=== PATIENT | female | born 1950 | race Caucasian/White ===

== ENCOUNTER 2022-12-16 18:21 | Outpatient (RCR) | payer OTHER, SELFPAY | END 2023-01-09 23:59 | disposition home or self-care (01) | LOC: MM 18:21 | PROVIDERS: PCP Internal Medicine; Visit Provider Internal Medicine | DX: Z51.81 Encounter for therapeutic drug level monitoring (principal); Z79.01 Long term (current) use of anticoagulants; I48.91 Unspecified atrial fibrillation | CPT/HCPCS: 85610; G0463 ==

== ENCOUNTER 2023-01-15 10:40 | Outpatient (RCR) | payer OTHER, SELFPAY | END 2023-02-09 16:55 | disposition home or self-care (01) | LOC: MM 10:40 | PROVIDERS: PCP Internal Medicine; Visit Provider Internal Medicine | DX: Z51.81 Encounter for therapeutic drug level monitoring (principal); Z79.01 Long term (current) use of anticoagulants; I48.91 Unspecified atrial fibrillation | CPT/HCPCS: 85610; G0463 ==

== ENCOUNTER 2023-02-10 09:12 | Outpatient (RCR) | payer OTHER, SELFPAY | END 2023-03-12 17:29 | disposition home or self-care (01) | LOC: MM 09:12 | PROVIDERS: PCP Internal Medicine; Visit Provider Internal Medicine | DX: Z51.81 Encounter for therapeutic drug level monitoring (principal); Z79.01 Long term (current) use of anticoagulants; I48.91 Unspecified atrial fibrillation ==

== ENCOUNTER 2023-03-13 08:45 | Outpatient (RCR) | payer OTHER, SELFPAY | END 2023-04-10 16:46 | disposition home or self-care (01) | LOC: MM 08:45 | PROVIDERS: PCP Internal Medicine; Visit Provider Internal Medicine | DX: Z51.81 Encounter for therapeutic drug level monitoring (principal); Z79.01 Long term (current) use of anticoagulants; I48.91 Unspecified atrial fibrillation | CPT/HCPCS: 85610; G0463 ==

== ENCOUNTER 2023-04-13 01:45 | Outpatient (RCR) | payer OTHER, SELFPAY | END 2023-05-12 17:20 | disposition home or self-care (01) | LOC: MM 01:45 | PROVIDERS: PCP Internal Medicine; Visit Provider Internal Medicine | DX: Z51.81 Encounter for therapeutic drug level monitoring (principal); Z79.01 Long term (current) use of anticoagulants; I48.91 Unspecified atrial fibrillation | CPT/HCPCS: 85610; G0463 ==

== ENCOUNTER 2023-05-13 00:15 | Outpatient (RCR) | payer OTHER, SELFPAY | END 2023-06-11 16:04 | disposition home or self-care (01) | LOC: MM 00:15 | PROVIDERS: PCP Internal Medicine; Visit Provider Internal Medicine | DX: Z51.81 Encounter for therapeutic drug level monitoring (principal); Z79.01 Long term (current) use of anticoagulants; I48.91 Unspecified atrial fibrillation | CPT/HCPCS: 85610; G0463 ==

== ENCOUNTER 2023-05-27 12:57 | Outpatient (OUT) | payer OTHER, SELFPAY ==
--- NOTE | 2023-05-27 | MM_ITS ---
Patient Name: AFSHIN DENT MR#: [id number] : 1950 Exam Date: 05/27/2023 Ordering Doctor: DR MEHUL AGUERO M.D. RADIOLOGY REPORT PROCEDURE: MM TOMOSYNTHESIS SCREENING BI COMPARISON: MG MAMM SCREEN 3D АННА CAD, 05/23/2021. MG MAMM SCREEN 3D АННА CAD, 05/26/2022. INDICATIONS: Screening for malignant neoplasm Calculator Name NCI Breast Cancer Risk Assessment Tool 5 Year Breast Cancer Risk n/a% Lifetime Breast Cancer Risk n/a% Personal Breast Cancer Yes, Left breast cancer 2001 Personal Ovarian Cancer No Treatments Pt. had анна breast reduction surgery in 2001. Lt breast cancer found in excised tissue Family Cancers Aunt-maternal with breast cancer at age ~70; Aunt-maternal with breast cancer at age ~70; Aunt-maternal with breast cancer at age ~70; Father with lung, prostate, colon cancer at age ~75; Sister with colon cancer at age 51; Brother with lung cancer at age 64; Grandmother-maternal with lung cancer at age ~80; Uncle-maternal with colon cancer at age ~70. LOCATION: [facility] BREAST COMPOSITION: Scattered areas fibroglandular density. FINDINGS: DIAGNOSTIC CATEGORY 2--BENIGN FINDING. NO CHANGE FROM COMPARISON. Scattered benign-appearing calcifications are present. Scattered benign-appearing lymph nodes are present. RIGHT BREAST: No significant suspicious finding. Stable focal asymmetry with micro clip marker upper outer quadrant LEFT BREAST: No significant suspicious finding. Stable focal asymmetry upper outer quadrant for micro clip marker RECOMMENDATIONS: ROUTINE MAMMOGRAM AND CLINICAL EVALUATION IN 12 MONTHS. PLEASE NOTE: A NORMAL MAMMOGRAM DOES NOT EXCLUDE THE POSSIBILITY OF BREAST CANCER. A CLINICALLY SUSPICIOUS PALPABLE LUMP SHOULD BE BIOPSIED. Dictated by: Angel Fernández MD on 05/28/2023 at 07:50 Approved by: Angel Fernández MD on 05/28/2023 at 07:51
== END 2023-05-27 12:58 | disposition home or self-care (01) ==
LOC: MAMMO 12:57
PROVIDERS: PCP Internal Medicine; Visit Provider Internal Medicine
DX: Z12.31 Encounter for screening mammogram for malignant neoplasm of breast (principal); Z80.3 Family history of malignant neoplasm of breast; Z80.1 Family history of malignant neoplasm of trachea, bronchus and lung; Z80.42 Family history of malignant neoplasm of prostate; Z80.0 Family history of malignant neoplasm of digestive organs
CPT/HCPCS: 77063; 77067

== ENCOUNTER 2023-06-12 09:41 | Outpatient (RCR) | payer OTHER, SELFPAY | END 2023-07-10 15:24 | disposition home or self-care (01) | LOC: MM 09:41 | PROVIDERS: PCP Internal Medicine; Visit Provider Internal Medicine | DX: Z51.81 Encounter for therapeutic drug level monitoring (principal); Z79.01 Long term (current) use of anticoagulants; I48.91 Unspecified atrial fibrillation | CPT/HCPCS: 85610; G0463 ==

== ENCOUNTER 2023-06-29 12:30 | Outpatient (RCR) | payer OTHER, SELFPAY | END 2023-07-12 07:00 | disposition home or self-care (01) | LOC: PT 12:30 | PROVIDERS: PCP Internal Medicine; Visit Provider Nurse Practitioner Family | DX: M51.36 Other intervertebral disc degeneration, lumbar region (principal) | CPT/HCPCS: 97110; 97162 ==

== ENCOUNTER 2023-07-13 01:17 | Outpatient (RCR) | payer OTHER, SELFPAY | END 2023-08-12 17:20 | disposition home or self-care (01) | LOC: MM 01:17 | PROVIDERS: PCP Internal Medicine; Visit Provider Internal Medicine | DX: Z51.81 Encounter for therapeutic drug level monitoring (principal); Z79.01 Long term (current) use of anticoagulants; I48.91 Unspecified atrial fibrillation | CPT/HCPCS: 85610; G0463 ==

== ENCOUNTER 2023-08-13 01:07 | Outpatient (RCR) | payer OTHER, SELFPAY | END 2023-09-10 17:20 | disposition home or self-care (01) | LOC: MM 01:07 | PROVIDERS: PCP Internal Medicine; Visit Provider Internal Medicine | DX: Z51.81 Encounter for therapeutic drug level monitoring (principal); Z79.01 Long term (current) use of anticoagulants; I48.91 Unspecified atrial fibrillation | CPT/HCPCS: 85610; G0463 ==

== ENCOUNTER 2023-09-11 03:28 | Outpatient (RCR) | payer OTHER, SELFPAY | END 2023-10-09 14:08 | disposition home or self-care (01) | LOC: MM 03:28 | PROVIDERS: PCP Internal Medicine; Visit Provider Internal Medicine | DX: Z51.81 Encounter for therapeutic drug level monitoring (principal); Z79.01 Long term (current) use of anticoagulants; I48.91 Unspecified atrial fibrillation | CPT/HCPCS: 85610; G0463 ==

== ENCOUNTER 2023-10-12 00:22 | Outpatient (RCR) | payer OTHER, SELFPAY | END 2023-11-10 18:00 | disposition home or self-care (01) | LOC: MM 00:22 | PROVIDERS: PCP Internal Medicine; Visit Provider Internal Medicine | DX: Z51.81 Encounter for therapeutic drug level monitoring (principal); Z79.01 Long term (current) use of anticoagulants; I48.91 Unspecified atrial fibrillation | CPT/HCPCS: 85610; G0463 ==

== ENCOUNTER 2023-11-11 00:22 | Outpatient (RCR) | payer OTHER, SELFPAY | END 2023-12-11 11:20 | disposition home or self-care (01) | LOC: MM 00:22 | PROVIDERS: PCP Internal Medicine; Visit Provider Internal Medicine | DX: Z51.81 Encounter for therapeutic drug level monitoring (principal); Z79.01 Long term (current) use of anticoagulants; I48.91 Unspecified atrial fibrillation | CPT/HCPCS: 85610; G0463 ==

== ENCOUNTER 2023-12-14 00:27 | Outpatient (RCR) | payer OTHER, SELFPAY | END 2024-01-08 10:01 | disposition home or self-care (01) | LOC: MM 00:27 | PROVIDERS: PCP Internal Medicine; Visit Provider Internal Medicine | DX: Z51.81 Encounter for therapeutic drug level monitoring (principal); Z79.01 Long term (current) use of anticoagulants; I48.91 Unspecified atrial fibrillation | CPT/HCPCS: 85610; G0463 ==

== ENCOUNTER 2024-01-11 00:53 | Outpatient (RCR) | payer OTHER, SELFPAY | END 2024-02-10 09:48 | disposition home or self-care (01) | LOC: MM 00:53 | PROVIDERS: PCP Internal Medicine; Visit Provider Internal Medicine | DX: Z51.81 Encounter for therapeutic drug level monitoring (principal); Z79.01 Long term (current) use of anticoagulants; I48.91 Unspecified atrial fibrillation | CPT/HCPCS: 85610; G0463 ==

== ENCOUNTER 2024-02-11 00:33 | Outpatient (RCR) | payer OTHER, SELFPAY | END 2024-03-11 09:37 | disposition home or self-care (01) | LOC: MM 00:33 | PROVIDERS: PCP Internal Medicine; Visit Provider Internal Medicine | DX: Z51.81 Encounter for therapeutic drug level monitoring (principal); Z79.01 Long term (current) use of anticoagulants; I48.91 Unspecified atrial fibrillation | CPT/HCPCS: 85610; G0463 ==

== ENCOUNTER 2024-03-14 01:24 | Outpatient (RCR) | payer OTHER, SELFPAY | END 2024-04-11 23:53 | disposition home or self-care (01) | LOC: MM 01:24 | PROVIDERS: PCP Internal Medicine; Visit Provider Internal Medicine | DX: Z51.81 Encounter for therapeutic drug level monitoring (principal); Z79.01 Long term (current) use of anticoagulants; I48.91 Unspecified atrial fibrillation | CPT/HCPCS: 85610; G0463 ==

== ENCOUNTER 2024-04-12 01:38 | Outpatient (RCR) | payer OTHER, SELFPAY | END 2024-05-12 23:43 | disposition home or self-care (01) | LOC: MM 01:38 | PROVIDERS: PCP Internal Medicine; Visit Provider Internal Medicine | DX: Z51.81 Encounter for therapeutic drug level monitoring (principal); Z79.01 Long term (current) use of anticoagulants; I48.91 Unspecified atrial fibrillation | CPT/HCPCS: 85610; G0463 ==

== ENCOUNTER 2024-05-13 11:42 | Outpatient (RCR) | payer OTHER, SELFPAY | END 2024-06-11 23:59 | disposition home or self-care (01) | LOC: MM 11:42 | PROVIDERS: PCP Internal Medicine; Visit Provider Internal Medicine | DX: Z51.81 Encounter for therapeutic drug level monitoring (principal); Z79.01 Long term (current) use of anticoagulants; I48.91 Unspecified atrial fibrillation | CPT/HCPCS: 85610; G0463 ==

== ENCOUNTER 2024-05-31 11:27 | Outpatient (OUT) | payer OTHER, SELFPAY ==
--- NOTE | 2024-05-31 11:30 | MM_ITS ---
Patient Name: AFSHIN DENT MR#: [id number] : 1950 Exam Date: 05/31/2024 Ordering Doctor: DR MEHUL AGUERO M.D. RADIOLOGY REPORT PROCEDURE: MM TOMOSYNTHESIS SCREENING BI COMPARISON: MM TOMOSYNTHESIS SCREENING BI, 05/27/2023. MG MAMM SCREEN 3D АННА CAD, 05/26/2022. INDICATIONS: Screening Calculator Name NCI Breast Cancer Risk Assessment Tool 5 Year Breast Cancer Risk n/a% Lifetime Breast Cancer Risk n/a% Personal Breast Cancer Yes, Left breast cancer 2001 Personal Ovarian Cancer No Treatments Pt. had анна breast reduction surgery in 2001. Lt breast cancer found in excised tissue Family Cancers Aunt-maternal with breast cancer at age ~70; Aunt-maternal with breast cancer at age ~70; Aunt-maternal with breast cancer at age ~70; Father with lung, prostate, colon cancer at age ~75; Sister with colon cancer at age 51; Brother with lung cancer at age 64; Grandmother-maternal with lung cancer at age ~80; Uncle-maternal with colon cancer at age ~70. LOCATION: [facility] BREAST COMPOSITION: There are scattered areas of fibroglandular density. FINDINGS: DIAGNOSTIC CATEGORY 2--BENIGN FINDING. NO CHANGE FROM COMPARISON. Scattered benign-appearing nodules are present. Scattered benign-appearing calcifications are present. Scattered benign-appearing lymph nodes are present. RIGHT BREAST: No significant suspicious finding. Stable micro clip marker upper outer quadrant, posterior breast LEFT BREAST: No significant suspicious finding. Stable micro clip marker upper outer quadrant, mid breast RECOMMENDATIONS: ROUTINE MAMMOGRAM AND CLINICAL EVALUATION IN 12 MONTHS. PLEASE NOTE: A NORMAL MAMMOGRAM DOES NOT EXCLUDE THE POSSIBILITY OF BREAST CANCER. A CLINICALLY SUSPICIOUS PALPABLE LUMP SHOULD BE BIOPSIED. Dictated by: Angel Fernández MD on 06/01/2024 at 08:20 Approved by: Angel Fernández MD on 06/01/2024 at 08:21
== END 2024-05-31 11:28 | disposition home or self-care (01) ==
LOC: MAMMO 11:27
PROVIDERS: PCP Internal Medicine; Visit Provider Internal Medicine
DX: Z12.31 Encounter for screening mammogram for malignant neoplasm of breast (principal); Z80.3 Family history of malignant neoplasm of breast; Z80.1 Family history of malignant neoplasm of trachea, bronchus and lung; Z80.42 Family history of malignant neoplasm of prostate; Z80.0 Family history of malignant neoplasm of digestive organs; Z51.81 Encounter for therapeutic drug level monitoring; Z79.01 Long term (current) use of anticoagulants; I48.91 Unspecified atrial fibrillation
CPT/HCPCS: 77063; 77067; 85610; G0463

== ENCOUNTER 2024-06-13 03:55 | Outpatient (RCR) | payer OTHER, SELFPAY | END 2024-07-12 09:33 | disposition home or self-care (01) | LOC: MM 03:55 | PROVIDERS: PCP Internal Medicine; Visit Provider Internal Medicine | DX: Z51.81 Encounter for therapeutic drug level monitoring (principal); Z79.01 Long term (current) use of anticoagulants; I48.91 Unspecified atrial fibrillation | CPT/HCPCS: 85610; G0463 ==

== ENCOUNTER 2024-07-14 00:41 | Outpatient (RCR) | payer OTHER, SELFPAY | END 2024-08-12 15:19 | disposition home or self-care (01) | LOC: MM 00:41 | PROVIDERS: PCP Internal Medicine; Visit Provider Internal Medicine | DX: Z51.81 Encounter for therapeutic drug level monitoring (principal); Z79.01 Long term (current) use of anticoagulants; I48.91 Unspecified atrial fibrillation | CPT/HCPCS: 85610; G0463 ==

== ENCOUNTER 2024-08-15 02:34 | Outpatient (RCR) | payer OTHER, SELFPAY | END 2024-09-09 13:34 | disposition home or self-care (01) | LOC: MM 02:34 | PROVIDERS: PCP Internal Medicine; Visit Provider Internal Medicine | DX: Z51.81 Encounter for therapeutic drug level monitoring (principal); Z79.01 Long term (current) use of anticoagulants; I48.91 Unspecified atrial fibrillation | CPT/HCPCS: 85610; G0463 ==

== ENCOUNTER 2024-09-11 07:46 | Outpatient (RCR) | payer OTHER, SELFPAY | END 2024-10-07 13:20 | disposition home or self-care (01) | LOC: MM 07:46 | PROVIDERS: PCP Internal Medicine; Visit Provider Internal Medicine | DX: Z51.81 Encounter for therapeutic drug level monitoring (principal); Z79.1 Long term (current) use of non-steroidal anti-inflammatories (NSAID); I48.91 Unspecified atrial fibrillation | CPT/HCPCS: 85610; G0463 ==

== ENCOUNTER 2024-09-15 08:55 | Outpatient (OUT) | payer OTHER, SELFPAY ==
--- OUTSIDE RECORDS SUMMARY | 2024-09-15 09:17 | XMS_ITS | CCD ---
Author Organization [facility] Care Team Providers Care Paint Specialist Name Role Phone ANDRZEJ MARINELLI Unavailable Unavailable ANDRZEJ MARINELLI B Unavailable Unavailable CORINNA DAVIS Unavailable Unavailable ANDRZEJ MARINELLI Unavailable Unavailable CORINNA DAVIS Unavailable Unavailable Unavailable Unavailable Corinna Davis MD Primary Care Provider Kyle Almendarez II Unavailable [phone] Bandar Bales Unavailable Adrienne Mas Unavailable Loli Pineda Unavailable Ke Ellington Unavailable BERNIE Almendarez Primary Care Provider DO Ari Atkinson Attending Provider KYLE ALMENDAREZ Primary Care Physician Kyle Almendarez II Primary Care Unavail able Kyle Almendarez II Primary Care Unavail able Sharif GIBBS, Dr. Danish Pierre Attending Unavailable Sharif GIBBS, Dr. Danish Pierre Referring Unavailable FAWWAD, YOUNG H Attending Unavailable FAWWATiffanie, YOUNG H Admitting Unavailable DR KYLE ALMENDAREZ Primary Care Unavailable DR KYLE ALMENDAREZ Primary Care Unavailable FAWWAD, YOUNG H Attending Unavailable FAWWAD, YOUNG H Admitting Unavailable FAWWAD, YOUNG H Admitting Unavailable FAWWAD, YOUNG H Attending Unavailable DR KYLE ALMENDAREZ Primary Care Unavailable FAWWAD, YOUNG H Attending Unavailable FAWWAD, YOUNG H Admitting Unavailable DR KYLE ALMENDAREZ Primary Care Unavailable FAWWAD, YOUNG H Attending Unavailable FAWWAD, YOUNG H Admitting Unavailable DR KYLE ALMENDAREZ Primary Care Unavailable FAWWAD, YOUNG H Attending Unavailable FAWWAD, YOUNG H Admitting Unavailable ALMENDAREZ, DR CARVER Primary Care Unavailable FAWWAD, YOUNG H Attending Unavailable FAWWAD, YOUNG H Admitting Unavailable ALMENDAREZ, DR CARVER Primary Care Unavailable FAWWAD, YOUNG H Attending Unavailable FAWWAD, YOUNG H Admitting Unavailable ALMENDAREZ, DR CARVER Primary Care Unavailable ALMENDAREZ, DR CARVER Primary Care Unavailable ALMENDAREZ, DR CARVER Consulting Unavailable ALMENDAREZ, DR CARVER Attending Unavailable ALMENDAREZ, DR CARVER Admitting Unavailable WEST, DR KE Russ Consulting Unavailable ALMENDAREZ, DR CARVER Primary Care Unavailable COMFORT, RACHEAL Consulting Unavailable COMFORT, RACHEAL Attending Unavailable COMFORT, RACHEAL Admitting Unavailable ALMENDAREZ, DR CARVER Primary Care Unavailable ALMENDAREZ, DR CARVER Consulting Unavailable ALMENDAREZ, DR CARVER Attending Unavailable ALMENDAREZ, DR CARVER Admitting Unavailable DICKERSON, WINCHA Consulting Unavailable JOVANNI, JULIAN Consulting Unavailable JOVANNI, JULIAN Attending Unavailable ALMENDAREZ, DR CARVER Primary Care Unavailable JOVANNI, JULIAN Admitting Unavailable FAWWAD, YOUNG H Admitting Unavailable FAWWAD, YOUNG H Attending Unavailable ALMENDAREZ, DR CARVER Primary Care Unavailable FAWWAD, YOUNG H Admitting Unavailable FAWWAD, YOUNG H Attending Unavailable ALMENDAREZ, DR CARVER Primary Care Unavailable FAWWAD, YOUNG H Attending Unavailable FAWWAD, YOUNG H Admitting Unavailable ALMENDAREZ, DR CARVER Primary Care Unavailable Timmis, Cathie H Admitting Unavailable Timmis, Cathie H Referring Unavailable Timmis, Cathie H Attending Unavailable Micah Walker Attending Unavailable Micah Walker Admitting Unavailable Timmis, Cathie H Attending Unavailable Timmis, Cathie H Admitting Unavailable Timmis, Cathie H Referring Unavailable Demetrio Devine II Unavailable BERNIE Almendarez Primary Care Provider MD Demetrio Devine II Attending Provider [phone] THA Gonzalez Attending Provider Farnaz Gonzalez Unavailable Kyle Almendarez MD Primary Care Provider BERNIE Almendarez Primary Care Provider MD Demetrio Devine II Attending Provider MD Eriberto Davis Attending Provider MD Quita Hall Attending Provider Kyle Almendarez MD Unavailable Kyle Almendarez MD Primary Care Provider [phone] DANISH OLGUIN Referring Unavailable KYLE ALMENDAREZ Primary Care Unavailable ANDRZEJ MARINELLI Referring Unavailable KYLE ALMENDAREZ Primary Care Unavailable QUITA HALL Attending Unavailable KYLE ALMENDAREZ Primary Care Unavailable ANDRZEJ MARINELLI Referring Unavailable Kelvin WILSON, Jenae Unavailable Kyle Almendarez II Primary Care Provider [phone] Ly DO, Apryl Thrasher Attending Provider HEMSILVIA, ROSALVA Dallas Attending Unavailable HEMMER, ROSALVA Dallas Attending Unavailable HEMMER, ROSALVA Dallas Attending Unavailable HEMMER, ROSALVA Dallas Attending Unavailable HEMMER, ROSALVA Dallas Attending Unavailable HEMMER, ROSALVA Dallas Attending Unavailable HEMMER, ROSALVA Dallas Attending Unavailable Hall, Quita Attending Unavailable Quita Hall Admitting Unavailable Kyle Almendarez Primary Care Unavailable Eriberto Davis Admitting Unavailable Kyle Almendarez Primary Care Unavailable Eriberto Davis Attending Unavailable Kyle Almendarez Primary Care Unavailable Demetrio Devine II Attending UnavailDemetrio Harding II Admitting Unavailabl e Kyle Almendarez Primary Care Unavailable Apryl Cardenas Attending Unavailable Apryl Cardenas Admitting Unavailable Allergies Allergy Classification Reported Allergen(s) Allergy Type Date of Onset Reaction(s) Facility (15 sources) Acetaminophen / Propoxyphene; Translations: [Darvocet A500] Drug Allergy Hallucinations Xtime Other (5 sources) Indomethacin; Translations: [Indocin CAPS] Drug Allergy Hallucinations [facility] 250 DO Work Phone: (20 sources) tapentadol; Translations: [Nucynta TABS] Drug Allergy 02-05-20 17 Other: See Comments, Hallucinations [facility] (20 sources) Indomethacin; Translations: [indomethacin] Drug Allergy 02-28-20 18 Other: See Comments, Hallucinations, Unknown [facility] (5 sources) Propoxyphene N-Acetaminophen; Translations: [PROPOXYPHENE N-ACETAMINOPHEN] Drug Allergy 05-02-20 13 Other: See Comments, Hallucinations [facility] (10 sources) Indomethacin Drug Allergy hallucinations Xtime Other (15 sources) Darwescet-N 100; Translations: [acetaminophen / propoxyphene] Drug allergy 05-02-20 13 Unknown, Hallucination [facility] (20 sources) Lisinopril; Translations: [lisinopril] Drug Allergy 11-08-19 22 Cough [facility] (19 sources) Propoxyphene; Translations: [propoxyphene] Drug Allergy 11-08-19 22 Hallucinating, Hallucinating, hallucinations [facility] (20 sources) tapentadol; Translations: [TAPENTADOL] Drug Allergy 11-08-19 22 Confusion, Confusion, hallucinations [facility] Comment on above: confused/hallucinati ons after hip replacement surgery (20 sources) Escitalopram; Translations: [escitalopram] Drug Allergy 06-22-20 23 Unknown (qualifier value), Unknown [facility] (1 source) Morphine Drug Allergy 06-16-20 21 [facility] (2 sources) Procyclidine; Translations: [Indocin] Drug Allergy [facility] (2 sources) tapentadol; Translations: [Nucynta] Drug Allergy 02-18-20 17 [facility] (4 sources) Escitalopram; Translations: [ESCITALOPRAM OXALATE] Drug Allergy 07-02-20 23 Other [facility] (20 sources) Acetaminophen; Translations: [acetaminophen] Drug Allergy 06-22-20 23 Hallucinations [facility] (11 sources) Morphine Drug Allergy 11-26-19 23 Nausea Only [facility] (11 sources) tapentadol Drug Allergy 11-26-19 23 [facility] (11 sources) Other Propensity to adverse reactions 05-02-20 13 Hallucinations [facility] (1 source) Escitalopram Drug Allergy 09-02-19 25 [facility] Rep[facility] (2 sources) Indomethacin Drug Allergy 03-31-20 24 [facility] Repository Medications Current Medications Medication Drug Class(es) Dates Sig (Normalized) Sig (Original) [id number] 200 actuat albuterol 0.09 mg/actuat metered dose inhaler (9 sources) beta2-Adrenergic Agonist Start: 09-02-2024 take 2 puff(s) by inhalation every four hours albuterol HFA 90 mcg/act inhaler Inhale 2 puffs every 4 (four) hours if needed for shortness of breath 09/02/2024 Active Start: 09-02-2024 take 1 puff(s) by in halation every four to six hours as needed for wheezing Albuterol Sulfate 90 mcg/actuation HFA aerosol inhaler Active 2 PUFF INHALATION EVERY 4-6 HOURS as needed for shortness of breath or wheezing 8.5 September 02, 2024 12:00am Start: 06-08-2021 take 2 puff(s) by in halation four times daily as needed Albuterol Sulfate HFA 108 (90 Base) MCG/ACT 2 puffs Inhalation qid prn Please provide spacer May, Active Start: 06-08-2021 take 2 puff(s) by in halation four times daily as needed Albuterol Sulfate HFA 108 (90 Base) MCG/ACT 2 puffs Inhalation qid prn Please provide spacer May, Active amoxicillin 500 mg oral capsule (20 sources) Penicillin-class Antibacterial Start: 09-21-2023 take 4 capsules by mouth every hour amoxicillin (Amoxil) 500 MG capsule Indications: Ganglion cyst of right foot To take 4 pills by mouth 1 hour prior to procedure and for pills postprocedure by mouth 8 capsule 2 09/21/2023 Active Start: 05-04-2021 take 1 tablet by jessica every twelve hours Amoxicillin 875 MG 1 capsule Orally every 12 hours for 7 days Apr, Not-Taking/PRN aspirin 81 mg chewable tablet (20 sources) Platelet Aggregation Inhibitor, Nonsteroidal Anti-inflammatory Drug Start: 09-22-2022 aspirin 81 mg Inna w Tab 81 mg = 1 tab(s), Chewed, Daily, Refills(s) 0, Prophylaxis Start Date: 09/22/22 Status: Ordered Start: 02-27-2018 End: 07-21-2022 Aspirin 81 mg Tablet,Delayed Release (Dr/Ec) Discontinued 81 MG PO TuFr@0900 10 September 06, 2020 12:00am July 21, 2022 6:40am Start: 01-10-2018 End: 02-27-2018 take 1 tablet by mouth once daily Aspirin 81 mg tablet,delayed release (DR/EC) Discontinued 81 MG PO Daily January 09, 2018 11:00pm February 27, 2018 5:37pm Aspirin EC 81 MG TBEC 2 per week Quantity: 24 Refills: 3 Ordered: 10-Jun-2022 Danish Olguin MD Active take 1 tablet by jessica th every week Aspirin EC 81 MG Oral Tablet Delayed Release TAKE TABLET Weekly Quantity: 90 Refills: 0 Ordered: 09-Sep-2021 Danish Olguin MD Active Comment on above: Take 81 mg by mouth as needed. 2 per week biotin 10 mg oral tablet (11 sources) take 1 tablet by mouth once daily biotin 10 MG tablet Take 10 mg by mouth 1 (one) time each day. Active Calcium (12 sources) Phosphate Binder, Calcium Start: 09-22-2022 take 1 tablet by mouth twice daily Calcium 600+D oral tablet 1 tab(s), Oral, BID, Refill(s) 0, Prophylaxis Start Date: 09/22/22 Status: Ordered Calcium Active calcium carbonate 1250 mg or al tablet (20 sources) Start: 09-06-2020 Calcium Carbon ate (Oyster Shell Calcium 500) 500 mg calcium (1,250 mg) Tablet Active 500 MG PO Every morning September 06, 2020 12:00am Start: 02-27-2018 End: 09-07-2020 take 1 tablet by mouth once daily in the morning Calcium Carbonate (Calcium 600) 600 mg calcium (1,500 mg) Tablet Discontinued 600 MG PO Every morning February 26, 2018 11:00pm September 07, 2020 8:58am take 1 tablet by jessica th once daily calcium carbonate 600 mg calcium (1,500 mg) tablet Take 1 tablet (1,500 mg) by mouth once daily. Active calcium carbonat e (CALCIUM 600 ORAL) Take by mouth. 0 Active Comment on above: Take by mouth. Cholecalciferol (20 sources) Vitamin D Start: 07-21-2022 take 1 capsule by mouth once daily Cholecalciferol (Vitamin D3) 100 mcg (4,000 unit) Capsule Active 100 MCG PO Daily July 21, 2022 12:00am Start: 07-21-2022 Cholecalcifero l (Vitamin D3) Active July 21, 2022 1:00am Start: 07-21-2022 Cholecalcifero l (Vitamin D3) Active July 21, 2022 12:00am Start: 07-21-2022 Cholecalcifero l (Vitamin D3) Active July 21, 2022 12:00am take 1 capsule by mo uth in the morning cholecalciferol (Vitamin D-3) 25 MCG (1000 UT) capsule Take 1,000 Units by mouth in the morning. Active take 1 capsule by mo uth once daily cholecalciferol (Vitamin D-3) 25 MCG (1000 UT) capsule Take 1 capsule (25 mcg) by mouth once daily. Active Chondroitin Sulfates / Glucosamine (20 sources) Start: 09-22-2022 take 3 capsules by mouth once daily Glucosamine Chondroitin 3 cap(s), Oral, Daily, Refill(s) 0, Prophylaxis Start Date: 09/22/22 Status: Ordered Start: 07-30-2017 End: 08-23-2020 take 2 tablets by mouth once daily Glucosamine-Chondroitin (Cosamin Ds) 500-400 mg Tablet Discontinued 2 TAB PO Daily July 30, 2017 12:00am August 23, 2020 6:42pm Glucosamine-Naeem droitin (GLUCOSAMINE CHONDR COMPLEX PO) 1 (one) time each day. Active Classic (3 sources) Start: 09-22-2022 take 1 tablet by mouth once daily Classic 1 tab(s), Oral, Daily, Refill(s) 0, Prophylaxis Start Date: 09/22/22 Status: Ordered docusate sodium 50 mg / sennosides, intermediate 8.6 mg oral tablet (1 source) Start: 11-27-2020 take 8.6-50 mg by mouth at bedtime Senokot S 8.6-50 MG 2 tablets Orally at bedtime for 30 day(s) November, Active fluticasone propionate 0.05 mg/actuat metered dose nasal spray (18 sources) Corticosteroid Start: 05-04-2021 take 1 spray(s) nasal route once daily Flonase Allergy Relief 50 MCG/ACT 1 spray in each nostril Nasally Once a day for 14 day(s) Apr, Active Start: 05-04-2021 take 1 spray(s) nasa l route once daily Flonase Allergy Relief 50 MCG/ACT 1 spray in each nostril Nasally Once a day for 14 day(s) Apr, Active Start: 09-06-2020 End: 09-10-2021 Fluticasone Propionate 50 mcg/actuation [place],Suspension Discontinued 2 SPRAY NARES-BOTH Daily 2 September 06, 2020 12:00am September 10, 2021 9:58am furosemide 20 mg oral tablet (20 sources) Loop Diuretic Start: 09-10-2021 take 1 tablet by mouth once daily as needed for edema Furosemide 20 mg Tablet Active 20 MG PO Daily as needed for Edema September 10, 2021 12:00am Lasix Active Comment on above: Take 20 mg by mouth once daily. gabapentin 300 mg oral capsule (20 sources) Anti-epileptic Agent Start: 09-10-2021 take 1 capsule by mouth four times daily Gabapentin 300 mg capsule Active 300 MG PO Four times daily September 10, 2021 12:00am Start: 09-10-2021 gabapentin (Ne urontin) 300 MG capsule Indications: Spinal stenosis of lumbar region with neurogenic claudication Take 1 capsule (300 mg) by mouth in the morning and 1 capsule (300 mg) at noon and 1 capsule (300 mg) in the evening and 1 capsule (300 mg) before bedtime. 400 capsule 3 09/22/2023 Active GABAPENTIN ORAL Take by mouth. 0 Active Comment on above: Take by mouth. Glucosamine (4 sources) Glucosamine Acti ve Glucosamine-Chondroit- Vit C-Mn (7 sources) Start: 09-10-2021 take 1 capsule by mouth once daily Glucosamine-Chondroit -Vit C-Mn Active 1 CAP PO Daily September 10, 2021 1:00am Start: 09-10-2021 take 1 capsule by [facility] once daily Upilmxqntfx-Fjnekcaxn-Rbt C-Mn Active 1 CAP PO Daily September 10, 2021 12:00am Ifstspjjoqp-Qiztsaatn-Rxf C-Mn 500-400 mg Capsule (2 sources) Start: 09-10-2021 take 1 capsule by mouth once daily Xwqsddkkbrv-Wzhpxpcvq-Kzf C-Mn 500-400 mg Capsule Active 1 CAP PO Daily September 10, 2021 12:00am glucosamine/ruby Baumann sod (glucosamine-chondroitin) 1,500-1,200 mg/30 mL liquid (3 sources) glucosamine/naeem dr qiana Baumann sod (glucosamine-chondroitin) 1,500-1,200 mg/30 mL liquid Take by mouth once daily. Active glucosamine/naeem dr qiana Baumann sod (glucosamine-chondroitin) 1,500-1,200 mg/30 mL liquid Take by mouth once daily. 0 Active hydrocortisone 10 mg/ml / neomycin 3.5 mg/ml / polymyxin b [id number] unt/ml otic solution (5 sources) Aminoglycoside Antibacterial, Polymyxin-class Antibacterial, Corticosteroid Start: 05-04-2021 Nppfxjsz-Ngtbtolrm-AG [id number] 4 drops into affected ear Otic Three times a day for 7 day(s) Apr, Active magnesium oxide 400 mg oral tablet (20 sources) Start: 02-16-2020 End: 09-07-2020 take 1 tablet by mouth once daily in the morning Magnesium Oxide 400 mg (241.3 mg magnesium) Tablet Active 400 MG PO Every morning September 06, 2020 12:00am Comment on above: Take by mouth. methylPREDNISolone 4 mg oral tablet (8 sources) Corticosteroid Start: 09-02-2024 End: 09-07-2024 take 1 tablet by mouth once Methylprednisolone (Medrol ([place])) 4 mg tablets,dose pack Active 0 PO per package directions September 02, 2024 12:00am PO PER PKG DIR for 6 days Start: 06-22-2023 Medrol 4 MG as directed Orally daily for 6 Jun, Active metroNIDAZOLE 0.01 mg/mg topical gel (11 sources) Nitroimidazole Antimicrobial Start: 02-24-2024 metroNIDAZOLE (Metrogel) 1 % gel Indications: Rosacea Apply topically Daily 60 g 2 02/24/2024 Active multivit-min/ferrou s fumarate (MULTI VITAMIN ORAL) (3 sources) take 1 tablet by mouth once daily multivit-min/[place] us fumarate (MULTI VITAMIN ORAL) Take 1 tablet by mouth once daily. Active take 1 tablet by mouth once johny y multivit-min/ferrous fumarate (MULTI VITAMIN ORAL) Take 1 tablet by mouth once daily. 0 Active Multivitamin With Folic Acid (Thera) 400 mcg Tablet (18 sources) Start: 09-06-2020 take 1 tablet by mouth once daily in the morning Multivitamin With Folic Acid (Thera) 400 mcg Tablet Active 1 TAB PO Every morning September 06, 2020 1:00am Start: 09-06-2020 take 1 tablet by jessica th once daily in the morning Multivitamin With Folic Acid (Thera) 400 mcg Tablet Active 1 TAB PO Every morning September 06, 2020 12:00am Start: 08-23-2020 End: 08-23-2020 take 1 tablet by mouth once daily Multivitamin With Folic Acid (Thera) 400 mcg Tablet Discontinued 1 TAB PO Daily August 23, 2020 1:00am August 23, 2020 7:56pm Start: 08-23-2020 End: 08-23-2020 take 1 tablet by mouth once daily Multivitamin With Folic Acid (Thera) 400 mcg Tablet Discontinued 1 TAB PO Daily August 23, 2020 12:00am August 23, 2020 6:56pm mupirocin 0.02 mg/mg topical ointment (1 source) RNA Synthetase Inhibitor Antibacterial Start: 07-04-2024 End: 07-14-2024 mupirocin (Bactroban) 2 % ointment Indications: Hair follicle infection Apply topically 3 (three) times a day for 10 days 22 g 07/04/2024 07/14/2024 Active ofloxacin 3 mg/ml ophthalmic solution (2 sources) Quinolone Antimicrobial Start: 05-25-2024 End: 06-04-2024 ofloxacin (Ocuflox) 0.3 % ophthalmic solution Indications: Hordeolum externum of left upper eyelid Administer 1 drop into the left eye in the morning and 1 drop at noon and 1 drop in the evening and 1 drop before bedtime. Do all this for 10 days. 10 mL 05/25/2024 06/04/2024 Active Miralax (20 sources) Osmotic Laxative Start: 09-22-2022 take 17 g by mouth once daily MiraLax 17 gm, Oral, Daily, Refill(s) 0, Prophylaxis Start Date: 09/22/22 Status: Ordered Start: 02-07-2020 End: 09-07-2020 Polyethylene Glycol 3350 (Mi ralax) 17 gram Powder In Packet Active 17 GM PO Daily as needed for Constipation September 06, 2020 12:00am Miralax 17 grams orally at hour of sleep Active Comment on above: Take by mouth once d aily. Dissolve dose in 4 - 8 ounces of liquid and take as directed. Vit-Fe Fumarate-FA ( Vitamin) 27-0.8 MG tablet (11 sources) Vit-Fe Fumarate-FA ( Vitamin) 27-0.8 MG tablet 1 (one) time each day at the same time. Active propranolol hydrochloride 10 mg oral tablet (15 sources) beta-Adrenergic Severo Start: 04-05-2024 End: 04-05-2025 Propranolol 10 mg tablet Active MG PO September 02, 2024 12:00am Start: 11-11-2023 take 1 tablet by jessica th in the morning propranolol (Inderal) 10 mg tablet Take 1 tablet (10 mg) by mouth early in the morning.. 11/11/2023 Active Vitamin B Complex (7 sources) Start: 11-12-2021 take 1 capsule by mo orh once daily Vitamin B Complex Active 1 CAP PO Daily November 12, 2021 12:00am Start: 11-12-2021 take 1 capsule by mouth once d aily Vitamin B Complex Active 1 CAP PO Daily November 11, 2021 11:00pm Vitamin B Complex oral capsule (3 sources) Start: 09-22-2022 take 1 capsule by mouth once daily Vitamin B Complex oral capsule 1 cap(s), Oral, Daily, Refill(s) 0, Prophylaxis Start Date: 09/22/22 Status: Ordered warfarin sodium 1 mg oral tablet (20 sources) Vitamin K Antagonist Start: 07-15-2022 Warfarin 1 mg tablet Active MG PO September 02, 2024 12:00am Start: 09-10-2021 End: 09-02-2024 Warfarin 2.5 mg Tablet Disco ntinued 2.5 MG PO Daily September 10, 2021 12:00am September 02, 2024 10:15am 2.5 5x a week 2 days additional 1mg Start: 08-09-2020 End: 09-07-2020 Warfarin 2.5 mg Tablet Disco ntinued 1.25 MG PO As Directed August 09, 2020 12:00am September 07, 2020 8:58am On Hold: HOLD UNTIL CLEARED BY DR LOWERY Takes 1.25 mg on Thursday Start: 08-09-2020 End: 09-07-2020 Warfarin Discontinued 1.25 M G PO As Directed August 09, 2020 1:00am September 07, 2020 9:58am Takes 1.25 mg on Thursday Start: 02-16-2020 End: 08-09-2020 Warfarin 2.5 mg tablet Disco ntinued 0 .ROUTE .COMPLEX February 15, 2020 11:00pm August 09, 2020 10:23am On Hold: Resume on 02/21/20. takes 2.5 mg Thursday thru Thursday, 1.25mg on Thursday Start: 01-10-2018 End: 09-07-2020 Warfarin 2.5 mg Tablet Disco ntinued 2.5 MG PO As Directed August 09, 2020 12:00am September 07, 2020 8:58am On Hold: HOLD UNTIL CLEARED BY DR LOWERY Takes 2.5 mg Thursday thru Thursday warfarin sodium (WARFARIN ORAL) Take by mouth. 0 Active Warfarin Sodium TABS TAKE 1 TABLET DAILY OR DIRECTED BY [facility] Quantity: 0 Refills: 0 Ordered: 06-Sep-2021 DO Active Comment on above: Take by mouth. Zinc (20 sources) Start: 09-22-2022 take 140 mg by mouth once daily Zinc 140 mg, Oral, Daily, Refills(s) 0, Prophylaxis Start Date: 09/22/22 Status: Ordered Start: 07-30-2017 End: 09-07-2020 take 1 tablet by mouth once daily in the morning Zinc 50 mg Tablet Discontinued 50 MG PO Every morning July 30, 2017 12:00am September 07, 2020 8:58am Start: 07-30-2017 End: 09-07-2020 take 50 mg by mouth once daily in the morning Zinc Discontinued 50 MG PO Every morning July 30, 2017 1:00am September 07, 2020 9:58am Start: 07-30-2017 End: 09-07-2020 take 50 mg by mouth once daily in the morning Zinc Discontinued 50 MG PO Every morning July 30, 2017 12:00am September 07, 2020 8:58am take 1 capsule by mo [facility] once daily zinc 50 MG tablet Take 1 capsule by mouth 1 (one) time each day. Active Zinc 50 mg tab T yamileth by mouth. 0 Active take 1 tablet by jessica once daily Zinc 50 MG 1 tablet Orally Once a day for 30 day(s) Active Comment on above: Take by mouth. zinc gluconate 50 mg oral tablet (20 sources) Start: 09-06-2020 take 1 tablet by mouth once daily Zinc Gluconate 50 mg Tablet Active 50 MG PO Daily September 06, 2020 12:00am Completed/Discontinued Medications Medication Drug Class(es) Dates Sig (Normalized) Sig (Original) acetaminophen 325 mg oral tablet (18 sources) Start: 08-23-2020 End: 09-10-2021 take 2 tablets by mouth every four hours as needed for pain Acetaminophen 325 mg Tablet Discontinued 650 MG PO Q4H as needed for Pain September 06, 2020 12:00am September 10, 2021 9:57am Start: 08-23-2020 End: 09-10-2021 take 650 mg by mouth every four hours Acetaminophen Discontinued 650 MG PO Q4H September 06, 2020 1:00am September 10, 2021 10:57am acetaminophen 325 mg / HYDROcodone bitartrate 5 mg oral tablet (20 sources) Opioid Agonist Start: 09-06-2020 End: 11-12-2021 take 1 tablet by mouth every six hours as needed for pain Hydrocodone-Acetaminophen 5-325 mg Tablet Discontinued 1 TAB PO Q6H as needed for Pain 30 September 06, 2020 November 12, 2021 6:54am Start: 02-15-2020 End: 08-09-2020 take 2 tablets by mouth every four to six hours as needed for pain Hydrocodone-Acetaminophen ([place]) 5-325 mg tablet Discontinued 2 TAB PO EVERY 4-6 HOURS as needed for Pain Scale 6 - 10 February 16, 2020 11:46am August 09, 2020 10:19am amLODIPine 10 mg oral tablet (9 sources) Dihydropyridine Calcium Channel Severo Start: 09-06-2020 End: 09-10-2021 take 1 tablet by mouth once daily Amlodipine 10 mg Tablet Discontinued 10 MG PO Daily September 06, 2020 12:00am September 10, 2021 9:57am azithromycin 250 mg oral tablet (8 sources) Macrolide Antimicrobial Start: 06-08-2021 Zithromax 250 MG 2 tablet on the first day, then 1 tablet daily for 4 days Orally Once a day for 5 day(s) May, Not-Taking/PRN baclofen 10 mg oral tablet (6 sources) gamma-Aminobutyric Acid-ergic Agonist End: 07-02-2023 take 1 tablet by mouth once daily baclofen (Lioresal) 10 mg tablet Take 1 tablet (10 mg) by mouth once daily. 0 07/02/2023 Discontinued (Therapy completed) calcium carbonate 1500 mg / cholecalciferol 200 unt oral capsule (9 sources) Vitamin D Start: 07-30-2017 End: 01-09-2018 take 1 tablet by mouth once daily Calcium Carbonate-Vitamin D3 (Calcium 600 + D(3)) 600 mg calcium- 200 unit Capsule Discontinued 1 TAB PO Daily July 30, 2017 12:00am January 09, 2018 5:37am diazePAM 5 mg oral tablet (20 sources) Benzodiazepine Start: 02-15-2020 End: 09-10-2021 take 1 tablet by mouth four times daily as needed for muscle spasms Diazepam 5 mg tablet Discontinued 5 MG PO Four times daily as needed for Muscle Spasm August 09, 2020 10:23am September 07, 2020 8:58am diclofenac sodium 75 mg delayed release oral tablet (9 sources) Nonsteroidal Anti-inflammatory Drug Start: 02-07-2020 End: 08-09-2020 take 1 tablet by mouth twice daily Diclofenac Sodium 75 mg tablet,delayed release (DR/EC) Discontinued 75 MG PO Twice daily February 06, 2020 11:00pm August 09, 2020 10:19am dilTIAZem hydrochloride 30 mg oral tablet (1 source) Calcium Channel Severo Start: 03-23-2024 End: 03-28-2024 take 1 tablet by mouth twice daily dilTIAZem (Cardizem) 30 mg immediate release tablet Indications: Paroxysmal atrial fibrillation (Multi) Take 1 tablet (30 mg) by mouth 2 times a day. 180 tablet 3 03/23/2024 03/28/2024 Discontinued (Discontinued by another clinician) docusate sodium 100 mg oral capsule (18 sources) Start: 09-06-2020 End: 09-10-2021 take 1 capsule by mouth twice daily Docusate Sodium (Dok) 100 mg Capsule Discontinued 100 MG PO Twice daily 60 September 06, 2020 12:00am September 10, 2021 9:58am Start: 07-30-2017 End: 03-09-2019 take 1 capsule by mouth twice daily Docusate Sodium (Stool Softener) 100 mg Capsule Discontinued 100 MG PO Twice daily July 30, 2017 12:00am March 09, 2019 11:25am Durolane (7 sources) Start: 05-18-2018 Durolane 06 2017 60 mg [facility] Restore (9 sources) Start: 07-30-2017 End: 03-09-2019 take 1 capsule by mouth once daily [facility] Restore Discontinued 1 CAP PO Daily July 30, 2017 1:00am March 09, 2019 12:26pm Start: 07-30-2017 End: 03-09-2019 take 1 capsule by mouth once daily [facility] Restore Discontinued 1 CAP PO Daily July 30, 2017 12:00am March 09, 2019 11:26am Eye Vitamin (9 sources) Start: 03-09-2019 End: 09-07-2020 take 1 capsule by mouth once daily Eye Vitamin Discontinued 1 CAP PO Daily March 09, 2019 12:00am September 07, 2020 9:58am Start: 03-09-2019 End: 09-07-2020 take 1 capsule by mouth once daily Eye Vitamin Discontinued 1 CAP PO Daily March 08, 2019 11:00pm September 07, 2020 8:58am flecainide acetate 50 mg oral tablet (9 sources) Antiarrhythmic Start: 01-10-2018 End: 03-09-2019 take 1 tablet by mouth twice daily Flecainide 50 mg Tablet Discontinued 50 MG PO Twice daily 60 January 09, 2018 11:00pm March 09, 2019 11:25am gluc kiran/chondro kiran A/vit C/Mn (GLUCOSAMINE-CHONDR OITIN COMPLX ORAL) (1 source) gluc kiran/chondro kiran A/vit C/Mn (GLUCOSAMINE-CHONDR OITIN COMPLX ORAL) Take by mouth. 0 Active Comment on above: Take by mouth. Glucosamine Chondr 1500 Complx Oral Capsule (5 sources) Glucosamine Naeem dr 1500 Complx Oral Capsule TAKE 2 CAPSULE Daily Quantity: 0 Refills: 0 Ordered: 06-Sep-2021 DO Active hyaluronate (20 sources) Start: 03-25-2017 Euflexxa 13 Se p, 2016 2 mL Start: 03-18-2017 Euflexxa 06 Se p2016 2 mL Start: 03-11-2017 Euflexxa 30 Au g2016 2 mL losartan potassium 25 mg oral tablet (9 sources) Angiotensin 2 Receptor Severo Start: 09-06-2020 End: 09-10-2021 take 1 tablet by mouth once daily in the morning Losartan 25 mg Tablet Discontinued 25 MG PO Every morning 30 February 25th, 2021 12:00am September 10, 2021 10:01am lubiprostone 0.024 mg oral capsule (10 sources) Chloride Channel Activator Start: 11-21-2020 take 1 capsule by mouth twice daily at mealtime Lubiprostone 24 MCG 1 capsule with food and water Orally Twice a day for 30 day(s) November, Not-Taking/PRN Start: 11-21-2020 take 1 capsule by mo [facility] twice daily at mealtime Lubiprostone 24 MCG 1 capsule with food and water Orally Twice a day for 30 day(s) November, Not-Taking Magnesium (20 sources) Start: 07-30-2017 End: 02-16-2020 take 2 tablets by mouth once daily Magnesium 200 mg Tablet Discontinued 400 MG PO Daily July 30, 2017 12:00am February 16, 2020 11:44am Start: 07-30-2017 End: 02-16-2020 take 400 mg by mouth once daily Magnesium Discontinued 400 MG PO Daily July 30, 2017 1:00am February 16, 2020 12:44pm Start: 07-30-2017 End: 02-16-2020 take 400 mg by mouth once daily Magnesium Discontinued 400 MG PO Daily July 30, 2017 12:00am February 16, 2020 11:44am take 1 capsule by [facility] once daily Magnesium 400 MG capsule Take 400 mg by mouth 1 (one) time each day. Active Magnesium Active take 1 tablet by jessica once daily Magnesium 400 MG Oral Tablet Take 1 tablet daily Quantity: 0 Refills: 0 Ordered: 06-Sep-2021 DO Active meloxicam 7.5 mg oral tablet (18 sources) Nonsteroidal Anti-inflammatory Drug Start: 02-27-2018 End: 02-07-2020 take 1 tablet by mouth twice daily Meloxicam 7.5 mg Tablet Discontinued 7.5 MG PO Twice daily February 26, 2018 11:00pm February 07, 2020 12:41pm Start: 07-30-2017 End: 01-10-2018 take 1 tablet by mouth twice daily Meloxicam 7.5 mg Tablet Discontinued 7.5 MG PO Twice daily July 30, 2017 12:00am January 10, 2018 6:51am Multi Vitamin Oral Tablet (5 sources) take 1 tablet by mouth once daily Multi Vitamin Oral Tablet TAKE 1 TABLET DAILY. Quantity: 0 Refills: 0 Ordered: 06-Sep-2021 DO Active Multivitamin preparation (17 sources) Start: 07-30-2017 End: 08-09-2020 take 1 tablet by mouth once daily in the morning Multivitamin Discontinued 1 TAB PO Every morning July 30, 2017 1:00am August 09, 2020 11:26am Start: 07-30-2017 End: 08-09-2020 take 1 tablet by mouth once daily in the morning Multivitamin Discontinued 1 TAB PO Every morning July 30, 2017 12:00am August 09, 2020 10:26am Multivitamin Act samantha Multivitamin Tablet (2 sources) Start: 07-30-2017 End: 08-09-2020 take 1 tablet by mouth once daily in the morning Multivitamin Tablet Discontinued 1 TAB PO Every morning July 30, 2017 12:00am August 09, 2020 10:26am Multivitamin With Folic Acid (Thera) 400 mcg tablet (9 sources) Start: 08-23-2020 End: 09-07-2020 take 1 tablet by mouth once daily in the morning Multivitamin With Folic Acid (Thera) 400 mcg tablet Discontinued 1 TAB PO Every morning August 23, 2020 7:55pm September 07, 2020 9:58am Start: 08-23-2020 End: 09-07-2020 take 1 tablet by mouth once daily in the morning Multivitamin With Folic Acid (Thera) 400 mcg tablet Discontinued 1 TAB PO Every morning August 23, 2020 6:55pm September 07, 2020 8:58am naloxegol 12.5 mg oral tablet (10 sources) Opioid Antagonist take 1 tablet by mouth once daily in the morning Movantik 12.5 MG TAKE 1 TABLET BY MOUTH EVERY MORNING Oral for 30 Not-Taking/PRN omeprazole 20 mg delayed release oral capsule (20 sources) Proton Pump Inhibitor Start: End: take 2 capsules by mouth once daily in the morning Omeprazole 20 mg capsule,delayed release(DR/EC) Discontinued 40 MG PO Every morning July 21, 2022 6:40am September 02, 2024 10:16am Start: 07-21-2022 take 40 mg by mouth once daily in the morning Omeprazole Active 40 MG PO Every morning July 21, 2022 7:40am Start: 11-21-2020 Omeprazole 40 mg capsule,delayed release(DR/EC) Active MG PO September 02, 2024 12:00am Start: 07-30-2017 End: 07-21-2022 take 1 capsule by mouth once daily in the morning Omeprazole 20 mg Capsule,Delayed Release(Dr/Ec) Discontinued 20 MG PO Every morning September 06, 2020 12:00am July 21, 2022 6:40am Comment on above: Take 20 mg by mouth once daily. ondansetron 4 mg oral tablet (10 sources) Serotonin-3 Receptor Antagonist Ondansetron HCl 4 MG TAKE 1 TABLET BY MOUTH THREE TIMES DAILY Oral tid prn for 30 days PRN Not-Taking/PRN oxyCODONE hydrochloride 5 mg oral tablet (18 sources) Opioid Agonist Start: End: take 2 tablets by mouth every six hours as needed for pain Oxycodone 5 mg Tablet Discontinued 10 MG PO Every 6 hours as needed for Pain Scale 6 - 10 August 23, 2020 September 07, 2020 8:58am Start: 08-23-2020 End: 09-07-2020 take 1 tablet by mouth every six hours as needed for pain Oxycodone 5 mg Tablet Discontinued 5 MG PO Every 6 hours as needed for Pain Scale 1 - 5 August 23, 2020 September 07, 2020 8:58am Start: 08-23-2020 End: 09-07-2020 take 10 mg by mouth every six hours Oxycodone Discontinued 10 MG PO Every 6 hours August 23, 2020 September 07, 2020 9:58am Polyethylene Glycols (10 sources) Polyethylene Gly col 3350 - 1 packet mixed with 8 ounces of fluid Orally Once a day Not-Taking/PRN Polyethylene Gly col 3350 - 1 packet mixed with 8 ounces of fluid Orally Once a day Not-Taking potassium chloride 10 meq extended release oral capsule (9 sources) Start: 11-04-2020 End: 09-10-2021 take 1 capsule by mouth once daily Potassium Chloride 10 mEq capsule, extended release Discontinued 10 MEQ PO Daily November 03, 2020 11:00pm September 10, 2021 9:58am predniSONE 10 mg oral tablet (9 sources) Start: 09-06-2020 End: 09-10-2021 take 2 tablets by mouth once daily Prednisone 10 mg Tablet Discontinued 20 MG PO Daily 0 September 06, 2020 12:00am September 10, 2021 9:58am Please contact the information source for Taper Schedule details. Start: 09-06-2020 End: 09-10-2021 take 20 mg by mouth once daily Prednisone Discontinued 20 MG PO Daily 0 September 06, 2020 1:00am September 10, 2021 10:58am Vit No.200-Uzqv-Osrcj ( Vitamin) 27 mg iron- 800 mcg Tablet (9 sources) Start: 08-09-2020 End: 09-07-2020 take 1 tablet by mouth once daily Vit No.809-Wnhq-Pxfrd ( Vitamin) 27 mg iron- 800 mcg Tablet Discontinued 1 TAB PO Daily August 09, 2020 1:00am September 07, 2020 9:58am Start: 08-09-2020 End: 09-07-2020 take 1 tablet by mouth once daily Vit No.857-Wzdg-Rdmyu ( Vitamin) 27 mg iron- 800 mcg Tablet Discontinued 1 TAB PO Daily August 09, 2020 12:00am September 07, 2020 8:58am vit no.124/iron/folic ( VITAMIN ORAL) (1 source) vit no.124/iron/folic ( VITAMIN ORAL) Take by mouth. 0 Active Comment on above: Take by mouth. Psyllium (9 sources) Start: 07-30-19 End: 01-10-20 take 1 [tsp_us] by mouth once daily Psyllium Powder Discontinued 2 TSP PO Daily July 30, 2017 12:00am January 09, 2018 5:37am Start: 07-30-2017 End: 01-09-2018 take 1 [tsp_us] by mouth once daily Psyllium Discontinued 2 TSP PO Daily July 30, 2017 1:00am January 09, 2018 6:37am Start: 07-30-2017 End: 01-09-2018 take 1 [tsp_us] by mouth once daily Psyllium Discontinued 2 TSP PO Daily July 30, 2017 12:00am January 09, 2018 5:37am Sennosides (Senna Lax) 8.6 mg Tablet (9 sources) Start: 09-06-2020 End: 09-10-2021 take 2 tablets by mouth once daily at bedtime Sennosides (Senna Lax) 8.6 mg Tablet Discontinued 2 TAB PO Daily at bedtime September 06, 2020 1:00am September 10, 2021 10:58am Start: 09-06-2020 End: 09-10-2021 take 2 tablets by mouth once daily at bedtime Sennosides (Senna Lax) 8.6 mg Tablet Discontinued 2 TAB PO Daily at bedtime September 06, 2020 12:00am September 10, 2021 9:58am sotalol hydrochloride 120 mg oral tablet (8 sources) Antiarrhythmic Start: 02-11-2024 End: 08-26-2024 Sotalol 120 mg tablet Discontinued 120 MG PO February 10, 2024 11:00pm August 26, 2024 10:46am Start: 01-26-2024 take 0.5 tablet by m outh every twelve hours sotalol (Betapace) 120 mg tablet Indications: Paroxysmal atrial fibrillation (Multi) Take 0.5 tablets (60 mg) by mouth every 12 hours. 30 tablet 5 01/26/2024 Active Soy Protein (7 sources) Start: 07-30-2017 End: 01-09-2018 Soy Protein Discontinued 1 s coop/day PO Daily July 30, 2017 1:00am January 09, 2018 6:37am Start: 07-30-2017 End: 01-09-2018 Soy Protein Discontinued 1 s coop/day PO Daily July 30, 2017 12:00am January 09, 2018 5:37am Soy Protein Powder (2 sources) Start: 07-30-2017 End: 01-09-2018 Soy Protein Powder Discontinued 1 scoop/day PO Daily July 30, 2017 12:00am January 09, 2018 5:37am spironolactone 25 mg oral tablet (20 sources) Aldosterone Antagonist Start: 07-30-2017 End: 03-28-2025 take 1 tablet by mouth once daily at bedtime Spironolactone 25 mg Tablet Discontinued 25 MG PO Daily at bedtime September 06, 2020 12:00am September 10, 2021 9:59am tiZANidine 2 mg oral capsule (9 sources) Central alpha-2 Adrenergic Agonist Start: 02-27-2018 End: 03-09-2019 take 1 capsule by mouth once daily Tizanidine 2 mg Capsule Discontinued 2 MG PO daily February 26, 2018 11:00pm March 09, 2019 11:25am Triamcinolone (20 sources) Corticosteroid Start: 09-14-2019 Kenalog -40 mg Sep, 40 mg Start: 04-13-2018 Kenalog -40 mg Apr, 40 mg Start: 03-25-2017 Kenalog -40 mg Mar, 40 mg vitamin b complex capsule (1 source) take 1 capsule by mouth once daily vitamin b complex capsule Take 1 capsule by mouth once daily. 0 Active Comment on above: Take 1 capsule by mo [facility] once daily. Vitamin B Complex Capsule (2 sources) Start: 11-12-2021 End: 08-26-2024 take 1 capsule by mouth once daily Vitamin B Complex Capsule Discontinued 1 CAP PO Daily November 11, 2021 11:00pm August 26, 2024 10:47am Vitamin B-3 TABS (3 sources) Vitamin B-3 TABS TAKE 1 TABLET DAILY DIRECTED. Quantity: 0 Refills: 0 Ordered: 06-Sep-2021 DO Active Problems Active Problems Problem Classification Problem Date Documented Da te Episodic/Chronic Abdominal pain (20 sources) Right flank pain; Translations: [Unspecified abdominal pain] Onset: 4 Resolved: 5 05-22-2019 Episodic Acute bronchitis (2 sources) Viral bronchitis; Translations: [Acute bronchitis due to other specified organisms] 09-02-2024 Episodic Administrative/social admission (11 sources) Other reduced mobility; Translations: [Impaired mobility and activities of daily living] 08-24-2020 Episodic Cancer; other and unspecified primary (5 sources) H/O: neoplasm; Translations: [Personal history of other specified diseases] Episodic Cardiac dysrhythmias (20 sources) Paroxysmal atrial fibrillation; Translations: [Atrial fibrillation] Onset: 3 01-09-2018 Chronic Cardiac dysrhythmias (20 sources) Tachycardia; Translations: [Tachycardia, unspecified] Onset: 4 01-09-2018 Episodic Chronic kidney disease (13 sources) Chronic kidney disease stage 3B ; Translations: [Stage 3b chronic kidney disease (HCC)] Onset: 3 11-25-2022 Chronic Deficiency and other anemia (20 sources) Anemia; Translations: [Anemia, unspecified] Onset: 4 Resolved: 5 08-24-2020 Episodic Diabetes mellitus without complication (13 sources) Impaired glucose tolerance; Translations: [Impaired glucose tolerance (oral)] Onset: 3 11-25-2022 Episodic Disorders of lipid metabolism (13 sources) Mixed hyperlipidemia; Translations: [Mixed hyperlipidemia] Onset: 3 11-25-2022 Chronic Diverticulosis and diverticulitis (10 sources) Diverticular disease; Translations: [Diverticulosis of intestine, part unspecified, without perforation or abscess without bleeding] Chronic E Codes: Fall (19 sources) Fall; Translations: [Unspecified fall, initial encounter] Onset: 4 Resolved: 5 08-01-2022 Episodic Esophageal disorders (20 sources) Lewis's esophagus; Translations: [Lewis's esophagus without dysplasia] Onset: 3 08-24-2020 Chronic Essential hypertension (20 sources) Essential hypertension; Translations: [Unspecified essential hypertension] Onset: 2 01-09-2018 Chronic Essential hypertension (1 source) Essential hypertension Onset: 8 Fluid and electrolyte disorders (20 sources) Hypokalemia; Translations: [Hypokalemia] Onset: 4 11-04-2020 Episodic Gout and other crystal arthropathies (13 sources) Podagra; Translations: [Gout, unspecified] Onset: 3 11-25-2022 Chronic Headache; including migraine (9 sources) Migraine 03-09-2019 Chronic Inflammation; infection of eye (except that caused by tuberculosis or sexually transmitteddisease) (2 sources) Hordeolum externum of upper eyelid of left eye; Translations: [Hordeolum externum left upper eyelid] 05-25-2024 Episodic Malaise and fatigue (2 sources) Physical deconditioning; Translations: [Other malaise] 07-26-2024 Episodic Menopausal disorders (13 sources) Primary ovarian failure; Translations: [Other primary ovarian failure] Onset: 3 11-25-2022 Chronic Mood disorders (13 sources) Reactive depression (situational); Translations: [Major depressive disorder, single episode, unspecified] Onset: 3 11-25-2022 Chronic Nonspecific chest pain (20 sources) Chest pain; Translations: [Chest pain, unspecified] Onset: 4 Resolved: 5 01-09-2018 Episodic Osteoarthritis (20 sources) Osteoarthritis of hip; Translations: [Unilateral primary osteoarthritis, right hip] Onset: 1 Resolved: 1 Chronic Osteoporosis (10 sources) Postmenopausal osteoporosis; Translations: [Age-related osteoporosis without current pathological fracture] Chronic Other acquired deformities (20 sources) Contracture of joint of right ankle; Translations: [Contracture, right ankle] Onset: 3 11-25-2022 Chronic Other acquired deformities (20 sources) Kyphoscoliosis deformity of spine; Translations: [Scoliosis, unspecified] Onset: 3 08-22-2020 Chronic Other acquired deformities (20 sources) Spondylolisthesis; Translations: [Spondylolisthesis, lumbar region] Episodic Other aftercare (20 sources) Drug therapy finding; Translations: [Long-term (current) use of anticoagulants] Onset: 3 07-02-2023 Episodic Other aftercare (5 sources) Encounter for therapeutic drug level monitoring; Translations: [ENC THERAPEUTC DRUG LEVL MONITORING] Onset: 3 Episodic Other circulatory disease (5 sources) History of clinical finding in subject; Translations: [Personal history of other diseases of circulatory system] Episodic Other connective tissue disease (20 sources) History of repair of hip joint; Translations: [Presence of right artificial hip joint] Onset: 3 11-25-2022 Chronic Other connective tissue disease (10 sources) History of left hip replacement; Translations: [Presence of left artificial hip joint] Chronic Other connective tissue disease (10 sources) History of total replacement of right hip joint; Translations: [Presence of right artificial hip joint] Chronic Other connective tissue disease (9 sources) Monoparesis - leg; Translations: [Other symptoms and signs involving the musculoskeletal system] 08-24-2020 Episodic Other connective tissue disease (3 sources) Arthrodesis status; Translations: [Arthrodesis status] Episodic Other connective tissue disease (6 sources) Trochanteric bursitis; Translations: [Trochanteric bursitis, right hip] 02-11-2024 Episodic Other connective tissue disease (5 sources) Trochanteric bursitis, right hip; Translations: [Enthesopathy of hip region] 02-11-2024 Episodic Other connective tissue disease (3 sources) History of lumbar fusion; Translations: [Arthrodesis status] 03-31-2024 Episodic Other connective tissue disease (13 sources) Other symptoms and signs involving the musculoskeletal system; Translations: [Other musculoskeletal symptoms referable to limbs] Onset: 4 11-11-2023 Episodic Other ear and sense organ disorders (9 sources) Bilateral tinnitus; Translations: [Tinnitus, bilateral] Onset: 5 07-26-2024 Episodic Other gastrointestinal disorders (10 sources) Chronic idiopathic constipation; Translations: [Chronic idiopathic constipation] Chronic Other gastrointestinal disorders (13 sources) Irritable bowel syndrome characterized by constipation; Translations: [Irritable bowel syndrome with constipation] Onset: 3 11-25-2022 Chronic Other gastrointestinal disorders (19 sources) Constipation; Translations: [Constipation, unspecified] 08-30-2020 Episodic Other gastrointestinal disorders (10 sources) Esophageal dysphagia; Translations: [Dysphagia, unspecified] Episodic Other gastrointestinal disorders (13 sources) Slow transit constipation; Translations: [Slow transit constipation] Onset: 3 11-25-2022 Episodic Other inflammatory condition of skin (13 sources) Rosacea; Translations: [Rosacea, unspecified] Onset: 4 02-24-2024 Chronic Other injuries and conditions due to external causes (15 sources) At high risk for fall; Translations: [History of falling] Onset: 4 05-25-2024 Episodic Other nervous system disorders (10 sources) Neuropathy; Translations: [Polyneuropathy, unspecified] Chronic Other nervous system disorders (10 sources) Chronic pain; Translations: [Other chronic pain] Chronic Other nervous system disorders (2 sources) Other chronic pain; Translations: [Other chronic pain G89.29] Onset: 1 Resolved: 2 Chronic Other nervous system disorders (9 sources) Cervical myelopathy; Translations: [Disease of spinal cord, unspecified] 02-15-2020 Chronic Other nervous system disorders (20 sources) Postoperative pain ; Translations: [Other acute postprocedural pain] Onset: 4 08-24-2020 Episodic Other nervous system disorders (3 sources) Paresthesia; Translations: [Paresthesia of skin] Episodic Other nervous system disorders (1 source) Paresthesia of skin Episodic Other nervous system disorders (13 sources) Tremor; Translations: [Tremor, unspecified] Onset: 4 09-22-2023 Episodic Other non-traumatic joint disorders (3 sources) Pain in right knee; Translations: [Pain in joint, lower leg] Episodic Other non-traumatic joint disorders (19 sources) Shoulder pain; Translations: [Pain in unspecified shoulder] Onset: 4 Resolved: 5 08-01-2022 Episodic Other non-traumatic joint disorders (19 sources) Pain in unspecified knee; Translations: [Knee pain] Onset: 4 08-01-2022 Episodic Other nutritional; endocrine; and metabolic disorders (10 sources) Body mass index 30+ - obesity; Translations: [Obesity, unspecified] Chronic Other screening for suspected conditions (not mental disorders or infectious disease) (20 sources) Abnormal electrocardiogram [ECG] [EKG]; Translations: [Abnormal findings on diagnostic imaging of other specified body structures] Onset: 8 Resolved: 5 08-24-2020 Episodic Other skin disorders (1 source) Hair follicle disorder; Translations: [Follicular disorder, unspecified] 07-04-2024 Episodic Other upper respiratory disease (1 source) Disorder of the nose; Translations: [Other specified disorders of nose and nasal sinuses] Onset: 3 Episodic Other upper respiratory disease (2 sources) Hoarse; Translations: [Dysphonia] 05-25-2024 Episodic Peripheral and visceral atherosclerosis (20 sources) Peripheral vascular disease; Translations: [Peripheral vascular disease, unspecified] Onset: 0 Resolved: 4 12-03-2022 Chronic Residual codes; unclassified (20 sources) Sleep apnea; Translations: [Sleep apnea, unspecified] Onset: 4 07-21-2022 Chronic Comment on above: no longer need CPAP since lost weight Residual codes; unclassified (13 sources) Dependence on enabling machine or device; Translations: [Dependence on other enabling machines and devices] Onset: 3 11-25-2022 Chronic Residual codes; unclassified (2 sources) Swelling - edema - symptom; Translations: [Edema] Episodic Residual codes; unclassified (20 sources) Patient encounter status; Translations: [Encounter for prophylactic measures, unspecified] Onset: 4 Resolved: 5 08-24-2020 Episodic Residual codes; unclassified (20 sources) History of operative procedure on lumbar spinal structure; Translations: [Other specified postprocedural states] Onset: 4 08-24-2020 Episodic Residual codes; unclassified (13 sources) Edema of right lower limb; Translations: [Localized edema] Onset: 3 11-25-2022 Episodic Residual codes; unclassified (2 sources) Memory impairment; Translations: [Other amnesia] 05-25-2024 Episodic Screening and history of mental health and substance abuse codes (20 sources) Ex-smoker; Translations: [Personal history of tobacco use] Onset: 2 05-25-2024 Episodic Comment on above: quit 1971; Spondylosis; intervertebral disc disorders; other back problems (20 sources) Lumbosacral spondylosis without myelopathy; Translations: [Other spondylosis with radiculopathy, lumbar region] Onset: 1 Resolved: 2 Chronic Superficial injury; contusion (19 sources) Contusion of head; Translations: [Contusion of unspecified part of head, initial encounter] Onset: 4 Resolved: 5 08-01-2022 Episodic Unclassified (2 sources) Abnormal electrocardiogram [ECG] [EKG] / R94.31(ICD-9) Onset: 8 Unclassified (2 sources) Abnormal findings on diagnostic imaging of body structures / R93.8(ICD-9) Onset: 8 Unclassified (1 source) Atrial septal defect / Q21.1(ICD-9) Onset: 8 Unclassified (3 sources) History of clinical finding in subject 09-22-2022 Past or Other Problems Problem Classification Problem Date Documented Da te Episodic/Chronic Chronic obstructive pulmonary disease and bronchiectasis (1 source) Bronchitis, not specified as acute or chronic Onset: 1 Resolved: 1 Episodic Gastrointestinal hemorrhage (4 sources) Gastrointestinal hemorrhage, unspecified; Translations: [GASTROINTESTINAL HEMORRHAGE UNS] Onset: 2 Episodic Immunizations and screening for infectious disease (1 source) Contact with and (suspected) exposure to other viral communicable diseases Onset: 1 Resolved: 1 Episodic Mood disorders (11 sources) Mood disorders Onset: 4 Resolved: 5 09-22-2023 Other aftercare (3 sources) residential (current) use of anticoagulants; Translations: [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 INTERN CURRNT USE ANTICOAGULANTS] Onset: 3 Episodic Other aftercare (1 source) Other penitentiary (current) drug therapy; Translations: [OTH HALF-WAY CURRENT DRUG THERAPY] Onset: 2 Episodic Other ear and sense organ disorders (1 source) Other infective otitis externa, left ear Onset: 1 Resolved: 1 Episodic Other injuries and conditions due to external causes (2 sources) History of falling; Translations: [History of falling] Onset: 4 Episodic Other non-traumatic joint disorders (1 source) Pain in right hip; Translations: [Pain in right hip] Onset: 4 Episodic Other nutritional; endocrine; and metabolic disorders (7 sources) Overweight in adulthood with body mass index of 25 or more but less than 30; Translations: [Overweight] Onset: 4 03-28-2024 Episodic Other nutritional; endocrine; and metabolic disorders (2 sources) Body mass index (BMI) 25.0-25.9, adult; Translations: [Body mass index (BMI) 25.0-25.9, adult] Onset: 4 Episodic Other upper respiratory disease (4 sources) Epistaxis; Translations: [EPISTAXIS] Onset: 2 Episodic Other upper respiratory disease (11 sources) Bleeding from nose; Translations: [Epistaxis] Onset: 3 Resolved: 4 09-22-2023 Episodic Otitis media and related conditions (1 source) Acute serous otitis media, left ear Onset: 1 Resolved: 1 Episodic Residual codes; unclassified (1 source) Pain, unspecified Onset: 1 Resolved: 1 Episodic Residual codes; unclassified (17 sources) Edema; Translations: [Edema] Onset: 3 Resolved: 4 06-05-2023 Episodic Residual codes; unclassified (1 source) Family history of malignant neoplasm of breast; Translations: [FAMILY HX MALIG NEOPLASM OF BREAST] Onset: 2 Episodic Residual codes; unclassified (1 source) Family history of malignant neoplasm of trachea, bronchus and lung; Translations: [FAM HX MALIG NEOPLSM TRACH BRON LNG] Onset: 2 Episodic Residual codes; unclassified (1 source) Family history of malignant neoplasm of digestive organs; Translations: [FAM HX MALIG NEOPLASM DIGESTIV ORGN] Onset: 2 Episodic Residual codes; unclassified (1 source) Family history of malignant neoplasm of prostate; Translations: [FAMILY HX MALIG NEOPLASM PROSTATE] Onset: 2 Episodic Residual codes; unclassified (1 source) Acquired absence of other specified parts of digestive tract; Translations: [ACQ ABSENCE OTH PART DIGESTV TRACT] Onset: 2 Episodic Residual codes; unclassified (1 source) Acquired absence of both cervix and uterus; Translations: [ACQUIRED ABSENCE BOTH CERVIX AND UTERUS] Onset: 2 Episodic Residual codes; unclassified (1 source) Other specified postprocedural states; Translations: [Other specified postprocedural states] Onset: 4 Episodic Spondylosis; intervertebral disc disorders; other back problems (20 sources) Radiculopathy due to lumbar intervertebral disc disorder; Translations: [Intervertebral disc disorders with radiculopathy, lumbar region] Onset: 1 Resolved: 1 Episodic Unclassified (3 sources) Onset: 3 Resolved: 4 07-02-2023 Results Test Name Value Interpretation Reference Range Facility Basophils Auto (Bld) [#/Vol] Ordered By: Apryl Cardenas on 09-08-2024 Basophils (Bld) [#/Vol] Automated basophil count 0.0-0.2 [facility] Basophils/100 WBC Auto (Bld) Ordered By: Apryl Cardenas on 09-08-2024 Basophils/100 WBC (Bld) Automated basophil % . [facility] Complete Blood Count Auto Di ffon 09-08-2024 Basophils (Bld) [#/Vol] 0.1 10*3/uL Normal 0.0-0.2 [facility] Comment on above: Result Comment: PERF ORMED BY: [place] [address] PATHOLOGIST DEPUTY GENERAL COUNSEL LILY CHRISTIANSON M.D. Performed By: #### C BC #### [address] Basophils/100 WBC (Bld) 1.0 % Normal . [facility] Comment on above: Performed By: #### C BC #### [address] Eosinophils (Bld) [#/Vol] 0.0 10*3/uL Normal 0.0-0.45 [facility] Comment on above: Performed By: #### C BC #### [address] Eosinophils/100 WBC (Bld) 0.8 % Normal . [facility] Comment on above: Performed By: #### C BC #### [address] Erythrocyte distribution width (RBC) [Ratio] 13.2 % Normal 11.9-15.3 [facility] Comment on above: Performed By: #### C BC #### [address] Hematocrit (Bld) [Volume fraction] 41.7 % Normal 34.0-46.4 [facility] Comment on above: Performed By: #### C BC #### [address] Hemoglobin (Bld) [Mass/Vol] 14.0 g/dL Normal 11.8-15.4 [facility] Comment on above: Performed By: #### C BC #### [address] Lymphocytes (Bld) [#/Vol] 1.6 10*3/uL Normal 1.00-4.8 [facility] Comment on above: Performed By: #### C BC #### [address] Lymphocytes/100 WBC (Bld) 27.0 % Normal . [facility] Comment on above: Performed By: #### C BC #### [address] MCH (RBC) [Entitic mass] 31.5 pg Normal 24.7-34.3 [facility] Comment on above: Performed By: #### C BC #### [address] MCV (RBC) [Entitic vol] 94.1 fL Normal 80-100 [facility] Comment on above: Performed By: #### C BC #### [address] Mean Corpuscular HGB Conc 33.5 g/dL Normal 32.0-35.0 [facility] Comment on above: Performed By: #### C BC #### [address] Monocytes (Bld) [#/Vol] 0.5 10*3/uL Normal 0.0-0.8 [facility] Comment on above: Performed By: #### C BC #### [address] Monocytes/100 WBC (Bld) 8.5 % Normal . [facility] Comment on above: Performed By: #### C BC #### [address] Neutrophils (Bld) [#/Vol] 3.6 10*3/uL Normal 1.8-7.7 [facility] Comment on above: Performed By: #### C BC #### [address] Neutrophils/100 WBC (Bld) 62.7 % Normal . [facility] Comment on above: Performed By: #### C BC #### [facility] [address] NRBC% 0.2 /100{WBC} Normal 0-0.5 [facility] Comment on above: Performed By: #### C BC #### [facility] [address] [place] [id number] [facility] Platelet mean volume (Bld) [Entitic vol] 8.3 fL Normal 6.3-10.7 The [facility] Comment on above: Performed By: #### C BC #### [facility] [address] [place] [address] [place] Platelets (Bld) [#/Vol] 278 10*3/uL Normal 150-450 [facility] Comment on above: Performed By: #### C BC #### [facility] [address] [place] [id number] [facility] RBC (Bld) [#/Vol] 4.44 10*6/uL Normal 3.60-5.00 The [facility] Comment on above: Performed By: #### C BC #### [facility] [address] [place] [address] [place] WBC (Bld) [#/Vol] 5.8 10*3/uL Normal 3.8-11.6 The [facility] Comment on above: Performed By: #### C BC #### [facility] [address] [place] [address] [place] Eosinophils Auto (Bld) [#/Vo l]Ordered By: Apryl Cardenas on 09-08-2024 Eosinophils (Bld) [#/Vol] Automated eosinophil count 0.0-0.45 [facility] Eosinophils/100 WBC Auto (Bl d)Ordered By: Apryl Ly on 09-08-2024 Eosinophils/100 WBC (Bld) Automated eosinophil % . [facility] Erythrocyte distribution wid th Auto (RBC) [Ratio]Ordered By: Apryl Cardenas on 09-08-2024 Erythrocyte distribution width (RBC) [Ratio] Erythrocyte distribution width [Ratio] by Automated count 11.9-15.3 [facility] Hematocrit Auto (Bld) [Volum e fraction]Ordered By: Apryl Cardenas on 09-08-2024 Hematocrit (Bld) [Volume fraction] Hematocrit [Volume Fraction] of Blood by Automated count 34.0-46.4 [facility] Hemoglobin [Mass/volume] in BloodOrdered By: Apryl Cardenas on 09-08-2024 Hemoglobin (Bld) [Mass/Vol] Hemoglobin [Mass/volume] in Blood 11.8-15.4 [facility] INR in Platelet poor plasma by Coagulation assayOrdered By: Apryl Cardenas on 09-08-2024 INR Coag (PPP) [Relative time] INR in Platelet poor plasma by Coagulation assay [facility] Comment on above: INR Therapeutic Rang e A) Pre- and Peroperative OAT started two weeks before surgery. NOT HIP SURGERY: 1.5 - 2.5 HIP SURGERY: 2 - 3B) Primary and secondary prevention of venous THROMBOSIS: 2 - 3C) Active venous thrombosis, pulmonary embolismand prevention of recurrent venous thrombosis: 2 - 3D) Prevention of arterial thromboembolismincluding patients with mechanical heart valves: 3 - 4.5 Leukocytes [#/volume] correc deya for nucleated erythrocytes in Blood by Automated counOrdered By: Apryl Cardenas on 09-08-2024 WBC corrected for nucl RBC Auto (Bld) [#/Vol] Leukocytes [#/volume] corrected for nucleated erythrocytes in Blood by Automated coun 3.8-11.6 [facility] Lymphocytes Auto (Bld) [#/Vo l]Ordered By: Apryl Cardenas on 09-08-2024 Lymphocytes (Bld) [#/Vol] Lymphocytes [#/volume] in Blood by Automated count 1.00-4.8 [facility] Lymphocytes/100 WBC Auto (Bl d)Ordered By: Apryl Cardenas on 09-08-2024 Lymphocytes/100 WBC (Bld) Lymphocytes/100 leukocytes in Blood by Automated count . [facility] MCH Auto (RBC) [Entitic mass ]Ordered By: Apryl Cardenas on 09-08-2024 MCH (RBC) [Entitic mass] MCH [Entitic mass] by Automated count 24.7-34.3 [facility] MCHC Auto (RBC) [Mass/Vol]Or dered By: Apryl Ly on 09-08-2024 MCHC (RBC) [Mass/Vol] MCHC [Mass/volume] by Automated count 32.0-35.0 [facility] MCV Auto (RBC) [Entitic vol] Ordered By: Apryl Ly on 09-08-2024 MCV (RBC) [Entitic vol] MCV [Entitic volume] by Automated count 80-100 [facility] Monocytes Auto (Bld) [#/Vol] Ordered By: Apryl Ly on 09-08-2024 Monocytes (Bld) [#/Vol] Automated blood monocyte count 0.0-0.8 [facility] Monocytes/100 WBC Auto (Bld) Ordered By: Apryl Ly on 09-08-2024 Monocytes/100 WBC (Bld) Automated monocyte % . [facility] Neutrophils Auto (Bld) [#/Vo l]Ordered By: Apryl Ly on 09-08-2024 Neutrophils (Bld) [#/Vol] Neutrophils [#/volume] in Blood by Automated count 1.8-7.7 [facility] Neutrophils/100 WBC Auto (Bl d)Ordered By: Apryl Ly on 09-08-2024 Neutrophils/100 WBC (Bld) Automated neutrophil % . [facility] Nucleated erythrocytes [Pres ence] in Blood by Automated countOrdered By: Apryl Cardenas on 09-08-2024 Nucleated RBC Auto Ql (Bld) Nucleated erythrocytes [Presence] in Blood by Automated count 0-0.5 [facility] Partial Thromboplastin Timeo n 09-08-2024 aPTT Coag (Bld) [Time] 30.4 s Normal 25.1-36.5 Th e [facility] Comment on above: Result Comment: A he matocrit value greater than 55% may lead to inaccurate results in coagulation testing. Patients having hematocrit values >55% require a special collection tube for coagulation studies. Please contact the laboratory at [phone] for redraw instructions. PERFORMED BY: [facility] [place] [address] PATHOLOGIST DEPUTY GENERAL COUNSEL LILY CHRISTIANSON M.D. Performed By: #### P TT, PT #### [facility] [address] [place] [id number] [facility] Platelet mean volume Auto (B ld) [Entitic vol]Ordered By: Apryl Cardenas on 09-08-2024 Platelet mean volume (Bld) [Entitic vol] Platelet mean volume [Entitic volume] in Blood by Automated count 6.3-10.7 [facility] Platelets Auto (Bld) [#/Vol] Ordered By: Apryl Cardenas on 09-08-2024 Platelets (Bld) [#/Vol] Platelets [#/volume] in Blood by Automated count 150-450 [facility] Prothrombin Time INRon 09-08 INR Coag (PPP) [Relative time] 1.2 {INR} Normal [facility] Comment on above: Result Comment: INR Therapeutic Range A) Pre- and Peroperative OAT started two weeks before surgery. NOT HIP SURGERY: 1.5 - 2.5 HIP SURGERY: 2 - 3 B) Primary and secondary prevention of venous THROMBOSIS: 2 - 3 C) Active venous thrombosis, pulmonary embolism and prevention of recurrent venous thrombosis: 2 - 3 D) Prevention of arterial thromboembolism including patients with mechanical heart valves: 3 - 4.5 Performed By: #### P TT, PT #### [facility] [address] [place] [id number] [facility] PT Coag (PPP) [Time] 13.5 s High 9.0-12.9 [facility] Comment on above: Result Comment: A he matocrit value greater than 55% may lead to inaccurate results in coagulation testing. Patients having hematocrit values >55% require a special collection tube for coagulation studies. Please contact the laboratory at [phone] for redraw instructions. Performed By: #### P TT, PT #### [facility] [address] [place] [address] [facility] Prothrombin time (PT)Ordered By: Apryl Cardenas on 09-08-2024 PT Coag (PPP) [Time] Prothrombin time (PT) High 9.0- 12.9 [facility] Comment on above: A hematocrit value g reater than 55% may lead to inaccurate results in coagulation testing. Patients having hematocrit values >55% require a special collection tube for coagulation studies. Please contact the laboratory at [phone] for redraw instructions. RBC Auto (Bld) [#/Vol]Ordere d By: Apryl Cardenas on 09-08-2024 RBC (Bld) [#/Vol] Erythrocytes [#/volu me] in Blood by Automated count 3.60-5.00 [facility] WBC Auto (Bld) [#/Vol]Ordere d By: Apryl Cardenas on 09-08-2024 WBC (Bld) [#/Vol] Leukocytes [#/volume ] in Blood by Automated count 3.8-11.6 [facility] aPTT in Platelet poor plasma by Coagulation assayOrdered By: Apryl Cardenas on 09-08-2024 aPTT Coag (PPP) [Time] Activated partial thromboplastin time (aPTT) in platelet poor plasma by coagulation a 25.1-36.5 [facility] Comment on above: A hematocrit value g reater than 55% may lead to inaccurate results in coagulation testing. Patients having hematocrit values >55% require a special collection tube for coagulation studies. Please contact the laboratory at [phone] for redraw instructions. COVID Cepheidon 09-02-2024 SARS-CoV-2 (COVID-19) RNA DAVIDSON+probe Ql (Unsp spec) COVID Cepid [facility] Laboratory - Microbiology an d Antimicrobial susceptibilityon 09-02-2024 SARS-CoV-2 (COVID-19) RNA DAVIDSON+probe Ql (Unsp spec) Negative [facility] No Panel Informationon 09-02 POC Influenza A (PCR) Negative [facility] POC Influenza B (PCR) Negative [facility] Alanine aminotransferase [En zymatic activity/volume] in Serum or PlasmaOrdered By: Quita Hall on 03-28-2024 ALT [Catalytic activity/Vol] 13 U/L Normal 7-52 [facility] Comment on above: Performed By: #### C BC, CMP #### [facility] [address] [place] [address] Albumin [Mass/volume] in Ser um or Plasma by Bromocresol green (BCG) dye binding methoOrdered By: Quita Hall on 03-28-2024 Albumin BCG dye [Mass/Vol] 4.2 g/dL 3.5-5.7 [facility] Alkaline phosphatase [Enzyma tic activity/volume] in Serum or PlasmaOrdered By: Quita Hall on 03-28-2024 ALP [Catalytic activity/Vol] 61 U/L Normal 34-104 [facility] Comment on above: Result Comment: PERF ORMED BY: [place] [address] PATHOLOGIST DEPUTY GENERAL COUNSEL KALPANA BYRNE M.D. Performed By: #### C BC, CMP #### [address] Aspartate aminotransferase [ Enzymatic activity/volume] in Serum or PlasmaOrdered By: Quita Hall on 03-28-2024 AST [Catalytic activity/Vol] 19 U/L Normal 13-39 [facility] Comment on above: Performed By: #### C BC, CMP #### [address] Automated basophil %Ordered By: Quita Hall on 03-28-2024 Basophils/100 WBC (Bld) 1.0 % Normal . [facility] Comment on above: Performed By: #### C BC, CMP #### [address] Automated basophil countOrde red By: Quita Hall on 03-28-2024 Basophils (Bld) [#/Vol] 0.1 10*3/uL Normal 0.0-0.2 [facility] Comment on above: Result Comment: PERF ORMED BY: [place] [address] PATHOLOGIST DEPUTY GENERAL COUNSEL KALPANA BYRNE M.D. Performed By: #### C BC, CMP #### [address] Automated blood monocyte cou ntOrdered By: Quita Hall on 03-28-2024 Monocytes (Bld) [#/Vol] 0.6 10*3/uL Normal 0.0-0.8 [facility] Comment on above: Performed By: #### C BC, CMP #### [address] Automated eosinophil %Ordere d By: Quita Hall on 03-28-2024 Eosinophils/100 WBC (Bld) 1.6 % Normal . [facility] Comment on above: Performed By: #### C BC, CMP #### [address] Automated eosinophil countOr dered By: Quita Hall on 03-28-2024 Eosinophils (Bld) [#/Vol] 0.1 10*3/uL Normal 0.0-0.45 [facility] Comment on above: Performed By: #### C BC, CMP #### [address] Automated monocyte %Ordered By: Quita Hall on 03-28-2024 Monocytes/100 WBC (Bld) 9.7 % Normal . [facility] Comment on above: Performed By: #### C BC, CMP #### [address] Automated neutrophil %Ordere d By: Quita Hall on 03-28-2024 Neutrophils/100 WBC (Bld) 56.2 % Normal . [facility] Comment on above: Performed By: #### C BC, CMP #### [address] Bilirubin.total [Mass/volume ] in Serum or PlasmaOrdered By: Quita Hall on 03-28-2024 Bilirubin [Mass/Vol] 0.4 mg/dL Normal 0.3-1.0 [facility] [place] [facility] Comment on above: Performed By: #### C BC, CMP #### [address] Calcium [Mass/volume] in Ser um or PlasmaOrdered By: Quita Hall on 03-28-2024 Calcium [Mass/Vol] 9.4 mg/dL Normal 8.6-10.3 [facility] Comment on above: Performed By: #### C BC, CMP #### [address] Carbon dioxide, total [Moles /volume] in Serum or PlasmaOrdered By: Quita Hall on 03-28-2024 CO2 [Moles/Vol] 34.6 mmol/L High 21.0-31.0 [facility] Comment on above: Performed By: #### C BC, CMP #### [address] Chloride [Moles/volume] in S pamela or PlasmaOrdered By: Quita Hall on 03-28-2024 Chloride [Moles/Vol] 104 mmol/L Normal 98-107 [facility] [place] [facility] Comment on above: Performed By: #### C BC, CMP #### [address] Complete Blood Count Auto Di ffon 03-28-2024 Mean Corpuscular HGB Conc 33.9 g/dL Normal 32.0-35.0 [facility] Comment on above: Performed By: #### C BC, CMP #### [address] NRBC% 0.2 /100{WBC} Normal 0-0.5 [facility] Comment on above: Performed By: #### C BC, CMP #### [address] Comprehensive Metabolic Pane maico 03-28-2024 Albumin [Mass/Vol] 4.2 g/dL Normal 3.5-5.7 [facility] Comment on above: Performed By: #### C BC, CMP #### [place] [address] [place] GFR/1.73 sq M.predicted MDRD (S/P/Bld) [Vol rate/Area] 48.966 mL/min/{1.73_m2} Normal [facility] Comment on above: Performed By: #### C BC, CMP #### [address] Creatinine [Mass/volume] in Serum or PlasmaOrdered By: Quita Hall on 03-28-2024 Creatinine [Mass/Vol] 1.17 mg/dL Normal 0.60-1.[address] [facility] Comment on above: Performed By: #### C BC, CMP #### [facility] [address] Erythrocyte distribution wid th [Ratio] by Automated countOrdered By: Quita Hall on 03-28-2024 Erythrocyte distribution width (RBC) [Ratio] 13.8 % Normal 11.9-15.3 [facility] Comment on above: Performed By: #### C BC, CMP #### [facility] [address] Erythrocytes [#/volume] in B lood by Automated countOrdered By: Quita Hall on 03-28-2024 RBC (Bld) [#/Vol] 4.11 10*6/uL Normal 3.60-5.00 [facility] Comment on above: Performed By: #### C BC, CMP #### [address] Glucose [Mass/volume] in Ser um or PlasmaOrdered By: Quita Hall on 03-28-2024 Glucose [Mass/Vol] 78 mg/dL Normal 70-100 [facility] Comment on above: ADA recommended refe rence rangeRandom Glucose Reference Range is dependent on time and content of last meal. Glucose of more than 200 mg/dL in a nonstressed, ambulatory subject supports the diagnosis of Diabetes Mellitus. Result Comment: Hilger om Glucose Reference Range is dependent on time and content of last meal. Glucose of more than 200 mg/dL in a nonstressed, ambulatory subject supports the diagnosis of Diabetes Mellitus. ADA recommended reference range Performed By: #### C BC, CMP #### [address] Hematocrit [Volume Fraction] of Blood by Automated countOrdered By: Quita Hall on 03-28-2024 Hematocrit (Bld) [Volume fraction] 38.5 % Normal 34.0-46.4 [facility] Comment on above: Performed By: #### C BC, CMP #### [address] Hemoglobin [Mass/volume] in BloodOrdered By: Quita Hall on 03-28-2024 Hemoglobin (Bld) [Mass/Vol] 13.0 g/dL Normal 11.8-15.4 [facility] Comment on above: Performed By: #### C BC, CMP #### [address] Leukocytes [#/volume] correc deya for nucleated erythrocytes in Blood by Automated counOrdered By: Quita Hall on 03-28-2024 WBC corrected for nucl RBC Auto (Bld) [#/Vol] 6.4 10*3/uL 3.8-11.6 [facility] Leukocytes [#/volume] in Blo od by Automated countOrdered By: Quita Hall on 03-28-2024 WBC (Bld) [#/Vol] 6.4 10*3/uL Normal 3.8-11.6 [facility] Comment on above: Performed By: #### C BC, CMP #### [place] [address] [place] Lymphocytes [#/volume] in Bl ood by Automated countOrdered By: Quita Hall on 03-28-2024 Lymphocytes (Bld) [#/Vol] 2.0 10*3/uL Normal 1.00-4.8 [facility] Comment on above: Performed By: #### C BC, CMP #### [place] [address] [place] Lymphocytes/100 leukocytes i n Blood by Automated countOrdered By: Quita Hall on 03-28-2024 Lymphocytes/100 WBC (Bld) 31.5 % Normal . [facility] Comment on above: Performed By: #### C BC, CMP #### [place] [address] [place] MCH [Entitic mass] by Automa deya countOrdered By: Quita Hall on 03-28-2024 MCH (RBC) [Entitic mass] 31.7 pg Normal 24.7-34.3 [facility] Comment on above: Performed By: #### C BC, CMP #### [facility] [address] MCHC Auto (RBC) [Mass/Vol]Or dered By: Quita Hall on 03-28-2024 MCHC (RBC) [Mass/Vol] 33.9 g/dL 32.0-35.[address] [facility] MCV [Entitic volume] by Auto mated countOrdered By: Quita Hall on 03-28-2024 MCV (RBC) [Entitic vol] 93.6 fL Normal 80-100 [facility] Comment on above: Performed By: #### C BC, CMP #### [facility] [address] [place] [address] Neutrophils [#/volume] in Bl ood by Automated countOrdered By: Quita Hall on 03-28-2024 Neutrophils (Bld) [#/Vol] 3.6 10*3/uL Normal 1.8-7.7 [facility] Comment on above: Performed By: #### C BC, CMP #### [facility] [address] [place] [address] No Panel InformationOrdered By: Quita Hall on 03-28-2024 Estimated GFR (CKD-EPI) 48.966 mL/Min [facility] Creatinine Clearance (Chem N/A [facility] Nucleated erythrocytes [Pres ence] in Blood by Automated countOrdered By: Quita Hall on 03-28-2024 Nucleated RBC Auto Ql (Bld) 0.2 /100{WBC} 0-0.5 [facility] Platelet mean volume [Entiti c volume] in Blood by Automated countOrdered By: Quita Hall on 03-28-2024 Platelet mean volume (Bld) [Entitic vol] 8.5 fL Normal 6.3-10.7 [facility] Comment on above: Performed By: #### C BC, CMP #### [facility] [address] [place] [address] Platelets [#/volume] in Bloo d by Automated countOrdered By: Quita Hall on 03-28-2024 Platelets (Bld) [#/Vol] 219 10*3/uL Normal 150-450 [facility] Comment on above: Performed By: #### C BC, CMP #### [address] Potassium [Moles/volume] in Serum or PlasmaOrdered By: Quita Hall on 03-28-2024 Potassium [Moles/Vol] 4.3 mmol/L Normal 3.5-5.[address] [facility] Comment on above: Performed By: #### C BC, CMP #### [address] Protein [Mass/volume] in Ser um or PlasmaOrdered By: Quita Hall on 03-28-2024 Protein [Mass/Vol] 6.3 g/dL Low 6.4-8.9 [facility] Comment on above: Performed By: #### C BC, CMP #### [address] Serum globulin measurement b y calculation (mass/volume)Ordered By: Quita Hall on 03-28-2024 Globulin (S) [Mass/Vol] 2.1 g/dL [facility] Comment on above: Performed By: #### C BC, CMP #### [address] Serum or plasma albumin/glob ulin mass ratioOrdered By: Quita Hall on 03-28-2024 Albumin/Globulin [Mass ratio] 2.0 {ratio} [facility] Comment on above: Performed By: #### C BC, CMP #### [address] Serum or plasma anion gap de terminationOrdered By: Quita Hall on 03-28-2024 Anion gap [Moles/Vol] 7.7 mmol/L Normal 6.0-15.[address] [facility] Comment on above: Performed By: #### C BC, CMP #### [address] Sodium [Moles/volume] in Ser um or PlasmaOrdered By: Quita Hall on 03-28-2024 Sodium [Moles/Vol] 142 mmol/L Normal 136-145 [facility] Comment on above: Performed By: #### C BC, CMP #### [facility] [address] Urea nitrogen [Mass/volume] in Serum or PlasmaOrdered By: Quita Hall on 03-28-2024 Urea nitrogen [Mass/Vol] 28 mg/dL High 7-25 [facility] Comment on above: Performed By: #### C BC, CMP #### [place] [address] [place] ISTAT XRay CREon 03-05-2024 ISTAT GFR 52.728 Normal [facility] Comment on above: Result Comment: PERF ORMED BY: [place] [id number] PATHOLOGIST DEPUTY GENERAL COUNSEL KALPANA BYRNE M.D. Performed By: #### I SCRE #### [address] MR lumbar spine wo/w conon 0 03-05-2024 MR lumbar spine wo/w con [facility] [address] [place] [address] MRI Report Signed Patient: Elicia Dent MR#: [id number] 8 : 1950 Acct:[id number] Age/Sex: 73 / F ADM Date: 03/05/24 Loc: MR Room: Type: [facility] Attending Dr: Eriberto Davis MD Copies to: Eriberto Davis MD Ordering Provider: Eriberto Davis MD Date of Service: 03/05/24 MR/MR lumbar spine wo/w con: M48.061 - Spinal stenosis, lumbar region without neurogen... MR lumbar spine wo/w con 03/05/2024 8:40 AM SIGNS AND SYMPTOMS: Low back pain radiating into lower extremities PROTOCOL: Multiplanar multisequence MR images of the lumbar spine were obtained with and without IV contrast CONTRAST: 14 mL of intravenous ProHance COMPARISON: 11/30/2020 FINDINGS: The bones of the lumbar spine are in anatomic alignment. There is preservation of vertebral body heights. There is posterior and intervertebral fusion from L2 through L5. This is unchanged. Modic type I endplate edema is noted at L1-L2. The conus terminates at the superior endplate of the L1 vertebral body level. No epidural or paraspinous fluid collection is appreciated. Uncomplicated colonic diverticula are noted. There is no abnormal post contrast-enhancement. At T12-L1: There is a normal disc, central canal, and neural foramen. At L1-L2: There is a normal disc, central canal, and neural foramen. At L2-L3: There is intervertebral fusion. No significant stenosis. At L3-L4: There is intervertebral fusion. There is mild bilateral neural foraminal stenosis secondary to facet hypertrophy. At L4-L5: There is intervertebral fusion with facet hypertrophy. There is moderate bilateral neural foraminal stenosis. At L5-S1: There is a broad-based disc bulge with facet hypertrophy. There is mild spinal canal narrowing with mild bilateral neural foraminal narrowing. MR/MR lumbar spine wo/w con IMPRESSION: Unchanged fusion L2-L5. No significant spinal canal or neural foraminal narrowing outside of the fused levels. No abnormal postcontrast enhancement. Impression dictated by: Jonathan Patiño M.D.03/05/2024 5:03 PM Dictation Location: [place] [address] Transcribed By: [facility] 03/05/24 1703 Dictated By: Jonathan Patiño II, MD 03/05/24 0258 Signed By: 03/05/24 170 Normal [facility] No Panel InformationOrdered By: Eriberto Davis on 03-05-2024 Bedside Estimated GFR (eGFR) 52.728 [facility] Whole blood creatinine measu rementOrdered By: Eriberto Davis on 03-05-2024 Creatinine [Mass/Vol] 1.1 mg/dL Normal 0.6-1.[address] [facility] Comment on above: ER/ESD physician is notified/shown all ISTAT results.Critical values may be confirmed by laboratory testing ifdeemed necessary by ER attending doctor. Result Comment: ER/E SD physician is notified/shown all ISTAT results. Critical values may be confirmed by laboratory testing if deemed necessary by ER attending doctor. Performed By: #### I SCRE #### [facility] [address] XR hip RT min 2V(w/wo pelvis )*on 02-11-2024 XR hip RT min 2V(w/wo pelvis)* [facility] [address] [place] [id number] XRay Report Signed Patient: Elicia Dent MR#: [id number] 8 : 1950 Acct:[id number] Age/Sex: 73 / F ADM Date: 02/11/24 Loc: [facility] [place] Room: Type: [facility] Attending Dr: Demetrio Devine II, MD Copies to: Demetrio Devine MD Ordering Provider: Demetrio Devine MD Date of Service: 02/11/24 XR/XR hip RT min 2V(w/wo pelvis)*: M25.551 - Pain in right hip RIGHT HIP - 2 views: CLINICAL HISTORY: Right hip pain and groin for months. COMPARISON: Pelvis 05/28/2023 FINDINGS: Bilateral THAs without radiographic complication. No acute bony process. XR/XR hip RT min 2V(w/wo pelvis)* IMPRESSION: NO EVIDENCE OF HARDWARE COMPLICATION.. Impression dictated by: George Bernabe Jr., D.O.02/11/2024 3:36 PM Dictation Location: [place] [address] Transcribed By: [facility] 02/11/24 1536 Dictated By: George Bernabe Jr, DO 02/11/24 1536 Signed By: 02/11/24 1536 Normal [facility] XR lumbar spine 6V w bending on 06-22-2023 XR lumbar spine 6V w bending [facility] [employer] Other XR lumbar spine 6V w bending [facility] [employer] Other XR lumbar spine 6V w bending [address] [facility] Other XR lumbar spine 6[place] [address] [employer] Other XR lumbar spine 6V w bending XRay Report [employer] Other XR lumbar spine 6V w bending Signed [employer] Other XR lumbar spine 6V w bending Patient: Elicia Dent MR#: [id number] [employer] Other XR lumbar spine 6V w bending 8 [employer] Other XR lumbar spine 6V w bending : 1950 Acct:[id number] [employer] Other XR lumbar spine 6V w bending Age/Sex: 72 / F ADM Date: 06/22/23 [employer] Other XR lumbar spine 6V w bending Loc: XD Room: Type: [facility] [employer] Other XR lumbar spine 6V w bending Attending Dr: Farnaz ALMAZAN [employer] Other XR lumbar spine 6V w bending Copies to: THA Ling [employer] Other XR lumbar spine 6V w bending Ordering Provider: THA Ling [employer] Other XR lumbar spine 6V w bending Date of Service: 06/22/23 [employer] Other XR lumbar spine 6V w bending XR/XR lumbar spine 6V w bending: M51.36 [employer] Other XR lumbar spine 6V w bending XR lumbar spine 6V w bending 06/22/2023 11:15 AM [employer] Other XR lumbar spine 6V w bending SIGNS AND SYMPTOMS: Low back pain with pain in the sacrum. Numbness and tingling in lower [employer] Other XR lumbar spine 6V w bending extremities with pain [employer] [facility] Other XR lumbar spine 6V w bending PROTOCOLS: Frontal, lateral, and flexion-extension views of the lumbar spine [employer] Other XR lumbar spine 6V w bending COMPARISON: 11/15/2020 [employer] Other XR lumbar spine 6V w bending FINDINGS: [employer] Other XR lumbar spine 6V w bending There is similar posterior fusion from L2 through L5. Vertebral body heights are preserved. There is [employer] Other XR lumbar spine 6V w bending mild disc height loss at T11-T12 with anterior osteophyte formation. There is no fracture, [employer] Other XR lumbar spine 6V w bending subluxation, or pathologic movement. No hardware complication. There is evidence of prior [employer] Other XR lumbar spine 6V w bending cholecystectomy. The sacrum and sacroiliac joints are normal. [employer] Other XR lumbar spine 6V w bending XR/XR lumbar spine 6V w bending [employer] Other XR lumbar spine 6V w bending IMPRESSION: [employer] Other XR lumbar spine 6V w bending Unchanged posterior fusion L2-L5. [employer] Other XR lumbar spine 6V w bending No pathologic movement on flexion or extension. [employer] Other XR lumbar spine 6V w bending Impression dictated by: Jonathan Patiño M.D.06/22/2023 2:44 PM [employer] Other XR lumbar spine 6V w bending Dictation Location: [place] [address] [employer] Other XR lumbar spine 6V w bending Transcribed By: MADIHA 06/22/23 [facility]5 [employer] Other XR lumbar spine 6V w bending Dictated By: Jonathan Patiño II, MD 06/22/23 1447 [employer] Other XR lumbar spine 6V w bending Signed By: [employer] Other XR lumbar spine 6V w bending 06/22/23 1447 [employer] Other Physician Orderon 02-18-2023 Physician Order [id number]:1 27 [facility] Postoperative Documentson Postoperative Documents [id number]:12 7 Normal [facility] Operative Reporton Operative Report SURGERY DATE: 2022 PREOPERATIVE DIAGNOSIS: Left internal nasal lesion POSTOPERATIVE DIAGNOSIS: Left internal nasal lesion OPERATION: Cautery ablation of left nasal lesion ANESTHESIA: General endotracheal COMPLICATIONS: None FINDINGS: Small hemangioma of the left anterior inferior turbinate INDICATIONS: This 72-year-old woman presented with recurrent epistaxis. She had previously had a small hemangioma cauterized with silver nitrate and now had recurrence of her hemangioma. She was brought to the Operating Room for more definitive treatment. PROCEDURE: The patient identified in the Holding Area and taken back to the Operating Room where she was placed in a supine position. After induction of general endotracheal anesthesia, the left nose was approached with a nasal endoscope. Under endoscopic guidance, her hemangioma in the left anterior inferior turbinate was cauterized completely. The examination of the remainder of the nose revealed no other significant abnormalities. The antibiotic ointment was then placed in the left nose. The patient was then awakened and taken to the Recovery Room in good condition. Cathie Gomez Jr., M.D. murray Dictated: 09/25/2022 [id number] Transcribed: 09/25/2022 [facility] Comment on above: Result Comment: Elec tronically Signed By: Patricia YANG, Cathie Martines\.br\Date and Time Signed: 10/02/22 09:24 EDT Coding Summary.on 10-01-2022 Coding Summary. CD:[id number] Gh0bW w+PGhlYWQ+XQ7UODIcL30srHG ieT2mT3AQGHnGKyztHYISJDhM TnGowzWmRD9rjMUkYIWe IC8+WN1sRGJfDwnomTMhl0A4s XN3W57gkq5jWKhmsTI6UMQiIv Xlubpoj0farQu1GHnsQmxeWjG t JGGarG60SMO3fM18Gg04lAQls WCgo0xoqCa2XfHbYTEeFXX8eH htFVjsv0CtTZAuB75qcVMug9C 6 KYCqdWnzrMZiYnGanSY6iP3bX Dswjkkqs6kogzefFqz2ii85bX Chm9D4tQV0U4HzkiE2XZLssWV g MdfotIERoN3wdqzrb6ufpjylH fLqGSPtIXv7ZHf5FCWmnZdhUa JjPH58LDZ8GALtosOjT6MnRYD s pIiiXuZ3v8Z2Ru2AI7PILnsuM 1VNTUFSWTwvdGQ+AV27qx77G2 MqGzskFjm4JYSuUQZ3eHP4nD1 n OHLnMBlak9W2wNG8L6JkjnNvq n5xs5ajLWNjDXgwM57gcHVwx1 X7NQZyaIN8WWZztQgeTyRcjY9 3 Oyc+KDDmwNhjw3KaAcezs4dye 3fzfFh6LytoAUExovLdcLpgTQ H4k0FhXt0bRYTmmOX0mPJ7dR9 i EqAjEiV2NCbkJ686JnWblMIbY ogxB13nY5YanYT+VTPhVys7TA PuwUryQV2zA6XrZHSkxhisqVE m vYjhSH3jWLNhiarwISHyiF7cW CEbQ3k8IgWzCdL3EYhoT2QeHZ FdomdxMc23qH7sDlTmNuC2WVa u N7TftwQ6INFvlBJnIBibYTU2B 46wo5P7EMRgIEXpMAT6dDS9qZ 1hbGlnbjogbGVmdDsgdmVydGl j GEqvVCcdL324LWZgyBdlOlDiZ GluZyBEYXRlOiAgMDMvMjIvMj AyMzwvdGQ+XXLaNJT2nGumEXA n qFTzZKwcYp3enKtntMrqDC0mT JWunygfPZRplJ8oALDipXVrrH ofEU1pTTUxubacs444KiZjJUQ 0 CBCmzMLuD8DiwP7rZaAoJQNkK FDeO3VelWMjORqxX923MVqkCo D4YXSeaeKuZ0ClIJAnbLvfRmP 0 w1T2Bv4Yy2XshjlsS3IjgLMkB dHuVvpmTMu2A8NaAccmeNU+PC 41IEObZY64VDi5HNC2sAezHBc i XEGmC1ZueZ6tHuNjYOCvUREiB yc+PHRhYmxlIHdpZHRoPScxMD ZlEcJmbGvpAW4bUg1vILVdMHX v uJyrqTNhDlZnr9dyREGxKZilP T6otDnvT0ZjyBG5ETGle8r5Xw 87M79sP9AzsHX+JOYuvOO5rMH 0 jM2oKkSpNpQ5RLzfN509JhUxo KRxVwccu7awi0vheJn0ElG5DO PxunSkfYsiKLC7f9YqFv29T45 s IHdpZHRoPSIxNSUiIHZhbGlnb c9zpB2hRe2+FDOmePT9tIN4mI 3lJpWxRhM2VYxuJ346LeYmwFH v Ocshv7wto9vqdUo9MeRfAFQyu uQfiQllZJI9y3IqAz57R0BfdY zev5MlQmr7kg46hUKwe3E1jOX 9 E5UvGWLrfhcnwTBrcRxtYI1tH JUzypmsNNPpsF8hLEVkK4x5Ec BkVlM1EFryV6TblqE3MLRsxQX g ZTQozRPTpK3cfetth6oducqpI cUeXZHwEMc4HGv2WJBvzDxpKw FrUOU7BiT8DUH3eKDudO8jzVx n ovdrdU5nEwo+DYI2jEWcoKDKG M6gEcwkuGE+KNWaBRE9lDkzBO crWHTgvG7yOCViX7u5VzWpQtB 1 SKxoI7QrlnV2ZIHyqPXiZRCom GUIuR8hhpkqr1optcohCcJuJR UiQIl4NQe8KFMiwQnxMbPnEND 0 YzL6NGR2wBWcjR3tcOjtomsky G9wOyc+NittiCbmKMQ5GIy0W3 KdHpe7NHJjeHsiUX2piMNjPLj u Bj7ehOeheSfyLM1bERYjdsqtz 496LvNgm0muIBRwmMFsSBxfTN R3W45af5T7UFTeNCKiYKW6wDO 4 eH5baWsrefrseWFoyFrdpcHev AzyNSkrSJjdT733VHTzpZimEd RbPBg8E1GhAad3QENkvJtnYL9 n jAArXExvDw6zvBlcoArqNC8rX WXkfcuyb900MfJyx0jbJUMvfW AqYPvzFSS2M14sr6P3MXFdSLR w GIU5iZK4lN2ivFfrwzzurBLrb MkjcsHfvNgfDPfrPWifH454CX IafDqiZjFzrDi4P2XgTbh9IQO z oKneIU3ntTRbPFsnMh3rwJdya IfaCH7rKLQotognh816QrNgy3 laLTQxiVYdAYmaNUP8Y02uh1V 6 PYIdZFFyPAJ5eOC1oZ6kmMmye jogbGVmdDsgdmVydGljYWwtYW hbB984WYUztSbdXdHsgZrtsvR g KLrwZEw6R5QtMfxawBE+PC90Y JXmDW00eZNrlPEur6pvzAz8Md ZzLXSeZCG9qMraEQxqz5XsIXU t N02laXHlh3M8EIWqgSdnwVBgO sCgxBL0rN7fILtjcovzx8jasd yaLhbav2gozw29gZ36M96wSQp p KJXjNWOvRFZlUUAurCnnra9qd G9wIi8+HMGzfGM1oMR9dQ9yJI XdTrA2TUxvM624OjDxmYNpYio j x9awa2wegWx5GoG7KOZxjvIdi MyaUBI7k3FlVe73B50cQIuqOG LpNZIfTMRdAKOgmRvkwy5ctV2 w Ii8+ANRzqCX3oWK0iZ4iGvUoN tP3WLjzY396KlBqlNToGcefQ5 4qU8DegWC+TIAsPqu2GJHjkHd s HO4wfHFqNTwlFs3vMNX8WvVsS hEpQKnuP0VvIGGunmghaovymQ R9XDGxWDHvbL69Dh8tsAczXVH w jUPCrO6lwvwhb9azynmfPzRxE ZQeVMd8EFy7XQPyyQqtMlAhYI G6VgK9VHJ6vLLynM5imJywmwn g mU0hI5LbJDIabmsiNe78wD9vC kCfFjM1VXoxEjc+C7UAOrBqYP gYIyKWIC09NB87cLXma4C4dVL 9 D4CbEAEqpoqfrkrjjOX8XMLwG WKauE16mDFfFHxrNz2fc7G0o7 68YVAcACUvjF97Xa5kbNdiGLN w wOVAiS8vqgzyo9ccrbevBhRgI KBdHPu4UVk0ILIzpEcoGqAmRA J2CzZ2QDM7fFYvwL4olXgazkn g aM1dLon+FBDkNmVyNZp9PVnxt GQ+IKHvAYR9gJzdXAmiEBUpnI 9sWKQfQ8g7EbIuHcR4UYrlQ4G h JJNotawjKy88nC1tYvVuVrE8K EyyS9AlpjC5SFErlTEmEYqvBY H4C18ex5C8XCTxVBUnFSZ0eNL 4 xY6szNsetkgsaRJebIqdlhCao InzDSesEXeiR259NERgsQifWo uqERuvDPKnBB62CD23fBOmv7K 5 sRF4S6JgHBPovtslacvzoES3F CGgHRYbsM41nPCoHBxbLa1nc0 L7i482SNZeSEYyqH94At6koZh g HNTziHKJyN6qaxdzi4wlfadxS sZhSXBqQZm7DQo0RCBrpHadUg PxGFR4KyZ3TME0dXHqiQ4gmGq n dlbxiN0iPxd+CvOvOLzyWW54A R91mHDsg9M4vVX1B0XbBBXgyf vzbjznuSN3ASGzKGQxuB24pZX k KMleQs7kl6E5e381EYLpVHPor V77Vf2rsOqoXVWwbODGaU0jfl pit5bazvhrFmXjABXlLGc9LKd 0 EPKqdJxxJtAiBPC1YaY7IGD2p SZqwU5siLwxfriaiH8yZek+T3 H5mJW8vGOdaEazcBY+SX49zm8 8 E7NpCpiuNmy8MZPoXIK8hUJ6p D2jYLAdDAmya1X1wAR1N6Nrqx Apwq2bw4vtGIAkGLznX13wwEX w t6O7YUQokSL1RWJulTxjVjUlk G93Oyc+EAOeiSayp8UdDdsly5 zbz4jemAw0TiSaKQOmepApxHr u KIT6u0KqDq58E54mBPjcGXScH FMoMXLcSSKloFckwg8vzI5jGs 8+PBMniRY1eQY6kN0hUlLeWsC 2 IKktY575OlQpeCOdAzsot2pop 5zwwEx2FcOkLKVtkaGygTheDP W9x5KkSm26Q4NorMlcx9RmRwv 0 re31xRIjw2H6dLR1N6KjUJBdb epmgQGbbXjgMZ9xXAMqjjglEU OkwE9xCPYwV2m9UwSlAqS6SGy u V4VwflN2FNFivFLnHNNrrRDNy Y0qhhsrx0cxsvwtDlTfPFSaLT n1VXw5EPLfjOqyUsGpOQW0UrX 2 LEF1sKAumM8dzMrgqiiovH2nR yc+PFe7o6dubNJwIN6ugWK3LV 13KP23bWSwt4N8vOB4H3CuKMA p rlnbjxkprHT1FZOxTSDwfL07I b4qpBumFk1zVNBfNVF4UUCayP MiL0ArzD8sMlUuAOLhPPTlU9U l yWUpQNiyD891KOtgHcX1IJNpf vOhI2CtADBzyWwaYxV4h4C9Tg 8ZOS93NX23DL13mWSia0A6vAM 9 U7DoTETnouzzoscynJM8FNYzN CZoiB35Ra9eyYkfKm1bLJNoNM L2SJZwyAVeQ3WkgH8pVpZkTGY w BJGqA2GiaYXaTVamU271TBnhQ zJ5AAAztuBjV9KcAOIkdRxmEw Z0q6L7Cd4YGg29LV32KX46eTF g p2V2sNT9J0UuHWWofbqifypag SH9LHWsWFUfnF81Et2mxWcmWy 1pQRWiRLK0KFMkaHWwE6KnuQ8 y MvXaPMUeZMLyQ6EhiJUhCQtlH 084TSzgPxB1ZAFeqyRvK7ZaJZ SjpEkbQyV8n4X8Bv2PIVuvqhz 8 V1KeQwpheSC+KA91QSDpGW61b FDdlWDri3jhbPv7EwMvLIQjBT C8vOyqCHbpb2ZoTTZxO78uxRT w c2U6 (more content not included)... Normal [facility] Coding Summary.on 09-29-2022 Coding Summary. [id number] Gh0bW w+PGhlYWQ+DS7GNPTdT28yjIA dsN6gM2QNZNuYPkljBOWYTJpN NoAuwgGfSG9lzWUkILBb IC8+BZ4fWSRfNolpvJWll2B5s SD5L86ked5vKKgaxRW1XJMlCe Bensseh5vvpGw8PApmFozfXvN t WKZowC07SKK7iG95Rn01mCRgy HTpg0xlvCr7WePgHIMlMZU0rU urMPxzv9WnFNKtK04scEMsm0G 6 AFCksKxluSBwRcYuoLB9dS4kU Evsmaiwo9xpnqjqNcx7na80cR Rzy0Y4qQT3U9QjsbM1LBHoqQC g OudmxTGKsM4fevihg6fydushT uNsKJSdSEg1VVf5DIZraLnvGu LzFQ57GFQ9VXAmfyLjJ0VrEGH s rJrhMhH6r4F6Wo2EI4GQMevnS 1VNTUFSWTwvdGQ+MS02zi65U4 FaKneyGoa1MXFtXEU7yJG7tI3 n OVRxXFsuj6W5cCA3F3AywpBkq u4dk4wqDWCtHVdwZ47crGJmf3 P3VFRdcRT2KVCcnAidBhWkgF6 3 Oyc+TUJfbYyzm7AvRyqnz7sys 7agtMb0KuzaTJLatzFpwKlgXQ F1i1XlRl4iCSOdaRS5tOJ6uB5 i TaWxRiU9AMdaR277VbVvoAXgD yvkZ16yQ0IqtNF+PFQuUmo3TD AehRasBK5dH7JvHEVzkagjcRP m pKygNK1lSNEfmtojBCFelZ9bH YIrI6o4FnHdLeA2FShjH2FsUO ZqlmplPs63oI9uOiJnDwA1GKb u O1BaotF9RDCsfNIbRLnjURA4M 73ta8Q8MLIuNDHxLUK8qXE3dM 1hbGlnbjogbGVmdDsgdmVydGl j PSsfTUokZ716QLQucUvfIlKcQ GluZyBEYXRlOiAgMDMvMjAvMj AyMzwvdGQ+XOFaEPZ5cBoeLCS n rFUiFVzeNz2zaIyeaQiyDM7bM IIskqpeTYOndO2eXWUqlYWutX stOI5cSECtorwup808IvMtPWK 0 JSCkcTToT8HlhB0dSpGvCPSfE SKwW3WwqRCbMEixI135KJhmLq X7EVMkqzYjE9MbVYMcfBszYtA 0 c8Y7Nm4Ub5ClxyqeP0ChfWLjS jRiQlngSOe5U3BjOalauHE+PC 83UEQgBN51SLg5RJO9xXjcVNa i WKOlT4DrpZ1zFdDcMZXtQLFpB yc+PHRhYmxlIHdpZHRoPScxMD QcKaFbqLipCW6pMm9rAITdQIQ v nVrfjLKwEhHbn4npQQUlWXaqY E3zmZgtL1BooAY4IMPkf5m5Xp 97E59bN2ItjJG+CBQbwSL8kNK 0 pK0nSqBfUhW4LEwvH694NlJuo SAfNfzmv3mai6ctzHk9JwM0GP AgegHvuHvaZLT2r6JyWl89G39 s IHdpZHRoPSIxNSUiIHZhbGlnb i3fsD0xBa8+WJPqiKN8lLD9iJ 5uKlZhAzZ7PKtvU925AhGzwWB v Ababu0xgi5xmmKy0EzJgDVBki pLseNipVVA7y3LdPz93T3DanO omy6SgCrk5fy70fFSyl8U3qZW 9 L3VuLFYegiuzpWKryLcnIR4xX IIucxifLCNhkR6rBQBzC8u6Cx FwLyE7RNuvP4SsnbN8HIOqhSX g HCNgsHZKcU9xirldu8bkbmwqQ yGgTYDiQCu6MDz0COLptKiiMa RdLJK0AhE1SEH4gRQzfT2fuEd n ygiefJ6aElj+HGK8zYUuhDGYL T5uSwxshZI+YXFuROF3rIyvCX hwGANgkT0aDKZxG8r7UfMyBtM 1 AJayA6NewdO5ILAwjJGeNCHot SNRxX6ghozjb0mxalfrQaJaRR IsFGk2GOr3QWPvxPykVuXxNOC 0 FjY1WKI6yPYoeE1tiYliuxkvt G9wOyc+PieteRzbTPB1XWg9P4 LoLpv4MMUfdHxlIH1kzPLpGRm u Sy4ogXcqoAkiKE9lMCBsdedez 078NfBau6huZNUerZCsINojKU P7N26yb9T7ZKMyFOAzTPA7gJY 4 sO6txOlqhpcjhFDqjCqwgfGrx TrjBHrqULryT604EVQjwOpeDx ZnVKk5H4JgKer5UXZvwLqqLQ9 n tLHtMQbuVj1bvNikmBkmWY6mL JRvmsyku451NmCtd1wcAIQhoD IrQQpxHXN3Q35ub4C4BYOvWTQ w USW0cUP7sQ1caDslhpqdwADub DynjfOdxLznWEsaGSvdO751MQ NkeMknFoBieHt0S0QzRtz0WXI z iYgfQF2nqCRcSWrfMp2wyOths FkvOF1mDGAgzkrsm585ZjHzm1 zdIUQiaQMyJUzpVDO9O62sv0E 6 KUJfCJPfYFV2lLK3cK9ypUizk jogbGVmdDsgdmVydGljYWwtYW emB256CTGqnMbdRkIwaMtsjqP g JLrlDMz9A0YmElxauIH+PC90Y YCcQS41qZOnaRRow5iucZd3Vm NzXEMgLXH3uXmwIJzhv2ZdWVK t J31fvMDkz3Y9DFVmgJemjUJoW vDorRF5hY2mMTbkedydp9will nwFqrxk2gjir54cI40C03bWVo p ULLdVVKfTPMvVDExkGquln3ho G9wIi8+LMSlwSO1vDD0zH8pRM ZaTsJ8BSyrO608VpNydGLkOmf j r5yng0srgHx2KtK1QPNhllLjx PkcSWR0x6ThLu73D19xSSeaOK TtXAVdHSJbJINhzImczd3fjR2 w Ii8+UVFlvSH2hWO2dI3aWuUvB mE6EHmzX351HjCxaSMiNsuwB0 6iT9KtwNJ+FTJaMof8TUBmkYy s WO0yyMGmJRmjOa8kWQV9OhBoO vEsPOmvI3SxYHYzpdlmwlwvuR X6TALgZQAlcJ39St1hcJudQRZ w gUZNgF0yymkbb7qgpzskRfLnG YXyDLn0ITf6MRZjxNcbYsSbGK S3TaD4XOF9kRIfwX9xsOwxyng g pY8nN0RhCEQrfxzeOu10mZ1aZ xNoIzS6CVyeGpd+X4HDEvKnXW tZOxCINR04FW22lKWuc6J5xXA 9 S0AvDGXgyhtuuobpzJI2JSOwL ZRusH24rDTvFCnuDt7nb6L7l5 09PFNzGTJjwP54Dm0djVxyIUC w uJZWiO2xsghxg9dqdxufApScX LJtJVh9GGh7GEXzqLrvEfCdXP L8PbP9PVI9hLBstQ0ndVgsldx g rO3dTgz+MWWrOgMeZMk0LXolt GQ+SUMpHEE9sNthWXwqYPSydW 3uYGTtH2b5RvDyVqN4CYxjX5X h CEVibrdwYw49fP7nXjKcIgF4P SdmH4AwlsS9OEZgcCGyBBpdED D4K13aj9S3EWZvZYPwAOF7cXJ 4 xN4oiKpigruwoVJlkKgmpzQfi MydBNciQBjyX437QKYroHtpQb gjDGecNRMkFO92HK02rOTbc4G 5 vLQ1G0VmSXUgyohnjyydnUU4S KLuWBOalO18kKZkEEilWc1qs8 O7k106VAQmRYLsfM57No6gaPy g AFNogVADgW7vsuzpp2nacwdbV zNrMGKkQTe0JJd2KJActWfvYi PaFKD1LmB8KWM9xJFtiQ0csMx n qejxzD4lQqt+DxAzSHomAZ26U U96dLBli0L1cOY3F1RkAIQpcw rddtdghWX4TLMyWGOnnF72yZE k YFzwCx9bl1Q9y996JWLpDBXcl Z35Vx4mrVvlRXBvaOHQlW7ebk yse1ygdfilLkYhGKJqGEe8RRi 0 KLVjwQyjCmDhZSG8EkP2YLD1i PObrC8kbNzitsxpaX3yWes+QW 0cnXqjrN3wgT0RTI6sROUmlAK T uAZhPKN4ND57KY90Y4HjTqknd GFibGU+PHRhYmxlIHdpZHRoPS tkFYOaTtSwhEhiDA7aMq9nCIJ y QCZvqRcnvQLxAbSno8msYOFwM QiaYT9koHjbW7DaiER4DLSro7 n7Ey73A09hT0SuwUG+PGNvbCB 3 bFI9bH7oGeWbIjE2KAfeP065N bTolYCmQzgay8ifc1kowAt9Ao FmEIGxrwZehMmhJHO9u2XtQi4 8 H44rRLqsMYIlMHBsHVTyLTBww Awwjb2ofA1rYy2+HRFjkIA6uO X8tV4zVhQkUkW6UZcaD776EfL v sRBdWejoK12lJ5SoeXY+PHRyP ai8LDBkoSrlYG5jaHZjGPfiYy 9nAYK5ZyGnGnGwZFixW1IqWLI p ifxoatnxcVY4UOUxGIMiyO66C m9ehLklIy9cQQDcYRR9ZFRqiZ MkP9KktT2wKxXbRUUkMLXwL5P l jMJdERhlH216CAwsLyJ7NUBgr pAsM1FePVLbjTwfPuS4w9R0Wb 6HjVherEEpPG4nEcYmYCv8H0Q k Qjl2VXMudRmvDM5jqBUzYNohR o9beGtqoOpgTR7nTKEohkcni8 23ZaAqq5xjWKQotCAjUWqsYJR 7 A16fp5Q1PHIlLMYaZDX4vGC3v G0dmHxaqvlnaDCdqNjxoeGcfU huSKuaRRreQ191CAZsuVrnSoX J Jim7H7FlUoq3FAQcjIvbPL6wc QZiACfsEf8keAdqfEvuCK3iOZ Rihymwn774YeSbi0aaKXIsuQD g UQfxKMH5X34qs9H0IRFhWKFmO FO4qVB7nO9uuXagjnsgfQGotM jjjbXraFruAWzzHTtoJ415ROR v kIiqMj6SMkn2Y2EaSbd0AKSgj FhrQE8fnFUuXHycTf0lzBnvkZ pdSU3wVXJyawqpm074BxCfx8k k TFNogASeZEkmDQM1R41yy2W1K AMxEBSiSGG9gJX6jC8idElaai ogbGVmdDsgdmVydGljYWwtYWx p B993RFUdlNhaVhWqbGYlOxdbh GQ+GK94gp92J3NoTldmYin1TI UyLAC3jZO3nM7nDOOnRPxtn2H 5 bGU9 (more content not included)... Normal [facility] IntraOperative Documentson 0 09-29-2022 IntraOperative Documents [id number]#1.00CD:1 27 [facility] Consent for Anesthesiaon Consent for Anesthesia [id number]#1.00CD:127 [facility] Discharge Instructionson Discharge Instructions [id number]#1.00CD:127 [facility] IntraOperative Documentson 0 09-26-2022 IntraOperative Documents [id number]#1.00CD:127 [facility] Main OR Intraoperative Recor don 09-26-2022 Main OR Intraoperative Record IntraOp Document Type FT Summary Primary Physician: Cathie Gomez MD Finalized Date/Time: 09/26/22 12:59:32 Pt. Name: ELICIA DENT/Sex: 1950 Female Med Rec #: [id number] Physician: Cathie Gomez MD Financial #: [id number] Pt. Type: A Room/Bed: [facility]09/10 Admit/Disch: 09/25/22 08:47:29 - 09/25/22 13:25:00 Institution: Case Times FT Entry 1 Patient Times In Room 09/25/22 11:06:00 Out Room 09/25/22 11:38:00 Procedure Times Start 09/25/22 11:18:00 Stop 09/25/22 11:24:00 Anesthesia Times Start 09/25/22 11:06:00 Stop 09/25/22 11:38:00 Last Modified By: Javad Guzmán 09/25/22 11:38:51 General Comments: 09/26/22 Chart opened to review and send charges [facility] CSFA Case Attendance FT Entry 1 Entry 2 Entry 3 Case Attendee Christine SANTORO, Patricia YANG, Cathie Mai RN, Marianne Castano Role Performed TOOL RENTAL TECHNICIAN Surgeon - Primary Scrip Clerk - Primary Time In 09/25/22 11:06:00 09/25/22 11:06:00 09/25/22 11:06:00 Time Out 09/25/22 11:38:00 09/25/22 11:38:00 09/25/22 11:38:00 Procedure NASAL ENDOSCOPY(Left), NASAL ENDOSCOPY(Left), NASAL ENDOSCOPY(Left), NASAL NASAL NASAL CAUTERIZATION(Left) CAUTERIZATION(Left) CAUTERIZATION(Left) Comments DR CORTES SWENSON Last Modified By: Fiona De Souza CST, Terry T Sweene, Terry T 09/26/22 12:56:29 09/25/22 11:38:55 09/25/22 11:38:55 Entry 4 Entry 5 Case Attendee Javad Guzmán Jessica D Role Performed Staff - Other Scrub - Primary Time In 09/25/22 11:06:00 09/25/22 11:06:00 Time Out 09/25/22 11:38:00 09/25/22 11:38:00 Procedure NASAL ENDOSCOPY(Left), NASAL ENDOSCOPY(Left), NASAL NASAL CAUTERIZATION(Left) CAUTERIZATION(Left) Comments 2ND HALF SECTION IRONER Last Modified By: Javad Guzmán Terry T 09/25/22 11:38:55 09/25/22 11:38:55 Perioperative Protocols FT Pre-Care Text: Implements protective measures prior to operative or invasive procedure, confirms identity before the operative or invasive procedure, verifies operative procedure, surgical site, and laterality Entry 1 Procedure(s) NASAL ENDOSCOPY(Left), Patient Identity Birthday, ID Band NASAL Verified (select at Check, Patient CAUTERIZATION(Left) least 2): Participation Consents / H and P Anesthesia Consent, Operative Site Present Verified HandP, Surgery/Procedure Marking Verified Consent Surgical Site Yes Laterality Verified Yes Verified Procedure Verified Yes Correct Patient Yes Position Verified Availability Equipment Prep Dry n/a Verified (If Applicable) PreOp Antibiotic No Time Out Christine SANTORO, Given Participants Patricia Colvin MD, Sergei Ghosh RN, Arielle Bowser Terry T, Kipp, Jessica D Time Out Complete 09/25/22 11:17:00 Outcomes Met? Yes Last Modified By: Javad Guzmán 09/25/22 11:39:13 Post-Care Text: The patient is free from signs and symptoms of injury caused by extraneous objects General Comments: LEFT CHEEK MARKED. T ARIELLE WILSON. Allergy Information FT Pre-Care Text: Verifies allergies Entry 1 Allergies Reviewed? Yes Allergies Reviewed Self/Patient With Outcomes Met? Yes Last Modified By: Javad Guzmán 09/25/22 11:13:18 Post-Care Text: The patient received appropriate medication(s) safely administered during the perioperative period Surgical Procedures FT Entry 1 Entry 2 Procedure Description Procedure NASAL ENDOSCOPY NASAL CAUTERIZATION Modifiers Left Left Surgeon Description LEFT NASAL ENDOSCOPY LEFT NASAL ENDOSCOPY WITH CAUTERIZATION WITH CAUTERIZATION NASAL LESION ABLASION NASAL LESION ABLASION Primary Procedure Yes No Primary Surgeon Patricia YANG, Cathie Gomez MD, Cathie Martines Start 09/25/22 11:18:00 09/25/22 11:18:00 Stop 09/25/22 11:24:00 09/25/22 11:24:00 Anesthesia Type General General Surgical Service ENT ENT Wound Class 2 - Clean-Contaminated 2 - Clean-Contaminated Last Modified By: Javad Guzmán Terry T 09/25/22 11:39:16 09/25/22 11:39:16 General Case Data FT Pre-Care Text: Classifies surgical wound, implements aseptic technique, initiates traffic control Entry 1 Case Information OR OR 2 FT Case Level Level 3 Wound Class 2 - Clean-Contaminated Specialty ENT ASA Class 3 Preop Diagnosis EPISTAXIS Postop Same As Preop Yes Postop Diagnosis EPISTAXIS Outcomes Met? Yes Last Modified By: Javad Guzmán 09/25/22 11:13:52 Post-Care Text: The patient is free from signs and symptoms of infection Skin Assessment (Pre Procedure) FT Pre-Care Text: Implements protective measures to prevent skin/ tissue injury due to thermal or mechanical sources Evaluates for signs and symptoms of physical injury to skin and tissue Entry 1 Skin Integrity Intact, [place], Warm, and Skin Abnormality No Dry Outcomes Met? Yes Last Modified By: Javad Guzmán 09/25/22 11:14:01 Post-Care Text: The patient is free from signs and symptoms of injury caused by extraneous objects Patient Positioning FT Pre-Care T (more content not included)... Normal [facility] Preoperative Documentson Preoperative Documents [id number]#[id number]:127 Normal [facility] Preoperative Documents [id number]#[id number]:127 Normal [facility] Progress Note-Physicianon Progress Note-Physician Patient: ELICIA DENT Age: 72 years Sex: Female : 1950 Associated Diagnoses: None Author: Pavan Kolb Jr, DO Postoperative Information Postoperative disposition: Postoperative disposition: To PACU. Optimetrix number: Optimetrix number [id number]. Anesthetic utilized: General. Health Status Allergies: Allergic Reactions (Selected) Severity Not Documented Darvocet-N 100- Hallucination. Indocin- Hallucination. Lexapro- Unknown. Nucynta- Hallucination. Physical Examination Vital Signs 09/25/2022 13:11 EDT Temperature Temporal Artery 36.6 DegC Heart Rate Monitored 62 bpm Respiratory Rate 15 br/min Systolic Blood Pressure 143 mmHg HI Diastolic Blood Pressure 76 mmHg Mean Arterial Pressure, Cuff 98 mmHg SpO2 98 % 09/25/2022 12:10 EDT Temperature Temporal Artery 36.5 DegC Heart Rate Monitored 64 bpm Respiratory Rate 16 br/min Systolic Blood Pressure 157 mmHg HI Diastolic Blood Pressure 73 mmHg Mean Arterial Pressure, Cuff 101 mmHg SpO2 97 % 09/25/2022 12:05 EDT Temperature Temporal Artery 36.4 DegC Heart Rate Monitored 62 bpm Respiratory Rate Monitored 12 br/min Systolic Blood Pressure 161 mmHg HI Diastolic Blood Pressure 70 mmHg Blood Pressure Location Left arm Mean Arterial Pressure, Cuff 100 mmHg SpO2 98 % Pain Assessment: Controlled. General: Awake, Alert, Appropriate. Respiratory: Adequate air exchange. Cardiovascular: Stable, Normal peripheral perfusion. Neurological: Normal sensory function, Normal motor function. Assessment Anesthetic outcome No anesthetic complications noted. Adequate pain relief. able to void without difficulty, able to ambulate with assist, tolerating PO intake, no N/V. Review / Management Condition: Stable. Plan Transfer/Discharge: Transfer/Discharge Discharge when meets criteria ( To home ). Normal [facility] Comment on above: Result Comment: Elec tronically Signed By: Pavan Kolb Jr, DO\.br\Date and Time Signed: 09/26/22 14:14 EDT Progress Note-Physician Patient: ELICIA DENT Age: 72 years Sex: Female : 1950 Associated Diagnoses: None Author: Pavan Kolb Jr, DO Preoperative Information Time patient last ate or drank:=== (npo 8 hours) Anesthesia history: Patient history: No prior anesthesia problems. Re-evaluation prior to induction: Completed, Initial evaluation reviewed. Review of Systems Respiratory: No shortness of breath. Cardiovascular: No chest pain. Hematology/Lymphatics: No bruising tendency, No bleeding tendency. Health Status Allergies: Allergic Reactions (All) Severity Not Documented Darvocet-N 100- Hallucination. Indocin- Hallucination. Lexapro- Unknown. Nucynta- Hallucination. Current medications: (Selected) Inpatient Medications Ordered Lactated Ringers IV Jeanette 1000 mL 1,000 mL: 1,000 mL, IV, 150 mL/hr, Routine, Start date 09/25/22 9:00:00 EDT, 6.7 hour(s), Total volume (mL): 1,000, 70.4 kg, 1.8, m2 Documented Medications Documented Calcium 600+D oral tablet: 1 tab(s), Oral, BID, Refill(s) 0, Prophylaxis Classic : 1 tab(s), Oral, Daily, Refill(s) 0, Prophylaxis Glucosamine Chondroitin: 3 cap(s), Oral, Daily, Refill(s) 0, Prophylaxis Jantoven 2.5 mg oral tablet: 2.5 mg = 1 tab(s), Oral, Daily, Refills(s) 0, Blood Thinner MiraLax: 17 gm, Oral, Daily, Refill(s) 0, Prophylaxis Vitamin B Complex oral capsule: 1 cap(s), Oral, Daily, Refill(s) 0, Prophylaxis Zinc: 140 mg, Oral, Daily, Refills(s) 0, Prophylaxis aspirin 81 mg Chew Tab: 81 mg = 1 tab(s), Chewed, Daily, Refills(s) 0, Prophylaxis gabapentin 300 mg Cap: 300 mg = 1 cap(s), Oral, TID, Refills(s) 0, Neuropathy magnesium oxide 400 mg Tab: 400 mg = 1 tab(s), Oral, Daily, Refills(s) 0, Prophylaxis omeprazole 40 mg Cap-DR: 40 mg = 1 cap(s), Oral, Daily, Refills(s) 0, Gas spironolactone 25 mg Tab: 25 mg = 1 tab(s), Oral, Daily, Refills(s) 0, High blood pressure Problem list: All Problems Arthritis / SNOMED CT 5387273 / Confirmed Afib / SNOMED CT 85439451 / Confirmed Acid reflux / SNOMED CT 841224650 / Confirmed H/O neuropathy / SNOMED CT 9570705831 / Confirmed HTN (hypertension) / SNOMED CT 7156257839 / Confirmed Histories Past Medical History: No active or resolved past medical history items have been selected or recorded. Family History: No family history items have been selected or recorded. Procedure history: Tonsillectomy (623136553). Dilation and curettage (04400911). Appendectomy (724144059). History of hysterectomy (8910516659). Carpal tunnel release (171761226). Arthroscopy of knee (487078037). Breast reduction (279166522). Cholecystectomy (87831811). THR - Total hip replacement (022722677). THR - Total hip replacement (980704996). Back fusion C 5-6 (022678641). Back fusion L2-5 (427508950). Social History Social & Psychosocial Habits Alcohol 09/22/2022 Risk Assessment: Denies Alcohol Use Substance Abuse 09/22/2022 Risk Assessment: Denies Substance Abuse Tobacco 09/22/2022 Risk Assessment: Denies Tobacco Use . Physical Examination Vital Signs 09/25/2022 9:23 EDT Heart Rate Monitored 71 bpm Systolic Blood Pressure 137 mmHg Diastolic Blood Pressure 74 mmHg Mean Arterial Pressure, Monitered 95 mmHg 09/25/2022 9:23 EDT Respiratory Rate 17 br/min 09/25/2022 9:23 EDT Heart Rate Monitored 58 bpm LOW SpO2 100 % 09/25/2022 9:23 EDT Apical Heart Rate 70 bpm 09/25/2022 9:22 EDT Systolic Blood Pressure 132 mmHg Diastolic Blood Pressure 75 mmHg Mean Arterial Pressure, Monitered 94 mmHg Respiratory: Lungs are clear to auscultation. Cardiovascular: Normal rate, Regular rhythm. Review / Management Results review Interpretation of Outside Results Chest x-ray results Radiology results ECG interpretation Condition Plan [place] [employer] (ASA) physical status classification: Class II. Anesthetic Preoperative Plan Anesthesia: General. . Anesthetic plan, risks, benefits, and alternatives discussed with the patient and/or family. Risks discussed: nausea, vomiting, headache, sore throat, dental injury, serious complications. Patient verbalized understanding. Communication: face to face with (patient 5 minutes, Pt educated on the importance of smoking cessation.). Normal [facility] Comment on above: Result Comment: Elec tronically Signed By: Cortes Marsh DO, Pavan Baumann\.br\Date and Time Signed: 09/26/22 14:14 EDT BUNon 09-25-2022 Urea nitrogen [Mass/Vol] 24 mg/dL High 5-21 [facility] Comment on above: Performed By: #### 2 [id number], [id number], [id number], [id number], [id number] ####[facility] [address] [place] [address] CHEMISTRYOrdered By: SYSTEM SYSTEM on 09-25-2022 Anion gap [Moles/Vol] 11 mmol/L Normal 6 - 16 mEq/L [facility] Remisol Chloride [Moles/Vol] 101 mmol/L Normal 101 - 1 11 mmol/L FT Remisol CO2 [Moles/Vol] 29 mmol/L Normal 21 - 31 mmol/L FT Remisol Creatinine [Mass/Vol] 0.8 mg/dL Normal 0.5 - 1.3 mg/dL [facility] Remisol GFR/1.73 sq M.predicted among blacks MDRD (S/P/Bld) [Vol rate/Area] mL/min/1.73 m2 Normal >=59mL/min /1.73 m2 [facility] Chem S GFR/1.73 sq M.predicted among non-blacks MDRD (S/P/Bld) [Vol rate/Area] mL/min/1.73 m2 Normal >=59mL/min /1.73 m2 [facility] Chem S Glucose post fast [Mass/Vol] 96 mg/dL Normal 55 - 99 mg/dL [facility] Remisol Potassium [Moles/Vol] 4.2 mmol/L Normal 3.5 - 5.3 mmol/L [facility] Remisol Sodium [Moles/Vol] 137 mmol/L Normal 135 - 145 mmol/L [facility] Remisol Urea nitrogen [Mass/Vol] 24 mg/dL High 5 - 21 mg/dL [facility] Remisol COAGULATIONOrdered By: Yvrose Crabtree on 09-25-2022 aPTT Coag (PPP) [Time] 29.4 s Normal 25.1 - 36.5 second(s) [facility] Auto Coag INR Coag (PPP) [Relative time] 1.1 {INR} Invalid Interpretation Code [facility] Auto Coag PT Coag (PPP) [Time] 12.0 s Normal 9.4 - 1 2.5 second(s) [facility] Auto Coag Consent for Treatmenton 09-10 Consent for Treatment [id number]:12 7 Normal [facility] Creatinineon 09-25-2022 Creatinine [Mass/Vol] 0.8 mg/dL Normal 0.5-1.3 [facility] Comment on above: Performed By: #### 2 [id number], [id number], 40411087, [id number], [id number] ####[facility] [address] [place] [address] Glu Fastingon 09-25-2022 Glucose [Mass/Vol] 96 mg/dL Normal 55-99 [facility] Comment on above: Performed By: #### 2 368017, [id number], [id number], 6365038, 5843734 ####[facility] [address] [place] [address] H&P Updateon 09-25-2022 H&P Update [id number]:12 7 Normal [facility] Inpatient Patient Summaryon 09-25-2022 Inpatient Patient Summary [address] [address] [facility] Clinical Discharge Instructions PERSON INFORMATION Name: ELICIA DENT PHYSICIANS Admitting Physician: Cathie Gomez MD Attending Physician: Cathie Gomez MD PCP: KYLE ALMENDAREZ MD Discharge Diagnosis: Internal nasal lesion Comment: PATIENT EDUCATION INFORMATION Instructions: Sinus Endoscopy, Care After; Post Op Patient Instructions - FT (CUSTOM) Medication Leaflets: Follow up: With: Address: When: Cathie Gomez Comments: As needed MEDICATION LIST Medications to Continue with No Changes Other Medications ascorbic acid/chondroitin/glucosa/ humza (Glucosamine Chondroitin) 3 Capsules By Mouth every day. aspirin (aspirin 81 mg Chew Tab) 1 Tablets Chewed every day., Thursday and calcium-vitamin D (Calcium 600+D oral tablet) 1 Tablets By Mouth 2 times a day. gabapentin (gabapentin 300 mg Cap) 1 Capsules By Mouth 3 times a day. magnesium oxide (magnesium oxide 400 mg Tab) 1 Tablets By Mouth every day. multivitamin (Vitamin B Complex oral capsule) 1 Capsules By Mouth every day. multivitamin, (Classic ) 1 Tablets By Mouth every day. omeprazole (omeprazole 40 mg Cap-DR) 1 Capsules By Mouth every day. polyethylene glycol 3350 (MiraLax) 17 Gram By Mouth every day. spironolactone (spironolactone 25 mg Tab) 1 Tablets By Mouth every day. warfarin (Jantoven 2.5 mg oral tablet) 1 Tablets By Mouth every day., 2.5 everyday 3.5mg M,W,F zinc sulfate (Zinc) 140 Milligram By Mouth every day. Comment: Normal [facility] Lyteson 09-25-2022 Anion gap [Moles/Vol] 11 mmol/L Normal 6-16 [facility] Comment on above: Performed By: #### 2 093951, 4483229, 99739889, 1571304, 7616370 ####[facility] [address] [place] [address] Chloride [Moles/Vol] 101 mmol/L Normal 101-111 [facility] Comment on above: Performed By: #### 2 051817, 7574656, 79726934, 4806102, 5455949 ####[facility] [address] [place] [address] CO2 [Moles/Vol] 29 mmol/L Normal 21-31 [facility] Comment on above: Performed By: #### 2 929808, 6373345, 12209725, 7278450, 7077957 ####[facility] [address] [place] [address] Potassium [Moles/Vol] 4.2 mmol/L Normal 3.5-5.3 [facility] Comment on above: Performed By: #### 2 448433, 9587921, 25284018, 0352203, 9588363 ####[facility] [address] [place] [address] Sodium [Moles/Vol] 137 mmol/L Normal 135-145 [facility] Comment on above: Performed By: #### 2 254943, 5109277, 84257038, 7015881, 3190289 ####[facility] [address] [place] [address] Main OR PACU I Recordon 09-10 Main OR PACU I Record PACU Phase I Docum ent Type FT Summary Primary Physician: Cathie Gomez MD Finalized Date/Time: 09/25/22 12:15:53 Pt. Name: JAILENEELICIA/Sex: 1950 Female Med Rec #: [id number] Physician: Cathie Gomez MD Financial #: [id number] Pt. Type: A Room/Bed: [facility]3/01 Admit/Disch: 09/25/22 08:47:29 - Institution: Case Times PACU I FT Pre-Care Text: Identifies barriers to communication and implements measures to provide psychological support Develops individualized plan of care, and ensures continuity of care Maintains patient's dignity and privacy, and maintains patient confidentiality Identifies and reports philosophical, cultural, and spiritual beliefs and values Identifies individual values and wishes concerning care Implements aseptic technique, and administers prescribed antibiotic therapy and immunizing agents as ordered Evaluates postoperative tissue perfusion Implements thermoregulation measures, and monitors body temperature Evaluates postoperative respiratory status Evaluates postoperative cardiac status Evaluates postoperative neurological status Assesses pain control, collaborated in initiating patient-controlled analgesia and implements alternative methods of pain control Verifies allergies, administers prescribed medications and solutions, evaluates response to medications Entry 1 In PACU I 09/25/22 11:39:00 Discharge from PACU 09/25/22 12:09:00 I Outcomes Met? Yes Last Modified By: Tatiana Cruz RN 09/25/22 12:15:38 Post-Care Text: The patient demonstrates knowledge of the expected response to the operative or invasive procedure The patient's care is consistent with the individualized perioperative plan of care The patient's right to privacy is maintained The patient's value system, lifestyle, ethnicity, and culture are considered, respected, and incorporated into the perioperative plan of care The patient participates in decisions affecting his or her perioperative plan of care The patient is free from signs and symptoms of infection The patient has wound/tissue perfusion consistent with or improved from baseline levels established preoperatively The patient is at or returning to normothermia at the conclusion of the immediate postoperative period The patient's respiratory function is consistent with or improved from baseline levels established preoperatively The patient's cardiovascular status is consistent with or improved from baseline levels established preoperatively The patient's cardiovascular status is consistent with or improved from baseline levels established preoperatively The patient demonstrates and/or reports adequate pain control throughout the perioperative period The patient received appropriate medication(s), safely administered during the perioperative period Acuity Level PACU I FT Entry 1 Start Time 09/25/22 11:39:00 Stop Time 09/25/22 12:09:00 Acuity Level Acuity Level I Last Modified By: Tatiana Cruz RN 09/25/22 12:15:49 Finalized By: Tatiana Cruz RN Document Signatures Signed By: Tatiana Cruz RN 09/25/22 12:15 Normal [facility] Main OR PACU II Recordon Main OR PACU II Record PACU Phase II Doc ument Type FT Summary Primary Physician: Cathie Gomez MD Finalized Date/Time: 09/25/22 13:40:07 Pt. Name: ELICIA DENT /Sex: 1950 Female Med Rec #: [id number] Physician: Cathie Gomez MD Financial #: [id number] Pt. Type: A Room/Bed: [facility]3 Admit/Disch: 09/25/22 08:47:29 - Institution: Case Times PACU II FT Pre-Care Text: Identifies barriers to communication and implements measures to provide psychological support and determines knowledge level Develops individualized plan of care, and ensures continuity of care Maintains patient's dignity and privacy, and maintains patient confidentiality Identifies and reports philosophical, cultural, and spiritual beliefs and values Identifies individual values and wishes concerning care administers prescribed antibiotic therapy and immunizing agents as ordered, Evaluates postoperative tissue perfusion Implements thermoregulation measures, and monitors body temperature Evaluates postoperative respiratory status Evaluates postoperative cardiac status Evaluates postoperative neurological status Assesses pain control, collaborated in initiating patient-controlled analgesia and implements alternative methods of pain control Verifies allergies, administers prescribed medications and solutions, evaluates response to medications Entry 1 In PACU II 09/25/22 12:10:00 Discharge from PACU 09/25/22 13:25:00 II Outcomes Met? Yes Last Modified By: Milena Neff RN 09/25/22 13:40:01 Post-Care Text: The patient demonstrates knowledge of the expected response to the operative or invasive procedure The patient's care is consistent with the individualized perioperative plan of care The patient's right to privacy is maintained The patient's value system, lifestyle, ethnicity, and culture are considered, respected, and incorporated into the perioperative plan of care The patient participates in decisions affecting his or her perioperative plan of care. The patient is free from signs and symptoms of infection The patient has wound/tissue perfusion consistent with or improved from baseline levels established preoperatively The patient is at or returning to normothermia at the conclusion of the immediate postoperative period The patient's respiratory function is consistent with or improved from baseline levels established preoperatively The patient's cardiovascular status is consistent with or improved from baseline levels established preoperatively The patient's neurological status is consistent with or improved from baseline levels established preoperatively The patient demonstrates and/or reports adequate pain control throughout the perioperative period The patient received appropriate medication(s), safely administered during the perioperative period Finalized By: Milena Neff RN Document Signatures Signed By: Milena Neff RN 09/25/22 13:40 Normal [facility] Monitor Recordon 09-25-2022 Monitor Record [id number]:1 27 Normal [facility] Outpatient Surgery Discharge Instructionon 09-25-2022 Outpatient Surgery Discharge Instruction [place] [id number] Patient Discharge Instructions PERSON INFORMATION Name: ELICIA DENT Date of : 1950 Current Date: 09/25/2022 12:53:19 PHYSICIANS Admitting Physician: Patricia YANG, [facility] Discharge Diagnosis: Internal nasal lesion ELICIA DENT has been given the following list of follow-up instructions, prescriptions, and patient education materials: PATIENT FOLLOW-UP INFORMATION Diet: Regular Discharge Activity: Expect mild pain, Expect minimal amount of drainage and/or bleeding, Activity as tolerated Additional Instructions: Restart coumadin 09/27 Antibiotic ointment to each side of the nose 2 times daily for 2 weeks IF UNABLE TO CONTACT YOUR PHYSICIAN AND YOU FEEL IT IS AN EMERGENCY, GO TO THE NEAREST EMERGENCY ROOM OR CALL 911 IJAILENE LINDA, have received the attached patient education materials/instructions and have verbalized understanding: May we do a follow up call? Yes No I was present when discharge instructions were given Patient Signature ___ Date Clinican/Nurse Signature Date Follow up: With: Address: When: Cathie Gomez Comments: As needed Pharmacy Information: You may receive a survey from [employer] asking you to rate your care experience. Your feedback is important and will help us understand what we do well and how we can improve the quality of care we provide to you, your loved ones and our community. It?s an honor to serve you. Thank you for choosing [facility] HERE ARE THE MEDICATION CHANGES THAT OCCURRED DURING YOUR HOSPITAL STAY Medications to Continue with No Changes Other Medications ascorbic acid/chondroitin/glucosa/ humza (Glucosamine Chondroitin) 3 Capsules By Mouth every day. aspirin (aspirin 81 mg Chew Tab) 1 Tablets Chewed every day., Thursday and calcium-vitamin D (Calcium 600+D oral tablet) 1 Tablets By Mouth 2 times a day. gabapentin (gabapentin 300 mg Cap) 1 Capsules By Mouth 3 times a day. magnesium oxide (magnesium oxide 400 mg Tab) 1 Tablets By Mouth every day. multivitamin (Vitamin B Complex oral capsule) 1 Capsules By Mouth every day. multivitamin, (Classic ) 1 Tablets By Mouth every day. omeprazole (omeprazole 40 mg Cap-DR) 1 Capsules By Mouth every day. polyethylene glycol 3350 (MiraLax) 17 Gram By Mouth every day. spironolactone (spironolactone 25 mg Tab) 1 Tablets By Mouth every day. warfarin (Jantoven 2.5 mg oral tablet) 1 Tablets By Mouth every day., 2.5 everyday 3.5mg M,W,F zinc sulfate (Zinc) 140 Milligram By Mouth every day. PATIENT EDUCATION INFORMATION Instructions: Sinus Endoscopy, Care After This sheet gives you information about how to care for yourself after your procedure. Your health care provider may also give you more specific instructions. If you have problems or questions, contact your health care provider. What can I expect after the procedure? After the procedure, it is common to have: ? Temporary discomfort in the sinus area. ? Minor bleeding. ? Minor irritation or damage to the lining of the nose, mouth, and throat (mucous membranes). Depending on any treatments performed during your procedure, you may also have: ? Sinus discomfort. ? Headache. ? Nasal stuffiness (congestion). ? Nasal drainage. ? Dry nasal passages. Follow these instructions at home: Medicines ? Take or use byrj-zkg-ziwrgat and prescription medicines only as told by your health care provider. ? If you were prescribed an antibiotic medicine, use it as told by your health care provider. Do not stop using the antibiotic even if your condition improves. ? Use nasal sprays and nasal rinses as told by your health care provider. General instructions ? Avoid blowing your nose and sneezing. ? Do not use any products that contain nicotine or tobacco, such as cigarettes and e-cigarettes. If you need help quitting, ask your health care provider. ? Keep your head raised (elevated) for the first few nights after surgery, or as directed by your healthcare provider. This helps to decrease inflammation. ? Return to your normal activities as told by your health care provider. Ask your health care provider what activities are safe for you. ? Keep all follow-up visits as told by your health care provider. This is important. Contact a health care provider if: ? You have pain or discomfort that does not get better with nbsq-poj-cktgihz medicine. ? You have a fever. ? You have more clear fluid or blood coming from your no (more content not included)... Normal [facility] PT & PTTon 09-25-2022 aPTT Coag (PPP) [Time] 29.4 second(s) Normal 25.1-36.5 [facility] Comment on above: Result Comment: Para meter 15 days - 4 weeks 1 - 5 months 6 - 11 months 1 - 5 years 6 - 10 years 11 - 17 years PTT Mean: 35.4 (27.6-45.6) Mean: 33.5 (24.8-40.7) Mean: 32.4 (25.1-40.7) Mean: 31.6 (24.0-39.2) Mean: 31.6 (26.9-38.7) Mean: 31.0 (24.6-38.4) Pediatric Reference ranges were obtained from a study by iraida Guadalupe prepared from 1437 samples obtained at 7 different centers using the same coagulation reagent and instrumentation as [facility]. Currently there are no coagulation studies available worldwide for children to 14 days, and no normal ranges. Heparin therapeutic range (represented by Anti-Factor Xa activity of 0.2 - 0.4 U/mL) corresponds to PTT of 56.6 - 109.0 sec. Performed By: #### 1 [id number] ####[facility] [address] [place] [address] INR Coag (PPP) [Relative time] 1.1 {INR} Invalid Interpretation Code [facility] Comment on above: Result Comment: INR results are specifically intended to assess patients stabilized on long-term Anticoagulation therapy suggested INR?s ?Less Intensive Anticoagulation? 2.0 ? 3.0 Conventional Range 3.0 ? 4.5 Performed By: #### 1 [id number] ####[facility] [address] [place] [address] PT Coag (PPP) [Time] 12.0 second(s) Normal 9.4-12.5 [facility] Comment on above: Result Comment: 15 d ays - 4 weeks 1 - 5 months 6 -11 months 1 ? 5 years 6 ? 10 years 11 -17 years Mean: 11.2 (9.5 ? 12.6) Mean: 11.0 (9.7 ? 12.8) Mean: 11.0 (9.8 ? 13.0) Mean: 11.3 (9.9 ? 13.4) Mean: 11.7 (10.0 ? 14.6) Mean: 11.8 (10.0 - 14.1) Pediatric Reference ranges were obtained from a study by iraida Guadalupe prepared from 1437 samples obtained at 7 different centers using the same coagulation reagent and instrumentation as [facility]. Currently there are no coagulation studies available worldwide for children to 14 days, and no normal ranges. Performed By: #### 1 [id number] ####[facility] [address] [place] [address] Patient Education - Texton 0 09-25-2022 Patient Education - Text ENT Sinus Endoscopy, Care After This sheet gives you information about how to care for yourself after your procedure. Your health care provider may also give you more specific instructions. If you have problems or questions, contact your health care provider. What can I expect after the procedure? After the procedure, it is common to have: ? Temporary discomfort in the sinus area. ? Minor bleeding. ? Minor irritation or damage to the lining of the nose, mouth, and throat (mucous membranes). Depending on any treatments performed during your procedure, you may also have: ? Sinus discomfort. ? Headache. ? Nasal stuffiness (congestion). ? Nasal drainage. ? Dry nasal passages. Follow these instructions at home: Medicines ? Take or use ktcs-dgx-vftpptg and prescription medicines only as told by your health care provider. ? If you were prescribed an antibiotic medicine, use it as told by your health care provider. Do not stop using the antibiotic even if your condition improves. ? Use nasal sprays and nasal rinses as told by your health care provider. General instructions ? Avoid blowing your nose and sneezing. ? Do not use any products that contain nicotine or tobacco, such as cigarettes and e-cigarettes. If you need help quitting, ask your health care provider. ? Keep your head raised (elevated) for the first few nights after surgery, or as directed by your healthcare provider. This helps to decrease inflammation. ? Return to your normal activities as told by your health care provider. Ask your health care provider what activities are safe for you. ? Keep all follow-up visits as told by your health care provider. This is important. Contact a health care provider if: ? You have pain or discomfort that does not get better with hoeb-pux-xjbffvu medicine. ? You have a fever. ? You have more clear fluid or blood coming from your nose. ? You have pus or a bad smell coming from your nose. ? You have nausea and vomiting. Get help right away if: ? You have bleeding from the nose that does not stop. ? You have changes in your vision. ? You cannot stop vomiting. Summary ? After a sinus endoscopy, it is common to have temporary discomfort in the sinus area. ? If you were prescribed an antibiotic medicine, use it as told by your health care provider. Do not stop using the antibiotic even if you start to feel better. ? Do not use any products that contain nicotine or tobacco, such as cigarettes and e-cigarettes. If you need help quitting, ask your health care provider. This information is not intended to replace advice given to you by your health care provider. Make sure you discuss any questions you have with your health care provider. Document Released: 11/13/2017 Document Revised: 10/21/2019 Document Reviewed: 11/13/2017 [employer] Patient Education ? 2019 [employer] Normal [facility] eGFRon 09-25-2022 GFR/1.73 sq M.predicted among blacks MDRD (S/P/Bld) [Vol rate/Area] mL/min/{1.73_m2} Normal >=59 [facility] Comment on above: Order Comment: Order added by Discern Expert. Result Comment: eGFR is race adjusted. AA=. Performed By: #### 2 [id number], [id number], [id number], [id number], [id number] ####[facility] [address] [place] [address] GFR/1.73 sq M.predicted among non-blacks MDRD (S/P/Bld) [Vol rate/Area] mL/min/{1.73_m2} Normal >=59 [facility] Comment on above: Order Comment: Order added by Discern Expert. Result Comment: Electrician Chief dodie kidney disease could be indicated at eGFR's of less than 60 mL/min/1.73m2. Kidney failure is indicated at less than 15 mL/min/1.73m2. Performed By: #### 2 [id number], [id number], [id number], 4785061, [id number] ####[facility] [address] [place] [address] Consent for Procedure/Surger yon 09-23-2022 Consent for Procedure/Surgery [id number]#1.00CD:1 27 Normal [facility] Physician Orderon 09-23-2022 Physician Order [id number]#1.00CD:1 27 Normal [facility] Auto Diffon 09-22-2022 Basophils/100 WBC (Bld) 0.8 % Normal 0.0-2.0 [facility] Comment on above: Order Comment: Order Added by Discern Expert. Performed By: #### 1 [id number], [id number], [id number] ####[address] [address] Basophils/Leukocytes Auto (Bld) [Pure # fraction] 0.1 E9/L Normal 0.0-0.2 [facility] Comment on above: Order Comment: Order Added by Discern Expert. Performed By: #### 1 [id number], 6891695, 1044082 ####[address] [address] Eosinophils/100 WBC (Bld) 1.0 % Normal 0.0-8.0 [facility] Comment on above: Order Comment: Order Added by Discern Expert. Performed By: #### 1 [id number], 2398668, 0538273 ####[address] [address] Eosinophils/Leukocytes Auto (Bld) [Pure # fraction] 0.1 E9/L Normal 0.0-0.5 [facility] Comment on above: Order Comment: Order Added by Discern Expert. Performed By: #### 1 [id number], 9133201, 4516358 ####[address] [address] Lymphocytes/100 WBC (Bld) 29.6 % Normal 14.0-50.0 [facility] Comment on above: Order Comment: Order Added by Discern Expert. Performed By: #### 1 [id number], 1432900, 2336351 ####[facility]rig[facility] [address] [address] Lymphocytes/Leukocytes Auto (Bld) [Pure # fraction] 1.9 E9/L Normal 1.0-4.0 [facility] Comment on above: Order Comment: Order Added by Discern Expert. Performed By: #### 1 [id number], 5834901, 0472652 ####[address] [address] Monocytes/100 WBC (Bld) 7.0 % Normal 4.0-14.0 [facility] Comment on above: Order Comment: Order Added by Discern Expert. Performed By: #### 1 5999427, 0321466, 0636340 ####[address] [address] Monocytes/Leukocytes Auto (Bld) [Pure # fraction] 0.4 E9/L Normal 0.2-1.0 [facility] Comment on above: Order Comment: Order Added by Discern Expert. Performed By: #### 1 [id number], 9547355, 3860762 ####[address] [address] Neutrophils/100 WBC (Bld) 61.6 % Normal 36.0-75.0 [facility] Comment on above: Order Comment: Order Added by Discern Expert. Performed By: #### 1 [id number], 0884849, 8812354 ####[address] [address] Neutrophils/Leukocytes Auto (Bld) [Pure # fraction] 3.9 E9/L Normal 2.0-7.5 [facility] Comment on above: Order Comment: Order Added by Discern Expert. Performed By: #### 1 [id number], 0067612, 1650283 ####[address] [address] CBC w/ Auto Diffon 3 Erythrocyte distribution width (RBC) [Ratio] 13.4 % Normal 10.9-14.2 [facility] Comment on above: Performed By: #### 1 [id number], 9246192, 1477820 ####[address] [address] Hematocrit (Bld) [Volume fraction] 38.8 % Normal 34.0-46.0 [facility] Comment on above: Performed By: #### 1 2846688, 4292599, 3058479 ####[address] [address] Hemoglobin (Bld) [Mass/Vol] 12.5 g/dL Normal 12.0-16.0 [facility] Comment on above: Performed By: #### 1 8869749, 3391434, 7511393 ####[address] [address] MCH (RBC) [Entitic mass] 30.2 pg Normal 27.0-34.0 [facility] Comment on above: Performed By: #### 1 2725624, 8697358, 7514077 ####[address] [address] MCHC (RBC) [Mass/Vol] 32.1 g/dL Normal 31.4-36.0 [facility] Comment on above: Performed By: #### 1 3222235, 5425743, 6240212 ####[address] [address] MCV (RBC) [Entitic vol] 94.0 fL Normal 80.0-100.0 [facility] Comment on above: Performed By: #### 1 3087208, 1978249, 1830897 ####[address] [address] Platelet mean volume (Bld) [Entitic vol] 8.4 fL Normal 6.4-10.8 [facility] Comment on above: Performed By: #### 1 1198357, 2473509, 8492911 ####[address] [address] Platelets (Bld) [#/Vol] 234.0 E9/L Normal 150.0-500. 0 [facility] Comment on above: Performed By: #### 1 7103269, 5524563, 1813324 ####[facility] [address] [place] [address] RBC (Bld) [#/Vol] 4.1 E12/L Low 4.3-5.9 [facility] Comment on above: Performed By: #### 1 6803452, 5842022, 9564650 ####[facility] [address] [place] [address] WBC corrected for nucl RBC Auto (Bld) [#/Vol] 6.3 E9/L Normal 4.0-11.0 [facility] Comment on above: Performed By: #### 1 [id number], 7118211, 8285745 ####[facility] [address] [place] [address] COAGULATIONOrdered By: Chase Polo on 09-22-2022 aPTT Coag (PPP) [Time] 32.2 s Normal 25.1 - 36.5 second(s) [facility] Auto Coag INR Coag (PPP) [Relative time] 1.3 {INR} Invalid Interpretation Code [facility] Auto Coag PT Coag (PPP) [Time] 14.5 s High 9.4 - 1 2.5 second(s) [facility] Auto Coag Consent for Procedure/Surger yon 09-22-2022 Consent for Procedure/Surgery [id number]#1.00CD:1 27 Normal [facility] Consent for Treatmenton 09-10 Consent for Treatment [id number]#1.00CD:12 7 Normal [facility] HEMATOLOGYOrdered By: SYSTEM SYSTEM on 09-22-2022 Basophils/100 WBC (Bld) 0.8 % Normal 0.0 - 2.0 % [facility] HemeAutoSS Basophils/Leukocytes Auto (Bld) [Pure # fraction] 0.1 E9/L Normal 0.0 - 0.2 E9/L [facility] HemeAutoSS Eosinophils/100 WBC (Bld) 1.0 % Normal 0.0 - 8.0 % [facility] HemeAutoSS Eosinophils/Leukocytes Auto (Bld) [Pure # fraction] 0.1 E9/L Normal 0.0 - 0.5 E9/L [facility] HemeAutoSS Lymphocytes/100 WBC (Bld) 29.6 % Normal 14.0 - 50.0 % [facility] HemeAutoSS Lymphocytes/Leukocytes Auto (Bld) [Pure # fraction] 1.9 E9/L Normal 1.0 - 4.0 E9/L [facility] HemeAutoSS Monocytes/100 WBC (Bld) 7.0 % Normal 4.0 - 14.0 % [facility] HemeAutoSS Monocytes/Leukocytes Auto (Bld) [Pure # fraction] 0.4 E9/L Normal 0.2 - 1.0 E9/L [facility] HemeAutoSS Neutrophils/100 WBC (Bld) 61.6 % Normal 36.0 - 75.0 % [facility] HemeAutoSS Neutrophils/Leukocytes Auto (Bld) [Pure # fraction] 3.9 E9/L Normal 2.0 - 7.5 E9/L [facility] HemeAutoSS HEMATOLOGYOrdered By: Altagracia Davis on 09-22-2022 Erythrocyte distribution width (RBC) [Ratio] 13.4 % Normal 10.9 - 14.2 % [facility] HemeAutoSS Hematocrit (Bld) [Volume fraction] 38.8 % Normal 34.0 - 46.0 % [facility] HemeAutoSS Hemoglobin (Bld) [Mass/Vol] 12.5 g/dL Normal 12.0 - 16.0 gm/dL [facility] HemeAutoSS MCH (RBC) [Entitic mass] 30.2 pg Normal 27.0 - 34.0 pg [facility] HemeAutoSS MCHC (RBC) [Mass/Vol] 32.1 g/dL Normal 31.4 - 36.0 gm/dL [facility] HemeAutoSS MCV (RBC) [Entitic vol] 94.0 fL Normal 80.0 - 100.0 fL [facility] HemeAutoSS Platelet mean volume (Bld) [Entitic vol] 8.4 fL Normal 6.4 - 10.8 fL [facility] HemeAutoSS Platelets (Bld) [#/Vol] 234.0 E9/L Normal 150.0 - 500.0 E9/L [facility] HemeAutoSS RBC (Bld) [#/Vol] 4.1 E12/L Low 4.3 - 5.9 E12/L [facility] HemeAutoSS WBC corrected for nucl RBC Auto (Bld) [#/Vol] 6.3 E9/L Normal 4.0 - 11.0 E9/L [facility] HemeAutoSS PT & PTTon 09-22-2022 aPTT Coag (PPP) [Time] 32.2 second(s) Normal 25.1-36.5 [facility] Comment on above: Result Comment: Para meter 15 days - 4 weeks 1 - 5 months 6 - 11 months 1 - 5 years 6 - 10 years 11 - 17 years PTT Mean: 35.4 (27.6-45.6) Mean: 33.5 (24.8-40.7) Mean: 32.4 (25.1-40.7) Mean: 31.6 (24.0-39.2) Mean: 31.6 (26.9-38.7) Mean: 31.0 (24.6-38.4) Pediatric Reference ranges were obtained from a study by Jovan Rojo et al. prepared from 1437 samples obtained at 7 different centers using the same coagulation reagent and instrumentation as [facility]. Currently there are no coagulation studies available worldwide for children to 14 days, and no normal ranges. Heparin therapeutic range (represented by Anti-Factor Xa activity of 0.2 - 0.4 U/mL) corresponds to PTT of 56.6 - 109.0 sec. Performed By: #### 1 [id number], 7602719, [id number] ####[facility] [address] [place] [address] INR Coag (PPP) [Relative time] 1.3 {INR} Invalid Interpretation Code [facility] Comment on above: Result Comment: INR results are specifically intended to assess patients stabilized on long-term Anticoagulation therapy suggested INR?s ?Less Intensive Anticoagulation? 2.0 ? 3.0 Conventional Range 3.0 ? 4.5 Performed By: #### 1 [id number], [id number], [id number] ####[facility] [address] [place] [address] PT Coag (PPP) [Time] 14.5 second(s) High 9.4-12.5 [facility] Comment on above: Result Comment: 15 d ays - 4 weeks 1 - 5 months 6 -11 months 1 ? 5 years 6 ? 10 years 11 -17 years Mean: 11.2 (9.5 ? 12.6) Mean: 11.0 (9.7 ? 12.8) Mean: 11.0 (9.8 ? 13.0) Mean: 11.3 (9.9 ? 13.4) Mean: 11.7 (10.0 ? 14.6) Mean: 11.8 (10.0 - 14.1) Pediatric Reference ranges were obtained from a study by Jovan Rojo et al. prepared from 1437 samples obtained at 7 different centers using the same coagulation reagent and instrumentation as [facility]. Currently there are no coagulation studies available worldwide for children to 14 days, and no normal ranges. Performed By: #### 1 [id number], 2910045, 4008597 ####[facility] [address] [place] [address] Physician Orderon 09-22-2022 Physician Order [id number]#1.00CD:12 7 Normal [facility] XR Chest 2 Viewson 3 XR Chest 2 Views Exam Date/Time: 09/22/2022 16:15 EDT Reason for Exam: P.A.T. Report IMPRESSION: NO EVIDENCE OF ACTIVE CHEST DISEASE. CLINICAL HISTORY: P.A.T.. COMMENT: The heart is normal in size. The mediastinum is unremarkable. The lungs appear clear. No infiltration nor pleural effusion is evident. Ordering Provider: Pavan Kolb FINAL REPORT Dictated: 09/22/2022 4:40 pm Danish Del Angel M.D. Signed (Electronic Signature): 09/22/2022 4:40 pm Signed by: Danish Del Angel M.D. Transcribed by: PATRICIO Technologist: [facility] Technical Comments Radiation Dose: Ka,r in mGy = na DAP = na Normal [facility] CBC AUTO DIFFon 07-01-2022 BASO # 0.1 103/ul Normal 0.0-0.1 [facility] Comment on above: Performed By: #### C BC #### [facility] [address] [address] [address] Christa Gonzalez Basophils/100 WBC (Bld) 1.0 % Normal 0.2-2.0 [facility] Comment on above: Performed By: #### C BC #### [facility] [address] [place] [address] Dr. Christa Gonzalez EO # 0.1 103/ul Normal 0.0-0.7 [facility] Comment on above: Performed By: #### C BC #### [facility] [address] [place] [address] Dr. Christa Gonzalez Eosinophils/100 WBC (Bld) 1.0 % Normal 0.9-7.0 [facility] Comment on above: Performed By: #### C BC #### [facility] [address] [place] [address] Dr. Christa Gonzalez Erythrocyte distribution width (RBC) [Ratio] 13.2 % Normal 11.0-15.0 [facility] Comment on above: Performed By: #### C BC #### [facility] [address] [place] [address] Dr. Christa Gonzalez Hematocrit (Bld) [Volume fraction] 39.3 % Normal 36.0-48.0 [facility] Comment on above: Performed By: #### C BC #### [facility] [address] [place] [address] Dr. Christa Gonzalez Hemoglobin (Bld) [Mass/Vol] 12.6 g/dL Normal 12.0-16.0 [facility] Comment on above: Performed By: #### C BC #### [facility] [address] [place] [address] Dr. Christa Gonzalez IG # 0.04 10e3/ul Critically high 0.00-0.03 [facility] Comment on above: Performed By: #### C BC #### [facility] [address] [place] [address] Dr. Christa Gonzalez IG % 0.5 % Normal 0.0-0.5 [facility] Comment on above: Performed By: #### C BC #### [facility] [address] [place] [address] Dr. Christa Gonzalez LYMPH # 1.9 103/ul Normal 1.2-3.8 [facility] Comment on above: Performed By: #### C BC #### [facility] [address] [place] [address] Dr. Christa Gonzalez Lymphocytes/100 WBC (Bld) 23.2 % Normal 20.5-60.0 [facility] Comment on above: Performed By: #### C BC #### [facility] [address] [place] [address] Dr. Christa Gonzalez MANUAL DIFF REQ NO Normal [facility] Comment on above: Performed By: #### C BC #### [facility] [address] [place] [address] Dr. Christa Gonzalez MCH (RBC) [Entitic mass] 30.7 pg Normal 26.7-34.0 [facility] Comment on above: Performed By: #### C BC #### [facility] [address] [place] [address] Dr. Christa Gonzalez MCHC (RBC) [Mass/Vol] 32.1 g/dL Normal 29.9-35.2 [facility] Comment on above: Performed By: #### C BC #### [facility] [address] [place] [address] Dr. Christa Gonzalez MCV (RBC) [Entitic vol] 95.9 fL Normal 81.0-99.0 [facility] Comment on above: Performed By: #### C BC #### [facility] [address] [place] [address] Dr. Christa Gonzalez MONO # 0.7 103/ul Normal 0.3-0.8 [facility] Comment on above: Performed By: #### C BC #### [facility] [address] [place] [address] Dr. Christa Gonzalez Monocytes/100 WBC (Bld) 8.9 % Normal 1.7-12.0 [facility] Comment on above: Performed By: #### C BC #### [facility] [address] [place] [address] Dr. Christa Gonzalez NEUT # 5.3 103/ul Normal 1.4-6.5 [facility] Comment on above: Performed By: #### C BC #### [facility] [address] [place], [place] [address] Dr. Christa Gonzalez Neutrophils/100 WBC (Bld) 65.4 % Normal 43.0-75.0 [facility] Comment on above: Performed By: #### C BC #### [facility] [address] [place], [place] [address] Dr. Christa Gonzalez Platelet mean volume (Bld) [Entitic vol] 10.4 fL Normal 9.5-13.5 [facility] Comment on above: Performed By: #### C BC #### [facility] [address] [place], [place] [address] Dr. Christa Gonzalez PLT 244 103/ul Normal 150-450 [facility] Comment on above: Performed By: #### C BC #### [facility] [address] [address] [address] Christa Gonzalez RBC 4.10 106/ul Critically low 4.20-5.40 [facility] Comment on above: Performed By: #### C BC #### [facility] [address] [place], [place] [address] Dr. Christa Gonzalez WBC 8.1 103/ul Normal 4.0-11.0 [facility] Comment on above: Performed By: #### C BC #### [facility] [id number] Christa Gonzalez Office Visit (Cardiology)on 06-10-2022 Follow-up visit Diagnoses/Problems Assessed Anticoagulated (V58.61) (Z79.01) Essential hypertension (401.9) (I10) Paroxysmal atrial fibrillation (427.31) (I48.0) Overweight with body mass index (BMI) of 25 to 25.9 in adult (278.02,V85.21) (E66.3,Z68.25) Edema (782.3) (R60.9) Former smoker (V15.82) (Z87.891) quit 1971 Orders Essential hypertension Renew: Spironolactone 25 MG Oral Tablet; TAKE 1 TABLET DAILY Overweight with body mass index (BMI) of 25 to 25.9 in adult Healthy Weight Tips; Status:Complete - Retrospective Authorization; Done: 10Jun2022 Some eating tips that can help you lose weight.; Status:Complete - Retrospective Authorization; Done: 10Jun2022 Paroxysmal atrial fibrillation Renew: Aspirin EC 81 MG Oral Tablet Delayed Release; 2 per week SocHx: Former smoker Tobacco Use Screening; Status:Complete; Done: 10Jun2022 Patient Instructions Please bring all medicines, vitamins, and herbal supplements with you when you come to the office. Prescriptions will not be filled unless you are compliant with your follow up appointments or have a follow up appointment scheduled as per instruction of your physician. Refills should be requested at the time of your visit. Follow up in 1 year. Chief Complaint ELICIA DENT is being seen for a 9 month follow-up of. History of Present Illness Patient returns for follow-up of problems as noted. In the interim she is done well and denies any symptoms associated with paroxysmal atrial fibrillation. She is tolerating warfarin therapy well and has no complaints in this regard. Blood pressure control is also acceptable. She has some leg edema and it was discussed in detail but she does not wish to intensify diuretic therapy and because of this she will continue as is. She was congratulated on her continued tobacco abstinence but reminded of the merits of a modest diet and weight loss. Surgical History Problems History of Appendectomy History of Breast reduction History of Carpal tunnel surgery History of Cervical surgery History of Cholecystectomy History of Colonoscopy 13Jul2016 Dr Akash Lala History of Dilation and curettage History of Hand surgery History of Hip replacement bilateral History of Hysterectomy History of Knee surgery History of Lower back surgery History of Lumpectomy History of Neck surgery History of Tonsillectomy with adenoidectomy Current Meds Medication NameInstruction Aspirin EC 81 MG Oral Tablet Delayed Release2 per week Baclofen 10 MG Oral TabletTAKE 1 TABLET Daily prn Calcium 600 MG TABSTAKE 1 TABLET DAILY. Furosemide 20 MG Oral TabletTAKE 1 TABLET DAILY. Gabapentin 300 MG Oral CapsuleTAKE 1 CAPSULE 3 TIMES DAILY. Glucosamine Chondr 1500 Complx Oral CapsuleTAKE 2 CAPSULE Daily Magnesium 400 MG Oral TabletTake 1 tablet daily MiraLax 17 GM Oral PacketUSE DIRECTED. Multi Vitamin Oral TabletTAKE 1 TABLET DAILY. Omeprazole 40 MG Oral Capsule Delayed ReleaseTAKE 1 CAPSULE Daily Spironolactone 25 MG Oral TabletTAKE 1 TABLET DAILY. Vitamin D3 25 MCG (1000 UT) Oral CapsuleTAKE 1 CAPSULE Daily Warfarin Sodium TABSTAKE 1 TABLET DAILY OR DIRECTED BY THE [facility] Zinc 50 MG Oral TabletTAKE 1 TABLET DAILY. Allergies Medication Darvocet A500 Adverse Reaction; Hallucinations;; Recorded By: Funmilayo Mast; 07/19/2021 7:39:45 PM Indocin CAPS Adverse Reaction; Hallucinations;; Recorded By: Funmilayo Mast; 07/19/2021 7:39:45 PM Nucynta TABS Adverse Reaction; Hallucinations;; Recorded By: Funmilayo Mast; 07/19/2021 7:39:45 PM Social History Problems Former smoker (V15.82) (Z87.891) quit 1970 No alcohol use No caffeine use No illicit drug use Review of Systems Constitutional: not feeling tired. Eyes: no eyesight problems. ENT: no hearing loss and no nosebleeds. Cardiovascular: no intermittent leg claudication and as noted in HPI. Respiratory: no chronic cough and no shortness of breath. Gastrointestinal: no change in bowel habits and no blood in stools. Genitourinary: no urinary frequency. Skin: no skin rashes. Neurological: no seizures and no frequent falls. Psychiatric: no depression and not suicidal. All other systems have been reviewed and are negative for complaint. Vitals Vital Signs Recorded: 10Jun2022 09:23AM Heart Rate64, L Radial Bhrwtiff991, LUE, Sitting Puxkhegnt72, LUE, Sitting Height5 ft 5 in Wlwdnp094 lb BMI Oempeekuio81.46 kg/m2 BSA Calculated1.77 Tobacco Useb) No Falls Screening (Age 18+)a) No falls within the last year Physical Exam Constitutional: alert and in no acute distress. Eyes: no erythema, swelling or discharge from the eye . Neck: neck is supple, symmetric, trachea midline, no masses and no thyromegaly . Pulmonary: no increased work of breathing or signs of respiratory distress and lungs clear to auscultation. Cardiovascular: carotid pulses 2+ bilaterally with no bruit , JVP was normal, no thrills , regular rhythm, (more content not included)... Normal [employer] Tobacco Screening.on 022 Fall risk assessment a) No falls within the last year [facility] y 250 DO Work Phone: Tobacco use status [facility] b) No [facility] 250 DO Work Phone: MG MAMM SCREEN 3D ROBERT CADon 05-26-2022 MG MAMM SCREEN 3D ROBERT CAD Patient: ELICIA DENT Exam Date: 05/26/2022 : 1950 Gender:F Ordering : DR KYLE ALMENDAREZ M.D. Admission #: [id number] Family : Order #: [id number] CLICK HERE TO VIEW EXAM RADIOLOGY REPORT PROCEDURE: MAMMOGRAM SCREENING 3D BILATERAL CAD COMPARISON: MG MAMM SCREEN 3D ROBERT CAD, 05/23/2021. MG MAMM SCREEN ROBERT W CAD, 05/22/2020. INDICATIONS: Screening mammography Calculator Name NCI Breast Cancer Risk Assessment Tool 5 Year Breast Cancer Risk n/a% Lifetime Breast Cancer Risk n/a% Personal Breast Cancer Yes, Left breast cancer 2001 Personal Ovarian Cancer No Treatments Pt. had robert breast reduction surgery in 2001. Lt breast cancer found in excised tissue Family Cancers Aunt-maternal with breast cancer at age 70; Aunt-maternal with breast cancer at age 70; Aunt-maternal with breast cancer at age 70; Father with lung, prostate, colon cancer at age 75; Sister with colon cancer at age 51; Brother with lung cancer at age 64; Grandmother-maternal with lung cancer at age 80; Uncle-maternal with colon cancer at age 70. LOCATION: [facility] BREAST COMPOSITION: Scattered areas fibroglandular density. FINDINGS: DIAGNOSTIC CATEGORY 2--BENIGN FINDING. NO CHANGE FROM COMPARISON. Scattered benign-appearing calcifications are present. Scattered benign-appearing lymph nodes are present. RIGHT BREAST: No significant suspicious finding. Stable micro clip marker upper breast seen on the MLO projection LEFT BREAST: No significant suspicious finding. Stable micro clip marker with density upper-outer quadrant RECOMMENDATIONS: ROUTINE MAMMOGRAM AND CLINICAL EVALUATION IN 12 MONTHS. PLEASE NOTE: A NORMAL MAMMOGRAM DOES NOT EXCLUDE THE POSSIBILITY OF BREAST CANCER. A CLINICALLY SUSPICIOUS PALPABLE LUMP SHOULD BE BIOPSIED. Dictated by: Ke Fernández MD on 05/26/2022 at 15:36 Approved by: Ke Fernández MD on 05/26/2022 at 15:38 Normal [facility] CBC AUTO DIFFon 05-24-2022 BASO # 0.1 103/ul Normal 0.0-0.1 [facility] Comment on above: Performed By: #### C BC #### [facility] [address] [place] [address] Dr. Christa Gonzalez Basophils/100 WBC (Bld) 0.8 % Normal 0.2-2.0 [facility] Comment on above: Performed By: #### C BC #### [facility] [address] [place] [address] Dr. Christa Gonzalez EO # 0.1 103/ul Normal 0.0-0.7 [facility] Comment on above: Performed By: #### C BC #### [facility] [address] [place] [address] Dr. Christa Gonzalez Eosinophils/100 WBC (Bld) 1.8 % Normal 0.9-7.0 [facility] Comment on above: Performed By: #### C BC #### [facility] [address] [place] [address] Dr. Christa Gonzalez Erythrocyte distribution width (RBC) [Ratio] 13.2 % Normal 11.0-15.0 [facility] Comment on above: Performed By: #### C BC #### [facility] [address] [place] [address] Dr. Christa Gonzalez Hematocrit (Bld) [Volume fraction] 38.6 % Normal 36.0-48.0 [facility] Comment on above: Performed By: #### C BC #### [facility] [address] [place] [address] Dr. Christa Gonzalez Hemoglobin (Bld) [Mass/Vol] 12.7 g/dL Normal 12.0-16.0 [facility] Comment on above: Performed By: #### C BC #### [facility] [address] [place] [address] Dr. Christa Gonzalez IG # 0.02 10e3/ul Normal 0.00-0.03 [facility] Comment on above: Performed By: #### C BC #### [facility] [address] [place] [address] Dr. Christa Gonzalez IG % 0.3 % Normal 0.0-0.5 [facility] Comment on above: Performed By: #### C BC #### [facility] [address] [place] [address] Dr. Christa Gonzalez LYMPH # 2.6 103/ul Normal 1.2-3.8 [facility] Comment on above: Performed By: #### C BC #### [facility] [address] [address] [address] Christa Gonzalez Lymphocytes/100 WBC (Bld) 39.1 % Normal 20.5-60.0 [facility] Comment on above: Performed By: #### C BC #### [facility] [address] [place] [address] Dr. Christa Gonzalez MANUAL DIFF REQ NO Normal [facility] Comment on above: Performed By: #### C BC #### [facility] [address] [place] [address] Dr. Christa Gonzalez MCH (RBC) [Entitic mass] 30.9 pg Normal 26.7-34.0 [facility] Comment on above: Performed By: #### C BC #### [facility] [address] [place] [address] Dr. Christa Gonzalez MCHC (RBC) [Mass/Vol] 32.9 g/dL Normal 29.9-35.2 [facility] Comment on above: Performed By: #### C BC #### [facility] [address] [place] [address] Dr. Christa Gonzalez MCV (RBC) [Entitic vol] 93.9 fL Normal 81.0-99.0 [facility] Comment on above: Performed By: #### C BC #### [facility] [address] [place] [address] Dr. Christa Gonzalez MONO # 0.5 103/ul Normal 0.3-0.8 [facility] Comment on above: Performed By: #### C BC #### [facility] [address] [place] [address] Dr. Christa Gonzalez Monocytes/100 WBC (Bld) 7.9 % Normal 1.7-12.0 [facility] Comment on above: Performed By: #### C BC #### [facility] [address] [address] [address] Christa Gonzalez NEUT # 3.3 103/ul Normal 1.4-6.5 [facility] Comment on above: Performed By: #### C BC #### [facility] [address] [address] [address] Christa Gonzalez Neutrophils/100 WBC (Bld) 50.1 % Normal 43.0-75.0 [facility] Comment on above: Performed By: #### C BC #### [facility] [address] [address] [address] Christa Gonzalez Platelet mean volume (Bld) [Entitic vol] 9.9 fL Normal 9.5-13.5 [facility] Comment on above: Performed By: #### C BC #### [facility] [address] [address] [address] Christa Gonzalez PLT 226 103/ul Normal 150-450 [facility] Comment on above: Performed By: #### C BC #### [facility] [address] [place] [address] Dr. Christa Gonzalez RBC 4.11 106/ul Critically low 4.20-5.40 [facility] Comment on above: Performed By: #### C BC #### [facility] [address] [place] [address] Dr. Christa Gonzalez WBC 6.6 103/ul Normal 4.0-11.0 [facility] Comment on above: Performed By: #### C BC #### [facility] [address] [address] [address] Christa Gonzalez PROF CHEM 8 (BAS METB)on Anion gap [Moles/Vol] 7.5 mmol/L Normal [facility] Comment on above: Performed By: #### B MP #### [facility] [address] [place] [address] Dr. Christa Gonzalez Calcium [Mass/Vol] 9.1 mg/dL Normal 8.5-10.1 [facility] Comment on above: Performed By: #### B MP #### [facility] [address] [address] [address] Christa Gonzalez Chloride [Moles/Vol] 104 mmol/L Normal 98-107 [facility] Comment on above: Performed By: #### B MP #### [facility] [address] [address] [address] Christa Gonzalez CO2 [Moles/Vol] 32.3 mmol/L Critically high 21.0-32.0 [facility] Comment on above: Performed By: #### B MP #### [facility] [address] [address] [address] Christa Gonzalez Creatinine [Mass/Vol] 1.41 mg/dL Critically high 0.55-1.02 [facility] Comment on above: Performed By: #### B MP #### [facility] [address] [address] [address] Christa Gonzalez EGFR-AF SLOVENIAN 44 mL/min/1.73m2 Critically low >=60 [facility] Comment on above: Performed By: #### B MP #### [facility] [address] [address] [address] Christa Gonzalez EGFR-NON AF SLOVENIAN 37 mL/min/1.73m2 Critically low >=60 [facility] Comment on above: Performed By: #### B MP #### [facility] [address] [address] [address] Christa Gonzalez Glucose [Mass/Vol] 95 mg/dL Normal 74-106 [facility] Comment on above: Performed By: #### B MP #### [facility] [address] [address] [address] Christa Gonzalez Potassium [Moles/Vol] 3.8 mmol/L Normal 3.5-5.1 [facility] Comment on above: Performed By: #### B MP #### [facility] [address] [address] [address] Christa Gonzalez Sodium [Moles/Vol] 140 mmol/L Normal 136-145 [facility] Comment on above: Performed By: #### B MP #### [facility] [address] [address] [address] Christa Gonzalez Urea nitrogen [Mass/Vol] 35.0 mg/dL Critically high 7.0-18.0 [facility] Comment on above: Performed By: #### B MP #### [facility] [address] [address] [address] Christa Gonzalez Urea nitrogen/Creatinine [Mass ratio] 24.8 mg/mg Normal [facility] Comment on above: Performed By: #### B MP #### [facility] [address] [address] [address] Christa Gonzalez PROTIMEon 05-24-2022 INR Coag (PPP) [Relative time] 2.11 {INR} Normal [facility] Comment on above: Performed By: #### P T #### [facility] [address] [place] [address] Dr. Christa Gonzalez INR GUIDELINES SEE BELOW Normal [facility] Comment on above: Result Comment: KANDICE RED INR: 2.0 - 3.0 CONDITIONS NOT LISTED BELOW 2.5 - 3.5 FOR PROSTHETIC HEART VALVE REPLACEMENT 2.5 - 3.5 RECURRENT THROMBOSIS Performed By: #### P T #### [facility] [address] [address] [address] Christa Gonzalez PT Coag (PPP) [Time] 21.7 s Critically high 9.0-11.6 [facility] Comment on above: Performed By: #### P T #### [facility] [address] [place] [address] Dr. Christa Gonzalez XR CHEST 2 Von 01-17-2022 XR CHEST 2 V EXAM: CHEST 2 VIEWS, THORACIC SPINE 2 VIEWS HISTORY: Low back pain TECHNIQUE: PA and lateral views chest, 2 views thoracic spine. COMPARISON: None. FINDINGS: The lungs are clear. There is no focal lung consolidation, pleural effusion or pneumothorax. Pulmonary vasculature is within normal limits. The cardiomediastinal silhouette is normal. There is normal alignment of the thoracic spine without scoliosis or listhesis. There are degenerative spurs throughout the thoracic spine. There is no thoracic spine compression fracture. Posterior spinal fusion instrumentation noted in the lumbar spine and partially seen in the cervical spine. There are cholecystectomy clips. IMPRESSION: 1. Clear lungs. No acute cardiopulmonary disease. 2. Normal thoracic spine alignment with degenerative spondylosis throughout the visualized spine. Negative for thoracic spine compression fracture. Partially visualized cervical and lumbar fusion instrumentation. Electronically authenticated by: TAY DICKERSON Date: 2022-01-17 09:22 Normal [facility] CNOVon 10-16-2021 CNOV Office Visit (SPSLUH ) ----- ELICIA DENT ([id number]) 1950 F Date Time Provider Department 10/16/21 3:50 PM KE SCHAEFER [facility] During your visit today, we recorded the following information about you: Pulse Blood pressure 69/minute 163/72 Ke Schaefer PA-C 10/16/2021 4:43 PM Signed Records reviewed and there is no mention of a right L5-S1 being done previously. We will have her get a right L5-S1 done as a diagnostic test per Dr. Dillard's request. Pt reports no change in sx's since last visit. 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 - warfarin sodium (WARFARIN ORAL) Take by mouth. - gluc kiran/chondro kiran A/vit C/Mn (GLUCOSAMINE-CHONDROITIN COMPLX ORAL) Take by mouth. - calcium carbonate (CALCIUM 600 ORAL) Take by mouth. - magnesium oxide 400 mg magnesium tab Take by mouth. - Zinc 50 mg tab Take by mouth. - vit no.124/iron/folic ( VITAMIN ORAL) Take by mouth. - GABAPENTIN ORAL Take by mouth. - furosemide (LASIX) 20 mg tablet Take 20 mg by mouth once daily. - aspirin, enteric coated (ASPIRIN, ENTERIC COATED) 81 mg EC tablet Take 81 mg by mouth as needed. 2 per week - vitamin b complex capsule Take 1 capsule by mouth once daily. - polyethylene glycol 3350 (MIRALAX) 17 gram/dose powder Take by mouth once daily. Dissolve dose in 4 - 8 ounces of liquid and take as directed. Problem List As Of Date: 10/16/2021 (None) Encounter Status:Closed by [facility] Tele[facility] (SPNSMN) ----- ELICIA DENT ([id number]) 1950 F Date Time Provider Department 09/09/21 Michael DILLARD [facility] During your visit today, we recorded the following information about you: Sj Villa, RN 09/09/2021 11:46 AM Signed Neuro SPINE CARE COORDINATION QUICK NOTE Spoke with patient who states sent injection notes. Office only received office notes/not procedure notes. Spoke with Dr Everett's office ([phone]) in pain management who will fax over the procedure notes. Allergies As of Date: 09/09/2021 (Not on File) Date Reviewed: Never Reviewed Reason for Visit: Information [6948] Prescriptions as of 09/09/2021 - omeprazole (PRILOSEC) 20 mg capsule Take 20 mg by mouth once daily. - warfarin sodium (WARFARIN ORAL) Take by mouth. - gluc kiran/chondro kiran A/vit C/Mn (GLUCOSAMINE-CHONDROITIN COMPLX ORAL) Take by mouth. - calcium carbonate (CALCIUM 600 ORAL) Take by mouth. - magnesium oxide 400 mg magnesium tab Take by mouth. - Zinc 50 mg tab Take by mouth. - vit no.124/iron/folic ( VITAMIN ORAL) Take by mouth. - GABAPENTIN ORAL Take by mouth. - furosemide (LASIX) 20 mg tablet Take 20 mg by mouth once daily. - aspirin, enteric coated (ASPIRIN, ENTERIC COATED) 81 mg EC tablet Take 81 mg by mouth as needed. 2 per week - vitamin b complex capsule Take 1 capsule by mouth once daily. - polyethylene glycol 3350 (MIRALAX) 17 gram/dose powder Take by mouth once daily. Dissolve dose in 4 - 8 ounces of liquid and take as directed. Problem List As Of Date: 09/09/2021 (None) Encounter Status:Closed by SJ VILLA on 09/09/21 Normal [facility] Office Visit (Cardiology)on 09-06-2021 Follow-up visit Diagnoses/Problems Assessed Essential hypertension (401.9) (I10) Paroxysmal atrial fibrillation (427.31) (I48.0) Anticoagulated (V58.61) (Z79.01) Overweight with body mass index (BMI) of 25 to 25.9 in adult (278.02,V85.21) (E66.3,Z68.25) Former smoker (V15.82) (Z87.891) quit 1971 Orders Overweight with body mass index (BMI) of 25 to 25.9 in adult Healthy Weight Tips; Status:Complete - Retrospective Authorization; Done: [id number] Paroxysmal atrial fibrillation Renew: Aspirin EC 81 MG Oral Tablet Delayed Release; TAKE TABLET Weekly SocHx: Former smoker Tobacco Use Screening; Status:Complete; Done: [id number] Patient Instructions By signing my name below, I, Xiomara Celis LPN ,Romeliaibmelida, attest that this documentation has been prepared under the direction and in the presence of Dr. Danish Olguin MD. Please bring all medicines, vitamins, and herbal supplements with you when you come to the office. Prescriptions will not be filled unless you are compliant with your follow up appointments or have a follow up appointment scheduled as per instruction of your physician. Refills should be requested at the time of your visit. Follow up in 9 months Chief Complaint ELICIA DENT is being seen for a 9 month follow-up of. History of Present Illness Patient returns in follow-up of problems as noted. She doing well. She is tolerating her current strategy of antithrombotic therapy to mitigate his risk of stroke associated with paroxysms of atrial fibrillation. Today in the office she actually appears to be in sinus rhythm and doing well because of this we suggest no change. Other problems which include hypertension appear to be under good control and as a consequence no change in therapy is necessary. We did advocate diet exercise and weight loss. Current Meds Medication NameInstruction Aspirin EC 81 MG Oral Tablet Delayed ReleaseTAKE TABLET Weekly Baclofen 10 MG Oral TabletTAKE 1 TABLET Daily prn Calcium 600 MG TABSTAKE 1 TABLET DAILY. Furosemide 20 MG Oral TabletTAKE 1 TABLET DAILY. Gabapentin 300 MG Oral CapsuleTAKE 1 CAPSULE 3 TIMES DAILY. Glucosamine Chondr 1500 Complx Oral CapsuleTAKE 2 CAPSULE Daily Magnesium 400 MG Oral TabletTake 1 tablet daily MiraLax 17 GM Oral PacketUSE DIRECTED. Multi Vitamin Oral TabletTAKE 1 TABLET DAILY. Omeprazole 20 MG Oral Capsule Delayed ReleaseTAKE 1 CAPSULE DAILY EVERY MORNING BEFORE BREAKFAST. Vitamin B-3 TABSTAKE 1 TABLET DAILY DIRECTED. Warfarin Sodium TABSTAKE 1 TABLET DAILY OR DIRECTED BY THE [facility] Zinc 50 MG Oral TabletTAKE 1 TABLET DAILY. Allergies Medication Darvocet A500 Adverse Reaction; Hallucinations;; Recorded By: Funmilayo Mast; 07/19/2021 7:39:45 PM Indocin CAPS Adverse Reaction; Hallucinations;; Recorded By: Funmilayo Mast; 07/19/2021 7:39:45 PM Nucynta TABS Adverse Reaction; Hallucinations;; Recorded By: Funmilayo Mast; 07/19/2021 7:39:45 PM Social History Problems Former smoker (V15.82) (Z87.891) quit 1970 No alcohol use No caffeine use No illicit drug use Review of Systems Constitutional: not feeling tired. Eyes: no eyesight problems. ENT: no hearing loss and no nosebleeds. Cardiovascular: no intermittent leg claudication and as noted in HPI. Respiratory: no chronic cough and no shortness of breath. Gastrointestinal: no change in bowel habits and no blood in stools. Genitourinary: no urinary frequency. Skin: no skin rashes. Neurological: no seizures and no frequent falls. Psychiatric: no depression and not suicidal. All other systems have been reviewed and are negative for complaint. Vitals Vital Signs Recorded: [id number] 02:30PMRecorded: 06Sep2021 01:59PM Pwtfnjav914, RUE, Oywqrum739, RUE, Sitting Dnnedqxwp59, RUE, Syvrsqw44, RUE, Sitting Heart Rate70, R Radial Pulse QualityRegular, R Radial Height5 ft 5 in Rxbowt538 lb BMI Aebkjukpmj42.96 kg/m2 BSA Calculated1.78 Tobacco Useb) No PHQ-2 #1. Over the last 2 weeks have you felt down, depressed or hopeless? (If yes, answer PHQ-9 below)No PHQ-2 #2. Over the last 2 weeks have you felt little interest or pleasure in doing things? (If yes, answer PHQ-9 below)No Fall Screeninga) No falls within the last year Physical Exam Constitutional: alert and in no acute distress. Eyes: no erythema, swelling or discharge from the eye . Neck: neck is supple, symmetric, trachea midline, no masses and no thyromegaly . Pulmonary: no increased work of breathing or signs of respiratory distress and lungs clear to auscultation. Cardiovascular: carotid pulses 2+ bilaterally with no bruit , JVP was normal, no thrills , regular rhythm, normal S1 and S2, no murmurs , pedal pulses 2+ bilaterally and no edema . Abdomen: abdomen non-tender, no masses and no hepatomegaly . Skin: skin warm and dry, normal skin turgor . Psychiatric judgment and insight is normal and oriented to person, place and time . Signatures Electronically signed by (more content not included)... Normal [employer] Tobacco Screening.on 022 Adult depression screening assessment No [facility] y 250 DO Work Phone: Fall risk assessment a) No falls within the last year [facility] [employer] y 250 DO Work Phone: Heart Rate Regular [facility] Food Reporter y 250 DO Work Phone: Tobacco use status CP b) No [facility] U[facility]ah[employer] y 250 DO Work Phone: XR Spine Thoracic 3 Views*on 08-30-2021 XR Spine Thoracic 3 Views* FINDINGS: Minimal mid thoracic dextroscoliosis (less than 6 degrees). Diffuse hyperostosis throughout the mid thoracic spine, characteristic of DISH. Normal vertebral body height and alignment. No fracture. IMPRESSION: 1. Diffuse arthritis, no fracture. 2. Mid cervical fusion hardware. Report reported and signed by George Hobson on 08/30/2021 1233 Normal [facility] Field Engineer CNOVon 07-23-2021 CNOV Office Visit (SPSNAV ) ----- ELICIA DENT ([id number]) 1950 F Date Time Provider Department 07/23/21 10:30 AM Michael DILLARD SPSNAV During your visit today, we recorded the following information about you: Michael Dillard MD 07/23/2021 4:07 PM Signed SPINE SURGERY NEW PATIENT PCP: Corinna Davis MD REFERRING PROVIDER: Kyle Almendarez SUBJECTIVE HISTORY OF PRESENT ILLNESS: Elicia Dent is a 71 year old female presenting with leg pain. She had a L2-5 fusion done just over a year ago at [facility]. She states that since that surgery she's had pain in bother her legs, worse in the right leg. The pain follows about the Right L5 distribution and is present at all times. The pain is associated with her numbness. The electrical pain is better with gabapentin but is still quite bothersome and she does not like the drowsy effects of it. She also has weakness in her right leg that has been stable and present since her surgery. She has had PT and RF ablations. CHIEF COMPLAINT: leg pain PRECIPITATING EVENT: None DURATION OF SYMPTOMS: Greater Than 1 Year PAIN EVALUATION 07/23/2021 1052 Pain Level: 2 Pain Location: Leg-Right Description: Numbness;Dull Duration Units: Months Frequency: Continuous Pain Radiation: to the right and left foot/feet Aggravating Factors: Lifting, Pushing, Pulling, Standing, Walking, Walking upstairs Alleviating Factors: gabapentin Pain Ratio: all leg DERMATOMAL DISTRIBUTION: right L5 AMBULATORY STATUS: Impaired Community Distances ANTIPLATELET OR ANTICOAGULATION STATUS: Yes Atrial Fibrillation PREVIOUS CONSERVATIVE TREATMENTS: PT and RFA PREVIOUS SPINAL SURGERY: L2-5 fusion at [facility]SH There is no problem list on file for this patient. No past medical history on file. No past surgical history on file. No family history on file. Social History Tobacco Use - Smoking status: Not on file - Smokeless tobacco: Not on file Substance Use Topics - Alcohol use: Not on file - Drug use: Not on file ALLERGIES Not on File MEDICATIONS: No prescriptions on file. REVIEW OF SYSTEMS: GENERAL: No weight loss or malaise MUSCULOSKELETAL: Negative for joint pain, swelling or muscle pain NEURO: No history of headaches, syncope, paralysis, seizures or tremors Patient Entered Questionnaires PROMIS Score Percentiles Percentiles provide an indication of how the patient's score ranks in relation to the general population. Higher percentile rankings indicate better function/quality of life. 50th percentile is the average of the general population and indicates half of respondents had a worse score. Depression Screening: PHQ-9 Self-Harm (Item 9) response options: 0 Not at all 1 Several days 2 More than half the days 3 Nearly every day PHQ-9 Levels: 0-4 No to mild depression 5-9 Mild depression 10-14 Moderate depression 15-19 Moderately severe depression 20-27 Severe depression OBJECTIVE: PHYSICAL EXAM There were no vitals taken for this visit. GENERAL APPEARANCE: Well nourished, well developed, and no apparent distress. NEURO PSYCH: Patient oriented to person, place, and time. Mood pleasant. Benign affect. MUSCULOSKELETAL VISUAL INSPECTION CERVICAL: WNL THORACIC: WNL LUMBAR: WNL MOTOR: 5/5 in all muscle groups. With exception of Right leg is 4/5 in HF, KF, KE, DF, PF. SENSORY: Decreased sensation right L5. Negative tinels at fibular head. REFLEXES: +2 to bilateral U/L extremities. LONG TRACT SIGNS: No clonus. No Hoffmans. DATA REVIEW Imaging and outside records independently reviewed. MRI demonstrates L3-5 interbody fusion. ASSESSMENT/PLAN Right leg pain and weakness likely related to retraction to lumbosacral plexus from lateral approach. Does have a L4-5 interbody a bit posterior. Discussed CT of lumbar spine to eval for this. Elicia Dent will continue with medical management of his/her condition and has a condition that requires further workup. 1. No Orders Entered Today 2. Follow up: PRN I reviewed the information obtained and documented by the fellow. I examined the patient and evaluated all available films and pertinent documents. We discussed the case and I agree with the plans as outlined in this note. SIGNATURE: Michael Dillard MD PATIENT NAME: Elicia Dent DATE: July 23, 2021 TIME: 11:40 AM PAGER: Michael Dillard MD 07/23/2021 4:07 PM Signed This 71-year-old woman presents complaining of right sided L4 and possibly L5 radiculopathy. She underwent a minimal access lateral interbody fusion L2-5 with posterior percutaneous pedicle screw instrumentation. She reports that this pain was noticeable as soon as she woke up from surgery. On clinical exam she has a very posterior right sided incision for a lateral interbody fusion. She stands in neutral sagittal and coronal balance. She has a normal neurologic exam (more content not included)... Normal [facility] XR LUMBAR 2V AP/LATon 2021 XR LUMBAR 2V AP/LAT * * *Final Report* * * DATE OF EXAM: Jul 23 2021 12:19PM VHX [id number] - XR LUMBAR 2V AP/LAT / PROCEDURE REASON: Status post lumbar surgery * * * * Physician Interpretation * * * * HISTORY (as given from clinical provider): Status post lumbar surgery . Additional history provided by the performing technologist (if any): postop lumbar surgery x 1 year, PAIN TECHNIQUE: XR LUMBAR 2V AP/LAT Laterality: NOT APPLICABLE Views: 3 COMPARISON: None RESULT: Counting reference: Lumbosacral junction. For the purposes of this report, L4-5 is considered the level of the iliac crest and there are 5 lumbar-type vertebrae. Anatomic Variants: None. Posterior fusion L2-L5 using bilateral rods and pedicle screws. Anterior intervertebral fusion L2-3 through L4-5 using intervertebral cages. Expected postsurgical appearance. Incidental note of surgical clips in the right upper quadrant of the abdomen and bilateral hip replacements. Normal SI joints. No other significant abnormality. 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 [employer] Other Vital Signs Date Time Vital Sign Value Performing Clinician Facility 09-08-2024 12:33-0500 Diastolic blood pressure 77 mm[Hg] Kylehayde Almendarez II Work Phone: [facility] 09-08-2024 12:33-0500 Heart rate 63 /min Kyle Almendarez II Work Phone: [facility] 09-08-2024 12:33-0500 Respiratory rate 16 /min Kyle Almendarez II Work Phone: [facility] 09-08-2024 12:33-0500 SaO2% (BldA) [Mass fraction] 99 % Kyle Almendarez II Work Phone: [facility] 09-08-2024 12:33-0500 Systolic blood pressure 143 mm[Hg] Kyle Almendarez II Work Phone: [facility] 09-08-2024 10:34-0500 Body height 165.1 cm Kyle Almendarez II Work Phone: [facility] 09-08-2024 10:34-0500 Body weight 72.57 kg Kylehayde Almendarez II Work Phone: [facility] 09-07-2024 13:45-0500 Body height 165.1 cm Rosalva TORRE Work Phone: [facility] 09-07-2024 13:45-0500 Body mass index (BMI) [Ratio] 26.59 kg/m2 Rosalva TORRE Work Phone: [facility] 09-07-2024 13:45-0500 Body temperature 97.2 [degF] Rosalva TORRE Work Phone: [facility] 09-07-2024 13:45-0500 Body weight 72.48 kg Rosalva Hemmer PA Work Phone: [facility] 09-07-2024 13:45-0500 Diastolic blood pressure 72 mm[Hg] Rosalva Hemmer PA Work Phone: [facility] 09-07-2024 13:45-0500 Heart rate 49 /min Rosalva Hemmer PA Work Phone: [facility] 09-07-2024 13:45-0500 Respiratory rate 16 /min Rosalva Hemmer PA Work Phone: [facility] 09-07-2024 13:45-0500 SaO2% (BldA) [Mass fraction] 97 % Rosalva Hemmer PA Work Phone: [facility] 09-07-2024 13:45-0500 Systolic blood pressure 126 mm[Hg] Rosalva Hemmer PA Work Phone: [facility] 09-02-2024 10:34-0500 Body height 165.1 cm [facility] 09-02-2024 10:34-0500 Body mass index (BMI) [Ratio] 27.3 kg/m2 [facility] 09-02-2024 10:34-0500 Body temperature 98.1 [degF] [facility] 09-02-2024 10:34-0500 Body weight 74.38 kg [facility] 09-02-2024 10:34-0500 Diastolic blood pressure 77 mm[Hg] [facility] 09-02-2024 10:34-0500 Heart rate 63 /min [facility] 09-02-2024 10:34-0500 Respiratory rate 18 /min [facility] 09-02-2024 10:34-0500 SaO2% (BldA) [Mass fraction] 95 % [facility] 09-02-2024 10:34-0500 Systolic blood pressure 136 mm[Hg] [facility] 07-26-2024 11:33-0500 Body height 165.1 cm Rosalva Hemmer PA Work Phone: [facility] 07-26-2024 11:33-0500 Body mass index (BMI) [Ratio] 26.63 kg/m2 Rosalva Hemmer PA Work Phone: [facility] 07-26-2024 11:33-0500 Body weight 72.58 kg Rosalva Hemmer PA Work Phone: [facility] 07-26-2024 11:33-0500 Diastolic blood pressure 78 mm[Hg] Rosalva Hemmer PA Work Phone: [facility] 07-26-2024 11:33-0500 Heart rate 57 /min Rosalva Hemmer PA Work Phone: [facility] 07-26-2024 11:33-0500 Respiratory rate 16 /min Rosalva Hemmer PA Work Phone: [facility] 07-26-2024 11:33-0500 SaO2% (BldA) [Mass fraction] 98 % Rosalva Hemmer PA Work Phone: [facility] 07-26-2024 11:33-0500 Systolic blood pressure 136 mm[Hg] Rosalva Hemmer PA Work Phone: [facility] 07-04-2024 15:36-0500 Body height 165.1 cm Rosalva Hemmer PA Work Phone: [facility] 07-04-2024 15:36-0500 Body mass index (BMI) [Ratio] 26.73 kg/m2 Rosalva Hemmer PA Work Phone: [facility] 07-04-2024 15:36-0500 Body weight 72.85 kg Rosalva Hemmer PA Work Phone: [facility] 07-04-2024 15:36-0500 Diastolic blood pressure 84 mm[Hg] Rosalva Hemmer PA Work Phone: [facility] 07-04-2024 15:36-0500 Heart rate 61 /min Rosalva Hemmer PA Work Phone: [facility] 07-04-2024 15:36-0500 Respiratory rate 16 /min Rosalva Hemmer PA Work Phone: [facility] 07-04-2024 15:36-0500 SaO2% (BldA) [Mass fraction] 97 % Rosalva Hemmer PA Work Phone: [facility] 07-04-2024 15:36-0500 Systolic blood pressure 144 mm[Hg] Rosalva Hemmer PA Work Phone: [facility] 05-25-2024 13:05-0500 Body height 165.1 cm Rosalva Hemmer PA Work Phone: [facility] 05-25-2024 13:05-0500 Body mass index (BMI) [Ratio] 26.26 kg/m2 Rosalva Hemmer PA Work Phone: [facility] 05-25-2024 13:05-0500 Body weight 71.58 kg Rosalva Hemmer PA Work Phone: [facility] 05-25-2024 13:05-0500 Diastolic blood pressure 74 mm[Hg] Rosalva Hemmer PA Work Phone: [facility] 05-25-2024 13:05-0500 Heart rate 64 /min Rosalva Hemmer PA Work Phone: [facility] 05-25-2024 13:05-0500 Respiratory rate 16 /min Rosalva Hemmer PA Work Phone: [facility] 05-25-2024 13:05-0500 SaO2% (BldA) [Mass fraction] 93 % Rosalva Hemmer PA Work Phone: [facility] 05-25-2024 13:05-0500 Systolic blood pressure 132 mm[Hg] Rosalva Hemmer PA Work Phone: [facility] 03-31-2024 09:18-0400 Body height 165.1 cm II Kyle Almendarez Work Phone: [facility] 03-31-2024 09:18-0400 Body mass index (BMI) [Ratio] 26 kg/m2 II Kyle Almendarez Work Phone: [facility] 03-31-2024 09:18-0400 Body weight 70.98 kg II Kyle Almendarez Work Phone: [facility] 03-28-2024 12:35-0400 Body height 165.1 cm Quita Hall MD Work Phone: [facility] 03-28-2024 12:35-0400 Body mass index (BMI) [Ratio] 25.96 kg/m2 Quita Hall MD Work Phone: [facility] 03-28-2024 12:35-0400 Body weight 70.76 kg Quita Hall MD Work Phone: [facility] 03-28-2024 12:35-0400 Diastolic blood pressure 80 mm[Hg] Quita Hall MD Work Phone: [facility] 03-28-2024 12:35-0400 Heart rate 62 /min Quita Hall MD Work Phone: [facility] 03-28-2024 12:35-0400 Systolic blood pressure 120 mm[Hg] Quita Hall MD Work Phone: [facility] 03-05-2024 06:32-0400 Body height 165.1 cm II Kyle Almendarez Work Phone: [facility] 03-05-2024 06:32-0400 Body weight 69.39 kg BERNIE Almendarez Work Phone: [facility] 01-29-2024 11:39-0400 Body height 165.1 cm [facility] 01-29-2024 11:39-0400 Body mass index (BMI) [Ratio] 25.89 kg/m2 [facility] 01-29-2024 11:39-0400 Body weight 70.58 kg [facility] 01-29-2024 11:39-0400 Diastolic blood pressure 62 mm[Hg] [facility] 01-29-2024 11:39-0400 Heart rate 43 /min Sridhar Mcgill [facility] 01-29-2024 11:39-0400 Systolic blood pressure 138 mm[Hg] Sridhar Mcgill [facility] 07-02-2023 10:42-0500 Diastolic blood pressure 60 mm[Hg] Danish Olguin MD Work Phone: [facility] 07-02-2023 10:42-0500 Systolic blood pressure 132 mm[Hg] Danish Olguin MD Work Phone: [facility] 07-02-2023 10:26-0500 Body height 165.1 cm Danish Olguin MD Work Phone: [facility] 07-02-2023 10:26-0500 Body mass index (BMI) [Ratio] 25.46 kg/m2 Danish Olguin MD Work Phone: [facility] 07-02-2023 10:26-0500 Body weight 69.4 kg Danish Olguin MD Work Phone: [facility] 07-02-2023 10:26-0500 Heart rate 66 /min Danish Olguin MD Work Phone: [facility] 06-22-2023 10:00-0500 Body height 167.64 cm [employer] Other 06-22-2023 10:00-0500 Body mass index (BMI) [Ratio] 24.53 kg/m2 [employer] [facility] [employer] Other 06-22-2023 10:00-0500 Body weight 68.95 kg [employer] Other [employer] Other 05-28-2023 10:00-0500 Body height 167.64 cm Demetrio Devine II Other [employer] Other 05-28-2023 10:00-0500 Body mass index (BMI) [Ratio] 24.05 kg/m2 Demetrio Devine II Other [facility] [employer] Other 05-28-2023 10:00-0500 Body weight 67.59 kg Demetrio Devine II Other [facility] [employer] Other 09-25-2022 13:11-0400 Body temperature 97.88 [degF] Cathie Timmis [facility] 09-25-2022 13:11-0400 Diastolic blood pressure 76 mm[Hg] Cathie Timmis [facility] 09-25-2022 13:11-0400 Heart rate 62 /min Cathie Timmis [facility] 09-25-2022 13:11-0400 Mean blood pressure 98 mm[Hg] Cathie Timmis [facility] 09-25-2022 13:11-0400 Respiratory rate 15 /min Cathie Timmis [facility] 09-25-2022 13:11-0400 SaO2% (BldA) [Mass fraction] 98 % Cathie Timmis [facility] 09-25-2022 13:11-0400 Systolic blood pressure 143 mm[Hg] Cathie Timmis [facility] 09-25-2022 12:10-0400 Body temperature 97.7 [degF] Cathie Timmis [facility] 09-25-2022 12:10-0400 Diastolic blood pressure 73 mm[Hg] Cathie Timmis [facility] 09-25-2022 12:10-0400 Heart rate 64 /min Cathie Timmis [facility] 09-25-2022 12:10-0400 Mean blood pressure 101 mm[Hg] Cathie Timmis [facility] 09-25-2022 12:10-0400 Respiratory rate 16 /min Cathie Timmis [facility] 09-25-2022 12:10-0400 SaO2% (BldA) [Mass fraction] 97 % Cathie Timmis [facility] 09-25-2022 12:10-0400 Systolic blood pressure 157 mm[Hg] Cathie Timmis [facility] 09-25-2022 12:05-0400 Blood Pressure Location Cathie Timmis [facility] 09-25-2022 12:05-0400 Body temperature 97.52 [degF] Cathie Timmis [facility] 09-25-2022 12:05-0400 Diastolic blood pressure 70 mm[Hg] Cathie Timmis [facility] 09-25-2022 12:05-0400 Heart rate 62 /min Cathie Timmis [facility] 09-25-2022 12:05-0400 Mean blood pressure 100 mm[Hg] Cathie Timmis [facility] 09-25-2022 12:05-0400 Respiratory rate 12 /min Cathie Timmis [facility] 09-25-2022 12:05-0400 SaO2% (BldA) [Mass fraction] 98 % Cathie Timmis [facility] 09-25-2022 12:05-0400 Systolic blood pressure 161 mm[Hg] Cathie Timmis [facility] 09-25-2022 11:55-0400 Blood Pressure Location Cathie Timmis [facility] 09-25-2022 11:55-0400 FIO2 35 % Cathie Timmis [facility] 09-25-2022 11:55-0400 Respiratory rate 13 /min Cathie Timmis [facility] 09-25-2022 11:50-0400 FIO2 35 % Cathie Timmis [facility] 09-25-2022 11:45-0400 FIO2 35 % Cathie Timmis [facility] 09-25-2022 11:35-0400 Respiratory rate 16 /min Cathie Timmis [facility] 09-25-2022 09:23-0400 Mean blood pressure 95 mm[Hg] Cathie Timmis [facility] 09-25-2022 09:23-0400 Heart rate 70 /min Cathie Timmis [facility] 09-25-2022 09:22-0400 Mean blood pressure 94 mm[Hg] Cathie Timmis [facility] 09-22-2022 15:50-0400 Diastolic blood pressure 72 mm[Hg] Cathie Timmis [facility] 09-22-2022 15:50-0400 Heart rate 62 /min Cathie Timmis [facility] 09-22-2022 15:50-0400 Mean blood pressure 98 mm[Hg] Cathie Timmis [facility] 09-22-2022 15:50-0400 Systolic blood pressure 151 mm[Hg] Cathie Timmis [facility] 09-22-2022 15:49-0400 Heart rate 61 /min Cathie Timmis [facility] 09-22-2022 15:49-0400 SaO2% (BldA) [Mass fraction] 100 % Cathie Timmis [facility] 09-22-2022 15:49-0400 Diastolic blood pressure 77 mm[Hg] Cathie Timmis [facility] 09-22-2022 15:49-0400 Mean blood pressure 100 mm[Hg] Cathie Timmis [facility] 09-22-2022 15:49-0400 Systolic blood pressure 147 mm[Hg] Cathie Timmis [facility] 07-21-2022 09:22-0500 Diastolic blood pressure 71 mm[Hg] II Kyle Almendarez Work Phone: [facility] 07-21-2022 09:22-0500 Heart rate 68 /min II Kyle Almendarez Work Phone: [facility] 07-21-2022 09:22-0500 Respiratory rate 16 /min II Kyle Almendarez Work Phone: [facility] 07-21-2022 09:22-0500 SaO2% (BldA) [Mass fraction] 100 % II Kyle Almendarez Work Phone: [facility] 07-21-2022 09:22-0500 Systolic blood pressure 148 mm[Hg] II Kyle Almendarez Work Phone: [facility] 07-21-2022 07:53-0500 Body height 165.1 cm II Kyle Almendarez Work Phone: [facility] 07-21-2022 07:53-0500 Body mass index (BMI) [Ratio] 24.7 kg/m2 II Kyle Almendarez Work Phone: [facility] 07-21-2022 07:53-0500 Body weight 67.58 kg BERNIE Almendarez Work Phone: [facility] 07-21-2022 06:34-0500 Body temperature 98.1 [degF] BERNIE Almendarez Work Phone: [facility] 06-10-2022 09:23-0500 Body height 165.1 cm Danish Olguin MD Work Phone: [facility] 250 DO Work Phone: 06-10-2022 09:23-0500 Body mass index (BMI) [Ratio] 25.46 kg/m2 Danish Olguin MD Work Phone: [facility] 250 DO Work Phone: 06-10-2022 09:23-0500 Body surface area Derived from formula 1.77 m2 Danish Olguin MD Work Phone: [facility] 250 DO Work Phone: 06-10-2022 09:23-0500 Body weight 69.4 kg Danish Olguin MD Work Phone: [facility] 250 DO Work Phone: 06-10-2022 09:23-0500 Diastolic blood pressure 74 mm[Hg] Danish Olguin MD Work Phone: [facility] 250 DO Work Phone: 06-10-2022 09:23-0500 Heart rate 64 /min Danish Olguin MD Work Phone: [facility] 250 DO Work Phone: 06-10-2022 09:23-0500 Systolic blood pressure 116 mm[Hg] Danish Olguin MD Work Phone: [facility] 250 DO Work Phone: 11-20-2021 10:15-0400 Body height 167.64 cm Bandar Bales Other [employer] Other 11-20-2021 10:15-0400 Body mass index (BMI) [Ratio] 24.53 kg/m2 Bandar Bales Other [employer] Other 11-20-2021 10:15-0400 Body weight 68.95 kg Bandar Bales Other [employer] Other 10-16-2021 16:33-0400 Diastolic blood pressure 72 mm[Hg] Ke Schaefer PA-C Work Phone: [facility] 10-16-2021 16:33-0400 Heart rate 69 /min Ke Schaefer PA-C Work Phone: [facility] 10-16-2021 16:33-0400 Systolic blood pressure 163 mm[Hg] Ke Schaefer PA-C Work Phone: [facility] 09-06-2021 14:30-0500 Diastolic blood pressure 74 mm[Hg] Danish Olguin MD Work Phone: [facility] 250 DO Work Phone: 09-06-2021 14:30-0500 Systolic blood pressure 138 mm[Hg] Danish Olguin MD Work Phone: [facility] 250 DO Work Phone: 09-06-2021 13:59-0500 Body height 165.1 cm Dainsh Olguin MD Work Phone: [facility] 250 DO Work Phone: 09-06-2021 13:59-0500 Body mass index (BMI) [Ratio] 25.96 kg/m2 Danish Olguin MD Work Phone: [facility] 250 DO Work Phone: 09-06-2021 13:59-0500 Body surface area Derived from formula 1.78 m2 Danish Olguin MD Work Phone: [facility] 250 DO Work Phone: 09-06-2021 13:59-0500 Body weight 70.76 kg Danish Olguin MD Work Phone: [facility] 250 DO Work Phone: 09-06-2021 13:59-0500 Diastolic blood pressure 74 mm[Hg] Danish Olguin MD Work Phone: [facility] 250 DO Work Phone: 09-06-2021 13:59-0500 Heart rate 70 /min Danish Olguin MD Work Phone: [facility] 250 DO Work Phone: 09-06-2021 13:59-0500 Systolic blood pressure 160 mm[Hg] Danish Olguin MD Work Phone: [facility] 250 DO Work Phone: 06-08-2021 13:00-0500 Body height 167.64 cm Loli Pineda Other [employer] Other 06-08-2021 13:00-0500 Body temperature 96.8 [degF] Loli Pineda Other [employer] Other 06-08-2021 13:00-0500 SaO2% (BldA) [Mass fraction] 96 % Loli Miriam Other [employer] Other 05-04-2021 12:25-0400 Body height 167.64 cm Adrienne Mas Other [employer] Other 05-04-2021 12:25-0400 Body mass index (BMI) [Ratio] 24.63 kg/m2 Adrienne Ginty Other [employer] Other 05-04-2021 12:25-0400 Body temperature 96.4 [degF] Adrienne Ginty Other [employer] Other 05-04-2021 12:25-0400 Body weight 69.22 kg Adrienne Ginty Other [employer] Other 05-04-2021 12:25-0400 Diastolic blood pressure 67 mm[Hg] Adrienne Ginty Other [employer] Other 05-04-2021 12:25-0400 Respiratory rate 18 /min Adrienne Ginty Other [employer] Other 05-04-2021 12:25-0400 Systolic blood pressure 152 mm[Hg] Adrienne Ginty Other [employer] Other 04-11-2021 11:45-0400 Body height 167.64 cm Bandar Bales Other [employer] Other 04-11-2021 11:45-0400 Body mass index (BMI) [Ratio] 23.72 kg/m2 Bandar Bales Other [employer] Other 04-11-2021 11:45-0400 Body weight 66.68 kg Bandar Bales Other [employer] Other Encounters Encounter Date Encounter Type Care Provider Facility Start: 09-08-2024 Non-patient / Non-visit Kyle Almendarez II Work Phone: [facility] Work Phone: Start: 09-08-2024 End: 09-08-2024 Admission to same day surgery center Kyle Almendarez II Work Phone: [facility] Work Phone: Start: 09-08-2024 End: 09-08-2024 ambulatory Kyle Almendarez II Work Phone: [facility] Work Phone: Start: 09-07-2024 End: 09-07-2024 Bamboo flowsheet Rosalva TORRE Work Phone: [facility] Start: 09-07-2024 End: 09-07-2024 Bamboo flowsheet Rosalva TORRE Work Phone: [facility] Start: 09-07-2024 End: 09-07-2024 Patient encounter procedure Rosalva TORRE Work Phone: [facility] Comment on above: Medicare annual well ness visit, subsequent (Primary Dx); ACP (advance care planning); Cervical spondylosis with myelopathy; Postoperative pain; Right leg weakness; Sleep apnea with use of continuous positive airway pressure (CPAP); Status post lumbar spine operation; Benign essential hypertension (CMS/HCC); Paroxysmal atrial fibrillation (CMS/HCC); Peripheral vascular disease (CMS/HCC); Tachycardia; Lewis's esophagus without dysplasia; Gastroesophageal reflux disease without esophagitis; Irritable bowel syndrome with constipation; Slow transit constipation; Stage 3b chronic kidney disease (HCC) (CMS/HCC); Contracture, right ankle; Edema of right lower extremity; Chronic pain of both knees; Kyphoscoliosis and scoliosis; Osteoarthritis of cervical spine, unspecified spinal osteoarthritis complication status; Primary osteoarthritis of both knees; Podagra; Primary osteoarthritis involving multiple joints; Primary osteoarthritis of left hip; Spasm of thoracic back muscle; Spinal stenosis of lumbar region with neurogenic claudication; Thoracic arthritis; IGT (impaired glucose tolerance); Other primary ovarian failure; Anticoagulated; At high risk for falls; Dependence on other enabling machines and devices; Former cigarette smoker; History of left hip replacement; Hypokalemia; Low serum prealbumin; Mixed hyperlipidemia (CMS/HCC); Reactive depression (CMS/HCC); Rosacea; Tinnitus of both ears; Tremor Start: 09-07-2024 End: 09-07-2024 ambulatory ROSALVA MCKENNA Not Available Start: 09-02-2024 End: 09-02-[address] [facility] Work Phone: Start: 09-02-2024 End: 09-02-2024 Patient encounter procedure [facility] [place] Work Phone: Start: 07-26-2024 End: 07-26-2024 Bamboo flowsheet Rosalva Mckenna PA Work Phone: [facility] Start: 07-26-2024 End: 07-26-2024 Bamboo flowsheet Rosalva Mckenna PA Work Phone: [facility] Start: 07-26-2024 End: 07-26-2024 Office outpatient visit 25 minutes Rosalva Mckenna PA Work Phone: [facility] Comment on above: Tinnitus of both ear s (Primary Dx); Benign essential hypertension (CMS/HCC); Physical deconditioning; Paroxysmal atrial fibrillation (CMS/HCC) Start: 07-26-2024 End: 07-26-2024 ambulatory ROSALVA MCKENNA Not Available Start: 07-04-2024 End: 07-04-2024 Office outpatient visit 15 minutes Rosalva Mckenna PA Work Phone: [facility] Comment on above: Hair follicle infect ion (Primary Dx) Start: 07-04-2024 End: 07-04-2024 ambulatory ROSALVA MCEKNNA Not Available Start: 07-04-2024 End: 07-04-2024 Bamboo flowsheet Rosalva Mckenna PA Work Phone: [facility] Start: 07-04-2024 End: 07-04-2024 Bamboo flowsheet Rosalva Mckenna PA Work Phone: [facility] Start: 05-25-2024 End: 05-25-2024 Bamboo flowsheet Rosalva Mckenna PA Work Phone: [facility] Start: 05-25-2024 End: 05-25-2024 Bamboo flowsheet Rosalva Mckenna PA Work Phone: [facility] Start: 05-25-2024 End: 05-25-2024 Office outpatient visit 25 minutes Rosalva TORRE Work Phone: [facility] Comment on above: Hordeolum externum o f left upper eyelid (Primary Dx); Encounter for screening mammogram for malignant neoplasm of breast; Hoarseness; Memory changes Start: 05-25-2024 End: 05-25-2024 ambulatory ROSALVA MCKENNA Not Available Start: 03-31-2024 End: 03-31-2024 ambulatory II Kyle Almendarez Work Phone: [facility] Work Phone: Start: 03-31-2024 End: 03-31-2024 Patient encounter procedure II Kyle Almendarez Work Phone: [facility] Work Phone: Start: 03-28-2024 End: 03-28-2024 Patient encounter procedure II Kyle Almendarez Work Phone: [facility] [place] Work Phone: Start: 03-28-2024 End: 03-28-2024 ambulatory II Kyle Almendarez Work Phone: [facility] Work Phone: Start: 03-28-2024 End: 03-28-2024 Office outpatient visit 25 minutes Quita Hall MD Work Phone: [facility] Comment on above: Paroxysmal atrial fi brillation (Multi); Essential hypertension; Anticoagulated; BMI 25.0-25.9,adult; Former cigarette smoker; At high risk for falls Start: 03-28-2024 End: 03-28-2024 ambulatory [facility] Amb[facility] Start: 03-05-2024 End: 03-05-2024 Patient encounter procedure II Kyle Almendarez Work Phone: [facility] [place] Work Phone: Start: 03-05-2024 End: 03-05-2024 ambulatory II Kyle Almendarez Work Phone: [facility] Work Phone: Start: 02-29-2024 End: 02-29-2024 ambulatory ROSALVA Celena CLARISA Not Available Start: 02-18-2024 End: 02-18-2024 ambulatory [facility] Ambulatory Start: 02-11-2024 End: 02-11-2024 ambulatory II Kyle Almendarez Work Phone: [facility] Work Phone: Start: 02-11-2024 End: 02-11-2024 Patient encounter procedure II Kyle Almendarez Work Phone: [facility] Work Phone: Start: 01-29-2024 End: 01-29-2024 Professional / ancillary services management Sridhar Mcgill [facility] Comment on above: Paroxysmal atrial fi brillation (Multi) Start: 01-29-2024 End: 01-29-2024 ambulatory DANISH OLGUIN [facility] Ambulatory Start: 11-11-2023 End: 11-11-2023 ambulatory ROSALVA MCKENNA Not Available Start: 09-22-2023 End: 09-22-2023 ambulatory ROSALVA MCKENNA Not Available Start: 07-15-2023 End: 07-15-2023 ambulatory Farnaz Gonzalez Other [facility] [employer] Other Start: 07-15-2023 Telephone encounter Farnaz JACKSON [facility] Start: 07-02-2023 End: 07-02-2023 Office outpatient visit 25 minutes Danish Olguin MD Work Phone: [facility] Comment on above: Paroxysmal atrial fi brillation (CMS/HCC) (Primary Dx); Essential hypertension; Anticoagulated Start: 06-29-2023 End: 06-29-2023 amb[address] aFrnaz Gonzalez Other [facility] [employer] Other Start: 06-29-2023 Telephone encounter Farnaz JACKSON Formula Technician Start: 12-11-2023 Office outpatient ne w 45 minutes Farnaz Gonzalez [facility] [place] Start: 06-22-2023 End: 06-22-2023 ambulatory II Kyle Almendarez Work Phone: [facility] Work Phone: Start: 06-22-2023 End: 06-22-2023 Patient encounter procedure II Kyle Almendarez Work Phone: [facility] [place] Work Phone: Start: 05-28-2023 End: 05-28-2023 ambulatory Demetrio Devine II Other [facility] [employer] Other Start: 05-28-2023 Office outpatient ne w 45 minutes Demetrio Devine II [facility] Start: 05-28-2023 End: 05-28-2023 Patient encounter procedure II Kyle Almendarez Work Phone: [facility] Start: 03-17-2023 Rx Renewal Andrzej Stanleyd Smi th MANAGEMENT TECH-NATURAL RESOURCE SPECIALIST Work Phone: [facility] 250 DO Work Phone: Start: 02-18-2023 End: 02-19-2023 ambulatory Micah Walker Facility:[facility] Start: 02-18-2023 End: 02-18-2023 Lab Drop off Micah Walker [facility] Start: 11-10-2022 End: 12-10-2022 ambulatory SHAIKH Bobbi ROUSE Facility: Start: 10-13-2022 End: 11-07-2022 ambulatory H PADMA Facility: Start: 09-25-2022 End: 09-25-2022 ambulatory Cathie Gomez Facility:[facility] Start: 09-25-2022 End: 09-25-2022 Admission to same day surgery center Cathie Gomez [facility] Start: 09-22-2022 End: 09-23-2022 ambulatory Kyle Almendarez II Facility: Start: 09-22-2022 End: 09-22-2022 Patient encounter procedure Cathie Gomez [facility] Start: 09-10-2022 End: 10-10-2022 ambulatory YOUNG H FAWWAD Facility:[facility]1 Start: 08-13-2022 End: 09-10-2022 ambulatory YOUNG H FAWWAD Facility:[facility]1 Start: 07-21-2022 End: 07-21-2022 Admission to same day surgery center BERNIE Almendarez Work Phone: [facility] [place] Start: 07-21-2022 End: 07-21-2022 ambulatory BERNIE Kyle Almendarez Work Phone: [facility] Work Phone: Start: 07-14-2022 End: 08-13-2022 ambulatory SHAIKH Bobbi ROUSE Facility:[facility]1 Start: 07-01-2022 End: 07-02-[address] KYLE ALMENDAREZ Facility:[facility]1 Start: 06-12-2022 End: 07-13-[address] KYLE ALMENDAREZ Facility:[facility]1 Start: 06-10-2022 Office outpatient vi sit 15 minutes Danish Olguin MD Work Phone: [facility] 250 DO Work Phone: Start: 06-10-2022 ambulatory Kyle Almendarez II Facility: Start: 05-26-2022 End: 05-27-[address] KYLE ALMENDAREZ Facility:[facility]1 Start: 05-24-2022 End: 05-25-2022 ambulatory JULIAN BAIG Facility:[facility]1 Start: 05-13-2022 End: 06-11-2022 ambulatory YOUNG H JEANWAD Facility:[facility]1 Start: 04-14-2022 End: 05-12-2022 ambulatory YOUNG H FAWWAD Facility:[facility]1 Start: 03-13-2022 End: 04-12-2022 ambulatory YOUNG H FAWWAD Facility:[facility]1 Start: 02-10-2022 End: 03-12-2022 ambulatory SHAIKH Bobbi ROUSE Facility:[facility]1 Start: 01-24-2022 Rx Renewal Danish nam MD Work Phone: [facility] 250 DO Work Phone: Start: 01-16-2022 End: 01-17-[address] KYLE ALMENDAREZ Facility:[facility]1 Start: 01-10-2022 End: 02-07-2022 ambulatory SHAIKH Bobbi ROUSE Facility:[facility]1 Start: 11-20-2021 End: 11-20-2021 ambulatory Bandar Bales Other [employer] Other Start: 11-20-2021 Office outpatient vi sit 15 minutes Bandar Bales [facility] Start: 11-12-2021 (Procedure) Short Bandar Bales [facility] Start: 11-12-2021 End: 11-12-2021 ambulatory Bandar Bales Other [employer] Other Start: 10-16-2021 End: 10-16-2021 Patient encounter procedure Ke Schaefer PA-C Work Phone: [facility] Comment on above: Intervertebral disc disorder with radiculopathy of lumbar region Start: 09-09-2021 End: 09-09-2021 ambulatory Ke Ellington Other [employer] Other Start: 09-09-2021 Telephone encounter Ke Ell[place] [facility] Start: 09-06-2021 Office outpatient vi sit 25 minutes Danish Olguin MD Work Phone: [facility] 250 DO Work Phone: Start: 09-06-2021 Patient encounter procedure Danish Olguin MD Work Phone: [facility] 250 DO Work Phone: Start: 06-08-2021 End: 06-08-2021 ambulatory Loli Pineda Other [employer] Other Start: 06-08-2021 Office outpatient vi sit 15 minutes Loli Miriam [facility] [place] Start: 05-04-2021 End: 05-04-2021 ambulatory Adrienne Mas Other [employer] Other Start: 05-04-2021 Office outpatient vi sit 15 minutes Adrienne Jeannenty [facility] [place] Start: 04-11-2021 Office outpatient vi sit 25 minutes Bandar Bales [facility] Start: 02-11-2018 Patient encounter procedure ANDRZEJ MARINELLI Facility:[id number] Start: 02-09-2018 Patient encounter procedure ANDRZEJ MARINELLI Facility:3 Start: 04-30-2016 Preoperative state Bandar montiel Other [employer] Other Procedures Date Procedure Procedure Detail Performing Clinician Start: 09-08-2024 Colonoscopy Kyle graff II Work Phone: Start: 06-01-2024 Mammography Rosalva Hemm er PA Work Phone: Start: 03-05-2024 MRI of lumbar spine with contrast II Kyle Almendarez Work Phone: Start: 02-11-2024 Plain X-ray of right hip II Kyle Almendarez Work Phone: Start: 06-22-2023 X-ray of lumbar spin e, six views including bending views II Kyle Almendarez Work Phone: Start: 05-28-2023 Pelvis X-ray II Kyle Almendarez Work Phone: Start: 05-28-2023 X-ray of both knees II Kyle Almendarez Work Phone: Start: 09-25-2022 Nasal endoscope (phy sical object) Cathie Gomez Start: 07-21-2022 End: 07-21-2022 Colonoscopy II Kyle Almendarez Work Phone: Start: 05-26-2022 Mammography Danish Garcia MD Work Phone: Appendectomy Danish Olguin MD Work Phone: Appendectomy Cathie Timmis Arthroscopy of knee Cathie T immis Back fusion Cathie Timmis Cholecystectomy Danish steele MD Work Phone: Cholecystectomy Cathie Timmi s Colonoscopy Danish Olguin MD Work Phone: Comment on above: Akash Lala; Decompression of med robert nerve Danish Olguin MD Work Phone: Decompression of med robert nerve Cathie Timmis Dilation and curettage Bert Olguin MD Work Phone: Dilation and curettage Hilar y Timmis H/O: hysterectomy Cathie Gil mis Hysterectomy Danish Olguin MD Work Phone: Lumpectomy of breast Danish Olguin MD Work Phone: Operative procedure on hand Danish Olguin MD Work Phone: Operative procedure on knee Danish Olguin MD Work Phone: Operative procedure on uterus AND/OR cervix Danish Olguin MD Work Phone: Procedure on neck Danish Garcia MD Work Phone: Prosthetic arthropla sty of the hip Danish Olguin MD Work Phone: Comment on above: bilateral; Reduction mammoplasty Jamison Olguin MD Work Phone: Reduction mammoplasty Cathie Timmis Surgical procedure on thorax Danish Olguin MD Work Phone: Tonsillectomy Cathie Timmis Tonsillectomy and adenoidectomy Danish Olguin MD Work Phone: Total replacement of hip Crow melissa Olguin MD Work Phone: Comment on above: bilateral; Total replacement of hip Nathalie Gomez Plan of Treatment Date Care Activity Detail Author Start: 07-21-2032 Screening for malign ant neoplasm of colon [facility] Start: 09-07-2025 Medicare Annual Wellness (AWV) Medicare Annual Wellness (AWV) [facility] Start: 06-01-2025 Screening for malign ant neoplasm of breast Mammogram [facility] Start: 03-16-2025 End: 03-16-2025 Patient encounter procedure 03/16/2025 10:45 AM EDT Office Visit [address] [place] [address] Quita Hall MD [address] [facility] [address] [place] [address] [facility] Start: 02-27-2025 End: 02-27-2025 Patient encounter procedure 02/27/2025 10:45 AM EDT Appointment [address] [place] [address] [facility] Start: 02-25-2025 End: 03-28-2025 CBC panel - Blood by Automated count CBC Lab Routine Essential hypertension Expected: 02/25/2025 (Approximate), Expires: 03/28/2025 [facility] Work Phone: Comment on above: Expected: 02/25/2025 (Approximate), Expires: 03/28/2025 Start: 02-25-2025 End: 03-28-2025 Comprehensive metabolic 2000 panel - Serum or Plasma Comprehensive Metabolic Panel Lab Routine Essential hypertension Expected: 02/25/2025 (Approximate), Expires: 03/28/2025 [facility] Work Phone: Comment on above: Expected: 02/25/2025 (Approximate), Expires: 03/28/2025 Start: 09-21-2024 Medicare Annual Wellness (AWV) Medicare Annual Wellness (AWV) [facility] Start: 09-08-2024 [facility] Start: 09-07-2024 End: 09-07-2024 Patient encounter procedure 09/07/2024 1:30 PM EST Office Visit [facility] [address] [place] [address] Rosalva Mckenna, PA [address] [place] [address] Arrived [facility] Comment on above: Arrived Start: 07-26-2024 End: 07-26-2024 Patient encounter procedure 07/26/2024 11:30 AM EST Office Visit [facility] [address] [place] [address] Rosalva Mckenna PA [address] [place] [address] Arrived [facility] Comment on above: Arrived Start: 07-04-2024 End: 07-04-2024 Patient encounter procedure 07/04/2024 3:30 PM EST Office Visit [facility] [address] [place] [address] Rosalva Mckenna, PA [address] [place] [address] Arrived [facility] Comment on above: Arrived Start: 06-29-2024 End: 06-29-2024 Patient encounter procedure [facility] Start: 05-27-2024 End: 07-25-2025 DBT Breast - bilateral screening Bilateral screening mammogram with tomosynthesis Imaging Routine Encounter for screening mammogram for malignant neoplasm of breast Expected: 05/27/2024, Expires: 07/25/2025 [facility] Work Phone: Comment on above: Expected: 05/27/2024 , Expires: 07/25/2025 Start: 03-28-2024 End: 03-28-2025 CBC panel - Blood by Automated count CBC Lab Routine Essential hypertension Expected: 03/28/2024 (Approximate), Expires: 03/28/2025 [facility] Work Phone: Comment on above: Expected: 03/28/2024 (Approximate), Expires: 03/28/2025 Start: 03-28-2024 End: 03-28-2025 Comprehensive metabolic 2000 panel - Serum or Plasma Comprehensive Metabolic Panel Lab Routine Essential hypertension Expected: 03/28/2024 (Approximate), Expires: 03/28/2025 [facility] Service Area Work Phone: Comment on above: Expected: 03/28/2024 (Approximate), Expires: 03/28/2025 Start: 03-28-2024 End: 03-28-2026 Heart Transthoracic Transthoracic Echo Complete Echocardiography Routine Paroxysmal atrial fibrillation (Multi) Expected: 03/28/2024 (Approximate), Expires: 03/28/2026 [facility] Work Phone: Comment on above: Expected: 03/28/2024 (Approximate), Expires: 03/28/2026 Start: 03-13-2024 COVID-19 Vaccine ( season) COVID-19 Vaccine () [facility] Start: 03-13-2024 Influenza vaccination Influenza Vacc ine (#1) [facility] Start: 02-11-2024 Plain X-ray of right hip XR hip RT min 2V(w/wo pelvis)* [facility] Start: 02-11-2024 XR Hip - right 2 Views [facility] Start: 06-09-2023 FUV, Provider: Danish Olguin, Status: Pen, Time: 11:10 AM FUV, Provider: Danish Olguin, Status: Pen, Time: 11:10 AM -[facility] 250 DO Work Phone: Start: 05-26-2023 Screening for malign ant neoplasm of breast Mammogram [facility] Start: 03-13-2023 COVID-19 Vaccine () COVID-19 Vaccine () [facility] Start: 03-13-2023 Influenza vaccination Influenza Vacc ine (#1) [facility] Start: 07-21-2022 [facility] Start: 07-21-2022 [facility] Start: 06-10-2022 FUV, Provider: Danish Olguin, Status: Pen, Time: 10:20 AM RAMSEYV, Provider: Danish Olguin, Status: Pen, Time: 10:20 AM [place] [address] DO Work Phone: Start: 03-13-2022 Influenza vaccination INFLUENZA (Sea son Ended) [facility] Start: 07-13-2021 ADVANCE DIRECTIVE DISCUSSION ADVANCE DIRECTIVE DISCUSSION [facility] Start: 08-04-2017 Pneumococcal Vaccine : 65+ Years (2 - PCV) Pneumococcal Vaccine: 65+ Years (2 - PCV) [facility] Start: 08-04-2017 Pneumococcal Vaccine : 65+ Years (2 of 2 - PCV) Pneumococcal Vaccine: 65+ Years (2 of 2 - PCV) [facility] Start: 2014 BONE DENSITY BONE DENSITY [facility] Start: 2014 PNEUMOVAX AGE 65 AND OVER WITH 5YR LOOKBACK (#1) PNEUMOVAX AGE 65 AND OVER WITH 5YR LOOKBACK (#1) [facility] Start: 2009 RSV patient s and/or patients aged 60+ years (1 - 1-dose 60+ series) RSV patients and/or patients aged 60+ years (1 - 1-dose 60+ series) [facility] Start: 1999 SHINGRIX VACCINE (1 of 2) SHINGRIX VACCINE (1 of 2) [facility] Start: 1999 Zoster Vaccines (1 o f 2) Zoster Vaccines (1 of 2) [facility] Start: 1994 COLOGUARD (FIT-DNA) COLOGUARD (FIT-D NA) [facility] Start: 1994 Colonoscopy COLONOSCOPY [facility] Start: 1994 COLORECTAL CANCER SCREENING COLORECTAL CANCER SCREENING [facility] Start: [address] COLONOGRAPHY [facility] Start: 1994 DIABETES SCREEN DIABETES SCREEN [facility] Start: 1994 FECAL OCCULT BLOOD FECAL OCCULT BLOO D [facility] Start: 1994 LIPID SCREEN LIPID SCREEN [facility] Start: 1994 SIGMOIDOSCOPY SIGMOIDOSCOPY [facility] Start: 1989 Mammography MAMMOGRAM [facility] Start: 1971 DTaP/Tdap/Td Vaccine s (1 - Tdap) DTaP/Tdap/Td Vaccines (1 - Tdap) [facility] Start: 1968 Urine microalbumin profile DTAP,TDAP,TD (1 - Tdap) [facility] Start: 1967 Diabetes mellitus screening Diabetes Screening [facility] Start: 1967 HEPATITIS C SCREENING HEPATITIS C [facility] Start: 1967 Hepatitis C screening Hepatitis C [facility] Start: 1961 Adult depression screening assessment DEPRESSION SCREENING [facility] Start: 1954 COVID-19 VACCINE (1) COVID-19 VACCIN E (1) [facility] Start: 01-01-1950 COVID-19 Vaccine (#1) COVID-19 Vacci ne (#1) [facility] Start: 1949 Lipid panel Lipid Panel [facility] Start: 1949 Medicare Annual Wellness Visit Medicare Annual Wellness Visit (AWV) [facility] Start: 1949 Screening for malign ant neoplasm of colon [facility] Start: 1949 Screening for osteoporosis Bone Density Scan [facility] ECG 12 Lead ECG 12 Lead ECG Routine Paroxysmal atrial fibrillation (Multi) 01/29/2024 10:42 AM EDT [facility] Service Area Work Phone: Lipid 1996 panel - Serum or Plasma Lipid panel Lab Routine Medicare annual wellness visit, subsequent Benign essential hypertension (CMS/HCC) Mixed hyperlipidemia (CMS/HCC) Ordered: 09/07/2024 [facility] Healthcare Work Phone: Comment on above: Ordered: 09/07/2024 Patient Education Hemorrhoids Di verticulosis [facility] Work Phone: [facility] Immun[facility] Immunization Date Immunization Notes Care Provider Radha cook 04-11-2020 influenza, high dose seasonal, preservative-free Danish Olguin MD Work Phone: [facility] 250 DO Work Phone: 04-11-2020 Influenza, High-dose Seasonal, Quadrivalent, Preservative Free Rosalva TORRE Work Phone: [facility] 04-11-2020 influenza virus vaccine, unspecified formulation Danish Olguin MD Work Phone: [facility] Work Phone: 09-14-2019 Kenalog -40 mg Bandar Bales Other [place] [employer] Other 05-18-2018 Durolane Bandar Bales Other [place] [employer] Other 04-13-2018 Kenalog -40 mg Bandar Bales Other [place] [employer] Other 03-13-2018 influenza virus vaccine, unspecified formulation Danish Olguin MD Work Phone: [facility] 250 DO Work Phone: 06-04-2017 influenza virus vaccine, unspecified formulation Danish Olguin MD Work Phone: [facility] 250 DO Work Phone: 04-14-2017 influenza, high dose seasonal, preservative-free Danish Olguin MD Work Phone: [facility] 250 DO Work Phone: 04-14-2017 Influenza, High-dose Seasonal, Quadrivalent, Preservative Free Rosalva TORRE Work Phone: [facility] 03-25-2017 Kenalog -40 mg Bandar Bales Other [employer] Other 03-25-2017 Euflexxa Bandar Bales Other [employer] Other 03-18-2017 Euflexxa Bandar Bales Other [place] [employer] Other 03-11-2017 Euflexxa Bandar Bales Other [place] [employer] Other 08-04-2016 pneumococcal polysaccharide vaccine, 23 valent Danish Olguin MD Work Phone: [facility] [address] DO Work Phone: Payers Date Payer Category Payer Self-pay [id number] 2022 Medicare (Managed Care) [facility] [id number] 2021 Unknown ANTHEM BLUE CROS S AND BLUE SHIELD ANTHEM MEDIBLUE O [id number] 2021-Present [phone] [id number] [place] [address] [facility] [place] [id number]. 2.7.3.833152.315 2020 Medicare [id number] 2018 Unknown 1959 Medicare [id number] 2.16.840.1.912015.19 1949 Unknown [id number] 2.16.840.1.716869.3.579. 2.355 1949 Unknown [id number] 2.16.840.1.083114.3.579. 2.355 1949 Unknown [id number] 2.16.840.1.005093.3.579. 2.356 1949 Unknown [id number] 2.16.840.1.545152.3.579. 2.356 1949 Unknown [id number] 2.16.840.1.688058.3.579. 2.593 1949 Unknown [id number] 2.16.840.1.532439.3.579. 2.593 1949 Unknown [id number] 2.16.840.1.396812.3.579. 2.593 1949 Unknown [id number] 2.16.840.1.532740.3.579. 2.593 1949 Unknown [id number] 2.16.840.1.181318.3.579. 2.593 1949 Unknown [id number] 2.16.840.1.646406.3.579. 2.593 1949 Unknown [id number] 2.16.840.1.866920.3.579. 2.593 1949 Unknown [id number] 2.16.840.1.841921.3.579. 2.593 1949 Unknown [id number] 2.16.840.1.483347.3.579. 2.593 1949 Unknown [id number] 2.16.840.1.296062.3.579. 2.593 1949 Unknown [id number] 2.16.840.1.696830.3.579. 2.593 1949 Unknown [id number] 2.16.840.1.557167.3.579. 2.593 1949 Unknown [id number] 2.16.840.1.550867.3.579. 2.593 1949 Unknown [id number] 2.16.840.1.674776.3.579. 2.593 1949 Unknown [id number] 2.16.840.1.534526.3.579. 2.593 1949 Unknown [id number] 2.16.840.1.402423.3.579. 2.727 1949 Unknown [id number] 2.16.840.1.030832.3.579. 2.727 1949 Unknown [id number] 2.16.840.1.623034.3.579. 2.727 1949 Unknown [id number] 2.16.840.1.093822.3.579. 2.1244 1949 Unknown [id number] 2.16.840.1.859042.3.579. 2.1244 1949 Unknown [id number] 2.16.840.1.418858.3.579. 2.1244 1949 Unknown [id number] 2.16.840.1.004313.3.579. 2.1259 1949 Unknown [id number] 2.16.840.1.944865.3.579. 2.1259 1949 Unknown [id number] 2.16.840.1.905208.3.579. 2.1259 1949 Unknown [id number] 2.16.840.1.639781.3.579. 2.1259 1949 Unknown [id number] 2.16.840.1.340258.3.579. 2.1259 1949 Unknown [id number] 2.16.840.1.213374.3.579. 2.1259 1949 Unknown [id number] 2.16.840.1.801696.3.579. 2.1259 Medicare [id number] Medicare Medicare Rehab-IP Part A [id number] Private Health Insurance [employer] [facility] PFFS M [id number] Private Health Insurance Humana [facility] [id number] Unknown [id number] Unknown HCAP/HFA/FAP Active [id number] Unknown [id number] 2.16.840.1.911467.3.579. 2.531 Unknown [id number] 2.16.840.1.681477.3.579. 2.531 Unknown [id number] 2.16.840.1.124477.3.579. 2.531 Unknown [id number] 2.16.840.1.816135.3.579. 2.531 Social History Date Type Detail Facility Start: 04-06-2023 End: 06-05-2023 No alcohol use No alcohol use [facility] Work Phone: Comment on above: quit 1970; Start: 10-16-2021 End: 09-08-2024 Tobacco smoking status NHIS Ex-smoker [facility] Start: 10-16-2021 End: 01-01-2023 Tobacco use and exposure Smokeless tobacco non-user [facility] Start: 1950 Sex Assigned At Not on file [facility] Start: 10-06-2021 End: 03-28-2024 Exposure to SARS-CoV-2 (event) Not sure [facility] Start: 04-06-2023 End: 06-05-2023 Sex Assigned At [facility] Start: 1950 Sex Assigned At Female F [facility] Tobacco smoking status No Smokin g Status Entered [facility] Start: 08-01-2022 End: 06-05-2023 Tobacco smoking status NHIS Never smoked tobacco (finding) [facility] Start: 07-02-2023 End: 09-07-2024 Alcohol intake Lifetime non-drinker (finding) [facility] Work Phone: History of tobacco use Current smoker [facility] Work Phone: History of tobacco use Cigarette Smoker [facility] Work Phone: History of tobacco use Passive smoker [facility] Within the last year , have you been afraid of your partner or ex-partner? No [facility] Work Phone: Do you belong to any clubs or organizations such as zoroastrianism groups, unions, [employer]s [employer] or athletic groups, or school groups? Yes [facility] Are you now , , , , never or living with a partner? [facility] How often to you hav e a drink containing alcohol? Never [facility] How many standard dr inks containing alcohol do you have on a typical day? Patient does not drink [facility] Do you feel stress - tense, restless, nervous, or anxious, or unable to sleep at night because your mind is troubled all the time - these days [OSQ] Not at all [facility] (I/We) worried wheth er (my/our) food would run out before (I/we) got money to buy more. Never true [facility] Start: 09-02-2024 End: 09-08-2024 Sex Female (finding) [facility] Medical Equipment Procedure Code Equipment Code Equipment Origin al Text Equipment Identifier Dates Fusion, spine, lumbar, XLIF XLIF 3 LEVEL MAS REDUCTION FDA Start: 08-21-2020 Fusion, spine, lumbar, XLIF Bone-screw internal spinal fixation system, non-sterile ()[id number] FDA Start: 08-21-2020 Fusion, spine, lumbar, XLIF Bone-screw internal spinal fixation system, non-sterile ()[id number] FDA Start: 08-21-2020 Fusion, spine, lumbar, XLIF Bone-screw internal spinal fixation system, non-sterile ()[id number] FDA Start: 08-21-2020 Fusion, spine, lumbar, XLIF Spinal fusion graft kit ()[id number] FDA Start: 08-21-2020 Fusion, spine, lumbar, XLIF Bone-screw internal spinal fixation system, non-sterile ()[id number] FDA Start: 08-21-2020 Fusion, spine, lumbar, XLIF Spinal fusion graft kit ()[id number] FDA Start: 08-21-2020 Fusion, spine, lumbar, XLIF Bone matrix implant, human-derived ()[id number] FDA Start: 08-21-2020 Fusion, spine, lumbar, XLIF Metallic spinal fusion cage, non-sterile ()[id number] FDA Start: 08-21-2020 Fusion, spine, lumbar, XLIF Metallic spinal fusion cage, non-sterile ()[id number] FDA Start: 08-21-2020 Fusion, spine, lumbar, XLIF Metallic spinal fusion cage, non-sterile ()[id number] FDA Start: 08-21-2020 Fusion, spine, lumbar, XLIF Bone-screw internal spinal fixation system, non-sterile ()[id number] FDA Start: 08-21-2020 Fusion, spine, lumbar, XLIF Bone-screw internal spinal fixation system, non-sterile ()[id number] FDA Start: 08-21-2020 Fusion, spine, lumbar, XLIF XLIF 3 LEVEL MAS REDUCTION FDA Start: 08-21-2020 Fusion, spine, lumbar, XLIF XLIF 3 LEVEL MAS REDUCTION FDA Start: 08-21-2020 Fusion, spine, lumbar, XLIF XLIF 3 LEVEL MAS REDUCTION FDA Start: 08-21-2020 Fusion, spine, lumbar, XLIF XLIF 3 LEVEL MAS REDUCTION FDA Start: 08-21-2020 Fusion, spine, lumbar, XLIF XLIF 3 LEVEL MAS REDUCTION FDA Start: 08-21-2020 Fusion, spine, lumbar, XLIF XLIF 3 LEVEL MAS REDUCTION FDA Start: 08-21-2020 Fusion, spine, lumbar, XLIF XLIF 3 LEVEL MAS REDUCTION FDA Start: 08-21-2020 Fusion, spine, lumbar, XLIF XLIF 3 LEVEL MAS REDUCTION FDA Start: 08-21-2020 Arthroplasty, hip, total, anterior approach HEAD BIOLOX CERAMIC 32/+3.5 FDA Start: 08-13-2017 Arthroplasty, hip, total, anterior approach HIP LEVEL 3 FDA Start: 08-13-2017 Arthroplasty, hip, total, anterior approach LINER VIVACIT-E 32MM SIZE GG FDA Start: 08-13-2017 Arthroplasty, hip, total, anterior approach SCREW BONE 6.5MM X 50MM FDA Start: 08-13-2017 Arthroplasty, hip, total, anterior approach SHELL TM 48MM SIZE GG FDA Start: 08-13-2017 Arthroplasty, hip, total, anterior approach STEM HIP FITMORE UNCEMENTED FDA Start: 08-13-2017 Arthroplasty, hip, total, anterior approach HEAD BIOLOX CERAMIC 32/+3.5 FDA Start: 08-13-2017 Arthroplasty, hip, total, anterior approach HIP LEVEL 3 FDA Start: 08-13-2017 Arthroplasty, hip, total, anterior approach LINER VIVACIT-E 32MM SIZE GG FDA Start: 08-13-2017 Arthroplasty, hip, total, anterior approach SCREW BONE 6.5MM X 50MM FDA Start: 08-13-2017 Arthroplasty, hip, total, anterior approach SHELL TM 48MM SIZE GG FDA Start: 08-13-2017 Arthroplasty, hip, total, anterior approach STEM HIP FITMORE UNCEMENTED FDA Start: 08-13-2017 Arthroplasty, hip, total, anterior approach HEAD BIOLOX CERAMIC 32/+3.5 FDA Start: 08-13-2017 Arthroplasty, hip, total, anterior approach HIP LEVEL 3 FDA Start: 08-13-2017 Arthroplasty, hip, total, anterior approach LINER VIVACIT-E 32MM SIZE GG FDA Start: 08-13-2017 Arthroplasty, hip, total, anterior approach SCREW BONE 6.5MM X 50MM FDA Start: 08-13-2017 Arthroplasty, hip, total, anterior approach SHELL TM 48MM SIZE GG FDA Start: 08-13-2017 Arthroplasty, hip, total, anterior approach STEM HIP FITMORE UNCEMENTED FDA Start: 08-13-2017 Arthroplasty, hip, total, anterior approach HEAD BIOLOX CERAMIC 32/+3.5 FDA Start: 08-13-2017 Arthroplasty, hip, total, anterior approach HIP LEVEL 3 FDA Start: 08-13-2017 Arthroplasty, hip, total, anterior approach LINER VIVACIT-E 32MM SIZE GG FDA Start: 08-13-2017 Arthroplasty, hip, total, anterior approach SCREW BONE 6.5MM X 50MM FDA Start: 08-13-2017 Arthroplasty, hip, total, anterior approach SHELL TM 48MM SIZE GG FDA Start: 08-13-2017 Arthroplasty, hip, total, anterior approach STEM HIP FITMORE UNCEMENTED FDA Start: 08-13-2017 Arthroplasty, hip, total, anterior approach HEAD BIOLOX CERAMIC 32/+3.5 FDA Start: 08-13-2017 Arthroplasty, hip, total, anterior approach HIP LEVEL 3 FDA Start: 08-13-2017 Arthroplasty, hip, total, anterior approach LINER VIVACIT-E 32MM SIZE GG FDA Start: 08-13-2017 Arthroplasty, hip, total, anterior approach SCREW BONE 6.5MM X 50MM FDA Start: 08-13-2017 Arthroplasty, hip, total, anterior approach SHELL TM 48MM SIZE GG FDA Start: 08-13-2017 Arthroplasty, hip, total, anterior approach STEM HIP FITMORE UNCEMENTED FDA Start: 08-13-2017 Arthroplasty, hip, total, anterior approach HEAD BIOLOX CERAMIC 32/+3.5 FDA Start: 08-13-2017 Arthroplasty, hip, total, anterior approach HIP LEVEL 3 FDA Start: 08-13-2017 Arthroplasty, hip, total, anterior approach LINER VIVACIT-E 32MM SIZE GG FDA Start: 08-13-2017 Arthroplasty, hip, total, anterior approach SCREW BONE 6.5MM X 50MM FDA Start: 08-13-2017 Arthroplasty, hip, total, anterior approach SHELL TM 48MM SIZE GG FDA Start: 08-13-2017 Arthroplasty, hip, total, anterior approach STEM HIP FITMORE UNCEMENTED FDA Start: 08-13-2017 Arthroplasty, hip, total, anterior approach HEAD BIOLOX CERAMIC 32/+3.5 FDA Start: 08-13-2017 Arthroplasty, hip, total, anterior approach HIP LEVEL 3 FDA Start: 08-13-2017 Arthroplasty, hip, total, anterior approach LINER VIVACIT-E 32MM SIZE GG FDA Start: 08-13-2017 Arthroplasty, hip, total, anterior approach SCREW BONE 6.5MM X 50MM FDA Start: 08-13-2017 Arthroplasty, hip, total, anterior approach SHELL TM 48MM SIZE GG FDA Start: 08-13-2017 Arthroplasty, hip, total, anterior approach STEM HIP FITMORE UNCEMENTED FDA Start: 08-13-2017 Arthroplasty, hip, total, anterior approach HEAD BIOLOX CERAMIC 32/+3.5 FDA Start: 08-13-2017 Arthroplasty, hip, total, anterior approach HIP LEVEL 3 FDA Start: 08-13-2017 Arthroplasty, hip, total, anterior approach LINER VIVACIT-E 32MM SIZE GG FDA Start: 08-13-2017 Arthroplasty, hip, total, anterior approach SCREW BONE 6.5MM X 50MM FDA Start: 08-13-2017 Arthroplasty, hip, total, anterior approach SHELL TM 48MM SIZE GG FDA Start: 08-13-2017 Arthroplasty, hip, total, anterior approach STEM HIP FITMORE UNCEMENTED FDA Start: 08-13-2017 Arthroplasty, hip, total, anterior approach HEAD BIOLOX CERAMIC 32/+3.5 FDA Start: 08-13-2017 Arthroplasty, hip, total, anterior approach HIP LEVEL 3 FDA Start: 08-13-2017 Arthroplasty, hip, total, anterior approach LINER VIVACIT-E 32MM SIZE GG FDA Start: 08-13-2017 Arthroplasty, hip, total, anterior approach SCREW BONE 6.5MM X 50MM FDA Start: 08-13-2017 Arthroplasty, hip, total, anterior approach SHELL TM 48MM SIZE GG FDA Start: 08-13-2017 Arthroplasty, hip, total, anterior approach STEM HIP FITMORE UNCEMENTED FDA Start: 08-13-2017 Spinal fixation plate, non-bioabsorbable ()[id number] FDA Start: 02-14-2020 Bone-screw inter nal spinal fixation system, non-sterile ()[id number] FDA Start: 02-14-2020 Bone-screw inter nal spinal fixation system, non-sterile ()[id number] FDA Start: 02-14-2020 Intervertebral-b rosa internal spinal fixation system ()[id number] FDA Start: 02-14-2020 Goals Date Patient Goal Desired Activity /State Functional Status Date Assessment Result Facility 09-22-2022 Functional Status No [facility] Clinical Notes 04-11-2021 to 09-08-2024 NICHO Gamez - 09/07/2024 1:30 PM EST Note Date & Type Note Facility 09-08-2024 Procedure note [facility] enter 09-08-2024 History and physi francisco note [facility] enter 09-07-2024 History of Present illness Narrative Formatting of this note is different fro m the original. Images from the original note were not included. HPI Sinusitis Additional comments: She was seen at / for her sinues on Thursday - admits runny nose with clear mucus, sinus pressure, left ear pain, cough (improving). At urgent care they rx'd albuterol inhaler and a medrol dose [place]. Has colonoscopy scheduled for tomorrow Last edited by Denice Pérez LPN on 09/07/2024 1:45 PM. Subjective Patient ID: Elicia Dent is a 74 y.o. female who presents for Medicare Wellness Visit. Does not feel that the sinus pressure has improved, but does feel that the rhinorrhea has improved. Sore throat started last Thursday, symptoms progressed from there. Sinusitis The problem has been gradually improving since onset. Associated symptoms include coughing, ear pain and sinus pressure. Pertinent negatives include no chills, congestion, shortness of breath or sore throat. Medicare Wellness Over the past 2 weeks, how often have you been bothered by any of the following problems? Little interest or pleasure in doing things: Not at all Feeling down, depressed, or hopeless: Not at all Patient Health Questionnaire-2 Score: 0 Over the past 2 weeks, how often have you been bothered by any of the following problems? Trouble falling or staying asleep, or sleeping too much: Not at all Feeling tired or having little energy: Not at all Poor appetite or overeating: Not at all Feeling bad about yourself - or that you are a failure or have let yourself or your family down: Not at all Trouble concentrating on things, such as reading the newspaper or watching television: Not at all Moving or speaking so slowly that other people could have noticed? Or the opposite - being so fidgety or restless that you have been moving around a lot more than usual.: Not at all Thoughts that you would be better off or hurting yourself in some way: Not at all Patient Health Questionnaire-9 Score: 0 Grady Fall Risk History of Falling, Immediate or Within 3 Months: No Health Risk Assessment Form Do you need help eating, bathing, using the toilet, dressing, or getting around your home?: No Can you prepare your own meals?: Yes Can you do your own housework without help?: Yes Can you shop for groceries or clothes without help?: Yes Do you exercise for about 20 minutes 3 or more days a week?: No How confident are you that you can control and manage most of your health problems?: Very confident Can you mange your money, credit cards and accounts, pay bills and taxes?: Yes Vision Screening: Yes, no gross abnormalities Hearing Screening: Yes, no gross abnormalities Cognitive Screening Self Assessment: No overt cognitive deficiency is apparent by direct observation Three Word Registration: Village, Kitchen, Baby Clock Drawing: Normal Clock - 2 Three Word Recall: 2/3 words correct - 2 Total Score (0-5 Points): 4 Pain Assessment Pain Score: 2 Advance Care Planning Do you have a living will?: Yes Do you have a medical power of real estate attorney?: Yes Current Outpatient Medications on File Prior to Visit Medication Sig Dispense Refill albuterol HFA 90 mcg/act inhaler Inhale 2 puffs every 4 (four) hours if needed for shortness of breath [DISCONTINUED] methylPREDNISolone (Medrol Dospak) 4 MG tablets Take 4 mg by mouth See administration instructions amoxicillin (Amoxil) 500 MG capsule To take 4 pills by mouth 1 hour prior to procedure and for pills postprocedure by mouth 8 capsule 2 aspirin 81 MG EC tablet Take 81 mg by mouth. 2 times a week biotin 10 MG tablet Take 10 mg by mouth 1 (one) time each day. calcium carbonate 1500 (600 Ca) MG tablet Take 600 mg by mouth in the morning. cholecalciferol (Vitamin D-3) 25 MCG (1000 UT) capsule Take 1,000 Units by mouth in the morning. furosemide (Lasix) 20 MG tablet Take 20 mg by mouth Daily as needed (Leg Swelling) gabapentin (Neurontin) 300 MG capsule Take 1 capsule (300 mg) by mouth in the morning and 1 capsule (300 mg) at noon and 1 capsule (300 mg) in the evening and 1 capsule (300 mg) before bedtime. 400 capsule 3 Glucosamine-Chondroitin (GLUCOSAMINE CHONDR COMPLEX PO) 1 (one) time each day. Magnesium 400 MG capsule Take 400 mg by mouth 1 (one) time each day. metroNIDAZOLE (Metrogel) 1 % gel Apply topically Daily 60 g 2 omeprazole (PriLOSEC) [address] capsule TAKE 1 CAPSULE BY MOUTH IN THE MORNING 90 capsule 3 polyethylene glycol, PEG, 3350 (MiraLax) 17 GM/SCOOP powder Take 17 g by mouth in the morning. Vit-Fe Fumarate-FA ( Vitamin) 27-0.8 MG tablet 1 (one) time each day at the same time. propranolol (Inderal) 10 MG tablet Take 1 tablet (10 mg) by mouth Daily 90 tablet 3 spironolactone (Aldactone) 25 MG tablet TAKE 1 TABLET BY MOUTH IN THE MORNING 90 tablet 3 warfarin (Coumadin) 1 MG tablet Take 1 mg by mouth in the evening. warfarin (Coumadin) 2.5 MG tablet Take 1 tablet (2.5 mg) by mouth at bedtime 100 tablet 3 zinc 50 MG tablet Take 1 capsule by mouth 1 (one) time each day. No current facility-administered medications on file prior to visit. I have reviewed and reconciled the history and medication list with the patient today. Allergies Allergen Reactions Other Hallucinations Other Reaction(s): Hallucination Other Reaction(s): Other: See Comments Acetaminophen Hallucinations Escitalopram Unknown Other Reaction(s): Other Indomethacin Unknown Lisinopril Cough Morphine Nausea Only Propoxyphene Other Reaction(s): hallucinations Tapentadol Other Reaction(s): confusion Tapentadol Hcl Other Reaction(s): confusion Social History Tobacco Use Smoking status: Former Types: Cigarettes Passive exposure: Past Smokeless tobacco: Never Vaping Use Vaping status: Never Used Substance Use Topics Alcohol use: Never Drug use: Never Family History Problem Relation Name Age of Onset Hypertension Mother Cancer Father Other (htn) Sister Cancer Sibling Past Medical History: Diagnosis Date Asthma (CMS/HCC) Atrial fibrillation (CMS/HCC) Lewis esophagus Breast cancer (CMS/HCC) Chicken pox Chronic kidney disease Epistaxis Ganglion cyst GERD (gastroesophageal reflux disease) History of being hospitalized acute viral pneumonia secondary to Covid 19 (06/20/2021-06/21/2021) Hypertension (CMS/HCC) Macular degeneration Migraine headache (CMS/HCC) Osteoarthritis Pneumonia due to COVID-19 virus Renal hypertension (CMS/HCC) Past Surgical History: Procedure Laterality Date APPENDECTOMY 1977 CARPAL TUNNEL RELEASE Bilateral 1998 CHOLECYSTECTOMY CHOLECYSTECTOMY 2003 COLONOSCOPY Bilateral COLONOSCOPY 07/21/2021 with egd DILATION AND CURETTAGE 1974 EGD 05/02/2020 HYSTERECTOMY 1995 KNEE SURGERY 2000 KNEE SURGERY 2016 LAMINECTOMY 08/21/2020 LUMBAR LAMINECTOMY 08/21/2020 L2-L5 fusion and decompressive laminectomy LUMBAR TRANSFORAMINAL EPIDURAL STEROID INJECTION 11/12/2021 [place] BREAST REDUCTION 2001 [place] EDG TRANSORAL BIOPSY SINGLE/MULTIPLE 06/02/2020 TONSILLECTOMY 1959 TOTAL HIP ARTHROPLASTY 05/19/2016 Visit Vitals BP 126/72 Pulse (!) 49 Temp 97.2 F Resp 16 Ht 5' 5 Wt 159 lb 12.8 oz SpO2 97% BMI 26.59 kg/m Smoking Status Former BSA 1.82 m Review of Systems Constitutional: Negative for chills, fatigue and fever. HENT: Positive for ear pain, rhinorrhea and sinus pressure. Negative for congestion and sore throat. Eyes: Negative for pain, discharge and visual disturbance. Respiratory: Positive for cough. Negative for shortness of breath and wheezing. Cardiovascular: Negative for chest pain, palpitations and leg swelling. Gastrointestinal: Negative for abdominal pain, constipation, diarrhea, nausea and vomiting. Genitourinary: Negative for difficulty urinating, dysuria and frequency. Musculoskeletal: Negative for arthralgias and back pain. Skin: Negative for rash. Neurological: Negative for dizziness and numbness. Psychiatric/Behavioral: Negative for sleep disturbance. The patient is not nervous/anxious. Objective Physical Exam Constitutional: General: She is not in acute distress. Appearance: Normal appearance. She is well-developed. HENT: Head: Normocephalic and atraumatic. Right Ear: Tympanic membrane and ear canal normal. Left Ear: Tympanic membrane and ear canal normal. Nose: Nose normal. Mouth/Throat: Mouth: Mucous membranes are moist. Pharynx: No posterior oropharyngeal erythema. Eyes: General: No scleral icterus. Extraocular Movements: Extraocular movements intact. Conjunctiva/sclera: Conjunctivae normal. Pupils: Pupils are equal, round, and reactive to light. Neck: Vascular: No carotid bruit. Cardiovascular: Rate and Rhythm: Regular rhythm. Bradycardia present. Heart sounds: Normal heart sounds. No murmur heard. Pulmonary: Effort: Pulmonary effort is normal. No respiratory distress. Breath sounds: Normal breath sounds. No wheezing, rhonchi or rales. Abdominal: General: Bowel sounds are normal. There is no distension. Palpations: Abdomen is soft. Tenderness: There is no abdominal tenderness. There is no guarding. Musculoskeletal: General: No swelling or deformity. Normal range of motion. Cervical back: Normal range of motion and neck supple. No tenderness. Comments: Right lower leg strength 4/5. Tender over right medial aspect of lower leg Skin: General: Skin is warm and dry. Capillary Refill: Capillary refill takes less than 2 seconds. Findings: No rash. Neurological: General: No focal deficit present. Mental Status: She is alert and oriented to person, place, and time. Cranial Nerves: No cranial nerve deficit. Sensory: No sensory deficit. Motor: No weakness. Gait: Gait normal. Deep Tendon Reflexes: Reflexes normal. Psychiatric: Mood and Affect: Mood normal. Behavior: Behavior normal. Thought Content: Thought content normal. Judgment: Judgment normal. Assessment & Plan 1. Medicare annual wellness visit, subsequent (Primary) ,Reviewed all relevant preventative screenings with the patient in detail. Medicare Wellness form completed and will be scanned into patient's chart. All needed testing was ordered. Will continue with yearly Medicare Wellness exams. - Lipid panel 2. ACP (advance care planning) Patient willing to discuss ACP. Pt has Living Will and DPOA in place. 3. Cervical spondylosis with myelopathy This is a chronic medical condition that is stable since last assessment. No changes in treatment are suggested at this time. Continue Gabapentin as prescribed. 4. Postoperative pain This is a chronic medical condition that is stable since last assessment. No changes in treatment are suggested at this time. Continue Gabapentin as prescribed. 5. Right leg weakness This is a chronic medical condition that is stable since last assessment. No changes in treatment are suggested at this time. 6. Sleep apnea with use of continuous positive airway pressure (CPAP) Patient is compliant with CPAP usage and perceives benefit from treatment. Treatment has been effective in controlling the patient's symptoms of Sleep Apnea. Will continue to monitor with routine follow up appointments. 7. Status post lumbar spine operation This is a chronic medical condition that is stable since last assessment. No changes in treatment are suggested at this time. Continue Gabapentin as prescribed. 8. Benign essential hypertension (CMS/HCC) Patient's blood pressure is currently well controlled. Continue with current medications and I will continue to monitor. Goal BP remains less than 130/80. - Lipid panel 9. Paroxysmal atrial fibrillation (CMS/HCC) The patient is seeing a medical screener for this condition, treatment is deferred to that specialist. Correspondence from that specialist and any available testing were reviewed during today's visit. 10. Peripheral vascular disease ([facility]) This is a chronic medical condition that is stable since last assessment. No changes in treatment are suggested at this time. 11. Tachycardia The patient is seeing a medical screener for this condition, treatment is deferred to that specialist. Correspondence from that specialist and any available testing were reviewed during today's visit. 12. Lewis's esophagus without dysplasia This is a chronic medical condition that is stable since last assessment. No changes in treatment are suggested at this time. Continue Omeprazole. 13. Gastroesophageal reflux disease without esophagitis This is a chronic medical condition that is stable since last assessment. No changes in treatment are suggested at this time. Continue Omeprazole. 14. Irritable bowel syndrome with constipation This is a chronic medical condition that is stable since last assessment. No changes in treatment are suggested at this time. 15. Slow transit constipation This is a chronic medical condition that is stable since last assessment. No changes in treatment are suggested at this time. 16. Stage 3b chronic kidney disease (HCC) ([facility] [place]) This is a chronic medical condition that is stable since last assessment. No changes in treatment are suggested at this time. Will continue to monitor with routine labs. 17. Contracture, right ankle This is a chronic medical condition that is stable since last assessment. No changes in treatment are suggested at this time. 18. Edema of right lower extremity This is a chronic medical condition that is stable since last assessment. No changes in treatment are suggested at this time. Continue Furosemide. 19. Chronic pain of both knees This is a chronic medical condition that is stable since last assessment. No changes in treatment are suggested at this time. 20. Kyphoscoliosis and scoliosis This is a chronic medical condition that is stable since last assessment. No changes in treatment are suggested at this time. 21. Osteoarthritis of cervical spine, unspecified spinal osteoarthritis complication status This is a chronic medical condition that is stable since last assessment. No changes in treatment are suggested at this time. Continue Gabapentin as prescribed. 22. Primary osteoarthritis of both knees This is a chronic medical condition that is stable since last assessment. No changes in treatment are suggested at this time. 23. Podagra This is a chronic medical condition that is stable since last assessment. No changes in treatment are suggested at this time. 24. Primary osteoarthritis involving multiple joints This is a chronic medical condition that is stable since last assessment. No changes in treatment are suggested at this time. 25. Primary osteoarthritis of left hip The patient is seeing a medical screener for this condition, treatment is deferred to that specialist. Correspondence from that specialist and any available testing were reviewed during today's visit. 26. Spasm of thoracic back muscle This is a chronic medical condition that is stable since last assessment. No changes in treatment are suggested at this time. 27. Spinal stenosis of lumbar region with neurogenic claudication This is a chronic medical condition that is stable since last assessment. No changes in treatment are suggested at this time. Continue Gabapentin as prescribed. 28. Thoracic arthritis This is a chronic medical condition that is stable since last assessment. No changes in treatment are suggested at this time. 29. IGT (impaired glucose tolerance) This is a chronic medical condition that is stable since last assessment. No changes in treatment are suggested at this time. Will continue to monitor with routine labs. 30. Other primary ovarian failure This is a chronic medical condition that is stable since last assessment. No changes in treatment are suggested at this time. Will continue to monitor with routine preventative screening tests. 31. Anticoagulated This is a chronic medical condition that is stable since last assessment. No changes in treatment are suggested at this time. 32. At high risk for falls This is a chronic medical condition that is stable since last assessment. No recent falls. 33. Dependence on other enabling machines and devices Patient is compliant with CPAP usage and perceives benefit from treatment. Treatment has been effective in controlling the patient's symptoms of Sleep Apnea. Will continue to monitor with routine follow up appointments. 34. Former cigarette smoker The patient was counseled on the importance of maintaining cigarette smoking abstinence. The patient continues to refrain from smoking and is committed to avoiding tobacco use. 35. History of left hip replacement The patient is seeing a medical screener for this condition, treatment is deferred to that specialist. Correspondence from that specialist and any available testing were reviewed during today's visit. 36. Hypokalemia This is a chronic medical condition that is stable since last assessment. Normal on most recent labs. Will continue to monitor. 37. Low serum prealbumin This is a chronic medical condition that is stable since last assessment. Continue adequate protein in diet. 38. Mixed hyperlipidemia (CMS/HCC) This is a chronic medical condition that is stable since last assessment. No changes in treatment are suggested at this time. Will continue to monitor with routine labs. - Lipid panel 39. Reactive depression (CMS/HCC) This is a chronic medical condition that is stable since last assessment. No changes in treatment are suggested at this time. 40. Rosacea This is a chronic medical condition that is stable since last assessment. No changes in treatment are suggested at this time. 41. Tinnitus of both ears This is a chronic medical condition that is stable since last assessment. No changes in treatment are suggested at this time. 42. Tremor This is a chronic medical condition that is stable since last assessment. No changes in treatment are suggested at this time. Follow up in about 3 months (around 12/05/2024) for Medication Follow Up. Rosalva ORTEGA PA-C documented in this encounter [facility] 09-02-2024 Evaluation note Diagnosis Onset Date Resolution Viral bronchitis acute September 02, 2024 9:46am [facility] Work Phone: [phone] History of Present illness Narrative* NICHO Gamez - 07/26/2024 11:30 AM EST Images from the original note were not included. Subjective Patient ID: Elicia Dent is a 74 y.o. female who presents to discuss medications. Elicia is present today to discuss medications. She ordered Ring Clear for the tinnitus in her ears but wanted to make sure she was ok to take it with the current meds she is on. She has not started it yet. is unable to sing two verses without stopping to breath for a bit. Is able to get up 3/4 a flight of stairs, but needed to stop to rest, this was months ago. Does not exercise routinely, admits mostly does quilting and is pretty sedentary. Used to go to [facility], was prone to overdoing it. Current Outpatient Medications on File Prior to Visit Medication Sig Dispense Refill amoxicillin (Amoxil) 500 MG capsule To take 4 pills by mouth 1 hour prior to procedure and for pills postprocedure by mouth 8 capsule 2 aspirin 81 MG EC tablet Take 81 mg by mouth. 2 times a week biotin 10 MG tablet Take 10 mg by mouth 1 (one) time each day. calcium carbonate 1500 (600 Ca) MG tablet Take 600 mg by mouth in the morning. cholecalciferol (Vitamin D-3) 25 MCG (1000 UT) capsule Take 1,000 Units by mouth in the morning. furosemide (Lasix) 20 MG tablet Take 20 mg by mouth Daily as needed (Leg Swelling) gabapentin (Neurontin) 300 MG capsule Take 1 capsule (300 mg) by mouth in the morning and 1 capsule(300 mg) at noon and 1 capsule (300 mg) in the evening and 1 capsule (300 mg) before bedtime. 400 capsule 3 Glucosamine-Chondroitin (GLUCOSAMINE CHONDR COMPLEX PO) 1 (one) time each day. Magnesium 400 MG capsule Take 400 mg by mouth 1 (one) time each day. metroNIDAZOLE (Metrogel) 1 % gel Apply topically Daily 60 g 2 omeprazole (PriLOSEC) [address] capsule TAKE 1 CAPSULE BY MOUTH IN THE MORNING 90 capsule 3 polyethylene glycol, PEG, 3350 (MiraLax) 17 GM/SCOOP powder Take 17 g by mouth in the morning. Vit-Fe Fumarate-FA ( Vitamin) 27-0.8 MG tablet 1 (one) time each day at the same time. propranolol (Inderal) 10 MG tablet Take 1 tablet (10 mg) by mouth Daily 90 tablet 3 spironolactone (Aldactone) 25 MG tablet TAKE 1 TABLET BY MOUTH IN THE MORNING 90 tablet 3 warfarin (Coumadin) 1 MG tablet Take 1 mg by mouth in the evening. warfarin (Coumadin) 2.5 MG tablet Take 1 tablet (2.5 mg) by mouth at bedtime 100 tablet 3 zinc 50 MG tablet Take 1 capsule by mouth 1 (one) time each day. No current facility-administered medications on file prior to visit. I have reviewed and reconciled the history and medication list with the patient today. Allergies Allergen Reactions Other Hallucinations Other Reaction(s): Hallucination Other Reaction(s): Other: See Comments Acetaminophen Hallucinations Escitalopram Unknown Other Reaction(s): Other Indomethacin Unknown Lisinopril Cough Morphine Nausea Only Propoxyphene Other Reaction(s): hallucinations Tapentadol Other Reaction(s): confusion Tapentadol Hcl Other Reaction(s): confusion Social History Tobacco Use Smoking status: Former Types: Cigarettes Passive exposure: Past Smokeless tobacco: Never Vaping Use Vaping status: Never Used Substance Use Topics Alcohol use: Never Drug use: Never Family History Problem Relation Name Age of Onset Hypertension Mother Cancer Father Other (htn) Sister Cancer Sibling Past Medical History: Diagnosis Date Asthma (CMS/HCC) Atrial fibrillation (CMS/HCC) Lewis esophagus Breast cancer (CMS/HCC) Chicken pox Chronic kidney disease Epistaxis Ganglion cyst GERD (gastroesophageal reflux disease) History of being hospitalized acute viral pneumonia secondary to Covid 19 (06/20/2021-06/21/2021) Hypertension (CMS/HCC) Macular degeneration Migraine headache (CMS/HCC) Osteoarthritis Pneumonia due to COVID-19 virus Renal hypertension (CMS/HCC) Past Surgical History: Procedure Laterality Date APPENDECTOMY 1977 CARPAL TUNNEL RELEASE Bilateral 1998 CHOLECYSTECTOMY CHOLECYSTECTOMY 2003 COLONOSCOPY Bilateral COLONOSCOPY 07/21/2021 with egd DILATION AND CURETTAGE 1974 EGD 05/02/2020 HYSTERECTOMY 1995 KNEE SURGERY 2001 KNEE SURGERY 2016 LAMINECTOMY 08/21/2020 LUMBAR LAMINECTOMY 08/21/2020 L2-L5 fusion and decompressive laminectomy LUMBAR TRANSFORAMINAL EPIDURAL STEROID INJECTION 11/12/2021 [place] BREAST REDUCTION 2001 [place] EDG TRANSORAL BIOPSY SINGLE/MULTIPLE 06/02/2020 TONSILLECTOMY 195 TOTAL HIP ARTHROPLASTY 05/19/2016 Visit Vitals BP 136/78 Pulse 57 Resp 16 Ht 5' 5 Wt 160 lb SpO2 98% BMI 26.63 kg/m Smoking Status Former BSA 1.82 m Review of Systems Constitutional: Negative for chills, fatigue and fever. HENT: Positive for tinnitus. Respiratory: Positive for shortness of breath (Gets out of breath). Negative for cough and wheezing. Cardiovascular: Negative for chest pain, palpitations and leg swelling. Gastrointestinal: Negative for abdominal pain, constipation, diarrhea, nausea and vomiting. Skin: Negative for rash. Objective Physical Exam Constitutional: General: She is not in acute distress. Appearance: Normal appearance. She is well-developed. HENT: Head: Normocephalic and atraumatic. Eyes: General: No scleral icterus. Conjunctiva/sclera: Conjunctivae normal. Cardiovascular: Rate and Rhythm: Normal rate and regular rhythm. Heart sounds: Normal heart sounds. No murmur heard. Pulmonary: Effort: Pulmonary effort is normal. No respiratory distress. Breath sounds: Normal breath sounds. No wheezing, rhonchi or rales. Skin: General: Skin is warm and dry. Neurological: General: No focal deficit present. Mental Status: She is alert and oriented to person, place, and time. Psychiatric: Mood and Affect: Mood normal. Behavior: Behavior normal. Assessment/Plan Diagnoses and all orders for this visit: Tinnitus of both ears Reviewed supplement ingredients. Reviewed potential s/e including flushing or BP change with Niacin. Dosage in the supplement is not high. Encouraged her to take it with food in the mornings. Taking it later in the day with the Vitamin B12 may make it more difficult for her to sleep. She is ok to proceed with the supplement. Advised supplements can take a while to be effective, weeks to a month or two. Benign essential hypertension (CMS/HCC) Patient's blood pressure is currently stable. Continue with current medications and I will continueto monitor. Physical deconditioning Encouraged pt to gradually work on becoming more active. She is losing endurance with being more sedentary. Encouraged her to start by walking on a regular basis. Lungs are clear at this time. No previous chronic lung disease, does have SONIDO, no signs of CHF on exam. Will monitor. Paroxysmal atrial fibrillation The patient is seeing a medical screener for this condition, treatment is deferred to that specialist. Follow up in about 2 months (around 09/23/2024) for Medicare Wellness Visit. [id number] History of Present illness Narrative* NICHO Gamez - 07/04/2024 3:30 PM EST Images from the original note were not included. Subjective Patient ID: Elicia Dent is a 74 y.o. female who presents for lump. Elicia is present today for evaluation of a lump. Admits the lump in the left vagina area that started on Thursday, it was sore and it looked like a pimple. She used some A&D ointment on it and this morning it did rupture and it is not as sore as it was now. Would also like provider to check her left ear, just feels like there is something in the canal. Current Outpatient Medications on File Prior to Visit Medication Sig Dispense Refill amoxicillin (Amoxil) 500 MG capsule To take 4 pills by mouth 1 hour prior to procedure and for pills postprocedure by mouth 8 capsule 2 aspirin 81 MG EC tablet Take 81 mg by mouth. 2 times a week biotin 10 MG tablet Take 10 mg by mouth 1 (one) time each day. calcium carbonate 1500 (600 Ca) MG tablet Take 600 mg by mouth in the morning. cholecalciferol (Vitamin D-3) 25 MCG (1000 UT) capsule Take 1,000 Units by mouth in the morning. furosemide (Lasix) 20 MG tablet Take 20 mg by mouth Daily as needed (Leg Swelling) gabapentin (Neurontin) 300 MG capsule Take 1 capsule (300 mg) by mouth in the morning and 1 capsule(300 mg) at noon and 1 capsule (300 mg) in the evening and 1 capsule (300 mg) before bedtime. 400 capsule 3 Glucosamine-Chondroitin (GLUCOSAMINE CHONDR COMPLEX PO) 1 (one) time each day. Magnesium 400 MG capsule Take 400 mg by mouth 1 (one) time each day. metroNIDAZOLE (Metrogel) 1 % gel Apply topically Daily 60 g 2 omeprazole (PriLOSEC) [address] capsule TAKE 1 CAPSULE BY MOUTH IN THE MORNING 90 capsule 3 polyethylene glycol, PEG, 3350 (MiraLax) 17 GM/SCOOP powder Take 17 g by mouth in the morning. Vit-Fe Fumarate-FA ( Vitamin) 27-0.8 MG tablet 1 (one) time each day at the same time. propranolol (Inderal) 10 MG tablet Take 1 tablet (10 mg) by mouth Daily 90 tablet 3 spironolactone (Aldactone) 25 MG tablet TAKE 1 TABLET BY MOUTH IN THE MORNING 90 tablet 3 warfarin (Coumadin) 1 MG tablet Take 1 mg by mouth in the evening. warfarin (Coumadin) 2.5 MG tablet Take 1 tablet (2.5 mg) by mouth at bedtime 100 tablet 3 zinc 50 MG tablet Take 1 capsule by mouth 1 (one) time each day. No current facility-administered medications on file prior to visit. I have reviewed and reconciled the history and medication list with the patient today. Allergies Allergen Reactions Other Hallucinations Other Reaction(s): Hallucination Other Reaction(s): Other: See Comments Acetaminophen Hallucinations Escitalopram Unknown Other Reaction(s): Other Indomethacin Unknown Lisinopril Cough Morphine Nausea Only Propoxyphene Other Reaction(s): hallucinations Tapentadol Other Reaction(s): confusion Tapentadol Hcl Other Reaction(s): confusion Social History Tobacco Use Smoking status: Former Types: Cigarettes Passive exposure: Past Smokeless tobacco: Never Vaping Use Vaping status: Never Used Substance Use Topics Alcohol use: Never Drug use: Never Family History Problem Relation Name Age of Onset Hypertension Mother Cancer Father Other (htn) Sister Cancer Sibling Past Medical History: Diagnosis Date Asthma (CMS/HCC) Atrial fibrillation (CMS/HCC) Lewis esophagus Breast cancer (CMS/HCC) Chicken pox Chronic kidney disease Epistaxis Ganglion cyst GERD (gastroesophageal reflux disease) History of being hospitalized acute viral pneumonia secondary to Covid 19 (06/20/2021-06/21/2021) Hypertension (CMS/HCC) Macular degeneration Migraine headache (CMS/HCC) Osteoarthritis Pneumonia due to COVID-19 virus Renal hypertension (CMS/HCC) Past Surgical History: Procedure Laterality Date APPENDECTOMY 1977 CARPAL TUNNEL RELEASE Bilateral 1998 CHOLECYSTECTOMY CHOLECYSTECTOMY 2003 COLONOSCOPY Bilateral COLONOSCOPY 07/21/2021 with egd DILATION AND CURETTAGE 1974 EGD 05/02/2020 HYSTERECTOMY 1995 KNEE SURGERY 2000 KNEE SURGERY 2016 LAMINECTOMY 08/21/2020 LUMBAR LAMINECTOMY 08/21/2020 L2-L5 fusion and decompressive laminectomy LUMBAR TRANSFORAMINAL EPIDURAL STEROID INJECTION 11/12/2021 [place] BREAST REDUCTION 2001 [place] EDG TRANSORAL BIOPSY SINGLE/MULTIPLE 06/02/2020 TONSILLECTOMY 1958 TOTAL HIP ARTHROPLASTY 05/19/2016 Visit Vitals BP 144/84 Pulse 61 Resp 16 Ht 5' 5 Wt 160 lb 9.6 oz SpO2 97% BMI 26.73 kg/m Smoking Status Former BSA 1.83 m Review of Systems Constitutional: Negative for chills, fatigue and fever. Respiratory: Negative for cough, shortness of breath and wheezing. Cardiovascular: Negative for chest pain, palpitations and leg swelling. Gastrointestinal: Negative for abdominal pain, constipation, diarrhea, nausea and vomiting. Genitourinary: See HPI Skin: Negative for rash. Objective Physical Exam Constitutional: General: She is not in acute distress. Appearance: Normal appearance. She is well-developed. HENT: Head: Normocephalic and atraumatic. Left Ear: Tympanic membrane and ear canal normal. Eyes: General: No scleral icterus. Conjunctiva/sclera: Conjunctivae normal. Cardiovascular: Rate and Rhythm: Normal rate and regular rhythm. Heart sounds: Normal heart sounds. No murmur heard. Pulmonary: Effort: Pulmonary effort is normal. No respiratory distress. Breath sounds: Normal breath sounds. No wheezing, rhonchi or rales. Genitourinary: Comments: Pinpoint opening at area noted in drawing with mild surrounding erythema, there is a scant amount of purulent drainage on labia in area. Skin: General: Skin is warm and dry. Neurological: General: No focal deficit present. Mental Status: She is alert and oriented to person, place, and time. Psychiatric: Mood and Affect: Mood normal. Behavior: Behavior normal. Assessment/Plan Diagnoses and all orders for this visit: Hair follicle infection - mupirocin (Bactroban) 2 % ointment; Apply topically 3 (three) times a day for 10 days Advised pt that this appears to be an infected hair follicle that the body was able to drain on itsown. Encouraged gentle warm compresses to area daily. Allow warm water in shower to flow over the area. Apply Mupirocin as prescribed. Contact office if the area does not continue to improve. Reassurance given that left ear appears WNL. Follow up in about 3 months (around 09/22/2024) for Medicare Wellness Visit. documented in [facility] encounter[facility] [id number] History of Present illness Narrative* NICHO Gamez - 05/25/2024 1:00 PM EST Images from the original note were not included. Subjective Patient ID: Elicia Dent is a 73 y.o. female who presents for something on eyelid. Elicia is present today for evaluation of something on her eyelid. Admits a small lump in her left eyelid. Last week it was painful but the pain improved for a couple of days but then pain came back again, tearing, hurts when she blinks. She has not tried anything OTC. Did a checklist for Alzheimer's and states you have to have 5 to possibly have it, and she was positive for 4 of them. Current Outpatient Medications on File Prior to Visit Medication Sig Dispense Refill amoxicillin (Amoxil) 500 MG capsule To take 4 pills by mouth 1 hour prior to procedure and for pills postprocedure by mouth 8 capsule 2 aspirin 81 MG EC tablet Take 81 mg by mouth. 2 times a week biotin 10 MG tablet Take 10 mg by mouth 1 (one) time each day. calcium carbonate 1500 (600 Ca) MG tablet Take 600 mg by mouth in the morning. cholecalciferol (Vitamin D-3) 25 MCG (1000 UT) capsule Take 1,000 Units by mouth in the morning. furosemide (Lasix) 20 MG tablet Take 20 mg by mouth Daily as needed (Leg Swelling) gabapentin (Neurontin) 300 MG capsule Take 1 capsule (300 mg) by mouth in the morning and 1 capsule(300 mg) at noon and 1 capsule (300 mg) in the evening and 1 capsule (300 mg) before bedtime. 400 capsule 3 Glucosamine-Chondroitin (GLUCOSAMINE CHONDR COMPLEX PO) 1 (one) time each day. Magnesium 400 MG capsule Take 400 mg by mouth 1 (one) time each day. metroNIDAZOLE (Metrogel) 1 % gel Apply topically Daily 60 g 2 omeprazole (PriLOSEC) [address] capsule TAKE 1 CAPSULE BY MOUTH IN THE MORNING 90 capsule 3 polyethylene glycol, PEG, 3350 (MiraLax) 17 GM/SCOOP powder Take 17 g by mouth in the morning. Vit-Fe Fumarate-FA ( Vitamin) 27-0.8 MG tablet 1 (one) time each day at the same time. propranolol (Inderal) 10 MG tablet Take 1 tablet (10 mg) by mouth Daily 90 tablet 3 spironolactone (Aldactone) 25 MG tablet TAKE 1 TABLET BY MOUTH IN THE MORNING 90 tablet 3 warfarin (Coumadin) 1 MG tablet Take 1 mg by mouth in the evening. warfarin (Coumadin) 2.5 MG tablet Take 1 tablet (2.5 mg) by mouth at bedtime 100 tablet 3 zinc 50 MG tablet Take 1 capsule by mouth 1 (one) time each day. No current facility-administered medications on file prior to visit. I have reviewed and reconciled the history and medication list with the patient today. Allergies Allergen Reactions Other Hallucinations Other Reaction(s): Hallucination Other Reaction(s): Other: See Comments Acetaminophen Hallucinations Escitalopram Unknown Other Reaction(s): Other Indomethacin Unknown Lisinopril Cough Morphine Nausea Only Propoxyphene Other Reaction(s): hallucinations Tapentadol Other Reaction(s): confusion Tapentadol Hcl Other Reaction(s): confusion Social History Tobacco Use Smoking status: Former Types: Cigarettes Passive exposure: Past Smokeless tobacco: Never Vaping Use Vaping status: Never Used Substance Use Topics Alcohol use: Never Drug use: Never Family History Problem Relation Name Age of Onset Hypertension Mother Cancer Father Other (htn) Sister Cancer Sibling Past Medical History: Diagnosis Date Asthma (CMS/HCC) Atrial fibrillation (CMS/HCC) Lewis esophagus Breast cancer (CMS/HCC) Chicken pox Chronic kidney disease Epistaxis Ganglion cyst GERD (gastroesophageal reflux disease) History of being hospitalized acute viral pneumonia secondary to Covid 19 (06/20/2021-06/21/2021) Hypertension (CMS/HCC) Macular degeneration Migraine headache (CMS/HCC) Osteoarthritis Pneumonia due to COVID-19 virus Renal hypertension (CMS/HCC) Past Surgical History: Procedure Laterality Date APPENDECTOMY 1977 CARPAL TUNNEL RELEASE Bilateral 1998 CHOLECYSTECTOMY CHOLECYSTECTOMY 2003 COLONOSCOPY Bilateral COLONOSCOPY 07/21/2021 with egd DILATION AND CURETTAGE 1974 EGD 05/02/2020 HYSTERECTOMY 1995 KNEE SURGERY 2000 KNEE SURGERY 2016 LAMINECTOMY 08/21/2020 LUMBAR LAMINECTOMY 08/21/2020 L2-L5 fusion and decompressive laminectomy LUMBAR TRANSFORAMINAL EPIDURAL STEROID INJECTION 11/12/2021 [place] BREAST REDUCTION 2001 [place] EDG TRANSORAL BIOPSY SINGLE/MULTIPLE 06/02/2020 TONSILLECTOMY 195 TOTAL HIP ARTHROPLASTY 05/19/2016 Visit Vitals BP 132/74 Pulse 64 Resp 16 Ht 5' 5 Wt 157 lb 12.8 oz SpO2 93% BMI 26.26 kg/m Smoking Status Former BSA 1.81 m Review of Systems Constitutional: Negative for chills, fatigue and fever. HENT: Positive for voice change. Eyes: Positive for pain. Respiratory: Negative for cough, shortness of breath and wheezing. Cardiovascular: Negative for chest pain, palpitations and leg swelling. Gastrointestinal: Negative for abdominal pain, constipation, diarrhea, nausea and vomiting. Skin: Negative for rash. Objective Physical Exam Constitutional: General: She is not in acute distress. Appearance: Normal appearance. She is well-developed. HENT: Head: Normocephalic and atraumatic. Eyes: General: No scleral icterus. Left eye: Hordeolum (Upper eyelid) present. Extraocular Movements: Extraocular movements intact. Conjunctiva/sclera: Conjunctivae normal. Cardiovascular: Rate and Rhythm: Normal rate and regular rhythm. Heart sounds: Normal heart sounds. No murmur heard. Pulmonary: Effort: Pulmonary effort is normal. No respiratory distress. Breath sounds: Normal breath sounds. No wheezing, rhonchi or rales. Skin: General: Skin is warm and dry. Neurological: General: No focal deficit present. Mental Status: She is alert and oriented to person, place, and time. Psychiatric: Mood and Affect: Mood normal. Affect is tearful (When discussing memory changes). Behavior: Behavior normal. Maximum Score Orientation 5 ( 5 ) What is the (year), (season), (date), (day), (month)? 5 ( 5 ) Where are we (state), (county), (town), (hospital), (floor)? Registration 3 ( 3 ) Name 3 Objects: One second to say each. Then ask the patient all 3 after you have said them. Give 1 point for each correct answer. Then repeat them until patient learns all 3. Count trials and record. Attention and Calculation 5 ( 5 ) Serial 7's: One point for each correct. Stop after 5 answers. Alternatively, spell world backwards. Recall 3 ( 3 ) Ask for 3 the 3 objects repeated above. Give 1 point for each correct. Language 2 ( 2 ) Name a pencil and watch (2 points). 1 ( 1 ) Repeat the following: No ifs ands or buts (1 point). 3 ( 3 ) Follow a 3-stage command: Take a paper in your right hand, fold it in half and put it on the floor (3 points). 1 ( 1 ) Read and obey the following: Close your eyes (1 point). 1 ( 1 ) Write a sentence (1 point). 1 ( 1 ) Copy design (1 point). Total Score ( 30 ) 25-30: Normal score 20-24: Suggests mild dementia 13-20: Suggests moderate dementia Less than 12: Indicates severe dementia Assessment/Plan Diagnoses and all orders for this visit: Hordeolum externum of left upper eyelid - ofloxacin (Ocuflox) 0.3 % ophthalmic solution; Administer 1 drop into the left eye in the morningand 1 drop at noon and 1 drop in the evening and 1 drop before bedtime. Do all this for 10 days. Start above as directed. Encouraged gentle warm compresses to the area several times a day. May take a few weeks to fully resolve. If any worsening of symptoms or if patient develops vision loss, follow up with Ophthalmology. Otherwise follow up here prn. Encounter for screening mammogram for malignant neoplasm of breast - Bilateral screening mammogram with tomosynthesis; Future Provided patient with an order for an updated Mammogram. If results are negative/normal, will plan to continue with routine yearly screenings. Hoarseness Intermittent. She is on reflux and allergy medication. Offered referral to ENT, she declines at this time. Memory changes Reassurance given that her MMSE was completely normal today. Encouraged her to engage in activitiesthat stimulate her mine. Stay active physically and mentally. Continue multivitamin daily. Will continue to monitor. Follow up in about 4 months (around 09/22/2024) for Medicare Wellness Visit. documented in this encounterBarnes-Jewish [id number] History of Present illness Narrative* Quita Hall MD - 03/28/2024 12:30 PM EDT Patient is new to this provider. Prior notes reviewed. She has history of paroxysmal atrial fibrillation. She remains on long-term anticoagulation. Subjective : Interval review of systems is negative for chest discomfort pressure tightness heaviness palpitations lightheadedness orthopnea paroxysmal nocturnal dyspnea dependent edema or claudication TIA or CVAtype symptoms or bleeding diathesis History so Far : 1. Paroxysmal atrial fibrillation 2. Essential hypertension 3. Anticoagulated 4. 48-hour Holter monitor February 2024-no atrial fibrillation heart rate blunting throughout bradycardia in the 30s and 40s in the beet end supervisor hours longest R to R interval 1.9 seconds at 4:58 AM rounds of paroxysmal atrial tachycardia was noted, longest 25 beats at 7:03 AM fastest run 152 beats at 8:31 PM patient did not report any symptoms there were isolated ventricular premature beats Objective Wt Readings from Last 3 Encounters: 03/28/24 70.8 kg (156 lb) 01/29/24 70.6 kg (155 lb 9.6 oz) 07/02/23 69.4 kg (153 lb) Vitals: 03/28/24 1235 BP: 120/80 BP Location: Left arm Patient Position: Sitting Pulse: 62 Weight: 70.8 kg (156 lb) Height: 1.651 m (5' 5 ) Physical Exam: GENERAL APPEARANCE: in no acute distress. CHEST: Symmetric and non-tender. INTEGUMENT: Skin warm and dry HEENT: No gross abnormalities identified.No pallor or scleral icterus. NECK: Supple, no JVD, no bruit. NEURO/PSHCY: Alert and oriented x3; appropriate behavior and responses and responses LUNGS: Clear to auscultation bilaterally; normal respiratory effort. HEART: Rate and rhythm regular with no evident murmur; no gallop appreciated. ABDOMEN: Soft, non tender. MUSCULOSKELETAL: No gross deformities. EXTREMITIES: Warm There is no edema noted. Meds: Current Outpatient Medications Medication Instructions aspirin 81 mg, oral, 2 times weekly calcium carbonate 600 mg calcium (1,500 mg) tablet 1 tablet, oral, Daily cholecalciferol (Vitamin D-3) 25 MCG (1000 UT) capsule 1 capsule, oral, Daily furosemide (LASIX) 20 mg, oral, Daily PRN gabapentin (NEURONTIN) 300 mg, oral, 3 times daily glucosamine/chondr kiran A sod (glucosamine-chondroitin) 1,500-1,200 mg/30 mL liquid oral, Daily RT magnesium oxide (Mag-Ox) 400 mg tablet 1 tablet, oral, Daily multivit-min/ferrous fumarate (MULTI VITAMIN ORAL) 1 tablet, oral, Daily omeprazole (PRILOSEC) 40 mg, oral, Daily polyethylene glycol (MIRALAX) 17 g, oral, Daily propranolol (Inderal) 10 mg tablet 1 tablet, oral, Daily (0630) spironolactone (ALDACTONE) 25 mg, oral, Daily before breakfast warfarin (COUMADIN) 1 mg, oral zinc gluconate 50 mg tablet 1 tablet, oral, Daily Allergies Allergen Reactions Indomethacin Hallucinations Lexapro [Escitalopram Oxalate] Other Propoxyphene N-Acetaminophen Hallucinations Tapentadol Hallucinations LABS: No results found for: WBC , HGB , HCT , PLT , CHOL , TRIG , HDL , LDLDIRECT , ALT , AST , NA , K , CL , CREATININE , BUN , CO2 , TSH , PSA , INR , GLUF , HGBA1C , ALBUR Patient Active Problem List Diagnosis Date Noted BMI 25.0-25.9,adult 03/28/2024 Former cigarette smoker 03/28/2024 At high risk for falls 03/28/2024 Edema 06/05/2023 Essential hypertension 06/05/2023 Paroxysmal atrial fibrillation (Multi) 06/05/2023 Anticoagulated 06/05/2023 Assessment: 1. Paroxysmal atrial fibrillation (Multi) Follow Up In Cardiology 2. Essential hypertension 3. Anticoagulated 4. BMI 25.0-25.9,adult 5. Former cigarette smoker 6. At high risk for falls Reviewed PT/INR results, they are therapeutic. No bleeding. Reviewed Holter results from February 2024. I do not see that an echocardiogram has been done at least in the recent past, will order an echocardiogram. May call for results. Follow up : 1 year-First week of March 2025. Provider Attestation - Barbie Harrison LPN Scribe documentation All medical record entries made by the Scribe were at my direction and personally dictated by me. Velvet reviewed the chart and agree that the record accurately reflects my personal performance of the history, physical exam, discussion and plan. documented in this [facility]Mer[facility] Work Phone: [phone]) 742-460809-16-2024 Instructions* Patient Instructions* Barbie Westbrook LPN - 03/28/2024 12:30 PM EDT Please bring all medicines, vitamins, and herbal supplements with you when you come to the office. Prescriptions will not be filled unless you are compliant with your follow up appointments or have a follow up appointment scheduled as per instruction of your physician. Refills should be requested at the time of your visit. Fall Prevention Education Given BMI was above normal measurement. Current weight: 70.8 kg (156 lb) Weight change since last visit (-) denotes wt loss 0.4 lbs Weight loss needed to achieve BMI 25: 6.1 Lbs Weight loss needed to achieve BMI 30: -23.9 Lbs Provided instructions on dietary changes Provided instructions on exercise. documented in this encounterMer[facility] Work Phone: [phone]) 148-611507-19-2024 History of Present illness Narrative* Sridhar Mcgill MA - 01/29/2024 11:00 AM EDT Patient is here for an EKG visit ordered by Dr. Olguin due to atrial fibrillation. Dr. Duran is in suite to review EKG prior to discharge. Patient is here due to symptoms and medication increase. Patient phoned into office with complaints of chest tightness and intermittent episodes of atrial fibrillation. Per Dr. Danish Olguin MD patient to increase Sotalol to 60mg BID. Medication list was Updated verbally with patient in office. Denies any cardiac complaints at this time. To Dr. Olguin to read. Vitals: 01/29/24 1139 BP: 138/62 BP Location: Right arm Patient Position: Sitting Pulse: (!) 43 Weight: 70.6 kg (155 lb 9.6 oz) Height: 1.651 m (5' 5 ) documented in this [facility] Work Phone: 1(796) 989-361712-21-2023 History of Present illness Narrative* Danish Olguin MD - 07/02/2023 10:00 AM EST Subjective Elicia Dent is a 72 y.o. female Chief Complaint Follow-up HPI Patient returns in follow-up of problems as noted. She is done relatively well. From time to time she has a paroxysm of atrial fibrillation but it is well- tolerated we discussed options such as antiarrhythmic therapy or ablation but she is content with her management and consequently we will continue as is. She was advised that if the symptoms become worse antiarrhythmic therapy or ablation mightbe worth consideration Otherwise she is doing well. Anticoagulant therapy is well-tolerated and her hypertension is well-controlled. Because of all the above we suggest no changes in therapy. Review of Systems Cardiovascular: Positive for palpitations. All other systems reviewed and are negative. Visit Vitals BP 132/60 (BP Location: Left arm, Patient Position: Sitting) Pulse 66 Ht 1.651 m (5' 5 ) Wt 69.4 kg (153 lb) BMI 25.46 kg/m Smoking Status Never BSA 1.78 m Objective Physical Exam Constitutional: Appearance: Normal appearance. She is normal weight. HENT: Nose: Nose normal. Neck: Vascular: No carotid bruit. Cardiovascular: Rate and Rhythm: Normal rate. Pulses: Normal pulses. Heart sounds: Normal heart sounds. Pulmonary: Effort: Pulmonary effort is normal. Abdominal: General: Bowel sounds are normal. Palpations: Abdomen is soft. Genitourinary: Rectum: Normal. Musculoskeletal: General: Normal range of motion. Cervical back: Normal range of motion. Right lower leg: No edema. Left lower leg: No edema. Skin: General: Skin is warm and dry. Neurological: General: No focal deficit present. Mental Status: She is alert. Psychiatric: Mood and Affect: Mood normal. Behavior: Behavior normal. Thought Content: Thought content normal. Judgment: Judgment normal. Current Medications Current Outpatient Medications: aspirin 81 mg EC tablet, Take 1 tablet (81 mg) by mouth 2 times a week., Disp: , Rfl: calcium carbonate 600 mg calcium (1,500 mg) tablet, Take 1 tablet (1,500 mg) by mouth once daily., Disp: , Rfl: cholecalciferol (Vitamin D-3) 25 MCG (1000 UT) capsule, Take 1 capsule (25 mcg) by mouth once daily., Disp: , Rfl: furosemide (Lasix) 20 mg tablet, Take 1 tablet (20 mg) by mouth once daily as needed., Disp: , Rfl: gabapentin (Neurontin) 300 mg capsule, Take 1 capsule (300 mg) by mouth 3 times a day., Disp: , Rfl: glucosamine/chondr kiran A sod (glucosamine-chondroitin) 1,500-1,200 mg/30 mL liquid, Take by mouth once daily., Disp: , Rfl: magnesium oxide (Mag-Ox) 400 mg tablet, Take 1 tablet (400 mg) by mouth once daily., Disp: , Rfl: multivit-min/ferrous fumarate (MULTI VITAMIN ORAL), Take 1 tablet by mouth once daily., Disp: , Rfl: omeprazole (PriLOSEC) [address] capsule, Take 1 capsule (40 mg) by mouth once daily., Disp: , Rfl: polyethylene glycol (Miralax) 17 gram/dose powder, Take 17 g by mouth once daily., Disp: , Rfl: spironolactone (Aldactone) 25 mg tablet, Take 1 tablet (25 mg) by mouth once daily in the morning. Take before meals., Disp: , Rfl: warfarin (Coumadin) 1 mg tablet, Take 1 tablet (1 mg) by mouth., Disp: , Rfl: zinc gluconate 50 mg tablet, Take 1 tablet (50 mg) by mouth once daily., Disp: , Rfl: Assessment/Plan 1. Paroxysmal atrial fibrillation (CMS/HCC) Rare paroxysms are well-tolerated. If intensified and/or more frequent we will consider other strategies. 2. Essential hypertension Well-controlled on current therapy 3. Anticoagulated Well-tolerated without complaints. Scribe Attestation By signing my name below, I, Xiomara ColemanBekah GREY , Scribe attest that this documentation has been prepared under the direction and in the presence of Mckenzie Olguin MD. documented in this encounterMer[facility] Work Phone: [phone] 810-306312-21-2023 Instructions* Patient Instructions* Shannan Giron LPN - 07/02/2023 10:00 AM EST Please bring all medicines, vitamins, and herbal supplements with you when you come to the office. Prescriptions will not be filled unless you are compliant with your follow up appointments or have a follow up appointment scheduled as per instruction of your physician. Refills should be requested at the time of your visit. documented in this encounterMer[facility] Work Phone: [phone]) 512-531812-11-2023 Evaluation note* Encounter Date Diagnosis Assessment Notes Treatment Notes Treatment Clinical Notes Jun, Right lumbar radiculopathy (ICD-10 - M54.16) Patients primary complaint today continues to be chronic lumbar with numbness throughout her right leg extending past her knee into her foot. I reviewed the MRI of the lumbar spine from 11/30/20 which showed posterior fusion of the L2-L5. There is evidence of discectomy with intervertebral fusion body placement. There is a disc material protruding from the central to the left left subarticular zone. There is facet hypertrophy. There is moderate spinal canal stenosis. There is moderate bilateral neuroforaminal narrowing which is particulate scared by hardware artifact.Patient is tearful upon examination, states feels more frustrated with the pain. Reviewed conservative therapy in in which patient has seen pain management Dr. Bales in the past but has not seen him in over a year, since 11/20/21, in which she had right lumbar transforaminal epidural steroid injection in which she had no relief. Pharmacological managment patient is currently on Gabapentin to 300mg three times a day and I will increase to 4 times a day. OARRS reviewed. Will order new Xray 6 view today with MRI Lumbar with and without gadolinium. Discussion of physical therapy in which patient is hesitant due to cost. Will order aqua therapy in [place]. Follow up in 8 weeks. Medical decision making shows a new problem to me with further workup planned or suggested with the potential for extensive treatment options that were considered with the most applicable given this patient's situation as noted above. Treatment options considered include a combination of physical therapy approaches, pharmacologic management, and interventional procedures. Those most applicable to the patient were discussed at this time. Risk of complications and/or morbidity and mortality is high given that acute and chronic pain poses a threat to life and bodily function if undertreated, poorly treated or with failure to maintain adequate treatment and timely follow up. Given the serious and fluctuating nature of pain with extensive consideration for whenever pain changes, there always remains the possibility of prolonged functional impairment requiring constant patient reassessment and high-level medical decision making. The amount and complexity of data reviewed is moderate given that patient labs, radiology reports, and other test were obtained, reviewed and summarized as applicable from the physician portal and/or outside medical records. Pertinent positive and negative findings were considered in medical decision-making. Jun, Paresthesia (ICD-10 - R20.2) Jun, DDD (degenerative disc disease), lumbar (ICD-10 - M51.36) Jun, History of lumbar fusion (ICD-10 - Z98.1) Jun, History of fusion of cervical spine (ICD-10 - Z98.1) [facility] Other 11-16-2023 Evaluation note* Encounter Date Diagnosis Assessment Notes Treatment Notes Treatment Clinical Notes May, Acute pain of right knee (ICD-10 - M25.561) May, Primary osteoarthritis of left knee (ICD-10 - M17.12) May, Other spondylosis with radiculopathy, lumbar region (ICD-10 - M47.26) May, DDD (degenerative disc disease), lumbar (ICD-10 - M51.36) May, Other We had a long discussion today regarding the etiology for pain. I explained to her that her hip x-rays overall look good and I do not appreciate any specific concerning findings for her implants. Similarly, her bilateral knee x-rays overall look good and I do not appreciate any significant osteoarthritis in either knee. Both knees almost essentially look normal. However, on her exams today, she reacts to just the slightest touch around her right hip, right knee and left knee. This is somewhat concerning based on the reaction she has with even the simplest exam maneuvers. She is a former patient of Dr. Redding. In my opinion, the way she is describing these findings and her physical exam would be concerning for spinal pathology versus a peripheral nerve neuropathy versus even a CRPS picture. At this point, I would recommend evaluation by neurosurgery versus orthopedic spine surgery. Patient request to see Dr. Davis for an evaluation and treatment. We will refer her to Dr. Davis for that evaluation and treatment. As I explained to her if she is not able to find any treatment options with surgery, she may want to explore treatment options with a neurologist for the possibility of this being peripheral neuropathy. From an orthopedic surgery standpoint, I do not feel that there are any issues with her bilateral hip replacements and I do not feel that the very mild knee arthritis is the cause of her discomfort at this time. [facility] Other 03-16-2023 Hospital Discharge instructions Patient Education 09/25/2022 12:53:18 Sinus Endoscopy, Care After Sinus Endoscopy, Care After This sheet gives you information about how to care for yourself after your procedure. Your health care provider may also give you more specific instructions. If you have problems or questions, contact your health care provider. What can I expect after the procedure? After the procedure, it is common to have: Temporary discomfort in the sinus area. Minor bleeding. Minor irritation or damage to the lining of the nose, mouth, and throat (mucous membranes). Depending on any treatments performed during your procedure, you may also have: Sinus discomfort. Headache. Nasal stuffiness (congestion). Nasal drainage. Dry nasal passages. Follow these instructions at home: Medicines Take or use mpmh-ijc-navlnle and prescription medicines only as told by your health care provider. If you were prescribed an antibiotic medicine, use it as told by your health care provider. Do not stop using the antibiotic even if your condition improves. Use nasal sprays and nasal rinses as told by your health care provider. General instructions Avoid blowing your nose and sneezing. Do not use any products that contain nicotine or tobacco, such as cigarettes and e-cigarettes. If you need help quitting, ask your health care provider. Keep your head raised (elevated) for the first few nights after surgery, or as directed by your healthcare provider. This helps to decrease inflammation. Return to your normal activities as told by your health care provider. Ask your health care provider what activities are safe for you. Keep all follow-up visits as told by your health care provider. This is important. Contact a health care provider if: You have pain or discomfort that does not get better with obie-sax-yggifhh medicine. You have a fever. You have more clear fluid or blood coming from your nose. You have pus or a bad smell coming from your nose. You have nausea and vomiting. Get help right away if: You have bleeding from the nose that does not stop. You have changes in your vision. You cannot stop vomiting. Summary After a sinus endoscopy, it is common to have temporary discomfort in the sinus area. If you were prescribed an antibiotic medicine, use it as told by your health care provider. Do not stop using the antibiotic even if you start to feel better. Do not use any products that contain nicotine or tobacco, such as cigarettes and e-cigarettes. If you need help quitting, ask your health care provider. This information is not intended to replace advice given to you by your health care provider. Make sure you discuss any questions you have with your health care provider. Document Released: 11/13/2017 Document Revised: 10/21/2019 Document Reviewed: 11/13/2017 Elsevier Patient Education 2020 [employer] 09/25/2022 12:53:18 Post Op Patient Instructions - FT (CUSTOM) Follow Up Care 09/19/2022 11:29:26 With:Cathie Gomez Address:Unknown When: Unknown Comments:As needed [facility]03-14-2023 Note [id number]:127[facility] 09-22-2022 [id number]:127[facility]05-11-2022 Evaluation note* Encounter Date Diagnosis Assessment Notes Treatment Notes Treatment Clinical Notes November, Other spondylosis with radiculopathy, lumbar region (ICD-10 - M47.26) Patients primary complaint today continues to be lumbar with numbness throughout her right leg extending past her knee into her foot. We recently performed a right lumbar transforaminal epidural steroid injection at the request of her neurosurgeon however patient denies any relief, even temporarily, following the procedure. We discussed increasing the patients Gabapentin to 300-300-600 however patient will follow up with her neurosurgeon prior to increasing this. We will follow up with the patient once she has been re-evaluated by neurosurgery, sooner if needed. Anatomy of spine discussed in detail with patient in regard to patients condition. November, DDD (degenerative disc disease), lumbar (ICD-10 - M51.36) November, Other chronic pain (ICD-10 - G89.29) November, Other Above note writ ten by Leonidas Marinelli CMA, Band Machine Operator. Edited and approved by Dr. Bandar Bales MD. [place] [employer] Other 04-06-2022 NoteHNO ID: [id number] Author: Ke Schaefer PA-C Service: ? Author Type: Physician Ultrasound Applications Specialist Type: Progress Notes Filed: 10/16/2021 4:43 PM Note Text: Records reviewed and there is no mention of a right L5-S1 being done previously. We will have her get a right L5-S1 done as a diagnostic test per Dr. Dillard's request. Pt reports no change in sx's since last visit.[facility] [id number] History of Present illness Narrative* Ke Schaefer PA-C - 10/16/2021 4:38 PM EDT Records reviewed and there is no mention of a right L5-S1 being done previously. We will have her get a right L5-S1 done as a diagnostic test per Dr. Dillard's request. Pt reports no change in sx's since last visit. documented in this encounterOur [facility]02-25-2022 NoteHNO ID: [id number] Author: Michael Dillard MD Service: ? Author Type: Physician Type: Progress Notes Filed: 09/06/2021 3:46 PM Note Text: Elicia forwarded notes from pain management. Unfortunately these are only clinical notes and do not mention any injections. We had asked her to get the procedure notes for the injections. If she cannot get these the next step would be a right L5/S1 transforaminal epidural Michael Dillard MDPremier Health Upper [facility] Medical [id number] NoteHNO ID: [id number] Author: Michael Dillard MD Service: ? Author Type: Physician Type: Progress Notes Filed: 07/23/2021 4:07 PM Note Text: This 71-year-old woman presents complaining of right sided L4 and possibly L5 radiculopathy. She underwent a minimal access lateral interbody fusion L2-5 with posterior percutaneous pedicle screw instrumentation. She reports that this pain was noticeable as soon as she woke up from surgery. On clinical exam she has a very posterior right sided incision for a lateral interbody fusion. She stands in neutral sagittal and coronal balance. She has a normal neurologic exam except for mild exacerbation of her right sided dysesthetic pain with straight leg raise. Imaging shows hardware in position L2-5 with a very posteriorly placed cage at L4-5. MRI does show right L5 foraminal stenosis. It may be that her pain is due to the L5 foraminal stenosis but given the chronology of the development of this pain and the position of her instrumentation I am suspicious that this is an injury to the L4 nerve that occurred at the time of surgery and there may not be much that can be done. She states that she has had a number of injections done 1 of which she felt provided good relief for the duration of the local anesthetic. She will get the records of all of her previous injections and forward them to us along with her memory of how she did after each of these injections. We will contact her after we have reviewed these. If she has not had a right sided L5-S1 transforaminal epidural injection we would proceed with that as the next step to rule out the L5 foraminal stenosis is the cause of her pain. Michael Dillard, [facility]01-11-2022 NoteHNO ID: [id number] Author: RT Javad(R) Service: Radiology Author Type: Technologist Type: Progress Notes Filed: 07/23/2021 12:17 PM Note Text: Radiology Service Progress Note PATIENT NAME: Elicia Dent DATE OF SERVICE: July 23, 2021 TIME: 12:16 PM PATIENT IDENTITY VERIFICATION COMPLETED USING TWO (2) IDENTIFIERS: Name and Date of confirmed by patient verbally and Name and Date of confirmed by identification band. FALL SCREENING: Has the patient had 2 falls in the last year or 1 fall with injury or currently using an Ambulatory Assistive Device (Walker, Cane, Wheelchair, Crutches, etc.)? No PATIENT GENDER DATA: Female. status: : No status: NO. PATIENT RELEVANT IMPLANT DATA REVIEWED: Not Applicable RADIOLOGY DEPARTMENT: General X-ray: Exam(s) Completed: Spine X-Ray(s): Lumbar AP / LAT / L5-S1 PERIPHERAL IV DATA: Not applicable SIGNED BY: RT Javad(R) July 23, 2021 12:16 [facility] [id number] NoteHNO ID: [id number] Author: Michael Dillard MD Service: ? Author Type: Physician Type: Progress Notes Filed: 07/23/2021 4:07 PM Note Text: SPINE SURGERY NEW PATIENT PCP: Corinna Davis MD REFERRING PROVIDER: Kyle Almendarez SUBJECTIVE HISTORY OF PRESENT ILLNESS: Elicia Dent is a 71 year old female presenting with leg pain. She had a L2-5 fusion done just over a year ago at [facility]. She states that since that surgery she's had pain in bother her legs, worse in the right leg. The pain follows about the Right L5 distribution and is present at all times. The pain is associated with her numbness. The electrical pain is better with gabapentin but is still quite bothersome and she does not like the drowsy effects of it. She also has weakness in her right leg that has been stable and present since her surgery. She has had PT and RF ablations. CHIEF COMPLAINT: leg pain PRECIPITATING EVENT: None DURATION OF SYMPTOMS: Greater Than 1 Year PAIN EVALUATION 07/23/2021 1052 Pain Level: 2 Pain Location: Leg-Right Description: Numbness;Dull Duration Units: Months Frequency: Continuous Pain Radiation: to the right and left foot/feet Aggravating Factors: Lifting, Pushing, Pulling, Standing, Walking, Walking upstairs Alleviating Factors: gabapentin Pain Ratio: all leg DERMATOMAL DISTRIBUTION: right L5 AMBULATORY STATUS: Impaired Community Distances ANTIPLATELET OR ANTICOAGULATION STATUS: Yes Atrial Fibrillation PREVIOUS CONSERVATIVE TREATMENTS: PT and RFA PREVIOUS SPINAL SURGERY: L2-5 fusion at OSH There is no problem list on file for this patient. No past medical history on file. No past surgical history on file. No family history on file. Social History Tobacco Use - Smoking status: Not on file - Smokeless tobacco: Not on file Substance Use Topics - Alcohol use: Not on file - Drug use: Not on file ALLERGIES Not on File MEDICATIONS: No prescriptions on file. REVIEW OF SYSTEMS: GENERAL: No weight loss or malaise MUSCULOSKELETAL: Negative for joint pain, swelling or muscle pain NEURO: No history of headaches, syncope, paralysis, seizures or tremors Patient Entered Questionnaires PROMIS Score Percentiles Percentiles provide an indication of how the patient's score ranks in relation to the general population. Higher percentile rankings indicate better function/quality of life. 50th percentile is the average of the general population and indicates half of respondents had a worse score. Depression Screening: PHQ-9 Self-Harm (Item 9) response options: 0 Not at all 1 Several days 2 More than half the days 3 Nearly every day PHQ-9 Levels: 0-4 No to mild depression 5-9 Mild depression 10-14 Moderate depression 15-19 Moderately severe depression 20-27 Severe depression OBJECTIVE: PHYSICAL EXAM There were no vitals taken for this visit. GENERAL APPEARANCE: Well nourished, well developed, and no apparent distress. NEURO PSYCH: Patient oriented to person, place, and time. Mood pleasant. Benign affect. MUSCULOSKELETAL VISUAL INSPECTION CERVICAL: WNL THORACIC: WNL LUMBAR: WNL MOTOR: 5/5 in all muscle groups. With exception of Right leg is 4/5 in HF, KF, KE, DF, PF. SENSORY: Decreased sensation right L5. Negative tinels at fibular head. REFLEXES: +2 to bilateral U/L extremities. LONG TRACT SIGNS: No clonus. No Hoffmans. DATA REVIEW Imaging and outside records independently reviewed. MRI demonstrates L3-5 interbody fusion. ASSESSMENT/PLAN Right leg pain and weakness likely related to retraction to lumbosacral plexus from lateral approach. Does have a L4-5 interbody a bit posterior. Discussed CT of lumbar spine to eval for this. Elicia Dent will continue with medical management of his/her condition and has a condition that requires further workup. 1. No Orders Entered Today 2. Follow up: PRN I reviewed the information obtained and documented by the fellow. I examined the patient and evaluated all available films and pertinent documents. We discussed the case and I agree with the plans as outlined in this note. SIGNATURE: Michael Dillard MD PATIENT NAME: Elicia Dent DATE: July 23, 2021 TIME: 11:40 AM PAGER:[facility]11-27-2021 Evaluation note* Encounter Date Diagnosis Assessment Notes Treatment Notes Treatment Clinical Notes May, Contact with and (suspected) exposure to other viral communicable diseases (ICD-10 - Z20.828) May, Bronchitis (ICD-10 - J40) Drink plenty fluids, get plenty of rest. Take your home medications as prescribed. Take the Zithromax as prescribed gone. Use the albuterol inhaler as prescribed for cough or shortness of breath. Follow-up with your family physician on Thursday if no improvement. May, Body aches (ICD-10 - R52) May, Other Additional time spent conducting pre-visit phone call, screening for symptoms, instructions on social distancing, application and removal of PPE, and cleaning of examination room, equipment and supplies was preformed. Patient education given for testing methodology and results. Patient care instructions given in writting by [facility] Care At Home document. [facility] Other 10-23-2021 Evaluation note* Encounter Date Diagnosis Assessment Notes Treatment Notes Treatment Clinical Notes Apr, Non-recurrent acute serous otitis media of left ear (ICD-10 - H65.02) Discussed diagnosis with patient. Recent antibiotic use and allergies reviewed. Advised patient to use ear drops as prescribed. Instructed to take antibiotic as directed, complete entire course even if feeling better. Discussed proper installation of ear drops, drops should be at room temperature, lie down with affected ear facing up. After instilling drops gently wiggle ear to help drops reach ear canal, lay with affected ear facing up for 3-5 minutes. Supportive care as discussed, increase fluid intake, Tylenol/Motrin as needed for discomfort, warm compress. Avoid putting anything inside the ear such as Q-tips, do not use other OTC ear drops unless directed by a provider. Avoid submerging head underwater, when showering place cotton ball lightly coated with petroleum jelly as ear plug to prevent water from going into ear, if water inside ear after shower may use hairspring i inspector on lowest cool setting to blow dry. Follow up with PCP or UC if no improvement in the next 2-3 days. Immediate eval for severe ear pain, severe headache, neck pain/stiffness, fever, N/V, hearing loss, fever, lethargy, or any other new or concerning symptoms. Patient verbalizes understanding and is agreeable to treatment plan Apr, Other infective acute otitis externa of left ear (ICD-10 - H60.392) See above treatment plan [facility] Other 09-30-2021 Evaluation note* Encounter Date Diagnosis Assessment Notes Treatment Notes Treatment Clinical Notes Mar, Lumbar pain (ICD-10 - M54.5) Patient's complaints of back pain are tolerable at this time. She attributes this to the recent bilateral lumbar facet radiofrequency ablations we performed. Patient is pleased with these results. She continues to focus on numbness throughout her right leg and states she is considering a second surgical opinion. We will do our best to continue to try and help with her low back, right hip and right knee pain issues. Mar, Other spondylosis with radiculopathy, lumbar region (ICD-10 - M47.26) Mar, DDD (degenerative disc disease), lumbar (ICD-10 - M51.36) Patient notes benefit in regards to her lower extremity pain while taking Gabapentin. OARRS was processed and reviewed, no discrepencies. Mar, Primary osteoarthritis of right hip (ICD-10 - M16.11) Patient seen and evaluated by orthopedics who do not believe her hip is contributing to her symtpoms Mar, Other chronic pain (ICD-10 - G89.29) Mar, Other Above note writ ten by Cecilia Raymond CMA, Band Machine Operator. Edited and approved by Dr. Bandar Bales MD. [facility] [employer] Other Evaluation + Plan note Future Appointments Appointment Date:09/25/2022 10:30:00 AM Scheduled Provider: [facility] Diagnosis Intervertebral disc disorder with radiculopathy of lumbar region Thoracic or lumbosacral neuritis or radiculitis, unspecified documented [facility] noteNo InformationNortFox [facility] [employer] Other Evaluation noteNo assessment information available [facility] Work Phone: Evaluation note* Diagnosis Paroxysmal atrial fibrillation (CMS/HCC)- Primary Atrial fibrillation Essential hypertension Unspecified essential hypertension Anticoagulated Encounter for long-term (current) use of anticoagulants documented in this encounter [facility] Work Phone: Evaluation note* Diagnosis Onset Date Resolution Status Greater trochanteric bursitis of right hip acute [facility] Work Phone: Evaluation note* Diagnosis Onset Date Resolution Status Greater trochanteric bursitis of right hip acute Greater trochanteric bursitis of right hip acute S/P lumbar fusion acute [facility] Work Phone: Evaluation note* Diagnosis Hordeolum externum of left upper eyelid- Primary Encounter for screening mammogram for malignant neoplasm of breast Hoarseness Dysphonia Memory changes [facility] Diagnosis Paroxysmal atrial fibrillation (Multi) Atrial fibrillation documented in this encounter [facility] Work Phone: Evaluation note* Diagnosis Paroxysmal atrial fibrillation (Multi) Atrial fibrillation Essential hypertension Unspecified essential hypertension Anticoagulated Encounter for long-term (current) use of anticoagulants BMI 25.0-25.9,adult Former cigarette smoker Personal history of tobacco use, presenting hazards to health At high risk for falls documented in this encounter [facility] Work Phone: Evaluation note* Diagnosis Hair follicle infection- Primary Carbuncle and furuncle of unspecified site [facility] Diagnosis Tinnitus of both ears- Primary Unspecified tinnitus Benign essential hypertension (CMS/HCC) Essential hypertension, benign Physical deconditioning Muscular wasting and disuse atrophy, not elsewhere classified Paroxysmal atrial fibrillation (CMS/HCC) Atrial fibrillation documented in [facility] encounter [facility]* Diagnosis Medicare annual wellness visit, subsequent- Primary ACP (advance care planning) Other specified counseling Osteoarthritis of cervical spine, unspecified spinal osteoarthritis complication status Postoperative pain Other acute postoperative pain Right leg weakness Muscle weakness (generalized) Sleep apnea with use of continuous positive airway pressure (CPAP) Status post lumbar spine operation Other postprocedural status Benign essential hypertension (CMS/HCC) Essential hypertension, benign Paroxysmal atrial fibrillation (CMS/HCC) Atrial fibrillation Peripheral vascular disease (CMS/HCC) Unspecified peripheral vascular disease Tachycardia Unspecified tachycardia Lewis's esophagus without dysplasia Gastroesophageal reflux disease without esophagitis Esophageal reflux Irritable bowel syndrome with constipation Irritable bowel syndrome Slow transit constipation Stage 3b chronic kidney disease (HCC) (CMS/HCC) Contracture, right ankle Edema of right lower extremity Chronic pain of both knees Kyphoscoliosis and scoliosis Primary osteoarthritis of both knees Podagra Acute gouty arthropathy Primary osteoarthritis involving multiple joints Primary osteoarthritis of left hip Spasm of thoracic back muscle Spinal stenosis of lumbar region with neurogenic claudication Thoracic arthritis Thoracic spondylosis without myelopathy IGT (impaired glucose tolerance) Impaired glucose tolerance test Other primary ovarian failure Anticoagulated Encounter for long-term (current) use of anticoagulants At high risk for falls Dependence on other enabling machines and devices Former cigarette smoker Personal history of tobacco use, presenting hazards to health History of left hip replacement Hypokalemia Hypopotassemia Low serum prealbumin Mixed hyperlipidemia (CMS/HCC) Mixed hyperlipidemia Reactive depression (CMS/HCC) Rosacea Tinnitus of both ears Unspecified tinnitus Tremor Abnormal involuntary movements documented in this encounter [facility] HealthcareHistory and physical note Author Apryl Cardenas [facility] Note Date/Time September 08, 2024 11:37am [facility] [address] [place] [address] Gastroenterology H&P Signed Patient: Elicia Dent MR#: [id number] : 1950 Acct:[id number] Age/Sex: 74 / F Adm Date: 5 Loc: Room: Type: [facility] Attending Dr: Apryl Cardenas DO Copies to: DO Kyle Fuller II, MD~ Date of Service: 09/08/2024 HISTORY & PHYSICAL: Patient's history with special attention to the cardiovascular, pulmonary systems and the current problem was reviewed with the patient immediately prior to the procedure. Present medications and doses reviewed in the EMR. Allergies and pertinent laboratory tests were also reviewedat this time in the EMR. The physical examination, as below, was then performed. Indication, assessment and HPI: 74-year-old female who presents for colonoscopy for personal history of constipation and family history of colon cancer in her father, sister and maternal uncle. Last colonoscopy in 2021. Family history of GI malignancy? Colon cancer in her father, sister and maternal uncle PHYSICAL EXAMINATION General appearance: cooperative, NAD Skin: No jaundice, no rash or lesions Head: NCAT Eyes: Anicteric Neck: Supple Lungs: Normal respiratory effort, no use of accessory muscles Abdomen: Soft, nondistended Neuro: No focal deficits, Ox3. REVIEW OF SYSTEMS Constitutional: Denies malaise, fevers Cardiovascular: Denies chest pain, palpitations Respiratory: Denies shortness of breath, wheezing Gastrointestinal: As per HPI Genitourinary: Denies dysuria, polyuria Musculoskeletal: Denies joint swelling, joint stiffness Neurological: Denies confusion, numbness, tingling Endocrine: Denies fatigue Written informed consent obtained from the patient. Risks (including but not limited to perforation, infection, bloating, bleeding, need for emergent surgeryand loss of life), benefits and alternatives explained and questions answered. The patient verbalized understanding. Based on history patient is an appropriate candidate for the procedure. 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 Medical History Atrial fibrillation Medical History Asthma Medical History degenerative disc disease Medical History spinal stenosis Surgical History tonsillectomy 1958 Surgical History Tonsils 1958 Surgical History D & C 1974 Surgical History D&C 1975 Surgical History appendectomy 1976 Surgical History hysterectomy 1994 Surgical History Carpal Tunnel Release robert 1997 Surgical History carpal tunnel surgery 1997 Surgical History Left knee scope medial meniscus (other) 2000 Surgical History repair of medial meniscus tear 2000 Surgical History Bilateral Breast Reduction 2001 Surgical History partial breast resection for ca ncer 2001 Surgical History cholecystectomy 2002 Surgical History Left knee scope ( Other) 2015 Surgical History Lt hip replacement 2015 Surgical History Left REMIGIO 05/19/2016 Surgical History Rt hip replacement 2017 Surgical History Lt knee 10/2015 Surgical History lumbar - Dr. 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 Medical History Atrial fibrillation Medical History Asthma Medical History degenerative disc disease Medical History spinal stenosis Medical History Arthritis Medical History Gout Medical History high cholesterol Medical History migraine headache Medical History obesity Medical History pneumonia Medical History anxiety Surgical History tonsillectomy 9 Surgical History Tonsils 1958 Surgical History D & C 1975 Surgical History D&C 1975 Surgical History appendectomy 1976 Surgical History hysterectomy 1994 Surgical History Carpal Tunnel Release robert 1997 Surgical History carpal tunnel surgery 1998 Surgical History Left knee scope medial meniscus (other) 2000 Surgical History repair of medial meniscus tear 2000 Surgical History Bilateral Breast Reduction 2001 Surgical History partial breast resection for ca ncer 2001 Surgical History cholecystectomy 2002 Surgical History Left knee scope ( Other) 2015 Surgical History Lt hip replacement 2015 Surgical History Left REMIGIO 05/19/2016 Surgical History Rt hip replacement 2018 Surgical History Lt knee 10/2015 Surgical History cervical - Dr. Lowery 08/2019 Surgical History lumbar epidural 12/2020 Surgical History back surgery - Kimo 09/02 Hospitalization History as above in flaco tion to giving to 3 times between 67 and 76 and admission for cardiac testing in 2011 [facility] Other History of Present illness NarrativePatient returns in follow-up of problems as noted. She doing well. She is tolerating her current strategy of antithrombotic therapy to mitigate his risk of stroke associated with paroxysms of atrial fibrillation. Today in the office she actually appears to be in sinus rhythm and doing well because of this we suggest no change. Other problems which include hypertension appear to be under good control and as a consequence no change in therapy is necessary. We did advocate diet exercise and weightloss.[facility] DO Work Phone: History of Present illness NarrativePatient returns for follow-up of problems as noted. In the interim she is done well and denies any symptoms associated with paroxysmal atrial fibrillation. She is tolerating warfarin therapy well andhas no complaints in this regard. Blood pressure control is also acceptable. She has some leg edemaand it was discussed in detail but she does not wish to intensify diuretic therapy and because of this she will continue as is. She was congratulated on her continued tobacco abstinence but reminded of the merits of a modest diet and weight loss.-[facility] DO Work Phone: Hospital course Narrative No data available for this section [facility] No data available for this section [facility] ClinicProgress note No data available for this section [facility] ClinicReason for referral (narrative)* Consultation (Routine) - Authorized Specialty Diagnoses / Procedures Referred By Contac t Referred To Contact Cardiology Diagnoses Paroxysmal atrial fibrillation (CMS/HCC) Procedures Follow Up In Cardiology Danish Olguin MD [address] [place], [place] [address]dinesh H[address] [address] Danish Olguin MD 70[facility] Fall[facility] [address] [address] Referral ID Status Reason Start Date Expiration Date V isits Requested Visits Authorized [id number] Authorized 07/02/2023 07/01/2024 1 1 [facility] Work Phone: Summary Purpose Family History No Family History Records FoundUnknown Family Member Name Dates Details Family history of atrial fib rillation: Mother, Sibling(V17.49, Z82.49) Status:Active S/P CABG (coronary artery by pass graft): Father(V45.81, Z95.1) Status:Active Unknown Family Member Name Dates Details Family history of atrial fib rillation: Mother, Sibling(V17.49, Z82.49) Status:Active S/P CABG (coronary artery by pass graft): Father(V45.81, Z95.1) Status:Active Unknown Family Member Name Dates Details Family history of atrial fib rillation: Mother, Sibling(V17.49, Z82.49) Status:Active S/P CABG (coronary artery by pass graft): Father(V45.81, Z95.1) Status:Active Unknown Family Member Name Dates Details Family history of atrial fib rillation: Mother, Sibling(V17.49, Z82.49) Status:Active S/P CABG (coronary artery by pass graft): Father(V45.81, Z95.1) Status:Active Relationship Condition Age at Onset Recorded Date/T giovanni father Malignant neoplasm of colon Unknown Hypertension Unknown Family history of co ronary artery bypass surgery Unknown sister Malignant neoplasm of colon Unknown Diabetes mellitus Unknown Not Specified Hypertension Unknown grandparent Hypertension Unknown brother Diabetes mellitus Unknown Unknown Family Member Name Dates Details Family history of atrial fib rillation: Mother, Sibling(V17.49, Z82.49) Status:Active S/P CABG (coronary artery by pass graft): Father(V45.81, Z95.1) Status:Active Relationship Condition Age at Onset Recorded Date/T giovanni father Malignant neoplasm of colon Unknown Hypertension Unknown Family history of co ronary artery bypass surgery Unknown sister Malignant neoplasm of colon Unknown Diabetes mellitus Unknown mother Hypertension Unknown grandparent Hypertension Unknown brother Diabetes mellitus Unknown brother Unknown father Unknown Malignant neoplasm Unknown Heart disease Unknown family member Unknown mother Heart disease Unknown sister Malignant neoplasm Unknown Relationship Condition Age at Onset Recorded Date/T giovanni father Malignant neoplasm of colon Unknown Family history of co ronary artery bypass surgery Unknown Hypertension Unknown Heart disease Unknown sister Malignant neoplasm of colon Unknown Diabetes mellitus Unknown mother Diabetes mellitus Unknown grandparent Hypertension Unknown brother Diabetes mellitus Unknown brother Unknown father Unknown family member Unknown sister Hypertension Unknown Advance Directives No Advanced Directives Records Found Advance Directive Response Recorded Date/ Time Advance Directives No June 1:50pm Advance Directive Response Recorded Date/ Time Advance Directives No June 2:50pm Chief Complaint ELICIA DENT is being seen for a 9 month follow-up of.ELICIA DENT is being seen for a 9 month follow-up of.ELICIA DENT is being seen for a 9 month follow-up of. Chief Complaint and Reason for Visit Chief Complaint Black Stools Chief Complaint m25.561 m17.12 M51.36 Chief Complaint OP SP RT REMIGIO PAIN M25.551 - Pain in right hip Chief Complaint OP SP RT REMIGIO PAIN M25.551 - Pain in right hip Reason for Visit Greater trochanteric bursitis of right hip Chief Complaint OP SP RT REMIGIO PAIN M25.551 - Pain in right hip M48.061 Z98.890 M54.16 Reason for Visit Greater trochanteric bursitis of right hip Chief Complaint OP SP RT REMIGIO PAIN M25.551 - Pain in right hip M48.061 Z98.890 M54.16 I10 Reason for Visit Greater trochanteric bursitis of right hip Chief Complaint OP SP RT REMIGIO PAIN M25.551 - Pain in right hip M48.061 Z98.890 M54.16 I10 mri results Reason for Visit Greater trochanteric bursitis of right hip Greater trochanteric bursitis of right hip S/P lumbar fusion Chief Complaint Admit Date cough September 02, 2024 9:46am Chief Complaint Admit Date cough September 02, 2024 9:46am IBS-C/Constipation/ September 08, 2024 10:15am IBS-C/Constipation/ September 08, 2024 11:37am Reason for Visit Admit Date Viral bronchitis September 02, 2024 9:46am Reason for Referral Specialty Diagnoses / Procedures Referred By Contac t Referred To Contact Cardiology Diagnoses Paroxysmal atrial fibrillation (Multi) Procedures Transthoracic Echo Complete [place] ECHO TTHRC R-T 2D W/WOM-MODE COMPL SPEC&COLR D Quita Hall MD [address] [place] [address] Referral ID Status Reason Start Date Expiration Date Visits Requested Visits Authorized [id number] Pending Review Perform Procedure 03/28/2024 03/28/2025 1 1 Specialty Diagnoses / Procedures Referred By Pollo t Referred To Contact Cardiology Diagnoses Paroxysmal atrial fibrillation (Multi) Procedures Follow Up In Cardiology Quita Hall MD [address] [place], [place] [address], [place] [address] Quita Hall MD [address] [facility] [address] [place] [address] Referral ID Status Reason Start Date Expiration Date V isits Requested Visits Authorized [id number] Authorized 03/28/2024 03/28/2025 1 1 Reason aqua therapy - evalu ate and treat Diagnosis 1 DDD (degenerative di sc disease), lumbar (M51.36) Referral Organization [facility] Referring Provider First Name Farnaz Referring Provider Last Name Lisa Referring Provider Specialty Nurse Pract itioner Referred Organization [facility] Referred Address [address] [place], [place],[address] Referred Provider Specialty Physical The rapist Referral Priority Routine Reason Please refer to Dr. Davis. Patient is former [facility] patient. Diagnosis 1 DDD (degenerative di sc disease), lumbar (M51.36) Diagnosis 2 Spondylolisthesis at L3-L4 level (M43.16) Diagnosis 3 Spondylolisthesis at L4-L5 level (M43.16) Diagnosis 4 Other spondylosis wi th radiculopathy, lumbar region (M47.26) Referral Organization [facility] Referring Provider First Name Demetrio Referring Provider Last Name Nilson GIBBS Referring Provider Specialty Orthopedic Surgery Referred Organization [facility] u[facility] Referred Provider Eriberto Davis Referred Address [address] [facility] [address] [place], [place],[address] Referred Provider Specialty Neurological Surgery Referral Priority Routine General Notes Shaina Ramirez 12:02:24 PM >Received today, saw in November 2020. Sending p2p at this time Additional Source Comments INFORMATION SOURCE (unrecogn ized section and content) DATE CREATED AUTHOR 06/27/2018 [facility] DATE CREATED AUTHOR AUTHOR'S ORGANIZ ATION 07/24/2021 [facility] DATE CREATED AUTHOR AUTHOR'S ORGANIZ ATION 08/31/2021 [facility] dical Specialist DATE CREATED AUTHOR AUTHOR'S ORGANIZ ATION 10/03/2021 [facility] DATE CREATED AUTHOR AUTHOR'S ORGANIZ ATION 10/19/2021 [facility] DATE CREATED AUTHOR AUTHOR'S ORGANIZ ATION 06/12/2022 [facility] DATE CREATED AUTHOR AUTHOR'S ORGANIZ ATION 11/11/2022 [facility] DATE CREATED AUTHOR AUTHOR'S ORGANIZ ATION 12/19/2022 [facility] DATE CREATED AUTHOR AUTHOR'S ORGANIZ ATION 02/19/[address] [facility] ical Center DATE CREATED AUTHOR AUTHOR'S ORGANIZ ATION 08/28/2024 [facility] DATE CREATED AUTHOR AUTHOR'S ORGANIZ ATION 09/09/2024 [facility] dical Specialists EPIC DATE CREATED AUTHOR AUTHOR'S ORGANIZ ATION 09/10/2024 [facility] y[facility] Source Comments (unrecognize d section and content) In the event this informatio n is protected by the Federal Confidentiality of Alcohol and Drug Abuse Patient Records regulations: The Federal rules restrict any use of the information to criminally investigate or prosecute any alcohol or drug abuse patient.[facility] Reason for Visit (unrecogniz ed section and content) Reason Comments Follow Up Reason Comments Follow-up 1 year Reason Comments EKG visit Specialty Diagnoses / Procedures Referred By Pollo t Referred To Contact Diagnoses Paroxysmal atrial fibrillation (Multi) Procedures ECG 12 Lead Danish Olguin MD [address] [facility] [address], [address] [address] Referral ID Status Reason Start Date Expiration Date V isits Requested Visits Authorized [id number] Authorized 01/26/2024 01/25/2025 1 1 Reason Comments Follow-up Med change afib Specialty Diagnoses / Procedures Referred By Contac t Referred To Contact Cardiology Diagnoses Paroxysmal atrial fibrillation (Multi) Procedures Follow Up In Cardiology Andrzej Marinelli, MANAGEMENT TECH-NATURAL RESOURCE SPECIALIST [address] [facility] [address], [address] [place] [address] Quita Hall MD [address] [facility] [address] [place] [address] Referral ID Status Reason Start Date Expiration Date V isits Requested Visits Authorized [id number] Authorized 02/23/2024 02/22/2025 1 1 Reason Comments Sinusitis [facility] on [facility] - admits runny nose with clear mucus, sinus pressure, left ear pain, cough (improving). At urgent care they rx'd albuterol inhaler and a medrol dose [place]. Has colonoscopy scheduled for tomorrow Care Teams (unrecognized sec tion and content) Paint Specialist Relationship Specialty Start Date End Date Corinna Davis MD [address] [facility] [place] [place] [id number] PCP - General Family Practice 04/18/14 Kyle Almendarez II [address] [facility] [address] [place] [address] Referring Internal Medicine 05/23/21 Team Status: Inactive Member Role Status Amanda Almendarez II MD Primary Care Provider Active Ari Atkinson DO Attending Provider Active Team Status: Active Member Role Status Amanda Almendarez II MD Primary Care Provider Active Team Status: Inactive Member Role Status Dates Kyle Almendarez II MD Primary Care Provider Active Demetrio Devine II, MD Attending Provider Active Team Status: Inactive Member Role Status Amanda Almendarez II MD Primary Care Provider Active Farnaz Gonzalez NP-[place] Attending Provider Active Paint Specialist Relationship Specialty Start Date End Date Kyle Almendarez MD [address] [facility] [address] [place] [address] PCP - General Internal Medicine 07/02/23 Team Status: Inactive Member Role Status Amanda Almendarez II MD Primary Care Provider Active Start: February 11, 2024 End: February 11, 2024 Demetrio Devine II, MD Attending Provider Active Start: February 11, 2024 End: February 11, 2024 Team Status: Active Member Role Status Amanda Almendarez II MD Primary Care Provider Active Start: February 11, 2024 Demetrio Devine II, MD Attending Provider Active Start: February 11, 2024 Team Status: Inactive Member Role Status Dates Kyle Almendarez II MD Primary Care Provider Active Start: March 05, 2024 End: March 05, 2024 Eriberto Davis MD Attending Provider Active Star t: March 05, 2024 End: March 05, 2024 Team Status: Inactive Member Role Status Dates Kyle Almendarez II MD Primary Care Provider Active Start: March 28, 2024 End: March 28, 2024 Quita Hall MD Attending Provider Active Star t: March 28, 2024 End: March 28, 2024 Team Status: Inactive Member Role Status Dates Kyle Almendarez II MD Primary Care Provider Active Start: March 31, 2024 End: March 31, 2024 Cinthia Xie APRN Attending Provider Active Start: March 31, 2024 End: March 31, 2024 Paint Specialist Relationship Specialty Start Date End Date Kyle Almendarez MD [address] [facility] [address] [place] [address] PCP - Devoted 07/13/22 Kyle Almendarez MD [address] [place] [address] PCP - General Internal Medicine 11/24/22 Paint Specialist Relationship Specialty Start Date End Date Kyle Almendarez MD [address] [place] [address] PCP - Devoted 07/13/22 Kyle Almendarez MD [address] [place] [address] PCP - General Internal Medicine 11/24/22 Paint Specialist Relationship Specialty Start Date End Date Kyle Almendarez MD [address] [place] [address] PCP - General Internal Medicine 07/02/23 Paint Specialist Relationship Specialty Start Date End Date Kyle Almendarez MD [address] [place] [address] PCP - General Internal Medicine 07/02/23 Paint Specialist Relationship Specialty Start Date End Date Kyle Almendarez MD [address] [place] [address] PCP - Devoted 07/13/22 Kyle Almendarez MD [address] [place] [address] PCP - General Internal Medicine 11/24/22 Paint Specialist Relationship Specialty Start Date End Date Kyle Almendarez MD [address] [place] [address] PCP - Devoted 07/13/22 Kyle Almendarez MD [address] [place] [address] PCP - General Internal Medicine 11/24/22 Paint Specialist Relationship Specialty Start Date End Date Kyle Almendarez MD [address] [address] [place] [address] PCP - Devoted 07/13/22 Kyle Almendarez MD [address] [place] [address] PCP - General Internal Medicine 11/24/22 Team Status: Inactive Member Role Status Dates Kyle Almendarez II MD Primary Care Provider Active Start: September 02, 2024 End: September 02, 2024 Vero Suazo APRN Attending Provider Active Start: September 02, 2024 End: September 02, 2024 Paint Specialist Relationship Specialty Start Date End Date Kyle Almendarez MD [address] [place] [address] PCP - Devoted 07/13/22 Kyle Almendarez MD [address] [place] [address] PCP - General Internal Medicine 11/24/22 Jenae Warren, KATIE Clinical [facility] 08/19/24 Paint Specialist Relationship Specialty Start Date End Date Kyle Almendarez MD [address] [place] [address] PCP - Devoted 07/13/22 Kyle Almendarez MD [address] [place] [address] PCP - General Internal Medicine 11/24/22 Jenae Wraren, KATIE Clinical [facility] 08/19/24 Team Status: Inactive Member Role Status Dates Kyle Almendarez II MD Primary Care Provider Active Start: September 08, 2024 End: September 08, 2024 Apryl Cardenas DO Attending Provider Active St art: September 08, 2024 End: September 08, 2024 Team Status: Active Member Role Status Dates Kyle Almendarez II MD Primary Care Provider Active Start: September 08, 2024 Apryl Cardenas DO Attending Provider, Other Provider Active Start: September 08, 2024 Goals (unrecognized section and content) Goals may be documented in a n alternate section FOR RECORDS PERTAINING TO PATIENTS WHO ARE OR HAVE BEEN ENROLLED IN A CHEMICAL DEPENDENCY/SUBSTANCEABUSE PROGRAM, SOME INFORMATION MAY BE OMITTED. This clinical summary was aggregated from multiple sources. Caution should be exercised in using it in the provision of clinical care. This summary normalizes information from multiple sources, and as a consequence, information in this document may materially change the coding, format and clinical context of patient data. In addition, data may be omitted in some cases. CLINICAL DECISIONS SHOULD BE BASED ON THE PRIMARY CLINICAL RECORDS. [facility]. provides no warranty or guarantee of the accuracy or completeness of information in this document.
== END 2024-09-15 08:56 | disposition home or self-care (01) ==
LOC: RAD 08:55
PROVIDERS: PCP Internal Medicine; Visit Provider Internal Medicine
DX: E28.39 Other primary ovarian failure (principal); M85.80 Other specified disorders of bone density and structure, unspecified site
CPT/HCPCS: 77080

== ENCOUNTER 2024-10-11 04:01 | Outpatient (RCR) | payer OTHER, SELFPAY | END 2024-11-09 15:06 | disposition home or self-care (01) | LOC: MM 04:01 | PROVIDERS: PCP Internal Medicine; Visit Provider Internal Medicine | DX: Z51.81 Encounter for therapeutic drug level monitoring (principal); Z79.01 Long term (current) use of anticoagulants; I48.91 Unspecified atrial fibrillation | CPT/HCPCS: 85610; G0463 ==

== ENCOUNTER 2024-11-10 04:50 | Outpatient (RCR) | payer OTHER, SELFPAY | END 2024-12-09 15:11 | disposition home or self-care (01) | LOC: MM 04:50 | PROVIDERS: PCP Internal Medicine; Visit Provider Internal Medicine | DX: Z51.81 Encounter for therapeutic drug level monitoring (principal); Z79.01 Long term (current) use of anticoagulants; I48.91 Unspecified atrial fibrillation | CPT/HCPCS: 85610; G0463 ==

== ENCOUNTER 2024-12-11 08:00 | Outpatient (RCR) | payer OTHER, SELFPAY | END 2025-01-05 14:51 | disposition home or self-care (01) | LOC: MM 08:00 | PROVIDERS: PCP Internal Medicine; Visit Provider Internal Medicine | DX: Z51.81 Encounter for therapeutic drug level monitoring (principal); Z79.01 Long term (current) use of anticoagulants; I48.91 Unspecified atrial fibrillation | CPT/HCPCS: 85610; G0463 ==

== ENCOUNTER 2025-01-10 02:44 | Outpatient (RCR) | payer OTHER, SELFPAY | END 2025-02-09 16:53 | disposition home or self-care (01) | LOC: MM 02:44 | PROVIDERS: PCP Internal Medicine; Visit Provider Internal Medicine | DX: Z51.81 Encounter for therapeutic drug level monitoring (principal); Z79.01 Long term (current) use of anticoagulants; I48.91 Unspecified atrial fibrillation | CPT/HCPCS: 85610; G0463 ==

== ENCOUNTER 2025-01-30 07:21 | Outpatient (OUT) | payer OTHER, SELFPAY ==
--- OUTSIDE RECORDS SUMMARY | 2025-01-30 07:25 | XMS_ITS | CCD ---
Author Organization [facility] Care Team Providers Care Die Designer Name Role Phone ANDRZEJ MARINELLI Unavailable Unavailable ANDRADE ANDRZEJ B Unavailable Unavailable CORINNA DAVIS Unavailable Unavailable PILAR MARINELLINA B Unavailable Unavailable CORINNA DAVIS Unavailable Unavailable Unavailable Unavailable Corinna Davis MD Primary Care Provider Kyle Almendarez II Unavailable [phone] Bandar Bales Unavailable Adrienne Mas Unavailable Loli Pineda Unavailable Ke Ellington Unavailable BERNIE Almendarez Primary Care Provider DO Ari Atkinson Attending Provider KYLE ALMENDAREZ Primary Care Physician Kyle Almendarez II Primary Care Unavail able Kyle Almendarez II Primary Care Unavail able Sharif GIBBS, Dr. Danish Pierre Attending Unavailable Sharif GIBBS, Dr. Danish Pierre Referring Unavailable FAWWAD, YOUNG H Attending Unavailable KELTONWMO, YOUNG H Admitting Unavailable DR KYLE ALMENDAREZ Primary Care Unavailable DR KYLE ALMENDAREZ Primary Care Unavailable FAWWAD, YOUNG H Attending Unavailable FAWWAD, YOUNG H Admitting Unavailable FAWWAD, YOUNG H Admitting Unavailable FAWWAD, YOUNG H Attending Unavailable DR KYLE ALMENDAREZ Primary Care Unavailable FAWWAD, YOUNG H Attending Unavailable FAWWAD, YOUNG H Admitting Unavailable DR KYLE ALMENDAREZ Primary Care Unavailable FAWWAD, YOUNG H Attending Unavailable FAWMO, YOUNG H Admitting Unavailable DR KYLE ALMENDAREZ [...] Unavailable ALMENDAREZ, DR CARVER Primary Care Unavailable CMOFORT, RACHEAL Consulting Unavailable COMFORT, RACHEAL Attending Unavailable [...] II Unavailable BERNIE Almendarez Primary Care Provider [phone] MD Demetrio Devine II Attending Provider [phone] THA Gonzalez Attending Provider Farnaz Gonzalez Unavailable Kyle Almendarez MD Primary Care Provider BERNIE Almendarez Primary Care Provider MD Demetrio Devine II Attending Provider MD Eriberto Davis Attending Provider MD Quita Hall Attending Provider [phone] Kyle Almendarez MD Unavailable Kyle Almendarez MD Primary Care Provider [phone] DANISH OLGUIN Referring Unavailable KYLE ALMENDAREZ Primary Care Unavailable ANDRZEJ MARINELLI Referring Unavailable KYLE ALMENDAREZ Primary Care Unavailable QUITA HALL Attending Unavailable KYLE ALMENDAREZ Primary Care Unavailable ANDRZEJ MARINELLI Referring Unavailable Jenae Warren RN Unavailable Kyle Almendarez II Primary Care Provider Ly Apryl LOPEZ L Attending Provider Erickson GIBBS, Kyle Primary Care Provider Ly Apryl LOPEZ Attending Provider Marcos Pineda APRN Emergency Provider Marcos Pineda Admitting Unavailable Marcos Pineda Attending Unavailable Kyle Almendarez Primary Care Unavailable Demetrio Devine II Admitting UnavailDemetrio Harding II Attending Unavailabl e Kyle Almendarez Primary Care Unavailable Eriberto Davis Admitting Unavailable Eriberto Davis Attending Unavailable Kyle Almendarez Primary Care Unavailable Quita Hall Attending Unavailable Kyle Almendarez Primary Care Unavailable Quita Hall Admitting Unavailable Kyle Almendarez Primary Care Unavailable Anne-Marie, Cinthia Admitting Unavailable Anne-Marie Cinthia Attending Unavailable Ly, Paryl L Admitting Unavailable Ly, Apryl L Attending Unavailable Erickson Kyle Primary Care Unavailable Zhu DIRECTOR OF PEOPLE, Alesia Unavailable ROSALVA RUST Attending Unavailable HEMROSALVA VEGA Attending Unavailable HEMROSALVA VEGA Attending Unavailable HEMROSALVA VEGA Attending Unavailable HEMROSALVA VEGA Attending Unavailable HEMROSALVA VEGA Attending Unavailable HEMROSALVA VEGA Attending Unavailable ROSALVA RUST Attending Unavailable Allergies Allergy Classification Reported Allergen(s) Allergy Type Date of Onset Reaction(s) Facility (15 sources) Acetaminophen / Propoxyphene; Translations: [Darvocet A500] Drug Allergy Hallucinations [facility] [employer] Other (5 sources) Indomethacin; Translations: [Indocin CAPS] Drug Allergy Hallucinations [facility] 250 DO Work Phone: (20 sources) tapentadol; Translations: [Nucynta TABS] Drug Allergy 02-05-20 17 Other: See Comments, Hallucinations [facility] (20 sources) Indomethacin; Translations: [indomethacin] Drug Allergy 02-28-20 18 Other: See Comments, Hallucinations, Unknown [facility] (5 sources) Propoxyphene N-Acetaminophen; Translations: [PROPOXYPHENE N-ACETAMINOPHEN] Drug Allergy 05-02-20 13 Other: See Comments, Hallucinations [facility] (10 sources) Indomethacin Drug Allergy hallucinations [facility] [employer] Other (15 sources) Darvocet-N 100; Translations: [acetaminophen / propoxyphene] Drug allergy 05-02-20 13 Unknown, Hallucination [facility] (20 sources) Lisinopril; Translations: [lisinopril] Drug Allergy 11-08-19 22 [facility] (20 sources) Propoxyphene; Translations: [propoxyphene] Drug Allergy 11-08-19 22 Hallucinating, Hallucinating, hallucinations [facility] (20 sources) tapentadol; Translations: [TAPENTADOL] Drug Allergy 11-08-19 22 Confusion, Confusion, hallucinations [facility] Comment on above: confused/hallucinati ons after hip replacement surgery (20 sources) Escitalopram; Translations: [escitalopram] Drug Allergy 06-22-20 23 Unknown (qualifier value), Unknown [facility] (1 source) Morphine Drug Allergy 06-16-20 21 [facility] (2 sources) Procyclidine; Translations: [Indocin] Drug Allergy [facility] (2 sources) tapentadol; Translations: [Nucynta] Drug Allergy 02-18-20 17 [facility] (4 sources) Escitalopram; Translations: [ESCITALOPRAM OXALATE] Drug Allergy 07-02-20 23 Other [facility] (20 sources) Acetaminophen; Translations: [acetaminophen] Drug Allergy 06-22-20 23 Hallucinations [facility] (20 sources) Morphine Drug Allergy 11-26-19 23 Nausea Only [facility] (20 sources) tapentadol Drug Allergy 11-26-19 [facility] (20 sources) Other Propensity to adverse reactions 05-02-20 13 Hallucinations [facility] (1 source) Escitalopram Drug Allergy 11-25-19 [facility] (2 sources) Indomethacin Drug Allergy 03-31-20 [facility] Medications Current Medications Medication Drug Class(es) Dates Sig (Normalized) Sig (Original) [id number] 200 actuat albuterol 0.09 mg/actuat metered dose inhaler (20 sources) beta2-Adrenergic Agonist Start: 09-02-2024 take 2 [...] breath or wheezing 8.5 September 02, 2024 1:00am Start: 06-08-2021 take 2 puff(s) by in [...] Start: 05-04-2021 take 1 tablet by jessica th every twelve hours Amoxicillin 875 MG 1 [...] Release (Dr/Ec) Discontinued 81 MG PO TuFr@0900 September 06, 2020 1:00am July 21, 2022 7:40am Start: 01-10-2018 End: 02-27-2018 take 1 tablet by mouth once daily Aspirin 81 mg tablet,delayed release (DR/EC) Discontinued 81 MG PO Daily January 10, 2018 12:00am February 27, 2018 6:37pm Aspirin EC 81 MG TBEC 2 per [...] per week biotin 10 mg oral tablet (20 sources) take 1 tablet by mouth once [...] MG PO Every morning September 06, 2020 1:00am Start: 02-27-2018 End: 09-07-2020 take 1 tablet by mouth once daily in the morning Calcium Carbonate (Calcium 600) 600 mg calcium (1,500 mg) Tablet Discontinued 600 MG PO Every morning February 27, 2018 12:00am September 07, 2020 9:58am take 1 tablet by jessica th once [...] 100 MCG PO Daily July 21, 2022 1:00am Start: 07-21-2022 take 1 capsule by mo uth once daily Cholecalciferol (Vitamin D3) 100 mcg [...] 2 TAB PO Daily July 30, 2017 1:00am August 23, 2020 7:42pm Glucosamine-Naeem droitin (GLUCOSAMINE CHONDR COMPLEX PO) 1 (one) time each day. Active Classic (3 sources) Start: 09-22-2022 take 1 tablet by mouth once daily Classic 1 tab(s), Oral, Daily, Refill(s) 0, Prophylaxis Start Date: 09/22/22 Status: Ordered docusate sodium 50 mg / sennosides, alf 8.6 mg oral tablet (1 source) Start: 11-27-2020 take 8.6-50 mg by mouth at bedtime Senokot S 8.6-50 MG 2 tablets Orally at bedtime for 30 day(s) November, Active fluticasone propionate 0.05 mg/actuat metered dose nasal spray (20 sources) Corticosteroid Start: 05-04-2021 take 1 spray(s) [...] 09-06-2020 End: 09-10-2021 Fluticasone Propionate 50 mcg/actuation Nelson,Suspension Discontinued 2 SPRAY NARES-BOTH Daily September 06, 2020 1:00am September 10, 2021 10:58am furosemide 20 mg oral tablet (20 sources) Loop Diuretic Start: 09-10-2021 take 1 tablet by mouth every twenty-four hours as needed furosemide (Lasix) 20 MG tablet Take 20 mg by mouth Daily as needed (Leg Swelling) 02/06/2024 Active Lasix Active Comment on above: Take 20 mg by mouth once daily. gabapentin 300 mg oral capsule (20 sources) Anti-epileptic Agent Start: 09-10-2021 gabapentin (Neurontin) 300 MG capsule Indications: Spinal stenosis of lumbar region with neurogenic claudication TAKE 1 CAPSULE BY MOUTH IN THE MORNING, then ONE CAPSULE BY MOUTH at noon, then ONE CAPSULE BY MOUTH IN THE EVENING, then ONE CAPSULE BY MOUTH BEFORE bedtime 400 capsule 3 10/26/2024 Active Start: 09-10-2021 gabapentin (Ne urontin) 300 MG [...] 1:00am Start: 09-10-2021 take 1 capsule by mo uth once daily Nqjitsdzkxj-Gerttbufp-Cpe C-Mn Active 1 CAP PO Daily September 10, 2021 12:00am Avdsobxnhpt-Drrdlpnlq-Ocu C-Mn 500-400 mg Capsule (4 sources) Start: 09-10-2021 take 1 capsule by mouth once daily Lyprtkeczle-Oacprypoi-Hvx C-Mn 500-400 mg Capsule Active 1 CAP PO Daily September 10, 2021 1:00am Start: 09-10-2021 take 1 capsule by mo uth once daily Heovxdqdxff-Xzagmwoxe-Cwf C-Mn 500-400 m g Capsule Active 1 CAP PO Daily September 10, 2021 12:00am glucosamine/ruby Baumann sod (glucosamine-chondroitin) 1,500-1,200 mg/30 mL liquid (3 sources) glucosamine/naeem Baumann sod (glucosamine-chondroitin) 1,500-1,200 mg/30 mL liquid Take by mouth once daily. Active glucosamine/naeem dr qiana Baumann sod (glucosamine-chondroitin) 1,500-1,200 mg/30 mL liquid Take by mouth once daily. 0 Active hydrocortisone 10 mg/ml / neomycin 3.5 mg/ml / polymyxin b [id number] unt/ml otic solution (5 sources) Aminoglycoside Antibacterial, Polymyxin-class Antibacterial, Corticosteroid Start: 05-04-2021 Icohmnqn-Fnffthsmy-JA [id number] 4 drops into affected ear Otic Three times a day for 7 day(s) Apr, Active magnesium oxide 400 mg oral tablet (20 sources) Start: 02-16-2020 End: 09-07-2020 take 1 tablet by mouth once daily in the morning Magnesium Oxide 400 mg (241.3 mg magnesium) Tablet Active 400 MG PO Every morning September 06, 2020 1:00am Comment on above: Take by mouth. metroNIDAZOLE 0.01 mg/mg topical gel (20 sources) Nitroimidazole Antimicrobial Start: 02-24-2024 metroNIDAZOLE (Metrogel) 1 % gel Indications: Rosacea Apply topically Daily 60 g 2 02/24/2024 Active multivit-min/destinee us fumarate (MULTI VITAMIN ORAL) (3 sources) take 1 tablet by mouth once daily multivit-min/ferrous fumarate (MULTI VITAMIN ORAL) Take 1 tablet by mouth once daily. Active take 1 tablet by mouth once johny y multivit-min/ferrous fumarate (MULTI VITAMIN ORAL) Take 1 tablet by mouth once daily. 0 Active Multivitamin With Folic Acid (Thera) 400 mcg Tablet (20 sources) Start: 09-06-2020 take 1 tablet [...] 10 days. 10 mL 05/25/2024 06/04/2024 Active omeprazole 40 mg delayed release oral capsule (20 sources) Proton Pump Inhibitor Start: 12-12-2024 take 1 capsule by mouth in the morning omeprazole (PriLOSEC) [address] capsule Indications: Lewis's esophagus without dysplasia TAKE 1 CAPSULE BY MOUTH IN THE MORNING 100 capsule 3 12/12/2024 Active Start: 07-21-2022 End: 09-02-2024 take 2 capsules by mouth once daily in the morning Omeprazole 20 mg capsule,delayed release(DR/EC) Discontinued 40 MG PO Every morning July 21, 2022 7:40am September 02, 2024 11:16am Start: 07-21-2022 take 40 mg by mouth once daily in the morning Omeprazole Active 40 MG PO Every morning July 21, 2022 7:40am Start: 11-21-2020 Omeprazole 40 mg capsule,delayed release(DR/EC) Active MG PO September 02, 2024 1:00am Start: 07-30-2017 End: 07-21-2022 take 1 capsule by mouth once daily in the morning Omeprazole 20 mg Capsule,Delayed Release(Dr/Ec) Discontinued 20 MG PO Every morning September 06, 2020 1:00am July 21, 2022 7:40am Comment on above: Take 20 mg by mouth once daily. Miralax (20 sources) Osmotic Laxative Start: 09-22-2022 take 17 g by mouth once daily MiraLax 17 gm, Oral, Daily, Refill(s) 0, Prophylaxis Start Date: 09/22/22 Status: Ordered Start: 02-07-2020 End: 09-07-2020 Polyethylene Glycol 3350 (Mi ralax) 17 gram Powder In Packet Active 17 GM PO Daily as needed for Constipation September 06, 2020 1:00am Miralax 17 grams orally at hour of sleep Active Comment on above: Take by mouth once d aily. Dissolve dose in 4 - 8 ounces of liquid and take as directed. predniSONE 20 mg oral tablet (19 sources) Start: 11-14-2024 End: 11-24-2024 take 2 tablets by mouth once daily predniSONE (Deltasone) 20 MG tablet Take 40 mg by mouth Daily 11/14/2024 Active Start: 09-06-2020 End: 09-10-2021 take 2 tablets by mouth once daily Prednisone 10 mg Tablet Discontinued 20 MG PO Daily 0 September 06, 2020 1:00am September 10, 2021 10:58am Please contact the information source for Taper Schedule details. Start: 09-06-2020 End: 09-10-2021 take 20 mg by mouth once daily Prednisone Discontinued 20 MG PO Daily 0 September 06, 2020 1:00am September 10, 2021 10:58am Vit-Fe Fumarate-FA ( Vitamin) 27-0.8 MG tablet (20 sources) Vit-Fe Fumarate-FA ( Vitamin) 27-0.8 MG tablet 1 (one) time each day at the same time. Active propranolol hydrochloride 10 mg oral tablet (20 sources) beta-Adrenergic Severo Start: End: take 1 tablet by mouth once daily propranolol (Inderal) 10 MG tablet Indications: Benign essential hypertension , Paroxysmal atrial fibrillation (HCC) Take 1 tablet (10 mg) by mouth Daily 90 tablet 3 04/05/2024 04/05/2025 Active Start: 11-11-2023 take 1 tablet by jessica th in the morning propranolol (Inderal) 10 mg tablet Take 1 tablet (10 mg) by mouth early in the morning.. 11/11/2023 Active spironolactone 25 mg oral tablet (20 sources) Aldosterone Antagonist Start: 07-30-2017 End: 03-28-2025 take 1 tablet by mouth in the morning spironolactone (Aldactone) 25 MG tablet Indications: Benign essential hypertension TAKE 1 TABLET BY MOUTH IN THE MORNING 100 tablet 3 12/12/2024 Active Vitamin B Complex (7 sources) Start: 11-12-2021 take 1 capsule by mouth once daily Vitamin B Complex Active 1 [...] Start Date: 09/22/22 Status: Ordered warfarin sodium 2.5 mg oral tablet (20 sources) Vitamin K Antagonist Start: 12-14-2024 take 1 tablet by mouth at bedtime warfarin (Coumadin) 2.5 MG tablet Indications: Paroxysmal atrial fibrillation (HCC) TAKE 1 TABLET BY MOUTH AT BEDTIME 100 tablet 3 12/14/2024 Active Start: 07-15-2022 Warfarin 1 mg tablet Active MG PO September 02, 2024 1:00am Start: 09-10-2021 End: 09-02-2024 Warfarin 2.5 mg Tablet Disco ntinued 2.5 MG PO Daily September 10, 2021 1:00am September 02, 2024 11:15am 2.5 5x a week 2 days additional 1mg Start: 08-09-2020 End: 09-07-2020 Warfarin 2.5 mg Tablet Disco ntinued 1.25 MG PO As Directed August 09, 2020 1:00am September 07, 2020 9:58am On Hold: HOLD UNTIL CLEARED BY DR LOWERY Takes 1.25 mg on Thursday Start: 08-09-2020 End: 09-07-2020 Warfarin Discontinued 1.25 M G PO As Directed August 09, 2020 1:00am September 07, 2020 9:58am Takes 1.25 mg on Thursday Start: 02-16-2020 End: 08-09-2020 Warfarin 2.5 mg tablet Disco ntinued 0 .ROUTE .COMPLEX February 16, 2020 12:00am August 09, 2020 11:23am On Hold: Resume on 02/21/20. takes 2.5 mg Thursday thru Thursday, 1.25mg on Thursday Start: 01-10-2018 End: 09-07-2020 Warfarin 2.5 mg Tablet Disco ntinued 2.5 MG PO As Directed August 09, 2020 1:00am September 07, 2020 9:58am On Hold: HOLD UNTIL CLEARED BY DR LOWERY Takes 2.5 mg Thursday thru Thursday warfarin sodium (WARFARIN ORAL) Take by mouth. 0 Active Warfarin Sodium TABS TAKE 1 TABLET DAILY OR DIRECTED BY [facility] Quantity: 0 Refills: 0 Ordered: 06-Sep-2021 DO [...] 2020 9:58am Start: 07-30-2017 End: 09-07-2020 take 1 tablet [...] 2020 8:58am take 1 capsule by mo uth once daily zinc 50 MG tablet Take 1 capsule by mouth 1 (one) time each day. Active Zinc 50 mg tab T yamileth by mouth. 0 Active take 1 tablet by jessica th once daily Zinc 50 MG 1 tablet Orally Once a day for 30 day(s) Active Comment on above: Take by mouth. zinc gluconate 50 mg oral tablet (20 sources) Start: 09-06-2020 take 1 tablet by mouth once daily Zinc Gluconate 50 mg Tablet Active 50 MG PO Daily September 06, 2020 1:00am Completed/Discontinued Medications Medication Drug Class(es) Dates Sig (Normalized) Sig (Original) acetaminophen 325 mg oral tablet (20 sources) Start: 08-23-2020 End: 09-10-2021 take 2 tablets by mouth every four hours as needed for pain Acetaminophen 325 mg Tablet Discontinued 650 MG PO Q4H as needed for Pain September 06, 2020 1:00am September 10, 2021 10:57am Start: 08-23-2020 End: 09-10-2021 take 650 mg [...] 30 September 06, 2020 November 12, 2021 7:54am Start: 02-15-2020 End: 08-09-2020 take 2 tablets by mouth every four to six hours as needed for pain Hydrocodone-Acetaminophen ([place]) 5-325 mg tablet Discontinued 2 TAB PO EVERY 4-6 HOURS as needed for Pain Scale 6 - 10 February 16, 2020 12:46pm August 09, 2020 11:19am acetaminophen 325 mg / oxyCODONE hydrochloride 5 mg oral tablet (2 sources) Opioid Agonist Start: 11-14-2024 End: 11-24-2024 take 1 tablet by mouth every eight hours as needed for pain Oxycodone-Acetaminophen (Percocet) 5-325 mg tablet Discontinued 1 TAB PO Every 8 hours as needed for pain 10 November 14, 2024 November 24, 2024 9:59am amLODIPine 10 mg oral tablet (11 sources) Dihydropyridine Calcium Channel Severo Start: 09-06-2020 End: 09-10-2021 take 1 tablet by mouth once daily Amlodipine 10 mg Tablet Discontinued 10 MG PO Daily September 06, 2020 1:00am September 10, 2021 10:57am azithromycin 250 mg oral tablet (8 sources) [...] mg / cholecalciferol 200 unt oral capsule (11 sources) Vitamin D Start: 07-30-2017 End: 01-09-2018 take 1 tablet by mouth once daily Calcium Carbonate-Vitamin D3 (Calcium 600 + D(3)) 600 mg calcium- 200 unit Capsule Discontinued 1 TAB PO Daily July 30, 2017 1:00am January 09, 2018 6:37am diazePAM 5 mg oral tablet (20 sources) Benzodiazepine Start: 02-15-2020 End: 09-10-2021 take 1 tablet by mouth four times daily as needed for muscle spasms Diazepam 5 mg tablet Discontinued 5 MG PO Four times daily as needed for Muscle Spasm August 09, 2020 11:23am September 07, 2020 9:58am diclofenac sodium 75 mg delayed release oral tablet (11 sources) Nonsteroidal Anti-inflammatory Drug Start: 02-07-2020 End: 08-09-2020 take 1 tablet by mouth twice daily Diclofenac Sodium 75 mg tablet,delayed release (DR/EC) Discontinued 75 MG PO Twice daily February 07, 2020 12:00am August 09, 2020 11:19am dilTIAZem hydrochloride 30 mg oral tablet (1 source) Calcium Channel Severo Start: 03-23-2024 End: 03-28-2024 take 1 tablet by mouth twice daily dilTIAZem (Cardizem) 30 mg immediate release tablet Indications: Paroxysmal atrial fibrillation (Multi) Take 1 tablet (30 mg) by mouth 2 times a day. 180 tablet 3 03/23/2024 03/28/2024 Discontinued (Discontinued by another clinician) docusate sodium 100 mg oral capsule (20 sources) Start: 09-06-2020 End: 09-10-2021 take 1 capsule by mouth twice daily Docusate Sodium (Dok) 100 mg Capsule Discontinued 100 MG PO Twice daily 60 September 06, 2020 1:00am September 10, 2021 10:58am Start: 07-30-2017 End: 03-09-2019 take 1 capsule by mouth twice daily Docusate Sodium (Stool Softener) 100 mg Capsule Discontinued 100 MG PO Twice daily July 30, 2017 1:00am March 09, 2019 12:25pm Durolane (7 sources) Start: 05-18-2018 Durolane 2017 60 mg [facility] (11 sources) Start: 07-30-2017 End: 03-09-2019 take 1 capsule by mouth once daily [facility] Discontinued 1 CAP PO Daily July 30, 2017 1:00am March 09, 2019 12:26pm Start: 07-30-2017 End: 03-09-2019 take 1 capsule by mouth once daily [facility] Discontinued 1 CAP PO Daily July 30, 2017 12:00am March 09, 2019 11:26am Eye Vitamin (11 sources) Start: 03-09-2019 End: 09-07-2020 take 1 capsule by mouth once daily Eye Vitamin Discontinued 1 CAP PO Daily March 09, 2019 12:00am September 07, 2020 9:58am Start: 03-09-2019 End: 09-07-2020 take 1 capsule by mouth once daily Eye Vitamin Discontinued 1 CAP PO Daily March 08, 2019 11:00pm September 07, 2020 8:58am flecainide acetate 50 mg oral tablet (11 sources) Antiarrhythmic Start: 01-10-2018 End: 03-09-2019 take 1 tablet by mouth twice daily Flecainide 50 mg Tablet Discontinued 50 MG PO Twice daily 60 January 10, 2018 12:00am March 09, 2019 12:25pm gluc kiran/chondro kiran A/vit C/Mn (GLUCOSAMINE-CHONDR OITIN [...] 2 mL Start: 03-18-2017 Euflexxa 06 Se p, 2016 2 mL Start: 03-11-2017 Euflexxa 30 Au g, 2016 2 mL losartan potassium 25 mg oral tablet (11 sources) Angiotensin 2 Receptor Severo Start: 09-06-2020 End: 09-10-2021 take 1 tablet by mouth once daily in the morning Losartan 25 mg Tablet Discontinued 25 MG PO Every morning September 06, 2020 1:00am September 10, 2021 11:01am lubiprostone 0.024 mg oral capsule (10 sources) Chloride Channel Activator Start: 11-21-2020 take 1 capsule by mouth twice daily at mealtime Lubiprostone 24 MCG 1 capsule with food and water Orally Twice a day for 30 day(s) November, Not-Taking/PRN Start: 11-21-2020 take 1 capsule by mo [facility] twice daily at mealtime Lubiprostone 24 MCG 1 capsule with food and water Orally Twice a day for 30 day(s) November, Not-Taking Magnesium (20 sources) Start: 07-30-2017 End: 02-16-2020 take 2 tablets by mouth once daily Magnesium 200 mg Tablet Discontinued 400 MG PO Daily July 30, 2017 1:00am February 16, 2020 12:44pm Start: 07-30-2017 End: 02-16-2020 take 2 tablets [...] 16, 2020 11:44am take 1 capsule by [facility] once daily Magnesium 400 MG capsule Take 400 mg by mouth 1 (one) time each day. Active Magnesium Active take 1 tablet by jessica once daily Magnesium 400 MG Oral Tablet Take 1 tablet daily Quantity: 0 Refills: 0 Ordered: 06-Sep-2021 DO Active meloxicam 7.5 mg oral tablet (20 sources) Nonsteroidal Anti-inflammatory Drug Start: 02-27-2018 End: 02-07-2020 take 1 tablet by mouth twice daily Meloxicam 7.5 mg Tablet Discontinued 7.5 MG PO Twice daily February 27, 2018 12:00am February 07, 2020 1:41pm Start: 07-30-2017 End: 01-10-2018 take 1 tablet by mouth twice daily Meloxicam 7.5 mg Tablet Discontinued 7.5 MG PO Twice daily July 30, 2017 1:00am January 10, 2018 7:51am methylPREDNISolone 4 mg oral tablet (10 sources) Corticosteroid Start: 09-02-2024 End: 11-24-2024 take 1 tablet by mouth once Methylprednisolone (Medrol ([place])) 4 mg tablets,dose pack Discontinued 0 PO per package directions September 02, 2024 1:00am November 24, 2024 9:59am PO PER PKG DIR for 6 days Start: 06-22-2023 Medrol 4 MG as directed Orally daily for 6 Jun, Active Multi Vitamin Oral Tablet (5 sources) take [...] 2020 10:26am Multivitamin Act samantha Multivitamin Tablet (4 sources) Start: 07-30-2017 End: 08-09-2020 take 1 [...] With Folic Acid (Thera) 400 mcg tablet (11 sources) Start: 08-23-2020 End: 09-07-2020 take 1 [...] MOUTH EVERY MORNING Oral for 30 Not-Taking/PRN ondansetron 4 mg oral tablet (10 sources) Serotonin-3 Receptor Antagonist Ondansetron HCl 4 MG TAKE 1 TABLET BY MOUTH THREE TIMES DAILY Oral tid prn for 30 days PRN Not-Taking/PRN oxyCODONE hydrochloride 5 mg oral tablet (20 sources) Opioid Agonist Start: 08-23-19 End: 09-07-19 take 2 tablets by mouth every six hours as needed for pain Oxycodone 5 mg Tablet Discontinued 10 MG PO Every 6 hours as needed for Pain Scale 6 - 10 August 23, 2020 September 07, 2020 9:58am Start: 08-23-2020 End: 09-07-2020 take 1 tablet by mouth every six hours as needed for pain Oxycodone 5 mg Tablet Discontinued 5 MG PO Every 6 hours as needed for Pain Scale 1 - 5 August 23, 2020 September 07, 2020 9:58am Start: 08-23-2020 End: 09-07-2020 take 10 mg [...] chloride 10 meq extended release oral capsule (11 sources) Start: 11-04-2020 End: 09-10-2021 take 1 capsule by mouth once daily Potassium Chloride 10 mEq capsule, extended release Discontinued 10 MEQ PO Daily November 04, 2020 12:00am September 10, 2021 10:58am Vit No.471-Tfoq-Zfkzb ( Vitamin) 27 mg iron- 800 mcg Tablet (11 sources) Start: 08-09-2020 End: 09-07-2020 take 1 tablet by mouth once daily Vit No.125-Tkfe-Hmlfz ( Vitamin) 27 mg iron- 800 mcg Tablet Discontinued 1 TAB PO Daily August 09, 2020 1:00am September 07, 2020 9:58am Start: 08-09-2020 End: 09-07-2020 take 1 tablet by mouth once daily Vit No.937-Rcgb-Tjafl ( Vitamin) 27 mg iron- 800 mcg Tablet Discontinued 1 TAB PO Daily August 09, 2020 12:00am September 07, 2020 8:58am vit no.124/iron/folic ( VITAMIN ORAL) (1 source) vit no.124/iron/folic ( VITAMIN ORAL) Take by mouth. 0 Active Comment on above: Take by mouth. Psyllium (11 sources) Start: 07-30-19 End: 01-10-20 take 1 [...] 5:37am Sennosides (Senna Lax) 8.6 mg Tablet (11 sources) Start: 09-06-2020 End: 09-10-2021 take 2 [...] 9:58am sotalol hydrochloride 120 mg oral tablet (10 sources) Antiarrhythmic Start: 02-11-2024 End: 08-26-2024 Sotalol 120 mg tablet Discontinued 120 MG PO February 11, 2024 12:00am August 26, 2024 11:46am Start: 01-26-2024 take 0.5 tablet by m [...] January 09, 2018 5:37am Soy Protein Powder (4 sources) Start: 07-30-2017 End: 01-09-2018 Soy Protein Powder Discontin ued 1 scoop/day PO Daily July 30, 2017 1:00am January 09, 2018 6:37am Start: 07-30-2017 End: 01-09-2018 Soy Protein Powder Discontin ued 1 scoop/day PO Daily July 30, 2017 12:00am January 09, 2018 5:37am tiZANidine 2 mg oral capsule (11 sources) Central alpha-2 Adrenergic Agonist Start: 02-27-2018 End: 03-09-2019 take 1 capsule by mouth once daily Tizanidine 2 mg Capsule Discontinued 2 MG PO daily February 27, 2018 12:00am March 09, 2019 12:25pm Triamcinolone (20 sources) Corticosteroid Start: 09-14-2019 Kenalog -40 mg Sep, 40 mg Start: 04-13-2018 Kenalog -40 mg Apr, 40 mg Start: 03-25-2017 Kenalog -40 mg Mar, 40 mg vitamin b complex capsule (1 source) take 1 capsule by mouth once daily vitamin b complex capsule Take 1 capsule by mouth once daily. 0 Active Comment on above: Take 1 capsule by mo uth once daily. Vitamin B Complex Capsule (4 sources) Start: 11-12-2021 End: 08-26-2024 take 1 capsule by mouth once daily Vitamin B Complex Capsule Discontinued 1 CAP PO Daily November 12, 2021 12:00am August 26, 2024 11:47am Start: 11-12-2021 End: 08-26-2024 take 1 capsule by mouth once daily Vitamin B Complex Capsule Discontinued 1 CAP PO Daily November 11, 2021 11:00pm August 26, 2024 10:47am Vitamin B-3 TABS (3 sources) Vitamin B-3 TABS TAKE 1 TABLET DAILY DIRECTED. Quantity: 0 Refills: 0 Ordered: 06-Sep-2021 DO Active Problems Active Problems Problem Classification Problem Date Documented Da te Episodic/Chronic Acute bronchitis (6 sources) Viral bronchitis; Translations: [Acute bronchitis due to other specified organisms] 09-02-2024 Episodic Administrative/social admission (13 sources) Other reduced mobility; Translations: [Impaired mobility and activities of daily living] 08-24-2020 Episodic Cancer; other and unspecified primary (5 sources) H/O: neoplasm; Translations: [Personal history of other specified diseases] Episodic Cardiac dysrhythmias (20 sources) Paroxysmal atrial fibrillation; Translations: [Atrial fibrillation] Onset: 3 01-09-2018 Chronic Chronic kidney disease (20 sources) Chronic kidney disease stage 3B ; Translations: [Stage 3b chronic kidney disease (HCC)] Onset: 3 11-25-2022 Chronic Disorders of lipid metabolism (20 sources) Mixed hyperlipidemia; Translations: [Mixed hyperlipidemia] Onset: 3 11-25-2022 Chronic Diverticulosis and diverticulitis (10 sources) Diverticular disease; Translations: [Diverticulosis of intestine, part unspecified, without perforation or abscess without bleeding] Chronic Esophageal disorders (20 sources) Lewis's esophagus; Translations: [Lewis's esophagus without dysplasia] Onset: 3 08-24-2020 Chronic Essential hypertension (20 sources) Essential hypertension; Translations: [Unspecified essential hypertension] Onset: 2 01-09-2018 Chronic Essential hypertension (1 source) Essential hypertension Onset: 8 Gout and other crystal arthropathies (20 sources) Podagra; Translations: [Gout, unspecified] Onset: 3 11-25-2022 Chronic Headache; including migraine (11 sources) Migraine 03-09-2019 Chronic Inflammation; infection of eye (except that caused by tuberculosis or sexually transmitteddisease) (2 sources) Hordeolum externum of upper eyelid of left eye; Translations: [Hordeolum externum left upper eyelid] 05-25-2024 Episodic Malaise and fatigue (6 sources) Physical deconditioning; Translations: [Other malaise] 07-26-2024 Episodic Menopausal disorders (20 sources) Primary ovarian failure; Translations: [Other primary ovarian failure] Onset: 3 11-25-2022 Chronic Mood disorders (20 sources) Reactive depression (situational); Translations: [Major depressive [...] Translations: [Spondylolisthesis, lumbar region] Episodic Other aftercare (5 sources) Encounter for [...] hip joint] Chronic Other connective tissue disease (11 sources) Monoparesis - leg; Translations: [Other symptoms and signs involving the musculoskeletal system] 08-24-2020 Episodic Other connective tissue disease (5 sources) Arthrodesis status; Translations: [Arthrodesis status] Onset: 5 Episodic Other connective tissue disease (8 sources) Trochanteric bursitis; Translations: [Trochanteric bursitis, right hip] 02-11-2024 Episodic Other connective tissue disease (5 sources) Trochanteric bursitis, right hip; Translations: [Enthesopathy of hip region] 02-11-2024 Episodic Other connective tissue disease (5 sources) History of lumbar fusion; Translations: [Arthrodesis status] 03-31-2024 Episodic Other gastrointestinal disorders (10 sources) Chronic idiopathic constipation; Translations: [Chronic idiopathic constipation] Chronic Other gastrointestinal disorders (20 sources) Irritable bowel syndrome characterized by constipation; Translations: [Irritable bowel syndrome with constipation] Onset: 3 11-25-2022 Chronic Other gastrointestinal disorders (20 sources) Constipation; Translations: [Constipation, unspecified] 08-30-2020 Episodic Other gastrointestinal disorders (10 sources) Esophageal dysphagia; Translations: [Dysphagia, unspecified] Episodic Other inflammatory condition of skin (20 sources) Rosacea; Translations: [Rosacea, unspecified] Onset: 4 02-24-2024 Chronic Other lower respiratory disease (2 sources) Cough; Translations: [Acute cough] 09-21-2024 Episodic Other lower respiratory disease (4 sources) Dyspnea; Translations: [Shortness of breath] 01-26-2025 Episodic Other nervous system disorders (10 sources) Neuropathy; Translations: [Polyneuropathy, unspecified] Chronic Other nervous system disorders (10 sources) Chronic pain; Translations: [Other chronic pain] Chronic Other nervous system disorders (2 sources) Other chronic pain; Translations: [Other chronic pain G89.29] Onset: 1 Resolved: 2 Chronic Other nervous system disorders (11 sources) Cervical myelopathy; Translations: [Disease of spinal cord, unspecified] 02-15-2020 Chronic Other nervous system disorders (3 sources) Paresthesia; Translations: [Paresthesia of skin] Episodic Other nervous system disorders (1 source) Paresthesia of skin Episodic Other non-traumatic joint disorders (3 sources) Pain in right knee; Translations: [Pain in joint, lower leg] Episodic Other non-traumatic joint disorders (1 source) Pain in right hip; Translations: [Pain in right hip] Onset: 5 Episodic Other nutritional; endocrine; and metabolic disorders (10 sources) Body mass index 30+ - obesity; Translations: [Obesity, unspecified] Chronic Other skin disorders (1 source) Hair follicle disorder; Translations: [Follicular disorder, unspecified] 07-04-2024 Episodic Other upper respiratory disease (1 source) Disorder of the nose; Translations: [Other specified disorders of nose and nasal sinuses] Onset: 3 Episodic Other upper respiratory disease (2 sources) Hoarse; Translations: [Dysphonia] 05-25-2024 Episodic Other upper respiratory disease (2 sources) Other specified disorders of nose and nasal sinuses; Translations: [Other disease of nasal cavity and sinuses] 09-21-2024 Episodic Peripheral and visceral atherosclerosis (20 sources) Peripheral vascular disease; Translations: [Peripheral vascular disease, unspecified] Onset: 0 Resolved: 4 12-03-2022 Chronic Residual codes; unclassified (20 sources) Sleep apnea; Translations: [Sleep apnea, unspecified] Onset: 4 07-21-2022 Chronic Comment on above: no longer need CPAP since lost weight Residual codes; unclassified (20 sources) Dependence on enabling machine or device; Translations: [Dependence on other enabling machines and devices] Onset: 3 11-25-2022 Chronic Residual codes; unclassified (2 sources) Swelling - edema - symptom; Translations: [Edema] Episodic Residual codes; unclassified (20 sources) Patient encounter status; Translations: [Encounter for prophylactic measures, unspecified] Onset: 4 Resolved: 5 08-24-2020 Episodic Residual codes; unclassified (2 sources) Memory impairment; Translations: [Other amnesia] 05-25-2024 Episodic Spondylosis; intervertebral disc disorders; other back problems (20 sources) Lumbosacral spondylosis without myelopathy; Translations: [Other spondylosis with radiculopathy, lumbar region] Onset: 1 Resolved: 2 Chronic Spondylosis; intervertebral disc disorders; other back problems (20 sources) Radiculopathy due to lumbar intervertebral disc disorder; Translations: [Intervertebral disc disorders with radiculopathy, lumbar region] Onset: 1 Resolved: 1 Episodic Unclassified (2 sources) Abnormal electrocardiogram [ECG] [...] pain] Onset: 4 Resolved: 5 05-22-2019 Episodic Cardiac dysrhythmias (20 sources) Tachycardia; Translations: [Tachycardia, unspecified] Onset: 4 01-09-2018 Episodic Chronic obstructive pulmonary disease and bronchiectasis (1 source) Bronchitis, not specified as acute or chronic Onset: 1 Resolved: 1 Episodic Deficiency and other anemia (20 sources) Anemia; Translations: [Anemia, unspecified] Onset: 4 Resolved: 5 08-24-2020 Episodic Diabetes mellitus without complication (20 sources) Impaired glucose tolerance; Translations: [Impaired glucose tolerance (oral)] Onset: 3 11-25-2022 Episodic E Codes: Fall (20 sources) Fall; Translations: [Unspecified fall, initial encounter] Onset: 4 Resolved: 5 08-01-2022 Episodic Fluid and electrolyte disorders (20 sources) Hypokalemia; Translations: [Hypokalemia] Onset: 4 11-04-2020 Episodic Gastrointestinal hemorrhage (4 sources) Gastrointestinal hemorrhage, unspecified; Translations: [GASTROINTESTINAL HEMORRHAGE UNS] Onset: 2 Episodic Immunizations and screening for infectious disease (1 source) Contact with and (suspected) exposure to other viral communicable diseases Onset: 1 Resolved: 1 Episodic Mood disorders (20 sources) Mood disorders Onset: 4 Resolved: 5 09-22-2023 Other aftercare (20 sources) Drug therapy finding; Translations: [Long-term (current) use of anticoagulants] Onset: 3 07-02-2023 Episodic Other aftercare (3 sources) [facility] (current) use of anticoagulants; Translations: [JAIL CURRNT USE ANTICOAGULANTS] Onset: 3 Episodic Other aftercare (1 source) Other termite inspector (current) drug therapy; Translations: [OTH SECTION 8 PROPERTY MANAGER CURRENT DRUG THERAPY] Onset: 2 Episodic Other connective tissue disease (20 sources) Other symptoms and signs involving the musculoskeletal system; Translations: [Other musculoskeletal symptoms referable to limbs] Onset: 4 11-11-2023 Episodic Other ear and sense organ disorders (1 source) Other infective otitis externa, left ear Onset: 1 Resolved: 1 Episodic Other ear and sense organ disorders (18 sources) Bilateral tinnitus; Translations: [Tinnitus, bilateral] Onset: 5 07-26-2024 Episodic Other gastrointestinal disorders (20 sources) Slow transit constipation; Translations: [Slow transit constipation] Onset: 3 11-25-2022 Episodic Other gastrointestinal disorders (1 source) Constipation, unspecified; Translations: [Constipation, unspecified] Onset: 5 Episodic Other injuries and conditions due to external causes (20 sources) At high risk for fall; Translations: [History of falling] Onset: 4 05-25-2024 Episodic Other injuries and conditions due to external causes (2 sources) History of falling; Translations: [History of falling] Onset: 4 Episodic Other nervous system disorders (20 sources) Postoperative pain ; Translations: [Other acute postprocedural pain] Onset: 4 08-24-2020 Episodic Other nervous system disorders (20 sources) Tremor; Translations: [Tremor, unspecified] Onset: 4 09-22-2023 Episodic Other non-traumatic joint disorders (20 sources) Shoulder pain; Translations: [Pain in unspecified shoulder] Onset: 4 Resolved: 5 08-01-2022 Episodic Other non-traumatic joint disorders (20 sources) Pain in unspecified knee; Translations: [Knee [...] (BMI) 25.0-25.9, adult] Onset: 4 Episodic Other screening for suspected conditions (not mental disorders or infectious disease) (20 sources) Abnormal electrocardiogram [ECG] [EKG]; Translations: [Abnormal findings on diagnostic imaging of other specified body structures] Onset: 8 Resolved: 5 08-24-2020 Episodic Other upper respiratory disease (4 sources) Epistaxis; Translations: [EPISTAXIS] Onset: 2 Episodic Other upper respiratory disease (20 sources) Bleeding from nose; Translations: [Epistaxis] Onset: 3 Resolved: 4 09-22-2023 Episodic Otitis media and related conditions (1 source) Acute serous otitis media, left ear Onset: 1 Resolved: 1 Episodic Residual codes; unclassified (1 source) Pain, unspecified Onset: 1 Resolved: 1 Episodic Residual codes; unclassified (20 sources) Edema; Translations: [Edema] Onset: 3 Resolved: 4 06-05-2023 Episodic Residual codes; unclassified (20 sources) History of operative procedure on lumbar spinal structure; Translations: [Other specified postprocedural states] Onset: 4 08-24-2020 Episodic Residual codes; unclassified (1 source) Family [...] UTERUS] Onset: 2 Episodic Residual codes; unclassified (20 sources) Edema of right lower limb; Translations: [Localized edema] Onset: 3 11-25-2022 Episodic Residual codes; unclassified (1 source) Other specified postprocedural states; Translations: [Other specified postprocedural states] Onset: 4 Episodic Screening and history of mental health and substance abuse codes (20 sources) Ex-smoker; Translations: [Personal history of tobacco use] Onset: 2 05-25-2024 Episodic Comment on above: quit 1971; Superficial injury; contusion (20 sources) Contusion of head; Translations: [Contusion of unspecified part of head, initial encounter] Onset: 4 Resolved: 5 08-01-2022 Episodic Unclassified (3 sources) Onset: 3 Resolved: 4 07-02-2023 Results Test Name Value Interpretation Reference Range Facility BASIC METABOLIC PANELon 01-10 Calcium [Mass/Vol] 9.6 mg/dL Normal 8.6-10.4 [facility] Comment on above: Performed By: #### 1 0165 #### [facility] [address], [address] [place] [address] Chronic Condition Nurse: Troy Nunez MD Chloride [Moles/Vol] 102 mmol/L Normal 98-110 [facility] Comment on above: Performed By: #### 1 0165 #### [facility] [place] [address] Chronic Condition Nurse: Troy Nunez MD CO2 [Moles/Vol] 32 mmol/L Normal 20-32 [facility] Comment on above: Performed By: #### 1 0165 #### [facility] [place] [address] Chronic Condition Nurse: Troy Nunez MD Creatinine [Mass/Vol] 0.90 mg/dL Normal 0.60-1.[address] [facility] Comment on above: Performed By: #### 1 0165 #### [facility] [place] [address] Chronic Condition Nurse: Troy Nunez MD GFR/1.73 sq M.predicted among non-blacks MDRD (S/P/Bld) [Vol rate/Area] 67 mL/min/{1.73_m2} Normal > OR = 60 [facility] Comment on above: Performed By: #### 1 0165 #### [facility] [place] [address] Chronic Condition Nurse: Troy Nunez MD Glucose [Mass/Vol] 93 mg/dL Normal 65-99 [facility] Comment on above: Result Comment: Fasting reference interval Performed By: #### 1 0165 #### [facility] [place] [address] Chronic Condition Nurse: Troy Nunez MD Potassium [Moles/Vol] 4.4 mmol/L Normal 3.5-5.[address] [facility] Comment on above: Performed By: #### 1 0165 #### [facility] [place] [address] Chronic Condition Nurse: Troy Nunez MD Sodium [Moles/Vol] 142 mmol/L Normal 135-146 [facility] Comment on above: Performed By: #### 1 0165 #### [facility] of [address], [address] [place] [address] Chronic Condition Nurse: Troy Nunez MD Urea nitrogen [Mass/Vol] 34 mg/dL High 02-03 [facility] Comment on above: Performed By: #### 1 0165 #### [facility] [address], [address] [place] [address] Chronic Condition Nurse: Troy Nunez MD Urea nitrogen/Creatinine [Mass ratio] 38 mg/mg High 01-01 [facility] Comment on above: Performed By: #### 1 0165 #### [facility] [address], [address] [place] [address] Chronic Condition Nurse: Troy Nunez MD XR lumbar spine 6V w bending on 11-24-2024 XR lumbar spine 6V w bending [facility] [place] [address] XRay Report Signed Patient: Elicia Dent MR#: [id number] 8 : 1950 Acct:[id number] Age/Sex: 74 / F ADM Date: 11/24/24 Loc: XD Room: Type: [facility] Attending Dr: Cinthia Xie APRN Copies to: Cinthia Xie APRN Ordering Provider: Cinthia Xie APRN Date of Service: 11/24/24 XR/XR lumbar spine 6V w bending: M54.16 - Radiculopathy, lumbar region 6 views Lumbar Spinewith bending HISTORY: Lumbar radiculopathy. Status post lumbar spinal fusion COMPARISON: 06/22/2023 POSTSURGICAL CHANGES: Stable L2-L5 posterior and interbody fusion changes. BONY ALIGNMENT: Stable alignment HYPERMOBILITY:No hypermobility LISTHESIS:None FRACTURE: None DEGENERATIVE CHANGES: Similar degeneration SOFT TISSUES: Atherosclerosis BONY MINERALIZATION:Adequate XR/XR lumbar spine 6V w bending IMPRESSION: No hypermobility. Stable degenerative and postsurgical changes. Impression dictated by: Mauro Carmichael M.D. 11/24/2024 2:05 PM Dictation Location: [place] [address] Transcribed By: [facility] 11/24/24 140 Dictated By: Mauro Carmichael DO 11/24/24 1403 Signed By: 11/24/24 140 Normal [facility] LIPID PANEL, STANDARDon 03- Cholesterol [Mass/Vol] 245 mg/dL High <200 [facility] Comment on above: Order Comment: FASTI NG:YES FASTING: YES Performed By: #### 7 600 #### [facility] [address], [address] [place] [address] Chronic Condition Nurse: Troy Nunez MD Cholesterol in HDL [Mass/Vol] 62 mg/dL Normal > OR = 50 [facility] Comment on above: Order Comment: FASTI NG:YES FASTING: YES Performed By: #### 7 600 #### [facility] [address], [address] [place] [address] Chronic Condition Nurse: Troy Nunez MD Cholesterol in LDL [Mass/Vol] 157 mg/dL High [facility] Comment on above: Order Comment: FASTI NG:YES FASTING: YES Result Comment: Refe rence range: <100 Desirable range <100 mg/dL for primary prevention; <70 mg/dL for patients with CHD or diabetic patients with > or = 2 CHD risk factors. LDL-C is now calculated using the Alyssa calculation, which is a validated novel method providing better accuracy than the Friedewald equation in the estimation of LDL-C. Bruce BRODY et al. VANESSA. 2013;310(19): 6904-7330 (http://education.Zenbox.RenéSim/faq/AAQ157) Performed By: #### 7 600 #### [facility] [address], [address] [place] [address] Chronic Condition Nurse: Troy Nunez MD Cholesterol.total/Chol esterol in HDL [Mass ratio] 4.0 {ratio} Normal <5.0 [facility] Comment on above: Order Comment: FASTI NG:YES FASTING: YES Performed By: #### 7 600 #### [facility] [address], [address] [place] [address] Chronic Condition Nurse: Troy Nunez MD NON HDL CHOLESTEROL 183 mg/dL (calc) High <130 [facility] Comment on above: Order Comment: FASTI NG:YES FASTING: YES Result Comment: For patients with diabetes plus 1 major ASCVD risk factor, treating to a non-HDL-C goal of <100 mg/dL (LDL-C of <70 mg/dL) is considered a therapeutic option. Performed By: #### 7 600 #### [facility] [address], [address] [place] [id number] Chronic Condition Nurse: Troy Nunez MD Triglyceride [Mass/Vol] 137 mg/dL Normal <150 [facility] Comment on above: Order Comment: FASTI NG:YES FASTING: YES Performed By: #### 7 600 #### [facility] [address], [address] [place], [place] [id number] Chronic Condition Nurse: Troy Nunez MD Basophils Auto (Bld) [#/Vol] Ordered By: Apryl Cardenas on 09-08-2024 Basophils (Bld) [#/Vol] Automated basophil count 0.0-0.2 [facility] Basophils/100 WBC Auto (Bld) Ordered By: Apryl Cardenas on 09-08-2024 Basophils/100 WBC (Bld) Automated basophil % . [facility] Complete Blood Count Auto Di ffon 09-08-2024 Basophils (Bld) [#/Vol] 0.1 10*3/uL Normal 0.0-0.2 [facility] Comment on above: Result Comment: PERF ORMED BY: [facility] [address] [place] [address] PATHOLOGIST CLERK OF WORKS LILY CHRISTIANSON M.D. Performed By: #### C BC #### [facility] [address] [place] [address] Basophils/100 WBC (Bld) 1.0 % Normal . [facility] Comment on above: Performed By: #### C BC #### [facility] [address] [place] [address] [place] Eosinophils (Bld) [#/Vol] 0.0 10*3/uL Normal 0.0-0.45 [facility] Comment on above: Performed By: #### C BC #### [address] Eosinophils/100 WBC (Bld) 0.8 % Normal . [facility] Comment on above: Performed By: #### C BC #### [address] Erythrocyte distribution width (RBC) [Ratio] 13.2 % Normal 11.9-15.3 [facility] Comment on above: Performed By: #### C BC #### [address] Hematocrit (Bld) [Volume fraction] 41.7 % Normal 34.0-46.4 [facility] Comment on above: Performed By: #### C BC #### [address] Hemoglobin (Bld) [Mass/Vol] 14.0 g/dL Normal 11.8-15.4 [facility] Comment on above: Performed By: #### C BC #### [address] Lymphocytes (Bld) [#/Vol] 1.6 10*3/uL Normal 1.00-4.8 [facility] Comment on above: Performed By: #### C BC #### [address] Lymphocytes/100 WBC (Bld) 27.0 % Normal . [facility] Comment on above: Performed By: #### C BC #### [address] MCH (RBC) [Entitic mass] 31.5 pg Normal 24.7-34.3 [facility] Comment on above: Performed By: #### C BC #### [address] MCV (RBC) [Entitic vol] 94.1 fL Normal 80-100 [facility] Comment on above: Performed By: #### C BC #### [address] Mean Corpuscular HGB Conc 33.5 g/dL Normal 32.0-35.0 [facility] Comment on above: Performed By: #### C BC #### [address] Monocytes (Bld) [#/Vol] 0.5 10*3/uL Normal 0.0-0.8 [facility] Comment on above: Performed By: #### C BC #### [address] Monocytes/100 WBC (Bld) 8.5 % Normal . [facility] Comment on above: Performed By: #### C BC #### [address] Neutrophils (Bld) [#/Vol] 3.6 10*3/uL Normal 1.8-7.7 [facility] Comment on above: Performed By: #### C BC #### [address] Neutrophils/100 WBC (Bld) 62.7 % Normal . [facility] Comment on above: Performed By: #### C BC #### [address] NRBC% 0.2 /100{WBC} Normal 0-0.5 [facility] Comment on above: Performed By: #### C BC #### [address] Platelet mean volume (Bld) [Entitic vol] 8.3 fL Normal 6.3-10.7 [facility] [facility] Comment on above: Performed By: #### C BC #### [place] [address] [place] Platelets (Bld) [#/Vol] 278 10*3/uL Normal 150-450 [facility] Comment on above: Performed By: #### C BC #### [address] RBC (Bld) [#/Vol] 4.44 10*6/uL Normal 3.60-5.00 [facility] Comment on above: Performed By: #### C BC #### [facility] [address] WBC (Bld) [#/Vol] 5.8 10*3/uL Normal 3.8-11.6 [facility] Comment on above: Performed By: #### C BC #### [facility] [address] Eosinophils Auto (Bld) [#/Vo l]Ordered By: Apryl Cardenas on 09-08-2024 Eosinophils (Bld) [#/Vol] Automated eosinophil count 0.0-0.45 [facility] Eosinophils/100 WBC Auto (Bl d)Ordered By: Apryl Ly on 09-08-2024 Eosinophils/100 WBC (Bld) Automated eosinophil % . [facility] Erythrocyte distribution wid th Auto (RBC) [Ratio]Ordered By: Apryl Cardenas on 09-08-2024 Erythrocyte distribution width (RBC) [Ratio] Erythrocyte distribution width [Ratio] by Automated count 11.9-15.3 [facility] Hematocrit Auto (Bld) [Volum e fraction]Ordered By: Apryl Cardenas on 09-08-2024 Hematocrit (Bld) [Volume fraction] Hematocrit [Volume Fraction] of Blood by Automated count 34.0-46.4 [facility] Hemoglobin [Mass/volume] in BloodOrdered By: Apryl Cardenas on 09-08-2024 Hemoglobin (Bld) [Mass/Vol] Hemoglobin [Mass/volume] in Blood 11.8-15.4 [facility] INR in Platelet poor plasma by Coagulation assayOrdered By: Apryl Cardenas on 09-08-2024 INR Coag (PPP) [Relative time] INR in Platelet poor plasma by Coagulation assay [facility] Comment on above: INR Therapeutic Rang [...] in Blood by Automated counOrdered By: Apryl Ly on 09-08-2024 WBC corrected for nucl RBC Auto (Bld) [#/Vol] Leukocytes [#/volume] corrected for nucleated erythrocytes in Blood by Automated coun 3.8-11.6 [facility] Lymphocytes Auto (Bld) [#/Vo l]Ordered By: Apryl Ly on 09-08-2024 Lymphocytes (Bld) [#/Vol] Lymphocytes [#/volume] in Blood by Automated count 1.00-4.8 [facility] Lymphocytes/100 WBC Auto (Bl d)Ordered By: Apryl Ly on 09-08-2024 Lymphocytes/100 WBC (Bld) Lymphocytes/100 leukocytes in Blood by Automated count . [facility] MCH Auto (RBC) [Entitic mass ]Ordered By: Apryl Ly on 09-08-2024 MCH (RBC) [Entitic mass] MCH [Entitic mass] by Automated count 24.7-34.3 [facility] MCHC Auto (RBC) [Mass/Vol]Or dered By: Apryl Ly on 09-08-2024 MCHC (RBC) [Mass/Vol] MCHC [Mass/volume] by Automated count 32.0-35.0 [facility] MCV Auto (RBC) [Entitic vol] Ordered By: Apryl Ly on 09-08-2024 MCV (RBC) [Entitic vol] MCV [Entitic volume] by Automated count 80-100 [facility] Monocytes Auto (Bld) [#/Vol] Ordered By: Apryl Ly on 09-08-2024 Monocytes (Bld) [#/Vol] Automated blood monocyte count 0.0-0.8 [facility] Monocytes/100 WBC Auto (Bld) Ordered By: Apryl Ly on 09-08-2024 Monocytes/100 WBC (Bld) Automated monocyte % . [facility] Neutrophils Auto (Bld) [#/Vo l]Ordered By: Apryl Ly on 09-08-2024 Neutrophils (Bld) [#/Vol] Neutrophils [#/volume] in Blood by Automated count 1.8-7.7 [facility] Neutrophils/100 WBC Auto (Bl d)Ordered By: Apryl Cardenas on 09-08-2024 Neutrophils/100 WBC (Bld) Automated neutrophil % . [facility] Nucleated erythrocytes [Pres ence] in Blood by Automated countOrdered By: Apryl Cardenas on 09-08-2024 Nucleated RBC Auto Ql (Bld) Nucleated erythrocytes [Presence] in Blood by Automated count 0-0.5 [facility] Partial Thromboplastin Timeo n 09-08-2024 aPTT Coag (Bld) [Time] 30.4 s Normal 25.1-36.5 [facility] Comment on above: Result Comment: A he matocrit value greater than 55% may lead to inaccurate results in coagulation testing. Patients having hematocrit values >55% require a special collection tube for coagulation studies. Please contact the laboratory at [phone] for redraw instructions. PERFORMED BY: [place] [address] PATHOLOGIST CLERK OF WORKS LILY CHRISTIANSON M.D. Performed By: #### P TT, PT #### [address] Platelet mean volume Auto (B ld) [Entitic vol]Ordered By: Apryl Cardenas on 09-08-2024 Platelet mean volume (Bld) [Entitic vol] Platelet mean volume [Entitic volume] in Blood by Automated count 6.3-10.7 [facility] Platelets Auto (Bld) [#/Vol] Ordered By: Apryl Cardenas on 09-08-2024 Platelets (Bld) [#/Vol] Platelets [#/volume] in Blood by Automated count 150-450 [facility] Prothrombin Time INRon 09-08 INR Coag (PPP) [Relative time] 1.2 {INR} Normal [facility] Comment on above: [...] Performed By: #### P TT, PT #### [facility] [address] [place] [address] [facility] PT Coag (PPP) [Time] 13.5 s High 9.0-12.9 [facility] Comment on above: Result Comment: A he matocrit value greater than 55% may lead to inaccurate results in coagulation testing. Patients having hematocrit values >55% require a special collection tube for coagulation studies. Please contact the laboratory at [phone] for redraw instructions. Performed By: #### P TT, PT #### [facility] [address] [place] [address] [facility] Prothrombin time (PT)Ordered By: Apryl Cardenas on 09-08-2024 PT Coag (PPP) [Time] Prothrombin time (PT) High 9.0- 12.9 [facility] Comment on above: A hematocrit value g reater than 55% may lead to inaccurate results in coagulation testing. Patients having hematocrit values >55% require a special collection tube for coagulation studies. Please contact the laboratory at [phone] for redraw instructions. RBC Auto (Bld) [#/Vol]Ordere d By: Apryl Cardenas on 09-08-2024 RBC (Bld) [#/Vol] Erythrocytes [#/volu me] in Blood by Automated count 3.60-5.00 [facility] WBC Auto (Bld) [#/Vol]Ordere d By: Apryl Cardenas on 09-08-2024 WBC (Bld) [#/Vol] Leukocytes [#/volume ] in Blood by Automated count 3.8-11.6 [facility] aPTT in Platelet poor plasma by Coagulation assayOrdered By: Apryl Cardenas on 09-08-2024 aPTT Coag (PPP) [Time] Activated partial thromboplastin time (aPTT) in platelet poor plasma by coagulation a 25.1-36.5 [facility] Comment on above: A hematocrit value g reater than 55% may lead to inaccurate results in coagulation testing. Patients having hematocrit values >55% require a special collection tube for coagulation studies. Please contact the laboratory at [phone] for redraw instructions. COVID Cepheidon 09-02-2024 SARS-CoV-2 (COVID-19) RNA DAVIDSON+probe Ql (Unsp spec) COVID Cepheid [facility] - Microbiology an d Antimicrobial susceptibilityon 09-02-2024 SARS-CoV-2 (COVID-19) RNA DAVIDSON+probe Ql (Unsp spec) Negative [facility] No Panel Informationon 09-02 POC Influenza A (PCR) Negative [facility] POC Influenza B (PCR) Negative [facility] Alanine aminotransferase [En zymatic activity/volume] in Serum or PlasmaOrdered By: Quita Hall on 03-28-2024 ALT [Catalytic activity/Vol] 13 U/L Normal 7-52 [facility] Comment on above: Performed By: #### C BC, CMP #### [facility] [address] Albumin [Mass/volume] in Ser um or Plasma by Bromocresol green (BCG) dye binding methoOrdered By: Quita Hall on 03-28-2024 Albumin BCG dye [Mass/Vol] 4.2 g/dL 3.5-5.7 [facility] Alkaline phosphatase [Enzyma tic activity/volume] in Serum or PlasmaOrdered By: Quita Hall on 03-28-2024 ALP [Catalytic activity/Vol] 61 U/L Normal 34-104 [facility] Comment on above: Result Comment: PERF ORMED BY: [place] [address] PATHOLOGIST CLERK OF WORKS KALPANA BYRNE M.D. Performed By: #### C BC, CMP #### [facility] [address] [place] [address] [facility] Aspartate aminotransferase [ Enzymatic activity/volume] in Serum or PlasmaOrdered By: Quita Hall on 03-28-2024 AST [Catalytic activity/Vol] 19 U/L Normal 13-39 [facility] Comment on above: Performed By: #### C BC, CMP #### [facility] [address] [place] [id number] [place] Automated basophil %Ordered By: Quita Hall on 03-28-2024 Basophils/100 WBC (Bld) 1.0 % Normal . [facility] Comment on above: Performed By: #### C BC, CMP #### [address] Automated basophil countOrde red By: Quita Hall on 03-28-2024 Basophils (Bld) [#/Vol] 0.1 10*3/uL Normal 0.0-0.2 [facility] Comment on above: Result Comment: PERF ORMED BY: [place] [address] PATHOLOGIST CLERK OF WORKS KALPANA BYRNE M.D. Performed By: #### C BC, CMP #### [address] Automated blood monocyte cou ntOrdered By: Quita aHll on 03-28-2024 Monocytes (Bld) [#/Vol] 0.6 10*3/uL Normal 0.0-0.8 [facility] Comment on above: Performed By: #### C BC, CMP #### [address] Automated eosinophil %Ordere d By: Quita Hall on 03-28-2024 Eosinophils/100 WBC (Bld) 1.6 % Normal . [facility] Comment on above: Performed By: #### C BC, CMP #### [address] Automated eosinophil countOr dered By: Quita Hall on 03-28-2024 Eosinophils (Bld) [#/Vol] 0.1 10*3/uL Normal 0.0-0.45 [facility] Comment on above: Performed By: #### C BC, CMP #### [address] Automated monocyte %Ordered By: Quita Hall on 03-28-2024 Monocytes/100 WBC (Bld) 9.7 % Normal . [facility] Comment on above: Performed By: #### C BC, CMP #### [address] Automated neutrophil %Ordere d By: Quita Hall on 03-28-2024 Neutrophils/100 WBC (Bld) 56.2 % Normal . [facility] Comment on above: Performed By: #### C BC, CMP #### [address] Bilirubin.total [Mass/volume ] in Serum or PlasmaOrdered By: Quita Hall on 03-28-2024 Bilirubin [Mass/Vol] 0.4 mg/dL Normal 0.3-1.0 [facility] Comment on above: Performed By: #### C BC, CMP #### [address] Calcium [Mass/volume] in Ser um or PlasmaOrdered By: Quita Hall on 03-28-2024 Calcium [Mass/Vol] 9.4 mg/dL Normal 8.6-10.3 [facility] Comment on above: Performed By: #### C BC, CMP #### [address] Carbon dioxide, total [Moles /volume] in Serum or PlasmaOrdered By: Quita Hall on 03-28-2024 CO2 [Moles/Vol] 34.6 mmol/L High 21.0-31.0 [facility] Comment on above: Performed By: #### C BC, CMP #### [place] [address] [place] Chloride [Moles/volume] in S pamela or PlasmaOrdered By: Quita Hall on 03-28-2024 Chloride [Moles/Vol] 104 mmol/L Normal 98-107 [facility] Comment on above: Performed By: #### C BC, CMP #### [address] Complete Blood Count Auto Di ffon 03-28-2024 Mean Corpuscular HGB Conc 33.9 g/dL Normal 32.0-35.0 [facility] Comment on above: Performed By: #### C BC, CMP #### [facility] [address] NRBC% 0.2 /100{WBC} Normal 0-0.5 [facility] Comment on above: Performed By: #### C BC, CMP #### [facility] [address] Comprehensive Metabolic Pane maico 03-28-2024 Albumin [Mass/Vol] 4.2 g/dL Normal 3.5-5.7 [facility] Comment on above: Performed By: #### C BC, CMP #### [address] GFR/1.73 sq M.predicted MDRD (S/P/Bld) [Vol rate/Area] 48.966 mL/min/{1.73_m2} Normal [facility] Comment on above: Performed By: #### C BC, CMP #### [address] Creatinine [Mass/volume] in Serum or PlasmaOrdered By: Quita Hall on 03-28-2024 Creatinine [Mass/Vol] 1.17 mg/dL Normal 0.60-1.20 [facility] Comment on above: Performed By: #### C BC, CMP #### [address] Erythrocyte distribution wid th [Ratio] by Automated countOrdered By: Quita Hall on 03-28-2024 Erythrocyte distribution width (RBC) [Ratio] 13.8 % Normal 11.9-15.3 [facility] Comment on above: Performed By: #### C BC, CMP #### [address] Erythrocytes [#/volume] in B lood by Automated countOrdered By: Quita Hall on 03-28-2024 RBC (Bld) [#/Vol] 4.11 10*6/uL Normal 3.60-5.00 [facility] Comment on above: Performed By: #### C BC, CMP #### [address] Glucose [Mass/volume] in Ser um or PlasmaOrdered By: Quita Hall on 03-28-2024 Glucose [Mass/Vol] 78 mg/dL Normal 70-100 [facility] Comment on above: ADA recommended refe rence rangeRandom Glucose Reference Range is dependent on time and content of last meal. Glucose of more than 200 mg/dL in a nonstressed, ambulatory subject supports the diagnosis of Diabetes Mellitus. Result Comment: [place] om Glucose Reference Range is dependent on time and content of last meal. Glucose of more than 200 mg/dL in a nonstressed, ambulatory subject supports the diagnosis of Diabetes Mellitus. ADA recommended reference range Performed By: #### C BC, CMP #### [address] Hematocrit [Volume Fraction] of Blood by Automated countOrdered By: Quita Hall on 03-28-2024 Hematocrit (Bld) [Volume fraction] 38.5 % Normal 34.0-46.4 [facility] Comment on above: Performed By: #### C BC, CMP #### [address] Hemoglobin [Mass/volume] in BloodOrdered By: Quita Hall on 03-28-2024 Hemoglobin (Bld) [Mass/Vol] 13.0 g/dL Normal 11.8-15.4 [facility] Comment on above: Performed By: #### C BC, CMP #### [address] Leukocytes [#/volume] correc deya for nucleated erythrocytes in Blood by Automated counOrdered By: Quita Hall on 03-28-2024 WBC corrected for nucl RBC Auto (Bld) [#/Vol] 6.4 10*3/uL 3.8-11.6 [facility] Leukocytes [#/volume] in Blo od by Automated countOrdered By: Quita Hall on 03-28-2024 WBC (Bld) [#/Vol] 6.4 10*3/uL Normal 3.8-11.6 [facility] Comment on above: Performed By: #### C BC, CMP #### [address] Lymphocytes [#/volume] in Bl ood by Automated countOrdered By: Quita Hall on 03-28-2024 Lymphocytes (Bld) [#/Vol] 2.0 10*3/uL Normal 1.00-4.8 [facility] Comment on above: Performed By: #### C BC, CMP #### [address] Lymphocytes/100 leukocytes i n Blood by Automated countOrdered By: Quita Hall on 03-28-2024 Lymphocytes/100 WBC (Bld) 31.5 % Normal . [facility] Comment on above: Performed By: #### C BC, CMP #### [address] MCH [Entitic mass] by Automa deya countOrdered By: Quita Hall on 03-28-2024 MCH (RBC) [Entitic mass] 31.7 pg Normal 24.7-34.3 [facility] Comment on above: Performed By: #### C BC, CMP #### [address] MCHC Auto (RBC) [Mass/Vol]Or dered By: Quita Hall on 03-28-2024 MCHC (RBC) [Mass/Vol] 33.9 g/dL 32.0-35.0 [facility] MCV [Entitic volume] by Auto mated countOrdered By: Quita Hall on 03-28-2024 MCV (RBC) [Entitic vol] 93.6 fL Normal 80-100 [facility] Comment on above: Performed By: #### C BC, CMP #### [address] Neutrophils [#/volume] in Bl ood by Automated countOrdered By: Quita Hall on 03-28-2024 Neutrophils (Bld) [#/Vol] 3.6 10*3/uL Normal 1.8-7.7 [facility] Comment on above: Performed By: #### C BC, CMP #### [facility] [address] No Panel InformationOrdered By: Quita Hall on 03-28-2024 Estimated GFR (CKD-EPI) 48.966 mL/Min [facility] Creatinine Clearance (Chem N/A [facility] Nucleated erythrocytes [Pres ence] in Blood by Automated countOrdered By: Quita Hall on 03-28-2024 Nucleated RBC Auto Ql (Bld) 0.2 /100{WBC} 0-0.5 [facility] Platelet mean volume [Entiti c volume] in Blood by Automated countOrdered By: Quita Hall on 03-28-2024 Platelet mean volume (Bld) [Entitic vol] 8.5 fL Normal 6.3-10.7 [facility] Comment on above: Performed By: #### C BC, CMP #### [facility] [address] [place] [address] [place] Platelets [#/volume] in Bloo d by Automated countOrdered By: Quita Hall on 03-28-2024 Platelets (Bld) [#/Vol] 219 10*3/uL Normal 150-450 [facility] Comment on above: Performed By: #### C BC, CMP #### [place] [address] [place] Potassium [Moles/volume] in Serum or PlasmaOrdered By: Quita Hall on 03-28-2024 Potassium [Moles/Vol] 4.3 mmol/L Normal 3.5-5.1 [facility] Comment on above: Performed By: #### C BC, CMP #### [facility] [address] [place] [address] [place] Protein [Mass/volume] in Ser um or PlasmaOrdered By: Quita Hall on 03-28-2024 Protein [Mass/Vol] 6.3 g/dL Low 6.4-8.9 [facility] Comment on above: Performed By: #### C BC, CMP #### [address] [address] [place] Serum globulin measurement b y calculation (mass/volume)Ordered By: Quita Hall on 03-28-2024 Globulin (S) [Mass/Vol] 2.1 g/dL Normal [facility] Comment on above: Performed By: #### C BC, CMP #### [facility] [address] [place] [address] Serum or plasma albumin/glob ulin mass ratioOrdered By: Qutia Hall on 03-28-2024 Albumin/Globulin [Mass ratio] 2.0 {ratio} Normal [facility] Comment on above: Performed By: #### C BC, CMP #### [facility] [address] [place] [address] Serum or plasma anion gap de terminationOrdered By: Quita Hall on 03-28-2024 Anion gap [Moles/Vol] 7.7 mmol/L Normal 6.0-15.0 [facility] Comment on above: Performed By: #### C BC, CMP #### [address] Sodium [Moles/volume] in Ser um or PlasmaOrdered By: Quita Hall on 03-28-2024 Sodium [Moles/Vol] 142 mmol/L Normal 136-145 [facility] Comment on above: Performed By: #### C BC, CMP #### [facility] [address] [place] [address] Urea nitrogen [Mass/volume] in Serum or PlasmaOrdered By: Quita Hall on 03-28-2024 Urea nitrogen [Mass/Vol] 28 mg/dL High 7-25 [facility] Comment on above: Performed By: #### C BC, CMP #### [facility] [address] [place] [address] [place] ISTAT XRay CREon 03-05-2024 ISTAT GFR 52.728 Normal [facility] Comment on above: Result Comment: PERF ORMED BY: [place] [address] PATHOLOGIST CLERK OF WORKS KALPANA BYRNE M.D. Performed By: #### I SCRE #### [facility] [address] MR lumbar spine wo/w conon 0 03-05-2024 MR lumbar spine wo/w con [facility] [place] [address] [place] [address] MRI Report Signed Patient: Elicia Dent MR#: [id number] 8 : 1950 Acct:[id number] Age/Sex: 73 / F ADM Date: 03/05/24 Loc: MR Room: Type: [facility] Attending Dr: Eriberto Davis MD Copies [...] Jonathan Patiño M.D.03/05/2024 5:03 PM Dictation Location: [place] [address] Transcribed By: [facility] 03/05/24 170 Dictated By: Jonathan Patiño II, MD 03/05/241657 Signed By: 03/05/241702 Normal [facility] No Panel InformationOrdered By: Eriberto Davis on 03-05-2024 Bedside Estimated GFR (eGFR) 52.728 [facility] Whole blood creatinine measu rementOrdered By: Eriberto Davis on 03-05-2024 Creatinine [Mass/Vol] 1.1 mg/dL Normal 0.6-1.3 [facility] Comment on above: ER/ESD physician is notified/shown all ISTAT results.Critical values may be confirmed by laboratory testing ifdeemed necessary by ER attending doctor. Result Comment: ER/E SD physician is notified/shown all ISTAT results. Critical values may be confirmed by laboratory testing if deemed necessary by ER attending doctor. Performed By: #### I SCRE #### [address] XR hip RT min 2V(w/wo pelvis )*on 02-11-2024 XR hip RT min 2V(w/wo pelvis)* [facility] [address] [place] [address] XRay Report Signed Patient: Elicia Dent MR#: [id number] 8 : 1950 Acct:[id number] Age/Sex: 73 / F ADM Date: 02/11/24 Loc: [facility] Room: Type: [facility] Attending Dr: Demetrio Devine II, MD [...] COMPLICATION.. Impression dictated by: George Bernabe Jr., D.OBekah02/11/2024 3:36 PM Dictation Location: [facility] Transcribed By: [facility] 02/11/24 1536 Dictated By: George Bernabe Jr, DO 02/11/24 1536 Signed By: 02/11/24 1536 Normal [facility] XR lumbar spine 6V w bending on 06-22-2023 XR lumbar spine 6V w bending [facility] [employer] Other XR lumbar spine 6V w bending [facility] [employer] Other XR lumbar spine 6V w bending [address] [place] [address] [facility] Other XR lumbar spine 6[place] [address] [employer] Other XR lumbar spine 6V w bending XRay Report [facility] Other XR lumbar spine 6V w bending Signed [facility] Other XR lumbar spine 6V w bending Patient: Elicia Dent MR#: [id number] [facility] Other XR lumbar spine 6V w bending 8 [facility] Other XR lumbar spine 6V w bending : 1950 Acct:[id number] [facility] Other XR lumbar spine 6V w bending Age/Sex: 72 / F ADM Date: 06/22/23 [facility] Other XR lumbar spine 6V w bending Loc: XD Room: Type: [facility] Other XR lumbar spine 6V w bending Attending Dr: Farnaz Gonzalez WASTE REDUCTION COORDINATOR-C [facility] Other XR lumbar spine 6V w bending Copies to: Farnaz Gonzalez WASTE REDUCTION COORDINATOR-C [employer] Other XR lumbar spine 6V w bending Ordering Provider: ASHA LingC [employer] Other XR lumbar spine 6V w bending Date of Service: 06/22/23 [facility] Other XR lumbar spine 6V w bending XR/XR lumbar spine 6V w bending: M51.36 [facility] Other XR lumbar spine 6V w bending XR lumbar spine 6V w bending 06/22/2023 11:15 AM [facility] Other XR lumbar spine 6V w bending SIGNS AND SYMPTOMS: Low back pain with pain in the sacrum. Numbness and tingling in lower [employer] Other XR lumbar spine 6V w bending extremities with pain [employer] [facility] Other XR lumbar spine 6V w bending PROTOCOLS: Frontal, lateral, and flexion-extension views of the lumbar spine [facility] Other XR lumbar spine 6V w bending COMPARISON: 11/15/2020 [facility] Other XR lumbar spine 6V w bending FINDINGS: [facility] Other XR lumbar spine 6V w bending There is similar posterior fusion from L2 through L5. Vertebral body heights are preserved. There is [employer] [facility] Other XR lumbar spine 6V w bending mild disc height loss at T11-T12 with anterior osteophyte formation. There is no fracture, [employer] [facility] Other XR lumbar spine 6V w bending subluxation, or pathologic movement. No hardware complication. There is evidence of prior [employer] [facility] Other XR lumbar spine 6V w bending cholecystectomy. The sacrum and sacroiliac joints are normal. [facility] Other XR lumbar spine 6V w bending XR/XR lumbar spine 6V w bending [employer] Other XR lumbar spine 6V w bending IMPRESSION: [facility] [facility] Other XR lumbar spine 6V w bending Unchanged posterior fusion L2-L5. [facility] Other XR lumbar spine 6V w bending No pathologic movement on flexion or extension. [facility] Other XR lumbar spine 6V w bending Impression dictated by: Jonathan Patiño M.D.06/22/2023 2:44 PM [facility] Other XR lumbar spine 6V w bending Dictation Location: [place] [address] [facility] Other XR lumbar spine 6V w bending Transcribed By: [facility] 06/22/23 [facility] [employer] Other XR lumbar spine 6V w bending Dictated By: Jonathan Patiño II, MD 06/22/23 [facility] [employer] [facility] Other XR lumbar spine 6V w bending Signed By: [employer] Other XR lumbar spine 6V w bending 06/22/23 [facility] [employer] [facility] Other Physician Orderon 02-18-2023 Physician Order [id number]:1 [id number] Normal [facility] Postoperative Documentson Postoperative Documents [id number]:12 7 [facility] Operative Reporton Operative Report SURGERY DATE: [...] in good condition. Cathie Gomez Jr., M.D. Dictated: 09/25/2022 [id number] Transcribed: 09/25/2022 [facility] Comment on above: Result Comment: Elec tronically Signed By: Patricia YANG, Cathie \.br\Date and Time Signed: 10/02/22 09:24 EDT Coding Summary.on 10-01-2022 Coding Summary. CD:[id number]:[id number] Gh0bW w+PGhlYWQ+DI1GQLPbG39ztNT ohT4tG5XJFRqKEuraQDOJUUgB MzXvscSeNC9wjXWeXINx IC8+FM3xIEOtSqvdhQEda9K4g TB9O51lyo0zIIpqiAP9DDKsPg Xzzrhzd8yqkPd9LEvzJouqVwC t UEPbrJ42BOY9dB08Bc22zGKtw TPgz1reeNe6ZeCpKGPpNOP5jA uqMGlog1YrQGGpK88yxALai1J 6 FZWerInzbRSkNxSmaQF3tC3vL Sperczwl3qvraofOso4xk75eE Lfx3T5fUV6N9YeoeM3OTFlmUF g VtmcwFEUxL2phudny5ctqlwmL oEeQYJiOGz4HVk5EGAayKgjXy JbTY75ZYG5LHGnfsQkK4WtUFZ s gBeyOqT0i0X3On4ZJ3XZAquwS 1VNTUFSWTwvdGQ+FO56eq25H6 LkNddlIvc3BPAjBVL9nLA4pO8 n CQLpSVerq4S6eOT7M8DgosLvm t4az3isDOWqGKbcY57ruTMvf2 T8UFTcmKP2WJSikGzuBdYmwZ9 3 Oyc+QBZqpArdx1CwXxqbh4zbl 5otcRs1BzfuDWQuynEwyQdiWD O4e9AuTr6qQZPocNR0hKU5rO7 i EuHaNfV6NAwkY900XxZbfUGcB ldlZ06vV1IxsJJ+NBJtRgl5QH SvvPduWQ7bK3ScDSKnigxpgBA m fCpvPX7tHMNvxnieISAyhP6gV JHcI0d6TyCwBtI0NXhtL2HlEL SgelapMn54gF0oDiBlGkE2UPj u F0RjvzY0LNFydTCaZZazAGP5G 82uc9T1ARAeKBJkCBU0uFJ2uT 1hbGlnbjogbGVmdDsgdmVydGl j RRmyGOkyT262OTZicXtkYyVjT GluZyBEYXRlOiAgMDMvMjIvMj AyMzwvdGQ+BTVdRXT8mPtiSZU n tKKvOJyiDc3ttPuflDjvYM6yK LWpkhhySIFylH3cJKQwyCHpeU tdHR5tPWYtetluc872JfTlPNJ 0 RJYnfDHdT9CwvJ6rToCrPARaC XMnO9HewHNrSZiaI967JBuwQm A7NBHsrxUjQ2ChATCmaWhhWfX 0 z5P7Tf1Mt9PcnftzI4XsmDMjM jWhAbzjJZb2J6HxQgnqjNB+PC 68WGUtIJ46BAb3SKU8tIinTOs i BHHdD5OviG0dPxFkGFUqEAHwE yc+PHRhYmxlIHdpZHRoPScxMD SiIqNnaWioMA3nYl0sQLUzSKI v mLqsnFSwIpYtu2ivWIRwRXlpI V7dlWdlX8SqlSW3XFCyz1j3Sz 77G52dN4LgpMQ+BCCwoFY8gDY 0 iY3dJlMzXfR9KZsaL063OgWjj BDtTodnu7dhx8ouqAo7FvM8FF DqrdDpjMznAAU7j3VeEn27Y02 s IHdpZHRoPSIxNSUiIHZhbGlnb l3otU3pXh1+RMHuuTL7zVQ5rA 4uUfCbFwC9VXpvG556HoGzzXU v Lgwki6zqx4bmpGt7IzNuNJFtv lDfoXasLJX3e3HrKf52K8McyJ yvz7DmOsw9sp76rBDnf4B6iEA 9 O6EaOMHuiaiuvFFrxSksJL0rK PHhbafcOHVplR0nELGdV4l2Da HrRbH8KVanK0QsbkW5SQHgiBI g TAHwyYBGqV5ntuayf9wnnsocB lQkRNUtCVh8QMr0JDNkuIthEi HqUMD9UmA8QMF9fPHalW2jbVt n lvnmwN2bVyk+NTR7iHRxqVBJC P6nQlljuOV+OPQgRQH2kFhzFF qcZDKjwT4rSSBsF8v1XvGoOhN 1 JVaoP9KqfbG2MGZvrISjMIZwt BQBuH9wbsryx5rhdobzVzDvLB HvOMg3VYk9KJYfnBqmXbUrVSK 0 ToD1YBE1yGSueW0vtIwjfomgj G9wOyc+LobizFtwSOE3DKk8Q7 GcUhr4YIIfuDxyIW3gePZfIOf u Rf0tuFsxwAmbBV6pMQKjeejde 597GyLbp4tbYVNpbKLdDNfvPM J0N60yh2Z9SNFnVGNbFNT6mJJ 4 iR5saGmsucdhzDTaxEtukpAki XwxRUdnBKrrV450SUSkvEwlNn ObNRw1X0QcBsy6BQGtzEtwEX5 n cZDpWCbpSa7brQjmiXepCP3gD MRgmwoyb805SxBbr2cyDGTzfL RePFkhIDJ3G38qu3Y1WXKrVSQ w SVK8zRN9zR4vhCgivctuoCUau BbsmcVboSfcUPugNAcvF928RY KojXkfAyIzuPm5T6UoEwk3SMB z jOcxZW9vtMPpKWxjQq9raYuma PtwOT2xUFOpvfsjr810YuZwq8 zdLGZyrWAqNHbyGSA6R10ep8X 6 TNPmYFIpYDW0gBE4sX8msYfem jogbGVmdDsgdmVydGljYWwtYW crW525WPFcyXznGbGuiEpdovB g XHxjJBp7Y2XxLgwtvBT+PC90Y CCoBS43eMDojLYvt0ijdYf3Nb WySVIsUVK4zVbwMWerd6HsFPP t H30hvFPut4V8EPKudJlacHCoA mFalOR3wM7dONkdgrzoq3gizx knBlawl0vyac51qX50C49vIId p EQBlPIGvRBWeFZVabBqmmo8sm G9wIi8+SRDvgVU3kDR8fG9zZS LaSbY2VUdhQ942RhSctYZnCln j e5ucr9gzhXp7RrD9IPCmsvZut ZpvRHP9y4DuQp51L92nOUbcAZ QqTRDtJDFjWYTlpWdfqh2hgT9 w Ii8+EMUqlYU1sAG5yN8tXjLvO tC1MSlvX689EoSmnCMlPqeiO5 8sQ8SgnGM+FTIbEuw2WQVwbZi s RA5acZQmYFueCv3wRHL1GbBqU jUlLAppS7CjSNLlevrnaxvqyZ F7KSLpMKVydD32Zc1cbRhoJOP w oFMUpS7jplwdb3zxnzcmBpElL RPdNKc6DSb9ANXdmRsxKmHeBR Q6TyZ6YNQ3aJXwaG8zmAmymqy g fA7zQ3MpXOLslyxwRp15gX2uP lJuHoC3ISwdAlv+V1EVFkIcIF pSZcVEQF93QZ78vZAab1W0aUQ 9 K4WaPIFahlgytycnbVL5QHSpE SZuvS14eZWcMInuAx8xi9V5u3 00CHXxDUMugD91Ai0xhEvmQFK w eDKQlL7ngtvek4amyblpSiTpW PItMUd4GHr9HPNwcZrlZvSfYM T0QfY2NBN8nGGffQ2tmZazbvm g zB8hYnn+KPYfQoBqLOq9LHecv GQ+XGFaXFG7eTxmFIjxICJnmX 0vAYUtG5a6JtHpYdN6DQowT9U h GQKxdklnDu04cY9iRqNsNjW4M CknV7MgpfO6IRFifYKvSZvvHQ I3U24tp7U1GCRzKSJdOYV9jSI 4 sX9pqZauyhchyHGyuFljbrXuq SmfOPmiBLvaH613NHWxuNfvWr umHBquBVCrUS02DZ72vUIvw8T 5 mBU0T2XpWDTbzeyzqgsitZB3Q PZdFGHqbC42mRKhQLchMo0io2 M1t306UCEgIKLtkK63Jq8dnYc g MVAbrXIQhC1hhicui4vgewpaX bMvWYWtMBb7UWj6YGXrzBceWb BwNGB5MuD8PUM7zNCuvC6hsRb n crdmfX8oRad+WbYwJXzcLI82M S64kYKcw3P2xYA0J8WlORGovw xhkmfkuZH6IUAvBLUsgQ54eMJ k GWirJx7cg9X4j893RBBzOVKlq K26Nl3owWuhLZFkkVTPxI8ast xdb0slqetjRkMeIWDxCCs7XLu 0 EBKirEadWlThTBG5UrR3EFS2k UCojQ1liAthagqrfA0uLcj+T3 S6lHC5wWYgoJecpYO+ZY65ar8 8 U9GkOhmlZqq8GUXzOTB6zWK2l G9uTNTpDEdmx2E8oES6V8Fqpa Taat8sr4cuCBBfGJkuS25vjIV w i1G0GRTerPB1ZZLhqBtsPiMbm G93Oyc+QYVatCglm4DlLtkpm7 cyn7ywxMs2SrEfQKItwrVacWz u FRK2a4RfHz79M06cRFvxZQHlT XQsISPaFGXzgTkrdw9kmF2oHi 8+MJOyaQV2mVY2xC1mQgXkWqY 2 ALmgB452ZrKpgJXjLbanz9itt 8fkgPd8NhFcILSppmSqnCgvCL Q4s6TxYy92G8LilVaps4FvGkt 0 xb51aINzw4F6qUM7B9VvMBAns fiswTExdCuuQA7kROKlbkvdUO HstZ5mLGYvR1u7UsBeXiP4PNn u Q4IbphT1EJNkmHZhHYTuoMVEf H9heefhv9rcvgevUhSnZGKmXR r8NHe3TVWawKcsGsReKMM2UfG 2 LGW6qEKybK3zgIrzfglgsD3eL yc+LXt8r4ixoDUxVH0mrGF9SD 41MX93wCLhd7Z4dEZ4J5YgCBC p febiijpmbIA5XBVvWJHgkR25L r3fcHwcPx2nOLWhANS2QYXsqX OpW1VuoE0iNkOwGGHfTWUyL9T l mOLjKAuvT082FKjtLhM0IFUbm hKfN9MuGKDrkCjeVqA3j0S5Dk 3FJL17QK19EC76pNTzp4J3zCQ 9 F5AxBVFrascgwhwhnLA4MVEwY ZKwbY02Mc8xiNqsOa2nWWQkLW C0ERHfyNNmZ0YldA3gXkLgZFN w PAFmY2HviARdPQnrY821FVztK eI1OWTmqcNgX2WrSLSmoWlsQc Q0p3Q0Ql5WNq26AD85LN90kCM g q7M6dMY1I3JlSPFztpotcjllq YF3LBXuQVXvcJ00Ad9tpQiqJf 2kOXOcILQ6WIYldSWnO5BteV2 y XyMgWWTxYTYtV8JywVNoRLlnS 543VRpuUsU0YQGuuoVvX0UwZX OslLkbUzC8b7C4Oa8FIGobqgz 8 L2XzAonghJP+LF49JIQnDS44a DGhkRJvy8mxhLd4NwBbVADzPL W3xTakLBsfa5CbOFFoL94uvIJ w c2U6 (more content not included)... [facility] Coding Summary.on 09-29-2022 Coding Summary. CD:[id number]:[id number] Gh0bW w+PGhlYWQ+QT1GJLKrA73fzAQ msD1tF6BFCCsQFcfgLLHTXClN XgLpriWhQV1vqQKoNZOk IC8+OQ4bOEAlOvfjtFFhy4C7y KZ0Z42ncg9nISqbeUC8INNxSa Hikdkst8amnLv1LKcfMpvkPoR t TUEkvX48DUG2uM82Hd84hRScu BIze5lsfNv2UjTfNADaVGJ9dQ msOGryc1VfUAGeA54tsMXco2E 6 SJLwnAhqmZCjHqDuxZX0sJ4gQ Lohuocdy1dmshzeGjb6ww40yL Pyg6N5rEJ6J0NekpE0FNLakYI g TpefoFHDzU2nkacud4beiryhX iKcWGQqGDt0WPy2AVRgsUgxQa ZyVL32SWK4FDHnzxNbL0LvXXT s xQwjEmU6k8Q2Sr8DG1QOHybmM 1VNTUFSWTwvdGQ+XJ29wr70O7 IoPpywMku0EHTlHQG3wFQ7bD4 n XGUgWXrvp0U5hSG1H0GcqqCgs c5ox7odPPKcYTxpJ94orPNox6 C4FMVhaQN3LBCxrYgiUuGblE5 3 Oyc+LIIvkKiuj4WpIcnpn7uev 7ggwGl2JauiTIZfspHhdHrnIJ G4d6ZyUj2mSYBhkJV0zBH9sK8 i JvEyFlS7VYypM327UoUrrMEuY uheE56hY6SagAT+PCDuMzw8HN VxkCsxHC6sR6UoZGQqedmqxJI m rYdlTB8dUPAcvtclCQCtoD3qN EEdP9t0XaRzSpD0TUwvR4DsUY QathaxZh15fO6bYxEiUvI9PKz u C0YpqzK0XHXrxLJiKFljDLW8V 26ve1Y6CINkTQWrNYI6nUT6tS 1hbGlnbjogbGVmdDsgdmVydGl j DCrnOJtqX675SEMnlTozOqEpA GluZyBEYXRlOiAgMDMvMjAvMj AyMzwvdGQ+YHWsYDP9cHnnHRM n kFAuYRqfFg2ueStqaZbmYN3kS ICwnqomAVQfnM9hUHYdcWAxwS gnNZ6uPZUsmsrbv651CxLyYTW 0 PODsuWPpM4MkqQ9xAhTnQYUdT QXuV8NbsNGtJOotZ260EEivNj X5URHtayPfR6FfKYMgiKkjKyI 0 t9A2Eh7Qj0AsaqpwO4WmbNPlW pEtGdzfLEe8W7ArChiuwDL+PC 71SYVkNH63BOy7LXU1sQajKGx i DZJsK9AlsB3oYlAzMYLhWQWbJ yc+PHRhYmxlIHdpZHRoPScxMD HgJhSflRodJP7dNa6jVLJzDUN v xNcxqDQpArWfc4csFULyCQtvX X1vnPkcS5XwoNL8TUHif1u8Ma 64G26vT4TbuTW+ASIxjJP3aWI 0 xC3zCrIkAmD7ODuhC625XdWlp FTtTwhbp7lue2urfJr1GxN8XN IvmePwxUkzTDJ1i2WhHv16W92 s IHdpZHRoPSIxNSUiIHZhbGlnb f2vqW9oPl6+HJMvnJU6dCP5oN 2wZvQsXfA2ZIvlB730UuRnwCT v Gnqrq8qqj3jetZd3JhKtINFhk lYsjEtmRPH5c8YoLk03G4RmlS ioj2FhBnn5ja39yIQht1R9yHY 9 P0HgRUEmexcqbACdaYwoBE6vI RArsdadCGMiuJ1mXYMnV2j7Pn YdTdK4IIjkY7XhztZ8ZIZboVQ g GTVqvXCJuL4bxbmir1pvovvvF xFhRIWjOPm9PSh0VBHflFkyNo ZlIIQ8BlK9JTN4mPWdaL8hsPp n donpyY8jPzx+EKY5kIQksEXNN M4bCblkaMC+UXOtWPN9aMcgUB niLPKpfP0nTNSoM0l9VgZwMmO 1 OSnrP3JnfvK9ONTyvSNpNEJgu XVDoI6nhcxpp9bdofnePtOjKF SiIPi1QTr3HYVzhCmlHbShLUB 0 JiL8HZC9lHDswC9zzBhyawyek G9wOyc+JlatsWzuMKX9AQg2K9 EySuf9EJTbfUuaVL1dnUCyLXg u Zs2exVzkcNxmOG0lDSBnvcnjo 998PtPvx4rhSDKuhDHeHDvtJO U3K33nl8E6FIWjGUPzKKD5sDY 4 zO3kkUlcrqltnECqcGlzwgCjs CrdREjfEJvwP407UDWesMfcZv DbVTb4S1ZgJrf6HUHbfGbcCN3 n gDByGJsyZf5olPqyrRugEO1uF HQogtmzj672EcOgy3kyNRIydK BoNZzfUKO8P87oe0W0SIRxEGC w PCI2sQK9zK3muEowwgexpLKep SzkakAjkTfkXDekURyfR157KH ZbqCimBsAduVh0J8LvZzs1UBY z vTroOZ9elWTcFMgnHc5amSlpf GzlBO8xCYIyjaxfq330UoOvn7 qcNCJzpYUxJHddKEY2I29ol0M 6 PSIyIYCjCIB2pTQ5cW3mcEwiq jogbGVmdDsgdmVydGljYWwtYW ohX326XHUhpYudWmAjvXglwoE g TOsiRNv5Q4SfVokziHK+PC90Y TTmPM25xJYtcQJqi9bnmIb6Io ZfNAJvWKJ9vOvsIGipz8UpSOD t Y18ezZDhj4A9RLZfnDufsSEbT vAqaYU6dD2zZZlkbamee2jnua mjSpeqx5vsot41hL39H80iGIx p IHUgOPLhEWKuDIJvxKsrbp5mv G9wIi8+UVFktYP4lIF5lX4kGX FfMtM7FMyzH442CpTlcQNbUpj j d3lhn0lyhEb5DmF5TRPrskXbp FrlJLH7k7JvBu63A94qOCkmTA WhFZDeQTGnIFUysHkjsb7zeS2 w Ii8+GBLicKX8kHJ0iJ4eVuKoE qK2JSpuO963DfVhjFKiOsueS6 3sQ4SteTV+WFQqUgl6APZmgXv s DX2qfNKhCLbkUl6tAYG3AqCwS gJxPToqK8AlADYjkiosxlppuX O8WAMpGORcvY94Qy4qqIlqSRS w gYSKfG0culdbu9zpoynsVbEmV KVjNJt0RJj7GURasZhbWwFsBJ S3RwC9PLJ1sCNukM6neTpltvp g nW5oW7XnXHGfnqmeHt32fN4nY qPkBgN1CWyaAwz+O5UQKeEpSO uLIwYDWR89HM07uVIet5Q0vGD 9 R6PvOQImazmgaiqaaZV6RGWvG BBhsF63oBCgKBgbZk5kn7O9z9 31UXMrFVJmqL80Sd3rsRkuTNX w cEUKmW2rliect1mbjzjbOqArH IJpURu8XQv5KXHffOktVfVgMT V5LlY5EZM3tTYurH2baNbiabc g mN8pLih+LHNiShCxDZx1WNuyb GQ+BVLtSTP6hLqlZBtqINTldW 7eDMOrC0t5HhCvCcT8DEutM9C h MBRniyjrNb13pU5hYiLmFcG5A XkqS1TkggV4AVFbjHQaITaoJC X2D65ib1K6JIGzVRBnMIJ7ySP 4 rO2iaUrrdbashXUwmRvynlVnf DkeYCtaYOhaV877PBKmeSjyUt yiOYguRDRxRW78BC22iAAev7S 5 bOX9E4HvXHAcghmwaxkseZL2H WPsGFDyeP59mEJoJRvsKr2cz2 Z2v183ZAXeKYVwtW89Yi9qzBj g EACneSUOmD6mlfwtm6ordjhzA rXbMGYfERh2ZQr2KAHsfKlkLc SlIMP5CeL6DCP8eRNmpB1vxYs n lputjO6bYhw+VxQlLVdoDQ28H A45wBCzj7K5tSX2U5RbAYZoem rekzxrkDV8XKNnZRJjyV22zBM k RBvaSb0xs7C0p135RILwSVUaa F96Bd2yfGetOJOspRKUtW2fht pkx5wfhggaRlLbCWUfOJm1QDi 0 POAwuEzzPnLaATQ9EgO7KBF5p AJmoE3gvYejvfuvlH5jMtf+QW 1soTpiqT8pmX1HHK2vUGUsuBY T gFIvUND1IR80LE53A0HlMskve GFibGU+PHRhYmxlIHdpZHRoPS bdVVMaTeJqgVnqUA8mFo7aFEW y WRHfvTnwkCTmPlXey0frXBByZ BfjNC1tzVfdM0HbkPT5JZTvv8 p2Gi03U25gP7TqrRE+PGNvbCB 3 tXL2kM8vEaCgAcT9SUtaI751F iYtiYGrSgbdl7ggn3ykePa0Dq KjWHSpgdBhbUrrABD8u6IpIp8 8 X25aDVieLSAlADHbCCDmOGBka Lvrsp6twX4tFx7+GTBtjOQ4cO S2kK2bGuRrFnU7ZTkoS060XhR v tHPtIaixE15dB2GulAF+PHRyP cp3YIAovUriRK6cfQZqNLcgIm 9iQFZ6MwKrAdEfMIayI5IzEXU p abmbcuypmUG9NYNwCSNshF58D t2zwTciKr3iBIGgEZX3ZAWklZ GdV3HtnB0hWzNkATKyADJsL0O l rSQiJYymM393IRltSyS3CGTot pLeD9EwRPIbiFlcVmI4d7H8Lt 6TrQwolNFxQC5qZrWdTRm0Z0B k Mhc7XPEqaRvdOJ0epKVsCUqbU u1qqRghaMtxBH0fIVBfrbnuj1 36YhYds2whGMYpwLVcWUewWWT 7 A44ez4J4FGTkYDTlBZY8cYY9t K1rdYgxbexlxGFvtYlritLpoT nzBDrrXSnnO516JRZfeEosMiI J Dod0S6KmEak2CJVimQqeTC1za SCvXFlmPm4qfXcwcXiwED4kYC Qqimqne296SmIzh4llEYMopAW g NMqbSOJ2N52bv7B9RATcXQHjK TW5nZG3lE2jlVoaotxfzWEsfJ fdmhQumJvtXLdgRSajW550OYQ v hDqfOd9EMeg3I8MrPzm2GJTkj TlqFZ9avXZrVVynGz6tuXpmiN ieNH7zYCYsdwkup401JkKcs1j k KYFxlLJhKJejOXW5H97ya9C5Y VFmBKXnJFA8cUF7xX9rxUfycs ogbGVmdDsgdmVydGljYWwtYWx p Z467FHFguBtzBlYucNWiXjrnm GQ+WQ58wx82B3HeLrpyNng2UT ZsWLB0eXS0nN6gFINzWRwpx7J 5 bGU9 (more content not included)... [facility] IntraOperative Documentson 0 09-29-2022 IntraOperative Documents [id number]#1.00CD:1 27 [facility] Consent for Anesthesiaon Consent for Anesthesia [id number]#1.00CD:127 [facility] Discharge Instructionson Discharge Instructions [id number]#1.00CD:127 [facility] IntraOperative Documentson 0 09-26-2022 IntraOperative Documents [id number]#1.00CD:127 [facility] Main OR Intraoperative Recor don 09-26-2022 Main OR Intraoperative Record IntraOp Document Type FT Summary Primary Physician: Cathie Gomez MD Finalized Date/Time: 09/26/22 12:59:32 Pt. Name: JAILENEELICIA/Sex: 1950 Female Med Rec #: [id number] Physician: Cathie Gomez MD Financial #: [id number] Pt. Type: A Room/Bed: [place] [address] Admit/Disch: 09/25/22 08:47:29 - 09/25/22 13:25:00 Institution: [...] 1 Entry 2 Entry 3 Case Attendee Patricia King CRNA, MD, Cathie Mai RN, Marianne Castano Role Performed MAUDE Surgeon - Primary Record Searcher - Primary Time In 09/25/22 11:06:00 09/25/22 [...] ENDOSCOPY(Left), NASAL NASAL CAUTERIZATION(Left) CAUTERIZATION(Left) Comments 2ND ORDER TRACER Last Modified By: Javad Guzmán Terry T [...] Participants Patricia Colvin MD, Sergei Ghosh RN, Marianne Vasquez, Javad Guzmán Kipp, Jessica D Time Out Complete 09/25/22 11:17:00 Outcomes Met? Yes Last Modified By: Javad Guzmán 09/25/22 11:39:13 Post-Care Text: The patient is free from signs and symptoms of injury caused by extraneous objects General Comments: LEFT CHEEK MARKED. Gabriele GUZMÁN RN. Allergy Information FT Pre-Care Text: Verifies allergies [...] and tissue Entry 1 Skin Integrity Intact, [place], Warm, and Skin Abnormality No Dry Outcomes Met? Yes Last Modified By: Javad Guzmán 09/25/22 11:14:01 Post-Care Text: The patient is free from signs and symptoms of injury caused by extraneous objects Patient Positioning FT Pre-Care T (more content not included)... [facility] Preoperative Documentson Preoperative Documents [id number]#1.00CD:127 [facility] Preoperative Documents [id number]#1.00CD:127 [facility] Progress Note-Physicianon Progress Note-Physician Patient: ELICIA [...] meets criteria ( To home ). [facility] Comment on above: Result Comment: Elec [...] list: All Problems Arthritis / SNOMED CT 2277728 / Confirmed Afib / SNOMED CT 76554048 / Confirmed Acid reflux / SNOMED CT 763543741 / Confirmed H/O neuropathy / SNOMED CT 4709615204 / Confirmed HTN (hypertension) / SNOMED CT 3559181935 / Confirmed Histories Past Medical History: No active or resolved past medical history items have been selected or recorded. Family History: No family history items have been selected or recorded. Procedure history: Tonsillectomy (979857124). Dilation and curettage (71026611). Appendectomy (333578965). History of hysterectomy (3940607314). Carpal tunnel release (865150468). Arthroscopy of knee (964365378). Breast reduction (565240905). Cholecystectomy (47750627). THR - Total hip replacement (731149822). THR - Total hip replacement (054268848). Back fusion C 5-6 (644111882). Back fusion L2-5 (794779547). Social History Social & Psychosocial Habits Alcohol [...] results Radiology results ECG interpretation Condition Plan [place] [employer] (ASA) physical status classification: Class II. Anesthetic Preoperative Plan Anesthesia: General. . Anesthetic plan, risks, benefits, and alternatives discussed with the patient and/or family. Risks discussed: nausea, vomiting, headache, sore throat, dental injury, serious complications. Patient verbalized understanding. Communication: face to face with (patient 5 minutes, Pt educated on the importance of smoking cessation.). Normal [facility] Comment on above: Result Comment: Elec tronically Signed By: Cortes Marsh DO, Pavan Baumann\.judy\Date and Time Signed: 09/26/22 14:14 EDT BUNon 09-25-2022 Urea nitrogen [Mass/Vol] 24 mg/dL High 5-21 [facility] Comment on above: Performed By: #### 2 991912, 3077139, 80708909, 4903642, 5357225 ####[facility] [address] [place] [address] CHEMISTRYOrdered By: SYSTEM SYSTEM on 09-25-2022 Anion gap [Moles/Vol] 11 mmol/L Normal 6 - 16 mEq/L FT Remisol Chloride [Moles/Vol] 101 mmol/L Normal 101 - 1 11 mmol/L FT Remisol CO2 [Moles/Vol] 29 mmol/L Normal 21 - 31 mmol/L FT Remisol Creatinine [Mass/Vol] 0.8 mg/dL Normal 0.5 - 1.3 mg/dL FT Remisol GFR/1.73 sq M.predicted among blacks MDRD (S/P/Bld) [Vol rate/Area] mL/min/1.73 m2 Normal >=59mL/min /1.73 m2 [facility] Chem S GFR/1.73 sq M.predicted among non-blacks MDRD (S/P/Bld) [Vol rate/Area] mL/min/1.73 m2 Normal >=59mL/min /1.73 m2 [facility] Chem S Glucose post fast [Mass/Vol] 96 mg/dL Normal 55 - 99 mg/dL FT Remisol Potassium [Moles/Vol] 4.2 mmol/L Normal 3.5 - 5.3 mmol/L FT Remisol Sodium [Moles/Vol] 137 mmol/L Normal 135 - 145 mmol/L FT Remisol Urea nitrogen [Mass/Vol] 24 mg/dL High 5 - 21 mg/dL FT Remisol COAGULATIONOrdered By: Yvrose Crabtree on 09-25-2022 aPTT Coag (PPP) [Time] 29.4 s Normal 25.1 - 36.5 second(s) [facility] Auto Coag INR Coag (PPP) [Relative time] 1.1 {INR} Invalid Interpretation Code [facility] Auto Coag PT Coag (PPP) [Time] 12.0 s Normal 9.4 - 1 2.5 second(s) [facility] Auto Coag Consent for Treatmenton 09-10 Consent for Treatment [id number]#1.00CD:12 7 Normal [facility] Creatinineon 09-25-2022 Creatinine [Mass/Vol] 0.8 mg/dL Normal 0.5-1.3 [facility] Comment on above: Performed By: #### 2 920258, 5260514, 98232330, 4992414, 3711952 ####[facility] [address] [place] [address] Glu Fastingon 09-25-2022 Glucose [Mass/Vol] 96 mg/dL Normal 55-99 [facility] Comment on above: Performed By: #### 2 639963, 4880974, 89878533, 4595199, 9733141 ####[facility] [address] [place] [address] H&P Updateon 09-25-2022 H&P Update [id number]#1.00CD:12 7 Normal [facility] Inpatient Patient Summaryon 09-25-2022 Inpatient Patient Summary [address] [address] [facility] Clinical Discharge Instructions PERSON INFORMATION Name: ELICIA [...] Milligram By Mouth every day. Comment: Normal [facility] Lyteson 09-25-2022 Anion gap [Moles/Vol] 11 mmol/L Normal 6-16 [facility] Comment on above: Performed By: #### 2 983694, 2140389, 23048475, 4417316, 3889348 ####[facility] [address] [place] [address] Chloride [Moles/Vol] 101 mmol/L Normal 101-111 [facility] Comment on above: Performed By: #### 2 372157, 8428453, 74120825, 7565312, 7711702 ####[facility] [address] [place] [address] CO2 [Moles/Vol] 29 mmol/L Normal 21-31 [facility] Comment on above: Performed By: #### 2 109596, 0273542, 53368285, 0022570, 0686707 ####[facility] [address] [place] [address] Potassium [Moles/Vol] 4.2 mmol/L Normal 3.5-5.3 [facility] Comment on above: Performed By: #### 2 503566, 6763751, 03379419, 9974614, 3269051 ####[facility] [address] [place] [address] Sodium [Moles/Vol] 137 mmol/L Normal 135-145 [facility] Comment on above: Performed By: #### 2 498067, 9589170, 08016403, 9615597, 3127448 ####[facility] [address] [place] [address] Main OR PACU I Recordon 09-10 Main OR PACU I Record PACU Phase I Docum ent Type FT Summary Primary Physician: Cathie Gomez MD Finalized Date/Time: 09/25/22 12:15:53 Pt. Name: ELICIA DENT/Sex: 1950 Female Med Rec #: [id number] Physician: Cathie Gomez MD Financial #: [id number] Pt. Type: A Room/Bed: [place] [address] Admit/Disch: 09/25/22 08:47:29 - Institution: Case Times [...] By: Tatiana Cruz RN 09/25/22 12:15 Normal [facility] Main OR PACU II Recordon Main OR PACU II Record PACU Phase II Doc ument Type FT Summary Primary Physician: Cathie Gomez MD Finalized Date/Time: 09/25/22 13:40:07 Pt. Name: ELICIA DENT/Sex: 1950 Female Med Rec #: [id number] Physician: Cathie Gomez MD Financial #: [id number] Pt. Type: A Room/Bed: [place] [address] Admit/Disch: 09/25/22 08:47:29 - Institution: Case Times [...] By: Milena Neff RN 09/25/22 13:40 Normal [facility] Monitor Recordon 09-25-2022 Monitor Record [id number]#[id number]:1 27 Normal [facility] Outpatient Surgery Discharge Instructionon 09-25-2022 Outpatient Surgery Discharge Instruction [address] [address] Patient Discharge Instructions PERSON INFORMATION Name: ELICIA DENT Date of : 1950 Current Date: 09/25/2022 12:53:19 PHYSICIANS Admitting Physician: Patricia YANG, Cathie Discharge Diagnosis: Internal nasal lesion ELICIA DENT [...] THE NEAREST EMERGENCY ROOM OR CALL 911 I, ELICIA DENT, have received the attached patient education materials/instructions and have verbalized understanding: May we do a follow up call? Yes No I was present when discharge instructions were given Patient Signature ___ Date Clinican/Nurse Signature Date Follow up: With: Address: When: Cathie Gomez Comments: As needed Pharmacy Information: You may receive a survey from [employer] asking you to rate your care experience. Your feedback is important and will help us understand what we do well and how we can improve the quality of care we provide to you, your loved ones and our community. It?s an honor to serve you. Thank you for choosing [facility] HERE ARE THE MEDICATION CHANGES THAT OCCURRED [...] at home: Medicines ? Take or use gpna-frr-zrgveci and prescription medicines only as told by [...] discomfort that does not get better with jzrg-qqy-vssktwe medicine. ? You have a fever. ? You have more clear fluid or blood coming from your no (more content not included)... Normal [facility] PT & PTTon 09-25-2022 aPTT Coag (PPP) [Time] 29.4 second(s) Normal 25.1-36.5 [facility] Comment on above: Result Comment: Para [...] the same coagulation reagent and instrumentation as [facility]. Currently there are no coagulation studies available worldwide for children to 14 days, and no normal ranges. Heparin therapeutic range (represented by Anti-Factor Xa activity of 0.2 - 0.4 U/mL) corresponds to PTT of 56.6 - 109.0 sec. Performed By: #### 1 1907499 ####[facility] [place] [address] INR Coag (PPP) [Relative time] 1.1 {INR} Invalid Interpretation Code [facility] Comment on above: Result Comment: INR results are specifically intended to assess patients stabilized on long-term Anticoagulation therapy suggested INR?s ?Less Intensive Anticoagulation? 2.0 ? 3.0 Conventional Range 3.0 ? 4.5 Performed By: #### 1 [id number] ####[facility] [address] [place] [address] PT Coag (PPP) [Time] 12.0 second(s) Normal 9.4-12.5 [facility] Comment on above: Result Comment: 15 [...] ranges were obtained from a study by serge Guadalupe al. prepared from 1437 samples obtained at 7 different centers using the same coagulation reagent and instrumentation as [facility]. Currently there are no coagulation studies available worldwide for children to 14 days, and no normal ranges. Performed By: #### 1 [id number] ####[facility] [address] [place] [address] Patient Education - Texton 0 09-25-2022 Patient [...] at home: Medicines ? Take or use vubk-hgw-yyngsiv and prescription medicines only as told by [...] discomfort that does not get better with pysz-xre-rwguqnj medicine. ? You have a fever. ? [...] 11/13/2017 Document Revised: 10/21/2019 Document Reviewed: 11/13/2017 [email or web address] Patient Education ? 2019 [email or web address] Normal [facility] eGFRon 09-25-2022 GFR/1.73 sq M.predicted among blacks MDRD (S/P/Bld) [Vol rate/Area] mL/min/{1.73_m2} Normal >=59 [facility] Comment on above: Order Comment: Order added by Discern Expert. Result Comment: eGFR is race adjusted. AA=. Performed By: #### 2 094809, 0805911, 11894375, 3697706, 0522471 ####[facility] [address] [place] [address] GFR/1.73 sq M.predicted among non-blacks MDRD (S/P/Bld) [Vol rate/Area] mL/min/{1.73_m2} Normal >=59 [facility] Comment on above: Order Comment: Order added by Discern Expert. Result Comment: Property Management Accountant dodie kidney disease could be indicated at eGFR's of less than 60 mL/min/1.73m2. Kidney failure is indicated at less than 15 mL/min/1.73m2. Performed By: #### 2 854567, 6742913, 25660158, 1654323, 2282148 ####[facility] [address] [place] [address] Consent for Procedure/Surger yon 09-23-2022 Consent for Procedure/Surgery [id number]#1.00CD:1 27 Normal [facility] Physician Orderon 09-23-2022 Physician Order [id number]#1.00CD:1 27 Normal [facility] Auto Diffon 09-22-2022 Basophils/100 WBC (Bld) 0.8 % Normal 0.0-2.0 [facility] [facility] Comment on above: Order Comment: Order Added by Discern Expert. Performed By: #### 1 [id number], [id number], [id number] ####[facility] [address] [place] [address] Basophils/Leukocytes Auto (Bld) [Pure # fraction] 0.1 E9/L Normal 0.0-0.2 [facility] Comment on above: Order Comment: Order Added by Discern Expert. Performed By: #### 1 [id number], [id number], [id number] ####[address] [address] Eosinophils/100 WBC (Bld) 1.0 % Normal 0.0-8.0 [facility] Comment on above: Order Comment: Order Added by Discern Expert. Performed By: #### 1 [id number], 9476455, [id number] ####[address] [place] [address] Eosinophils/Leukocytes Auto (Bld) [Pure # fraction] 0.1 E9/L Normal 0.0-0.5 [facility] Comment on above: Order Comment: Order Added by Discern Expert. Performed By: #### 1 [id number], 9606431, 9453812 ####[address] [address] Lymphocytes/100 WBC (Bld) 29.6 % Normal 14.0-50.0 [facility] Comment on above: Order Comment: Order Added by Discern Expert. Performed By: #### 1 [id number], 4443398, 2582701 ####[address] [address] Lymphocytes/Leukocytes Auto (Bld) [Pure # fraction] 1.9 E9/L Normal 1.0-4.0 [facility] Comment on above: Order Comment: Order Added by Discern Expert. Performed By: #### 1 [id number], 9368207, 7344297 ####[address] [address] Monocytes/100 WBC (Bld) 7.0 % Normal 4.0-14.0 [facility] Comment on above: Order Comment: Order Added by Discern Expert. Performed By: #### 1 [id number], 7826449, 0644508 ####[address] [address] Monocytes/Leukocytes Auto (Bld) [Pure # fraction] 0.4 E9/L Normal 0.2-1.0 [facility] Comment on above: Order Comment: Order Added by Discern Expert. Performed By: #### 1 [id number], 2230973, 3655136 ####[address] [place] [address] Neutrophils/100 WBC (Bld) 61.6 % Normal 36.0-75.0 [facility] Comment on above: Order Comment: Order Added by Discern Expert. Performed By: #### 1 [id number], 8861438, 8061398 ####[address] [place] [address] Neutrophils/Leukocytes Auto (Bld) [Pure # fraction] 3.9 E9/L Normal 2.0-7.5 [facility] Comment on above: Order Comment: Order Added by Discern Expert. Performed By: #### 1 [id number], 1506445, 0086461 ####[address] [address] CBC w/ Auto Diffon Erythrocyte distribution width (RBC) [Ratio] 13.4 % Normal 10.9-14.2 [facility] Comment on above: Performed By: #### 1 [id number], 3049700, 7602495 ####[address] [address] Hematocrit (Bld) [Volume fraction] 38.8 % Normal 34.0-46.0 [facility] Comment on above: Performed By: #### 1 1565539, 3887957, 2873762 ####[address] [address] Hemoglobin (Bld) [Mass/Vol] 12.5 g/dL Normal 12.0-16.0 [facility] Comment on above: Performed By: #### 1 [id number], 2518422, 1546263 ####[address] [address] MCH (RBC) [Entitic mass] 30.2 pg Normal 27.0-34.0 [facility] Comment on above: Performed By: #### 1 7015101, 5436561, 0138911 ####[address] [address] MCHC (RBC) [Mass/Vol] 32.1 g/dL Normal 31.4-36.0 [facility] Comment on above: Performed By: #### 1 [id number], 5041850, 7585386 ####[id number] MCV (RBC) [Entitic vol] 94.0 fL Normal 80.0-100.0 [facility] Comment on above: Performed By: #### 1 0293430, 1064929, 2456105 ####[address] Platelet mean volume (Bld) [Entitic vol] 8.4 fL Normal 6.4-10.8 [facility] Comment on above: Performed By: #### 1 0253298, 5187755, 4290312 ####[place] [address] Platelets (Bld) [#/Vol] 234.0 E9/L Normal 150.0-500. 0 [facility] Comment on above: Performed By: #### 1 0135634, 1224946, 8828445 ####[address] RBC (Bld) [#/Vol] 4.1 E12/L Low 4.3-5.9 [facility] Comment on above: Performed By: #### 1 3720179, 0174223, 5373577 ####[address] WBC corrected for nucl RBC Auto (Bld) [#/Vol] 6.3 E9/L Normal 4.0-11.0 [facility] Comment on above: Performed By: #### 1 6942266, 6068757, 7914160 ####[address] [address] COAGULATIONOrdered By: Chase Polo on 09-22-2022 aPTT Coag (PPP) [Time] 32.2 s Normal 25.1 - 36.5 second(s) [facility] Auto Coag INR Coag (PPP) [Relative time] 1.3 {INR} Invalid Interpretation Code [facility] Auto Coag PT Coag (PPP) [Time] 14.5 s High 9.4 - 1 2.5 second(s) [facility] Auto Coag Consent for Procedure/Surger yon 09-22-2022 Consent for Procedure/Surgery [id number]#1.00CD:1 27 Normal [facility] Consent for Treatmenton 09-10 Consent for Treatment [id number]#1.00CD:12 7 Normal [facility] HEMATOLOGYOrdered By: SYSTEM SYSTEM on 09-22-2022 [...] 6.3 E9/L Normal 4.0 - 11.0 E9/L [facility] HemeAutoSS PT & PTTon 09-22-2022 aPTT Coag (PPP) [Time] 32.2 second(s) Normal 25.1-36.5 [facility] Comment on above: Result Comment: Para [...] the same coagulation reagent and instrumentation as [facility]. Currently there are no coagulation studies available worldwide for children to 14 days, and no normal ranges. Heparin therapeutic range (represented by Anti-Factor Xa activity of 0.2 - 0.4 U/mL) corresponds to PTT of 56.6 - 109.0 sec. Performed By: #### 1 [id number], 8506139, 7860622 ####[facility] [address] [place] [address] INR Coag (PPP) [Relative time] 1.3 {INR} Invalid Interpretation Code [facility] Comment on above: Result Comment: INR results are specifically intended to assess patients stabilized on long-term Anticoagulation therapy suggested INR?s ?Less Intensive Anticoagulation? 2.0 ? 3.0 Conventional Range 3.0 ? 4.5 Performed By: #### 1 [id number], 3025569, 0980009 ####[facility] [address] [place] [address] PT Coag (PPP) [Time] 14.5 second(s) High 9.4-12.5 [facility] Comment on above: Result Comment: 15 [...] ranges were obtained from a study by serge Guadalupe al. prepared from 1437 samples obtained at 7 different centers using the same coagulation reagent and instrumentation as [facility]. Currently there are no coagulation studies available worldwide for children to 14 days, and no normal ranges. Performed By: #### 1 [id number], 4498372, 7992485 ####[facility] [address] [place] [address] Physician Orderon 09-22-2022 Physician Order [id number]#1.00CD:12 7 Normal [facility] XR Chest 2 Viewson 3 XR [...] Del Angel M.D. Transcribed by: PATRICIO Technologist: KENTRELL Technical Comments Radiation Dose: Ka,r in mGy = na DAP = na Normal [facility] CBC AUTO DIFFon 07-01-2022 BASO # 0.1 103/ul Normal 0.0-0.1 [facility] Comment on above: Performed By: #### C BC #### [facility] [address] [place] [address] Dr. Christa Gonzalez Basophils/100 WBC (Bld) 1.0 % Normal 0.2-2.0 [facility] Comment on above: Performed By: #### C BC #### [facility] [address] [place] [address] Dr. Christa Gonzalez EO # 0.1 103/ul Normal 0.0-0.7 [facility] Comment on above: Performed By: #### C BC #### [facility] [address] [place] [address] Dr. Christa Gonzalez Eosinophils/100 WBC (Bld) 1.0 % Normal 0.9-7.0 [facility] Comment on above: Performed By: #### C BC #### [facility] [address] [place] [address] Dr. Christa Gonzalez Erythrocyte distribution width (RBC) [Ratio] 13.2 % Normal 11.0-15.0 [facility] Comment on above: Performed By: #### C BC #### [facility] [address] [place] [address] Dr. Christa Gonzalez Hematocrit (Bld) [Volume fraction] 39.3 % Normal 36.0-48.0 [facility] Comment on above: Performed By: #### C BC #### [facility] [address] [place] [address] Dr. Christa Gonzalez Hemoglobin (Bld) [Mass/Vol] 12.6 g/dL Normal 12.0-16.0 [facility] Comment on above: Performed By: #### C BC #### [facility] [address] [place] [address] Dr. Christa Gonzalez IG # 0.04 10e3/ul Critically high 0.00-0.03 [facility] Comment on above: Performed By: #### C BC #### [facility] [address] [place] [address] Dr. Christa Gonzalez IG % 0.5 % Normal 0.0-0.5 [facility] Comment on above: Performed By: #### C BC #### [facility] [address] [place] [address] Dr. Christa Gonzalez LYMPH # 1.9 103/ul Normal 1.2-3.8 [facility] Comment on above: Performed By: #### C BC #### [facility] [address] [place] [address] Dr. Christa Gonzalez Lymphocytes/100 WBC (Bld) 23.2 % Normal 20.5-60.0 [facility] Comment on above: Performed By: #### C BC #### [facility] [address] [place] [address] Dr. Christa Gonzalez MANUAL DIFF REQ NO Normal [facility] Comment on above: Performed By: #### C BC #### [facility] [address] [place] [address] Dr. Christa Gonzalez MCH (RBC) [Entitic mass] 30.7 pg Normal 26.7-34.0 [facility] Comment on above: Performed By: #### C BC #### [facility] [address] [place] [address] Dr. Christa Gonzalez MCHC (RBC) [Mass/Vol] 32.1 g/dL Normal 29.9-35.2 [facility] Comment on above: Performed By: #### C BC #### [facility] [address] [address] [address] Christa Gonzalez MCV (RBC) [Entitic vol] 95.9 fL Normal 81.0-99.0 [facility] Comment on above: Performed By: #### C BC #### [facility] [address] [address] [address] Christa Gonzalez MONO # 0.7 103/ul Normal 0.3-0.8 [facility] Comment on above: Performed By: #### C BC #### [facility] [address] [address] [address] Christa Gonzalez Monocytes/100 WBC (Bld) 8.9 % Normal 1.7-12.0 [facility] Comment on above: Performed By: #### C BC #### [facility] [address] [address] [address] Christa Gonzalez NEUT # 5.3 103/ul Normal 1.4-6.5 [facility] Comment on above: Performed By: #### C BC #### [facility] [address] [address] [address] Christa Gonzalez Neutrophils/100 WBC (Bld) 65.4 % Normal 43.0-75.0 [facility] Comment on above: Performed By: #### C BC #### [facility] [address] [address] [address] Christa Gonzalez Platelet mean volume (Bld) [Entitic vol] 10.4 fL Normal 9.5-13.5 [facility] Comment on above: Performed By: #### C BC #### [facility] [address] [address] [address] Christa Gonzalez PLT 244 103/ul Normal 150-450 [facility] Comment on above: Performed By: #### C BC #### [facility] [address] [address] [address] Christa Gonzalez RBC 4.10 106/ul Critically low 4.20-5.40 [facility] Comment on above: Performed By: #### C BC #### [facility] [address] [place], [place] [address] Dr. Christa Gonzalez WBC 8.1 103/ul Normal 4.0-11.0 [facility] Comment on above: Performed By: #### C BC #### [facility] [address] [place], [place] [address] Dr. Christa Gonzalez Office Visit (Cardiology)on 06-10-2022 [...] 1 TABLET DAILY OR DIRECTED BY [facility] Zinc 50 MG Oral TabletTAKE 1 TABLET [...] Recorded: 10Jun2022 09:23AM Heart Rate64, L Radial Jkrncxod592, LUE, Sitting Cmongpcoe93, LUE, Sitting Height5 ft 5 in Asbqyq773 lb BMI Iqqxsclpof98.46 kg/m2 BSA Calculated1.77 Tobacco Useb) No Falls [...] regular rhythm, (more content not included)... Normal [facility] Tobacco Screening.on 022 Fall risk assessment a) No falls within the last year [facility] DO Work Phone: Tobacco use status CP b) No [facility] [address] DO Work Phone: MG MAMM SCREEN 3D ROBERT CADon 05-26-2022 MG MAMM SCREEN 3D ROBERT CAD Patient: ELICIA DENT Exam Date: 05/26/2022 : 1950 Gender:F Ordering : DR KYLE ALMENDAREZ M.D. Admission #: [id number] Family : Order #: [id number] CLICK HERE TO VIEW EXAM RADIOLOGY REPORT [...] colon cancer at age 69. LOCATION: [facility] BREAST COMPOSITION: Scattered areas fibroglandular density. FINDINGS: [...] MD on 05/26/2022 at 15:38 Normal [facility] CBC AUTO DIFFon 05-24-2022 BASO # 0.1 103/ul Normal 0.0-0.1 [facility] Comment on above: Performed By: #### C BC #### [facility] [address] [address] [address] Christa Gonzalez Basophils/100 WBC (Bld) 0.8 % Normal 0.2-2.0 [facility] Comment on above: Performed By: #### C BC #### [facility] [address] [address] [address] Christa Gonzalez EO # 0.1 103/ul Normal 0.0-0.7 [facility] Comment on above: Performed By: #### C BC #### [facility] [address] [address] [address] Christa Gonzalez Eosinophils/100 WBC (Bld) 1.8 % Normal 0.9-7.0 [facility] Comment on above: Performed By: #### C BC #### [facility] [address] [address] [address] Christa Gonzalez Erythrocyte distribution width (RBC) [Ratio] 13.2 % Normal 11.0-15.0 [facility] Comment on above: Performed By: #### C BC #### [facility] [address] [address] [address] Christa Gonzalez Hematocrit (Bld) [Volume fraction] 38.6 % Normal 36.0-48.0 [facility] Comment on above: Performed By: #### C BC #### [facility] [address] [place] [address] Dr. Christa Gonzalez Hemoglobin (Bld) [Mass/Vol] 12.7 g/dL Normal 12.0-16.0 [facility] Comment on above: Performed By: #### C BC #### [facility] [address] [place] [address] Dr. Christa Gonzalez IG # 0.02 10e3/ul Normal 0.00-0.03 [facility] Comment on above: Performed By: #### C BC #### [facility] [address] [place] [address] Dr. Christa Gonzalez IG % 0.3 % Normal 0.0-0.5 [facility] Comment on above: Performed By: #### C BC #### [facility] [address] [place] [address] Dr. Christa Gonzalez LYMPH # 2.6 103/ul Normal 1.2-3.8 [facility] Comment on above: Performed By: #### C BC #### [facility] [address] [place] [address] Dr. Christa Gonzalez Lymphocytes/100 WBC (Bld) 39.1 % Normal 20.5-60.0 [facility] Comment on above: Performed By: #### C BC #### [facility] [address] [place] [address] Dr. Christa Gonzalez MANUAL DIFF REQ NO Normal [facility] Comment on above: Performed By: #### C BC #### [facility] [address] [place] [address] Dr. Christa Gonzalez MCH (RBC) [Entitic mass] 30.9 pg Normal 26.7-34.0 [facility] Comment on above: Performed By: #### C BC #### [facility] [address] [address] [address] Christa Gonzalez MCHC (RBC) [Mass/Vol] 32.9 g/dL Normal 29.9-35.2 [facility] Comment on above: Performed By: #### C BC #### [facility] [address] [address] [address] Christa Gonzalez MCV (RBC) [Entitic vol] 93.9 fL Normal 81.0-99.0 [facility] Comment on above: Performed By: #### C BC #### [facility] [address] [address] [address] Christa Gonzalez MONO # 0.5 103/ul Normal 0.3-0.8 [facility] Comment on above: Performed By: #### C BC #### [facility] [address] [place] [address] Dr. Christa Gonzalez Monocytes/100 WBC (Bld) 7.9 % Normal 1.7-12.0 [facility] Comment on above: Performed By: #### C BC #### [facility] [address] [place] [address] Dr. Christa Gonzalez NEUT # 3.3 103/ul Normal 1.4-6.5 [facility] Comment on above: Performed By: #### C BC #### [facility] [address] [place] [address] Dr. Christa Gonzalez Neutrophils/100 WBC (Bld) 50.1 % Normal 43.0-75.0 [facility] Comment on above: Performed By: #### C BC #### [facility] [address] [place] [address] Dr. Christa Gonzalez Platelet mean volume (Bld) [Entitic vol] 9.9 fL Normal 9.5-13.5 [facility] Comment on above: Performed By: #### C BC #### [facility] [address] [place] [address] Dr. Christa Gonzalez PLT 226 103/ul Normal 150-450 [facility] Comment on above: Performed By: #### C BC #### [facility] [address] [address] [address] Christa Gonzalez RBC 4.11 106/ul Critically low 4.20-5.40 [facility] Comment on above: Performed By: #### C BC #### [facility] [address] [address] [address] Christa Gonzalez WBC 6.6 103/ul Normal 4.0-11.0 [facility] Comment on above: Performed By: #### C BC #### [facility] [address] [address] [address] Christa Gonzalez PROF CHEM 8 (BAS METB)on Anion gap [Moles/Vol] 7.5 mmol/L Normal [facility] Comment on above: Performed By: #### B MP #### [facility] [address] [place] [address] Dr. Christa Gonzalez Calcium [Mass/Vol] 9.1 mg/dL Normal 8.5-10.1 [facility] Comment on above: Performed By: #### B MP #### [facility] [address] [place] [address] Dr. Christa Gonzalez Chloride [Moles/Vol] 104 mmol/L Normal 98-107 [facility] Comment on above: Performed By: #### B MP #### [facility] [address] [place] [address] Dr. Christa Gonzalez CO2 [Moles/Vol] 32.3 mmol/L Critically high 21.0-32.0 [facility] Comment on above: Performed By: #### B MP #### [facility] [address] [place] [address] Dr. Christa Gonzalez Creatinine [Mass/Vol] 1.41 mg/dL Critically high 0.55-1.02 [facility] Comment on above: Performed By: #### B MP #### [facility] [address] [place] [address] Dr. Christa Gonzalez EGFR-AF SIERRA LEONEAN 44 mL/min/1.73m2 Critically low >=60 [facility] Comment on above: Performed By: #### B MP #### [facility] [address] [address] [address] Christa Gonzalez EGFR-NON AF SIERRA LEONEAN 37 mL/min/1.73m2 Critically low >=60 [facility] Comment on above: Performed By: #### B MP #### [facility] [address] [address] [address] Christa Gonzalez Glucose [Mass/Vol] 95 mg/dL Normal 74-106 [facility] Comment on above: Performed By: #### B MP #### [facility] [address] [address] [address] Christa Gonzalez Potassium [Moles/Vol] 3.8 mmol/L Normal 3.5-5.1 [facility] Comment on above: Performed By: #### B MP #### [facility] [address] [address] [address] Christa Gonzalez Sodium [Moles/Vol] 140 mmol/L Normal 136-145 [facility] Comment on above: Performed By: #### B MP #### [facility] [address] [address] [address] Christa Gonzalez Urea nitrogen [Mass/Vol] 35.0 mg/dL Critically high 7.0-18.0 [facility] Comment on above: Performed By: #### B MP #### [facility] [address] [address] [address] Christa Gonzalez Urea nitrogen/Creatinine [Mass ratio] 24.8 mg/mg Normal [facility] Comment on above: Performed By: #### B MP #### [facility] [address] [address] [address] Christa Gonzalez PROTIMEon 05-24-2022 INR Coag (PPP) [Relative time] 2.11 {INR} Normal [facility] Comment on above: Performed By: #### P T #### [facility] [address] [address] [address] Christa Gonzalez INR GUIDELINES SEE BELOW Normal [facility] Comment on above: Result Comment: KANDICE RED INR: 2.0 - 3.0 CONDITIONS NOT LISTED BELOW 2.5 - 3.5 FOR PROSTHETIC HEART VALVE REPLACEMENT 2.5 - 3.5 RECURRENT THROMBOSIS Performed By: #### P T #### [facility] [address] [place], [place] [address] Dr. Christa Gonzalez PT Coag (PPP) [Time] 21.7 s Critically high 9.0-11.6 [facility] Comment on above: Performed By: #### P T #### [facility] [address] [place], [place] [address] Dr. Christa Gonzalez XR CHEST 2 Von [...] by: TAY DICKERSON Date: 2022-01-17 09:22 Normal [facility] CNOVon 10-16-2021 CNOV Office Visit (SPSLUH ) ----- ELICIA DENT ([id number]) 1950 F Date Time Provider Department 10/16/21 3:50 PM [facility] today, we recorded the [...] Encounter Status:Closed by [facility] Telephone (SPNSMN) ----- ELICIA DENT ([id number]) 1950 F Date Time Provider Department 09/09/21 Michael DILLARD During your visit today, we recorded the following information about you: Sj Villa RN 09/09/2021 11:46 AM Signed Neuro SPINE CARE COORDINATION QUICK NOTE Spoke with patient who states sent injection notes. Office only received office notes/not procedure notes. Spoke with Dr Everett's office ([phone]) in pain management who will fax over the procedure notes. Allergies As of Date: 09/09/2021 (Not on File) Date Reviewed: Never Reviewed Reason for Visit: Information [9908] Prescriptions as of 09/09/2021 - omeprazole (PRILOSEC) [...] Status:Closed by SJ VILLA on 09/09/21 Normal [facility] Office Visit (Cardiology)on 09-06-2021 Follow-up visit Diagnoses/Problems Assessed Essential hypertension (401.9) (I10) Paroxysmal atrial fibrillation (427.31) (I48.0) Anticoagulated (V58.61) (Z79.01) Overweight with body mass index (BMI) of 25 to 25.9 in adult (278.02,V85.21) (E66.3,Z68.25) Former smoker (V15.82) (Z87.891) quit 1971 Orders Overweight with body mass index (BMI) of 25 to 25.9 in adult Healthy Weight Tips; Status:Complete - Retrospective Authorization; Done: [id number] Paroxysmal atrial fibrillation Renew: Aspirin EC 81 MG Oral Tablet Delayed Release; TAKE TABLET Weekly SocHx: Former smoker Tobacco Use Screening; Status:Complete; Done: [id number] Patient Instructions By signing my name below, I, Xiomara Celis LPN ,Ayse, attest that this documentation has been prepared [...] 1 TABLET DAILY OR DIRECTED BY [facility] Zinc 50 MG Oral TabletTAKE 1 TABLET [...] negative for complaint. Vitals Vital Signs Recorded: [id number] 02:30PMRecorded: 32Ndb1462 01:59PM Xjvqyyub726, RUE, Qpbnqhd870, RUE, Sitting Ukekbbcuy89, RUE, Wutqdue25, RUE, Sitting Heart Rate70, R Radial Pulse QualityRegular, R Radial Height5 ft 5 in Ebnbrp841 lb BMI Vugaqvdabk24.96 kg/m2 BSA Calculated1.78 Tobacco Useb) No PHQ-2 [...] signed by (more content not included)... Normal [employer] Tobacco Screening.on Adult depression screening assessment No [facility] [employer] [facility] y 250 DO Work Phone: Fall risk assessment a) No falls within the last year [facility] y 250 DO Work Phone: Heart Rate Regular [facility] 250 DO Work Phone: Tobacco use status CPHS b) No [facility] y 250 DO Work Phone: XR Spine [...] by George Hobson on 08/30/2021 1233 Normal [facility] [employer] CNOVon 07-23-2021 CNOV Office Visit (SPSNAV ) ----- ELICIA DENT ([id number]) 1950 F Date Time Provider Department 07/23/21 [...] neurologic exam (more content not included)... Normal [facility] XR LUMBAR 2V AP/LATon 2021 XR LUMBAR 2V AP/LAT * * *Final Report* * * DATE OF EXAM: Jul 23 2021 12:19PM X 5229 - XR LUMBAR 2V AP/LAT / [...] other significant abnormality. IMPRESSION: EXPECTED POSTOPERATIVE APPEARANCE Regional [employer] Manager: MESERET Transcribe Date/Time: Jul 23 2021 12:52P Dictated by : LOLY DENIS MD This examination was interpreted and the report reviewed and electronically signed by: LOLY DENIS MD on Jul 23 2021 12:53PM EST [id number] Normal [facility] 06-08-2021 FLUAV Ab CF (S) [Titer] Negative [facility] Other FLUBV Ab CF (S) [Titer] Negative [facility] Other Vital Signs Date Time Vital Sign Value Performing Clinician Facility 01-26-2025 13:23-0400 Body height 165.1 cm Rosalva TORRE Work Phone: [facility] 01-26-2025 13:23-0400 Body mass index (BMI) [Ratio] 27.29 kg/m2 Rosalva TORRE Work Phone: [facility] 01-26-2025 13:23-0400 Body temperature 98.2 [degF] Rosalva TORRE Work Phone: [facility] 01-26-2025 13:23-0400 Body weight 74.39 kg Rosalva Hemmer PA Work Phone: [facility] 01-26-2025 13:23-0400 Diastolic blood pressure 62 mm[Hg] Rosalva Hemmer PA Work Phone: [facility] 01-26-2025 13:23-0400 Heart rate 60 /min Rosalva Hemmer PA Work Phone: [facility] 01-26-2025 13:23-0400 SaO2% (BldA) [Mass fraction] 98 % Rosalva Hemmer PA Work Phone: [facility] 01-26-2025 13:23-0400 Systolic blood pressure 126 mm[Hg] Rosalva Hemmer PA Work Phone: [facility] 01-18-2025 11:00-0400 Body height 165.1 cm Rosalva Hemmer PA Work Phone: [facility] 01-18-2025 11:00-0400 Body mass index (BMI) [Ratio] 27.19 kg/m2 Rosalva Hemmer PA Work Phone: [facility] 01-18-2025 11:00-0400 Body weight 74.12 kg Rosalva Hemmer PA Work Phone: [facility] 01-18-2025 11:00-0400 Diastolic blood pressure 86 mm[Hg] Rosalva Hemmer PA Work Phone: [facility] 01-18-2025 11:00-0400 Heart rate 58 /min Rosalva Hemmer PA Work Phone: [facility] 01-18-2025 11:00-0400 Respiratory rate 16 /min Rosalva Hemmer PA Work Phone: [facility] 01-18-2025 11:00-0400 SaO2% (BldA) [Mass fraction] 99 % Rosalva Hemmer PA Work Phone: [facility] 01-18-2025 11:00-0400 Systolic blood pressure 138 mm[Hg] Rosalva Hemmer PA Work Phone: [facility] 11-24-2024 09:54-0400 Body weight 74.1 kg Kyle Almendarez II Work Phone: [facility] 11-24-2024 09:54-0400 Diastolic blood pressure 80 mm[Hg] Kyle Almendarez II Work Phone: [facility] 11-24-2024 09:54-0400 Systolic blood pressure 143 mm[Hg] Kyle Almendarez II Work Phone: [facility] 11-14-2024 11:17-0400 Body height 167.64 cm Kyle Almendarez II Work Phone: [facility] 11-14-2024 11:17-0400 Body temperature 98.6 [degF] Kyle Almendarez II Work Phone: [facility] 11-14-2024 11:17-0400 Body weight 73.02 kg Kyle Almendarez II Work Phone: [facility] 11-14-2024 11:17-0400 Diastolic blood pressure 66 mm[Hg] Kyle Almendarez II Work Phone: [facility] 11-14-2024 11:17-0400 Heart rate 61 /min Kyle Almendarez II Work Phone: [facility] 11-14-2024 11:17-0400 Respiratory rate 20 /min Kyle Almendarez II Work Phone: [facility] 11-14-2024 11:17-0400 SaO2% (BldA) [Mass fraction] 99 % Kyle Almendarez II Work Phone: [facility] 11-14-2024 11:17-0400 Systolic blood pressure 146 mm[Hg] Kyle Almendarez II Work Phone: [facility] 09-21-2024 13:35-0400 Body height 165.1 cm Rosalva TORRE Work Phone: [facility] 09-21-2024 13:35-0400 Body mass index (BMI) [Ratio] 26.73 kg/m2 Rosalva Hemmer PA Work Phone: [facility] 09-21-2024 13:35-0400 Body temperature 98.6 [degF] Rosalva Hemmer PA Work Phone: [facility] 09-21-2024 13:35-0400 Body weight 72.85 kg Rosalva Hemmer PA Work Phone: [facility] 09-21-2024 13:35-0400 Diastolic blood pressure 76 mm[Hg] Rosalva Hemmer PA Work Phone: [facility] 09-21-2024 13:35-0400 Heart rate 54 /min Rosalva Hemmer PA Work Phone: [facility] 09-21-2024 13:35-0400 Respiratory rate 16 /min Rosalva Hemmer PA Work Phone: [facility] 09-21-2024 13:35-0400 SaO2% (BldA) [Mass fraction] 98 % Rosalva Hemmer PA Work Phone: [facility] 09-21-2024 13:35-0400 Systolic blood pressure 128 mm[Hg] Rosalva Hemmer PA Work Phone: [facility] 09-08-2024 12:33-0500 Diastolic blood pressure 77 mm[Hg] Kyle Almendarez II Work Phone: [facility] 09-08-2024 12:33-0500 Heart rate 63 /min Kyle Almendarez II Work Phone: [facility] 09-08-2024 12:33-0500 Respiratory rate 16 /min Kyle Almendarez II Work Phone: [facility] 09-08-2024 12:33-0500 SaO2% (BldA) [Mass fraction] 99 % Kyle Almendarez II Work Phone: [facility] 09-08-2024 12:33-0500 Systolic blood pressure 143 mm[Hg] Kyle Almendarez II Work Phone: [facility] 09-08-2024 10:34-0500 Body height 165.1 cm Kyle Almendarez II Work Phone: [facility] 09-08-2024 10:34-0500 Body weight 72.57 kg Kyle Almendarez II Work Phone: [facility] 09-07-2024 13:45-0500 Body height 165.1 cm Rosalva Hemmer PA Work Phone: [facility] 09-07-2024 13:45-0500 Body mass index (BMI) [Ratio] 26.59 kg/m2 Rosalva Hemmer PA Work Phone: [facility] 09-07-2024 13:45-0500 Body temperature 97.2 [degF] Rosalva Hemmer PA Work Phone: [facility] 09-07-2024 13:45-0500 Body weight 72.48 kg Rosalva Hemmer PA Work Phone: [facility] 09-07-2024 13:45-0500 Diastolic blood pressure 72 mm[Hg] Rosalva Hemmer PA Work Phone: [facility] 09-07-2024 13:45-0500 Heart rate 49 /min Rosalva Hemmer PA Work Phone: [facility] 09-07-2024 13:45-0500 Respiratory rate 16 /min Rosalva Hemmer PA Work Phone: [facility] 09-07-2024 13:45-0500 SaO2% (BldA) [Mass fraction] 97 % Rosalva Hemmer PA Work Phone: [facility] 09-07-2024 13:45-0500 Systolic blood pressure 126 mm[Hg] Rosalva Hemmer PA Work Phone: [facility] 09-02-2024 10:34-0500 Body height 165.1 cm [facility] 09-02-2024 10:34-0500 Body mass index (BMI) [Ratio] 27.3 kg/m2 [facility] 09-02-2024 10:34-0500 Body temperature 98.1 [degF] [place] 09-02-2024 10:34-0500 Body weight 74.38 kg [facility] 09-02-2024 10:34-0500 Diastolic blood pressure 77 mm[Hg] [facility] 09-02-2024 10:34-0500 Heart rate 63 /min [facility] 09-02-2024 10:34-0500 Respiratory rate 18 /min [place] 09-02-2024 10:34-0500 SaO2% (BldA) [Mass fraction] 95 % [facility] 09-02-2024 10:34-0500 Systolic blood pressure 136 mm[Hg] [facility] 07-26-2024 11:33-0500 Body height 165.1 cm Rosalva Hemmer PA Work Phone: [facility] 07-26-2024 11:33-0500 Body mass index (BMI) [Ratio] 26.63 kg/m2 Rosalva Hemmer PA Work Phone: [facility] 07-26-2024 11:33-0500 Body weight 72.58 kg Rosalva Hemmer PA Work Phone: [facility] 07-26-2024 11:33-0500 Diastolic blood pressure 78 mm[Hg] Rosalva Hemmer PA Work Phone: [facility] 07-26-2024 11:33-0500 Heart rate 57 /min Rosalva Hemmer PA Work Phone: [facility] 07-26-2024 11:33-0500 Respiratory rate 16 /min Rosalva Hemmer PA Work Phone: [facility] 07-26-2024 11:33-0500 SaO2% (BldA) [Mass fraction] 98 % Rosalva Hemmer PA Work Phone: [facility] 07-26-2024 11:33-0500 Systolic blood pressure 136 mm[Hg] Rosalva Hemmer PA Work Phone: [facility] 07-04-2024 15:36-0500 Body height 165.1 cm Rosalva Hemmer PA Work Phone: [facility] 07-04-2024 15:36-0500 Body mass index (BMI) [Ratio] 26.73 kg/m2 Rosalva Hemmer PA Work Phone: [facility] 07-04-2024 15:36-0500 Body weight 72.85 kg Rosalva Hemmer PA Work Phone: [facility] 07-04-2024 15:36-0500 Diastolic blood pressure 84 mm[Hg] Rosalva Hemmer PA Work Phone: [facility] 07-04-2024 15:36-0500 Heart rate 61 /min Rosalva Hemmer PA Work Phone: [facility] 07-04-2024 15:36-0500 Respiratory rate 16 /min Rosalva Hemmer PA Work Phone: [facility] 07-04-2024 15:36-0500 SaO2% (BldA) [Mass fraction] 97 % Rosalva Hemmer PA Work Phone: [facility] 07-04-2024 15:36-0500 Systolic blood pressure 144 mm[Hg] Rosalva Hemmer PA Work Phone: [facility] 05-25-2024 13:05-0500 Body height 165.1 cm Rosalva Hemmer PA Work Phone: [facility] 05-25-2024 13:05-0500 Body mass index (BMI) [Ratio] 26.26 kg/m2 Rosalva Hemmer PA Work Phone: [facility] 05-25-2024 13:05-0500 Body weight 71.58 kg Rosalva Hemmer PA Work Phone: [facility] 05-25-2024 13:05-0500 Diastolic blood pressure 74 mm[Hg] Rosalva Hemmer PA Work Phone: [facility] 05-25-2024 13:05-0500 Heart rate 64 /min Rosalva Hemmer PA Work Phone: [facility] 05-25-2024 13:05-0500 Respiratory rate 16 /min Rosalva Hemmer PA Work Phone: [facility] 05-25-2024 13:05-0500 SaO2% (BldA) [Mass fraction] 93 % Rosalva TORRE Work Phone: [facility] 05-25-2024 13:05-0500 Systolic blood pressure 132 mm[Hg] Rosalva TORRE Work Phone: [facility] 03-31-2024 09:18-0400 Body height 165.1 cm II Kyle Almendarez Work Phone: [facility] 03-31-2024 09:18-0400 Body mass index (BMI) [Ratio] 26 kg/m2 II Kyle Almendarez Work Phone: [facility] 03-31-2024 09:18-0400 Body weight 70.98 kg II Kyle Almendarez Work Phone: [facility] 03-28-2024 12:35-0400 Body height 165.1 cm Quita Hall MD Work Phone: [facility] 03-28-2024 12:35-0400 Body mass index (BMI) [Ratio] 25.96 kg/m2 Quita Hall MD Work Phone: [facility] 03-28-2024 12:35-0400 Body weight 70.76 kg Quita Hall MD Work Phone: [facility] 03-28-2024 12:35-0400 Diastolic blood pressure 80 mm[Hg] Quita Hall MD Work Phone: [facility] 03-28-2024 12:35-0400 Heart rate 62 /min Quita Hall MD Work Phone: [facility] 03-28-2024 12:35-0400 Systolic blood pressure 120 mm[Hg] Quita Hall MD Work Phone: [facility] 03-05-2024 06:32-0400 Body height 165.1 cm II Kyle Almendarez Work Phone: [facility] 03-05-2024 06:32-0400 Body weight 69.39 kg BERNIE Almendarez Work Phone: [facility] 01-29-2024 11:39-0400 Body height 165.1 cm [facility] 01-29-2024 11:39-0400 Body mass index (BMI) [Ratio] 25.89 kg/m2 [facility] 01-29-2024 11:39-0400 Body weight 70.58 kg [facility] 01-29-2024 11:39-0400 Diastolic blood pressure 62 mm[Hg] [facility] 01-29-2024 11:39-0400 Heart rate 43 /min [facility] 01-29-2024 11:39-0400 Systolic blood pressure 138 mm[Hg] [facility] 07-02-2023 10:42-0500 Diastolic blood pressure 60 mm[Hg] Danish Olguin MD Work Phone: [facility] 07-02-2023 10:42-0500 Systolic blood pressure 132 mm[Hg] Danish Olguin MD Work Phone: [facility] 07-02-2023 10:26-0500 Body height 165.1 cm Danish Olguin MD Work Phone: [facility] 07-02-2023 10:26-0500 Body mass index (BMI) [Ratio] 25.46 kg/m2 Danish Olguin MD Work Phone: [facility] 07-02-2023 10:26-0500 Body weight 69.4 kg Danish Olguin MD Work Phone: [facility] 07-02-2023 10:26-0500 Heart rate 66 /min Danish Olguin MD Work Phone: [facility] 06-22-2023 10:00-0500 Body height 167.64 cm Farnaz Gonzalez Other [facility] Other 06-22-2023 10:00-0500 Body mass index (BMI) [Ratio] 24.53 kg/m2 Farnaz Gonzalez Other [facility] Other 06-22-2023 10:00-0500 Body weight 68.95 kg Farnaz Gonzalez Other [facility] Other 05-28-2023 10:00-0500 Body height 167.64 cm [employer] Other [facility] Other 05-28-2023 10:00-0500 Body mass index (BMI) [Ratio] 24.05 kg/m2 Demetrio Cervantesisle II Other [facility] Other 05-28-2023 10:00-0500 Body weight 67.59 kg Demetrio Learyle II Other [facility] Other 09-25-2022 13:11-0400 Body temperature 97.88 [degF] Cathie Timmis [facility] 09-25-2022 13:11-0400 Diastolic blood pressure 76 mm[Hg] Cathie Timmis [facility] 09-25-2022 13:11-0400 Heart rate 62 /min Cathie Timmis [facility] 09-25-2022 13:11-0400 Mean blood pressure 98 mm[Hg] Cathie Timmis [facility] 09-25-2022 13:11-0400 Respiratory rate 15 /min Cathie Timmis [facility] 09-25-2022 13:11-0400 SaO2% (BldA) [Mass fraction] 98 % Cathie Timmis [facility] 09-25-2022 13:11-0400 Systolic blood pressure 143 mm[Hg] Cathie Timmis [facility] 09-25-2022 12:10-0400 Body temperature 97.7 [degF] Cathie Timmis [facility] 09-25-2022 12:10-0400 Diastolic blood pressure 73 mm[Hg] Cathie Timmis [facility] 09-25-2022 12:10-0400 Heart rate 64 /min Cathie Timmis [facility] 09-25-2022 12:10-0400 Mean blood pressure 101 mm[Hg] Cathie Timmis [facility] 09-25-2022 12:10-0400 Respiratory rate 16 /min Cathie Timmis [facility] 09-25-2022 12:10-0400 SaO2% (BldA) [Mass fraction] 97 % Cathie Timmis [facility] 09-25-2022 12:10-0400 Systolic blood pressure 157 mm[Hg] Cathie Timmis [facility] 09-25-2022 12:05-0400 Blood Pressure Location Cathie Timmis [facility] 09-25-2022 12:05-0400 Body temperature 97.52 [degF] Cathie Timmis [facility] 09-25-2022 12:05-0400 Diastolic blood pressure 70 mm[Hg] Cathie Timmis [facility] 09-25-2022 12:05-0400 Heart rate 62 /min Cathie Timmis [facility] 09-25-2022 12:05-0400 Mean blood pressure 100 mm[Hg] Cathie Timmis [facility] 09-25-2022 12:05-0400 Respiratory rate 12 /min Cathie Timmis [facility] 09-25-2022 12:05-0400 SaO2% (BldA) [Mass fraction] 98 % Cathie Timmis [facility] 09-25-2022 12:05-0400 Systolic blood pressure 161 mm[Hg] Cathie Timmis [facility] 09-25-2022 11:55-0400 Blood Pressure Location Cathie Timmis [facility] 09-25-2022 11:55-0400 FIO2 35 % Cathie Timmis [facility] 09-25-2022 11:55-0400 Respiratory rate 13 /min Cathie Timmis [facility] 09-25-2022 11:50-0400 FIO2 35 % Cathie Timmis [facility] 09-25-2022 11:45-0400 FIO2 35 % Cathie Timmis [facility] 09-25-2022 11:35-0400 Respiratory rate 16 /min Cathie Timmis [facility] 09-25-2022 09:23-0400 Mean blood pressure 95 mm[Hg] Cathie Timmis [facility] 09-25-2022 09:23-0400 Heart rate 70 /min Cathie Timmis [facility] 09-25-2022 09:22-0400 Mean blood pressure 94 mm[Hg] Cathie Timmis [facility] 09-22-2022 15:50-0400 Diastolic blood pressure 72 mm[Hg] Cathie Timmis [facility] 09-22-2022 15:50-0400 Heart rate 62 /min Cathie Timmis [facility] 09-22-2022 15:50-0400 Mean blood pressure 98 mm[Hg] Cathie Timmis [facility] 09-22-2022 15:50-0400 Systolic blood pressure 151 mm[Hg] Cathie Timmis [facility] 09-22-2022 15:49-0400 Heart rate 61 /min Cathie Timmis [facility] 09-22-2022 15:49-0400 SaO2% (BldA) [Mass fraction] 100 % Cathie Timmis [facility] 09-22-2022 15:49-0400 Diastolic blood pressure 77 mm[Hg] Cathie Timmis [facility] 09-22-2022 15:49-0400 Mean blood pressure 100 mm[Hg] Cathie Timmis [facility] 09-22-2022 15:49-0400 Systolic blood pressure 147 mm[Hg] Cathie Timmis [facility] 07-21-2022 09:22-0500 Diastolic blood pressure 71 mm[Hg] II Kyle Almendarez Work Phone: [facility] 07-21-2022 09:22-0500 Heart rate 68 /min II Kyle Almendarez Work Phone: [facility] 07-21-2022 09:22-0500 Respiratory rate 16 /min II Kyle Almendarez Work Phone: [facility] 07-21-2022 09:22-0500 SaO2% (BldA) [Mass fraction] 100 % II Kyle Almendarez Work Phone: [facility] 07-21-2022 09:22-0500 Systolic blood pressure 148 mm[Hg] II Kyle Almendarez Work Phone: [facility] 07-21-2022 07:53-0500 Body height 165.1 cm II Kyle Almendarez Work Phone: [facility] 07-21-2022 07:53-0500 Body mass index (BMI) [Ratio] 24.7 kg/m2 II Kyle Almendarez Work Phone: [facility] 07-21-2022 07:53-0500 Body weight 67.58 kg II Kyle Almendarez Work Phone: [facility] 07-21-2022 06:34-0500 Body temperature 98.1 [degF] II Kyle Almendarez Work Phone: [facility] 06-10-2022 09:23-0500 Body height 165.1 cm Danish Olguin MD Work Phone: [facility] [address] DO Work Phone: 06-10-2022 09:23-0500 Body mass index (BMI) [Ratio] 25.46 kg/m2 Danish Olguin MD Work Phone: [facility] [address] DO Work Phone: 06-10-2022 09:23-0500 Body surface area Derived from formula 1.77 m2 Danish Olguin MD Work Phone: [facility] [address] DO Work Phone: 06-10-2022 09:23-0500 Body weight 69.4 kg Danish Olguin MD Work Phone: [facility] [address] DO Work Phone: 06-10-2022 09:23-0500 Diastolic blood pressure 74 mm[Hg] Danish Olguin MD Work Phone: [facility] [address] DO Work Phone: 06-10-2022 09:23-0500 Heart rate 64 /min Danish Olguin MD Work Phone: [facility] [address] DO Work Phone: 06-10-2022 09:23-0500 Systolic blood pressure 116 mm[Hg] Danish Olguin MD Work Phone: [facility] [address] DO Work Phone: 11-20-2021 10:15-0400 Body height 167.64 cm Bandar Bales Other [facility] Other 11-20-2021 10:15-0400 Body mass index (BMI) [Ratio] 24.53 kg/m2 Bandar Bales Other [facility] Other 11-20-2021 10:15-0400 Body weight 68.95 kg Bandar Bales Other [facility] Other 10-16-2021 16:33-0400 Diastolic blood pressure 72 mm[Hg] Ke TORRE-C Work Phone: [facility] 10-16-2021 16:33-0400 Heart rate 69 /min Ke TORRE-C Work Phone: [facility] 10-16-2021 16:33-0400 Systolic blood pressure 163 mm[Hg] Ke TORRE-C Work Phone: [facility] 09-06-2021 14:30-0500 Diastolic blood pressure 74 mm[Hg] Danish Olguin MD Work Phone: [facility] [address] DO Work Phone: 09-06-2021 14:30-0500 Systolic blood pressure 138 mm[Hg] Danish Olguin MD Work Phone: [facility] [address] DO Work Phone: 09-06-2021 13:59-0500 Body height 165.1 cm Dnaish Olguin MD Work Phone: [facility] [address] DO Work Phone: 09-06-2021 13:59-0500 Body mass index (BMI) [Ratio] 25.96 kg/m2 Danish Olguin MD Work Phone: [facility] [address] DO Work Phone: 09-06-2021 13:59-0500 Body surface area Derived from formula 1.78 m2 Danish Olguin MD Work Phone: [facility] [facility] DO Work Phone: 09-06-2021 13:59-0500 Body weight 70.76 kg Danish Olguin MD Work Phone: [facility] [facility] DO Work Phone: 09-06-2021 13:59-0500 Diastolic blood pressure 74 mm[Hg] Danish Olguin MD Work Phone: [facility] [address] DO Work Phone: 09-06-2021 13:59-0500 Heart rate 70 /min Danish Olguin MD Work Phone: [facility] [facility] DO Work Phone: 09-06-2021 13:59-0500 Systolic blood pressure 160 mm[Hg] Danish Olguin MD Work Phone: [facility] DO Work Phone: 06-08-2021 13:00-0500 Body height 167.64 cm Loli Pineda Other [facility] Other 06-08-2021 13:00-0500 Body temperature 96.8 [degF] Loli Pineda Other [facility] Other 06-08-2021 13:00-0500 SaO2% (BldA) [Mass fraction] 96 % Loli Pineda Other [facility] Other 05-04-2021 12:25-0400 Body height 167.64 cm Adrienne Ginty Other [facility] Other 05-04-2021 12:25-0400 Body mass index (BMI) [Ratio] 24.63 kg/m2 Adrienne Ginty Other [facility] Other 05-04-2021 12:25-0400 Body temperature 96.4 [degF] Adrienne Ginty Other [facility] Other 05-04-2021 12:25-0400 Body weight 69.22 kg Adrienne Ginty Other [facility] Other 05-04-2021 12:25-0400 Diastolic blood pressure 67 mm[Hg] Adrienne Ginty Other [facility] Other 05-04-2021 12:25-0400 Respiratory rate 18 /min Adrienne Ginty Other [facility] Other 05-04-2021 12:25-0400 Systolic blood pressure 152 mm[Hg] Adrienne Ginty Other [facility] Other 04-11-2021 11:45-0400 Body height 167.64 cm Bandar Bales Other [facility] Other 04-11-2021 11:45-0400 Body mass index (BMI) [Ratio] 23.72 kg/m2 Bandar Bales Other [facility] Other 04-11-2021 11:45-0400 Body weight 66.68 kg Bandar Bales Other [facility] Other Encounters Encounter Date Encounter Type Care Provider Facility Start: 01-26-2025 End: 01-26-2025 Bamboo flowsheet Rosalva Dallas Hemmer PA Work Phone: [facility] Start: 01-26-2025 End: 01-26-2025 Bamboo flowsheet Rosalva Dallas Hemmer PA Work Phone: [facility] Start: 01-26-2025 End: 01-26-2025 Office outpatient visit 25 minutes Rosalva Howemer PA Work Phone: [facility] Comment on above: Other chest pain (Pr imary Dx); Benign essential hypertension ; Peripheral vascular disease; Malaise and fatigue; Shortness of breath Start: 01-26-2025 End: 01-26-2025 ambulatory ROSALVA HOWEMER Not Available Start: 01-18-2025 End: 01-18-2025 Bamboo flowsheet Rosalva Dallas Hemmer PA Work Phone: [facility] Start: 01-18-2025 End: 01-18-2025 Bamboo flowsheet Rosalva Dallas Hemmer PA Work Phone: [facility] Start: 01-18-2025 End: 01-18-2025 Office outpatient visit 15 minutes Rosalva Howemer PA Work Phone: [facility] Comment on above: Stage 3b chronic kid zaynab disease (CMS-HCC) (Primary Dx); Benign essential hypertension Start: 01-18-2025 End: 01-18-2025 ambulatory ROSALVA Dallas HEMMER Not Available Start: 11-24-2024 End: 11-24-2024 ambulatory Kyle Almendarez Facility:[facility] Start: 11-24-2024 End: 11-24-2024 ambulatory Kyle Almendarez II Work Phone: [facility] Work Phone: Start: 11-24-2024 End: 11-24-2024 Patient encounter procedure Kyle Almendarez II Work Phone: [facility] Physician [facility] Work Phone: Start: 11-14-2024 End: 11-14-2024 Emergency department patient visit Kyle Almendarez II Work Phone: [facility]gency Room Work Phone: Start: 09-21-2024 End: 09-21-2024 Bamboo flowsheet Rosalva Rust PA Work Phone: [facility] Start: 09-21-2024 End: 09-21-2024 Bamboo flowsheet Rosalva Rust PA Work Phone: [facility] Start: 09-21-2024 End: 09-21-2024 Office outpatient visit 15 minutes Rosalva TORRE Work Phone: [facility] Comment on above: Acute cough; Sinus pressure Start: 09-21-2024 End: 09-21-2024 ambulatory ROSALVA RUST Not Available Start: 09-13-2024 Non-patient / Non-visit Kyle Almendarez II Work Phone: [facility] Physician [facility] Work Phone: Start: 09-08-2024 Non-patient / Non-visit Kyle Almendarez II Work Phone: [facility] Physician [facility] Work Phone: Start: 09-08-2024 End: 09-08-2024 Admission to same day surgery center Kyle Almendarez II Work Phone: [facility]Dig[facility] Work Phone: Start: 09-08-2024 End: 09-08-2024 ambulatory Kyle Almendarez II Work Phone: [facility] Work Phone: Start: 09-07-2024 End: 09-07-2024 Bamboo flowsheet Rosalva TORRE Work Phone: [facility] Start: 09-07-2024 End: 09-07-2024 Bamboo flowsheet Rosalva TORRE Work Phone: [facility] Start: 09-07-2024 End: 09-07-2024 Patient encounter procedure Rosalva TORRE Work Phone: [facility] Comment on above: Medicare annual [facility] visit, subsequent (Primary Dx); ACP (advance care [...] Tremor Start: 09-07-2024 End: 09-07-2024 ambulatory ROSALVA RUST Not Available Start: 09-02-2024 End: 09-02-2024 ambulatory [facility] Work Phone: Start: 09-02-2024 End: 09-02-2024 Patient encounter procedure [facility] Work Phone: Start: 07-26-2024 End: 07-26-2024 Bamboo flowsheet Rosalva Rust PA Work Phone: [facility] Start: 07-26-2024 End: 07-26-2024 Bamboo flowsheet Rosalva Rust PA Work Phone: [facility] Start: 07-26-2024 End: 07-26-2024 Office outpatient visit 25 minutes Rosalva Rust PA Work Phone: [facility] Comment on above: Tinnitus of both ear s (Primary Dx); Benign essential hypertension (CMS/HCC); Physical deconditioning; Paroxysmal atrial fibrillation (CMS/HCC) Start: 07-26-2024 End: 07-26-2024 ambulatory ROSALVA RUST Not Available Start: 07-04-2024 End: 07-04-2024 Office outpatient visit 15 minutes Rosalva Rust PA Work Phone: [facility] Comment on above: Hair follicle infect ion (Primary Dx) Start: 07-04-2024 End: 07-04-2024 ambulatory ROSALVA RUST Not Available Start: 07-04-2024 End: 07-04-2024 Bamboo flowsheet Rosalva Rust PA Work Phone: [facility] Start: 07-04-2024 End: 07-04-2024 Bamboo flowsheet Rosalva Rust PA Work Phone: [facility] Start: 05-25-2024 End: 05-25-2024 Bamboo flowsheet Rosalva Rust PA Work Phone: [facility] Start: 05-25-2024 End: 05-25-2024 Bamboo flowsheet Rosalva Rust PA Work Phone: [facility] Start: 05-25-2024 End: 05-25-2024 Office outpatient visit 25 minutes Rosalva Rust PA Work Phone: [facility] Comment on above: Hordeolum externum o f left upper eyelid (Primary Dx); Encounter for screening mammogram for malignant neoplasm of breast; Hoarseness; Memory changes Start: 05-25-2024 End: 05-25-2024 ambulatory ROSALVA RUST Not Available Start: 03-31-2024 End: 03-31-2024 ambulatory II Kyle Almendarez Work Phone: [facility] Work Phone: Start: 03-31-2024 End: 03-31-2024 Patient encounter procedure II Kyle Almendarez Work Phone: [facility] Work Phone: Start: 03-28-2024 End: 03-28-2024 Patient encounter procedure II Kyle Almendarez Work Phone: [facility] [place] Work Phone: Start: 03-28-2024 End: 03-28-2024 ambulatory II Kyle Almendarez Work Phone: [facility] Work Phone: Start: 03-28-2024 End: 03-28-2024 Office outpatient visit 25 minutes Quita Hall MD Work Phone: [facility] Comment on above: Paroxysmal atrial fi brillation (Multi); Essential hypertension; Anticoagulated; BMI 25.0-25.9,adult; Former cigarette smoker; At high risk for falls Start: 03-28-2024 End: 03-28-2024 ambulatory [facility] Ambulatory Start: 03-05-2024 End: 03-05-2024 Patient encounter procedure II Kyle Almendarez Work Phone: [facility] C[facility] [place] Work Phone: Start: 03-05-2024 End: 03-05-2024 ambulatory II Kyle Almendarez Work Phone: [facility] Work Phone: Start: 02-29-2024 End: 02-29-2024 ambulatory ROSALVA RUST Not Available Start: 02-18-2024 End: 02-18-2024 ambulatory [facility] Ambulatory Start: 02-11-2024 End: 02-11-2024 ambulatory II Kyle Almendarez Work Phone: [facility] Work Phone: Start: 02-11-2024 End: 02-11-2024 Patient encounter procedure II Kyle Almendarez Work Phone: [facility] Work Phone: Start: 01-29-2024 End: 01-29-2024 Professional / ancillary services management Sridhar Mcgill [facility] Comment on above: Paroxysmal atrial fi brillation (Multi) Start: 01-29-2024 End: 01-29-2024 ambulatory DANISH Green [facility] Ambulatory Start: 07-15-2023 End: 07-15-2023 ambulatory Farnaz Gonzalez Other [facility] Other Start: 07-15-2023 Telephone encounter Farnaz JACKSON [facility] Start: 07-02-2023 End: 07-02-2023 Office outpatient visit 25 minutes Danish Olguin MD Work Phone: [facility] Comment on above: Paroxysmal atrial fi brillation (CMS/HCC) (Primary Dx); Essential hypertension; Anticoagulated Start: 06-29-2023 End: 06-29-2023 ambulatory Farnaz Gonzalez Other [facility] [employer] Other Start: 06-29-2023 Telephone encounter Farnaz JACKSON Compliance Lead Start: 06-22-2023 Office outpatient ne w 45 minutes Farnaz JACKSON [facility] Start: 06-22-2023 End: 06-22-2023 ambulatory II Kyle Almendarez Work Phone: [facility] Work Phone: Start: 06-22-2023 End: 06-22-2023 Patient encounter procedure II Kyle Almendarez Work Phone: [facility]XRay [place] Work Phone: Start: 05-28-2023 End: 05-28-2023 ambulatory Demetrio Nilson II Other [facility] [employer] Other Start: 05-28-2023 Office outpatient ne w 45 minutes Demetrio Brewster II [facility] [place] [facility] Start: 05-28-2023 End: 05-28-2023 Patient encounter procedure II Kyle Almendarez Work Phone: [facility] [place] [facility] Start: 03-17-2023 Rx Renewal Andrzej Boyd Smi th [employer]-POOL NURSE Work Phone: [facility] 250 DO Work Phone: Start: 02-18-2023 End: 02-19-2023 ambulatory Micah Walker Facility:[facility] Start: 02-18-2023 End: 02-18-2023 Lab Drop off Micah Walker [facility] Start: 11-10-2022 End: 12-10-2022 ambulatory SHAIKH Bobbi ROUSE Facility:H1 Start: 10-13-2022 End: 11-07-2022 ambulatory SHAIKH Bobbi HADDADD Facility:H1 Start: 09-25-2022 End: 09-25-2022 ambulatory Cathie Gomez Facility:[facility] Start: 09-25-2022 End: 09-25-2022 Admission to same day surgery center Cathie Gomez [facility] Start: 09-22-2022 End: 09-23-2022 ambulatory Kyle Zengxton Almendarez II Facility:[id number] Start: 09-22-2022 End: 09-22-2022 Patient encounter procedure Cathie Gomez [facility] Start: 09-10-2022 End: 10-10-2022 ambulatory SHAIKH Bobbi HADDADD Facility:H1 Start: 08-13-2022 End: 09-10-2022 ambulatory YOUNG H FAWWAD Facility:H1 Start: 07-21-2022 End: 07-21-2022 Admission to same day surgery center BERNIE Almendarez Work Phone: [facility]Surgery [facility] [place] Start: 07-21-2022 End: 07-21-2022 ambulatory BERNIE Almendarez Work Phone: [facility] Work Phone: Start: 07-14-2022 End: 08-13-2022 ambulatory YOUNG H FAWWAD Facility:H1 Start: 07-01-2022 End: 07-02-[address] KYLE ALMENDAREZ Facility:H1 Start: 06-12-2022 End: 07-13-[address] KYLE ALMENDAREZ Facility:H1 Start: 06-10-2022 Office outpatient vi sit 15 minutes Danish Olguin MD Work Phone: [facility] 250 DO Work Phone: Start: 06-10-2022 ambulatory Kyle Zengxtparisa Almendarez II Facility:[id number] Start: 05-26-2022 End: 05-27-[address] KYLE ALMENDAREZ Facility:H1 Start: 05-24-2022 End: 05-25-2022 ambulatory JULIAN BAIG Facility:H1 Start: 05-13-2022 End: 06-11-2022 ambulatory YOUNG H FAWWAD Facility:H1 Start: 04-14-2022 End: 05-12-2022 ambulatory YOUNG H FAWWAD Facility:H1 Start: 03-13-2022 End: 04-12-2022 ambulatory YOUNG H FAWWAD Facility:H1 Start: 02-10-2022 End: 03-12-2022 ambulatory YOUNG H FAWWAD Facility:H1 Start: 01-24-2022 Rx Renewal Danish nam MD Work Phone: [facility] 250 DO Work Phone: Start: 01-16-2022 End: 01-17-[address] KYLE ALMENDAREZ Facility:H1 Start: 01-10-2022 End: 02-07-2022 ambulatory SHAIKH Bobbi ROUSE Facility:H1 Start: 11-20-2021 End: 11-20-2021 ambulatory Bandar Bales Other [facility] Other Start: 11-20-2021 Office outpatient vi sit 15 minutes Bandar Adelinedinesh [facility] [place] Start: 11-12-2021 (Procedure) Short Bandar Lrdinesh [facility] Start: 11-12-2021 End: 11-12-2021 ambulatory Bandar Bales Other [facility] Other Start: 10-16-2021 End: 10-16-2021 Patient encounter procedure Ke Schaefer PA-C Work Phone: [facility] [place] Comment on above: Intervertebral disc disorder with radiculopathy of lumbar region Start: 09-09-2021 End: 09-09-2021 ambulatory Ke Ellington Other [facility] Other Start: 09-09-2021 Telephone encounter Ke Ellington [facility] Start: 09-06-2021 Office outpatient vi sit 25 minutes Danish Olguin MD Work Phone: [facility] [employer] 250 DO Work Phone: Start: 09-06-2021 Patient encounter procedure Danish Olguin MD Work Phone: [facility] [employer] 250 DO Work Phone: Start: 06-08-2021 End: 06-08-2021 ambulatory Loli Pineda Other [facility] Other Start: 06-08-2021 Office outpatient vi sit 15 minutes Lolijustin Pineda [facility] [place] Start: 05-04-2021 End: 05-04-2021 ambulatory Adrienne Ginty Other [facility] Other Start: 05-04-2021 Office outpatient vi sit 15 minutes Adrienne Ginty [facility] [place] Start: 04-11-2021 Office outpatient vi sit 25 minutes Bandar Bales [facility] [place] Start: 02-11-2018 Patient encounter procedure ANDRZEJ MARINELLI Facility:[id number] Start: 02-09-2018 Patient encounter procedure ANDRZEJ MARINELLI Facility:3 Start: 04-30-2016 Preoperative state Bandar Lr er Other [facility] Other Procedures Date Procedure Procedure Detail Performing Clinician Start: 09-08-2024 End: 09-08-2024 Colonoscopy Kyle Almendarez II Work Phone: Start: 06-01-2024 Mammography Rosalva [...] Danish Olguin MD Work Phone: Appendectomy Cathie Corderomis Arthroscopy of knee Catihe T immis Back fusion Cathie Bricenos Cholecystectomy Danish steele MD Work Phone: Cholecystectomy Cathiemarilyn Corderomi s Colonoscopy Danish Olguin MD Work Phone: Comment on above: Akash Lala; Decompression of med robert nerve Danish Olguin MD Work Phone: Decompression of med robert nerve Cathie Corderomis Dilation and curettage Bert Olguin MD Work Phone: Dilation and curettage Hilar y Timmis H/O: hysterectomy Cathie Cordero mis Hysterectomy Danish Olguin MD Work Phone: [...] Olguin MD Work Phone: Reduction mammoplasty Cathie Bricenos Surgical procedure on thorax Danish Olguin MD Work Phone: Tonsillectomy Cathie Corderomis Tonsillectomy and adenoidectomy Danish Olguin MD Work Phone: Total replacement of hip Crow Olguin MD Work Phone: Comment on above: bilateral; Total replacement of hip Nathalie Bricenos Plan of Treatment Date Care Activity Detail Author Start: 09-08-2034 Screening for malign ant neoplasm of colon [facility] Start: 07-21-2032 Screening for malign ant neoplasm of colon [facility] Start: 09-07-2025 Medicare Annual Wellness (AWV) Medicare Annual Wellness (AWV) [facility] Start: 06-01-2025 Screening for malign ant neoplasm of breast Mammogram [facility] Start: 03-16-2025 End: 03-16-2025 Patient encounter procedure 03/16/2025 10:45 AM EDT Office Visit [facility] [address] [facility] [facility] [address] [place] [address] Quita Hall MD [address] [facility] [address] [place] [address] [facility] Start: 02-27-2025 End: 02-27-2025 Patient encounter procedure 02/27/2025 10:45 AM EDT Appointment [facility] [address] [facility] [place] [address] [facility] Start: 02-25-2025 End: 03-28-2025 CBC panel - Blood by Automated count CBC Lab Routine Essential hypertension Expected: 02/25/2025 (Approximate), Expires: 03/28/2025 [facility] Work Phone: Comment on above: Expected: 02/25/2025 (Approximate), Expires: 03/28/2025 Start: 02-25-2025 End: 03-28-2025 Comprehensive metabolic 2000 panel - Serum or Plasma Comprehensive Metabolic Panel Lab Routine Essential hypertension Expected: 02/25/2025 (Approximate), Expires: 03/28/2025 [facility] Work Phone: Comment on above: Expected: 02/25/2025 (Approximate), Expires: 03/28/2025 Start: 01-26-2025 End: 01-26-2026 CT Chest W contrast IV CT chest w IV contrast Imaging High Priority Other chest pain Benign essential hypertension Peripheral vascular disease Malaise and fatigue Shortness of breath Expected: 01/26/2025 (Approximate), Expires: 01/26/2026 [facility] Work Phone: Comment on above: Expected: 01/26/2025 (Approximate), Expires: 01/26/2026 Start: 01-26-2025 End: 01-26-2025 Patient encounter procedure 01/26/2025 1:30 PM EDT Office Visit [facility] [address] [place] [address] Rosalva Rust, PA [address] [place] [address] Arrived [facility] Comment on above: Arrived Start: 01-18-2025 End: 01-18-2025 Patient encounter procedure 01/18/2025 11:00 AM EDT Office Visit [facility] [address] [place] [address] Rosalva Rust, PA [address] [place] [address] Arrived [facility] Comment on above: Arrived Start: 11-24-2024 Patient referral [facility] Work Phone: Start: 09-21-2024 Medicare Annual Wellness (AWV) Medicare Annual Wellness (AWV) [facility] Start: 09-21-2024 End: 09-21-2024 Patient encounter procedure 09/21/2024 1:30 PM EDT Office Visit [facility] [address] [place] [address] Rosalva Rust, PA [address] [place] [address] Arrived [facility] Comment on above: Arrived Start: 09-08-2024 [facility] Start: 09-07-2024 End: 09-07-2024 Patient encounter procedure 09/07/2024 1:30 PM EST Office Visit [facility] [address] [place] [address] Rosalva Rust, PA [address] [place] [address] Arrived [facility] Comment on above: Arrived Start: 07-26-2024 End: 07-26-2024 Patient encounter procedure 07/26/2024 11:30 AM EST Office Visit [facility] [address] [place] [address] Rosalva Rust PA [address] [place] [address] Arrived [facility] Comment on above: Arrived Start: 07-04-2024 End: 07-04-2024 Patient encounter procedure 07/04/2024 3:30 PM EST Office Visit [facility] [address] [place] [address] Rosalva Rust PA [address] [place] [address] Arrived [facility] Comment on above: Arrived Start: 06-29-2024 End: 06-29-2024 Patient encounter procedure [facility] Start: 05-27-2024 End: 07-25-2025 DBT Breast - bilateral screening Bilateral screening mammogram with tomosynthesis Imaging Routine Encounter for screening mammogram for malignant neoplasm of breast Expected: 05/27/2024, Expires: 07/25/2025 [facility] Work Phone: Comment on above: Expected: 05/27/2024 , Expires: 07/25/2025 Start: 03-28-2024 End: 03-28-2025 CBC panel - Blood by Automated count CBC Lab Routine Essential hypertension Expected: 03/28/2024 (Approximate), Expires: 03/28/2025 [facility] Work Phone: Comment on above: Expected: 03/28/2024 (Approximate), Expires: 03/28/2025 Start: 03-28-2024 End: 03-28-2025 Comprehensive metabolic 2000 panel - Serum or Plasma Comprehensive Metabolic Panel Lab Routine Essential hypertension Expected: 03/28/2024 (Approximate), Expires: 03/28/2025 [facility] Service Area Work Phone: Comment on above: Expected: 03/28/2024 (Approximate), Expires: 03/28/2025 Start: 03-28-2024 End: 03-28-2026 US Heart Transthoracic Transthoracic Echo Complete Echocardiography Routine Paroxysmal atrial fibrillation (Multi) Expected: 03/28/2024 (Approximate), Expires: 03/28/2026 [facility] Work Phone: Comment on above: Expected: 03/28/2024 (Approximate), Expires: 03/28/2026 Start: 03-13-2024 COVID-19 Vaccine ( season) COVID-19 Vaccine ( season) [facility] Start: 03-13-2024 Influenza vaccination Influenza Vacc ine (#1) [facility] Start: 02-11-2024 Plain X-ray of right hip XR hip RT min 2V(w/wo pelvis)* [facility] Start: 02-11-2024 XR Hip - right 2 Views [facility] Start: 06-09-2023 FUV, Provider: Danish Olguin, Status: Pen, Time: 11:10 AM FUV, Provider: Danish Olguin, Status: Pen, Time: 11:10 AM [facility] [employer] 250 DO Work Phone: Start: 05-26-2023 Screening for malign ant neoplasm of breast Mammogram [facility] Start: 03-13-2023 COVID-19 Vaccine ( season) COVID-19 Vaccine ( season) [facility] Start: 03-13-2023 Influenza vaccination Influenza Vacc ine (#1) [facility] Start: 07-21-2022 [facility] Start: 07-21-2022 [facility] Start: 06-10-2022 FUV, Provider: Danish Olguin, Status: Pen, Time: 10:20 AM FUV, Provider: Danish Olguin, Status: Pen, Time: 10:20 AM [facility] 250 DO Work Phone: Start: 03-13-2022 Influenza vaccination INFLUENZA (Sea son Ended) [facility] Start: 07-13-2021 ADVANCE DIRECTIVE DISCUSSION ADVANCE DIRECTIVE DISCUSSION [facility] Start: 08-04-2017 Pneumococcal Vaccine : 65+ Years (2 - PCV) Pneumococcal Vaccine: 65+ Years (2 - PCV) [facility] Start: 08-04-2017 Pneumococcal Vaccine : 65+ Years (2 of 2 - PCV) Pneumococcal Vaccine: 65+ Years (2 of 2 - PCV) [facility] Start: 2014 BONE DENSITY BONE DENSITY [facility] Start: 2014 PNEUMOVAX AGE 65 AND OVER WITH 5YR LOOKBACK (#1) PNEUMOVAX AGE 65 AND OVER WITH 5YR LOOKBACK (#1) [facility] Start: 2009 RSV patient s and/or patients aged 60+ years (1 - 1-dose 60+ series) RSV patients and/or patients aged 60+ years (1 - 1-dose 60+ series) [facility] Start: 1999 SHINGRIX VACCINE (1 of 2) SHINGRIX VACCINE (1 of 2) [facility] Start: 1999 Zoster Vaccines (1 o f 2) Zoster Vaccines (1 of 2) [facility] Start: 1994 COLOGUARD (FIT-DNA) COLOGUARD (FIT-D NA) [facility] Start: 1994 Colonoscopy COLONOSCOPY [facility] Start: 1994 COLORECTAL CANCER SCREENING COLORECTAL CANCER SCREENING [facility] Start: [address] COLONOGRAPHY [facility] Start: 1994 DIABETES SCREEN DIABETES SCREEN [facility] Start: 1994 FECAL OCCULT BLOOD FECAL OCCULT BLOO D [facility] Start: 1994 LIPID SCREEN LIPID SCREEN [facility] Start: 1994 SIGMOIDOSCOPY SIGMOIDOSCOPY [facility] Start: 1989 Mammography MAMMOGRAM [facility] Start: 1971 DTaP/Tdap/Td Vaccine s (1 - Tdap) DTaP/Tdap/Td Vaccines (1 - Tdap) [facility] Start: 1968 Urine microalbumin profile DTAP,TDAP,TD (1 - Tdap) [facility] Start: 1967 Diabetes mellitus screening Diabetes Screening [facility] Start: 1967 HEPATITIS C SCREENING HEPATITIS C [facility] Start: 1967 Hepatitis C screening Hepatitis C [facility] Start: 1961 Adult depression screening assessment DEPRESSION SCREENING [facility] Start: 1954 COVID-19 VACCINE (1) COVID-19 VACCIN E (1) [facility] Start: 01-01-1950 COVID-19 Vaccine (#1) COVID-19 Vacci ne (#1) [facility] Start: 1949 Lipid panel Lipid Panel [facility] Start: 1949 Medicare Annual Wellness Visit Medicare Annual Wellness Visit (AWV) [facility] Start: 1949 Screening for malign ant neoplasm of colon [facility] Start: 1949 Screening for osteoporosis Bone Density Scan [facility] Basic metabolic 1998 panel - Serum or Plasma Basic metabolic panel Lab Routine Stage 3b chronic kidney disease (CMS-HCC) Ordered: 01/18/2025 [employer] Work Phone: Comment on above: Ordered: 01/18/2025 ECG 12 Lead ECG 12 Lead ECG Routine Paroxysmal atrial fibrillation (Multi) 01/29/2024 10:42 AM EDT [facility] Service Area Work Phone: Lipid 1996 panel - Serum or Plasma Lipid panel Lab Routine Medicare annual wellness visit, subsequent Benign essential hypertension (CMS/HCC) Mixed hyperlipidemia (CMS/HCC) Ordered: 09/07/2024 [employer] Work Phone: Comment on above: Ordered: 09/07/2024 Patient Education Hemorrhoids Di verticulosis Know your Meds [facility] Work Phone: Patient referral [facility] Work Phone: PHARYNGITIS/LARYNGIT IS (HTRX) PHARYNGITIS/LARYNGITIS (HTRX) Lab Routine Acute cough Sinus pressure Ordered: 09/21/2024 [employer] Work Phone: Comment on above: Ordered: 09/21/2024 XR Lumbar spine Views [facility] Immunizations Immunization Date Immunization Notes Care Provider Kelton cook 04-11-2020 influenza, high dose seasonal, preservative-free Danish Olguin MD [facility] Phone[facility] Work Phone: 04-11-2020 Influenza, High-dose Seasonal, Quadrivalent, Preservative Free Rosalva TORRE Work Phone: [facility] 04-11-2020 influenza virus vaccine, unspecified formulation Danish Olguin MD Work Phone: [facility] Work Phone: 09-14-2019 Kenalog -40 mg Bandar Bales Other [facility] Other 05-18-2018 Durolane Bandar Bales Other [facility] Other 04-13-2018 Kenalog -40 mg Bandar Bales Other [facility] Other 03-13-2018 influenza virus vaccine, unspecified formulation Danish Olguin MD Work Phone: [facility] 250 DO Work Phone: 06-04-2017 influenza virus vaccine, unspecified formulation Danish Olguin MD Work Phone: [facility] 250 DO Work Phone: 04-14-2017 influenza, high dose seasonal, preservative-free Danish Olguin MD Work Phone: [facility] 250 DO Work Phone: 04-14-2017 Influenza, High-dose Seasonal, Quadrivalent, Preservative Free Rosalva TORRE Work Phone: [facility] 03-25-2017 Kenalog -40 mg Bandar Bales Other [facility] Other 03-25-2017 Euflexxa Bandar Bales Other [facility] Other 03-18-2017 Phong Bales Other [facility] Other 03-11-2017 Phong Bales Other [facility] Other 08-04-2016 pneumococcal polysaccharide vaccine, 23 valent Danish Olguin MD Work Phone: [place] [address] DO Work Phone: Payers Date Payer Category Payer Self-pay [id number] 2022 Medicare (Managed Care) [facility] [id number] 2021 Unknown ANTHEM BLUE CROS S AND BLUE SHIELD ANTHEM MEDIBLUE HMO [id number] 2021-Present [phone] [address] [place] [address] O [id number] 2020 Medicare [id number] 2018 Unknown 1959 Medicare [id number] 1949 Unknown [id number] 2.16.840.1.404145.3.579. 2.355 1949 Unknown [id number] 2.16.840.1.178618.3.579. 2.355 1949 Unknown [id number] 2.16.840.1.977515.3.579. 2.356 1949 Unknown [id number] 2.16.840.1.585316.3.579. 2.356 1949 Unknown [id number] 2.16.840.1.421087.3.579. 2.593 1949 Unknown [id number] 2.16.840.1.472502.3.579. 2.593 1949 Unknown [id number] 2.16.840.1.053952.3.579. 2.593 1949 Unknown [id number] 2.16.840.1.772975.3.579. 2.593 1949 Unknown [id number] 2.16.840.1.955307.3.579. 2.593 1949 Unknown [id number] 2.16.840.1.467626.3.579. 2.593 1949 Unknown [id number] 2.16.840.1.556321.3.579. 2.593 1949 Unknown [id number] 2.16.840.1.404880.3.579. 2.593 1949 Unknown [id number] 2.16.840.1.401447.3.579. 2.593 1949 Unknown [id number] 2.16.840.1.864375.3.579. 2.593 1949 Unknown [id number] 2.16.840.1.453107.3.579. 2.593 1949 Unknown [id number] 2.16.840.1.418045.3.579. 2.593 1949 Unknown [id number] 2.16.840.1.614536.3.579. 2.593 1949 Unknown [id number] 2.16.840.1.854719.3.579. 2.593 1949 Unknown [id number] 2.16.840.1.168443.3.579. 2.593 1949 Unknown [id number] 2.16.840.1.976403.3.579. 2.727 1949 Unknown [id number] 2.16.840.1.115200.3.579. 2.727 1949 Unknown [id number] 2.16.840.1.406071.3.579. 2.727 1949 Unknown [id number] 2.16.840.1.032364.3.579. 2.1244 1949 Unknown [id number] 2.16.840.1.708832.3.579. 2.1244 1949 Unknown [id number] 2.16.840.1.283818.3.579. 2.1244 1949 Unknown [id number] [id number]. 2.1259 1950 Unknown [id number] 2.16.840.1.217257.3.579. 2.1259 1950 Unknown [id number] 2.16.840.1.573982.3.579. 2.1259 1950 Unknown [id number] 2.16.840.1.749530.3.579. 2.1259 1950 Unknown [id number] 2.16.840.1.385477.3.579. 2.1259 1950 Unknown [id number] 2.16.840.1.587686.3.579. 2.1259 1950 Unknown [id number] 2.16.840.1.667129.3.579. 2.1259 1950 Unknown [id number] 2.16.840.1.231513.3.579. 2.1259 Medicare [id number] Medicare Medicare Rehab-IP Part A [id number] Private Health Insurance [employer] MCR PFFS M [id number] Private Health Insurance [employer] MCR PFFS [id number] Unknown [id number] Unknown HCAP/HFA/FAP Active [id number] Unknown [id number] 2.16.840.1.328384.3.579. 2.531 Unknown [id number] 2.16.840.1.402641.3.579. 2.531 Unknown [id number] 2.16.840.1.485799.3.579. 2.531 Unknown [id number] 2.16.840.1.152252.3.579. 2.531 Unknown [id number] 2.16.840.1.053182.3.579. 2.531 Unknown [id number] 2.16.840.1.607338.3.579. 2.531 Social History Date Type Detail Facility Start: 04-06-2023 End: 06-05-2023 No alcohol use No alcohol use [facility] Work Phone: Comment on above: quit 1970; Start: 10-16-2021 End: 01-01-2023 Tobacco smoking status NHIS Ex-smoker [facility] Start: 10-16-2021 End: 01-01-2023 Tobacco use and exposure Smokeless tobacco non-user [facility] Start: 1950 Sex Assigned At Not on file C [facility] Start: 10-06-2021 End: 03-28-2024 Exposure to SARS-CoV-2 (event) Not sure [facility] Start: 04-06-2023 End: 06-05-2023 Sex Assigned At [facility] Start: 1950 Sex Assigned At Female F [facility] Tobacco smoking status No Smokin g Status Entered [facility] Start: 08-01-2022 End: 06-05-2023 Tobacco smoking status NHIS Never smoked tobacco (finding) [facility] Start: 07-02-2023 End: 01-26-2025 Alcohol intake Lifetime non-drinker (finding) [facility] Work Phone: History of tobacco use Current smoker [facility] Work Phone: History of tobacco use Cigarette Smoker [facility] Work Phone: History of tobacco use Passive smoker [facility] Within the last year , have you been afraid of your partner or ex-partner? No [facility] Work Phone: Do you belong to any clubs or organizations such as christian groups, unions, fraternal or athletic groups, or school groups? Yes [...] Never true [facility] Start: 09-02-2024 End: 11-24-2024 Sex Female (finding) [facility] How often do you nee d to have someone help you when you read instructions, pamphlets, or other written material from your doctor or pharmacy [SILS] Rarely [facility] Work Phone: Medical Equipment Procedure Code Equipment Code Equipment Origin al Text Equipment Identifier Dates Fusion, spine, lumbar, XLIF XLIF 3 LEVEL MAS REDUCTION FDA Start: 08-21-2020 Fusion, spine, lumbar, XLIF Bone-screw internal spinal fixation system, non-sterile ()[id number] FDA Start: 08-21-2020 Fusion, spine, lumbar, XLIF Bone-screw internal spinal fixation system, non-sterile ()[id number] FDA Start: 08-21-2020 Fusion, spine, lumbar, XLIF Bone-screw internal spinal fixation system, non-sterile ()[id number] FDA Start: 08-21-2020 Fusion, spine, lumbar, XLIF Spinal fusion graft kit ()[id number] FDA Start: 08-21-2020 Fusion, spine, lumbar, XLIF Bone-screw internal spinal fixation system, non-sterile ()[id number] FDA Start: 08-21-2020 Fusion, spine, lumbar, XLIF Spinal fusion graft kit ()[id number] FDA Start: 08-21-2020 Fusion, spine, lumbar, XLIF Bone matrix implant, human-derived ()[id number] FDA Start: 08-21-2020 Fusion, spine, lumbar, XLIF Metallic spinal fusion cage, non-sterile ()[id number] FDA Start: 08-21-2020 Fusion, spine, lumbar, XLIF Metallic spinal fusion cage, non-sterile ()[id number] FDA Start: 08-21-2020 Fusion, spine, lumbar, XLIF Metallic spinal fusion cage, non-sterile ()[id number] FDA Start: 08-21-2020 Fusion, spine, lumbar, XLIF Bone-screw internal spinal fixation system, non-sterile ()[id number] FDA Start: 08-21-2020 Fusion, spine, lumbar, XLIF Bone-screw internal spinal fixation system, non-sterile ()[id number] FDA Start: 08-21-2020 Fusion, spine, lumbar, XLIF [...] FDA Start: 08-13-2017 Spinal fixation plate, non-bioabsorbable ()[id number] FDA Start: 02-14-2020 Bone-screw inter nal spinal fixation system, non-sterile ()[id number] FDA Start: 02-14-2020 Bone-screw inter nal spinal fixation system, non-sterile ()[id number] FDA Start: 02-14-2020 Intervertebral-b rosa internal spinal fixation system ()[id number] FDA Start: 02-14-2020 Goals Date Patient Goal Desired Activity /State Functional Status Date Assessment Result Facility 01-26-2025 Patient Health [facility] ionnaire 2 item (PHQ-2) [Reported] [facility] 01-18-2025 Patient Health Quest ionnaire 2 item (PHQ-2) [Reported] [facility] 09-22-2022 Functional Status No [facility] Clinical Notes 04-11-2021 to 01-26-2025 Rosalva Celena Yocasta, NICHO - 01/26/2025 1:30 PM Patric Rust, NIC[facility] - 01/18/2025 11:00 AM Patric Rust, NIC[facility] - 09/21/2024 1:30 PM Patric Rust, NICHO - 09/07/2024 1:30 PM EST Note Date & Type Note Facility 01-26-2025 History of Presen t illness Narrative Images from the original note were not included. Subjective Patient ID: Elicia Dent is a 74 y.o. female who presents for Chest Pain. Chest Pain Elicia Dent complains of chest pain. Onset was 3 days ago. Symptoms have been unchanged since that time. The patient's pain is constant. The patient describes the pain as difficult to describe and radiates to the upper back. Straight through to my back. Describes it as achy. Pain is 4-5/10. Associated symptoms are: none. Aggravating factors are: none. Alleviating factors are: none. Does c/o SOB. C/o burping with foam, occurs randomly. Does not seem to be associated with food. Admits sometimes forgets to take the Omeprazole, but has taken it for the last several days. No new changes in meds or supplements in the last week. Pain dose not worsen with a deep breath. Chest Pain Associated symptoms include dizziness (With position changes, not new for pt), malaise/fatigue, numbness (Chronic, unchanged) and shortness of breath. Pertinent negatives include no abdominal pain, cough, diaphoresis, fever, palpitations, syncope or vomiting. Over the past 2 weeks, how often have you been bothered by any of the following problems? Little interest or pleasure in doing things: Not at all Feeling down, depressed, or hopeless: Not at all Patient Health Questionnaire-2 Score: 0 Current Outpatient Medications on File Prior to Visit Medication Sig Dispense Refill albuterol HFA 90 mcg/act inhaler Inhale 2 puffs every 4 (four) hours if needed for shortness of breath amoxicillin (Amoxil) 500 MG capsule To take [...] (Leg Swelling) gabapentin (Neurontin) 300 MG capsule TAKE 1 CAPSULE BY MOUTH IN THE MORNING, then ONE CAPSULE BY MOUTH at noon, then ONE CAPSULE BY MOUTH IN THE EVENING, then ONE CAPSULE BY MOUTH BEFORE bedtime 400 capsule 3 Glucosamine-Chondroitin (GLUCOSAMINE CHONDR COMPLEX PO) 1 (one) time each day. Magnesium 400 MG capsule Take 400 mg by mouth 1 (one) time each day. metroNIDAZOLE (Metrogel) 1 % gel Apply topically Daily 60 g 2 omeprazole (PriLOSEC) [address] capsule TAKE 1 CAPSULE BY MOUTH IN THE MORNING 100 capsule 3 polyethylene glycol, PEG, 3350 (MiraLax) 17 GM/SCOOP powder Take 17 g by mouth in the morning. predniSONE (Deltasone) 20 MG tablet Take 40 mg by mouth Daily Vit-Fe Fumarate-FA ( Vitamin) 27-0.8 MG tablet 1 (one) time each day at the same time. propranolol (Inderal) 10 MG tablet Take 1 tablet (10 mg) by mouth Daily 90 tablet 3 spironolactone (Aldactone) 25 MG tablet TAKE 1 TABLET BY MOUTH IN THE MORNING 100 tablet 3 warfarin (Coumadin) 1 MG tablet Take 1 mg by mouth in the evening. warfarin (Coumadin) 2.5 MG tablet TAKE 1 TABLET BY MOUTH AT BEDTIME 100 tablet 3 zinc 50 MG tablet [...] Sibling Past Medical History: Diagnosis Date Asthma (HCC) Atrial fibrillation (HCC) Lewis esophagus Breast cancer (HCC) Chicken pox Chronic kidney disease Contusion of head 11/11/2023 Epistaxis Ganglion cyst GERD (gastroesophageal reflux disease) History of being hospitalized acute viral pneumonia secondary to Covid 19 (06/20/2021-06/21/2021) Hypertension Macular degeneration Migraine headache Osteoarthritis Pneumonia due to COVID-19 virus Postoperative anemia 11/11/2023 Renal hypertension Past Surgical History: Procedure Laterality Date APPENDECTOMY 1977 CARPAL TUNNEL RELEASE Bilateral 1998 CHOLECYSTECTOMY CHOLECYSTECTOMY 2003 COLONOSCOPY Bilateral COLONOSCOPY 07/21/2021 with egd DILATION AND CURETTAGE 1974 EGD 05/02/2020 HYSTERECTOMY 1995 KNEE SURGERY 2001 KNEE SURGERY 2016 LAMINECTOMY 08/21/2020 LUMBAR LAMINECTOMY 08/21/2020 L2-L5 fusion and decompressive laminectomy LUMBAR TRANSFORAMINAL EPIDURAL STEROID INJECTION 11/12/2021 MD BREAST REDUCTION 2002 MD EDG TRANSORAL BIOPSY SINGLE/MULTIPLE 06/02/2020 TONSILLECTOMY 195 TOTAL HIP ARTHROPLASTY 05/19/2016 Visit Vitals BP 126/62 Pulse 60 Temp 98.2 F Ht 5' 5 Wt 164 lb SpO2 98% BMI 27.29 kg/m Smoking Status Former BSA 1.85 m Review of Systems Constitutional: Positive for malaise/fatigue. Negative for chills, diaphoresis and fever. Respiratory: Positive for shortness of breath. Negative for cough and wheezing. Cardiovascular: Positive for chest pain. Negative for palpitations, leg swelling and syncope. Gastrointestinal: Negative for abdominal pain, blood in stool, constipation, diarrhea and vomiting. Genitourinary: Negative for hematuria. Skin: Negative for rash. Neurological: Positive for dizziness (With position changes, not new for pt), light-headedness and numbness (Chronic, unchanged). Negative for speech difficulty. Objective Physical Exam Constitutional: General: She is [...] and Affect: Mood normal. Behavior: Behavior normal. Office Visit on 01/18/2025 Component Date Value Ref Range Status Glucose 01/18/2025 93 65 - 99 mg/dL Final Comment: Fasting reference interval BUN 01/18/2025 34 (H) 7 - 25 mg/dL Final Creatinine 01/18/2025 0.90 0.60 - 1.00 mg/dL Final EGFR 01/18/2025 67 > OR = 60 mL/min/1.73m2 Final BUN/CREATININE RATIO 01/18/2025 38 (H) 6 - 22 (calc) Final Sodium 01/18/2025 142 135 - 146 mmol/L Final Potassium, Bld 01/18/2025 4.4 3.5 - 5.3 mmol/L Final Chloride 01/18/2025 102 98 - 110 mmol/L Final Carbon Dioxide 01/18/2025 32 20 - 32 mmol/L Final Calcium 01/18/2025 9.6 8.6 - 10.4 mg/dL Final Assessment/Plan Diagnoses and all orders for this visit: Other chest pain - CT chest w IV contrast; Future ECG completed in the office today and was reviewed by Dr. Chioma Mcneill, ECG showed Sinus Bradycardia with Sinus Arrhythmia. Normal ECG. Vitals and symptoms are stable at this time, so will proceed with outpatient testing for further evaluation. CT of the chest with contrast ordered for further evaluation. R/o aortic aneurysm/dissection, or other acute intrathoracic cause for her persistent, constant chest pain that is new in onset for pt within the last three days. Most recent BMP reviewed from 01/18/2025. She has had contrast in the past and tolerated it well. Advised if any worsening of symptoms prior to CT being completed, she is to go to ER or be taken to ER for further evaluation. She and her voiced understanding. Benign essential hypertension - CT chest w IV contrast; Future Patient's blood pressure is currently well controlled. Continue with current medications and I will continue to monitor. Goal BP remains less than 130/80. Peripheral vascular disease - CT chest w IV contrast; Future Continue ASA daily, also anticoagulated with Warfarin. Malaise and fatigue - CT chest w IV contrast; Future Recent onset. Will await CT results. Shortness of breath - CT chest w IV contrast; Future Recent onset. Will await CT results. No follow-ups on file. documented in this encounter [facility] 01-18-2025 History of Presen t illness Narrative Images from the original note were not included. HPI Mass Additional comments: Pt noticed a lump on the top of head that increases and decreases in size about a week ago. Sometimes it is painful. Last edited by Denice Pérez LPN on 01/18/2025 11:03 AM. Subjective Patient ID: Elicia Dent is a 74 y.o. female who presents for discussion on her kidney disease. Elicia is present today for a discussion on her kidney disease. She did do a test through her insurance so she could get $50 mcintosh back and when they called her they told her she was in stage 4 kidney disease and she was not aware she had kidney disease. Has been drinking more water, up to about 30 ounces a day intentionally, then occasionally another glass of water with a meal. Over the past 2 weeks, how often have you been bothered by any of the following problems? Little interest or pleasure in doing things: Not at all Feeling down, depressed, or hopeless: Not at all Patient Health Questionnaire-2 Score: 0 Current Outpatient Medications on File Prior to Visit Medication Sig Dispense Refill albuterol HFA 90 mcg/act inhaler Inhale 2 puffs every 4 (four) hours if needed for shortness of breath amoxicillin (Amoxil) 500 MG capsule To take [...] (Leg Swelling) gabapentin (Neurontin) 300 MG capsule TAKE 1 CAPSULE BY MOUTH IN THE MORNING, then ONE CAPSULE BY MOUTH at noon, then ONE CAPSULE BY MOUTH IN THE EVENING, then ONE CAPSULE BY MOUTH BEFORE bedtime 400 capsule 3 Glucosamine-Chondroitin (GLUCOSAMINE CHONDR COMPLEX PO) 1 (one) time each day. Magnesium 400 MG capsule Take 400 mg by mouth 1 (one) time each day. metroNIDAZOLE (Metrogel) 1 % gel Apply topically Daily 60 g 2 omeprazole (PriLOSEC) [address] capsule TAKE 1 CAPSULE BY MOUTH IN THE MORNING 100 capsule 3 polyethylene glycol, PEG, 3350 (MiraLax) 17 GM/SCOOP powder Take 17 g by mouth in the morning. predniSONE (Deltasone) 20 MG tablet Take 40 mg by mouth Daily Vit-Fe Fumarate-FA ( Vitamin) 27-0.8 MG tablet 1 (one) time each day at the same time. propranolol (Inderal) 10 MG tablet Take 1 tablet (10 mg) by mouth Daily 90 tablet 3 spironolactone (Aldactone) 25 MG tablet TAKE 1 TABLET BY MOUTH IN THE MORNING 100 tablet 3 warfarin (Coumadin) 1 MG tablet Take 1 mg by mouth in the evening. warfarin (Coumadin) 2.5 MG tablet TAKE 1 TABLET BY MOUTH AT BEDTIME 100 tablet 3 zinc 50 MG tablet [...] Sibling Past Medical History: Diagnosis Date Asthma (HCC) Atrial fibrillation (HCC) Lewis esophagus Breast cancer (HCC) Chicken pox Chronic kidney disease Contusion of head 11/11/2023 Epistaxis Ganglion cyst GERD (gastroesophageal reflux disease) History of being hospitalized acute viral pneumonia secondary to Covid 19 (06/20/2021-06/21/2021) Hypertension Macular degeneration Migraine headache Osteoarthritis Pneumonia due to COVID-19 virus Postoperative anemia 11/11/2023 Renal hypertension Past Surgical History: Procedure Laterality Date APPENDECTOMY 1977 CARPAL TUNNEL RELEASE Bilateral 1998 CHOLECYSTECTOMY CHOLECYSTECTOMY 2003 COLONOSCOPY Bilateral COLONOSCOPY 07/21/2021 with egd DILATION AND CURETTAGE 1974 EGD 05/02/2020 HYSTERECTOMY 1995 KNEE SURGERY 2000 KNEE SURGERY 2016 LAMINECTOMY 08/21/2020 LUMBAR LAMINECTOMY 08/21/2020 L2-L5 fusion and decompressive laminectomy LUMBAR TRANSFORAMINAL EPIDURAL STEROID INJECTION 11/12/2021 MD BREAST REDUCTION 2001 MD EDG TRANSORAL BIOPSY SINGLE/MULTIPLE 06/02/2020 TONSILLECTOMY 1958 TOTAL HIP ARTHROPLASTY 05/19/2016 Visit Vitals BP 138/86 Pulse 58 Resp 16 Ht 5' 5 Wt 163 lb 6.4 oz SpO2 99% BMI 27.19 kg/m Smoking Status Former BSA 1.84 m Review of Systems Constitutional: Negative for chills, fatigue and fever. Respiratory: Negative for cough, shortness of breath and wheezing. Cardiovascular: Negative for chest pain, palpitations and leg swelling. Gastrointestinal: Negative for abdominal pain, constipation, diarrhea, nausea and vomiting. Skin: Negative for rash. See HPI Objective Physical Exam Constitutional: General: She is not in acute distress. Appearance: Normal appearance. She is well-developed. HENT: Head: Normocephalic and atraumatic. Comments: Scalp checked today, no lump noted at this time. Minimal scattered very faint erythema. Eyes: General: No scleral icterus. Conjunctiva/sclera: Conjunctivae [...] Diagnoses and all orders for this visit: Stage 3b chronic kidney disease ([facility]-HCC) - Basic metabolic panel Will recheck kidney function with a BMP today. Will notify pt of the results once received. Encouraged pt to continue to work on increasing her water intake. Benign essential hypertension Patient's blood pressure is currently stable. Continue with current medications and I will continue to monitor. Advised no lump noted on exam today. Could be a cyst that occasionally become inflamed. Encouraged her to contact office if becomes mor pronounces or painful. She can try Head and Shoulders shampoo to calm mild scalp irritation. Follow up if symptoms worsen or fail to improve. documented in this encounter [facility] 09-21-2024 History of Presen t illness Narrative Images from the original note were not included. Subjective Patient ID: Elicia Dent is a 74 y.o. female who presents for URI. Elicia is present today for follow up bronchitis. She was seen on 09/02/24 at [facility]. Viral Bronchitis, rx'd Methylprednisone, Albuterol inhaler. Admits sinus pressure, headaches, runny nose with clear and yellow mucus, post nasal drainage, scratchy throat, nausea, body aches, productive cough. This has been on going since 09/02/24. Feels like she has improved some but not over being sick. Feels run down. States her had similar illness and was given Cefdinir with resolution of symptoms. Current Outpatient Medications on File Prior to Visit Medication Sig Dispense Refill albuterol HFA 90 mcg/act inhaler Inhale 2 puffs every 4 (four) hours if needed for shortness of breath amoxicillin (Amoxil) 500 MG capsule To take 4 pills by mouth 1 hour prior to procedure and for pills postprocedure by mouth 8 capsule 2 [] amoxicillin-clavulanate (Augmentin) 875-125 MG tablet Take 1 tablet (875 mg) by mouth in the morning and 1 tablet (875 mg) in the evening. Take with meals. Do all this for 7 days. 14 tablet 0 aspirin 81 MG EC tablet Take 81 [...] cancer (CMS/HCC) Chicken pox Chronic kidney disease Contusion of head 11/11/2023 Epistaxis Ganglion cyst GERD (gastroesophageal reflux disease) History of being hospitalized acute viral pneumonia secondary to Covid 19 (06/20/2021-06/21/2021) Hypertension (CMS/HCC) Macular degeneration Migraine headache (CMS/HCC) Osteoarthritis Pneumonia due to COVID-19 virus Postoperative anemia 11/11/2023 Renal hypertension (CMS/HCC) Past Surgical History: Procedure Laterality Date APPENDECTOMY 1977 CARPAL TUNNEL RELEASE Bilateral 1998 CHOLECYSTECTOMY CHOLECYSTECTOMY 2003 COLONOSCOPY Bilateral COLONOSCOPY 07/21/2021 with egd DILATION AND CURETTAGE 1975 EGD 05/02/2020 HYSTERECTOMY 1995 KNEE SURGERY 2001 KNEE SURGERY 2016 LAMINECTOMY 08/21/2020 LUMBAR LAMINECTOMY 08/21/2020 L2-L5 fusion and decompressive laminectomy LUMBAR TRANSFORAMINAL EPIDURAL STEROID INJECTION 11/12/2021 MD BREAST REDUCTION 2002 MD EDG TRANSORAL BIOPSY SINGLE/MULTIPLE 06/02/2020 TONSILLECTOMY 195 TOTAL HIP ARTHROPLASTY 05/19/2016 Visit Vitals BP 128/76 Pulse 54 Temp 98.6 F Resp 16 Ht 5' 5 Wt 160 lb 9.6 oz SpO2 98% BMI 26.73 kg/m Smoking Status Former BSA 1.83 m Review of Systems Constitutional: Negative for chills, fatigue and fever. HENT: Positive for congestion, postnasal drip, rhinorrhea, sinus pressure and sinus pain. Respiratory: Positive for cough. Negative for shortness of breath and wheezing. Cardiovascular: Negative for chest pain, palpitations and leg swelling. Gastrointestinal: Positive for nausea. Negative for abdominal pain, constipation, diarrhea and vomiting. Musculoskeletal: Positive for myalgias. Skin: Negative for rash. Neurological: Positive for headaches. Objective Physical Exam Constitutional: General: She is not in acute distress. Appearance: Normal appearance. She is well-developed. HENT: Head: Normocephalic and atraumatic. Right Ear: Tympanic membrane and ear canal normal. Left Ear: Tympanic membrane and ear canal normal. Nose: Right Turbinates: Swollen. Left Turbinates: Swollen. Right Sinus: No maxillary sinus tenderness or frontal sinus tenderness. Left Sinus: No maxillary sinus tenderness or frontal sinus tenderness. Comments: Turbinates with mild erythema Mouth/Throat: Mouth: Mucous membranes are moist. Pharynx: No posterior oropharyngeal erythema. Eyes: General: No scleral icterus. Conjunctiva/sclera: Conjunctivae normal. Cardiovascular: Rate and Rhythm: Normal rate and regular rhythm. Heart sounds: Normal heart sounds. No murmur heard. Pulmonary: Effort: Pulmonary effort is normal. No respiratory distress. Breath sounds: Normal breath sounds. No wheezing, rhonchi or rales. Comments: Occasional cough, dry Lymphadenopathy: Cervical: No cervical adenopathy. Skin: General: Skin is warm and dry. Neurological: General: No focal deficit present. Mental Status: She is alert and oriented to person, place, and time. Psychiatric: Mood and Affect: Mood normal. Behavior: Behavior normal. Assessment/Plan Diagnoses and all orders for this visit: Acute cough - PHARYNGITIS/LARYNGITIS (HTRX) Obtained throat swab for send out due to duration of illness. Will notify pt of results once received. Sinus pressure - PHARYNGITIS/LARYNGITIS (HTRX) Discussed options with patient. Can consider treatment with Cefdinir, however, did caution regarding potential for GI issues due to frequent antibiotic use, ie C diff. She is in agreement with waiting for swab results prior to initiating any additional treatment. Exam findings are mild today and lungs are clear. She has seen some improvement since taking Augmentin. Encouraged pt to continue to stay hydrated. Follow up if symptoms worsen or fail to improve. documented in this encounter [facility] 09-08-2024 Procedure note [facility] enter 09-08-2024 History and physi francisco note [facility] enter 09-07-2024 History of Present illness Narrative Formatting of this note is different fro m the original. Images from the original note were not included. 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 Correspondence from that specialist and any available testing were reviewed during today's visit. 10. Peripheral vascular disease (CMS/HCC) This is a chronic medical condition that is stable since last assessment. No changes in treatment are suggested at this time. 11. Tachycardia The patient is seeing a medical technologist chief for this condition, treatment is deferred to [...] 16. Stage 3b chronic kidney disease (HCC) (CMS/HCC) This is a chronic medical condition [...] hip The patient is seeing a medical technologist chief for this condition, treatment is deferred to [...] replacement The patient is seeing a medical technologist chief for this condition, treatment is deferred to [...] (around 12/05/2024) for Medication Follow Up. Rosalva Rust MSBS, GIOVANNYC documented in this encounter [facility] 09-02-2024 Evaluation note Diagnosis Onset Date Resolution Viral bronchitis acute September 02, 2024 9:46am [facility] [place] Work Phone: [phone]) 678-676302-21-2025 Evaluation note* Diagnosis Onset Date Resolution Status Admit Date Viral bronchitis acute September 02, 2024 9:46am Lumbar radiculopathy acute November 24, 2024 9:53am S/P lumbar fusion acute November 9:53am [facility] Work Phone: 1(718) 574-241801-14-2025 History of Present illness Narrative* NICHO Gamez [...] is pretty sedentary. [facility] was prone to overdoing it. Current Outpatient [...] laminectomy LUMBAR TRANSFORAMINAL EPIDURAL STEROID INJECTION 11/12/2021 MD BREAST REDUCTION 2001 MD EDG TRANSORAL BIOPSY SINGLE/MULTIPLE 06/02/2020 TONSILLECTOMY 1958 [...] No previous chronic lung disease, does have SONDIO, no signs of CHF on exam. Will monitor. Paroxysmal atrial fibrillation The patient is seeing a medical technologist chief for this condition, treatment is deferred to that specialist. Follow up in about 2 months (around 09/23/2024) for Medicare Wellness Visit. documented in this encounterCox [id number] History of Present illness Narrative* NICHO Gamez [...] DILATION AND CURETTAGE 1974 EGD 05/02/2020 HYSTERECTOMY 1994 KNEE SURGERY 2000 KNEE SURGERY 2016 LAMINECTOMY 08/21/2020 LUMBAR LAMINECTOMY 08/21/2020 L2-L5 fusion and decompressive laminectomy LUMBAR TRANSFORAMINAL EPIDURAL STEROID INJECTION 11/12/2021 MD BREAST REDUCTION 2001 MD EDG TRANSORAL BIOPSY SINGLE/MULTIPLE 06/02/2020 TONSILLECTOMY 1958 [...] for Medicare Wellness Visit. documented in this encounterCox [id number] History of Present illness Narrative* NICHO Gamez [...] laminectomy LUMBAR TRANSFORAMINAL EPIDURAL STEROID INJECTION 11/12/2021 MD BREAST REDUCTION 2001 MD EDG TRANSORAL BIOPSY SINGLE/MULTIPLE 06/02/2020 TONSILLECTOMY 1958 [...] for Medicare Wellness Visit. documented in this encounterCox [id number] History of Present illness Narrative* Quita Hall [...] in the 30s and 40s in the controls designer hours longest R to R interval 1.9 [...] exam, discussion and plan. [facility] Work Phone: 1(495) 294-248109-16-2024 Instructions* Patient Instructions* Barbie Westbrook LPN - [...] Provided instructions on exercise. documented in [facility] Work Phone: 1(234) 389-409207-19-2024 History of Present illness Narrative* Sridhar Mcgill [...] m (5' 5 ) documented in this [facility] Work Phone: 1([phone] 325-355612-21-2023 History of Present illness Narrative* Danish Olguin [...] name below, I, Xiomara ColemanBekah GREY , Scrziggy attest that this documentation has been prepared under the direction and in the presence of Mckenzie Olguin MD. documented in this [facility] Work Phone: 1(654) 997-503612-21-2023 Instructions* Patient Instructions* Shannan Giron LPN - [...] time of your visit. documented in this [facility] Work Phone: 1(129) 868-173512-11-2023 Evaluation note* Encounter Date Diagnosis Assessment Notes [...] to cost. Will order aqua therapy in [place]. Follow up in 8 weeks. Medical decision [...] fusion of cervical spine (ICD-10 - Z98.1) [facility] Other 11-16-2023 Evaluation note* Encounter Date Diagnosis [...] cause of her discomfort at this time. [facility] Other 03-16-2023 Hospital Discharge instructions Patient Education [...] instructions at home: Medicines Take or use bkbz-eov-dmwwsgr and prescription medicines only as told by [...] discomfort that does not get better with qkcn-ubs-bvdzvdj medicine. You have a fever. You have [...] 11/13/2017 Document Revised: 10/21/2019 Document Reviewed: 11/13/2017 [email or web address] Patient Education 2019 [employer]. 09/25/2022 12:53:18 Post Op Patient Instructions - FT (CUSTOM) Follow Up Care 09/19/2022 11:29:26 With:Cathie Gomez Address:Unknown When: Unknown Comments:As needed [facility]03-14-2023 Note [id number]:127[facility] 09-22-2022 [id number]:127[facility]05-11-2022 Evaluation note* Encounter Date Diagnosis Assessment [...] note writ ten by Leonidas Marinelli CMA, Network Applications Specialist. Edited and approved by Dr. Bandar Bales MD. [place] Other 04-06-2022 NoteHNO ID: [id number] Author: Ke Schaefer PA-C Service: ? Author Type: Physician Pr Intern Type: Progress Notes Filed: 10/16/2021 4:43 PM Note Text: Records reviewed and there is no mention of a right L5-S1 being done previously. We will have her get a right L5-S1 done as a diagnostic test per Dr. Dillard's request. Pt reports no change in sx's since last visit.Uk [id number] History of Present illness Narrative* Ke Schaefer PA-C - 10/16/2021 4:38 PM EDT Records reviewed and there is no mention of a right L5-S1 being done previously. We will have her get a right L5-S1 done as a diagnostic test per Dr. Dillard's request. Pt reports no change in sx's since last visit. documented in this encounterUniversity [facility]als [facility]02-25-2022 NoteHNO ID: [id number] Author: Michael Dillard MD Service: ? Author [...] a right L5/S1 transforaminal epidural Michael Dillard MDUk HealthcareXjuvxhep05-55-1837 NoteHNO ID: [id number] Author: Michael Dillard MD Service: ? Author [...] is the cause of her pain. Michael Dillard [facility]01-11-2022 NoteHNO ID: [id number] Author: Sophia Baltazar RT(R) Service: Radiology Author Type: Technologist Type: Progress [...] BY: RT Javad(R) July 23, 2021 12:16 [facility]nd[facility]ks40-[facility]-2506 NoteHNO ID: [id number] Author: Michael Dillard MD Service: ? Author Type: Physician Type: Progress Notes Filed: 07/23/2021 4:07 PM Note Text: SPINE SURGERY NEW PATIENT PCP: Corinna Davis MD REFERRING PROVIDER: Kyle Almendarez SUBJECTIVE HISTORY OF PRESENT ILLNESS: Elicia Dent is a 71 year old female presenting with leg pain. She had a L2-5 fusion done just over a year ago at [facility]. She states that since that surgery she's [...] DATE: July 23, 2021 TIME: 11:40 AM PAGER:[facility]11-27-2021 Evaluation note* Encounter Date Diagnosis Assessment [...] Patient care instructions given in writting by [facility] Care At Home document. [facility] Other 10-23-2021 Evaluation note* Encounter Date Diagnosis [...] water inside ear after shower may use chair spring assembler on lowest cool setting to blow dry. [...] (ICD-10 - H60.392) See above treatment plan [facility] Other 09-30-2021 Evaluation note* Encounter Date Diagnosis [...] note writ ten by Cecilia Raymond CMA, Network Applications Specialist. Edited and approved by Dr. Bandar Bales MD. [facility] Other Evaluation + Plan note Future Appointments Appointment Date:09/25/2022 10:30:00 AM Scheduled Provider: [facility] Diagnosis Intervertebral disc disorder with radiculopathy of lumbar region Thoracic or lumbosacral neuritis or radiculitis, unspecified documented in this encounter [facility] CenterEvaluation noteNo InformationNort [facility] Other Evaluation noteNo assessment information available [facility] Work Phone: Evaluation note* Diagnosis Paroxysmal atrial fibrillation (CMS/HCC)- Primary Atrial fibrillation Essential hypertension Unspecified essential hypertension Anticoagulated Encounter for long-term (current) use of anticoagulants documented in this encounter [facility] Work Phone: Evaluation note* Diagnosis Onset Date Resolution Status Greater trochanteric bursitis of right hip acute [facility] Work Phone: Evaluation note* Diagnosis Onset Date Resolution Status Greater trochanteric bursitis of right hip acute Greater trochanteric bursitis of right hip acute S/P lumbar fusion acute [facility] Work Phone: Evaluation note* Diagnosis Hordeolum externum of left upper eyelid- Primary Encounter for screening mammogram for malignant neoplasm of breast Hoarseness Dysphonia Memory changes documented in this encounter [facility] HealthcareEvaluation note* Diagnosis Paroxysmal atrial fibrillation (Multi) Atrial fibrillation documented in this encounter [facility] Work Phone: Evaluation note* Diagnosis Paroxysmal atrial fibrillation (Multi) Atrial fibrillation Essential hypertension Unspecified essential hypertension Anticoagulated Encounter for long-term (current) use of anticoagulants BMI 25.0-25.9,adult Former cigarette smoker Personal history of tobacco use, presenting hazards to health At high risk for falls documented in this encounter [facility] Work Phone: Evaluation note* Diagnosis Hair follicle infection- Primary Carbuncle and furuncle of unspecified site documented in this encounter [facility] HealthcareEvaluation note* Diagnosis Tinnitus of both ears- Primary Unspecified tinnitus Benign essential hypertension (CMS/HCC) Essential hypertension, benign Physical deconditioning Muscular wasting and disuse atrophy, not elsewhere classified Paroxysmal atrial fibrillation (CMS/HCC) Atrial fibrillation documented in this encounter [facility] HealthcareEvaluation note* Diagnosis Medicare annual wellness [...] constipation Stage 3b chronic kidney disease (HCC) ([facility]/HCC) Contracture, right ankle Edema of right lower [...] Mixed hyperlipidemia (CMS/HCC) Mixed hyperlipidemia Reactive depression ([facility]/HCC) Rosacea Tinnitus of both ears Unspecified tinnitus Tremor Abnormal involuntary movements documented in this encounter [facility] HealthcareEvaluation note* Diagnosis Acute cough Sinus pressure Other diseases of nasal cavity and sinuses documented in this encounter [facility] HealthcareEvaluation note* Diagnosis Stage 3b chronic kidney disease ([facility]-HCC)- Primary Benign essential hypertension Essential hypertension, benign documented in this encounter [facility] HealthcareEvaluation note* Diagnosis Other chest pain- Primary Benign essential hypertension Essential hypertension, benign Peripheral vascular disease Unspecified peripheral vascular disease Malaise and fatigue Shortness of breath documented in this encounter [facility] HealthcareHistory and physical note Author Apryl Cardenas [facility] Note Date/Time September 08, 2024 11:37am [facility] [address] [place] [address] Gastroenterology H&P Signed Patient: Elicia Dent MR#: [id number] : 1950 Acct:[id number] Age/Sex: 74 / F Adm Date: 5 Loc: Room: Type: [facility] Attending Dr: Apryl Cardenas DO Copies [...] signed by Apryl Cardenas DO> 09/08/24 1137 [facility] Work Phone: History general Narrative - Reported* Type Description Date Medical History hypertension Medical History breast cancer Medical History GERD Medical History barretts esoph Medical History macular degeneration right eye Medical History Atrial fibrillation Medical History Asthma Medical History degenerative disc disease Medical History spinal stenosis Surgical History tonsillectomy 9 Surgical History Tonsils 9 Surgical History D & C 1975 Surgical History D&C 1975 Surgical History appendectomy 1976 Surgical History hysterectomy 1994 Surgical History Carpal Tunnel Release robert 1998 Surgical History carpal tunnel surgery 1997 Surgical [...] and admission for cardiac testing in 2011 [facility] Other History general Narrative - Reported* Type [...] 1994 Surgical History Carpal Tunnel Release robert 1998 Surgical History carpal tunnel surgery 1997 Surgical [...] and admission for cardiac testing in 2011 [facility] Other History of Present illness NarrativePatient returns [...] necessary. We did advocate diet exercise and weightloss.[facility] 250 DO Work Phone: History of Present illness [...] merits of a modest diet and weight loss.[facility] 250 DO Work Phone: Hospital course Narrative No data available for this section [facility] Dis[facility] instructions No data available for this section [facility] Discharge instructionsAmbulatory Orders* Referral to PT / OT / Speech (PT/OT/SP) Location: None [facility] Work Phone: Progress note No data available for this section [facility] CenterReason for referral (narrative)* Consultation (Routine) - Authorized Specialty Diagnoses / Procedures Referred By Pollo martínez Referred To Contact Cardiology Diagnoses Paroxysmal atrial fibrillation (CMS/HCC) Procedures Follow Up In Cardiology Danish Olguin MD [address] [address] Danish Olguin MD [address], [address] [address] Referral ID Status Reason Start Date Expiration Date V isits Requested Visits Authorized [id number] Authorized 07/02/2023 07/01/2024 1 1 [facility] Work Phone: Summary Purpose Family History [...] Date Viral bronchitis September 02, 2024 9:46am Chief Complaint Admit Date cough September 02, 2024 9:46am IBS-C/Constipation/ September 08, 2024 10:15am IBS-C/Constipation/ September 08, 2024 11:37am Amb Documentation September 13, 2024 10:5 3am Rt hip/knee pain November 14, 2024 10:19a m Chief Complaint Admit Date cough September 02, 2024 9:46am IBS-C/Constipation/ September 08, 2024 10:15am IBS-C/Constipation/ September 08, 2024 11:37am Amb Documentation September 13, 2024 10:5 3am Rt hip/knee pain November 14, 2024 10:19a m increased low back/BLE pain November 24 9:53am Reason for Visit Admit Date Viral bronchitis September 02, 2024 9:46am Lumbar radiculopathy November 24, 2024 9:53 am S/P lumbar fusion November 24, 2024 9:53a m Reason for Referral Specialty Diagnoses / Procedures Referred By Contac t Referred To Contact Cardiology Diagnoses Paroxysmal atrial fibrillation (Multi) Procedures Transthoracic Echo Complete MD ECHO TTHRC R-T 2D W/WOM-MODE COMPL SPEC&COLR D Quita Hall MD [address] [place] [address] Referral ID Status Reason Start Date Expiration Date Visits Requested Visits Authorized [id number] Pending Review Perform Procedure 03/28/2024 03/28/2025 1 1 Specialty Diagnoses / Procedures Referred By Contac t Referred To Contact Cardiology Diagnoses Paroxysmal atrial fibrillation (Multi) Procedures Follow Up In Cardiology Quita Hall MD [address] [place] [address] Quita Hall MD [address] [place] [address] Referral ID Status Reason Start Date Expiration Date V isits Requested Visits Authorized [id number] Authorized 03/28/2024 03/28/2025 1 1 Reason aqua therapy - evalu ate and treat Diagnosis 1 DDD (degenerative di sc disease), lumbar (M51.36) Referral Organization [facility] u[facility] Referring Provider First Name Farnaz Referring Provider Last Name Lisa Referring Provider Specialty Nurse Pract itioner Referred Organization [facility] Referred Address [address] [place], [place],[address] Referred Provider Specialty Physical The rapist Referral Priority Routine Reason Please refer to Dr. Davis. Patient is former [facility] patient. Diagnosis 1 DDD (degenerative di sc disease), lumbar (M51.36) Diagnosis 2 Spondylolisthesis at L3-L4 level (M43.16) Diagnosis 3 Spondylolisthesis at L4-L5 level (M43.16) Diagnosis 4 Other spondylosis wi th radiculopathy, lumbar region (M47.26) Referral Organization [facility] Referring Provider First Name Demetrio Referring Provider Last Name Nilson GIBBS Referring Provider Specialty Orthopedic Surgery Referred Organization [facility] urosurgery Referred Provider Eriberto Davis Referred Address [address] [address] ,[place], [place],[address] Referred Provider Specialty Neurological Surgery Referral Priority Routine General Notes Shaina Ramirez 12:02:24 PM >Received today, saw in November 2020. Sending p2p at this time Additional Source Comments INFORMATION SOURCE (unrecogn ized section and content) DATE CREATED AUTHOR 06/27/2018 [facility] DATE CREATED AUTHOR AUTHOR'S ORGANIZ ATION 07/24/2021 [facility] DATE CREATED AUTHOR AUTHOR'S ORGANIZ ATION 08/31/2021 [facility] dical Specialist DATE CREATED AUTHOR AUTHOR'S ORGANIZ ATION 10/03/2021 [facility] DATE CREATED AUTHOR AUTHOR'S ORGANIZ ATION 10/19/2021 [facility] DATE CREATED AUTHOR AUTHOR'S ORGANIZ ATION 06/12/2022 [facility] DATE CREATED AUTHOR AUTHOR'S ORGANIZ ATION 11/11/2022 [facility] DATE CREATED AUTHOR AUTHOR'S ORGANIZ ATION 12/19/2022 [facility] DATE CREATED AUTHOR AUTHOR'S ORGANIZ ATION 02/19/2023 [facility] DATE CREATED AUTHOR AUTHOR'S ORGANIZ ATION [facility] DATE CREATED AUTHOR AUTHOR'S ORGANIZ ATION 12/09/2024 [facility] y[facility] DATE CREATED AUTHOR AUTHOR'S ORGANIZ ATION 01/23/2025 [facility] DATE CREATED AUTHOR AUTHOR'S ORGANIZ ATION 01/30/2025 [facility] dical Specialists EPIC Source Comments (unrecognize d section and content) In the event this informatio n is protected by the Federal Confidentiality of Alcohol and Drug Abuse Patient Records regulations: The Federal rules restrict any use of the information to criminally investigate or prosecute any alcohol or drug abuse patient.[facility] Reason for Visit (unrecogniz ed section and content) Reason Comments Follow Up Reason Comments Follow-up 1 year Reason Comments EKG visit Specialty Diagnoses / Procedures Referred By Pollo martínez Referred To Contact Diagnoses Paroxysmal atrial fibrillation (Multi) Procedures ECG 12 Lead Danish Olguin MD [address] [facility] [address], [address] [address] Referral ID Status Reason Start Date Expiration Date V isits Requested Visits Authorized [id number] Authorized 01/26/2024 01/25/2025 1 1 Reason Comments Follow-up Med change afib Specialty Diagnoses / Procedures Referred By Contac t Referred To Contact Cardiology Diagnoses Paroxysmal atrial fibrillation (Multi) Procedures Follow Up In Cardiology Andrzej Marinelli, IMPORT CUSTOMS CLEARING AGENT-CHENTE [address] [facility] [address], [address] [address] Quita Hall MD [address] [place] [address] Referral ID Status Reason Start Date Expiration Date V isits Requested Visits Authorized [id number] Authorized 02/23/2024 02/22/2025 1 1 Reason Comments Sinusitis She [facility] on [facility] - admits runny nose with clear mucus, sinus pressure, left ear pain, cough (improving). At urgent care they rx'd albuterol inhaler and a medrol dose [place]. Has colonoscopy scheduled for tomorrow Reason Comments Mass Pt noticed a lump on the top of head that increases and decreases in size about a week ago. Sometimes it is painful. Reason Comments Chest Pain Care Teams (unrecognized sec tion and content) Die Designer Relationship Specialty Start Date End Date Corinna Davis MD [address] [facility] [place] [phone] PCP - General Family Practice 04/18/14 Kyle Almendarez II [address] [place], [place] [id number] Referring Internal Medicine 05/23/21 Team Status: Inactive [...] Almendarez II MD Primary Care Provider Active ASHA EppersonC Attending Provider Active Die Designer Relationship Specialty Start Date End Date Kyle Almendarez MD [address] [place] [address] PCP - General Internal Medicine 07/02/23 Team [...] 2024 Team Status: Inactive Member Role Status Amanda Almendarez II MD Primary Care Provider Active Start: March 05, 2024 End: March 05, 2024 Eriberto Davis MD Attending Provider Active Star t: March 05, 2024 End: March 05, 2024 Team Status: Inactive Member Role Status Amanda [...] March 31, 2024 End: March 31, 2024 Die Designer Relationship Specialty Start Date End Date Kyle Almendarez MD [address] [place] [address] PCP - Devoted 07/13/22 Kyle Almendarez MD [address] [place] [address] PCP - General Internal Medicine 11/24/22 Die Designer Relationship Specialty Start Date End Date Kyle Almendarez MD [address] [place] [address] PCP - [facility]oted 07/13/22 Kyle Almendarez MD [address] [place] [address] PCP - General Internal Medicine 11/24/22 Die Designer Relationship Specialty Start Date End Date Kyle Almendarez MD [address] [place] [address] PCP - General Internal Medicine 07/02/23 Die Designer Relationship Specialty Start Date End Date Kyle Almendarez MD [address] [place] [address] PCP - General Internal Medicine 07/02/23 Die Designer Relationship Specialty Start Date End Date Kyle Almendarez MD [address] [place] [address] PCP - Devoted 07/13/22 Kyle Almendarez MD [address] [place] [address] PCP - General Internal Medicine 11/24/22 Die Designer Relationship Specialty Start Date End Date Kyle Almendarez MD [address] [place] [address] PCP - Devoted 07/13/22 Kyle Almendarez MD [address] [place] [address] PCP - General Internal Medicine 11/24/22 Die Designer Relationship Specialty Start Date End Date Kyle Almendarez MD [address] [place] [address] PCP - [facility]oted 07/13/22 Kyle Almendarez MD [address] [place] [address] PCP - General Internal Medicine 11/24/22 Team Status: Inactive Member Role Status Dates Kyle Almendarez II MD Primary Care Provider Active Start: September 02, 2024 End: September 02, 2024 Vero Suazo APRN Attending Provider Active Start: September 02, 2024 End: September 02, 2024 Die Designer Relationship Specialty Start Date End Date Kyle Almendarez MD [address] [place] [address] PCP - [facility]oted 07/13/22 Kyle Almendarez MD [address] [place] [address] PCP - General Internal Medicine 11/24/22 Jenae Warren, KATIE Clinical Advocate Family Medicine 08/19/24 Die Designer Relationship Specialty Start Date End Date Kyle Almendarez MD [address] [place] [address] PCP - [facility] 07/13/22 Kyle Almendarez MD [address] [place] [address] PCP - General Internal Medicine 11/24/22 Jenae Warren, RN Clinical Advocate [facility] 08/19/24 Team Status: Inactive Member Role [...] Other Provider Active Start: September 08, 2024 Die Designer Relationship Specialty Start Date End Date Kyle Almendarez MD [address] [place] [address] PCP - Devoted 07/13/22 Kyle Almendarez MD [address] [place] [address] PCP - General Internal Medicine 11/24/22 Jenae Warren, RN Clinical Advocate [facility] 08/19/24 Die Designer Relationship Specialty Start Date End Date Kyle Almendarez MD [address] [place] [address] PCP - [facility]oted 07/13/22 Kyle Almendarez MD [address] [place] [address] PCP - General Internal Medicine 11/24/22 Jenae Warren, RN Clinical Advocate Family Medicine 08/19/24 Team Status: Active Member Role Status Dates Kyle Almendarez II MD Primary Care Provider Active Start: September 13, 2024 Stormy Abreu Attending Provider Active Start: [facility] 2024 Team Status: Inactive Member Role Status Dates Kyle Almendarez II MD Primary Care Provider Active Start: November 14, 2024 End: November 14, 2024 Marcos Pineda APRN Emergency Provider Active Start: November 14, 2024 End: November 14, 2024 Team Status: Inactive Member Role Status Dates Kyle Almendarez II MD Primary Care Provider Active Start: November 24, 2024 End: November 24, 2024 Cinthia Xie APRN Attending Provider Active Start: November 24, 2024 End: November 24, 2024 Die Designer Relationship Specialty Start Date End Date Kyle Almendarez MD [address] [place] [address] PCP - [facility] 07/13/22 Kyle Almendarez MD [address] [place] [address] PCP - General Internal Medicine 11/24/22 Alesia Zhu LPN [address] [place] [address] 09/30/24 Die Designer Relationship Specialty Start Date End Date Kyle Almendarez MD [address] [place] [address] PCP - Devoted 07/13/22 Kyle Almendarez MD [address] [place] [address] PCP - General Internal Medicine 11/24/22 Alesia Zhu LPN [address] [place] [address] 09/30/24 Die Designer Relationship Specialty Start Date End Date Kyle Almendarez MD [address] [facility] [address] [place] [address] PCP - Devoted 07/13/22 Kyle Almendarez MD [address] [facility] [address] [place] [address] PCP - General Internal Medicine 11/24/22 Alesia Zhu LPN [address] [facility] [address] [place] [address] 09/30/24 Goals (unrecognized section and content) Goals may [...] BE BASED ON THE PRIMARY CLINICAL RECORDS. [employer] provides no warranty or guarantee of the accuracy or completeness of information in this document.
--- NOTE | 2025-01-30 07:44 | CT_ITS ---
The [address] [address] Patient Name: AFSHIN DENT MRN: [id number] date: 1950 Sex: F Assigned Patient Location: LAB Current Patient Location: LAB Accession/Order Number: [id number] Exam Date: 01/30/2025 08:34 Report Date: 01/30/2025 08:37 At the request of: ANTHONY MCKENNA Procedure: CT chest w con CT CHEST WITH INTRAVENOUS CONTRAST: CLINICAL HISTORY: Chest Pain, Shortness Of Breath, Malaise And Fatigue COMPARISON: None TECHNIQUE: Spiral images were obtained through the chest following intravenous administration of IV contrast. This CT exam was performed using one or more following dose reduction techniques: Automated exposure control, adjustment of the mA and/or kV according to patient size, or use of iterative reconstruction technique. FINDINGS: Mediastinum:Thoracic aorta appears normal in caliber. Pulmonary trunk appears nondilated. No pleural effusion or lymphadenopathy. The esophagus is grossly unremarkable. Lungs:Mild dependent and bibasilar atelectasis. No consolidation pneumothorax or pleural effusion. No suspicious pulmonary nodule. Abd:Subcentimeter low-attenuation lesion involving the right lobe of liver too small for accurate characterization. Soft tissues/Bones: No acute findings. Osseous structures demonstrate degenerative change. CT/CT chest w con IMPRESSION: No acute findings. Impression dictated by: George Bernabe Jr., D.O. 01/30/2025 8:37 AM Dictation Location: [email or web address] GROUP HEALTH COOPERATIVE CENTRAL HOSPITALamBX Electronically authenticated by: [id number] Y Date: 01/30/2025 08:37
[2025-01-30 07:47] LABS: Estimated GFR (African America >60 (>=60 mL/min/1.73m^2); Estimated GFR (Non-African Ame >60 (>=60 mL/min/1.73m^2)
== END 2025-01-30 07:22 | disposition home or self-care (01) ==
LOC: LAB 07:22
PROVIDERS: Pathology Anatomic Pathology & Clinical Pathology; PCP Internal Medicine; Visit Provider Physician Assistant
DX: R07.89 Other chest pain (principal); I10 Essential (primary) hypertension; I73.9 Peripheral vascular disease, unspecified; R53.81 Other malaise; R53.83 Other fatigue; R06.02 Shortness of breath
CPT/HCPCS: 36415; 71260; 82565; Q9967

== ENCOUNTER 2025-02-10 02:13 | Outpatient (RCR) | payer OTHER, SELFPAY | END 2025-03-09 13:14 | disposition home or self-care (01) | LOC: MM 02:13 | PROVIDERS: PCP Internal Medicine; Visit Provider Internal Medicine | DX: Z51.81 Encounter for therapeutic drug level monitoring (principal); Z79.01 Long term (current) use of anticoagulants; I48.91 Unspecified atrial fibrillation | CPT/HCPCS: 85610; G0463 ==

== ENCOUNTER 2025-03-13 01:13 | Outpatient (RCR) | payer OTHER, SELFPAY | END 2025-04-11 15:26 | disposition home or self-care (01) | LOC: MM 01:13 | PROVIDERS: PCP Internal Medicine; Visit Provider Internal Medicine | DX: Z51.81 Encounter for therapeutic drug level monitoring (principal); Z79.01 Long term (current) use of anticoagulants; I48.91 Unspecified atrial fibrillation | CPT/HCPCS: 85610; G0463 ==

== ENCOUNTER 2025-04-12 04:25 | Outpatient (RCR) | payer OTHER, SELFPAY | END 2025-05-12 23:59 | disposition home or self-care (01) | LOC: MM 04:25 | PROVIDERS: PCP Internal Medicine; Visit Provider Internal Medicine | DX: Z51.81 Encounter for therapeutic drug level monitoring (principal); Z79.01 Long term (current) use of anticoagulants; I48.91 Unspecified atrial fibrillation | CPT/HCPCS: 85610; G0463 ==

== ENCOUNTER 2025-05-13 | Outpatient (RCR) | payer OTHER, SELFPAY | END 2025-06-11 23:59 | disposition home or self-care (01) | LOC: MM | PROVIDERS: PCP Internal Medicine; Visit Provider Internal Medicine | DX: Z51.81 Encounter for therapeutic drug level monitoring (principal); Z79.01 Long term (current) use of anticoagulants; I48.20 Chronic atrial fibrillation, unspecified | CPT/HCPCS: 85610; G0463 ==

== ENCOUNTER 2025-06-01 12:40 | Outpatient (OUT) | payer OTHER, SELFPAY ==
--- NOTE | 2025-06-01 12:43 | MM_ITS ---
Patient Name: AFSHIN DENT MR#: [id number] : 1950 Exam Date: 06/01/2025 Ordering Doctor: DR ANTHONY TORRE RADIOLOGY REPORT PROCEDURE: MM TOMOSYNTHESIS SCREENING BI COMPARISON: MM TOMOSYNTHESIS SCREENING BI, 05/31/2024. MM TOMOSYNTHESIS SCREENING BI, 05/27/2023. MG MAMM SCREEN 3D АННА CAD, 05/26/2022. MG MAMM LT UNI W CAD DIG, 04/27/2013. INDICATIONS: Screening Calculator Name NCI Breast Cancer Risk Assessment Tool 5 Year Breast Cancer Risk n/a% Lifetime Breast Cancer Risk n/a% Personal Breast Cancer Yes, Left breast cancer 2001 Personal Ovarian Cancer No Treatments Pt. had анна breast reduction surgery in 2001. Lt breast cancer found in excised tissue Family Cancers Aunt-maternal with breast cancer at age ~70; Aunt-maternal with breast cancer at age ~70; Aunt-maternal with breast cancer at age ~70; Father with lung, prostate, colon cancer at age ~75; Sister with colon cancer at age 51; Brother with lung cancer at age 64; Grandmother-maternal with lung cancer at age ~80; Uncle-maternal with colon cancer at age ~70. LOCATION: [facility] BREAST COMPOSITION: There are scattered areas of fibroglandular density. FINDINGS: DIAGNOSTIC CATEGORY 1--NEGATIVE. RIGHT BREAST: No significant suspicious finding. LEFT BREAST: No significant suspicious finding. RECOMMENDATIONS: ROUTINE MAMMOGRAM AND CLINICAL EVALUATION IN 12 MONTHS. Dictated by: George Bernabe DO on 06/01/2025 at 15:27 Approved by: George Bernabe DO on 06/01/2025 at 15:27
--- OUTSIDE RECORDS SUMMARY | 2025-06-01 12:43 | XMS_ITS | Clinical Summary ---
Author Organization [facility] tem Address [id number] [place] [address] Care Team Providers Care Wine Pasteurizer Name Role Phone Kyle Almendarez MD Primary Care Provider [phone] Allergies Active AllergyReactionsCriticalityNoted DateCommentsPropoxyphene N-Acetaminophen 02/04/20172670Zaauchsirbzc56/14/8970Tlrtzjzmzs24/26/2017 Medications MedicationSigDispense QuantityRefillsLast FilledStart DateEnd DateStatus meloxicam (MOBIC) 7.5 mg tablet 01/20/2017Active omeprazole (PriLOSEC) 20 mg capsule 01/11/2017Active spironolactone (ALDACTONE) 25 mg tablet 01/11/2017Active STOOL SOFTENER 100 mg capsule 01/10/2017Active CALCIUM CITRATE-VITAMIN D2 ORAL 11/05/2016Active sucralfate (CARAFATE) 1 gram tablet Take 1 tablet (1 g total) by mouth 4 (four) times a day. 120 tablet Active warfarin (COUMADIN) 2.5 mg tablet Take 2.5 mg everyday, on Saturdays take half dose04/24/2020Active aspirin 81 mg Take 81 mg by mouth once a week. Takes 81 mg twice weeklyActive glucosamine HCl/chondroitin kiran (GLUCOSAMINE-CHONDROITIN ORAL) Take 2 tablets by mouth daily.Active magnesium oxide 400 mg magnesium tablet Take by mouth.Active zinc 50 mg tablet tablet Take 50 mg by mouth daily.Active VITAMIN B COMPLEX ORAL Take by mouth.Active multivit-min/ferrous fumarate (MULTI VITAMIN ORAL) Take by mouth.Active polyethylene glycol 3350,bulk, powder by miscellaneous route.Active Active Problems No known active problems Family History Medical HistoryRelationNameCommentsCancerBrotherCancerFatherHeart diseaseFather HypertensionFatherStrokeFatherDiabetesMaternal GrandmotherHypertensionMaternal GrandmotherDiabetesMotherHeart diseaseMotherHypertensionMotherCancerSister RelationNameStatusCommentsBrotherFatherDeceasedMaternal GrandmotherMotherAlive Sister Social History Tobacco UseTypesPacks/DayYears UsedDateSmoking Tobacco: BiizfzRfttnjapnq32 Smokeless Tobacco: NeverAlcohol UseStandard Drinks/WeekCommentsNot Currently0 (1 standard drink = 0.6 oz pure alcohol)ChildcareAnswerDate RecordedChildcare Mhcvswi0912/22/2018EmploymentAnswerDate PfpzgrdsUyoqhnpueiEwtyngw99/12/2019Purpose - LifeAnswerDate RecordedPurpose and direction in arjwOhrysoj06/11/2021 CommentsUnknownSex and Gender InformationValueDate RecordedSex Assigned at Not on fileLegal UbxUzzovo36/06/2015 12:02 PM EDTGender IdentityNot on file Sexual OrientationNot on file Last Filed Vital Signs Vital SignReadingTime TakenCommentsBlood Jougqorq958/7010 10:54 AM EDT Pulse--Rysvhbxcazz96.5 ??C (97.7 ??F)05/09/2020 10:54 AM EDTRespiratory Rate-- Oxygen Saturation--Inhaled Oxygen Concentration--Luxymx74.8 kg (198 lb) 05/09/2020 10:54 AM DIZBuahzf175.4 cm (5' 5.5 )05/09/2020 10:54 AM EDTBody Mass Index32.451 10:54 AM EDT Plan of Treatment Health MaintenanceDue DateLast DoneCommentsDepression Scrzewskn92/22/1961Tobacco Lgzjfyoid32/22/1961DTaP,Tdap and Td Vaccines (1 - Tdap)1968Zoster (Shingles) Vaccine (1 of 2)1999Fall Risk Adwimjitv52/22/2014RSV ( or age 60+ yrs) (1 - 1-dose 75+ series)2024Influenza Tylcnzi4403/13/2025 Medical Devices Not on file Insurance Care Teams Team MemberRelationshipSpecialtyStart DateEnd Date Klye Almendarez MD [address] [facility] [address] [place] [id number] PCP - GeneralInternal Zvaaclkr00/14/20
--- OUTSIDE RECORDS SUMMARY | 2025-06-01 12:43 | XMS_ITS | Clinical Summary ---
Author Organization [facility] Address [address] [place] [address] Care Team Providers Care Hide Cleaner Name Role Phone Kyle Almendarez MD Unavailable [phone] Kyle Almendarez MD Primary Care Provider [phone] Alesia Zhu LPN Unavailable Allergies Active AllergyReactionsCriticalityNoted DateCommentsAcetaminophenHallucinations 06/22/20239403SjavocrhnwydHixuhgk76/21/2023 Other Reaction(s): Other DxfyrlfuhffbGlhlala44/16/2335CwxmpxmbhkQsnhs93/20/2023MorphineNausea Only 11/25/20225712CweecMerwcjqcvpqsmiUfbfwq61/21/2013 Other Reaction(s): Hallucination Other Reaction(s): Other: See Comments Osppfqvdoqwa53/16/2023 Other Reaction(s): hallucinations Lvtdtwqslh94/16/2023 Other Reaction(s): confusion Tapentadol Hcl11/25/2022 Other Reaction(s): confusion Medications MedicationSigDispense QuantityRefillsLast FilledStart DateEnd DateStatus Glucosamine-Chondroitin (GLUCOSAMINE CHONDR COMPLEX PO) 1 (one) time each day.Active Magnesium 400 MG capsule Take 400 mg by mouth 1 (one) time each day.Active cholecalciferol (Vitamin D-3) 25 MCG (1000 UT) capsule Take 1,000 Units by mouth in the morning.Active zinc 50 MG tablet Take 1 capsule by mouth 1 (one) time each day.Active aspirin 81 MG EC tablet Take 81 mg by mouth. 2 times a weekActive biotin 10 MG tablet Take 10 mg by mouth 1 (one) time each day.Active calcium carbonate 1500 (600 Ca) MG tablet Take 600 mg by mouth in the morning.Active polyethylene glycol, PEG, 3350 (MiraLax) 17 GM/SCOOP powder Take 17 g by mouth in the morning.Active Vit-Fe Fumarate-FA ( Vitamin) 27-0.8 MG tablet 1 (one) time each day at the same time.Active warfarin (Coumadin) 1 MG tablet Take 1 mg by mouth in the evening.Active amoxicillin (Amoxil) 500 MG capsule Indications:Ganglion cyst of right footTo take 4 pills by mouth 1 hour prior to procedure and for pills postprocedure by mouth 8 capsule ctive metroNIDAZOLE (Metrogel) 1 % gel Indications:RosaceaApply topically Daily 60 g ctive furosemide (Lasix) 20 MG tablet Take 20 mg by mouth Daily as needed (Leg Swelling)02/06/2024ctive albuterol HFA 90 mcg/act inhaler Inhale 2 puffs every 4 (four) hours if needed for shortness of jcifss7309/02/2024 Active gabapentin (Neurontin) 300 MG capsule Indications:Spinal stenosis of lumbar region with neurogenic claudicationTAKE 1 CAPSULE BY MOUTH IN THE MORNING, then ONE CAPSULE BY MOUTH at noon, then ONE CAPSULE BY MOUTH IN THE EVENING, then ONE CAPSULE BY MOUTH BEFORE bedtime 400 capsule 5Active predniSONE (Deltasone) 20 MG tablet Take 40 mg by mouth Daily5Active spironolactone (Aldactone) 25 MG tablet Indications:Benign essential hypertensionTAKE 1 TABLET BY MOUTH IN THE MORNING 100 tablet 5Active omeprazole (PriLOSEC) [address] capsule Indications:Lewis's esophagus without dysplasiaTAKE 1 CAPSULE BY MOUTH IN THE MORNING 100 capsule 5Active warfarin (Coumadin) 2.5 MG tablet Indications:Paroxysmal atrial fibrillation (HCC)TAKE 1 TABLET BY MOUTH AT BEDTIME 100 tablet 5Active propranolol (Inderal) 10 MG tablet Indications:Benign essential hypertension,Paroxysmal atrial fibrillation (HCC) Take 1 tablet (10 mg) by mouth Daily 90 tablet 5003/14/2026ctive Active Problems ProblemNoted DateDiagnosed DateLumbar back pain with radiculopathy affecting right lower iidqwrllg05/09/2025Tinnitus of both ears07/26/2024Former cigarette hdefjr4103/28/2024t high risk for falls03/28/20249494Neohqkw15/14/2024GERD (gastroesophageal reflux disease)11/11/20235910Jmfjtfeoqsp02/01/2024Knee pain 11/11/2023Low serum vvgzqohrmm34/01/2024ostoperative pain11/11/2023ight leg pssaxhbt39/01/2024Sleep apnea with use of continuous positive airway pressure (CPAP)11/11/2023Status post lumbar spine /01/2024Tachycardia 11/11/20239304Wvndfy26/12/6809Atpuyaibljqbtt08/24/2023arrett's esophagus without umnenzfld65/16/2023enign essential uxgmemxkyvym04/16/2023ontracture, right ankle11/25/2022ependence on other enabling machines and nxhsozz6411/25/2022Edema of right lower rvijrcmtd95/16/2023History of left hip /16/2023IGT (impaired glucose tolerance)11/25/2022yphoscoliosis and cewjorcuv62/16/2023 Mixed sxldzepomehkai92/16/2023ervical spondylosis with /16/2023 Osteoarthritis of cervical spine11/25/2022Osteoarthritis of knee11/25/2022Other primary ovarian fgiwqdu7511/25/2022aroxysmal atrial yyttqexrssft98/16/2023odagra 11/25/2022rimary osteoarthritis involving multiple hurdyf7711/25/2022rimary osteoarthritis of left hip11/25/2022Reactive jfraylghjv11/16/2023Irritable bowel syndrome with dsgvhitelnob38/16/2023Slow transit gxscekbtrcql04/16/2023Spasm of thoracic back stgcdr4711/25/2022Spinal stenosis of lumbar region with neurogenic wgvajvddwjzx67/16/2023Stage 3b chronic kidney icofrkw6011/25/2022Thoracic /16/2023eripheral vascular bulesdn0004/04/2020 Resolved Problems ProblemNoted DateDiagnosed DateResolved DateAcute shoulder pain11/11/2023 5Chest painontusion of head/2025 Fall/Postoperative idncuf48/Right flank pain /2773Jogjb71/06/20240157Appqaswwt87/16/202303/AD (peripheral artery disease)/ Encounters DateTypeDepartmentCare DmxdTqawtyfjmmf75/23/2025bstract [facility] [place] [facility] [address] [facility] [address] [place] [address] Rosalva Rust PA 05/01/2025Patient Outreach [facility] [address] [place] [address] Alesia Zhu LPN 04/20/2025[facility]phone [facility] [address] [facility] [address] [place] [address] Kyle Almendarez MD 04/11/2025bstract [facility] [facility] [address] [facility] [address] [place] [address] Kyle Almendarez MD 04/05/2025bstract [facility] [address] [facility] [address] [place] [address] Kyle Almendarez MD 03/14/2025[facility] [address] [facility] [address] [place] [address] Antionette Pérez, RUBBER AND POUNDER Benign essential hypertension ; Paroxysmal atrial fibrillation (HCC)from Last 3 Months Immunizations ImmunizationAdministration DatesNext DueInfluenza, High-dose Seasonal, Quadrivalent, Preservative Free04/11/2020,04/14/2017Pneumococcal Polysaccharide MYYD3835 Family History Medical HistoryRelationNameCommentsCancerFatherHypertensionMotherCancerSibling imiHfvrxkJtatbjjiNvykWwzelfPepzzfdtJrtgerkj9WrjwgzNptnmdhbGvkjokMxsvflxxHivsyke AliveSisterx3 Social History Tobacco UseTypesPacks/DayYears UsedDateSmoking Tobacco: FormerCigarettesPassive Smoke Exposure: PastSmokeless Tobacco: Never Tobacco Cessation:Counseling Given: Not Answered Alcohol UseStandard Drinks/WeekCommentsNever0 (1 standard drink = 0.6 oz pure alcohol)B1300 Health LiteracyAnswerDate RecordedHow often do you need to have someone help you when you read instructions, pamphlets, or other written material from your doctor or pharmacy?Gymony1107/01/2024Humiliation, Afraid, Rape, and Kick questionnaireAnswerDate RecordedWithin the last year, have you been afraid of your partner or ex-partner?No04/06/2023Within the last year, have you been humiliated or emotionally abused in other ways by your partner or ex-partner?No04/06/2023Within the last year, have you been kicked, hit, slapped, or otherwise physically hurt by your partner or ex-partner?No04/06/2023Within the last year, have you been raped or forced to have any kind of sexual activity by your partner or ex-partner?No04/06/2023Social Connection and Isolation Panel AnswerDate RecordedIn a typical week, how many times do you talk on the phone with family, friends, or neighbors?More than three times a week04/06/2023How often do you get together with friends or relatives?More than three times a week 04/06/2023How often do you attend buddhism or faith services?More than 4 times per year04/06/2023o you belong to any clubs or organizations such as buddhism groups, unions, fraternal or athletic groups, or school groups?Yes04/06/2023How often do you attend meetings of the clubs or organizations you belong to?More than 4 times per year04/06/2023re you , , , , never , or living with a partner?Xvenlxj1804/06/2023UDIT-CAnswerDate RecordedQ1: How often do you have a drink containing alcohol?Never04/06/2023Q2: How many drinks containing alcohol do you have on a typical day when you are drinking?Patient does not drink04/06/2023Q3: How often do you have six or more drinks on one occasion?Never04/06/2023Overall Financial Resource Strain (CARDIA) AnswerDate RecordedHow hard is it for you to pay for the very basics like food, housing, medical care, and heating?Not hard at all04/06/2023HQ-2AnswerDate RecordedPatient Health Questionnaire-2 Pl[place]162Fin[facility] [place] of Occupational Health - Occupational Stress QuestionnaireAnswerDate RecordedDo you feel stress - tense, restless, nervous, or anxious, or unable to sleep at night because yourmind is troubled all the time - these days?Not at all04/06/2023 Exercise Vital SignAnswerDate RecordedOn average, how many days per week do you engage in moderate to strenuous exercise (like a brisk walk)?3 days04/06/2023On average, how many minutes do you engage in exercise at this level?30 min 04/06/2023Hunger Vital SignAnswerDate RecordedWithin the past 12 months, you worried that your food would run out before you got the money to buymore.Never true04/06/2023Within the past 12 months, the food you bought just didn't last and you didn't have money to get more.Never true04/06/2023RAPARE - TransportationAnswerDate RecordedIn the past 12 months, has lack of transportation kept you from medical appointments or from getting medications?No 04/06/2023In the past 12 months, has lack of transportation kept you from meetings, work, or from getting things needed for daily living?No04/06/2023 Housing Stability Vital SignAnswerDate RecordedIn the last 12 months, was there a time when you were not able to pay the mortgage or rent on time?No04/06/2023In the last 12 months, how many places have you lived?In the last 12 months, was there a time when you did not have a steady place to sleep or slept in ashelter (including now)?No04/06/2023CommentsUnknownSex and Gender InformationValueDate RecordedSex Assigned at BirthNot on fileLegal SexFemale 09/24/2022 7:34 PM EDTGender IdentityNot on fileSexual OrientationNot on file Last Filed Vital Signs Vital SignReadingTime TakenCommentsBlood Nkrlsufk287/62001/26/2025 1:23 PM EDT Nrkiy2197/17/2025 1:23 PM OYMKgmmainznqt85.8 ??C (98.2 ??F)01/26/2025 1:23 PM EDTRespiratory Zsqy913201/18/2025 11:00 AM EDTOxygen Lkitnoyxpe30%01/26/2025 1:23 PM EDTInhaled Oxygen Concentration--Nwdebi37.4 kg (164 lb)01/26/2025 1:23 PM EDT Pjpjpv358.1 cm (5' 5 )01/26/2025 1:23 PM EDTBody Mass Index27.29001/26/2025 1:23 PM EDT Plan of Treatment Health MaintenanceDue DateLast DoneCommentsCT Ykaomkfldiia1949FIT-DNA 1950FIT1950FOBT1950 8459Ytiihkzqwcphk1949COVID-19 Vaccine ( season)2025Medicare Annual Wellness (AWV)6009/07/2024, 09/22/2023, 08/20/20221134Ootkyioyahv04/27/09949909/08/2024, 09/08/2024, 07/21/2022, Additional history existsColorectal Cancer Aduhgboul86/27/2035Pneumococcal Vaccine: 65+ EnytvBvmvmqrjxggb45/23/2017Influenza MroblauHixxlaoriflq51/30/2020, 04/14/20173640BswoqyokrOpcfwnpubtrm37/20/2024, 05/28/2023, 05/27/2023, Additional history exists Procedures Procedure NamePriorityDate/TimeAssociated DiagnosisCommentsMM TOMOSYNTHESIS SCREENING BI06/01/2024 8:21 AM EST KOBOZUPSZVXIayzccl09/09/2023 12:00 PM EST Lewis's esophagus without dysplasia Slow transit constipation Family history of malignant neoplasm of digestive organs Change in bowel habit Melena from Last 3 Months or Most Recently Relevant to Health Maintenance Results * MM TOMOSYNTHESIS SCREENING BI (06/01/2024 8:21 AM EST)Anatomical Region LateralityModalityOtherSpecimen (Source)Anatomical Location / Laterality Collection Method / VolumeCollection TimeReceived Time06/01/2024 8:21 AM EST Narrative 06/01/2024 8:22 AM EST [facility] ?[address] ? [place] [address] ? Mammography Report ? Signed ? Patient: Afshin Castle L ? MR#: [id number] ?? : 1950 ?Acct:[id number] ?? Age/Sex: 73 / F ?ADM Date: 05/31/24 ?? Loc: MAMMO ? Attending Dr: KYLE ALMENDAREZ ? Ordering Physician: KYLE ALMENDAREZ ? Results: ? Date of Service: 05/31/24 ?Follow Up: ? Procedure(s): MM tomosynthesis screening BI ?? Accession Number(s): [id number] ? cc: KYLE ALMENDAREZ ? Patient Name: ? AFSHIN CASTLE ? MR#: [id number] ? : 1950 ? Exam Date: 05/31/2024 ?? Ordering Doctor: DR KYLE ALMENDAREZ M.D. ? RADIOLOGY REPORT ? PROCEDURE: ? MM TOMOSYNTHESIS SCREENING BI ? COMPARISON: ? MM TOMOSYNTHESIS SCREENING BI, 05/27/2023. ??MG MAMM SCREEN 3D ?? АННА CAD, 05/26/2022. ? INDICATIONS: ? Screening ? Calculator Name ? NCI Breast Cancer Risk Assessment Tool ?? 5 Year Breast Cancer Risk ? n/a% ?? Lifetime Breast Cancer Risk ? n/a% ?? Personal Breast Cancer ?Yes, Left breast cancer 2001 ?? Personal Ovarian Cancer ? No ?? Treatments ? Pt. had анна breast reduction surgery in 2001. ??Lt breast cancer ?? found in excised tissue ?? Family Cancers ? Aunt-maternal with breast cancer at age ??70; ?? Aunt-maternal with breast cancer at age ??70; Aunt-maternal with breast ?? cancer at age ??70; Father with lung, prostate, colon cancer at age ??75; ?? Sister with colon cancer at age 51; Brother with lung cancer at age 64; ?? Grandmother-maternal with lung cancer at age ??80; Uncle-maternal with colon ?? cancer at age ??70. ? LOCATION: ? [facility] ? BREAST COMPOSITION: ? There are scattered areas of fibroglandular density. ? FINDINGS: ? DIAGNOSTIC CATEGORY 2--BENIGN FINDING. NO CHANGE FROM COMPARISON. ? Scattered benign-appearing nodules are present. ??Scattered benign-appearing ?? calcifications are present. ??Scattered benign-appearing lymph nodes are ?? present. ? RIGHT BREAST: ??No significant suspicious finding. ??Stable micro clip marker ?? upper outer quadrant, posterior breast ? LEFT BREAST: ??No significant suspicious finding. ??Stable micro clip marker ?? upper outer quadrant, mid breast ? RECOMMENDATIONS: ? ROUTINE MAMMOGRAM AND CLINICAL EVALUATION IN 12 MONTHS. ? PLEASE NOTE: ??A NORMAL MAMMOGRAM DOES NOT EXCLUDE THE POSSIBILITY OF BREAST ?? CANCER. ??A CLINICALLY SUSPICIOUS PALPABLE LUMP SHOULD BE BIOPSIED. ? Dictated by: Angel Fernández MD on 06/01/2024 at 08:20 ? Approved by: Angel Fernández MD on 06/01/2024 at 08:21 ? Dictated By: ?Angel Fernández M.D. ? Signed By: ?06/01/24821 ? DD/ 0 ? TD/TT: ? Color Receiver: Procedure Note Radiology, Radiologist, MD - 06/01/2024 [place] [address] Mammography Report Signed Patient: Afshin Castle LMR#: [id number] : 9Acct:[id number] Age/Sex: 73 / FADM Date: 05/31/24 Loc: MAMMO Attending Dr: KYLE ALMENDAREZ Ordering Physician: KYLE ALMENDAREZResults: Date of Service: 05/31/24Follow Up: Procedure(s): MM tomosynthesis screening BI Accession Number(s): [id number] cc: KYLE ALMENDAREZ Patient Name: AFSHIN CASTLE MR#: [id number] : 1950 Exam Date: 05/31/2024 Ordering Doctor: DR KYLE ALMENDAREZ M.D. RADIOLOGY REPORT PROCEDURE: MM TOMOSYNTHESIS SCREENING BI COMPARISON: MM TOMOSYNTHESIS SCREENING BI, 05/27/2023. MG MAMM REVYSN3U АННА CAD, 05/26/2022. INDICATIONS: Screening Calculator Name NCI Breast Cancer Risk Assessment Tool 5 Year Breast Cancer Risk n/a% Lifetime Breast Cancer Risk n/a% Personal Breast Cancer Yes, Left breast cancer 2001 Personal Ovarian Cancer No Treatments Pt. had анна breast reduction surgery in 2001. Lt breastcancer found in excised tissue Family Cancers Aunt-maternal with breast cancer at age 70; Aunt-maternal with breast cancer at age 70; Aunt-maternal with breast cancer at age 70; Father with lung, prostate, colon cancer at age 75; Sister with colon cancer at age 51; Brother with lung cancer at age 64; Grandmother-maternal with lung cancer at age 80; Uncle-maternal withcolon cancer at age 70. LOCATION: [facility] BREAST COMPOSITION: There are scattered areas of fibroglandulardensity. FINDINGS: DIAGNOSTIC CATEGORY 2--BENIGN FINDING. NO CHANGE FROM COMPARISON. Scattered benign-appearing nodules are present. Scatteredbenign-appearing calcifications are present. Scattered benign-appearing lymph nodes are present. RIGHT BREAST: No significant suspicious finding. Stable micro clipmarker upper outer quadrant, posterior breast LEFT BREAST: No significant suspicious finding. Stable micro clip marker upper outer quadrant, mid breast RECOMMENDATIONS: ROUTINE MAMMOGRAM AND CLINICAL EVALUATION IN 12 MONTHS. PLEASE NOTE: A NORMAL MAMMOGRAM DOES NOT EXCLUDE THE POSSIBILITY OFBREAST CANCER. A CLINICALLY SUSPICIOUS PALPABLE LUMP SHOULD BE BIOPSIED. Dictated by: Angel Fernández MD on 06/01/2024 at 08:20 Approved by: Angel Fernández MD on 06/01/2024 at 08:21 Dictated By: Angel Fernández M.D. Signed By:06/01/24821 DD/ 0 TD/TT: Color Receiver: Authorizing ProviderResult TypeResult StatusDacandy Almendarez MDCLINISYNC IMAGING Final Result * Colonoscopy (07/21/2022 12:00 PM EST)Anatomical RegionLateralityModality EndoscopySpecimen (Source)Anatomical Location / LateralityCollection Method / VolumeCollection TimeReceived Time07/21/2022 12:00 PM EST Narrative 07/21/2022 12:00 PM EST PERFORMED AT [facility] LOCATION:[id number] Procedure Note CONVERSION, GENERIC - 11/26/2022 PERFORMED AT [facility] LOCATION:[id number] Authorizing ProviderResult TypeResult StatusPacandelaria Atkinson DOENDOSCOPY PROCEDURE ORDERABLESFinal Result from Last 3 Months or Most Recently Relevant to Health Maintenance Insurance Care Teams Team MemberRelationshipSpecialtyStart DateEnd Date Kyle Almendarez MD [address] [facility] [address] [place], [place] [id number] PCP - Devoted07/13/22 Kyle Almendarez MD [address] [address] [facility] - [facility]11/24/22 Alesia Zhu LPN [address] [address] 09/30/24
--- OUTSIDE RECORDS SUMMARY | 2025-06-01 12:44 | XMS_ITS | Clinical Summary ---
Author Organization [facility] Address [facility] [place] [address] Care Team Providers Care Ferryboat Pilot Name Role Phone Katrina Escamilla MD Primary Care Provider Erickson GIBBS MD, Kyle Jeffery Unavailable [phone] Allergies Active AllergyReactionsCriticalityNoted DateCommentsIndomethacinOther: See Peprkamz73/18/2018Propoxyphene N-AcetaminophenOther: See CommentsMedium 05/02/2013TapentadolOther: See OahjxtppEqk02/26/2017 Medications MedicationSigDispense QuantityRefillsLast FilledStart DateEnd DateStatus omeprazole (PRILOSEC) 20 mg capsule Take 20 mg by mouth once daily.Active warfarin sodium (WARFARIN ORAL) Take by mouth.Active gluc kiran/chondro kiran A/vit C/Mn (GLUCOSAMINE-CHONDROITIN COMPLX ORAL) Take by mouth.Active calcium carbonate (CALCIUM 600 ORAL) Take by mouth.Active magnesium oxide 400 mg magnesium tab Take by mouth.Active Zinc 50 mg tab Take by mouth.Active vit no.124/iron/folic ( VITAMIN ORAL) Take by mouth.Active GABAPENTIN ORAL Take by mouth.Active furosemide (LASIX) 20 mg tablet Take 20 mg by mouth once daily.Active aspirin, enteric coated (ASPIRIN, ENTERIC COATED) 81 mg EC tablet Take 81 mg by mouth as needed. 2 per weekActive vitamin b complex capsule Take 1 capsule by mouth once daily.Active polyethylene glycol 3350 (MIRALAX) 17 gram/dose powder Take by mouth once daily. Dissolve dose in 4 - 8 ounces of liquid and take as directed.Active Active Problems No known active problems Social History Tobacco UseTypesPacks/DayYears UsedDateSmoking Tobacco: FormerSmokeless Tobacco: NeverCommentsNoSex and Gender InformationValueDate RecordedSex Assigned at BirthNot on fileLegal UmrLljlrk19/02/2012 8:59 AM ESTGender IdentityNot on fileSexual OrientationNot on file Last Filed Vital Signs Vital SignReadingTime TakenCommentsBlood Ovhlnncs944/7204/12/2021 4:33 PM EDT Ozwtk3271/12/2021 4:33 PM EDTTemperature--Respiratory Rate--Oxygen Saturation-- Inhaled Oxygen Concentration--Weight--Height--Body Mass Index-- Plan of Treatment Health MaintenanceDue DateLast DoneCommentsAnxiety Dvrfwmaqs78/22/1967Depression Rcvfbyyys43/22/1967Hepatitis C Qutzdqetq02/22/1967DTaP,Tdap,Td Vaccine (1 - Tdap)1968CT Sqzypsmaxdsy42/22/1994Cologuard (FIT-DNA)1994Colonoscopy 1994Colorectal Cancer Vfsoawgdf91/22/1994Diabetes Nkbuznhou57/22/1994Fecal Occult Blood1994Lipid Czglemxql00/22/2565Ilrfcwiutbito74/22/1994Shingrix Vaccine (1 of 2)1999Bone Density Gzbhhusnc64/22/2014Pneumococcal Vaccine: 50+ (2 of 2 - PCV)RSV Vaccine (1 - 1-dose 75+ series) 2024dvance Directive Qmbclzvlaz52/01/2025ovid-19 Vaccine (1 - 2024- season)2025Influenza Vaccine (#1)/, 03/13/2018, 06/04/2017, Additional history exists Insurance Care Teams Team MemberRelationshipSpecialtyStart DateEnd Date Katrina Escamilla MD [address] [place] [address] PCP - GeneralFamily Jaumuhmu35/7/14 Kyle Almendarez II, MD [address] [address] ReferringInternal Zhfqlczx92/11/21
--- OUTSIDE RECORDS SUMMARY | 2025-06-01 12:45 | XMS_ITS | CCD ---
Author Organization [facility] Care Team Providers Care Chief School Finance Officer Name Role Phone ANDRZEJ MARINELLI Unavailable Unavailable ANDRZEJ MARINELLI Unavailable Unavailable CORINNA DAVIS Unavailable Unavailable ANDRZEJ MARINELLI Unavailable Unavailable CORINNA DAVIS Unavailable Unavailable Unavailable Unavailable Corinna Davis MD Primary Care Provider [phone] Kyle Almendarez II Unavailable Bandar Bales Unavailable Adrienne Mas Unavailable Loli Pineda Unavailable Ke Ellington Unavailable BERNIE Almendarez Primary Care Provider [phone] DO Ari Atkinson Attending Provider [phone] KYLE ALMENDAREZ Primary Care Physician Kyle Almendarez II Primary Care Unavail able Kyle Almendarez II Primary Care Unavail able Sharif GIBBS, Dr. Danish Pierre Attending Unavailable Sharif GIBBS, Dr. Danish Pierre Referring Unavailable FAWWAD, YOUNG H Attending Unavailable FAWWAD, YOUNG H Admitting Unavailable DR KYLE ALMENDAREZ Primary Care Unavailable DR KYLE ALMENDAREZ Primary Care Unavailable FAWWAD, YOUNG H Attending Unavailable FAWWAD, YOUNG H Admitting Unavailable FAWWAD, YOUNG H Admitting Unavailable FAWWAD, YONUG H Attending Unavailable DR KYLE ALMENDAREZ Primary [...] Provider MD Demetrio Devine II Attending Provider THA Gonzalez Attending Provider Farnaz Gonzalez Unavailable Kyle Almendarez MD Primary Care Provider [phone] BERNIE Almendarez Primary Care Provider [phone] MD Demetrio Devine II Attending Provider MD Eriberto Davis Attending Provider MD Quita Hall Attending Provider [phone] Kyle Almendarez MD Unavailable Kyle Almendarez MD Primary Care Provider DANISH OLGUIN Referring Unavailable KYLE ALMENDAREZ Primary Care Unavailable ANDRZEJ MARINELLI Referring Unavailable KYLE ALMENDAREZ Primary Care Unavailable QUITA HALL Attending Unavailable KYLE ALMENDAREZ Primary Care Unavailable ANDRZEJ MARINELLI Referring Unavailable Kelvin WILSON, Jenae Unavailable [phone] Ericskon GIBBS, Kyle Primary Care Provider [phone] Ly Apryl LOPEZ Attending Provider Erickson GIBBS, Kyle Primary Care Provider Ly DO, Apryl Thrasher Attending Provider Miriam WISE Marcos Emergency Provider Zhu SCIENTIFIC PROGRAMMER ANALYST, Alesia Unavailable HEMMERROSALVA M Attending Unavailable HEMMER, ROSALVA M Attending Unavailable HEMMER, ROSALVA M Attending Unavailable HEMMER, ROSALVA M Attending Unavailable HEMMER, ROSALVA M Attending Unavailable HEMMER, ROSALVA M Attending Unavailable HEMMER, ROSALVA M Attending Unavailable HEMMER, ROSALVA M Attending Unavailable Kyle Almendarez II Primary Care Provider Miriam WISE Marcos Emergency Provider Cinthia Xie APRN Attending Provider Kyle Almendarez II Referring Provider Nuno Yañez MD Attending Provider Kyle Almendarez II Primary Care Provider Nuno Yañez MD Other Provider [phone] Elicia Lam MD Attending Provider [phone] Elicia Lam MD Referring Provider Tennille Patricia APRN Attending Provider Cinthia Xie Attending Unavailable Anne-Marie, Cinthia Admitting Unavailable Kyle Almendarez Primary Care Unavailable Otilio, Nuno Burgess Attending Jeanievajyoti labbrady Spiceromia, Nuno Burgess Admitting Unavai Kyle Long Primary Care Unavailable Elicia Lam Referring Unavailable Koromia, Nuno Burgess Attending Unavai lable Koromia, Nuno Burgess Admitting UnaKyle Ritchie Primary Care Unavailable Kyle Almendarez Primary Care Unavailable Ly, Apryl L Attending Unavailable Ly, Apryl L Admitting Unavailable Kyle Almendarez Primary Care Unavailable Gil Pinedaothy Attending Unavailable Marcos Pineda Admitting Unavailable Kelvin WILSON, Jenae Unavailable [phone] Allergies Allergy ClassificationReported Allergen(s)Allergy TypeDate of OnsetReaction(s) Facility (15 sources)Acetaminophen / Propoxyphene; Translations: [Darvocet A500]Drug AllergyHallucAdventHealth [facility] Other (5 sources)Indomethacin; Translations: [Indocin CAPS]Drug AllergyHallucDonna [place] [address] DO Work Phone: (20 sources)tapentadol; Translations: [Nucynta TABS]Drug Ijxtosh17-98-5784Jkqvu: See Comments, HallucinationsPort [facility] (20 sources)Indomethacin; Translations: [indomethacin]Drug Whnpeqv99-74-6795 Other: See Comments, Hallucinations, UnknownFostoria City Hospitalveland Clinic (5 sources)Propoxyphene N-Acetaminophen; Translations: [PROPOXYPHENE N-ACETAMINOPHEN]Drug Yzahtor03-03-2976Qdtol: See Comments, Hallucinations [facility] (10 sources)IndomethacinDrug Allergyhallakeside women's hospital – oklahoma cityGiftLauncherSkagit Valley Hospital [facility] Other (15 sources)Darvocet-N 100; Translations: [acetaminophen / propoxyphene]Drug yyygnfl38-78-2601Fodzjrm, HallucinationPremier Health [facility] (20 sources)Lisinopril; Translations: [lisinopril]Drug Ojgoiaz45-33-8623DxatcSelect Medical [facility] (20 sources)PropoxypheneDrug Cbcwlsp01-77-0281Skxfuirhcvfkq, Hallucinating, hallucinationsVeterans Health Administration (20 sources)tapentadol; Translations: [TAPENTADOL]Drug Ezqdpcd54-95-4456 Confusion, Confusion, hallucinationsVeterans Health AdministrationComment on above:confused/hallucinations after hip replacement surgery (20 sources)Escitalopram; Translations: [escitalopram]Drug Qtlezjv40-01-1357 Unknown (qualifier value), UnknownPremier Health Upper [facility] (1 source)MorphineDrug Qladxtr90-61-5535Mxw [facility] (2 sources)Procyclidine; Translations: [Indocin]Drug AllergyThe [facility] (2 sources)tapentadol; Translations: [Nucynta]Drug Horfjbc88-44-1879Cuq [facility] (4 sources)Escitalopram; Translations: [ESCITALOPRAM OXALATE]Drug Allergy 41-81-4332GyjegYhkhdyjzcqAshtabula County Medical Center (20 sources)Acetaminophen; Translations: [acetaminophen]Drug Dqszqsg56-71-0910 HallucinationsVeterans Health Administration (20 sources)MorphineDrug Aggyqql91-73-8037Fvgzge OnlySaint Joseph Health Center (20 sources)tapentadolDrug Fzbhnjh36-85-3067UJPG [facility] (20 sources)OtherPropensity to adverse fngkcimzc42-05-7673YgokkkttfrzuqpJOMF Healthcare (1 source)EscitalopramDrug Msmlagg70-44-4877XfjvpujdkVeterans Health Administration Repository (1 source)IndomethacinDrug Uunjhgo85-43-2795KsuzkoojsVeterans Health Administration Repository Medications Current Medications MedicationDrug Class(es)DatesSig (Normalized)Sig (Original)[id number] 200 actuat albuterol 0.09 mg/actuat metered dose inhaler (20 sources)beta2-Adrenergic AgonistStart: 41-38-8341usog 2 puff(s) by inhalation every four hoursalbuterol HFA 90 mcg/act inhaler Inhale 2 puffs every 4 (four) hours if needed for shortness of breath 09/02/2024 ActiveStart: 75-88-8632bdko 1 puff(s) by inhalation every four to six hours as needed for wheezingAlbuterol Sulfate 90 mcg/actuation HFA aerosol inhaler Active 2 PUFF INHALATION EVERY 4-6 HOURS as needed for shortness of breath or wheezing 8.5 September 02, 2024 1:00am Complies with drug therapyStart: 53-80-9380twel 2 puff(s) by inhalation four times daily as neededAlbuterol Sulfate HFA 108 (90 Base) MCG/ACT 2 puffs Inhalation qid prn Please provide spacer May, ActiveStart: 12-42-4876xpjx 2 puff(s) by inhalation four times daily as needed Albuterol Sulfate HFA 108 (90 Base) MCG/ACT 2 puffs Inhalation qid prn Please provide spacer May, Activeamoxicillin 500 mg oral capsule (20 sources)Penicillin-class AntibacterialStart: 68-07-4810rnhf 4 capsules by mouth every houramoxicillin (Amoxil) 500 MG capsule Indications: Ganglion cyst of right foot To take 4 pills by mouth 1 hour prior to procedure and for pills postprocedure by mouth 8 capsule 2 09/21/2023 ActiveStart: 44-27-8805gylh 1 tablet by mouth every twelve hoursAmoxicillin 875 MG 1 capsule Orally every 12 hours for 7 days Apr, Not-Taking/PRNaspirin 81 mg chewable tablet (20 sources)Platelet Aggregation Inhibitor, Nonsteroidal Anti-inflammatory Drug Start: 01-34-3353rprllyl 81 mg Chew Tab 81 mg = 1 tab(s), Chewed, Daily, Refills(s) 0, Prophylaxis Start Date: 09/22/22 Status: OrderedStart: 02-27-2018 End: 56-77-1051Cswbeyd 81 mg Tablet,Delayed Release (Dr/Ec) Discontinued 81 MG PO TuFr@0900 September 0611:00am July 21, 2022 7:40amStart: 01-10-2018 End: 56-07-5425lqcj 1 tablet by mouth once dailyAspirin 81 mg tablet,delayed release (DR/EC) Discontinued 81 MG PO Daily January 10, 2018 12:00am February 27, 2018 6:37pmAspirin EC 81 MG TBEC 2 per week Quantity: 24 Refills: 3 Ordered: 10-Jun-2022 Danish Olguin MD Activetake 1 tablet by mouth every week Aspirin EC 81 MG Oral Tablet Delayed Release TAKE TABLET Weekly Quantity: 90 Refills: 0 Ordered: 09-Sep-2021 Danish Olguin MD ActiveComment on above:Take 81 mg by mouth as needed. 2 per weekbiotin 10 mg oral tablet (20 sources)take 1 tablet by mouth once dailybiotin 10 MG tablet Take 10 mg by mouth 1 (one) time each day. ActiveCalcium (12 sources)Phosphate Binder, CalciumStart: 34-92-2046yihy 1 tablet by mouth twice dailyCalcium 600+D oral tablet 1 tab(s), Oral, BID, Refill(s) 0, Prophylaxis Start Date: 09/22/22 Status:OrderedCalcium Activecalcium carbonate 1250 mg oral tablet (20 sources)Start: 26-01-0553Dwxmgbj Carbonate (Oyster Shell Calcium 500) 500 mg calcium (1,250 mg) Tablet Active 500 MG PO Every morning September 06, 2020 1:00am Complies with drug therapyStart: 02-27-2018 End: 85-19-5048zmbs 1 tablet by mouth once daily in the morningCalcium Carbonate (Calcium 600) 600 mg calcium (1,500 mg) Tablet Discontinued 600 MG PO Every morning February 27, 2018 12:00am September 07, 2020 9:58amtake 1 tablet by mouth once dailycalcium carbonate 600 mg calcium (1,500 mg) tablet Take 1 tablet (1,500 mg) by mouth once daily. Activecalcium carbonate (CALCIUM 600 ORAL) Take by mouth. 0 ActiveComment on above:Take by mouth.Cholecalciferol (20 sources)Vitamin DStart: 85-75-5247uwno 1 capsule by mouth once daily Cholecalciferol (Vitamin D3) 100 mcg (4,000 unit) Capsule Active 100 MCG PO Daily July 21:00am Complies with drug therapyStart: 76-17-5174fnqb 1 capsule by mouth once dailyStart: 07-67-9243iwgq 1 capsule by mouth once daily Cholecalciferol (Vitamin D3) 100 mcg (4,000 unit) Capsule Active 100 MCG PO Daily July 21:00amStart: 98-89-1867qazu 1 capsule by mouth once daily Cholecalciferol (Vitamin D3) 100 mcg (4,000 unit) Capsule Active 100 MCG PO Daily July 212:00amStart: 67-04-5337Bumqignylcoqgdc (Vitamin D3) Active July 21, 2022 1:00amStart: 89-37-8113Uqmdsejeawoycyf (Vitamin D3) Active July 21, 2022 12:00amStart: 19-58-3760Skadueoorvyzeuq (Vitamin D3) Active July 21, 2022 12:00amtake 1 capsule by mouth in the morning cholecalciferol (Vitamin D-3) 25 MCG (1000 UT) capsule Take 1,000 Units by mouth in the morning. Activetake 1 capsule by mouth once dailycholecalciferol (Vitamin D-3) 25 MCG (1000 UT) capsule Take 1 capsule (25 mcg) by mouth once daily.ActiveChondroitin Sulfates / Glucosamine (20 sources)Start: 62-16-8140afrt 3 capsules by mouth once dailyGlucosamine Chondroitin 3 cap(s), Oral, Daily, Refill(s) 0, Prophylaxis Start Date: 09/22/22 Status:OrderedStart: 73-66-4064eyfn 1 capsule by mouth once daily Igzsaxfevpu-Vgtbgcxsi-Ydn C-Mn 500-400 mg Capsule Active 1 CAP PO Daily September 10, 2021 1:00am Complies with drug therapyStart: 07-30-2017 End: 28-06-0021eeuc 2 tablets by mouth once dailyGlucosamine-Chondroitin (Cosamin Ds) 500-400 mg Tablet Discontinued 2 TAB PO Daily July 30, 2017 1:00am August 23, 2020 7:42pmGlucosamine-Chondroitin (GLUCOSAMINE CHONDR COMPLEX PO) 1 (one) time each day. ActiveClassic (3 sources)Start: 28-40-6310hoxz 1 tablet by mouth once dailyClassic 1 tab(s), Oral, Daily, Refill(s) 0, Prophylaxis Start Date: 09/22/22 Status: Ordereddocusate sodium 50 mg / sennosides, penitentiary 8.6 mg oral tablet (1 source)Start: 86-71-1397oije 8.6-50 mg by mouth at bedtimeSenokot S 8.6-50 MG 2 tablets Orally at bedtime for 30 day(s) November, Activefluticasone propionate 0.05 mg/actuat metered dose nasal spray (20 sources)CorticosteroidStart: 50-58-1180affl 1 spray(s) nasal route once dailyFlonase Allergy Relief 50 MCG/ACT 1 spray in each nostril Nasally Once a day for 14 day(s) Apr, ActiveStart: 58-76-4664muzc 1 spray(s) nasal route once dailyFlonase Allergy Relief 50 MCG/ACT 1 spray in each nostril Nasally Once a day for 14 day(s) Apr, ActiveStart: 09-06-2020 End: 88-20-2740Klyjhhcwizn Propionate 50 mcg/actuation [place],Suspension Discontinued 2 SPRAY NARES-BOTH Daily 2 September 06, 2020 1:00am September 10, 2021 10:58amfurosemide 20 mg oral tablet (20 sources)Loop DiureticStart: 71-90-4872qndn 1 tablet by mouth every twenty- four hours as neededfurosemide (Lasix) 20 MG tablet Take 20 mg by mouth Daily as needed (Leg Swelling) 02/06/2024 ActiveLasix ActiveComment on above:Take 20 mg by mouth once daily.gabapentin 300 mg oral capsule (20 sources)Anti-epileptic AgentStart: 55-24-1181duel 1 capsule by mouth four times dailyGabapentin 300 mg capsule Active 300 MG PO Four times daily September 10, 2021 1:00am Complies with drug therapyStart: 85-60-0775rynnfeiiwu (Neurontin) 300 MG capsule Indications: 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 400 capsule 3 09/22/2023 ActiveGABAPENTIN ORAL Take by mouth. 0 ActiveComment on above:Take by mouth.Glucosamine (4 sources)Glucosamine QnqkoyLbbjfjcgqbh-Ydcnyuqry-Zvs C-Mn (7 sources)Start: 25-60-6424pdnz 1 capsule by mouth once daily Dagrrczlmez-Uhejusnms-Jul C-Mn Active 1 CAP PO Daily September 10, 2021 1:00am Start: 53-69-4416ozok 1 capsule by mouth once kzsrfRnakmmwelmz-Icjzqztuv-Ise C- Mn Active 1 CAP PO Daily September 10, 2021 12:72zcWqysbygmogz-Mxorhvety-Cnx C-Mn 500-400 mg Capsule (4 sources)Start: 93-76-2991rclv 1 capsule by mouth once daily Wkittlkijah-Noncvthxv-Gex C-Mn 500-400 mg Capsule Active 1 CAP PO Daily September 10, 2021 1:00amStart: 06-33-2482vksc 1 capsule by mouth once daily Hldmflmbnjs-Wcsxautyy-Nzl C-Mn 500-400 mg Capsule Active 1 CAP PO Daily September 10, 2021 12:00amglucosamine/chondr kiran A sod (glucosamine-chondroitin) 1,500- 1,200 mg/30 mL liquid (3 sources)glucosamine/chondr kiran A sod (glucosamine-chondroitin) 1,500-1,200 mg/30 mL liquid Take by mouth once daily. Activeglucosamine/chondr kiran A sod (glucosamine-chondroitin) 1,500-1,200 mg/30 mL liquid Take by mouth once daily. 0 Activehydrocortisone 10 mg/ml / neomycin 3.5 mg/ml / polymyxin b 50102 unt/ml otic solution (5 sources)Aminoglycoside Antibacterial, Polymyxin-class Antibacterial, CorticosteroidStart: 27-69-5684Knipmcqz-Polymyxin-HC 3.5-64348-5 4 drops into affected ear Otic Three times a day for 7 day(s) Apr, Activemagnesium oxide 400 mg oral tablet (20 sources)Start: 02-16-2020 End: 88-79-5959iusq 1 tablet by mouth once daily in the morningMagnesium Oxide 400 mg (241.3 mg magnesium) Tablet Active 400 MG PO Every morning August 1:00am Complies with drug therapyComment on above:Take by mouth. metroNIDAZOLE 0.01 mg/mg topical gel (20 sources)Nitroimidazole AntimicrobialStart: 69-76-6257dkuinQTKFKIQU (Metrogel) 1 % gel Indications: Rosacea Apply topically Daily 60 g 2 02/24/2024 Activemultivit-min/ferrous fumarate (MULTI VITAMIN ORAL) (3 sources)take 1 tablet by mouth once dailymultivit-min/ferrous fumarate (MULTI VITAMIN ORAL) Take 1 tablet by mouth once daily. Activetake 1 tablet by mouth once dailymultivit-min/ferrous fumarate (MULTI VITAMIN ORAL) Take 1 tablet by mouth once daily. 0 ActiveMultivitamin With Folic Acid (Thera) 400 mcg Tablet (20 sources)Start: 53-36-9135wshr 1 tablet by mouth once daily in the morning Multivitamin With Folic Acid (Thera) 400 mcg Tablet Active 1 TAB PO Every morning August 1:00am Complies with drug therapyStart: 09-06-2020 take 1 tablet by mouth once daily in the morningStart: 95-61-7534xtyp 1 tablet by mouth once daily in the morningMultivitamin With Folic Acid (Thera) 400 mcg Tablet Active 1 TAB PO Every morning August 1:00amStart: 67-59-8624chhv 1 tablet by mouth once daily in the morningMultivitamin With Folic Acid (Thera) 400 mcg Tablet Active 1 TAB PO Every morning August 12:00amStart: 08-23-2020 End: 68-76-3525wjud 1 tablet by mouth once dailyMultivitamin With Folic Acid (Thera) 400 mcg Tablet Discontinued 1 TAB PO Daily August 2311:00am August 23, 2020 7:56pmStart: 08-23-2020 End: 19-37-1592ckmh 1 tablet by mouth once dailyMultivitamin With Folic Acid (Thera) 400 mcg Tablet Discontinued 1 TAB PO Daily August 23176381:00am August 23, 2020 6:56pmmupirocin 0.02 mg/mg topical ointment (1 source)RNA Synthetase Inhibitor AntibacterialStart: 07-04-2024 End: 34-76-1784gffujrfss (Bactroban) 2 % ointment Indications: Hair follicle infection Apply topically 3 (three) times a day for 10 days 22 g 07/04/2024 07/14/2024 Activeofloxacin 3 mg/ml ophthalmic solution (2 sources)Quinolone AntimicrobialStart: 05-25-2024 End: 24-05-1750dpiiextto (Ocuflox) 0.3 % ophthalmic solution Indications: Hordeolum externum of left upper eyelid Administer 1 drop into the left eye in the morning and 1 drop at noon and 1 drop in the evening and 1 drop before bedtime. Do all this for 10 days. 10 mL 05/25/2024 06/04/2024 ActiveMiralax (20 sources)Osmotic LaxativeStart: 87-53-2350dgsm 17 g by mouth once daily MiraLax 17 gm, Oral, Daily, Refill(s) 0, Prophylaxis Start Date: 09/22/22 Status: OrderedStart: 02-07-2020 End: 20-13-6298Uqplwqxqehmy Glycol 3350 (Miralax) 17 gram Powder In Packet Active 17 GM PO Daily as needed for Constipation September 06, 2020 1:00am Complies with drug therapyMiralax 17 grams orally at hour of sleep ActiveComment on above:Take by mouth once daily. Dissolve dose in 4 - 8 ounces of liquid and take as directed. Vit-Fe Fumarate-FA ( Vitamin) 27-0.8 MG tablet (20 sources) Vit-Fe Fumarate-FA ( Vitamin) 27-0.8 MG tablet 1 (one) time each day at the same time. ActiveVitamin B Complex (7 sources)Start: 94-02-8445dzik 1 capsule by mouth once dailyVitamin B Complex Active 1 CAP PO Daily November 12, 2021 12:00amStart: 66-04-8564owyk 1 capsule by mouth once dailyVitamin B Complex Active 1 CAP PO Daily November 11, 2021 11:00pm Vitamin B Complex oral capsule (3 sources)Start: 14-50-4493lesi 1 capsule by mouth once dailyVitamin B Complex oral capsule 1 cap(s), Oral, Daily, Refill(s) 0, Prophylaxis Start Date: 09/22/22 Status: Orderedwarfarin sodium 1 mg oral tablet (20 sources)Vitamin K AntagonistStart: 64-92-0658idch 1 tablet by mouth at bedtimewarfarin (Coumadin) 2.5 MG tablet Indications: Paroxysmal atrial fibrillation (HCC) TAKE 1 TABLET BY MOUTH AT BEDTIME 100 tablet 3 12/14/2024 ActiveStart: 07-15-2022 End: 60-74-3428Cfnifvrp 1 mg tablet Discontinued MG PO September 02, 2024 1:00am February 07, 2025 10:23amStart: 09-10-2021 End: 82-74-4986Lkfeflkv 2.5 mg Tablet Discontinued 2.5 MG PO Daily September 10, 2021 1:00am September 02, 2024 11:15am 2.5 5x a week 2 days additional 1mg Start: 08-09-2020 End: 64-62-0913Syymyneq 2.5 mg Tablet Discontinued 1.25 MG PO As Directed August 09, 2020 1:00am August 9:58am On Hold: HOLD UNTIL CLEARED BY DR LOWERY Takes 1.25 mg on Saturdaystart: 08-09-2020 End: 64-84-7214Gtwqkkca Discontinued 1.25 MG PO As Directed August 09, 2020 1:00am September 07, 2020 9:58am Takes 1.25 mg on Saturdaystart: 02-16-2020 End: 53-31-4485Adiaklfd 2.5 mg tablet Discontinued 0 .ROUTE .COMPLEX February 16, 2020 12:00am August 09, 2020 11:23am On Hold: Resume on 02/21/20. takes 2.5 mg Thursday thru Thursday, 1.25mg on Saturdaystart: 01-10-2018 End: 59-37-5114Cftgkpxr 2.5 mg Tablet Discontinued 2.5 MG PO As Directed August 09, 2020 1:00am September 07, 2020 9:58am On Hold: HOLD UNTIL CLEARED BY DR LOWERY Takes 2.5 mg Thursday thru Thursdaywarfarin sodium (WARFARIN ORAL) Take by mouth. 0 ActiveWarfarin Sodium TABS TAKE 1 TABLET DAILY OR DIRECTED BY [facility] Quantity: 0 Refills: 0 Ordered: 06-Sep-2021 DO ActiveComment on above:Take by mouth.Zinc (20 sources)Start: 15-83-0897zbqb 140 mg by mouth once dailyZinc 140 mg, Oral, Daily, Refills(s) 0, Prophylaxis Start Date: 09/22/22 Status: OrderedStart: 07-30-2017 End: 71-11-9173jgsx 1 tablet by mouth once daily in the morningZinc 50 mg Tablet Discontinued 50 MG PO Every morning July 30, 2017 1:00am September 07:58amStart: 07-30-2017 End: 80-05-3028rymh 1 tablet by mouth once daily in the morningZinc 50 mg Tablet Discontinued 50 MG PO Every morning July 30, 2017 12:00am September 07, 2020 8:58amStart: 07-30-2017 End: 90-23-7956tfpw 50 mg by mouth once daily in the morningZinc Discontinued 50 MG PO Every morning July 30, 2017 1:00am September 07, 2020 9:58amStart: 07-30-2017 End: 93-40-3449eagh 50 mg by mouth once daily in the morningZinc Discontinued 50 MG PO Every morning July 30, 2017 12:00am September 07, 2020 8:58amtake 1 capsule by mouth once dailyzinc 50 MG tablet Take 1 capsule by mouth 1 (one) time each day. ActiveZinc 50 mg tab Take by mouth. 0 Activetake 1 tablet by mouth once dailyZinc 50 MG 1 tablet Orally Once a day for 30 day(s) Active Comment on above:Take by mouth.zinc gluconate 50 mg oral tablet (20 sources)Start: 91-55-7009mdbb 1 tablet by mouth once dailyZinc Gluconate 50 mg Tablet Active 50 MG PO Daily September 06, 2020 1:00am Complies with drug therapy Completed/Discontinued Medications MedicationDrug Class(es)DatesSig (Normalized)Sig (Original)acetaminophen 325 mg oral tablet (20 sources)Start: 08-23-2020 End: 72-66-6025lwro 2 tablets by mouth every four hours as needed for pain Acetaminophen 325 mg Tablet Discontinued 650 MG PO Q4H as needed for Pain September 06, 2020 1:00am September 10, 2021 10:57amStart: 08-23-2020 End: 34-95-4131fzag 650 mg by mouth every four hoursAcetaminophen Discontinued 650 MG PO Q4H 100 September 06, 2020 1:00am September 10, 2021 10:57am acetaminophen 325 mg / HYDROcodone bitartrate 5 mg oral tablet (20 sources)Opioid AgonistStart: 09-06-2020 End: 90-65-1957bvah 1 tablet by mouth every six hours as needed for pain Hydrocodone-Acetaminophen 5-325 mg Tablet Discontinued 1 TAB PO Q6H as needed for Pain 30 September 06, 2020 November 12, 2021 7:54amStart: 02-15-2020 End: 64-95-4181mitu 2 tablets by mouth every four to six hours as needed for painHydrocodone-Acetaminophen ([place]) 5-325 mg tablet Discontinued 2 TAB PO EVERY 4-6 HOURS as needed for Pain Scale 6 - 10 February 16, 2020 12:46pm August 09, 2020 11:19amacetaminophen 325 mg / oxyCODONE hydrochloride 5 mg oral tablet (6 sources)Opioid AgonistStart: 11-14-2024 End: 61-49-6759xzfc 1 tablet by mouth every eight hours as needed for pain Oxycodone-Acetaminophen (Percocet) 5-325 mg tablet Discontinued 1 TAB PO Every 8 hours as needed for pain 10 November 14, 2024 November 24, 2024 9:59amamLODIPine 10 mg oral tablet (15 sources)Dihydropyridine Calcium Channel BlockerStart: 09-06-2020 End: 36-89-3454ddkj 1 tablet by mouth once dailyAmlodipine 10 mg Tablet Discontinued 10 MG PO Daily September 06, 2020 1:00am September 10, 2021 10 :57amazithromycin 250 mg oral tablet (8 sources)Macrolide AntimicrobialStart: 02-10-4277Jcqqzeght 250 MG 2 tablet on the first day, then 1 tablet daily for 4 days Orally Once a day for 5 day(s) May, Not-Taking/PRNbaclofen 10 mg oral tablet (6 sources)gamma-Aminobutyric Acid-ergic Agonist End: 59-19-5276fsde 1 tablet by mouth once dailybaclofen (Lioresal) 10 mg tablet Take 1 tablet (10 mg) by mouth once daily. 0 07/02/2023 Discontinued (Therapy completed)calcium carbonate 1500 mg / cholecalciferol 200 unt oral capsule (15 sources)Vitamin DStart: 07-30-2017 End: 99-35-0025ukwv 1 tablet by mouth once dailyCalcium Carbonate-Vitamin D3 (Calcium 600 + D(3)) 600 mg calcium- 200 unit Capsule Discontinued 1 TAB PO Daily July 30, 2017 1:00am January 09, 2018 6:37amdiazePAM 5 mg oral tablet (20 sources)BenzodiazepineStart: 02-15-2020 End: 20-34-6596ndyg 1 tablet by mouth four times daily as needed for muscle spasmsDiazepam 5 mg tablet Discontinued 5 MG PO Four times daily as needed for Muscle Spasm July 11:23am September 07, 2020 9:58amdiclofenac sodium 75 mg delayed release oral tablet (15 sources)Nonsteroidal Anti-inflammatory DrugStart: 02-07-2020 End: 38-99-4128wcpv 1 tablet by mouth twice dailyDiclofenac Sodium 75 mg tablet,delayed release (DR/EC) Discontinued 75 MG PO Twice daily January 12:00am August 09, 2020 11:19amdilTIAZem hydrochloride 30 mg oral tablet (1 source)Calcium Channel BlockerStart: 03-23-2024 End: 55-66-0496ipeb 1 tablet by mouth twice dailydilTIAZem (Cardizem) 30 mg immediate release tablet Indications: Paroxysmal atrial fibrillation (Multi) Take 1 tablet (30 mg) by mouth 2 times a day. 180 tablet 3 03/23/2024 03/28/2024 Discontinued (Discontinued by another clinician)docusate sodium 100 mg oral capsule (20 sources)Start: 09-06-2020 End: 87-46-3581nory 1 capsule by mouth twice dailyDocusate Sodium (Dok) 100 mg Capsule Discontinued 100 MG PO Twice daily 60 September 06, 2020 1:00am September 10, 2021 10:58amStart: 07-30-2017 End: 97-91-7116jzyz 1 capsule by mouth twice dailyDocusate Sodium (Stool Softener) 100 mg Capsule Discontinued 100 MG PO Twice daily July 30, 2017 1:00am March 09, 2019 12:25pmDurolane (7 sources)Start: 25-39-9482Gzbgcsua May, 60 mgEye Promise Restore (15 sources)Start: 07-30-2017 End: 80-32-5178rsxt 1 capsule by mouth once dailyEye Promise Restore Discontinued 1 CAP PO Daily July 30, 2017 1:00am March 09, 2019 12:26pm Start: 07-30-2017 End: 65-90-8013odep 1 capsule by mouth once dailyEye Promise Restore Discontinued 1 CAP PO Daily July 30, 2017 12:00am March 09, 2019 11:26am Eye Vitamin (15 sources)Start: 03-09-2019 End: 47-69-8589fxuj 1 capsule by mouth once dailyEye Vitamin Discontinued 1 CAP PO Daily March 09, 2019 12:00am September 07, 2020 9:58amStart: 03-09-2019 End: 00-51-2378unmx 1 capsule by mouth once dailyEye Vitamin Discontinued 1 CAP PO Daily March 08, 2019 11:00pm September 07, 2020 8:58amflecainide acetate 50 mg oral tablet (15 sources)AntiarrhythmicStart: 01-10-2018 End: 71-51-3066xqqj 1 tablet by mouth twice dailyFlecainide 50 mg Tablet Discontinued 50 MG PO Twice daily 60 January 10, 2018 12:00am March 09, 2019 12:25pmgluc kiran/chondro kiran A/vit C/Mn (GLUCOSAMINE-CHONDROITIN COMPLX ORAL) (1 source)gluc kiran/chondro kiran A/vit C/Mn (GLUCOSAMINE-CHONDROITIN COMPLX ORAL) Take by mouth. 0 ActiveComment on above:Take by mouth.Glucosamine Chondr 1500 Complx Oral Capsule (5 sources)Glucosamine Chondr 1500 Complx Oral Capsule TAKE 2 CAPSULE Daily Quantity: 0 Refills: 0 Ordered: 06-Sep-2021 DO Activehyaluronate (20 sources)Start: 83-58-5370Xompeysf Mar, 2 mLStart: 23-99-1994Btbkwjof Mar, 2 mLStart: 04-67-4640Wsaotrrk Feb, 2 mLlosartan potassium 25 mg oral tablet (15 sources)Angiotensin 2 Receptor BlockerStart: 09-06-2020 End: 89-40-4267cyyr 1 tablet by mouth once daily in the morningLosartan 25 mg Tablet Discontinued 25 MG PO Every morning September 06, 2020 1:00am September 10, 2021 11:01amlubiprostone 0.024 mg oral capsule (10 sources)Chloride Channel ActivatorStart: 74-28-5222xzrg 1 capsule by mouth twice daily at mealtimeLubiprostone 24 MCG 1 capsule with food and water Orally Twice a day for 30 day(s) November, Not-Taking/PRNStart: 16-82-0125kwal 1 capsule by mouth twice daily at mealtimeLubiprostone 24 MCG 1 capsule with food and water Orally Twice a day for 30 day(s) November, Not-TakingMagnesium (20 sources)Start: 07-30-2017 End: 20-46-3169vokf 2 tablets by mouth once dailyMagnesium 200 mg Tablet Discontinued 400 MG PO Daily July 30, 2017 1:00am February 16, 2020 12:44pm Start: 07-30-2017 End: 83-89-1757yryi 2 tablets by mouth once dailyMagnesium 200 mg Tablet Discontinued 400 MG PO Daily July 30, 2017 12:00am February 16, 2020 11:44am Start: 07-30-2017 End: 87-21-0738tjtt 400 mg by mouth once dailyMagnesium Discontinued 400 MG PO Daily July 30, 2017 1:00am February 16, 2020 12:44pmStart: 07-30-2017 End: 56-09-5179qxry 400 mg by mouth once dailyMagnesium Discontinued 400 MG PO Daily July 30, 2017 12:00am February 16, 2020 11:44amtake 1 capsule by mouth once dailyMagnesium 400 MG capsule Take 400 mg by mouth 1 (one) time each day. ActiveMagnesium Activetake 1 tablet by mouth once dailyMagnesium 400 MG Oral Tablet Take 1 tablet daily Quantity: 0 Refills: 0 Ordered: 06-Sep-2021 DO Active meloxicam 7.5 mg oral tablet (20 sources)Nonsteroidal Anti-inflammatory DrugStart: 02-27-2018 End: 22-43-5498wkit 1 tablet by mouth twice dailyMeloxicam 7.5 mg Tablet Discontinued 7.5 MG PO Twice daily February 27, 2018 12:00am February 07, 2020 1:41pmStart: 07-30-2017 End: 02-03-0333ixle 1 tablet by mouth twice dailyMeloxicam 7.5 mg Tablet Discontinued 7.5 MG PO Twice daily July 30, 2017 1:00am January 10, 2018 7:51ammethylPREDNISolone 4 mg oral tablet (14 sources)CorticosteroidStart: 09-02-2024 End: 40-91-2915ablx 1 tablet by mouth onceMethylprednisolone (Medrol ([place])) 4 mg tablets,dose pack Discontinued 0 PO per package directions September 02, 2024 1:00am November 24, 2024 9:59am PO PER PKG DIR for 6 daysStart: 06-22-2023 Medrol 4 MG as directed Orally daily for 6 Jun, ActiveMulti Vitamin Oral Tablet (5 sources)take 1 tablet by mouth once dailyMulti Vitamin Oral Tablet TAKE 1 TABLET DAILY. Quantity: 0 Refills: 0 Ordered: 06-Sep-2021 DO ActiveMultivitamin preparation (17 sources)Start: 07-30-2017 End: 48-56-6962nxlc 1 tablet by mouth once daily in the morningMultivitamin Discontinued 1 TAB PO Every morning July 30, 2017 1:00am August 09, 2020 11:26amStart: 07-30-2017 End: 55-37-0599agmt 1 tablet by mouth once daily in the morningMultivitamin Discontinued 1 TAB PO Every morning July 30, 2017 12:00am August 09, 2020 10:26amMultivitamin ActiveMultivitamin Tablet (8 sources)Start: 07-30-2017 End: 57-51-0059xfuv 1 tablet by mouth once daily in the morningMultivitamin Tablet Discontinued 1 TAB PO Every morning July 30, 2017 1:00am August 09, 2020 11:26amStart: 07-30-2017 End: 77-49-9323vgmw 1 tablet by mouth once daily in the morningMultivitamin Tablet Discontinued 1 TAB PO Every morning July 30, 2017 12:00am August 09, 2020 10:26amMultivitamin With Folic Acid (Thera) 400 mcg tablet (15 sources)Start: 08-23-2020 End: 08-84-5624rsew 1 tablet by mouth once daily in the morningMultivitamin With Folic Acid (Thera) 400 mcg tablet Discontinued 1 TAB PO Every morning August 23, 2020 7:55pm September 07, 2020 9:58amStart: 08-23-2020 End: 10-02-6559rlyu 1 tablet by mouth once daily in the morningMultivitamin With Folic Acid (Thera) 400 mcg tablet Discontinued 1 TAB PO Every morning August 23, 2020 6:55pm September 07, 2020 8:58amnaloxegol 12.5 mg oral tablet (10 sources)Opioid Antagonisttake 1 tablet by mouth once daily in the morning Movantik 12.5 MG TAKE 1 TABLET BY MOUTH EVERY MORNING Oral for 30 Not-Taking/PRN omeprazole 40 mg delayed release oral capsule (20 sources)Proton Pump InhibitorStart: 07-21-2022 End: 72-40-1637cdsm 2 capsules by mouth once daily in the morningOmeprazole 20 mg capsule,delayed release(DR/EC) Discontinued 40 MG PO Every morning July 21, 2022 7:40am September 02, 2024 11:16amStart: 97-44-9211xgvm 40 mg by mouth once daily in the morningOmeprazole Active 40 MG PO Every morning July 21, 2022 7:40amStart: 11-21-2020 End: 98-50-9300Fcorfrfpgt 40 mg capsule,delayed release(DR/EC) Discontinued MG PO September 02, 2024 1:00am February 07, 2025 10:23amStart: 07-30-2017 End: 26-78-7920ougx 1 capsule by mouth once daily in the morningOmeprazole 20 mg Capsule,Delayed Release(Dr/Ec) Discontinued 20 MG PO Every morning September 06, 2020 1:00am July 21, 2022 7:40amComment on above:Take 20 mg by mouth once daily.ondansetron 4 mg oral tablet (10 sources)Serotonin-3 Receptor AntagonistOndansetron HCl 4 MG TAKE 1 TABLET BY MOUTH THREE TIMES DAILY Oral tid prn for 30 days PRN Not-Taking/PRNoxyCODONE hydrochloride 5 mg oral tablet (20 sources)Opioid AgonistStart: 08-23-2020 End: 61-52-0283gimi 2 tablets by mouth every six hours as needed for pain Oxycodone 5 mg Tablet Discontinued 10 MG PO Every 6 hours as needed for Pain Scale 6 - 10 August 23, 2020 September 07, 2020 9:58amStart: 08-23-2020 End: 95-94-7089oqga 1 tablet by mouth every six hours as needed for pain Oxycodone 5 mg Tablet Discontinued 5 MG PO Every 6 hours as needed for Pain Scale 1 - 5 August 23, 2020 September 07, 2020 9:58amStart: 08-23-2020 End: 72-40-6395xswr 10 mg by mouth every six hoursOxycodone Discontinued 10 MG PO Every 6 hours August 23, 2020 September 07, 2020 9:58amPolyethylene Glycols (10 sources)Polyethylene Glycol 3350 - 1 packet mixed with 8 ounces of fluid Orally Once a day Not-Taking/PRNPolyethylene Glycol 3350 - 1 packet mixed with 8 ounces of fluid Orally Once a day Not-Takingpotassium chloride 10 meq extended release oral capsule (15 sources)Start: 11-04-2020 End: 45-69-7422muax 1 capsule by mouth once dailyPotassium Chloride 10 mEq capsule, extended release Discontinued 10 MEQ PO Daily November 04189633:00am September 10, 2021 10:58ampredniSONE 20 mg oral tablet (20 sources)Start: 11-14-2024 End: 95-68-8439xnqi 2 tablets by mouth once daily at mealtimePrednisone 20 mg tablet Discontinued 40 MG PO Daily November 14, 2024 12:00am November 24, 2024 9:59am administer with food or milkStart: 09-06-2020 End: 23-36-1855qxka 2 tablets by mouth once dailyPrednisone 10 mg Tablet Discontinued 20 MG PO Daily Taper: Start: August 29, 2020 9:00am End: 2020 8:59am Frequency: DAILY Days: 3 Hours: 0 Dose: 40 Start: September 01, 2020 9:00am End: September 04, 2020 8:59am Frequency: DAILY Days: 3 Hours: 0 Dose: 30 Start: September 04, 2020 9:00am End: September 07, 2020 8:59am Frequency: DAILY Days: 3 Hours: 0 Dose: 20 Start: September 07, 2020 9:00am End: September 10, 2020 8:59am Frequency: DAILY Days: 3 Hours: 0 Dose: 10 0 September 06, 2020 1:00am September 10, 2021 10:58am Please contact the information source for Taper Schedule details.Start: 09-06-2020 End: 76-09-0889yojv 20 mg by mouth once dailyPrednisone Discontinued 20 MG PO Daily 0 September 06, 2020 1:00am September 10, 2021 10:58amPrenatal Vit No.939-Hzrw-Milob ( Vitamin) 27 mg iron- 800 mcg Tablet (15 sources)Start: 08-09-2020 End: 91-88-0271udgo 1 tablet by mouth once dailyPrenatal Vit No.701-Oaxt-Beenv ( Vitamin) 27 mg iron- 800 mcg Tablet Discontinued 1 TAB PO Daily August 09, 2020 1:00am September 07, 2020 9:58amStart: 08-09-2020 End: 03-30-1738rekp 1 tablet by mouth once dailyPrenatal Vit No.530-Roaf-Mtbrq ( Vitamin) 27 mg iron- 800 mcg Tablet Discontinued 1 TAB PO Daily August 09, 2020 12:00am September 07, 2020 8:58amprenatal vit no.124/iron/folic ( VITAMIN ORAL) (1 source) vit no.124/iron/folic ( VITAMIN ORAL) Take by mouth. 0 ActiveComment on above:Take by mouth.propranolol hydrochloride 10 mg oral tablet (20 sources)beta-Adrenergic BlockerStart: 04-05-2024 End: 85-83-2577Skowfhmbvuy 10 mg tablet Discontinued MG PO September 02, 2024 1:00am February 07, 2025 10:23amStart: 22-34-2490cfuf 1 tablet by mouth in the morningpropranolol (Inderal) 10 mg tablet Take 1 tablet (10 mg) by mouth early in the morning.. 11/11/2023ctivePsyllium (15 sources)Start: 07-30-2017 End: 16-84-7766llqn 1 [tsp_us] by mouth once dailyPsyllium Powder Discontinued 2 TSP PO Daily July 30, 2017 1:00am January 09, 2018 6:37amStart: 07-30-2017 End: 65-81-9446nitr 1 [tsp_us] by mouth once dailyPsyllium Powder Discontinued 2 TSP PO Daily July 30, 2017 12:00am January 09, 2018 5:37amStart: 07-30-2017 End: 91-11-7140hgdd 1 [tsp_us] by mouth once dailyPsyllium Discontinued 2 TSP PO Daily July 30, 2017 1:00am January 09, 2018 6:37amStart: 07-30-2017 End: 96-59-0591tgdt 1 [tsp_us] by mouth once dailyPsyllium Discontinued 2 TSP PO Daily July 30, 2017 12:00am January 09, 2018 5:37amSennosides (Senna Lax) 8.6 mg Tablet (11 sources)Start: 09-06-2020 End: 43-67-6786hawh 2 tablets by mouth once daily at bedtimeSennosides (Senna Lax) 8.6 mg Tablet Discontinued 2 TAB PO Daily at bedtime September 06, 2020 1:00am September 10, 2021 10:58amStart: 09-06-2020 End: 35-65-8191dlov 2 tablets by mouth once daily at bedtimeSennosides (Senna Lax) 8.6 mg Tablet Discontinued 2 TAB PO Daily at bedtime September 06, 2020 12:00am September 10, 2021 9:58amsennosides, [facility] 8.6 mg oral tablet (4 sources)Start: 09-06-2020 End: 59-93-4424pcom 2 tablets by mouth once daily at bedtimeSennosides (Senna Lax) 8.6 mg Tablet Discontinued 2 TAB PO Daily at bedtime September 06, 2020 1:00am September 10, 2021 10:58amsotalol hydrochloride 120 mg oral tablet (14 sources)AntiarrhythmicStart: 02-11-2024 End: 42-88-5428Eimwytw 120 mg tablet Discontinued 120 MG PO February 11, 2024 12:00am August 26, 2024 11:46amStart: 24-93-2002yugf 0.5 tablet by mouth every twelve hourssotalol (Betapace) 120 mg tablet Indications: Paroxysmal atrial fibrillation (Multi) Take 0.5 tablets (60 mg) by mouth every 12 hours. 30 tablet 5 01/26/2024 ActiveSoy Protein (7 sources)Start: 07-30-2017 End: 29-98-6562Isz Protein Discontinued 1 scoop/day PO Daily July 30, 2017 1:00am January 09, 2018 6:37amStart: 07-30-2017 End: 92-38-3757Avc Protein Discontinued 1 scoop/day PO Daily July 30, 2017 12:00am January 09, 2018 5:37amSoy Protein Powder (8 sources)Start: 07-30-2017 End: 36-29-5046Vmi Protein Powder Discontinued 1 scoop/day PO Daily July 30, 2017 1:00am January 09, 2018 6:37amStart: 07-30-2017 End: 80-74-6147Bel Protein Powder Discontinued 1 scoop/day PO Daily July 30, 2017 12:00am January 09, 2018 5:37amspironolactone 25 mg oral tablet (20 sources)Aldosterone AntagonistStart: 07-30-2017 End: 86-35-9878zcgh 1 tablet by mouth once daily at bedtimeSpironolactone 25 mg Tablet Discontinued 25 MG PO Daily at bedtime September 06, 2020 1:00am Sep 10:59amtiZANidine 2 mg oral capsule (15 sources)Central alpha-2 Adrenergic AgonistStart: 02-27-2018 End: 38-49-2477aszv 1 capsule by mouth once dailyTizanidine 2 mg Capsule Discontinued 2 MG PO daily February 27, 2018 12:00am March 09, 2019 12:25pm Triamcinolone (20 sources)CorticosteroidStart: 15-91-2444Qqssxqx -40 mg Sep, 40 mg Start: 27-47-6939Qkpxkdx -40 mg Apr, 40 mgStart: 64-62-0494Qrwcqxm -40 mg Mar, 40 mgvitamin b complex capsule (1 source)take 1 capsule by mouth once dailyvitamin b complex capsule Take 1 capsule by mouth once daily. 0 ActiveComment on above:Take 1 capsule by mouth once daily.Vitamin B Complex Capsule (8 sources)Start: 11-12-2021 End: 10-50-8773fvng 1 capsule by mouth once dailyVitamin B Complex Capsule Discontinued 1 CAP PO Daily November 12, 2021 12:00am August 26, 2024 11:47am Start: 11-12-2021 End: 22-98-7239zcnn 1 capsule by mouth once dailyVitamin B Complex Capsule Discontinued 1 CAP PO Daily November 11, 2021 11:00pm August 26, 2024 10:47am Vitamin B-3 TABS (3 sources)Vitamin B-3 TABS TAKE 1 TABLET DAILY DIRECTED. Quantity: 0 Refills: 0 Ordered: 06-Sep-2021 DO Active Problems Active Problems Problem ClassificationProblemDateDocumented DateEpisodic/ChronicAcute bronchitis (10 sources)Viral bronchitis; Translations: [Acute bronchitis due to other specified organisms]67-67-9478AhnaypdkRbsdiyegatprdu/social admission (17 sources)Other reduced mobility; Translations: [Impaired mobility and activities of daily living]92-87-6914AribqodzYrtukv; other and unspecified primary (5 sources)H/O: neoplasm; Translations: [Personal history of other specified diseases]EpisodicCardiac dysrhythmias (20 sources)Paroxysmal atrial fibrillation; Translations: [Atrial fibrillation] Onset: 23-85-675203595578-71-9016KtrpdebBhbqdiz kidney disease (20 sources)Chronic kidney disease stage 3B ; Translations: [Stage 3b chronic kidney disease (HCC)]Onset: 423309-04-4767XkbydzxCpzhrmesa of lipid metabolism (20 sources)Mixed hyperlipidemia; Translations: [Mixed hyperlipidemia]Onset: 815993-37-1145TfiqzkqUvfrymksingrld and diverticulitis (10 sources)Diverticular disease; Translations: [Diverticulosis of intestine, part unspecified, without perforation or abscess without bleeding]Chronic Esophageal disorders (20 sources)Lewis's esophagus; Translations: [Lewis's esophagus without dysplasia]Onset: 710332-54-0597JdrgzaaTfmpldlqc hypertension (20 sources)Essential hypertension; Translations: [Unspecified essential hypertension]Onset: 628030-24-0380AjgmagmQslpsmddu hypertension (1 source)Essential hypertensionOnset: 92-81-8475Ptyd and other crystal arthropathies (20 sources)Podagra; Translations: [Gout, unspecified]Onset: 11-25-2022 11-30-7459BmnjakaLmlyhokh; including migraine (15 sources)Wqyndcaw50-84-4714ThrwjwgDhtucpsmbwtp; infection of eye (except that caused by tuberculosis or sexually transmitteddisease) (2 sources)Hordeolum externum of upper eyelid of left eye; Translations: [Hordeolum externum left upper eyelid]88-67-5591LmgbdhjqCvmutgq and fatigue (6 sources)Physical deconditioning; Translations: [Other malaise]07-26-2024 EpisodicMenopausal disorders (20 sources)Primary ovarian failure; Translations: [Other primary ovarian failure]Onset: 592185-41-9906XiqfuexJtsz disorders (20 sources)Reactive depression (situational); Translations: [Major depressive disorder, single episode, unspecified]Onset: hronic Osteoarthritis (20 sources)Osteoarthritis of hip; Translations: [Unilateral primary osteoarthritis, right hip]Onset: 04-11-2021 Resolved: 81-09-9678SbvzhktMcmtbxwqvsuz (10 sources)Postmenopausal osteoporosis; Translations: [Age-related osteoporosis without current pathological fracture]ChronicOther acquired deformities (20 sources)Contracture of joint of right ankle; Translations: [Contracture, right ankle]Onset: 524960-05-1728HrujbkkBrmii acquired deformities (20 sources)Kyphoscoliosis deformity of spine; Translations: [Scoliosis, unspecified]Onset: 609730-82-8015DknmksdYqxlw acquired deformities (20 sources)Spondylolisthesis; Translations: [Spondylolisthesis, lumbar region] EpisodicOther aftercare (5 sources)Encounter for therapeutic drug level monitoring; Translations: [ENC THERAPEUTC DRUG LEVL MONITORING]Onset: 64-04-8157MdsgvcsiYogmb circulatory disease (5 sources)History of clinical finding in subject; Translations: [Personal history of other diseases of circulatory system]EpisodicOther connective tissue disease (20 sources)History of repair of hip joint; Translations: [Presence of right artificial hip joint]Onset: 565489-48-0982HdoldoiWjaae connective tissue disease (10 sources)History of left hip replacement; Translations: [Presence of left artificial hip joint]ChronicOther connective tissue disease (10 sources)History of total replacement of right hip joint; Translations: [Presence of right artificial hip joint]ChronicOther connective tissue disease (11 sources)Monoparesis - leg; Translations: [Other symptoms and signs involving the musculoskeletal system]18-84-1706RqwgezeyVgpkn connective tissue disease (12 sources)Trochanteric bursitis; Translations: [Trochanteric bursitis, right hip]77-75-7068GzvpxtpcPjhnx connective tissue disease (5 sources)Trochanteric bursitis, right hip; Translations: [Enthesopathy of hip region]48-28-2944GbbgpewzWnefh connective tissue disease (11 sources)History of lumbar fusion; Translations: [Arthrodesis status] 09-15-7829BujolabqBjaeh gastrointestinal disorders (10 sources)Chronic idiopathic constipation; Translations: [Chronic idiopathic constipation]ChronicOther gastrointestinal disorders (20 sources)Irritable bowel syndrome characterized by constipation; Translations: [Irritable bowel syndrome with constipation]Onset: 11-25-2022 29-54-7925PvqdsruHltqe gastrointestinal disorders (20 sources)Constipation; Translations: [Constipation, unspecified]08-30-2020 EpisodicOther gastrointestinal disorders (10 sources)Esophageal dysphagia; Translations: [Dysphagia, unspecified]Episodic Other inflammatory condition of skin (20 sources)Rosacea; Translations: [Rosacea, unspecified]Onset: 02-24-2024 87-06-7173YqadswmMemcf lower respiratory disease (2 sources)Cough; Translations: [Acute cough]91-58-3549StgsctgzTgkgd lower respiratory disease (11 sources)Dyspnea; Translations: [Shortness of breath]98-77-7137BgnnowtjTrrzi lower respiratory disease (1 source)Shortness of breath; Translations: [Shortness of breath]Onset: 17-45-9816FrobvpwsRfzqm nervous system disorders (10 sources)Neuropathy; Translations: [Polyneuropathy, unspecified]ChronicOther nervous system disorders (10 sources)Chronic pain; Translations: [Other chronic pain]ChronicOther nervous system disorders (2 sources)Other chronic pain; Translations: [Other chronic pain G89.29]Onset: 04-11-2021 Resolved: 58-38-5796BzzcpgcAflic nervous system disorders (15 sources)Cervical myelopathy; Translations: [Disease of spinal cord, unspecified]38-79-8403QjsvstuYgtxi nervous system disorders (3 sources)Paresthesia; Translations: [Paresthesia of skin]EpisodicOther nervous system disorders (1 source)Paresthesia of skinEpisodicOther non-traumatic joint disorders (3 sources)Pain in right knee; Translations: [Pain in joint, lower leg]Episodic Other nutritional; endocrine; and metabolic disorders (10 sources)Body mass index 30+ - obesity; Translations: [Obesity, unspecified] ChronicOther skin disorders (1 source)Hair follicle disorder; Translations: [Follicular disorder, unspecified]95-89-2873PgjjquriLgevn upper respiratory disease (1 source)Disorder of the nose; Translations: [Other specified disorders of nose and nasal sinuses]Onset: 85-59-3303UolshadvIfxcs upper respiratory disease (2 sources)Hoarse; Translations: [Dysphonia]19-30-6681GqziqkueRuzvy upper respiratory disease (2 sources)Other specified disorders of nose and nasal sinuses; Translations: [Other disease of nasal cavity and sinuses]97-32-0371CtffibmmRxanxsiyhp and visceral atherosclerosis (20 sources)Peripheral vascular disease; Translations: [Peripheral vascular disease, unspecified]Onset: 04-04-2020 Resolved: 891821-30-5468EfwnxncFlpkaiav codes; unclassified (20 sources)Sleep apnea; Translations: [Sleep apnea, unspecified]Onset: 432045-13-0630LowaiknGcqhwqj on above:no longer need CPAP since lost weightResidual codes; unclassified (20 sources)Dependence on enabling machine or device; Translations: [Dependence on other enabling machines and devices]Onset: hronic Residual codes; unclassified (2 sources)Swelling - edema - symptom; Translations: [Edema]EpisodicResidual codes; unclassified (20 sources)Patient encounter status; Translations: [Encounter for prophylactic measures, unspecified]Onset: 11-11-2023 Resolved: 730754-00-7574DuxalaneSsvzehyz codes; unclassified (2 sources)Memory impairment; Translations: [Other amnesia]12-74-8023Xkioqpoc Spondylosis; intervertebral disc disorders; other back problems (20 sources)Lumbosacral spondylosis without myelopathy; Translations: [Other spondylosis with radiculopathy, lumbar region]Onset: 04-11-2021 Resolved: 58-23-1944OpkmehyJwiwxvncmzbt (2 sources)Abnormal electrocardiogram [ECG] [EKG] / R94.31(ICD-9)Onset: 22-82-5740Umrdaacbrufa (2 sources)Abnormal findings on diagnostic imaging of body structures / R93.8(ICD-9)Onset: 85-05-3391Snblhtiloyfz (1 source)Atrial septal defect / Q21.1(ICD-9)Onset: 69-71-5621Pmwakraqmlin (3 sources)History of clinical finding in udvmcoc81-76-8533Kllfgxqxfbgd (2 sources)M70.61 - Trochanteric bursitis, right hip,Z98.890 - Other specified postprocedural states Past or Other Problems Problem ClassificationProblemDateDocumented DateEpisodic/ChronicAbdominal pain (20 sources)Right flank pain; Translations: [Unspecified abdominal pain]Onset: 11-11-2023 Resolved: 442351-40-5812JamtvaunFqbxmsl dysrhythmias (20 sources)Tachycardia; Translations: [Tachycardia, unspecified]Onset: 029559-03-6030XvezmbwlCooieht obstructive pulmonary disease and bronchiectasis (1 source)Bronchitis, not specified as acute or chronicOnset: 06-08-2021 Resolved: 99-00-7246QqcevmapAogtlomttt and other anemia (20 sources)Anemia; Translations: [Anemia, unspecified]Onset: 11-11-2023 Resolved: 646200-82-0132FnjqfztdAxeayazu mellitus without complication (20 sources)Impaired glucose tolerance; Translations: [Impaired glucose tolerance (oral)]Onset: 920354-69-5698ConacwaxO Codes: Fall (20 sources)Fall; Translations: [Unspecified fall, initial encounter]Onset: 11-11-2023 Resolved: 660678-89-7265JbriazeqFeeqe and electrolyte disorders (20 sources)Hypokalemia; Translations: [Hypokalemia]Onset: EpisodicGastrointestinal hemorrhage (4 sources)Gastrointestinal hemorrhage, unspecified; Translations: [GASTROINTESTINAL HEMORRHAGE UNS]Onset: 58-78-2768AphfeafuVobsakhkqxrzc and screening for infectious disease (1 source)Contact with and (suspected) exposure to other viral communicable diseasesOnset: 06-08-2021 Resolved: 25-37-2003MfiltiisGxjt disorders (20 sources)Mood disordersOnset: 09-22-2023 Resolved: 542153-39-4094Lntrfzibiac chest pain (20 sources)Chest pain; Translations: [Chest pain, unspecified]Onset: 11-11-2023 Resolved: 239699-40-2327KtjzqmmdPvczm aftercare (20 sources)Drug therapy finding; Translations: [Long-term (current) use of anticoagulants]Onset: 111913-67-1196IdcnnzvrVuvjt aftercare (3 sources)FDC (current) use of anticoagulants; Translations: [INTERMEDIATE CURRNT USE ANTICOAGULANTS]Onset: 01-01-7805EtuhrdrrHxzfh aftercare (1 source)Other rat exterminator (current) drug therapy; Translations: [OTH FOOTWEAR MACHINERY INSTRUCTOR CURRENT DRUG THERAPY]Onset: 92-92-7933HynlhkbnQgurp connective tissue disease (5 sources)Arthrodesis status; Translations: [Arthrodesis status]Onset: 89-26-8143IgdgqadeKeyiz connective tissue disease (20 sources)Other symptoms and signs involving the musculoskeletal system; Translations: [Other musculoskeletalsymptoms referable to limbs]Onset: 814772-74-7458FstihuqcGmmxa ear and sense organ disorders (1 source)Other infective otitis externa, left earOnset: 05-04-2021 Resolved: 93-11-6008XqmnlcvoMgglc ear and sense organ disorders (20 sources)Bilateral tinnitus; Translations: [Tinnitus, bilateral]Onset: 742255-51-8841VnvrmzbsXvnrj gastrointestinal disorders (20 sources)Slow transit constipation; Translations: [Slow transit constipation] Onset: 150158-75-3748CfcyykisFumnu gastrointestinal disorders (1 source)Constipation, unspecified; Translations: [Constipation, unspecified] Onset: 58-28-3990HuqtrockUvgqx injuries and conditions due to external causes (20 sources)At high risk for fall; Translations: [History of falling]Onset: 451105-25-4288WbwhbqdgJpayx injuries and conditions due to external causes (2 sources)History of falling; Translations: [History of falling]Onset: 23-69-2174SfhewcmjZkifl nervous system disorders (20 sources)Postoperative pain ; Translations: [Other acute postprocedural pain] Onset: 648049-62-6943InmndkkjAcoqj nervous system disorders (20 sources)Tremor; Translations: [Tremor, unspecified]Onset: 09-22-2023 16-52-5116IzlohgnzUtjbu non-traumatic joint disorders (20 sources)Shoulder pain; Translations: [Pain in unspecified shoulder]Onset: 11-11-2023 Resolved: 728717-07-2753LbcuvjuiSzngy non-traumatic joint disorders (20 sources)Pain in unspecified knee; Translations: [Knee pain]Onset: 11-11-2023 86-52-7980OkwcwfrnBmaec non-traumatic joint disorders (1 source)Pain in right hip; Translations: [Pain in right hip]Onset: 11-14-2024 EpisodicOther nutritional; endocrine; and metabolic disorders (7 sources)Overweight in adulthood with body mass index of 25 or more but less than 30; Translations: [Overweight]Onset: 556603-94-3609VnuzaujgWagcw nutritional; endocrine; and metabolic disorders (2 sources)Body mass index (BMI) 25.0-25.9, adult; Translations: [Body mass index (BMI) 25.0-25.9, adult]Onset: 53-79-0141GkhtcncmYqnsz screening for suspected conditions (not mental disorders or infectious disease) (20 sources)Abnormal electrocardiogram [ECG] [EKG]; Translations: [Abnormal findings on diagnostic imaging of other specified body structures]Onset: 02-09-2018 Resolved: 701023-80-0543JknwslvaSqikr upper respiratory disease (4 sources)Epistaxis; Translations: [EPISTAXIS]Onset: 90-23-1411AzzpkeejTibxe upper respiratory disease (20 sources)Bleeding from nose; Translations: [Epistaxis]Onset: 11-25-2022 Resolved: 858384-17-4121QevgaiwtEhchlf media and related conditions (1 source)Acute serous otitis media, left earOnset: 05-04-2021 Resolved: 11-66-4845XrzbiaokGhgqauot codes; unclassified (1 source)Pain, unspecifiedOnset: 06-08-2021 Resolved: 94-57-3731UmywejoaQngwzgvd codes; unclassified (20 sources)Edema; Translations: [Edema]Onset: 06-05-2023 Resolved: 964644-92-3181AlhfigcuUorcgvld codes; unclassified (20 sources)History of operative procedure on lumbar spinal structure; Translations: [Other specified postprocedural states]Onset: EpisodicResidual codes; unclassified (1 source)Family history of malignant neoplasm of breast; Translations: [FAMILY HX MALIG NEOPLASM OF BREAST]Onset: 34-24-2707HyjadmcxPtpddiuf codes; unclassified (1 source)Family history of malignant neoplasm of trachea, bronchus and lung; Translations: [FAM HX MALIG NEOPLSM TRACH BRON LNG]Onset: 08-34-2417Digpvzfx Residual codes; unclassified (1 source)Family history of malignant neoplasm of digestive organs; Translations: [FAM HX MALIG NEOPLASM DIGESTIV ORGN]Onset: 13-82-9251Xeijepdd Residual codes; unclassified (1 source)Family history of malignant neoplasm of prostate; Translations: [FAMILY HX MALIG NEOPLASM PROSTATE]Onset: 34-37-1033MhmainkiDrnrftqw codes; unclassified (1 source)Acquired absence of other specified parts of digestive tract; Translations: [ACQ ABSENCE OTH PART DIGESTV TRACT]Onset: 12-40-8184Xtkqrsrm Residual codes; unclassified (1 source)Acquired absence of both cervix and uterus; Translations: [ACQUIRED ABSENCE BOTH CERVIX AND UTERUS]Onset: 10-79-1858GttbcibkDadnkskb codes; unclassified (20 sources)Edema of right lower limb; Translations: [Localized edema]Onset: 194801-50-7962CwqonlhfRbraqldiw and history of mental health and substance abuse codes (20 sources)Ex-smoker; Translations: [Personal history of tobacco use]Onset: 743941-77-9733DulbttxbFmscqsl on above:quit 1971;Spondylosis; intervertebral disc disorders; other back problems (20 sources)Radiculopathy due to lumbar intervertebral disc disorder; Translations: [Intervertebral disc disorders with radiculopathy, lumbar region] Onset: 04-11-2021 Resolved: 96-14-4361OdekldgaJgxwywdtspf injury; contusion (20 sources)Contusion of head; Translations: [Contusion of unspecified part of head, initial encounter]Onset: 11-11-2023 Resolved: 139289-80-9167UvuydmypQocxxhyvtovl (3 sources)Onset: 07-02-2023 Resolved: Results Test NameValueInterpretationReference RangeFacilityECH echo transthoracicon 62-89-1534AQK echo transthoracicOH[facility] Main [place] [address] [place] [address] Echocardiogram Signed Patient: Elicia Dent MR#: [id number] 8 : 1950 Acct:[id number] Age/Sex: 74 / F ADM Date: 04/05/25 Loc: [place] Room: Type: [facility] Attending Dr: Nuno Yañez MD Ordering Provider: Nuno Yañez MD Date of Service: 04/05/25 ECH/ECH echo transthoracic: R06.02 - Shortness of breath Copies to: Nuno Yañez MD Weight: 164 lb Performed By: PALOMO Chavez BSA: 1.8 m2 BP: 145/66 mmHg HR: 52 Reason For Study: R06.02 - Shortness of breath History: HTN, COVID, A-Fib. Interpretation Summary Ejection Fraction = 60-65%. No regional wall motion abnormalities noted. A variety of Doppler measurements indicate normal left ventricular diastolic function. The left ventricular size and thickness are normal. Mild aortic regurgitation. Compared to prior study, there is no significant change. Procedure/Quality: A two-dimensional transthoracic echocardiogram with color flow and Doppler was performed. The study was technically good in quality. Left Ventricle: The left ventricular size and thickness are normal. Ejection Fraction = 60-65%. A variety of Doppler measurements indicate normal left ventricular diastolic function. No regional wall motion abnormalities noted. Left Atrium: The left atrium appears normal in size. Right Atrium: The right atrium appears normal in size. Right Ventricle: The right ventricle is normal in size and function. Aortic Valve: The aortic valve is normal in structure. No hemodynamically significant valvular aortic stenosis. Mild aortic regurgitation. Mitral Valve: The mitral valve is normal in structure. No significant mitral valve stenosis. There is no mitral regurgitation noted. Tricuspid Valve: The tricuspid valve is normal in structure. No tricuspid regurgitation. Pulmonic Valve: The pulmonic valve is not well visualized. No significant pulmonic regurgitation. Arteries: The aortic root is normal size. Pericardium/Pleura: No pericardial effusion seen. IVC/Hepatic Veins: The inferior vena cava is normal in size, with a normal collapsibility index. Measurements with Normals IVSd: 1.0 cm (0.7-1.1 cm)LVIDd: 4.3 cm (3.7-5.4 cm) LVPWd: 1.1 cm (0.7-1.1 cm)LVIDs: 2.6 cm (2.3-3.6 cm) LA dimension: 3.6 cm (2.3-4.0 cm)Ao root diam: 3.0 cm(2.0-3.6 cm) asc Aorta Diam: 3.1 cm(2.1-3.4cm) Doppler with Normals RVSP(TR): 33.7 mmHg (18-35mmHg) LV V1 max: 108.0 cm/sec (0.7-1.7m/s)MV E max juan j: 62.1 cm/sec(0.8-1.3m/s) MV A max juan j: 97.3 cm/sec(0.0-0.0m/s) MV E/A: 0.64 (<1.5) MMode/2D Measurements Calculations RVDd: 3.2 cm FS: 38.7 % Ao root area: LVOT diam: 2.0 cm TAPSE: 2.8 cm EDV(Teich): 7.1 cm2 LVOT area: 3.3 cm2 RV S Juan J: 81.0 ml 13.4 cm/sec ESV(Teich): 24.8 ml EF(Teich): 69.3 % __ LVLd ap4: 7.0 cm SV(MOD-sp4): LAV(MOD-sp4): LA A2 area: 15.7 cm2 EDV(MOD-sp4): 35.0 ml 56.8 ml 60.9 ml LAV(MOD-sp2): LA A4 area: 20.0 cm2 LVLs ap4: 6.0 cm 36.7 ml LA length (vol): ESV(MOD-sp4): 5.8 cm 25.9 ml LA vol: 46.0 ml EF(MOD-sp4): 57.5 % LA vol index: 25.3 ml/m2 Doppler Measurements Calculations MV dec time: MV V2 max: E/E' lat: 6.5 MV P1/2t max juan j: 0.35 sec 117.9 cm/sec E/E' med: 8.2 94.6 cm/sec MV max P.0 mmHg MV P1/2t: 111.0 msec MV V2 mean: 65.2 cm/sec MVA(P1/2t): 2.0 cm2 MV mean P.0 mmHg MV dec slope: MV V2 VTI: 44.6 cm 249.7 cm/sec2 MVA(VTI): 2.2 cm2 __ Ao V2 max: AI max juan j: LV V1 max PG: MR max juan j: 177.0 cm/sec 351.7 cm/sec 4.7 mmHg 364.6 cm/sec Ao max PG: AI max P.7 mmHgLV V1 mean PG: MR max P.1 mmHg 12.5 mmHg AI dec slope: 3.0 mmHg Ao mean PG: LV V1 mean: 7.0 mmHg 126.7 cm/sec2 73.7 cm/sec Ao V2 mean: AI P1/2t: 813.3 msecLV V1 VTI: 119.0 cm/sec 30.1 cm Ao V2 VTI: 49.4 cm MAGDI(I,D): 2.0 cm2 MAGDI(V,D): 2.0 cm2 __ TV max PG: TR max juan j: 29.0 mmHg 267.9 cm/sec TR max P.7 mmHg RAP systole: 5.0 mmHg Measurements from QLAB CI (HM): ED Mass (HM): LAEF (HM): 58.0 % BSA (HM): 1.8 m2 121.0 grams 1.9 l/min/m2 __ ANTHONY (HM): LAVmax (HM): LAVmin (HM): 23.0 mlPat Height (HM): 30.0 ml/m2 55.0 ml 165.0 cm __ Pat Weight (HM): 74.4 kg QLAB Heart Model EDV ()_phl: 91.0 ml EF ()_phl: 68.0 % ED Current ()_phl: 60.0 % ESV ()_phl: 29.0 ml HR ()_phl: 56.0 BPMES Current ()_phl: 30.0 % LV Length ED (HM)_phl: 75.0 mmSV ()_phl: 62.0 ml ED Default ()_phl: 60.0 % LV Length ES ()_phl: 58.0 mm ES Default ()_phl: 30.0 % Transcribed By: BENJI Performed At: 04/05/25 1145 Signed By: Nuno Yañez MD 04/05/25 1747[facility] Physician GroupNM yaw perf SPECT rest stron 74-90-5349BY yaw perf SPECT rest str [facility] [place] [address] Nuclear Medicine Report Signed Patient: Elicia Dent MR#: [id number] 8 : 1950 Acct:[id number] Age/Sex: 74 / F ADM Date: 04/05/25 Loc: [place] Room: Type: [facility] Attending Dr: Nuno Yañez MD Copies to: MD Elicia Cuellar MD Ordering Provider: Nuno Yañez MD Date of Service: 04/05/25 NM/NM yaw perf SPECT rest str: R06.02 RO7.89 NUCLEAR MYOCARDIAL PERFUSION DATE OF PROCEDURE: 04/05/2025 PROCEDURE: The patient received a stress dose of Lexiscan and was then injected with 18.3 millicuries of Technetium 99M Sestamibi. For rest images the patient was injected with 6.6 millicuries of Technetium 99M Sestamibi. FINDINGS: The raw cine images were reviewed. The post stress and rest perfusion images were reviewed as well as the computer quantification.? There was uniform uptake of the radiotracer with no perfusion defects identified.? On the gated portion of the study, there was uniform thickening with an overall ejection fraction calculated at 42%. There was increased gut uptake which may affect calculation of LV function. TID score was within normal limits. CONCLUSION: 1. Gated spect Sestamibi study is within normal limits. 2. Left ventricular function was reduced at 42% however there was increased gut uptake that may affect the calculated LVEF. Recommend ECHO to confirm LV function. Impression dictated by: Elicia Lam M.D. 04/05/2025 1:53 PM Dictation Location: [place] [address] Transcribed By: [facility] 04/05/25 1353 Dictated By: Elicia Lam MD 04/05/25 1350 Signed By: 04/05/25 1353[facility] Physician GroupFPG ECG *CARDIOLOGY ONLY*on 87-30-7819DAW ECG *CARDIOLOGY ONLY*[facility] [place] [address] Electrocardiograph Report Signed Patient: Elicia Dent MR#: [id number] 8 : 1950 Acct:[id number] Age/Sex: 74 / F ADM Date: 02/07/25 Loc: [facility] Room: Type: [facility] Attending Dr: Nuno Yañez MD Ordering Provider: Nuno Yañez MD Date of Service: 02/07/25 ECG/FPG ECG *CARDIOLOGY ONLY*: I48.0 - Paroxysmal atrial fibrillation Copies to: Test Reason : Blood Pressure : */* mmHG Vent. Rate : 62 BPM Atrial Rate : 62 BPM P-R Int : 168 ms QRS Dur : 64 ms QT Int : 392 ms P-R-T Axes : 61 21 36 degrees QTcB Int : 397 ms Normal sinus rhythm with sinus arrhythmia Normal ECG Confirmed by Elicia Lam ([id number]) on 02/07/2025 1:15:24 PM Referred By: Electronically Signed By: Elicia Lam Transcribed By: MUS Signed By Elicia Lam MD 5 1315[facility] Physician GroupCT CHEST W CONTRASTon 45-05[place]2778[place] [address] CT Scan Report Signed Patient: ELICIA DENT MR#: [id number] : 1950 Acct:[id number] Age/Sex: 74 / F ADM Date: 01/30/25 Loc: LAB Attending Dr: ROSALVA RUST Ordering Physician: ROSALVA RUST Date of Service: 01/30/25 Procedure(s): CT chest w con Accession Number(s): [id number] cc: KYLE ALMENDAREZ [place] [address] Patient Name: ELICIA DENT MRN: [id number] date: 1950 Sex: F Assigned Patient Location: LAB Current Patient Location: LAB Accession/Order Number: [id number] Exam Date: 01/30/2025 08:34 Report Date: 01/30/2025 08:37 At the request of: ROSALVA RUST Procedure: CT chest w con CT CHEST WITH INTRAVENOUS CONTRAST: CLINICAL HISTORY: Chest Pain, Shortness Of Breath, Malaise And Fatigue COMPARISON: None TECHNIQUE: Spiral images were obtained through the chest following intravenous administration of IV contrast. This CT exam was performed using one or more following dose reduction techniques: Automated exposure control, adjustment of the mA and/or kV according to patient size, or use of iterative reconstruction technique. FINDINGS: Mediastinum:Thoracic aorta appears normal in caliber. Pulmonary trunk appears nondilated. No pleural effusion or lymphadenopathy. The esophagus is grossly unremarkable. Lungs:Mild dependent and bibasilar atelectasis. No consolidation pneumothorax or pleural effusion. No suspicious pulmonary nodule. Abd:Subcentimeter low-attenuation lesion involving the right lobe of liver too small for accurate characterization. Soft tissues/Bones: No acute findings. Osseous structures demonstrate degenerative change. CT/CT chest w con IMPRESSION: No acute findings. Impression dictated by: George Bernabe Jr., D.OBekah 01/30/2025 8:37 AM Dictation Location: [place] [address] Electronically authenticated by: [id number] Y Date: 01/30/2025 08:37 Dictated By: George Bernabe M.D. Signed By: 01/30/25 0839 DD/ TD/TT: Upholstery Parts Sorter:NUNUadiology, Radiologist, - 01/30/2025 [place] [address] CT Scan Report Signed Patient: ELICIA DENT MR#: [id number] : 1950 Acct:[id number] Age/Sex: 74 / F ADM Date: 01/30/25 Loc: LAB Attending Dr: ROSALVA RUST Ordering Physician: ROSALVA RUST Date of Service: 01/30/25 Procedure(s): CT chest w con Accession Number(s): [id number] cc: KYLE ALMENDAREZ [place] [address] Patient Name: ELICIA DENT MRN: [id number] date: 1950 Sex: F Assigned Patient Location: LAB Current Patient Location: LAB Accession/Order Number: [id number] Exam Date: 01/30/2025 08:34 Report Date: 01/30/2025 08:37 At the request of: ROSALVA RUST Procedure: CT chest w con CT CHEST WITH INTRAVENOUS CONTRAST: CLINICAL HISTORY: Chest Pain, Shortness Of Breath, Malaise And Fatigue COMPARISON: None TECHNIQUE: Spiral images were obtained through the chest following intravenous administration of IV contrast. This CT exam was performed using one or more following dose reduction techniques: Automated exposure control, adjustment of the mA and/or kV according to patient size, or use of iterative reconstruction technique. FINDINGS: Mediastinum:Thoracic aorta appears normal in caliber. Pulmonary trunk appears nondilated. No pleural effusion or lymphadenopathy. The esophagus is grossly unremarkable. Lungs:Mild dependent and bibasilar atelectasis. No consolidation pneumothorax or pleural effusion. No suspicious pulmonary nodule. Abd:Subcentimeter low-attenuation lesion involving the right lobe of liver too small for accurate characterization. Soft tissues/Bones: No acute findings. Osseous structures demonstrate degenerative change. CT/CT chest w con IMPRESSION: No acute findings. Impression dictated by: George Bernabe Jr., D.O. 01/30/2025 8:37 AM Dictation Location: [place] [address] Electronically authenticated by: [id number] Y Date: 01/30/2025 08:37 Dictated By: George Bernabe M.D. Signed By: 01/30/25 0839 DD/ TD/TT: Upholstery Parts Sorter: AVERY HealthcareRadiology Study observation (narrative)[facility] HealthcareCT CHEST W CONTRASTOrdered By: Radiologist Radiology on 53-48-8973SL[facility] Work Phone: TB CREATININEon 54-25-5512Shmwmrxbqt [Mass/Vol]0.85 mg/dL0.55 - 1.02 mg/dLNOEastern Missouri State HospitalGFR/1.73 sq M.predicted CKD-EPI (S/P/Bld) [Vol rate/Area]>60>=60 mL/min/1.73m 2[facility] HealthcareTBH EGFR-NON AF [place]>60 >=60 mL/min/1.73m 2NOMS [facility] HospitalCLINISYNCNCenterpoint Medical CenterBASIC METABOLIC PANEL on 66-95-8041Dwugmtk [Mass/Vol]9.6 mg/dLNormal8.6-10.4Quest DiagnosticsComment on above:Performed By: #### 81886 #### [facility] [place] [address] Warehouse Puller: Troy CROWDERhloride [Moles/Vol]102 mmol/AChejnw10-806 [facility] DiagnosticsComment on above:Performed By: #### 71469 #### [facility] [place] [address] Warehouse Puller: Troy Nunez MDCO2 [Moles/Vol]32 mmol/HEbewkf42-46Bnued DiagnosticsComment on above:Performed By: #### 33158 #### [facility] [place] [address] Warehouse Puller: Troy Nunez MDCreatinine [Mass/Vol]0.90 mg/dLNormal0.60-1.00 Quest DiagnosticsComment on above:Performed By: #### 09960 #### [facility] [place] [address] Warehouse Puller: Troy Nunez MDGFR/1.73 sq M.predicted among non-blacks MDRD (S/P/Bld) [Vol rate/Area]67 mL/min/{1.73_m2}Normal> OR = 60[facility] Comment on above:Performed By: #### 51443 #### [facility] of [place] [address] Warehouse Puller: Troy Nunez MDGlucose [Mass/Vol]93 mg/bYBtdwnx80-39Rlykb DiagnosticsComment on above:Result Comment: Fasting reference intervalPerformed By: #### 05319 #### [facility] [place] [address] Warehouse Puller: Troy Nunez MDPotassium [Moles/Vol]4.4 mmol/LNormal3.5-5.3 Quest DiagnosticsComment on above:Performed By: #### 36686 #### [facility] [place] [address] Warehouse Puller: Troy Nunez MDSodium [Moles/Vol]142 mmol/KEdapll313-267Pbkwl DiagnosticsComment on above:Performed By: #### 28773 #### [facility] [place] [address] Warehouse Puller: Troy Nunez MDUrea nitrogen [Mass/Vol]34 mg/dLHigh7-25Quest DiagnosticsComment on above:Performed By: #### 94969 #### [facility] [place] [address] Warehouse Puller: Troy Nunez MDUrea nitrogen/Creatinine [Mass ratio]38 mg/mg High6-22Quest DiagnosticsComment on above:Performed By: #### 19417 #### [facility] [place] [address] Warehouse Puller: Troy Nunez MDXR lumbar spine 6V w [facility] 88-12-7274TM lumbar spine 6V w [facility] Main [address] [address] XRay Report Signed Patient: Elicia Dent MR#: [id number] 8 : 1950 Acct:[id number] Age/Sex: 74 / F ADM Date: 11/24/24 Loc: XD Room: Type: [facility] Attending Dr: Cinthia Xie APRN Copies to: [...] Carmichael M.D. 11/24/2024 2:05 PM Dictation Location: [place] [address] Transcribed By: [facility] 11/24/24 1405 Dictated By: Mauro Carmichael DO 11/24/24 1403 Signed By: 11/24/24 1405[facility] Physician GroupLIPID PANEL, STANDARD 94-19-4169Ffkyizdplmu [Mass/Vol]245 mg/dLHigh<200Quest DiagnosticsComment on above:Order Comment: FASTING:YES FASTING: YESPerformed By: #### 7600 #### [facility] [address], [address] [place] [address] Warehouse Puller: Troy Nunez MDCholesterol in HDL [Mass/Vol]62 mg/dLNormal> OR = 50Quest DiagnosticsComment on above:Order Comment: FASTING:YES FASTING: YESPerformed By: #### 7600 #### [facility] [address], [address] [place], [place] [address] Warehouse Puller: Troy Nunez MDCholesterol in LDL [Mass/Vol]157 mg/dLHigh Quest DiagnosticsComment on above:Order Comment: FASTING:YES FASTING: YESResult Comment: Reference range: <100 Desirable range <100 mg/dL for primary prevention; <70 mg/dL for patients with CHD or diabetic patients with > or = 2 CHD risk factors. LDL-C is now calculated using the Alyssa calculation, which is a validated novel method providing better accuracy than the Friedewald equation in the estimation of LDL-C. Bruce BRODY et al. VANESSA. 2013;310(19): 2301-8227 (http://education.Nexis Vision.Origo.by/faq/LGU052)Performed By: #### 7600 #### [facility] [address], [address] [place] [address] Warehouse Puller: Troy CROWDERholesterol.total/Cholesterol in HDL [Mass ratio]4.0 {ratio}Normal<5.0Quest DiagnosticsComment on above:Order Comment: FASTING:YES FASTING: YESPerformed By: #### 7600 #### [facility] [address], [address] [place] [address] Warehouse Puller: Troy SULLIVAN HDL KYUVMXHVUGD305 mg/dL (calc)High<130 Quest DiagnosticsComment on above:Order Comment: FASTING:YES FASTING: YESResult Comment: For patients with diabetes plus 1 major ASCVD risk factor, treating to a non-HDL-C goal of <100 mg/dL (LDL-C of <70 mg/dL) is considered a therapeutic option.Performed By: #### 7600 #### [facility] [address], [address] [place] [address] Warehouse Puller: Troy Nunez MDTriglyceride [Mass/Vol]137 mg/dLNormal<150 Quest DiagnosticsComment on above:Order Comment: FASTING:YES FASTING: YESPerformed By: #### 7600 #### [facility] [address], [address] [place] [address] Warehouse Puller: Troy Nunez MDBasophils Auto (Bld) [#/Vol]Ordered By: Apryl Cardenas on 09-72-6146Qutsoywmq (Bld) [#/Vol]Automated basophil count0.0-0.2 [facility] AdministrationBasophils/100 WBC Auto (Bld)Ordered By: Apryl Cardenas on 26-91-8979Vscucqfgx/100 WBC (Bld)Automated basophil %.[facility] AdministrationComplete Blood Count Auto Diffon 97-08-6923Dzwjkomff (Bld) [#/Vol]0.1 10*3/uLNormal0.0-0.2[facility] Physician GroupComment on above:Result Comment: PERFORMED BY: [place] [address] PATHOLOGIST RESEARCH STATISTICIAN LILY CHRISTIANSON M.D.Performed By: #### CBC #### [place] [address] USABasophils/100 WBC (Bld)1.0 %Normal.[facility] Physician GroupComment on above:Performed By: #### CBC #### [place] [address] USAEosinophils (Bld) [#/Vol]0.0 10*3/uLNormal0.0-0.45[facility] Physician GroupComment on above:Performed By: #### CBC #### [place] [address] USAEosinophils/100 WBC (Bld)0.8 %Normal.[facility] Physician GroupComment on above:Performed By: #### CBC #### [place] [address] USAErythrocyte distribution width (RBC) [Ratio]13.2 %Normal 11.9-15.3[facility] Physician GroupComment on above:Performed By: #### CBC #### [place] [address] USAHematocrit (Bld) [Volume fraction]41.7 %Gznywf18.0-46.4[facility] Physician GroupComment on above:Performed By: #### CBC #### [place] [address] USAHemoglobin (Bld) [Mass/Vol]14.0 g/fFBcvgzd48.8-15.4[facility] Physician GroupComment on above:Performed By: #### CBC #### [facility] [address] [place] [address] USALymphocytes (Bld) [#/Vol]1.6 10*3/uLNormal1.00-4.8[facility] Physician GroupComment on above:Performed By: #### CBC #### [place] [address] USALymphocytes/100 WBC (Bld)27.0 %Normal.The [facility] Physician GroupComment on above:Performed By: #### CBC #### [place] [address] USAMCH (RBC) [Entitic mass]31.5 aoIktwjc54.7-34.3The [facility] Physician GroupComment on above:Performed By: #### CBC #### [place] [address] USAMCV (RBC) [Entitic vol]94.1 aHPtnpsl28-238Qjo [facility] Physician GroupComment on above:Performed By: #### CBC #### [place] [address] USAMean Corpuscular HGB Conc33.5 g/sQXxvsby14.0-35.0The [facility] Physician GroupComment on above:Performed By: #### CBC #### [place] [address] USAMonocytes (Bld) [#/Vol]0.5 10*3/uLNormal0.0-0.8The [facility] Physician GroupComment on above:Performed By: #### CBC #### [place] [address] USAMonocytes/100 WBC (Bld)8.5 %Normal.[facility] Physician GroupComment on above:Performed By: #### CBC #### [place] [address] USANeutrophils (Bld) [#/Vol]3.6 10*3/uLNormal1.8-7.7The [facility] Physician GroupComment on above:Performed By: #### CBC #### [facility] [address] [place] [address] USANeutrophils/100 WBC (Bld)62.7 %Normal.The [facility] Physician GroupComment on above:Performed By: #### CBC #### [facility] [address] [place] [address] USANRBC%0.2 /100{WBC}Normal0-0.5[facility] Comment on above:Performed By: #### CBC #### [facility] [address] [place] [address] USAPlatelet mean volume (Bld) [Entitic vol]8.3 fLNormal 6.3-10.7The [facility] Physician GroupComment on above:Performed By: #### CBC #### [place] [address] USAPlatelets (Bld) [#/Vol]278 10*3/wCAvynxv743-887Mja [facility] Physician GroupComment on above:Performed By: #### CBC #### [place] [address] USARBC (Bld) [#/Vol]4.44 10*6/uLNormal3.60-5.00[facility] Physician GroupComment on above:Performed By: #### CBC #### [place] [address] USAWBC (Bld) [#/Vol]5.8 10*3/uLNormal3.8-11.6The [facility] Physician GroupComment on above:Performed By: #### CBC #### [place] [address] USAEosinophils Auto (Bld) [#/Vol]Ordered By: Apryl Cardenas on 55-92-8308Mmayrevodts (Bld) [#/Vol]Automated eosinophil count0.0-0.45[facility] Health AdministrationEosinophils/100 WBC Auto (Bld)Ordered By: Apryl Cardenas on 60-07-7489Wfhwftfgmjo/100 WBC (Bld)Automated eosinophil %.[facility] Health AdministrationErythrocyte distribution width Auto (RBC) [Ratio]Ordered By: Apryl Cardenas on 54-97-6440Dmpsuqbejfb distribution width (RBC) [Ratio] Erythrocyte distribution width [Ratio] by Automated count11.9-15.3FLima Memorial HospitalHematocrit Auto (Bld) [Volume fraction]Ordered By: Apryl Cardenas on 05-77-2282Kqgiqvdpao (Bld) [Volume fraction]Hematocrit [Volume Fraction] of Blood by Automated count34.0-46.4FLima Memorial Hospital Hemoglobin [Mass/volume] in BloodOrdered By: Apryl Cardenas on 09-08-2024 Hemoglobin (Bld) [Mass/Vol]Hemoglobin [Mass/volume] in Blood11.8-15.4FLima Memorial HospitalINR in Platelet poor plasma by Coagulation assayOrdered By: Apryl Cardenas on 00-15-5923KHG Coag (PPP) [Relative time]INR in Platelet poor plasma by Coagulation assayVeterans Health AdministrationComment on above:INR Therapeutic Range A) Pre- and Peroperative OAT started two weeks before surgery. NOT HIP SURGERY: 1.5 - 2.5 HIP SURGERY: 2 - 3B) Primary and secondary prevention of venous THROMBOSIS: 2 - 3C) Active venous thrombosis, pulmonary embolismand prevention of recurrent venous thrombosis: 2 - 3D) Prevention of arterial thromboembolismincluding patients with mechanical heart valves: 3 - 4.5 Leukocytes [#/volume] corrected for nucleated erythrocytes in Blood by Automated counOrdered By: Apryl Cardenas on 70-53-2767SLA corrected for nucl RBC Auto (Bld) [#/Vol]Leukocytes [#/volume] corrected for nucleated erythrocytes in Blood by Automated coun3.8-11.6FLima Memorial HospitalLymphocytes Auto (Bld) [#/Vol]Ordered By: Apryl Cardenas on 41-57-3411Vbodcilgfvh (Bld) [#/Vol] Lymphocytes [#/volume] in Blood by Automated count1.00-4.8V[facility] Health AdministrationLymphocytes/100 WBC Auto (Bld)Ordered By: Apryl Ly on 35-41-4646Pddorgxomhu/100 WBC (Bld)Lymphocytes/100 leukocytes in Blood by Automated count.[facility] Health AdministrationMCH Auto (RBC) [Entitic mass] Ordered By: Apryl Ly on 68-17-3622JEE (RBC) [Entitic mass]MCH [Entitic mass] by Automated count24.7-34.3FLima Memorial HospitalMCHC Auto (RBC) [Mass/Vol]Ordered By: Apryl Ly on 49-67-9933MBKH (RBC) [Mass/Vol]MCHC [Mass/volume] by Automated count32.0-35.0[facility] Health AdministrationMCV Auto (RBC) [Entitic vol]Ordered By: Apryl Ly on 01-94-6828ZNF (RBC) [Entitic vol]MCV [Entitic volume] by Automated ywuqa51-713YsqbdiyqpVeterans Health AdministrationMonocytes Auto (Bld) [#/Vol]Ordered By: Apryl Ly on 09-08-2024 Monocytes (Bld) [#/Vol]Automated blood monocyte count0.0-0.8[facility] AdministrationMonocytes/100 WBC Auto (Bld)Ordered By: Apryl Ly on 09-08-2024 Monocytes/100 WBC (Bld)Automated monocyte %.[facility] Neutrophils Auto (Bld) [#/Vol]Ordered By: Apryl Ly on 91-59-4794Lrplrrdciep (Bld) [#/Vol]Neutrophils [#/volume] in Blood by Automated count1.8-7.7FLima Memorial HospitalNeutrophils/100 WBC Auto (Bld)Ordered By: Apryl Ly on 29-66-9873Uigcwiwqiej/100 WBC (Bld)Automated neutrophil %.[facility] Health AdministrationNucleated erythrocytes [Presence] in Blood by Automated count Ordered By: Apryl Ly on 30-97-7008Gphgqodfz RBC Auto Ql (Bld)Nucleated erythrocytes [Presence] in Blood by Automated count0-0.5FLima Memorial HospitalPartial Thromboplastin Timeon 07-46-3905hKPM Coag (Bld) [Time]30.4 eWbmbmp55.1-36.5The [facility] Physician GroupComment on above:Result Comment: A hematocrit value greater than 55% may lead to inaccurate results in coagulation testing. Patients having hematocrit values >55% require a special collection tube for coagulation studies. Please contact the laboratory at [phone] for redraw instructions. PERFORMED BY: [address] [address] PATHOLOGIST RESEARCH STATISTICIAN LILY CHRISTIANSON M.D.Performed By: #### PTT, PT #### [facility] [address] [place], [place] [id number] USAPlatelet mean volume Auto (Bld) [Entitic vol]Ordered By: Apryl Cardenas on 31-67-5718Subaljfk mean volume (Bld) [Entitic vol]Platelet mean volume [Entitic volume] in Blood by Automated count6.3-10.7FLima Memorial HospitalPlatelets Auto (Bld) [#/Vol]Ordered By: Apryl Cardenas on 09-08-2024 Platelets (Bld) [#/Vol]Platelets [#/volume] in Blood by Automated qxzoq233-682 [facility] AdministrationProthrombin Time INRon 07-97-5207NPL Coag (PPP) [Relative time]1.2 {INR}NormalThe [facility] Physician GroupComment on above: Result Comment: INR Therapeutic Range [...] patients with mechanical heart valves: 3 - 4.5Performed By: #### PTT, PT #### [facility] [address] [place] [address] USAPT Coag (PPP) [Time]13.5 sHigh9.0-12.9The [facility] Physician GroupComment on above:Result Comment: A hematocrit value greater than 55% may lead to inaccurate results in coagulation testing. Patients having hematocrit values >55% require a special collection tube for coagulation studies. Please contact the laboratory at [phone] for redraw instructions.Performed By: #### PTT, PT #### [facility] [address] [place] [id number] USAProthrombin time (PT)Ordered By: Apryl Cardenas on 14-41-3416FJ Coag (PPP) [Time]Prothrombin time (PT)High9.0-12.9[facility] Health AdministrationComment on above:A hematocrit value greater than 55% may lead to inaccurate results in coagulation testing. Patientshaving hematocrit values >55% require a special collection tube for coagulation studies. Please c ontact the laboratory at [phone] for redraw instructions.RBC Auto (Bld) [#/Vol]Ordered By: Apryl Cardenas on 69-17-5700ZKH (Bld) [#/Vol]Erythrocytes [#/volume] in Blood by Automated count3.60-5.00[facility] WBC Auto (Bld) [#/Vol]Ordered By: Apryl Cardenas on 20-45-4104KCR (Bld) [#/Vol] Leukocytes [#/volume] in Blood by Automated count3.8-11.6FLima Memorial HospitalaPTT in Platelet poor plasma by Coagulation assayOrdered By: Apryl Cardenas on 55-69-4991tZSJ Coag (PPP) [Time]Activated partial thromboplastin time (aPTT) in platelet poor plasma by coagulation a25.1-36.5FLima Memorial HospitalComment on above:A hematocrit value greater than 55% may lead to inaccurate results in coagulation testing. Patientshaving hematocrit values >55% require a special collection tube for coagulation studies. Please contact the laboratory at [phone] for redraw instructions.COVID Cepheidon 09-02-2024 SARS-CoV-2 (COVID-19) RNA DAVIDSON+probe Ql (Unsp spec)COVID CepheidVeterans Health AdministrationLaboratory - Microbiology and Antimicrobial susceptibilityon 46-66-6070OJBH-CoV-2 (COVID-19) RNA DAVIDSON+probe Ql (Unsp spec) NegativeVeterans Health AdministrationNo Panel Informationon 51-64-3982TVM Influenza A (PCR)NegativeVeterans Health AdministrationPO Influenza B (PCR) NegativeVeterans Health AdministrationMM TOMOSYNTHESIS SCREENING BIon 18-41-7356[place] [address] Mammography Report Signed Patient: Elicia Dent MR#: [id number] : 1950 Acct:[id number] Age/Sex: 73 / F ADM Date: 05/31/24 Loc: MAMMO Attending Dr: KYLE ALMENDAREZ Ordering Physician: KYLE ALMENDAREZ Results: Date of Service: 05/31/24 Follow Up: Procedure(s): MM tomosynthesis screening BI Accession Number(s): [id number] cc: KYLE ALMENDAREZ Patient Name: ELICIA DENT MR#: [id number] : 1950 Exam Date: 05/31/2024 Ordering Doctor: DR KYLE ALMENDAREZ M.D. RADIOLOGY REPORT PROCEDURE: MM TOMOSYNTHESIS SCREENING BI COMPARISON: MM TOMOSYNTHESIS SCREENING BI, 05/27/2023. MG MAMM SCREEN 3D ROBERT CAD, 05/26/2022. INDICATIONS: Screening Calculator Name NCI [...] colon cancer at age 69. LOCATION: [facility] BREAST COMPOSITION: There are scattered areas of fibroglandular density. FINDINGS: DIAGNOSTIC CATEGORY 2--BENIGN FINDING. NO CHANGE FROM COMPARISON. Scattered benign-appearing nodules are present. Scattered benign-appearing calcifications are present. Scattered benign-appearing lymph nodes are present. RIGHT BREAST: No significant suspicious finding. Stable micro clip marker upper outer quadrant, posterior breast LEFT BREAST: No significant suspicious finding. Stable micro clip marker upper outer quadrant, mid breast RECOMMENDATIONS: ROUTINE MAMMOGRAM AND CLINICAL EVALUATION IN 12 MONTHS. PLEASE NOTE: A NORMAL MAMMOGRAM DOES NOT EXCLUDE THE POSSIBILITY OF BREAST CANCER. A CLINICALLY SUSPICIOUS PALPABLE LUMP SHOULD BE BIOPSIED. Dictated by: Ke Fernández MD on 06/01/2024 at 08:20 Approved by: Ke Fernández MD on 06/01/2024 at 08:21 Dictated By: Ke Fernández M.D. Signed By: 06/01/24821 DD/ 0 TD/TT: Upholstery Parts Sorter:TBHRadiology, Radiologist, - 06/01/2024 [place] [address] Mammography Report Signed Patient: Elicia Dent MR#: [id number] : 1950 Acct:[id number] Age/Sex: 73 / F ADM Date: 05/31/24 Loc: MAMMO Attending Dr: KYLE ALMENDAREZ Ordering Physician: KYLE ALMENDAREZ Results: Date of Service: 05/31/24 Follow Up: Procedure(s): MM tomosynthesis screening BI Accession Number(s): [id number] cc: KYLE ALMENDAREZ Patient Name: ELICIA DENT MR#: [id number] : 1950 Exam Date: 05/31/2024 Ordering Doctor: DR KYLE ALMENDAREZ M.D. RADIOLOGY REPORT PROCEDURE: MM TOMOSYNTHESIS SCREENING BI COMPARISON: MM TOMOSYNTHESIS SCREENING BI, 05/27/2023. MG MAMM SCREEN 3D ROBERT CAD, 05/26/2022. INDICATIONS: Screening Calculator Name NCI Breast Cancer Risk Assessment Tool 5 Year Breast Cancer Risk n/a% Lifetime Breast Cancer Risk n/a% Personal Breast Cancer Yes, Left breast cancer 2002 Personal Ovarian Cancer No Treatments Pt. had [...] colon cancer at age 69. LOCATION: [facility] BREAST COMPOSITION: There are scattered areas of fibroglandular density. FINDINGS: DIAGNOSTIC CATEGORY 2--BENIGN FINDING. NO CHANGE FROM COMPARISON. Scattered benign-appearing nodules are present. Scattered benign-appearing calcifications are present. Scattered benign-appearing lymph nodes are present. RIGHT BREAST: No significant suspicious finding. Stable micro clip marker upper outer quadrant, posterior breast LEFT BREAST: No significant suspicious finding. Stable micro clip marker upper outer quadrant, mid breast RECOMMENDATIONS: ROUTINE MAMMOGRAM AND CLINICAL EVALUATION IN 12 MONTHS. PLEASE NOTE: A NORMAL MAMMOGRAM DOES NOT EXCLUDE THE POSSIBILITY OF BREAST CANCER. A CLINICALLY SUSPICIOUS PALPABLE LUMP SHOULD BE BIOPSIED. Dictated by: Ke Fernández MD on 06/01/2024 at 08:20 Approved by: Ke Fernández MD on 06/01/2024 at 08:21 Dictated By: Ke Fernández M.D. Signed By: 06/01/24821 DD/ 0 TD/TT: Upholstery Parts Sorter: [facility] CenterRadiology Study observation (narrative)[facility] TOMOSYNTHESIS SCREENING BIOrdered By: Radiologist Radiology on 98-50-3495[facility] Work Phone: alanine aminotransferase [Enzymatic activity/volume] in Serum or PlasmaOrdered By: Quita Hall on 57-35-1841IPM [Catalytic activity/Vol]13 U/L7-52Veter[facility] Health AdministrationAlbumin [Mass/volume] in Serum or Plasma by Bromocresol green (BCG) dye binding methoOrdered By: Quita Hall on 93-39-4443Njathat BCG dye [Mass/Vol]4.2 g/dL3.5-5.7FLima Memorial HospitalAlkaline phosphatase [Enzymatic activity/volume] in Serum or PlasmaOrdered By: Quita Hall on 92-61-1021MUB [Catalytic activity/Vol]61 U/L 34-104Veterans Health AdministrationAspartate aminotransferase [Enzymatic activity/volume] in Serum or PlasmaOrdered By: Quita Hall on 56-69-6560IHV [Catalytic activity/Vol]19 U/Y34-95TeawtocxhVeterans Health AdministrationBasophils Auto (Bld) [#/Vol]Ordered By: Quita Hall on 71-28-5065Rxnysnmnb (Bld) [#/Vol] 0.1 10*3/uL0.0-0.2FLima Memorial HospitalBasophils/100 WBC Auto (Bld) Ordered By: Quita Hall on 55-99-6808Hsozpqvhz/100 WBC (Bld)1.0 %.V[facility] Health AdministrationBilirubin.total [Mass/volume] in Serum or PlasmaOrdered By: Quita Hall on 89-97-8754Qtzmrrfds [Mass/Vol]0.4 mg/dL0.3-1.0V[facility] Health AdministrationCalcium [Mass/volume] in Serum or PlasmaOrdered By: uQita Hall on 00-55-0627Gtyxegz [Mass/Vol]9.4 mg/dL8.6-10.3FLima Memorial HospitalCarbon dioxide, total [Moles/volume] in Serum or PlasmaOrdered By: Quita Hall on 91-57-3008PH7 [Moles/Vol]34.6 mmol/LHigh21.0-31.0V[facility] Health AdministrationChloride [Moles/volume] in Serum or PlasmaOrdered By: Quita Hall on 73-13-6196Pvqtijac [Moles/Vol]104 mmol/O62-006NejogwkjsVeterans Health AdministrationCreatinine [Mass/volume] in Serum or PlasmaOrdered By: Quita Hall on 02-65-1975Jbygzxufoj [Mass/Vol]1.17 mg/dL0.60-1.20V[facility] Health AdministrationEosinophils Auto (Bld) [#/Vol]Ordered By: Quita Hall on 92-79-3411Zxdssypxdcd (Bld) [#/Vol]0.1 10*3/uL0.0-0.45V[facility] Health AdministrationEosinophils/100 WBC Auto (Bld)Ordered By: Quita Hall on 03-28-2024 Eosinophils/100 WBC (Bld)1.6 %.[facility] Health AdministrationErythrocyte distribution width Auto (RBC) [Ratio]Ordered By: Quita Hall on 03-28-2024 Erythrocyte distribution width (RBC) [Ratio]13.8 %11.9-15.3FLima Memorial HospitalGlobulin Calc (S) [Mass/Vol]Ordered By: Quita Hall on 03-28-2024 Globulin (S) [Mass/Vol]2.1 g/dLVeterans Health AdministrationGlucose [Mass/volume] in Serum or PlasmaOrdered By: Quita Hall on 05-13-2437Mbqbtsp [Mass/Vol]78 mg/qR45-321LtyqlingnVeterans Health AdministrationComment on above:ADA recommended reference rangeRandom Glucose Reference Range is dependent on time and content of last meal. Glucose of more than 200 mg/dL in a nonstressed, ambulatory subject supports the diagnosisof Diabetes Mellitus.Hematocrit Auto (Bld) [Volume fraction]Ordered By: Quita Hall on 03-70-9250Bqankytmis (Bld) [Volume fraction]38.5 %34.0-46.4FLima Memorial HospitalHemoglobin [Mass/volume] in BloodOrdered By: Quita Hall on 53-43-7007Bwxfyaglyu (Bld) [Mass/Vol]13.0 g/dL11.8-15.4FLima Memorial HospitalLeukocytes [#/volume] corrected for nucleated erythrocytes in Blood by Automated coun Ordered By: Quita Hall on 68-05-7800NVI corrected for nucl RBC Auto (Bld) [#/Vol]6.4 10*3/uL3.8-11.6FLima Memorial HospitalLymphocytes Auto (Bld) [#/Vol]Ordered By: Quita Hall on 88-56-0894Xapdgcamcqc (Bld) [#/Vol]2.0 10*3/uL1.00-4.8V[facility] Health AdministrationLymphocytes/100 WBC Auto (Bld) Ordered By: Quita Hall on 29-06-8810Yxswgfcdpdx/100 WBC (Bld)31.5 %.[facility] Auto (RBC) [Entitic mass]Ordered By: Quita Hall on 27-23-7833QVB (RBC) [Entitic mass]31.7 pg24.7-34.3FLima Memorial HospitalMCHC Auto (RBC) [Mass/Vol]Ordered By: Quita Hall on 87-31-4838AGDP (RBC) [Mass/Vol]33.9 g/dL32.0-35.0V[facility] Health AdministrationMCV Auto (RBC) [Entitic vol]Ordered By: Quita Hall on 92-21-5402JZG (RBC) [Entitic vol]93.6 bD33-972OfbtrajkzVeterans Health AdministrationMonocytes Auto (Bld) [#/Vol]Ordered By: Quita Hall on 68-89-5365Aenkllhne (Bld) [#/Vol]0.6 10*3/uL0.0-0.8V[facility] AdministrationMonocytes/100 WBC Auto (Bld)Ordered By: Quita Hall on 91-22-3512Xloohgdpe/100 WBC (Bld)9.7 %.[facility] Neutrophils Auto (Bld) [#/Vol]Ordered By: Quita Hall on 26-23-1278Shgwzzaniiy (Bld) [#/Vol]3.6 10*3/uL1.8-7.7FLima Memorial HospitalNeutrophils/100 WBC Auto (Bld)Ordered By: Quita Hall on 92-54-8910Wvgngarhirf/100 WBC (Bld) 56.2 %.[facility] Health AdministrationNo Panel InformationOrdered By: Quita Hall on 82-62-8350Xugcxkkkh GFR (CKD-EPI)48.966 mL/MinVeterans Health AdministrationPharmacy Creatinine Clearance (ChemN/AFLima Memorial HospitalNucleated erythrocytes [Presence] in Blood by Automated countOrdered By: Quita Hall on 98-24-3082Rkvkbmwex RBC Auto Ql (Bld)0.2 /100{WBC}0-0.5FLima Memorial HospitalPlatelet mean volume Auto (Bld) [Entitic vol]Ordered By: Quita Hall on 21-95-9398Dgtcssvm mean volume (Bld) [Entitic vol]8.5 fL6.3-10.7 [facility] Health AdministrationPlatelets Auto (Bld) [#/Vol]Ordered By: Quita Hall on 27-84-9908Mazyvrhfl (Bld) [#/Vol]219 10*3/lP067-267QklpcnjsoVeterans Health AdministrationPotassium [Moles/volume] in Serum or PlasmaOrdered By: Quita Hall on 09-61-3068Aypbhzkof [Moles/Vol]4.3 mmol/L3.5-5.1FLima Memorial HospitalProtein [Mass/volume] in Serum or PlasmaOrdered By: Quita Hall on 36-38-3140Gwizxws [Mass/Vol]6.3 g/dLLow6.4-8.9V[facility] Health AdministrationRBC Auto (Bld) [#/Vol]Ordered By: Quita Hall on 35-56-6049ROQ (Bld) [#/Vol]4.11 10*6/uL3.60-5.00Pomerene Hospitalerum or plasma albumin/globulin mass ratioOrdered By: Quita Hall on 03-28-2024 Albumin/Globulin [Mass ratio]2.0 {ratio}Pomerene Hospitalerum or plasma anion gap determinationOrdered By: Quita Hall on 90-73-6301Emjte gap [Moles/Vol]7.7 mmol/L6.0-15.0Pomerene Hospitalodium [Moles/volume] in Serum or PlasmaOrdered By: Quita Hall on 00-57-3554Angjxb [Moles/Vol]142 mmol/G155-099BowjdkslsVeterans Health AdministrationUrea nitrogen [Mass/volume] in Serum or PlasmaOrdered By: Quita Hall on 12-18-5903Tctz nitrogen [Mass/Vol]28 mg/dLHigh7-25Veterans Health AdministrationWBC Auto (Bld) [#/Vol]Ordered By: Quita Hall on 04-73-9811CBR (Bld) [#/Vol]6.4 10*3/uL 3.8-11.6FLima Memorial HospitalCreatinine (Bld) [Mass/Vol]Ordered By: Eriberto Davis on 61-23-9060Iyzqobbsgq [Mass/Vol]1.1 mg/dL0.6-1.3FLima Memorial HospitalComment on above:ER/ESD physician is notified/shown all ISTAT results.Critical values may be confirmed by laboratorytesting ifdeemed necessary by ER attending doctor.No Panel InformationOrdered By: Eriberto Davis on 03-05-2024 Bedside Estimated GFR (eGFR)52.728Veterans Health AdministrationXR lumbar spine 6V w bendingon 21-07-2828KT lumbar spine 6V w bendingUniversity Hospitals Conneaut Medical Center [employer] Other XR lumbar spine 6V w bendingKaiser Permanente Medical Center [employer] Other XR lumbar spine 6V w vzldvfm6902 [facility] [employer] Other XR lumbar spine 6V w bendingK[place], [place] [address]Dhrlf [employer] Other XR lumbar spine 6V w bendingXRBaptist Health Homestead Hospital [employer] Other XR lumbar spine 6V w bendingSiCapital Region Medical Center [employer] Other XR lumbar spine 6V w bendingPatient: Elicia Dent MR#: [id number] [employer] Other XR lumbar spine 6V w chgoodc1Hqezl [employer] Other XR lumbar spine 6V w bendingDOB: 1950 Acct:[id number] [employer] Other XR lumbar spine 6V w bendingAge/Sex: 72 / F ADM Date: 06/22/23[place]amon [employer] Other XR lumbar spine 6V w bendingLoc: XD Room: Type: [facility] SYSTEMPixim Other XR lumbar spine 6V w bendingAttending Dr: Farnaz Gonzalez [facility] HOSPITALConkwest Other XR lumbar spine 6V w bendingCopies to: Farnaz Gonzalez NPConkwest Other XR lumbar spine 6V w bendingOrdering Provider: Farnaz Gonzalez NP-[employer] Other XR lumbar spine 6V w bendingDate of Service: 06/22/23 [employer] Other XR lumbar spine 6V w bendingAccession #: ([id number]) XR/XR lumbar spine 6V w bending: M51.36Bayamon [employer] Other XR lumbar spine 6V w bendingXR lumbar spine 6V w bending 06/22/2023 11:15 AMNbates county memorial hospital [employer] Other XR lumbar spine 6V w bendingSIGNS AND SYMPTOMS: Low back pain with pain in the sacrum. Numbness and tingling in lowerBayamon [employer] Other XR lumbar spine 6V w bendingextremities with painBayamon [employer] Other xr lumbar spine 6V w bendingPROTOCOLS: Frontal, lateral, and flexion-extension views of the lumbar spineBayamon [employer] Other XR lumbar spine 6V w bendingCOMPARISON: 11/15/2020[place] [employer] Other xr lumbar spine 6V w bendingFINDINGS:[employer] Other XR lumbar spine 6V w bendingThere is similar posterior fusion from L2 through L5. Vertebral body heights are preserved. There isBarnes-Jewish West County HospitalAzaire Networks Other XR lumbar spine 6V w bendingmild disc height loss at T11-T12 with anterior osteophyte formation. There is no fracture,[employer] Other XR lumbar spine 6V w bendingsubluxation, or pathologic movement. No hardware complication. There is evidence of priorBayamon [employer] Other XR lumbar spine 6V w bendingcholecystectomy. The sacrum and sacroiliac joints are normal.[employer] Other XR lumbar spine 6V w bendingORDER #: [id number] XR/XR lumbar spine 6V w bendingBayamon [employer] Other xr lumbar spine 6V w bendingIMPRESSION:[employer] Other xr lumbar spine 6V w bendingUnchanged posterior fusion L2-L5.[employer] Other xr lumbar spine 6V w bendingNo pathologic movement on flexion or extension.[employer] Other xr lumbar spine 6V w bendingImpression dictated by: Jonathan Patiño M.D.06/22/2023 2:44 PMNbates county memorial hospital [employer] Other xr lumbar spine 6V w bendingDictation Location: [address] [employer] Other xr lumbar spine 6V w bendingTranscribed By: [facility] 06/22/[address] [place] [address] [employer] Other xr lumbar spine 6V w bendingDictated By: Jonathan Patiño II, MD 06/22/[address] [place] [address] [employer] Other xr lumbar spine 6V w bendingSigned By:[employer] Other xr lumbar spine 6V w ubszuwf22/11/23 [facility] HospitalEaspring Material Technology Other physician Orderon [id number] Order [id number]#[id number]:127NoParkview Health Bryan HospitalPostoperative Documentson 69-73-9060Nsmcesksrkokg Documents [id number]#[id number]:127NoParkview Health Bryan HospitalOperative Reporton [id number] ReportSURGERY DATE: 09/25/2022 PREOPERATIVE DIAGNOSIS: Left internal nasal lesion POSTOPERATIVE [...] induction of general endotracheal anesthesia, the left nosewas approached with a nasal endoscope. Under endoscopic guidance, her hemangioma in the left anterior inferior turbinate was cauterized completely. The examination of the remainder of the nose revealed no other significant abnormalities. The antibiotic ointment was then placed in the left nose. Thepatient was then awakened and taken to the Recovery Room in good condition. Cathie Gomez Jr., M.D. Dictated: 09/25/2022 [id number] Transcribed: 09/25/2022[facility] General Health CenterComment on above:Result Comment: Electronically Signed By: Patricia YANG, Cathie Martines\.br\Date and Time Signed: 10/02/22 09:24 EDTCoding Summary.on 98-69-5038Oovkkm Summary. CD:007165HU:[id number]+PGhlYWQ+XT8LTEPgE29kwCKtrB0tJ6QBTPyHAuqvFYUNSRxMAyQgi kXuWJ9ncBRnIOKj [file] c2U6 (more content not included)...[facility] CenterCoding Summary.on 38-13-7738Aeglor Summary. CD:178440EW:[id number]+PGhlYWQ+EF8XUOMcG51fyEAltA2vA3CVPQxFGhgjOWPYOGdJZtRsc eQkOE0krLObMFVq [file] bGU9 (more content not included)...[facility] IntraOperative Documentson 47-60-8652CsrlhDxkuqhbog Documents [id number]#1.00CD:127[facility] CenterConsent for Anesthesiaon 34-34-1400Ioqxwzu for Anesthesia [id number]#1.00CD:127[facility] CenterDischarge Instructionson 14-36-2870Esvezxnic Instructions [id number]#1.00CD:127NoParkview Health Bryan HospitalIntraOperative Documentson 85-98-5658JszkqUfpihiiog Documents [id number]#1.00CD:127NoParkview Health Bryan HospitalMain OR Intraoperative Recordon 36-58-0977Ehcj OR Intraoperative Record IntraOp Document Type FT Summary Primary Physician: Cathie Gomez MD Finalized Date/Time: 09/26/22 12:59:32 Pt. Name: JAILENEELICIA/Sex: 1950 Female Med Rec #: [id number] Physician: Cathie Gomez MD Financial #: [id number] Pt. Type: A Room/Bed: [place] [address] Admit/Disch: 09/25/22 08:47:29 - 09/25/22 13:25:00 Institution: [...] Castano Role Performed MAUDE Surgeon - Primary Bread Room Hand - Primary Time In 09/25/22 11:06:00 09/25/22 11:06:00 09/25/22 11:06:00 Time Out 09/25/22 11:38:00 09/25/22 11:38:00 09/25/22 11:38:00 Procedure NASAL ENDOSCOPY(Left), NASAL ENDOSCOPY(Left), NASAL ENDOSCOPY(Left), NASAL NASAL NASAL CAUTERIZATION(Left) CAUTERIZATION(Left) CAUTERIZATION(Left) Comments DR KOLB ASSISTING Last Modified By: Fiona De Souza CST, Terry T Sweene, Terry T 09/26/22 12:56:29 09/25/22 11:38:55 09/25/22 11:38:55 Entry 4 Entry 5 Case Attendee Javad Guzmán Jessica D Role Performed Staff - Other Scrub - Primary Time In 09/25/22 11:06:00 09/25/22 11:06:00 Time Out 09/25/22 11:38:00 09/25/22 11:38:00 Procedure NASAL ENDOSCOPY(Left), NASAL ENDOSCOPY(Left), NASAL NASAL CAUTERIZATION(Left) CAUTERIZATION(Left) Comments 2ND [employer] OPER[employer] Last Modified By: Javad Guzmán Terry T [...] and tissue Entry 1 Skin Integrity Intact, [place], Warm, and Skin Abnormality No Dry Outcomes Met? Yes Last Modified By: Javad Guzmán 09/25/22 11:14:01 Post-Care Text: The patient is free from signs and symptoms of injury caused by extraneous objects Patient Positioning FT Pre-Care T (more content not included)...[facility] Preoperative Documentson 72-24-2584Mqslxnaimmbt Documents [id number]#1.00CD:127NormalRegional Medical CenterPreoperative [id number]#1.00CD:127 [facility] CenterProgress Note-Physicianon 52-56-6287Xtatcrhj Note-PhysicianPatient: ELICIA DENT Age: 72 years Sex: Female [...] Discharge when meets criteria ( To home ).[facility] CenterComment on above:Result Comment: Electronically Signed By: Pavan Kolb Jr, DO\.br\Date and Time Signed: 09/26/22 14:14 EDTProgress Note-PhysicianPatient: ELICIA DENT Age: 72 years Sex: Female [...] list: All Problems Arthritis / SNOMED CT 6105877 / Confirmed Afib / SNOMED CT 01973181 / Confirmed Acid reflux / SNOMED CT 011936418 / Confirmed H/O neuropathy / SNOMED CT 0048844630 / Confirmed HTN (hypertension) / SNOMED CT 2411846729 / Confirmed Histories Past Medical History: No active or resolved past medical history items have been selected or recorded. Family History: No family history items have been selected or recorded. Procedure history: Tonsillectomy (098721740). Dilation and curettage (21277464). Appendectomy (533579066). History of hysterectomy (9387156332). Carpal tunnel release (927364172). Arthroscopy of knee (477567971). Breast reduction (267651770). Cholecystectomy (42852885). THR - Total hip replacement (283053248). THR - Total hip replacement (995795729). Back fusion C 5-6 (184083177). Back fusion L2-5 (088077219). Social History Social & Psychosocial Habits Alcohol [...] results Radiology results ECG interpretation Condition Plan [place] [employer] Anesthesiologists (ASA) physical status classification: Class II. Anesthetic Preoperative Plan Anesthesia: General. . Anesthetic plan, risks, benefits, and alternatives discussed with the patient and/or family. Risks discussed: nausea, vomiting, headache, sore throat, dental injury, serious complications. Patient verbalized understanding. Communication: face to face with (patient 5 minutes, Pt educated on the importance of smoking cessation.).[facility] CenterComment on above:Result Comment: Electronically Signed By: Pavan Kolb Jr, DO\Date and Time Signed: 09/26/22 14:14 EDTBUNon 70-85-3389Uhjc nitrogen [Mass/Vol]24 mg/dLHigh5-21Regional Medical CenterComment on above:Performed By: #### 7710291, 1627185, 04688255, 1931205, 1642334 ####Rodriguez [facility] [address] [place], [place] [address]HGPZPFBGIBhycguu By: Keypr SYSTEM on 09-25-2022 Anion gap [Moles/Vol]11 mmol/LNormal6 - 16 mEq/LFTMC RemisolChloride [Moles/Vol] 101 mmol/AHslesa133 - 111 mmol/LFTMC RemisolCO2 [Moles/Vol]29 mmol/ZRwuptt74 - 31 mmol/LFTMC RemisolCreatinine [Mass/Vol]0.8 mg/dLNormal0.5 - 1.3 mg/dLFTMC RemisolGFR/1.73 sq M.predicted among blacks MDRD (S/P/Bld) [Vol rate/Area] mL/min/1.73 x0Phwdjn>=59mL/min/1.73 m2FT Chem SGFR/1.73 sq M.predicted among non-blacks MDRD (S/P/Bld) [Vol rate/Area]mL/min/1.73 t3Ltxvie>=59mL/min/1.73 m2 [facility] Chem SGlucose post fast [Mass/Vol]96 mg/aANvzltl37 - 99 mg/dLFTMC Remisol Potassium [Moles/Vol]4.2 mmol/LNormal3.5 - 5.3 mmol/LFTMC RemisolSodium [Moles/Vol]137 mmol/UMfvzie831 - 145 mmol/LFTMC RemisolUrea nitrogen [Mass/Vol] 24 mg/dLHigh5 - 21 mg/dLFTMC RemisolCOAGULATIONOrdered By: Charity Crabtree on 52-59-9453rXMI Coag (PPP) [Time]29.4 yIcbhrh42.1 - 36.5 second(s)[facility] Auto Coag INR Coag (PPP) [Relative time]1.1 {INR}Invalid Interpretation CodeBROOKHAVEN [facility]OS[facility] Auto Coag PT Coag (PPP) [Time]12.0 sNormal9.4 - 12.5 second(s)[facility] Auto CoagConsent for Treatmenton 91-32-8455Lgrgixa for Treatment [id number]#1.00CD:127NoalRegional Medical CenterCreatinineon 19-73-4335Uojknjnpwi [Mass/Vol]0.8 mg/dLNormal0.5-1.3Fisher [facility] HospitalComment on above:Performed By: #### 8560117, 2633166, 56585385, 2053883, 4469164 ####[facility] [address] [place], [place] [address]Ljj Fastingon 89-45-7053Zbbhjhw [Mass/Vol]96 mg/dL Ppxdhr08-07VnbwigRegional Medical CenterComment on above:Performed By: #### 8345773, 7684433, 90384391, 5587652, 0478214 ####[facility] [address] [place], [place] [address]M&P Updateon 09-25-2022H&P Update [id number]#1.00CD:127NoParkview Health Bryan HospitalInpatient Patient Summaryon 65-67-6374Iexgweugj Patient Summary [address] [address] [facility] Clinical Discharge Instructions PERSON INFORMATION [...] Continue with No Changes Other Medications ascorbic acid/chondroitin/glucosa/humza (Glucosamine Chondroitin) 3 Capsules By Mouth every [...] (Zinc) 140 Milligram By Mouth every day. Comment:NormalRegional Medical CenterLyteson 32-84-4411Xxtxk gap [Moles/Vol] 11 mmol/LNormal6-16Regional Medical CenterComment on above:Performed By: #### 2487545, 3072674, 41922132, 9567481, 1116117 ####[facility] [address] [place], [place] [address]Rrpsgzga [Moles/Vol]101 mmol/L Pwshcn852-103PfqtosRegional Medical CenterComment on above:Performed By: #### 1182406, 3195358, 31428046, 1324970, 9670199 ####[facility] [address] [place], [place] [address]BC1 [Moles/Vol]29 mmol/RVnwghc28-25 Regional Medical CenterComment on above:Performed By: #### 0162090, 2782874, 06555603, 5376906, 4565319 ####Rodriguez [facility] [address] [place], [place] [address]Ffipvndeb [Moles/Vol]4.2 mmol/LNormal3.5-5.3Fisher [facility] Harbor HospitalComment on above:Performed By: #### 4908754, 1501199, 74873924, 3410720, 1797614 ####Michael [facility] [address] [place], [place] [address]Nocqmr [Moles/Vol]137 mmol/UPochod208-670Ijqixf [facility] HospitalComment on above:Performed By: #### 4727822, 6166408, 45247972, 7168567, 8840094 ####[facility] [address] [place], [place] [address]Guqu OR PACU I Recordon 15-13-1973Nygf OR PACU I RecordPACU Phase I Document Type FT Summary Primary Physician: Cathie Gomez MD Finalized Date/Time: 09/25/22 12:15:53 Pt. Name: ELICIA DENT/Sex: 1950 Female Med Rec #: [id number] Physician: Cathie Gomez MD Financial #: [id number] Pt. Type: A Room/Bed: [place] [address] Admit/Disch: 09/25/22 08:47:29 - Institution: Case Times [...] individualized perioperative plan of care The patient's rightto privacy is maintained The patient's value system, [...] with or improved from baseline levels established preoperativelyThe patient's cardiovascular status is consistent with or improved from baseline levels established preoperatively The patient's cardiovascular status is consistent with or improved from baseline levels established preoperatively The patient demonstrates and/or reports adequate pain control throughout the perioperative period The patient received appropriate medication(s), safely administered during the perioperativeperiod Acuity Level PACU I FT Entry 1 Start Time 09/25/22 11:39:00 Stop Time 09/25/22 12:09:00 Acuity Level Acuity Level I Last Modified By: Tatiana Cruz RN 09/25/22 12:15:49 Finalized By: Tatiana Cruz RN Document Signatures Signed By: Tatiana Cruz RN 09/25/22 12:15NormalRegional Medical CenterMain OR PACU II Recordon 61-70-7737Lutn OR PACU II RecordPACU Phase II Document Type FT Summary Primary Physician: Cathie Gomez MD Finalized Date/Time: 09/25/22 13:40:07 Pt. Name: ELICIA DENT/Sex: 1950 Female Med Rec #: [id number] Physician: Cathie Gomez MD Financial #: [id number] Pt. Type: A Room/Bed: [place] [address] Admit/Disch: 09/25/22 08:47:29 - Institution: Case Times [...] and monitors body temperature Evaluates postoperative respiratory statusEvaluates postoperative cardiac status Evaluates postoperative neurological status [...] individualized perioperative plan of care The patient's rightto privacy is maintained The patient's value system, [...] with or improved from baseline levels established preoperativelyThe patient's cardiovascular status is consistent with or improved from baseline levels established preoperatively The patient's neurological status is consistent with or improved from baseline levels established preoperatively The patient demonstrates and/or reports adequate pain control throughout the perioperative period The patient received appropriate medication(s), safely administered during the perioperativeperiod Finalized By: Milena Neff RN Document Signatures Signed By: Milena Neff RN 09/25/22 13:40[facility] CenterMonitor Recordon 57-45-2667Mjyxiqk Record [id number]#1.00CD:127NoParkview Health Bryan HospitalOutpatient Surgery Discharge Instructionon 25-23-0344Idehqltcfb Surgery Discharge Instruction [facility] [address] [place], [place] [address] Patient Discharge Instructions PERSON INFORMATION Name: ELICIA DENT Date of : 1950 Current Date: 09/25/2022 12:53:19 PHYSICIANS Admitting Physician: Patricia YANG, Cathie Martines Discharge Diagnosis: Internal nasal lesion ELICIA DENT [...] when discharge instructions were given Patient Signature Date Clinican/Nurse Signature Date Follow up: With: Address: When: Cathie Gomez Comments: As needed Pharmacy Information: You may receive a survey from [employer] asking you to rate your care experience. Your feedback is important and will help us understand what we do well and how we can improve the quality of care we provide to you, your loved ones and our community. It?s an honor to serve you. Thank you for choosing [facility] HERE ARE THE MEDICATION CHANGES THAT OCCURRED DURING YOUR HOSPITAL STAY Medications to Continue with No Changes Other Medications ascorbic acid/chondroitin/glucosa/humza (Glucosamine Chondroitin) 3 Capsules By Mouth every [...] at home: Medicines ? Take or use mzue-jsw-gkubbdy and prescription medicines only as told by [...] or tobacco, such as cigarettes and e-cigarettes. Ifyou need help quitting, ask your health care [...] discomfort that does not get better with dvzc-lgq-snpefgn medicine. ? You have a fever. ? You have more clear fluid or blood coming from your no (more content not included)...NormalFisher Medstar Harbor HospitalPT & PTTon 85-98-9799rAUD Coag (PPP) [Time]29.4 second(s)Vuaqmp19.1-36.5Fisher [facility] HospitalComment on above:Result Comment: Parameter 15 days - 4 weeks 1 - [...] the same coagulation reagent and instrumentation as [facility]. Currently there are no coagulation studies available worldwide for children to 14 days, andno normal ranges. Heparin therapeutic range (represented by Anti-Factor Xa activity of 0.2 - 0.4 U/mL) corresponds to PTT of 56.6 - 109.0 sec.Performed By: #### [id number] ####Michael [facility] [address] [place], [place] [address]RPW Coag (PPP) [Relative time]1.1 {INR}Invalid Interpretation CodeMichael [facility]star Harbor HospitalComment on above:Result Comment: INR results are specifically intended to assess patients stabilized on long-term Anticoagulation therapy suggested INR?s ?Less Intensive Anticoagulation? 2.0 ? 3.0 Conventional Range 3.0 ? 4.5Performed By: #### [id number] ####Michael [facility] [address] [place], [place] [address]PO Coag (PPP) [Time]12.0 second(s)Normal9.4-12.5Fisher [facility] Harbor HospitalComment on above:Result Comment: 15 days - 4 weeks 1 - [...] the same coagulation reagent and instrumentation as [facility]. Currently there are no coagulation studies available worldwide for children to 14 days, andno normal ranges.Performed By: #### [id number] ####Michael [facility] [address] [place], [place] [address]Pohghkw Education - Texton 09-25-2022 Patient Education - Text ENT Sinus [...] at home: Medicines ? Take or use jcmq-niu-wrybppw and prescription medicines only as told by [...] or tobacco, such as cigarettes and e-cigarettes. Ifyou need help quitting, ask your health care [...] discomfort that does not get better with wbjg-bbb-hmuuryg medicine. ? You have a fever. ? [...] or tobacco, such as cigarettes and e-cigarettes. Ifyou need help quitting, ask your health care provider. This information is not intended to replace advice given to you by your health care provider. Make sure you discuss any questions you have with your health care provider. Document Released: 11/13/2017 Document Revised: 10/21/2019 Document Reviewed: 11/13/2017 Elsevier Patient Education ? 2019 [employer].[facility] eGFRon 32-82-8240LWZ/1.73 sq M.predicted among blacks MDRD (S/P/Bld) [Vol rate/Area]mL/min/{1.73_m2}Normal>=59Regional Medical CenterComment on above: Order Comment: Order added by Discern Expert.Result Comment: eGFR is race adjusted. AA=.Performed By: #### 7010808, 2618149, 36541605, 6310058, 8692216 ####[facility] [address] [place], [place] [address]HFB/1.73 sq M.predicted among non-blacks MDRD (S/P/Bld) [Vol rate/Area]mL/min/{1.73_m2}Normal>=59Regional Medical CenterComment on above:Order Comment: Order added by Kelsie Expert.Result Comment: Chronic kidney disease could be indicated at eGFR's of less than 60 mL/min/1.73m2. K idney failure is indicated at less than 15 mL/min/1.73m2.Performed By: #### 2066801, 0575762, 57814976, 4684748, 9126802 ####[facility] [address] [place], [place] [address]Xnlamoh for Procedure/Surgeryon 76-13-7140Iubxtyk for Procedure/Surgery [id number]#1.00CD:127NormTrumbull Memorial HospitalPhysician Orderon 93-76-0905Wzfllbzoi Order [id number]#1.00CD:127NormTrumbull Memorial HospitalAuto Diffon 62-93-6950Kgtgbvgfh/100 WBC (Bld)0.8 %Normal0.0-2.0Regional Medical CenterComment on above:Order Comment: Order Added by Discern Expert.Performed By: #### 26111116, 8337056, 5902573 ####[place] [address] [place], [place] [address]Ijddqzdmr/Leukocytes Auto (Bld) [Pure # fraction]0.1 E9/LNormal0.0-0.2FLancaster Municipal HospitalComment on above:Order Comment: Order Added by Discern Expert.Performed By: #### 79834429, 3694809, 5858418 ####[address] [address]Jutsmiyekyu/100 WBC (Bld)1.0 %Normal0.0-8.0Regional Medical CenterComment on above:Order Comment: Order Added by Discern Expert.Performed By: #### 28212964, 0938576, 0580518 ####[address] [address]Buoevxtnhow/Leukocytes Auto (Bld) [Pure # fraction]0.1 E9/LNormal0.0-0.5FLancaster Municipal HospitalComment on above:Order Comment: Order Added by Discern Expert.Performed By: #### 36915970, 1876829, 4376563 ####[address] [address]Turusmmokze/100 WBC (Bld)29.6 %Ukyxhg03.0-50.0 Regional Medical CenterComment on above:Order Comment: Order Added by Discern Expert.Performed By: #### 50976043, 8884267, 5517220 ####[address] [address]Wdyzzrrdxzx/Leukocytes Auto (Bld) [Pure # fraction]1.9 E9/LNormal1.0-4.0[facility] Comment on above:Order Comment: Order Added by Discern Expert.Performed By: #### 89555673, 4058318, 8942495 ####[address] [address]Jddddnxvy/100 WBC (Bld)7.0 %Normal4.0-14.0Regional Medical CenterComment on above:Order Comment: Order Added by Discern Expert.Performed By: #### 37429283, 4794865, 2549001 ####[address] [address]Qnpvsuooo/Leukocytes Auto (Bld) [Pure # fraction]0.4 E9/LNormal0.2-1.0Reg[facility] Medical CenterComment on above:Order Comment: Order Added by Discern Expert.Performed By: #### 78662771, 8701833, 9318214 ####[address] [address]Yeibtczdudu/100 WBC (Bld)61.6 %Tzvpss80.0-75.0 Regional Medical CenterComment on above:Order Comment: Order Added by Discern Expert.Performed By: #### 24516953, 2656006, 9527122 ####[address] [address]Pbclvbmduig/Leukocytes Auto (Bld) [Pure # fraction]3.9 E9/LNormal2.0-7.5FLancaster Municipal Hospital Comment on above:Order Comment: Order Added by Discern Expert.Performed By: #### 26397788, 3611228, 3961881 ####[address] [address]ISA w/ Auto Diffon 23-44-5461Febbatyzzzd distribution width (RBC) [Ratio]13.4 %Ybdjfx23.9-14.2FLancaster Municipal Hospital Comment on above:Performed By: #### 16080999, 4117510, 6614186 ####[address] [address]Fnwtdzybxo (Bld) [Volume fraction]38.8 %Mgqbvp85.0-46.0Regional Medical CenterComment on above:Performed By: #### 73149521, 5810114, 9764040 ####[address] [address]Semgyxmwap (Bld) [Mass/Vol] 12.5 g/lVUdxajt15.0-16.0Regional Medical CenterComment on above:Performed By: #### 11831868, 7971912, 7432308 ####Rodriguez [address] (RBC) [Entitic mass]30.2 pgNormal 27.0-34.0Regional Medical CenterComment on above:Performed By: #### 90270552, 3593701, 0707097 ####Michael [address] Butler StreetHC (RBC) [Mass/Vol]32.1 g/tFJqgaku76.4-36.0Regional Medical CenterComment on above:Performed By: #### 02128199, 5577481, 9404118 ####Rodriguez [address]V (RBC) [Entitic vol]94.0 tUXnwqnv68.0-100.0[facility] Comment on above:Performed By: #### 55438444, 0021366, 0135516 ####[address] [address]Zpqjywlr mean volume (Bld) [Entitic vol]8.4 fLNormal6.4-10.8Regional Medical CenterComment on above:Performed By: #### 58203296, 4778046, 3925242 ####Rodriguez [address] [address]Osndobcrc (Bld) [#/Vol]234.0 E9/KCpxupl613.0-500.0Regional Medical CenterComment on above:Performed By: #### 16001516, 9525287, 8224868 ####Rodriguez [address] [address]LHH (Bld) [#/Vol]4.1 E12/LLow4.3-5.9Regional Medical CenterComment on above:Performed By: #### 34902628, 2802562, 8090391 ####Michael [facility] [address] [place], [place] [address]POV corrected for nucl RBC Auto (Bld) [#/Vol]6.3 E9/LNormal4.0-11.0Regional Medical CenterComment on above:Performed By: #### 53540791, 2054621, 2343286 ####Rodriguez [facility] [address] [place] [address] COAGULATIONOrdered By: Savi Polo on 92-23-2253cDCT Coag (PPP) [Time]32.2 s Pqrtfb31.1 - 36.5 second(s)[facility] Auto CoagINR Coag (PPP) [Relative time]1.3 {INR} Invalid Interpretation CodeFT Auto CoagPT Coag (PPP) [Time]14.5 sHigh9.4 - 12.5 second(s)[facility] Auto CoagConsent for Procedure/Surgeryon 76-20-0421Gbcmkwj for Procedure/[id number]#1.00CD:[address] [place], [place] [address]Consent for Treatmenton 73-43-6192Ekccqwb for [id number]#1.00CD:127[facility] CenterHEMATOLOGYOrdered By: SYSTEM SYSTEM on 94-39-6905Dlsgxxxmj/100 WBC (Bld)0.8 %Normal0.0 - 2.0 %FT HemeAutoSSBasophils/Leukocytes Auto (Bld) [Pure # fraction]0.1 E9/LNormal0.0 - 0.2 E9/LFTMC HemeAutoSSEosinophils/100 WBC (Bld) 1.0 %Normal0.0 - 8.0 %FTMC HemeAutoSSEosinophils/Leukocytes Auto (Bld) [Pure # fraction]0.1 E9/LNormal0.0 - 0.5 E9/LFTMC HemeAutoSSLymphocytes/100 WBC (Bld) 29.6 %Afwlvu16.0 - 50.0 %FT HemeAutoSSLymphocytes/Leukocytes Auto (Bld) [Pure # fraction]1.9 E9/LNormal1.0 - 4.0 E9/LFTMC HemeAutoSSMonocytes/100 WBC (Bld)7.0 %Normal4.0 - 14.0 %[facility] HemeAutoSSMonocytes/Leukocytes Auto (Bld) [Pure # fraction]0.4 E9/LNormal0.2 - 1.0 E9/LFTMC HemeAutoSSNeutrophils/100 WBC (Bld) 61.6 %Mgwsan41.0 - 75.0 %[facility] HemeAutoSSNeutrophils/Leukocytes Auto (Bld) [Pure # fraction]3.9 E9/LNormal2.0 - 7.5 E9/LFTMC HemeAutoSSHEMATOLOGYOrdered By: Altagracia Davis on 95-66-7461Qoeyttrwuuw distribution width (RBC) [Ratio]13.4 % Bwlddg56.9 - 14.2 %[facility]MC HemeAutoSSHematocrit (Bld) [Volume fraction]38.8 %Normal 34.0 - 46.0 %[facility] HemeAutoSSHemoglobin (Bld) [Mass/Vol]12.5 g/sPNogyli90.0 - 16.0 gm/dLFTMC HemeAutoSSMCH (RBC) [Entitic mass]30.2 deUakyjo81.0 - 34.0 pgFTMC HemeAutoSSMCHC (RBC) [Mass/Vol]32.1 g/eNOttldj35.4 - 36.0 gm/dLFTMC HemeAutoSS MCV (RBC) [Entitic vol]94.0 oYAwolou05.0 - 100.0 fLFTMC HemeAutoSSPlatelet mean volume (Bld) [Entitic vol]8.4 fLNormal6.4 - 10.8 fLFTMC HemeAutoSSPlatelets (Bld) [#/Vol]234.0 E9/NErbslh056.0 - 500.0 E9/LFTMC HemeAutoSSRBC (Bld) [#/Vol] 4.1 E12/LLow4.3 - 5.9 E12/LFTMC HemeAutoSSWBC corrected for nucl RBC Auto (Bld) [#/Vol]6.3 E9/LNormal4.0 - 11.0 E9/LFTMC HemeAutoSSPT & PTTon 55-58-1368oZTW Coag (PPP) [Time]32.2 second(s)Spkyou52.1-36.5FLancaster Municipal HospitalComment on above:Result Comment: Parameter 15 days - 4 weeks 1 - [...] the same coagulation reagent and instrumentation as [facility]. Currently there are no coagulation studies available worldwide for children to 14 days, andno normal ranges. Heparin therapeutic range (represented by Anti-Factor Xa activity of 0.2 - 0.4 U/mL) corresponds to PTT of 56.6 - 109.0 sec.Performed By: #### [id number], 8786838, 6448745 ####Rodriguez [facility] [address] [place], [place] [address]LGR Coag (PPP) [Relative time]1.3 {INR}Invalid Interpretation CodeJtThomas B. Finan CenterComment on above:Result Comment: INR results are specifically intended to assess patients stabilized on long-term Anticoagulation therapy suggested INR?s ?Less Intensive Anticoagulation? 2.0 ? 3.0 Conventional Range 3.0 ? 4.5Performed By: #### 86530229, 6150131, 0598849 ####[facility] [address] [place], [place] [address]MP Coag (PPP) [Time]14.5 second(s)High9.4-12.5FLancaster Municipal HospitalComment on above:Result Comment: 15 days - 4 weeks 1 - [...] the same coagulation reagent and instrumentation as [facility]. Currently there are no coagulation studies available worldwide for children to 14 days, andno normal ranges.Performed By: #### 44304015, 6891433, 1730543 ####Rodrig[facility] [address] [place], [place] [address]Tbtbtgjon Orderon 15-56-8367Ixkfdckmm [id number]#1.00CD:127 [facility] CenterXR Chest 2 Viewson 50-25-3090DN Chest 2 Views Exam Date/Time: 09/22/2022 16:15 [...] Ka,r in mGy = na DAP = naNorMercy Health St. Anne HospitalCBC AUTO DIFFon 48-27-4570FBXB #0.1 103/ulNormal0.0-0.1[facility] HospitalComment on above:Performed By: #### CBC #### [facility] [address] [address] [address] Christa Chadwicksophils/100 WBC (Bld)1.0 %Normal0.2-2.0[facility] Comment on above:Performed By: #### CBC #### [facility] [address] [address] [address] Christa Diggs #0.1 103/ulNormal0.0-0.7The [facility] HospitalComment on above: Performed By: #### CBC #### [facility] [address] [place] [address] Dr. Christa Arcososinophils/100 WBC (Bld)1.0 %Normal0.9-7.0The [facility] Comment on above:Performed By: #### CBC #### [facility] [address] [place] [address] Dr. Christa Arcosrythrocyte distribution width (RBC) [Ratio]13.2 %Ctyqdv29.0-15.0 The [facility] HospitalComment on above:Performed By: #### CBC #### [facility] [address] [place] [address] Dr. Christa GonzalezHematocrit (Bld) [Volume fraction]39.3 %Hpvhrs93.0-48.0The [facility] HospitalComment on above:Performed By: #### CBC #### [facility] [address] [place] [address] Dr. Christa GonzalezHemoglobin (Bld) [Mass/Vol]12.6 g/xSTpcawk39.0-16.0The [facility] HospitalComment on above:Performed By: #### CBC #### [facility] [address] [place] [address] Dr. Christa Yarbrough #0.04 10e3/ulCritically high0.00-0.03The [facility] Comment on above:Performed By: #### CBC #### [facility] [address] [place] [address] Dr. Christa Yarbrough %0.5 %Normal0.0-0.5The [facility] HospitalComment on above: Performed By: #### CBC #### [facility] [address] [place] [address] Dr. Christa Townsend #1.9 103/ulNormal1.2-3.8The Dumont HospitalComment on above:Performed By: #### CBC #### [facility] [address] [address] [address] Christa Solismphocytes/100 WBC (Bld)23.2 %Gbvjmp17.5-60.0The [facility] HospitalComment on above:Performed By: #### CBC #### [facility] [address] [place] [address] Dr. Christa Cisneros DIFF REQNONormalThe Dumont HospitalComment on above: Performed By: #### CBC #### [facility] [address] [place] [address] Dr. Christa Calhoun (RBC) [Entitic mass]30.7 iaIqnnqu39.7-34.0The [facility] HospitalComment on above:Performed By: #### CBC #### [facility] [address] [place] [address] Dr. Christa Calhoun (RBC) [Mass/Vol]32.1 g/zCVelxof90.9-35.2The [facility] HospitalComment on above:Performed By: #### CBC #### [facility] [address] [place] [address] Dr. Christa Cortez (RBC) [Entitic vol]95.9 kKKypzcy61.0-99.0The [facility] HospitalComment on above:Performed By: #### CBC #### [facility] [address] [place] [address] Dr. Christa Ponce #0.7 103/ulNormal0.3-0.8The [facility] HospitalComment on above:Performed By: #### CBC #### [facility] [address] [place] [address] Dr. Christa Dhillonocytes/100 WBC (Bld)8.9 %Normal1.7-12.0The [facility] Comment on above:Performed By: #### CBC #### [facility] [address] [place] [address] Dr. Christa Rivers #5.3 103/ulNormal1.4-6.5The [facility] HospitalComment on above:Performed By: #### CBC #### [facility] [address] [place] [address] Dr. Christa Skeltonutrophils/100 WBC (Bld)65.4 %Vjcjar89.0-75.0The [facility] HospitalComment on above:Performed By: #### CBC #### [facility] [address] [place] [address] Dr. Christa GonzalezPlatelet mean volume (Bld) [Entitic vol]10.4 fLNormal9.5-13.5The [facility] HospitalComment on above:Performed By: #### CBC #### [facility] [address] [place] [address] Dr. Christa GonzalezPLT244 103/esDoblre752-934Axq [facility] HospitalComment on above: Performed By: #### CBC #### [facility] [address] [place] [address] Dr. Christa GonzalezRBC4.10 106/ulCritically low4.20-5.40The [facility] HospitalComment on above:Performed By: #### CBC #### [facility] [address] [place] [address] Dr. Christa GonzalezWBC8.1 103/ulNormal4.0-11.0The [facility] HospitalComment on above: Performed By: #### CBC #### [facility] [address] [place] [address] Dr. Christa Ford Visit (Cardiology)on 82-79-5052Iymuil-up visit Diagnoses/Problems Assessed Anticoagulated (V58.61) (Z79.01) Essential [...] to intensify diuretic therapy and because of th is she will continue as is. She was [...] DAILY OR DIRECTED BY [facility] Zinc 50 MG Oral TabletTAKE [...] Recorded: 10Jun2022 09:23AM Heart Rate64, L Radial Pwmdgxly011, LUE, Sitting Byuejpvws60, LUE, Sitting Height5 ft 5 in Anqgrx258 lb BMI Httalwsctd51.46 kg/m2 BSA Calculated1.77 Tobacco Useb) No Falls [...] thrills , regular rhythm, (more content not included)...NormalUH Motor2 Tobacco Screening.on 34-03-0460Xbkl risk assessmenta) No falls within the last yearRed [facility] 250 DO Work Phone: Tobacco use status CPHSb) NoMP-[facility] Gunjan 250 DO Work Phone: MG MAMM SCREEN 3D ROBERT CADon 17-50-0030EU MAMM SCREEN 3D ROBERT CADPatient: ELICIA DENT Exam Date: 05/26/2022 : 1950 Gender:F Ordering : DR KYEL ALMENDAREZ M.D. Admission #: [id number] Family : Order #: [id number] CLICK HERE TO VIEW EXAM RADIOLOGY REPORT [...] colon cancer at age 69. LOCATION: [facility] BREAST COMPOSITION: Scattered areas fibroglandular density. [...] by: Ke Fernández MD on 05/26/2022 at 15:38[facility] AUTO DIFFon 10-18-5435AYSB #0.1 103/ulNormal0.0-0.1The [facility] HospitalComment on above:Performed By: #### CBC #### [facility] [address] [place] [address] Dr. Christa GonzalezBasophils/100 WBC (Bld)0.8 %Normal0.2-2.0The [facility] Comment on above:Performed By: #### CBC #### [facility] [address] [place] [address] Dr. Christa Diggs #0.1 103/ulNormal0.0-0.7The [facility] HospitalComment on above: Performed By: #### CBC #### [facility] [address] [place] [address] Dr. Christa Arcososinophils/100 WBC (Bld)1.8 %Normal0.9-7.0[facility] Comment on above:Performed By: #### CBC #### [facility] [address] [place] [address] Dr. Christa Arcosrythrocyte distribution width (RBC) [Ratio]13.2 %Lfmjby81.0-15.0 The [facility] HospitalComment on above:Performed By: #### CBC #### [facility] [address] [place] [address] Dr. Christa GonzalezHematocrit (Bld) [Volume fraction]38.6 %Balcon26.0-48.0The [facility] HospitalComment on above:Performed By: #### CBC #### [facility] [address] [place] [address] Dr. Christa GonzalezHemoglobin (Bld) [Mass/Vol]12.7 g/dSFcplle01.0-16.0The [facility] HospitalComment on above:Performed By: #### CBC #### [facility] [address] [place] [address] Dr. Christa Yarbrough #0.02 10e3/ulNormal0.00-0.03The [facility] HospitalComment on above:Performed By: #### CBC #### [facility] [address] [place] [address] Dr. Christa Yarbrough %0.3 %Normal0.0-0.5The [facility] HospitalComment on above: Performed By: #### CBC #### [facility] [address] [place] [address] Dr. Christa Arevalo #2.6 103/ulNormal1.2-3.8The [facility] HospitalComment on above:Performed By: #### CBC #### [facility] [address] [place] [address] Dr. Christa Tonwsendhocytes/100 WBC (Bld)39.1 %Khyduv47.5-60.0The [facility] on above:Performed By: #### CBC #### [facility] [address] [place] [address] Dr. Christa YangUAL DIFF REQNONormalThe [facility] HospitalComment on above: Performed By: #### CBC #### [facility] [address] [place] [address] Dr. Christa Calhoun (RBC) [Entitic mass]30.9 itYubpql58.7-34.0The [facility] on above:Performed By: #### CBC #### [facility] [address] [place] [address] Dr. Christa Calhoun (RBC) [Mass/Vol]32.9 g/pGBrdxdq11.9-35.2The [facility] on above:Performed By: #### CBC #### [facility] [address] [place] [address] Dr. Christa Calhoun (RBC) [Entitic vol]93.9 kJAegsmd10.0-99.0The [facility] on above:Performed By: #### CBC #### [facility] [address] [place] [address] Dr. Christa Ponce #0.5 103/ulNormal0.3-0.8The [facility] HospitalComment on above:Performed By: #### CBC #### [facility] [address] [address] [address] Christa Dhillonocytes/100 WBC (Bld)7.9 %Normal1.7-12.0[facility] Comment on above:Performed By: #### CBC #### [facility] [address] [place] [address] Dr. Christa SkeltonUT #3.3 103/ulNormal1.4-6.5The [facility] HospitalComment on above:Performed By: #### CBC #### [facility] [address] [place] [address] Dr. Christa Skeltonutrophils/100 WBC (Bld)50.1 %Bpfone98.0-75.0The [facility] HospitalComment on above:Performed By: #### CBC #### [facility] [address] [place] [address] Dr. Christa GonzalezPlatelet mean volume (Bld) [Entitic vol]9.9 fLNormal9.5-13.5The [facility] HospitalComment on above:Performed By: #### CBC #### [facility] [address] [place] [address] Dr. Christa GonzalezPLT226 103/wiKyjeln245-478Ovo [facility] HospitalComment on above: Performed By: #### CBC #### [facility] [address] [place] [address] Dr. Christa GonzalezRBC4.11 106/ulCritically low4.20-5.40The [facility] HospitalComment on above:Performed By: #### CBC #### [facility] [address] [place] [address] Dr. Christa GonzalezWBC6.6 103/ulNormal4.0-11.0The [facility] HospitalComment on above: Performed By: #### CBC #### [facility] [address] [place] [address] Dr. Christa GonzalezPROF CHEM 8 (BAS METB)on 70-11-2130Xfmct gap [Moles/Vol]7.5 mmol/LNormalThe Dumont HospitalComment on above:Performed By: #### BMP #### [facility] [address] [address] [address] Christa GonzalezCalcium [Mass/Vol]9.1 mg/dLNormal8.5-10.1[facility] Comment on above:Performed By: #### BMP #### [facility] [address] [address] [address] Christa GonzalezChloride [Moles/Vol]104 mmol/JRqzsnf60-033Gwi [facility] Comment on above:Performed By: #### BMP #### [facility] [address] [address] [address] Christa GonzalezCO2 [Moles/Vol]32.3 mmol/LCritically high21.0-32.0The [facility] HospitalComment on above:Performed By: #### BMP #### [facility] [address] [address] [address] Christa GonzalezCreatinine [Mass/Vol]1.41 mg/dLCritically high0.55-1.02The [facility] HospitalComment on above:Performed By: #### BMP #### [facility] [address] [address] [address] Christa ArcosGFR-AF EBOPKSZM60 mL/min/1.77l4Auhpfsesmz low>=60The [facility] HospitalComment on above:Performed By: #### BMP #### [facility] [address] [address] [address] Christa ArcosGFR-NON AF OOEDYAOG48 mL/min/1.95d9Xqewljnmge low>=60The [facility] HospitalComment on above:Performed By: #### BMP #### [facility] [address] [address] [address] Christa GonzalezGlucose [Mass/Vol]95 mg/bSMacutj98-600Xjq [facility] Comment on above:Performed By: #### BMP #### [facility] [address] [address] [address] Christa GonzalezPotassium [Moles/Vol]3.8 mmol/LNormal3.5-5.1The [facility] Comment on above:Performed By: #### BMP #### [facility] [address] [address] [address] Christa GonzalezSodium [Moles/Vol]140 mmol/NOvfihq476-963Rzn [facility] Comment on above:Performed By: #### BMP #### [facility] [address] [address] [address] Christa GonzalezUrea nitrogen [Mass/Vol]35.0 mg/dLCritically high7.0-18.0The [facility] HospitalComment on above:Performed By: #### BMP #### [facility] [address] [address] [address] Christa GonzalezUrea nitrogen/Creatinine [Mass ratio]24.8 mg/mgNoRiverview Health InstituteComment on above:Performed By: #### BMP #### [facility] [address] [place] [address] Dr. Christa GonzalezPROTIMEon 29-82-9739WYK Coag (PPP) [Relative time]2.11 {INR} NormalGeorgetown Behavioral HospitalComment on above:Performed By: #### PT #### [facility] [address] [place] [address] Dr. Christa Crawley GUIDELINESSEE BELOWKettering Health Washington TownshipComment on above:Result Comment: DESIRED INR: 2.0 - 3.0 CONDITIONS NOT LISTED BELOW 2.5 - 3.5 FOR PROSTHETIC HEART VALVE REPLACEMENT 2.5 - 3.5 RECURRENT THROMBOSIS Performed By: #### PT #### [facility] [address] [place] [address] Dr. Christa GonzalezPT Coag (PPP) [Time]21.7 sCritically high9.0-11.6The [facility] HospitalComment on above:Performed By: #### PT #### [facility] [address] [place] [address] Dr. Christa GonzalezXR CHEST 2 Von 09-72-8329CM CHEST 2 VEXAM: CHEST 2 VIEWS, THORACIC SPINE 2 VIEWS [...] Electronically authenticated by: TAY DICKERSON Date: 2022-01-17 09:22[facility] 29-65-1393XAPROqvmby Visit ([facility] JAILENEELICIA Price ([id number]) 1950 F Date Time Provider Department 10/16/21 3:50 PM KE SCHAEFER [facility] During your visit today, we recorded the [...] (None) Encounter Status:Closed by KE SCHAEFER on 10/16/21[facility] 29-89-8279NHKLUinrdsoaz (SPANTWANMN) ELICIA DENT ([id number]) 1950 F Date Time Provider Department 09/09/21 Michael DILLARDMN During your visit today, we recorded the following information about you: Sj Villa RN 09/09/2021 11:46 AM Signed Neuro SPINE CARE COORDINATION QUICK NOTE Spoke with patient who states sent injection notes. Office only received office notes/not procedure notes. Spoke with Dr Everett's office ([phone]) in pain management who will fax over the procedure notes. Allergies As of Date: 09/09/2021 (Not on File) Date Reviewed: Never Reviewed Reason for Visit: Information [1328] Prescriptions as of 09/09/2021 - omeprazole (PRILOSEC) [...] (None) Encounter Status:Closed by SJ VILLA on [facility]/21[facility]on 08-61-6424Oveejc-up visitDiagnoses/Problems Assessed Essential hypertension (401.9) (I10) Paroxysmal atrial fibrillation (427.31) (I48.0) Anticoagulated (V58.61) (Z79.01) Overweight with body mass index (BMI) of 25 to 25.9 in adult (278.02,V85.21) (E66.3,Z68.25) Former smoker (V15.82) (Z87.891) quit 1971 Orders Overweight with body mass index (BMI) of 25 to 25.9 in adult Healthy Weight Tips; Status:Complete - Retrospective Authorization; Done: 06Sep2021 Paroxysmal atrial fibrillation Renew: Aspirin EC 81 MG Oral Tablet Delayed Release; TAKE TABLET Weekly SocHx: Former smoker Tobacco Use Screening; Status:Complete; Done: 06Sep2021 Patient Instructions By signing my name below, I, Xiomara Celis LPN ,Scribe, attest that this documentation has been prepared [...] necessary. We did advocate diet exercise and weightloss. Current Meds Medication NameInstruction Aspirin EC 81 [...] DAILY OR DIRECTED BY [facility] Zinc 50 MG Oral TabletTAKE [...] negative for complaint. Vitals Vital Signs Recorded: 06Sep2021 02:30PMRecorded: 06Sep2021 01:59PM Wxmotspj057, RUE, Hhglcud887, RUE, Sitting Jagjrcgnf57, RUE, Tcgrgac35, RUE, Sitting Heart Rate70, R Radial Pulse QualityRegular, R Radial Height5 ft 5 in Ntmids148 lb BMI Bqpkuusfjx23.96 kg/m2 BSA Calculated1.78 Tobacco Useb) No PHQ-2 #1. Over the last 2 weeks have you felt down, depressed or hopeless? (If yes, answer PHQ-9 below)No PHQ-2 #2. Over the last 2 weeks have you felt little interest or pleasure in doing things? (If yes,answer PHQ-9 below)No Fall Screeninga) No falls within [...] Signatures Electronically signed by (more content not included)...NormalUH Touchworks Tobacco Screening.on 64-16-0423Jiqld depression screening assessmentNoThree [facility] Mob[employer] DO Work Phone: Fall risk assessmenta) No falls within the last year [facility] [employer] 250 DO Work Phone: Heart RateRegularMP-[facility] [employer] 250 DO Work Phone: Tobacco use status CPHSb) NoMP-[facility] [employer] 250 DO Work Phone: XR Spine Thoracic 3 Views*on 78-23-4249EL Spine Thoracic 3 Views*FINDINGS: Minimal mid thoracic dextroscoliosis (less than 6 degrees). Diffuse hyperostosis throughout the mid thoracic spine, characteristic of DISH. Normal vertebral body height and alignment. No fracture. IMPRESSION: 1. Diffuse arthritis, no fracture. 2. Mid cervical fusion hardware. Report reported and signed by George Hobson on 08/30/2021 1233NoismaalNoHollywood [facility]byterian [facility] Medical SpecialistVladislav 72-89-5076XDAELbuixf Visit (SPSNAV) ELICIA DENT ([id number]) 1950 F Date Time Provider Department 07/23/21 [...] a normal neurologic exam (more content not included)...NormalCommunity Memorial HospitalXR LUMBAR 2V AP/LATon 06-98-9590GX LUMBAR 2V AP/LAT* * *Final Report* * * DATE OF [...] other significant abnormality. 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: MESERET Transcribe Date/Time: Jul 23 2021 12:52P Dictated by : LOLY DENIS MD This examination was interpreted and the report reviewed and electronically signed by: LOLY DENIS MD on Jul 23 2021 12:53PM EST [id number] [facility] [id number] Ab CF (S) [Titer]NegativeAmiigo Other FLUBV Ab CF (S) [Titer]NegativeAmiigo Other Vital Signs Date TimeVital SignValuePerforming XulwnevpvXujvxqop60-69-7347 09:49-0400Body iltowq075.1 cmDacandy [employer] Work Phone: [phone] [place], [place] 6338709-29-2025 09:49-0400 Body mass index (BMI) [Ratio]27.6 kg/f8Bujxob [employer] Work Phone: [phone]09-29-2025 09:49-0400 Body yihxbf72.29 kgDacandy [employer] Work Phone: [phone] [place], [place] 6338709-29-2025 09:49-0400 Diastolic blood gzjyrtfr75 mm[Hg]Kyle [employer] Work Phone: [phone] [place], [place] 6338709-29-2025 09:49-0400 Heart rate68 /[employer] [facility] [employer] Work Phone: [phone] [place], [place] 6338709-29-2025 09:49-0400 Respiratory rate18 /[facility] [employer] Work Phone: [phone] [place], [place] 6338709-29-2025 09:49-0400 SaO2% (BldA) [Mass fraction]99 %Kyle Almendarez II Work Phone: [phone] [place], [place] 6338709-29-2025 09:49-0400 Systolic blood obpzbmhd223 mm[Hg]Kyle Almendarez II Work Phone: [phone] [address]09-24-2025 10:43-0400 Diastolic blood hmdetmhf77 mm[Hg]Kyle Almendarez II Work Phone: [phone] [place], [place] 6338709-24-2025 10:43-0400 Heart rate52 /minDmarcoel Almendarez II Work Phone: [phone] [address]09-24-2025 10:43-0400 Systolic blood tjjusbqz253 mm[Hg]Kyle Almendarez II Work Phone: [phone]07-29-2025 10:28-0400 Body rkucll068.1 cmDacandy Almendarez II Work Phone: [phone] [address]07-29-2025 10:28-0400 Body mass index (BMI) [Ratio]26.9 kg/f6Vneephcandy Almendarez II Work Phone: [phone] [place], [place] 6338707-29-2025 10:28-0400 Body qnirgd18.48 kgDacandy Almendarez II Work Phone: [phone] [address]07-29-2025 10:28-0400 Diastolic blood hoiagszu17 mm[Hg]Kyle Almendarez II Work Phone: [phone] [place], [place] 6338707-29-2025 10:28-0400 Heart rate54 /minDmarcoel Almendarez II Work Phone: [phone] [place], [place] 6338707-29-2025 10:28-0400 Respiratory rate18 /minDaniel Almendarez II Work Phone: [phone] [place], [place] 6338707-29-2025 10:28-0400 SaO2% (BldA) [Mass fraction]96 %Kyle Almendarez II Work Phone: [phone] [place], [place] 6338707-29-2025 10:28-0400 Systolic blood zngzhxym022 mm[Hg]Kyle Erickson II Work Phone: [facility]07-17-2025 13:23-0400 Body ayuvvs883.1 cmRosalva Hemmer PA Work Phone: [address] [phone] 13:23-0400Body mass index (BMI) [Ratio]27.29 kg/e4Mfrha Hemmer PA Work Phone: [facility] CenterXokrxxaxbd02-62-4864 13:23-0400Body temperature 98.2 [degF]Rosalva Hemmer PA Work Phone: [facility] CenterVuzwgzcjbz60-60-1250 13:23-0400Body uthkkg87.39 kgNateen Hemmer PA Work Phone: [address] [phone] 13:23-0400Diastolic blood civrfktz84 mm[Hg]Rosalva Hemmer PA Work Phone: [facility] CenterUbgrqsycjd14-76-0295 13:23-0400Heart rate60 /min Rosalva Hemmer PA Work Phone: [address] [phone] 13:23-4576EdA5% (BldA) [Mass fraction]98 %Rosalva Hemmer PA Work Phone: [facility] CenterJexuzycrbx26-26-2878 13:23-0400Systolic blood mm[Hg]Rosalva Hemmer PA Work Phone: [facility] CenterDmxrkxtzfy21-32-8365 11:00-0400Body dliylr009.1 cmNateen Hemmer PA Work Phone: [address] [phone] 11:00-0400Body mass index (BMI) [Ratio]27.19 kg/b4Kymcs Hemmer PA Work Phone: [address] [phone] 11:00-0400Body ooaqqa97.12 kgNateen Hemmer PA Work Phone: [address] [phone] 11:00-0400Diastolic blood wqrcheof14 mm[Hg]Rosalva Hemmer PA Work Phone: [facility] CenterZxtxzytujs40-48-2477 11:00-0400Heart rate58 /min Rosalva Howemer PA Work Phone: [facility] CenterWrvscnppxt20-10-1149 11:00-0400Respiratory rate16 /minRosalva Howeria PA Work Phone: [phone] CenterNnzoyzkufk06-84-4393 11:00-7521MaG5% (BldA) [Mass fraction]99 %Rosalva Howeria PA Work Phone: [facility] CenterPfndnbnljv16-70-3384 11:00-0400Systolic blood gomrlxtc208 mm[Hg]Rosalva Howeria PA Work Phone: [phone] CenterZdcidoeawr21-01-9739 09:54-0400Body ckofvg26.1 kg Kyle Almendarez II Work Phone: [phone] [address]05-15-2025 09:54-0400 Diastolic blood cqkineyw32 mm[Hg]Kyle Almendarez II Work Phone: [phone]05-15-2025 09:54-0400 Systolic blood fytgqssn695 mm[Hg]Kyle Almendarez II Work Phone: [phone] [address]05-05-2025 11:17-0400 Body ldvrmo458.64 cmDaidalmisel Almendarez II Work Phone: [phone] [place], [place] 2780605-05-2025 11:17-0400 Body xuurfnthctp88.6 [degF]Kyle Almendarez II Work Phone: [phone]05-05-2025 11:17-0400 Body udmqfw26.02 kgDaidalmisel Almendarez II Work Phone: [phone]05-05-2025 11:17-0400 Diastolic blood gxxmgtmo08 mm[Hg]Kyle Almendarez II Work Phone: [phone]05-05-2025 11:17-0400 Heart rate61 /minDrobby Almendarez II Work Phone: [phone] [address]05-05-2025 11:17-0400 Respiratory rate20 /minDrobby Almendarez II Work Phone: [phone] [place], [place] 6338705-05-2025 11:17-0400 SaO2% (BldA) [Mass fraction]99 %Kyle Almendarez II Work Phone: [phone] [place], [place] 9763205-05-2025 11:17-0400 Systolic blood mm[Hg]Kyle Almendarez II Work Phone: [phone] [address] Street03-12-2025 13:35-0400 Body ifpsxb647.1 cmKaren Hemmer PA Work Phone: 1(043)278-[address] [place], [place] [address]Asemvyegqu09-87-9997 13:35-0400Body mass index (BMI) [Ratio]26.73 kg/x3Zqlal Hemmer PA Work Phone: [facility] CenterKezfjhldkp78-94-9157 13:35-0400Body temperature 98.6 [degF]Rosalva Hemmer PA Work Phone: 1(633)492-[address] [place], [place] [address]Jmrbsfrzdn70-86-9377 13:35-0400Body xqhwjo67.85 kgKaren Hemmer PA Work Phone: [facility] CenterKytwszkvun18-96-4534 13:35-0400Diastolic blood ezzehzvr63 mm[Hg]Rosalva Hemmer PA Work Phone: [facility] CenterZwldeivdkz63-74-8075 13:35-0400Heart rate54 /min Rosalva Hemmer PA Work Phone: [facility] CenterKmtxnafaah36-86-6411 13:35-0400Respiratory rate16 /minKaren Hemmer PA Work Phone: [facility] CenterXtkxykfnqp33-54-2008 13:35-0955CzX7% (BldA) [Mass fraction]98 %Rosalva Hemmer PA Work Phone: [facility] CenterSzdlchoaqh38-20-0369 13:35-0400Systolic blood yrlyvkzf516 mm[Hg]Rosalva Hemmer PA Work Phone: [facility] HospitalThofhizwtn06-46-8352 12:33-0500Diastolic blood eownfpif76 mm[Hg]Kyle Almendarez II Work Phone: [facility]02-27-2025 12:33-0500 Heart rate63 /Ganga Almendarez II Work Phone: [facility]02-27-2025 12:33-0500 Respiratory rate16 /Ganga Almendarez II Work Phone: 1(826)084-[address] [place], [place] 6338702-27-2025 12:33-0500 SaO2% (BldA) [Mass fraction]99 %Kyle Almendarez II Work Phone: 1(143)522-[address] [place], [place] 9763202-27-2025 12:33-0500 Systolic blood qwybdgra272 mm[Hg]Kyle Almendarez II Work Phone: 1(594)644-[address] [place], [place] 6338702-27-2025 10:34-0500 Body ygbsip435.1 cmDacandy Almendarez II Work Phone: 1(104)907-[address] [place], [place] 6338702-27-2025 10:34-0500 Body putcer62.57 kgDacandy Almendarez II Work Phone: 1(414)651-[address] [place], [place] 6338702-26-2025 13:45-0500 Body itpyvh014.1 cmRosalva Hemmer PA Work Phone: [facility] CenterUrzzrggvcr57-81-0315 13:45-0500Body mass index (BMI) [Ratio]26.59 kg/m1Ldwkw Hemmer PA Work Phone: [facility] CenterHallhmsjwf55-15-0411 13:45-0500Body temperature 97.2 [degF]Rosalva Hemmer PA Work Phone: [facility] CenterMlbbcultiv34-55-5786 13:45-0500Body fxmueu01.48 kgRosalva Hemmer PA Work Phone: [facility] CenterAjxvxnpxmk69-57-2555 13:45-0500Diastolic blood wqjbemwb65 mm[Hg]Rosalva Rust PA Work Phone: [facility] CenterWlmcxebemq32-77-6371 13:45-0500Heart rate49 /min Rosalva Hemria PA Work Phone: [facility] CenterTixslspgxo47-63-3594 13:45-0500Respiratory rate16 /Godfrey Howemer PA Work Phone: [facility] CenterZwoaxkrmtx12-33-2420 13:45-3042AnO0% (BldA) [Mass fraction]97 %Rosalva Hemmer PA Work Phone: [facility] CenterVnofapppkz75-20-0258 13:45-0500Systolic blood sphzaeep567 mm[Hg]Rosalva Howemer PA Work Phone: [facility] CenterOpkqbgcrsw17-44-2705 10:34-0500Body anzlpo379.1 [facility]20[facility] 10:34-0500Body mass index (BMI) [Ratio]27.3 kg/p3EeobrpcynVeterans Health Administration02-21-2025 10:34-0500Body spvhadetdut41.1 [degF][facility]02-21-2025 10:34-0500Body crnkow08.38 kgV[facility]02-21-2025 10:34-0500Diastolic blood hyvgqsby57 mm[Hg][facility]02-21-2025 10:34-0500 Heart rate63 /[facility]02-21-2025 10:34-0500 Respiratory rate18 /[facility]02-21-2025 10:34-0500 SaO2% (BldA) [Mass fraction]95 %[facility]02-21-2025 10:34-0500Systolic blood mm[Hg][facility] 07-26-2024 11:33-0500Body dgplfo887.1 cmRosalva Howemer PA Work Phone: [facility] CenterHbgzrmjrwt38-38-3466 11:33-0500Body mass index (BMI) [Ratio]26.63 kg/l0Byjth Hemmer PA Work Phone: [facility] CenterUjvxydxdjf83-06-7328 11:33-0500Body upnumo97.58 kgNatenoé Hemmer PA Work Phone: [facility] CenterGizbyihfme77-21-1034 11:33-0500Diastolic blood mm[Hg]Rosalva Hemmer PA Work Phone: [facility] CenterOwmhsiszes15-22-3383 11:33-0500Heart rate57 /min Rosalva Hemmer PA Work Phone: [facility] CenterZwcvmlyokq18-97-7106 11:33-0500Respiratory rate16 /minKaren Hemmer PA Work Phone: [facility] CenterTvxvusjstg13-25-8726 11:33-2542QqD3% (BldA) [Mass fraction]98 %Rosalva Hemmer PA Work Phone: [facility] CenterPgkiggsexe62-71-7549 11:33-0500Systolic blood wdeubuub615 mm[Hg]Rosalva Hemmer PA Work Phone: [facility] CenterPuooelfcxv19-77-8942 15:36-0500Body wqzekg761.1 cmKaren Hemmer PA Work Phone: [facility] CenterNenuovepun33-43-9968 15:36-0500Body mass index (BMI) [Ratio]26.73 kg/b4Odglx Hemmer PA Work Phone: [facility] CenterUldzysherx68-77-1859 15:36-0500Body bxbbwy41.85 kgKaren Hemmer PA Work Phone: [facility] CenterLhxhrsfecu92-76-3512 15:36-0500Diastolic blood lgbmedre98 mm[Hg]Rosalva Hemmer PA Work Phone: [facility] CenterLsjuyohzri92-24-7011 15:36-0500Heart rate61 /min Rosalva Hemmer PA Work Phone: [facility] CenterHrmjjyatnc60-58-2744 15:36-0500Respiratory rate16 /minKaren Hemmer PA Work Phone: [facility] CenterMaibtqgbwq94-50-4214 15:36-2334HuD2% (BldA) [Mass fraction]97 %Rosalva Hemmer PA Work Phone: [facility] CenterTobimgvrax09-97-3059 15:36-0500Systolic blood mm[Hg]Rosalva Hemmer PA Work Phone: [phone] [address]Dnpajsxtje83-24-0207 13:05-0500Body itgsbw460.1 cmKaren Hemmer PA Work Phone: 1(405)[facility]-[address] [address]Ylfafujwfz90-32-9668 13:05-0500Body mass index (BMI) [Ratio]26.26 kg/c9Gfggx Hemmer PA Work Phone: [place] [address]Yiucvsljcs91-87-4920 13:05-0500Body .58 kgKaren Hemmer PA Work Phone: 1(249)236-[address] [place], [place] [address]Rllbdqktid22-70-6280 13:05-0500Diastolic blood wgpretoc63 mm[Hg]Rosalva Hemmer PA Work Phone: 1(390)[facility]-[address] [place], [place] [address]Wyqflqsiym65-83-3226 13:05-0500Heart rate64 /min Rosalva Hemmer PA Work Phone: [facility] CenterEagglmzwce33-83-9717 13:05-0500Respiratory rate16 /minNateen Hemmer PA Work Phone: 1(233)[facility]-[address] [place], [place] [address]Wgblziwdzp55-65-2644 13:05-6074BjP6% (BldA) [Mass fraction]93 %Rosalva Hemmer PA Work Phone: 1(232)[facility]-[address] [place], [place] [address]Utnmuldozq11-90-6046 13:05-0500Systolic blood hmgksyjs120 mm[Hg]Rosalva Hemmer PA Work Phone: 1(448)141-[address] [place], [place] [address]Cvcnnuuqhl46-04-9901 09:18-0400Body urnevn952.1 cmII Kyle Almendarez Work Phone: 1(148)310-[address] [place], [place] 6338709-19-2024 09:18-0400 Body mass index (BMI) [Ratio]26 kg/m2II Kyle Almendarez Work Phone: 1(590)[address]09-19-2024 09:18-0400 Body .98 kgII Kyle Almendarez Work Phone: 1(549)[address]09-16-2024 12:35-0400 Body bekcco473.1 cmQuita Hall MD Work Phone: [facility]09-16-2024 12:35-0400 Body mass index (BMI) [Ratio]25.96 kg/f7SjjqywQuita Hall MD Work Phone: 1(597)178-[address] [place], [place] 4205609-16-2024 12:35-0400 Body inwsnt07.76 kgQuita Hall MD Work Phone: 1(616)[address]09-16-2024 12:35-0400 Diastolic blood fxdmydjo83 mm[Hg]Quita Hall MD Work Phone: 1(184)[address]09-16-2024 12:35-0400 Heart rate62 /minQuita Hall MD Work Phone: 1(767)[address]09-16-2024 12:35-0400 Systolic blood cdacrezr386 mm[Hg]Quita Hall MD Work Phone: 1(720)[address]08-24-2024 06:32-0400 Body achopd012.1 cmII Kyle Almendarez Work Phone: 1(789)134-[address] [place], [place] 9763208-24-2024 06:32-0400 Body swssju58.39 kgII Kyle Almendarez Work Phone: [facility]07-19-2024 11:39-0400 Body ncdnmi300.1 [facility]2024 11:39-0400Body mass index (BMI) [Ratio]25.89 kg/g3GosamsSelect Specialty Hospital [facility]07-19-2024 11:39-0400Body udzyri49.58 [facility]-2024 11:39-0400Diastolic blood jgnxryxl26 mm[Hg][facility]07-19-2024 11:39-0400 Heart rate43 /[facility]Select [facility]07-19-2024 11:39-0400Systolic blood wtkudlzh333 mm[Hg][facility]12-21-2023 10:42-0500Diastolic blood vzlpcili33 mm[Hg]Danish Olguin MD Work Phone: [facility]12-21-2023 10:42-0500 Systolic blood yufrfdbb571 mm[Hg]Danish Olguin MD Work Phone: [facility]12-21-2023 10:26-0500 Body gwixuw287.1 cmDanish Olguin MD Work Phone: [phone]12-21-2023 10:26-0500 Body mass index (BMI) [Ratio]25.46 kg/g0HtthyggDanish Olguin MD Work Phone: 9(319)741-[address] [place], [place] 7603912-21-2023 10:26-0500 Body gpbowk96.4 kgDanish Olguin MD Work Phone: [phone]12-21-2023 10:26-0500 Heart rate66 /minWiedna Olguin MD Work Phone: 2(651)954-[address] [place], [place] 7603912-11-2023 10:00-0500 Body wagzoz256.64 cmJessica [employer] Other [employer] Other 12-11-2023 10:00-0500Body mass index (BMI) [Ratio] 24.53 kg/m1Rjsjwau [employer] Other [employer] Other 12-11-2023 10:00-0500Body tlnzou96.95 kgJessica [employer] Other [employer] Other 11-16-2023 10:00-0500Body rhylwt147.64 cmRobert Moniteau II Other [employer] Other 11-16-2023 10:00-0500Body mass index (BMI) [Ratio] 24.05 kg/z3Vghvuw Monite[employer] II Other [employer] Other 11-16-2023 10:00-0500Body jogvan03.59 kgRobert Moniteau II [facility] [employer] Other 03-16-2023 13:11-0400Body .88 [degF] Cathie Timmis [address] [place], [place] 7186603-16-2023 13:11-0400 Diastolic blood ncbrtpug09 mm[Hg]Cathie Timmis [address] [place], [place] 7186603-16-2023 13:11-0400Heart rate62 /minHilary Timmis [address] [place], [place] 7186603-16-2023 13:11-0400Mean blood udycalel25 mm[Hg]Cathie Timmis [address] [place], [place] 7186603-16-2023 13:11-0400 Respiratory rate15 /minHilary Timmis [address] [place], [place] 7186603-16-2023 13:11-6459CvY4% (BldA) [Mass fraction]98 %Cathie Timmis [address] [place], [place] 7186603-16-2023 13:11-0400 Systolic blood fylgnoce082 mm[Hg]Cathie Timmis [address] [place], [place] 7186603-16-2023 12:10-0400Body urcluydokui66.7 [degF]Cathie Timmis [address] [place], [place] 7186603-16-2023 12:10-0400 Diastolic blood xlmqrayu11 mm[Hg]Cathie Timmis [address] [place], [place] 7186603-16-2023 12:10-0400Heart rate64 /minHilary Timmis [address] [place], [place] 7186603-16-2023 12:10-0400Mean blood hujpetge949 mm[Hg]Cathie Timmis [address] [place], [place] 7186603-16-2023 12:10-0400 Respiratory rate16 /minHilary Timmis [address] [place], [place] 7186603-16-2023 12:10-7561IgX8% (BldA) [Mass fraction]97 %Cathie Timmis [address] [place], [place] 7186603-16-2023 12:10-0400 Systolic blood pzboscfs834 mm[Hg]Cathie Timmis [address] [place], [place] 7186603-16-2023 12:05-0400Blood Pressure LocationHilary Timmis [address] [place], [place] 7186603-16-2023 12:05-0400Body ygefmbjtmlp95.52 [degF]Cathie Timmis [address] [place], [place] 7186603-16-2023 12:05-0400 Diastolic blood fqijyhwu29 mm[Hg]Cathie Timmis [address] [place], [place] 7186603-16-2023 12:05-0400Heart rate62 /minHilary Timmis [address] [place], [place] 7186603-16-2023 12:05-0400Mean blood fbyjkcyb130 mm[Hg]Cathie Timmis [address] [place], [place] 7186603-16-2023 12:05-0400 Respiratory rate12 /minHilary Timmis [address] [place], [place] 7186603-16-2023 12:05-9621ZkX0% (BldA) [Mass fraction]98 %Cathie Timmis [address] [place], [place] 7186603-16-2023 12:05-0400 Systolic blood nyzuhvhn976 mm[Hg]Cathie Timmis [address] [place], [place] 7186603-16-2023 11:55-0400Blood Pressure LocationHilary Timmis [address] [place], [place] 7186603-16-2023 11:55-9584OFX5 35 %Cathie Timmis [address] [place], [place] 7186603-16-2023 11:55-0400 Respiratory rate13 /minHilary Timmis [address] [place], [place] 7186603-16-2023 11:50-9421YVL2 35 %Cathie Timmis [address] [place], [place] 7186603-16-2023 11:45-6150WHZ9 35 %Cathie Timmis [address] [place], [place] 7186603-16-2023 11:35-0400 Respiratory rate16 /minHilary Timmis [address] [place], [place] 7186603-16-2023 09:23-0400Mean blood jnizxrgb04 mm[Hg]Cathie Timmis [address] [place], [place] 7186603-16-2023 09:23-0400Heart rate70 /minHilary Timmis [address] [place], [place] 7186603-16-2023 09:22-0400Mean blood aedbzzik36 mm[Hg]Cathie Timmis [address] [place], [place] 7186603-13-2023 15:50-0400 Diastolic blood cpxjxlqy66 mm[Hg]Cathie Timmis [address] [place], [place] 7186603-13-2023 15:50-0400Heart rate62 /minHilary Timmis [address] [place], [place] 7186603-13-2023 15:50-0400Mean blood mixmnmzh62 mm[Hg]Cathie Timmis [address] [place], [place] 7186603-13-2023 15:50-0400 Systolic blood syoblmyq779 mm[Hg]Cathie Timmis [facility]03-13-2023 15:49-0400Heart rate61 /minHilary Gilmis [address] [place], [place] 5136003-13-2023 15:49-3722IuW9% (BldA) [Mass fraction]100 %Cathie Timmis [address]03-13-2023 15:49-0400 Diastolic blood bbmiuizr44 mm[Hg]Cathie Timmis [address]03-13-2023 15:49-0400Mean blood fhszgosc004 mm[Hg]Cathiemarilyn Corderomis [address]03-13-2023 15:49-0400 Systolic blood zvkcezji527 mm[Hg]Cathie Gilmis [address] [place], [place] 7186601-09-2023 09:22-0500 Diastolic blood dnlufhrz96 mm[Hg]II Kyle Almendarez Work Phone: [facility]01-09-2023 09:22-0500 Heart rate68 /minII Kyle Almendarez Work Phone: [facility]01-09-2023 09:22-0500 Respiratory rate16 /JefferyI Kyle Almendarez Work Phone: [facility]01-09-2023 09:22-0500 SaO2% (BldA) [Mass fraction]100 %II Kylehayde Almendarez Work Phone: [facility]01-09-2023 09:22-0500 Systolic blood trcjaznl880 mm[Hg]II Kyle Almendarez Work Phone: [facility]01-09-2023 07:53-0500 Body cqtell882.1 cmII Kyle Almendarez Work Phone: [facility]01-09-2023 07:53-0500 Body mass index (BMI) [Ratio]24.7 kg/m2II Kyle Almendarez Work Phone: [facility]01-09-2023 07:53-0500 Body tmkadg51.58 kgII Kyle Almendarez Work Phone: [facility]01-09-2023 06:34-0500 Body gglvypxrcki77.1 [degF]II Kyle Almendarez Work Phone: [facility]11-29-2022 09:23-0500 Body eoselb242.1 cmDanish Olguin MD Work Phone: mp971-9793JO-Ynyny [facility] [address] DO Work Phone: 1(122) 141-772311-29-2022 09:23-0500Body mass index (BMI) [Ratio] 25.46 kg/v6VrjzakoDanish Olguin MD Work Phone: mp648-9018UM-Cohmz [facility] [address] DO Work Phone: 1(589)[phone]-4368 09:23-0500Body surface area Derived from formula1.77 v1RflmawiDanish Olguin MD Work Phone: mp455-7343XC-Matvb [facility] [address] DO Work Phone: 1(537) 468-800611-29-2022 09:23-0500Body vevuzj84.4 kgDanish Olguin MD Work Phone: mp538-6614HT-Omkwe [facility] [address] DO Work Phone: 7(515)211-27909-386303-48791080-47-8081 09:23-0500Diastolic blood rzedmwvf54 mm[Hg] Danish Olguin MD Work Phone: mp284-3783HA-Xkrjj [facility] [address] DO Work Phone: 1(616) 878-611811-29-2022 09:23-0500Heart rate64 /minDanish Olguin MD Work Phone: mp555-0999BC-Cdozp [facility] [address] DO Work Phone: 1(346) 917-146311-29-2022 09:23-0500Systolic blood yumyoato652 mm[Hg] Danish Olguin MD Work Phone: mp701-2188TF-Phubr [facility] [address] DO Work Phone: 1(697) 920-447105-11-2022 10:15-0400Body ugelyf403.64 cmThomas Felter Other [employer] Other 05-11-2022 10:15-0400Body mass index (BMI) [Ratio] 24.53 kg/o3Mafawi Felter Other [employer] Other 05-11-2022 10:15-0400Body vubuuh81.95 kgThomas Felter Other [employer] Other 04-06-2022 16:33-0400Diastolic blood xotrdqum61 mm[Hg] Ke Schaefer PA-C Work Phone: [facility]Ad[facility] HospitalWybcfa60-52-1681 16:33-0400Heart rate69 /min Ke Schaefer PA-C Work Phone: cAd[facility] HospitalLscmrh88-67-7313 16:33-0400Systolic blood mm[Hg]Ke Schaefer PA-C Work Phone: cAd[facility] HospitalNbqzfj42-81-0499 14:30-0500Diastolic blood mm[Hg]Danish Olguin MD Work Phone: mp615-2562VS-Vybzd [facility] [address] DO Work Phone: 1(884) 576-761702-25-2022 14:30-0500Systolic blood mm[Hg] Danish Olguin MD Work Phone: mp519-0101UP-Boghg [facility] [address] DO Work Phone: 1(824) 112-215102-25-2022 13:59-0500Body mcadpt656.1 cmDanish Olguin MD Work Phone: mp459-6680HV-Fqwxc [facility] [address] DO Work Phone: 1(989) 941-562602-25-2022 13:59-0500Body mass index (BMI) [Ratio] 25.96 kg/k9LbdltbkDanish Olguin MD Work Phone: 1(137) 256-1651992-1294YS-Bnkow [facility] DO Work Phone: 1(561) 198-386602-25-2022 13:59-0500Body surface area Derived from formula1.78 l9SvmdseyDanish Olguin MD Work Phone: 1(204) 124-1401493-9311UX-Ngckf [facility] DO Work Phone: 1(809) 692-702402-25-2022 13:59-0500Body pagpwa61.76 kgDanish Olguin MD Work Phone: 1(991) 736-9803689-9197GJ-Krzel [facility] DO Work Phone: 1(559) 253-597202-25-2022 13:59-0500Diastolic blood qfhptlpi18 mm[Hg] Danish Olguin MD Work Phone: 1(547) 164-1850243-8701AW-Lyloh [facility] DO Work Phone: 1(367) 894-539702-25-2022 13:59-0500Heart rate70 /minWiedna Olguin MD Work Phone: 1(556) 477-5348364-1521GW-Feokd [facility] DO Work Phone: 1(995) 994-656602-25-2022 13:59-0500Systolic blood rfokdukh752 mm[Hg] Danish Olgiun MD Work Phone: 1(374) 181-1863807-6443LQ-Pfpod [facility] DO Work Phone: 1(194) 480-563911-27-2021 13:00-0500Body iszsxu661.64 Danna Pineda Other [employer] Other 11-27-2021 13:00-0500Body xeepkvtsgmu01.8 [degF]Loli Pineda Other [employer] Other 11-27-2021 13:00-4437DlP2% (BldA) [Mass fraction]96 % Loli Pineda Other [employer] Other 10-23-2021 12:25-0400Body azndpx510.64 cmAmber Ginty Other [employer] Other 10-23-2021 12:25-0400Body mass index (BMI) [Ratio] 24.63 kg/o7Gfedz Ginty Other [employer] Other 10-23-2021 12:25-0400Body wdegfmawnyi92.4 [degF]Adrienne Ginty Other [employer] Other 10-23-2021 12:25-0400Body dtirpq29.22 kgAmber Ginty Other [employer] Other 10-23-2021 12:25-0400Diastolic blood jkmjetrs92 mm[Hg] Adrienne Ginty Other [employer] Other 10-23-2021 12:25-0400Respiratory rate18 /minAmber Ginty Other [employer] Other 10-23-2021 12:25-0400Systolic blood ihulbsns037 mm[Hg] Adrienne Ginty Other [employer] Other 09-30-2021 11:45-0400Body thtast623.64 cmThomas Felter Other [employer] Other 09-30-2021 11:45-0400Body mass index (BMI) [Ratio] 23.72 kg/m5Pgfzya Felter Other [employer] Other 09-30-2021 11:45-0400Body qneghj14.68 kgThomas Felter Other [employer] Other Encounters Encounter DateEncounter TypeCare ProviderFacilityStart: 04-10-2025 End: 47-70-9422wcobascwpsWiolif [employer] Work Phone: [facility] Work Phone: Start: 04-10-2025 End: 27-70-4877Lndsnvd encounter procedureTennille Patricia APRNSampson Regional Medical Center [facility] Work Phone: Start: 04-05-2025 End: 37-25-1286dmhwjzojwyWbkhen Augustine KoromiaFacility:[facility] Hospitaltart: 81-99-9732Mrd-patient / Non-visitLinda Carole YANGSampson Regional Medical Center Cardiology Work Phone: Start: 02-07-2025 End: 89-02-2099ojamnxpkwtUzxdyc [employer] Work Phone: [facility] Work Phone: Start: 02-07-2025 End: 70-00-0632Kgvwagh encounter procedureGeorrichard Yañez MDSampson Regional Medical Center Cardiology Work Phone: Start: 01-30-2025 End: 01-87-1170Wkcclzscx Result EncounterGeneric External Data ProviderNOMS External Department UnsolicitedStart: 01-30-2025 End: 56-05-7014Jskfohdas Result EncounterGeneric External Data ProviderNOMS External Department UnsolicitedStart: 01-26-2025 End: 45-11-1321Ckujzi Yumi TORRE Work Phone: [facility] CI FMStart: 01-26-2025 End: 77-82-8494Dzzcrq Yumi TORRE Work Phone: noms CI FMStart: 01-26-2025 End: 25-42-7249Tgubvz outpatient visit 25 minutesRosalva TORRE Work Phone: [facility] CI FMComment on above:Other chest pain (Primary Dx); Benign essential hypertension ; Peripheral vascular disease; Malaise and fatigue; Shortness of breathStart: 01-26-2025 End: 28-39-8131nylwbikchlRRAMU M HEMMERNot AvailableStart: 01-18-2025 End: 50-93-5957Gnkuvc Yumi Rust PA Work Phone: [facility] CI FMStart: 01-18-2025 End: 65-73-1263Kbmfys Yumi Rust PA Work Phone: [facility] CI FMStart: 01-18-2025 End: 89-52-3541Oehsvu outpatient visit 15 minutesRosalva TORRE Work Phone: [facility] CI FMComment on above:Stage 3b chronic kidney disease (CMS-HCC) (Primary Dx); Benign essential hypertensionStart: 01-18-2025 End: 72-53-1361gxjwmhrmeoXINOG M HEMMERNot AvailableStart: 11-24-2024 End: 90-44-0050Vsqtxym encounter procedureCinthia Xie DERRICK BOAT RUNNERWhittier Hospital Medical Center Work Phone: Start: 11-24-2024 End: 20-28-2983kwxbbzoqdpEvptg TurovskayaFaveterans memorial hospital:[facility] Hospitaltart: 11-24-2024 End: 71-72-1005lxchhmrablEmiomq Almendarez II Work Phone: [facility] Work Phone: Start: 11-24-2024 End: 54-18-6249Sotakwc encounter procedureDaniel Almendarez II Work Phone: [facility] Work Phone: start: 11-14-2024 End: 93-83-4395Tkbkxhwdl department patient visitDaniel Almendarez II Work Phone: [facility] Work Phone: Start: 09-21-2024 End: 68-64-4303Kmtchi Yumi TORRE Work Phone: [facility] CI FMStart: 09-21-2024 End: 97-17-6731Ofwken flowsMohsen Rust PA Work Phone: [facility] CI FMStart: 09-21-2024 End: 17-81-3316Kybdis outpatient visit 15 minutesRosalva TORRE Work Phone: [facility] CI FMComment on above:Acute cough; Sinus pressureStart: 09-21-2024 End: 17-30-9462bdxqylcsihEKFUI M HEMMERNot AvailableStart: 45-29-7526Bnn-patient / Non-visitDaniel Almendarez II Work Phone: [facility] Work Phone: Start: 43-46-6354Dzk-patient / Non-visitDaniel Almendarez II Work Phone: [facility] Work Phone: Start: 09-08-2024 End: 37-77-8334Yooapofdl to same day surgery [facility] Almendarez II Work Phone: [facility] Work Phone: Start: 09-08-2024 End: 30-41-8228aovxwcpumdXjqqvs Almendarez II Work Phone: [facility] Work Phone: Start: 09-07-2024 End: 98-70-8029Vnxiub Yumi TORRE Work Phone: [facility] FMStart: 09-07-2024 End: 05-81-3908Prrzbc Yumi Rust PA Work Phone: [facility] FMStart: 09-07-2024 End: 16-76-8833Cdokzmv encounter Jadyn TORRE Work Phone: [facility] FMComment on above:Medicare annual wellness visit, subsequent (Primary Dx); ACP (advance care planning); Cervical spondylosis with myelopathy; Postoperative pain; Right leg weakness; Sleep apnea with use of continuous positive airway pressure (CPAP); Status post lumbar spine operation; Benign essential hypertension (CMS/HCC); Paroxysmal atrial fibrillation (CMS/HCC); Peripheral vascular disease ([facility]/HCC); Tachycardia; Lewis's esophagus without dysplasia; Gastroesophageal reflux [...] serum prealbumin; Mixed hyperlipidemia (CMS/HCC); Reactive depression ([facility]); Rosacea; Tinnitus of both ears; TremorStart: 09-07-2024 End: 76-47-4895dqzuthukeoYYNHM M HEMMERNot AvailableStart: 09-02-2024 End: 04-56-6844wlvcyqyoewFduunloxvMercy Health [facility] Work Phone: Start: 09-02-2024 End: 36-33-6191Hycecqv encounter procedureAt[facility] [place] Work Phone: Start: 07-26-2024 End: 56-97-6048Coaptn Yumi TORRE Work Phone: [facility] FMStart: 07-26-2024 End: 31-52-7025Uuvbbz Yumi TORRE Work Phone: [facility] FMStart: 07-26-2024 End: 07-60-3423Wnvtlk outpatient visit 25 minutesRosalva TORRE Work Phone: [facility] FMComment on above:Tinnitus of both ears (Primary Dx); Benign essential hypertension (CMS/HCC); Physical deconditioning; Paroxysmal atrial fibrillation (CMS/HCC)Start: 07-26-2024 End: 65-64-2539tdhtizozxwDPFDO M HEMMERNot AvailableStart: 07-04-2024 End: 63-47-6124Pifuhs outpatient visit 15 minutesRosalva TORRE Work Phone: [facility] FMComment on above:Hair follicle infection (Primary Dx)Start: 07-04-2024 End: 02-41-6972rgvmpcvvdbWPRYD M HEMMERNot AvailableStart: 07-04-2024 End: 63-74-3829Tsnnsc Yumi Rust PA Work Phone: [facility] CI FMStart: 07-04-2024 End: 71-34-3675Oljxfy Yumi TORRE Work Phone: [phone] CI FMStart: 06-01-2024 End: 24-53-8087Urdzufrcq Result EncounterDacandy Almendarez MD Work Phone: NOMS External Department UnsolicitedStart: 06-01-2024 End: 57-93-9705Yrkflgwfp Result EncounterDacandy Almendarez MD Work Phone: NOMS External Department UnsolicitedStart: 05-25-2024 End: 27-47-8102Grsqas Yumi TORRE Work Phone: [phone] CI FMStart: 05-25-2024 End: 75-99-7117Zlyapc Yumi Rust PA Work Phone: [phone] CI FMStart: 05-25-2024 End: 96-76-7325Exrlfb outpatient visit 25 minutesRosalva TORRE Work Phone: NOMS CI FMComment on above:Hordeolum externum of left upper eyelid (Primary Dx); Encounter for screening mammogram for malignant neoplasm of breast; Hoarseness; Memory changesStart: 05-25-2024 End: 50-70-4222amznmlsihoOTXZHVasiliy Kauffman AvailableStart: 03-31-2024 End: 19-67-6392ecougwnwkrZU Kyle Almendarez Work Phone: [facility] Work Phone: Start: 03-31-2024 End: 12-64-6364Ejlttwm encounter procedureII Kyle Almendarez Work Phone: [facility] Work Phone: start: 03-28-2024 End: 16-59-8983bsksmgwwrqXS Daniel Berry Work Phone: [facility] Work Phone: Start: 03-28-2024 End: 94-70-1344Zzcbbbt encounter procedureII Kyle Almendarez Work Phone: [facility] [place] Work Phone: Start: 03-28-2024 End: 07-65-8309Mzvfzv outpatient visit 25 minutesQuita Hall MD Work Phone: [facility] HospitalComment on above:Paroxysmal atrial fibrillation (Multi); Essential hypertension; Anticoagulated; BMI 25.0-25.9,adult; Former cigarette smoker; At high risk for fallsStart: 03-28-2024 End: 53-14-2096gxepxkzmucDXQFNZWoodhull Medical Center AmbulatoryStart: 03-05-2024 End: 03-46-3711tphvirpbijZK Daniel Berry Work Phone: [facility] Work Phone: Start: 03-05-2024 End: 53-95-8863Frjgriv encounter procedureII Kyle Almendarez Work Phone: [facility] [place] Work Phone: Start: 02-29-2024 End: 75-15-4576vhtfvmbzbcYZADKVasiliy Kauffman AvailableStart: 02-18-2024 End: 09-84-6853pzpkrircgzKICSL K [facility] AmbulatoryStart: 02-11-2024 End: 39-17-0402wrzarxmokhTW Daniel Berry Work Phone: [facility] Work Phone: Start: 02-11-2024 End: 72-59-6127Dghggez encounter procedureII Kyle Almendarez Work Phone: [facility] [facility] Work Phone: Start: 01-29-2024 End: 32-61-8604Jrraijiaiabb / ancillary services managementSebastian River Medical CenterComment on above:Paroxysmal atrial fibrillation (Multi)Start: 01-29-2024 End: 96-88-3053bmrhdzllmfYRFPSVT P [facility] AmbulatoryStart: 07-15-2023 End: 58-44-3572wkbktybzklNjizxjv [employer] Other [employer] Other start: 96-60-7433Ikvhspcrf encounterJeSilverpop [facility] NeurosurgeryStart: 07-02-2023 End: 82-39-7847Scppzj outpatient visit 25 minutesDanish Olguin MD Work Phone: [facility] HospitalComment on above:Paroxysmal atrial fibrillation (CMS/HCC) (Primary Dx); Essential hypertension; AnticoagulatedStart: 06-29-2023 End: 56-46-2814djcdcfbozqRqvjmrn Springer Other [employer] Other start: 05-36-2523Goxulmtbh encounterPhotoSynesi [facility] Referral CoordinatorStart: 94-06-5760Hhqeci outpatient new 45 minutesFarnaz GonzalezBaptist Memorial Hospital NeurosurgeryStart: 06-22-2023 End: 18-56-1393ilxbtfnyyaPX Daniel Berry Work Phone: [facility] Work Phone: Start: 06-22-2023 End: 01-80-0946Ulvlgip encounter procedureII Kyle Almendarez Work Phone: [facility] [place] Work Phone: Start: 05-28-2023 End: 74-48-6796gbiifvidigEgwtob Carlisle II Other [facility] [employer] Other Start: 59-11-9289Sjcytw outpatient new 45 minutes Demetrio Devine IIFPG [place] OrthopedicsStart: 05-28-2023 End: 33-37-4043Zbumuuv encounter procedureII Kyle Almendarez Work Phone: [facility] [place] [facility] Start: 01-33-7964Nz Zena Marinelli [employer] SUPERVISOR Work Phone: [phone]-Cwjqs [facility] 250 DO Work Phone: Start: 02-18-2023 End: 33-35-2044dnvpfysmioZnsnetxk Ibis WalkerFacility:FTMCStart: 02-18-2023 End: 49-19-4910Udc Drop offMicah Walker [facility] Start: 11-10-2022 End: 64-34-1554wvfquunaswJMWRWW H FAWWADFacility:H8Tqcck: 10-13-2022 End: 52-86-2007ujmtaqnpygFTZRMM H FAWWADFacility:X7Axsis: 09-25-2022 End: 03-75-9575joupqcuegwRtoicd H TimmisFacility:FTMCStart: 09-25-2022 End: 01-03-6367Llsvcjcyv to same day surgery centerHilary H Timmis [facility] Start: 09-22-2022 End: 14-82-8495nsqrcfupdpTavbnj Braxton Berry IIFacility:40637Fpxus: 09-22-2022 End: 45-44-9806Yqczaxq encounter procedureAmandaprerna Gomez [facility] Start: 09-10-2022 End: 75-85-3036ezeuwpiuimTHLFPF H FAWWADFacility:N7Bdgvc: 08-13-2022 End: 16-74-4223uyukisvcfrJIZHMV H FAWWADFacility:Z1Ujwmq: 07-21-2022 End: 28-66-2836Mnzchvbyo to same day surgery centerBERNIE Kyle Almendarez Work Phone: [facility] Main CampusStart: 07-21-2022 End: 86-63-0511hxxvkpgiamLY Daniel Berry Work Phone: [facility] Work Phone: Start: 07-14-2022 End: 90-49-8286sammwrgderFGUNQF H FAWWADFacility:H9Ejgvj: 07-01-2022 End: 86-05-2269uxjqfqlpjhDL DANIEL BERRYFacility:P9Dkurl: 06-12-2022 End: 69-83-1825phpekzkqjeIL DANIEL BERRYFacility:Y8Irgrw: 49-02-3565Sgxixt outpatient visit 15 Luiz Olguin MD Work Phone: [phone]-TmxavRed Wing Hospital and Clinic 250 DO Work Phone: Start: 42-52-5385ixlkzpqymmGzveciGael Almendarez II Facility:06931Snvdu: 05-26-2022 End: 78-53-9752hmqrcqiaguGM DANIEL BERRYFacility:Q6Jpcmq: 05-24-2022 End: 63-20-1645wtkpyjjjakXHEFO PARKERFacility:A0Dbzpb: 05-13-2022 End: 99-39-4633pxojjekuysRHQAYO H FAWWADFacility:F4Sappy: 04-14-2022 End: 24-33-0924xmqzhcatwmYZRKCR H FAWWADFacility:L5Bpnmp: 03-13-2022 End: 57-58-0853mieumprwucHDJQFL H FAWWADFacility:U1Vlxqr: 02-10-2022 End: 88-96-9930fipoyspyvjCHFKRM Bobbi FAWWADFacility:P6Uogxh: 31-76-9749Kp Merged With [facility] Danish Olguin MD Work Phone: [phone]-Bvtke [facility] 250 DO Work Phone: Start: 01-16-2022 End: 09-48-5066zqupmoliggHC KYLE ALMENDAREZFacility:E8Pfllr: 01-10-2022 End: 60-70-6713jyhozsgjkoAUOGVY Bobbi FAWWADFacility:K3Zgsmi: 11-20-2021 End: 39-36-8673waezwcikvhYlnvdy Felter Other [employer] Other Start: 59-18-0572Mwscfh outpatient visit 15 minutes [facility] [place] CreekStart: 11-12-2021(Procedure) Short Bandar [facility] OutPtStart: 11-12-2021 End: 14-28-1967itzmkcpwymLzfxhp Felter Other [employer] Other Start: 10-16-2021 End: 12-40-2212Owfrzwb encounter procedureDavid Ibis Schaefer PA-C Work Phone: spine InstituteComment on above:Intervertebral disc disorder with radiculopathy of lumbar regionStart: 09-09-2021 End: 53-91-6571moolitrvuoPycqq Hykes Other [employer] Other Start: 07-23-9665Meuiqgeof encounterDavid HykesFPG GastroenterologyStart: 38-13-6393Ftgtkn outpatient visit 25 minutesDanish Olguin MD Work Phone: [phone]-Ylfok [facility] 250 DO Work Phone: Start: 65-61-3266Dijlxzp encounter procedureDanish Olguin MD Work Phone: [phone]-Zzqwh [facility] 250 DO Work Phone: Start: 06-08-2021 End: 27-84-5551tsqbxibqrmIgsmdx Dymond Other [facility] [employer] Other Start: 03-10-5067Mvzyhp outpatient visit 15 minutes Loli DymondFPG Urgent Care ClydeStart: 05-04-2021 End: 57-47-5195paduzdzzmxTdlyj Ginty Other [facility] [employer] Other Start: 31-53-1060Ombwxt outpatient visit 15 minutes Adrienne GintyFPG Urgent Care ClydeStart: 71-02-0988Ftxjag outpatient visit 25 minutesThomas FelterFPG Pain Management [place] CreekStart: 32-62-2968Hdgjqep encounter procedureANDRZEJ MARINELLIFacility:1532Start: 11-87-7249Uqrpals encounter procedureANDRZEJ MARINELLIFacility:3Start: 94-21-1338Avixocribwtu stateThomas Felter Other [facility] [employer] Other Procedures DateProcedureProcedure DetailPerforming ClinicianStart: 73-40-4798XS CHEST W Naif TORRE Work Phone: Start: 63-70-7592LCQ CREATININEGeneric External Data ProviderStart: 35-52-8510P-ray of lumbar spine, six views including bending viewsKyle Almendarez II Work Phone: Start: 09-08-2024 End: 34-57-7108UgzxdngghasVyjdrk Almendarez II Work Phone: Start: 68-54-6529PR TOMOSYNTHESIS SCREENING Caitlyn Almendarez MD Work Phone: Start: 71-40-1065MrgavttrthrFwjtq Hemmer PA Work Phone: Start: 87-23-1738FET of lumbar spine with contrastII Kyle Almendarez Work Phone: Start: 57-98-2279Htqcx X-ray of right hipII Kyle Almendarez Work Phone: Start: 59-55-6601X-ray of lumbar spine, six views including bending viewsII Kyle Almendarez Work Phone: Start: 91-06-1792Lrobro X-rayII Kyle Almendarez Work Phone: Start: 21-62-1973P-ray of both kneesII Kyle Almendarez Work Phone: Start: 49-20-2315Gxxde endoscope (physical object) Cathie Timmis Start: 07-21-2022 End: 68-12-7347DqxncjyhqyzTN Kyle Almendarez Work Phone: Start: 06-02-3808KqlkgpfzozvDwkxyee McGuinn MD Work Phone: AppendectomyDanish Olguin MD Work Phone: AppendectomyHilary Timmis arthroscopy of kneeHilary Timmis back fusionHilary Timmis cholecystectomyDanish Olguin MD Work Phone: CholecystectomyHilary Timmis colonoscopyDanish Olguin MD Work Phone: Comment on above:31Jsx1036Jm Akash Lala; Decompression of median nerveDanish Olguin MD Work Phone: Decompression of median nerveHilary Timmis Dilation and curettageDanish Olguin MD Work Phone: Dilation and curettageHilary Timmis H/O: hysterectomyHilary Timmis HysterectomyDanish Olguin MD Work Phone: Lumpectomy of breastDanish Olguin MD Work Phone: [phone] procedure on handWideniseiamargie Olguin MD Work Phone: [phone] procedure on kneeWilliamargie Olguin MD Work Phone: [phone] procedure on uterus AND/OR cervixDanish Olguin MD Work Phone: [phone] on neckWilliamargie Olguin MD Work Phone: [phone] arthroplasty of the hipWilliamargie Olguin MD Work Phone: [phone] on above:bilateral;Reduction mammoplasty Danish Olguin MD Work Phone: Reduction mammoplastyHilary Timmis Surgical procedure on thoraxDanish Olguin MD Work Phone: [phone] Timmis Tonsillectomy and adenoidectomyDanish Olguin MD Work Phone: Total replacement of hipWideniseiamargie Olguin MD Work Phone: [phone] on above:bilateral;Total replacement of hip Cathie Timmis Plan of Treatment DateCare ActivityDetailAuthorStart: 96-78-3464Vtpzghpqt for malignant neoplasm of colonNOMS HealthcareStart: 82-67-1916Rwdriqdaz for malignant neoplasm of colonFostoria City HospitalStart: 02-26-2026Medicare Annual Wellness (AWV)Medicare Annual Wellness (AWV)N[facility] HealthcareStart: 01-62-6323Jcmxwfqeq for malignant neoplasm of breastMammogramNOMS HealthcareStart: 03-16-2025 End: 86-00-8783Tiijype encounter tfspudvar02/04/2025 10:45 AM EDT Office Visit [address] [place] [address] Quita Hall MD [address] [facility] [address] [place] [address] [facility] HospitalStart: 02-03-5040GROSB-19 Vaccine ()COVID-19 Vaccine ( season)[facility] HealthcareStart: 02-27-2025 End: 86-95-0581Aoghclr encounter mochiqpgq68/18/2025 10:45 AM EDT Appointment [address] [place] [address] [facility]Start: 02-25-2025 End: 25-09-6091ZME panel - Blood by Automated countCBC Lab Routine Essential hypertension Expected: 02/25/2025 (Approximate), Expires: 03/28/2025[facility] Work Phone: Comment on above:Expected: 02/25/2025 (Approximate), Expires: 03/28/2025Start: 02-25-2025 End: 89-87-4296Xxagcwwrxqzxp metabolic 2000 panel - Serum or PlasmaComprehensive Metabolic Panel Lab Routine Essential hypertension Expected: 02/25/2025 (Approximate), Expires: 03/28/2025Un[facility] Work Phone: Comment on above:Expected: 02/25/2025 (Approximate), Expires: 03/28/2025Start: 94-76-1131EtrtqpfmoPomerene Hospitaltart: 01-26-2025 End: 20-74-4183MA Chest W contrast IVCT chest w IV contrast Imaging High Priority Other chest pain Benign essential hypertension Peripheral vascular disease Malaise and fatigue Shortness of breath Expected: 01/26/2025 (Approximate), Expires: 01/26/2026[facility] Work Phone: Comment on above:Expected: 01/26/2025 (Approximate), Expires: 01/26/2026Start: 01-26-2025 End: 78-59-3196Txbgqpf encounter /17/2025 1:30 PM EDT Office Visit [facility] [address] [place] [address] Rosalva Rust, PA [address] [place] [address] ArrivedNOMS CI FMComment on above:ArrivedStart: 01-18-2025 End: 80-81-1366Pbiifdg encounter jcrbessdh86/09/2025 11:00 AM EDT Office Visit [facility] [address] [place] [address] Rosalva Rust, PA [address] [place] [address] ArrivedNOMS CI FMComment on above:ArrivedStart: 66-21-4535Zyqdbkh referralCoshocton [facility] Work Phone: Start: 03-12-2025Medicare Annual Wellness (AWV) Medicare Annual Wellness (AWV)NOMS HealthcareStart: 09-21-2024 End: 94-82-4242Srovwar encounter bzqqyglfl41/12/2025 1:30 PM EDT Office Visit [facility] [address] [place] [address] Rosalva Rust, PA [address] [place] [address] ArrivedNOMS CI FMComment on above:ArrivedStart: 15-53-8733WudlycwjdPomerene Hospitaltart: 09-07-2024 End: 09-11-7390Aavgusp encounter /26/2025 1:30 PM EST Office Visit [facility] [address] [place] [address] Rosalva Rust, PA [address] [place] [address] ArrivedNOMS CI FMComment on above:ArrivedStart: 07-26-2024 End: 53-82-1083Jvrvbpb encounter hdhkvplni84/14/2025 11:30 AM EST Office Visit [facility] [address] [place] [address] Rosalva Rust, PA [address] [place] [address] ArrivedNOMS CI FMComment on above:ArrivedStart: 07-04-2024 End: 76-19-8545Yzybvtt encounter irswpfvjg88/23/2024 3:30 PM EST Office Visit [facility] [address] [place] [address] Rosalva Rust PA [address] [place] [address] ArrivedNOMS CI FMComment on above:ArrivedStart: 06-29-2024 End: 81-62-9638Bkqfsla encounter procedureWood County HospitalStart: 05-27-2024 End: 77-91-5971FAR Breast - bilateral screeningBilateral screening mammogram with tomosynthesis Imaging Routine Encounter for screening mammogram for malignant neoplasm of breast Expected: 05/27/2024, Expires: 07/25/2025NOE[facility] Work Phone: Comment on above:Expected: 05/27/2024, Expires: 07/25/2025Start: 03-28-2024 End: 22-51-3452ATV panel - Blood by Automated countCBC Lab Routine Essential hypertension Expected: 03/28/2024 (Approximate), Expires: 03/28/2025Un[facility] Work Phone: Comment on above:Expected: 03/28/2024 (Approximate), Expires: 03/28/2025Start: 03-28-2024 End: 25-73-2619Xcsvyznlhyokf metabolic 2000 panel - Serum or PlasmaComprehensive Metabolic Panel Lab Routine Essential hypertension Expected: 03/28/2024 (Approximate), Expires: 03/28/2025[facility] Work Phone: Comment on above:Expected: 03/28/2024 (Approximate), Expires: 03/28/2025Start: 03-28-2024 End: 68-04-9751DM Heart TransthoracicTransthoracic Echo Complete Echocardiography Routine Paroxysmal atrial fibrillation (Multi) Expected: 03/28/2024 (Approximate), Expires: 03/28/2026Un[facility] Work Phone: Comment on above:Expected: 03/28/2024 (Approximate), Expires: 03/28/2026Start: 97-20-0509NTKEU-19 Vaccine ( season)COVID- 19 Vaccine ()[facility]: 40-19-8796Emvxuplkd vaccinationInfluenza Vaccine (#1)[facility]: 23-69-0935Xokzh X-ray of right hipXR hip RT min 2V(w/wo pelvis)* [facility]: 14-46-7721WB Hip - right 2 Views [facility]: 28-68-1559AUO, Provider: Danish Olguin, Status: Pen, Time: 11:10 AMFUV, Provider: Danish Olguin, Status: Pen, Time: 11:10 AM-[facility] 250 DO Work Phone: Start: 62-70-7807Cemjojdfe for malignant neoplasm of breastMammogramUnOhioHealth [facility]: 17-62-4842AVFNN-19 Vaccine ( season)COVID-19 Vaccine ( season)[facility]: 88-97-8608Eypowexac vaccinationInfluenza Vaccine (#1)[facility]: 35-54-6958KebuwxewrPomerene Hospitaltart: 83-22-2642XsdgraprxPomerene Hospitaltart: 53-73-8309BIP, Provider: Danish Olguin, Status: Pen, Time: 10:20 AMFUV, Provider: Danish Olguin, Status: Vidal, Time: 10:20 AMBigfork [facility] HospitalSh[facility] 250 DO Work Phone: Start: 19-95-4169Byxypfkam vaccinationINFLUENZA (Season Ended)[facility]: 39-53-8089DLJGGXJ DIRECTIVE DISCUSSION ADVANCE DIRECTIVE DISCUSSIONDunlap Memorial Hospitaltart: 45-04-9399Fwqhdtordroa Vaccine: 65+ Years (2 - PCV)Pneumococcal Vaccine: 65+ Years (2 - PCV)[facility]: 94-45-7856Peivihxduptk Vaccine: 65+ Years (2 of 2 - PCV)Pneumococcal Vaccine: 65+ Years (2 of 2 - PCV)[facility]: 05-21-2328SKCR DENSITYBONE DENSITYDunlap Memorial Hospitaltart: 04-19-7512JSAUZFPHV AGE 65 AND OVER WITH 5YR LOOKBACK (#1)PNEUMOVAX AGE 65 AND OVER WITH 5YR LOOKBACK (#1)[facility]: 91-80-8941BVT patients and/or patients aged 60+ years (1 - 1-dose 60+ series)RSV patients and/or patients aged 60+ years (1 - 1-dose 60+ series)[facility]: 60-44-3624ZRYSFUNI VACCINE (1 of 2)SHINGRIX VACCINE (1 of 2)[facility]: 42-13-2979Irklrh Vaccines (1 of 2)Zoster Vaccines (1 of 2)[facility]: 92-27-3719AWBFAPQCV (FIT-DNA)COLOGUARD (FIT-DNA)[facility]: 57-21-4928Lshnjbyvlvw COLONOSCOPYDunlap Memorial Hospitaltart: 74-06-1222FQGOIWGRNF CANCER SCREENING COLORECTAL CANCER SCREENINGDunlap Memorial Hospitaltart: 77-44-2153MJ COLONOGRAPHYCT COLONOGRAPHYDunlap Memorial Hospitaltart: 83-44-4520TIFUHELH SCREENDIABETES SCREEN [facility]: 90-94-9977MKJAU OCCULT BLOODFECAL OCCULT BLOODDunlap Memorial Hospitaltart: 84-28-6286ULCJI SCREENLIPID SCREENDunlap Memorial Hospitaltart: 1994 SIGMOIDOSCOPYSIGMOIDOSCOPYDunlap Memorial Hospitaltart: 19-31-2315AkhefbgmpvqTMZEDRNSB [facility]: 76-96-9803YAvF/Tdap/Td Vaccines (1 - Tdap)DTaP/Tdap/Td Vaccines (1 - Tdap)[facility]: 49-41-4512Lluux microalbumin profileDTAP,TDAP,TD (1 - Tdap)[facility]: 1968 Diabetes mellitus screeningDiabetes ScreeningFostoria City Hospital Start: 79-61-8215LNNLVJZXI C SCREENINGHEPATITIS C SCREENINGParma Community General Hospital Start: 07-91-5949Aurlefxgg C screeningHepatitis C ScreeningFulton County Health Center: 37-10-3560Ietbc depression screening assessmentDEPRESSION SCREENINGDunlap Memorial Hospitaltart: 38-48-6255LXmG/Tdap/Td Vaccines (1 - Tdap) DTaP/Tdap/Td Vaccines (1 - Tdap)[facility]Start: 09-76-2509BSVXZ-19 VACCINE (1)COVID-19 VACCINE (1)[facility]: 52-91-8904INRIV-19 Vaccine (#1) COVID-19 Vaccine (#1)[facility]: 79-41-6710Jqtxp panelLipid PanelFulton County Health Center: 1949Medicare Annual Wellness VisitMedicare Annual Wellness Visit (AWV)[facility]: 83-94-3527Lxycygotf for malignant neoplasm of colonFulton County Health [facility]: 50-88-1631Vfprofwgy for osteoporosisBone Density ScanFostoria City HospitalBaohio county hospital metabolic 1998 panel - Serum or PlasmaBasic metabolic panel Lab Routine Stage 3b chronic kidney disease (CMS- HCC) Ordered: 01/18/2025[facility] Work Phone: Comment on above:Ordered: 01/18/2025ECG 12 LeadECG 12 Lead ECG Routine Paroxysmal atrial fibrillation (Multi) 01/29/2024 10:42 AM EDT [facility] Service Area Work Phone: Lipid 1995 panel - Serum or PlasmaLipid panel Lab Routine Medicare annual wellness visit, subsequent Benign essential hypertension (CMS/HCC) Mixed hyperlipidemia (CMS/HCC) Ordered: 09/07/2024[facility] Work Phone: Comment on above:Ordered: 09/07/2024Patient Education Hemorrhoids Diverticulosis Know [facility]sA[facility] Work Phone: Patient referralAdena Health System [facility]tr Work Phone: PHARYNGITIS/LARYNGITIS (HTRX)PHARYNGITIS/LARYNGITIS (HTRX) Lab Routine Acute cough Sinus pressure Ordered: 09/21/2024[facility] Work Phone: Comment on above:Ordered: 09/21/2024[facility] TransthoracicVeterans Health AdministrationXR Lumbar spine ViewsThe Bellevue Hospitalveland ClinicVeterans Health Administration Immunizations Immunization DateImmunizationNotesCare UakhlobqFnrgjbte83-97-6500fsagkdszl, high dose seasonal, preservative-freeDanish Olguin MD Work Phone: [phone]-Gfsys [facility] [address] DO Work Phone: [phone], High-dose Seasonal, Quadrivalent, Preservative Andrew TORRE Work Phone: [facility] CenterTiybyemrii04-12-7072mqmvnbgmz virus vaccine, unspecified formulationDanish Olguin MD Work Phone: [facility] Work Phone: [phone] -40 mgThomas Felter Other [employer] Other 11174546-54-6588ZfrxkbyrBbmlyw Felter Other [employer] Other 10715674-96-0167Wbgrtqa -40 mgThomas Felter Other [employer] Other 09-807046-20-1655fnnwvcbzu virus vaccine, unspecified formulationDanish Olguin MD Work Phone: [phone]-IzzvxJoshua [place] [address] DO Work Phone: [phone] virus vaccine, unspecified formulationDanish Olguin MD Work Phone: [phone]-XajhiEssentia Health 250 DO Work Phone: [phone], high dose seasonal, preservative-Scott Olguin MD Work Phone: [phone]-VwvudJoshua Ville [address] DO Work Phone: [phone]j, High-dose Seasonal, Quadrivalent, Preservative Andrew TORRE Work Phone: noEastern Missouri State HospitalJxgauqjizl93-32-5982Ylkrvsf -40 mgThomas Felter Other [employer] Other 09-784355-68-7733LacenuthApfbny Felter Other [employer] Other 09-911617-04-6439QqcjlktuGxdssf Felter Other [employer] Other 08-564405-34-7556FwlkyuhuBowkir Felter Other [employer] Other 01-368631-83-9793onyxlaaoxeuv polysaccharide vaccine, 23 valentDanish Olguin MD Work Phone: [phone]-XmsltJoshua Ville [address] DO Work Phone: Payers DatePayer CategoryPayerPolicy [id number]-[id number] 2023Medicare (Managed Care)[facility] [id number] BLUE CROSS AND BLUE SHIELD ANTHEM MEDIBLUE HMO [id number] 2021[facility] [phone] [address] [place] [address] [id number] [id number] [id number] 2.0.3.22021[id number] 2..1.346763.3.57[id number] 2..1.701489.3.579.2.33163-03-1332Tzwhyoq131657775 2..1.184678.3.579.2.28436-75-4387Asysuww521084488 2.0.1.013313.3.579.2.23869-33-5301Gifmbjx5028526 2.160.1.403279.3.579.2.15331-48-1000Uvdtdzn2966793 2.160.1.795919.3.579.2.82758-92-6651Iugexjx7076500 2.160.1.992000.3.579.2.43931-30-1679Zkxzvut0762756 2.16.840.1.101269.3.579.2.71357-90-3957Nwflytt9389359 2.16.840.1.193319.3.579.2.53256-31-1717Rmfmnas3741947 2.16.840.1.627648.3.579.2.59454-09-4533Bcuunzu3239385 2.16.840.1.355932.3.579.2.33376-73-0164Ulihsno7582881 2.16.840.1.681225.3.579.2.69175-45-0184Kguldch6195764 2.16.840.1.841718.3.579.2.49260-08-2735Vumuheg5340332 2.16840.1.813571.3.579.2.96892-70-8509Nupmwwi3636478 2.16.840.1.981226.3.579.2.35887-67-5030Preqwdq3661659 2.16.840.1.567394.3.579.2.46015-64-9229Lwtjygj9345945 2.16.840.1.584062.3.579.2.97070-53-9252Qffgntu3814623 2.16.840.1.251193.3.579.2.04073-96-2873Upwdjvj0222970 2.16.840.1.808678.3.579.2.75676-41-4186Ewhojyw17287186 2.16.840.1.873643.3.57[id number] 2.16.840.1.093044.3.57[id number] 2.16.840.1.133675.3.57[id number] 2.16.840.1.410982.3.579.[id number] 2.16840.1.225457.3.57[id number] 2.840.1.958547.3.57[id number] 2.840.1.983354.3.57[id number] 2.840.1.174413.3.57[id number] 2.0.1.112767.3.57[id number] 2.840.1.877512.3.57[id number] 2.0.1.859558.3.57[id number] 2.840.1.806010.3.57[id number] 2.840.1.695194.3.579.2.[id number] 2.840.1.745[id number] Rehab-IP Part A [id number] Health InsuranceAetna [facility] PFFS [id number] Health InsuranceRUST [id number] HCAP/HFA/FAP [id number] 2.16.840.1.2[id number] 2.16.840.1.978329.3.579.2.531 [id number] 2.16.840.1.802[id number] 2.16.840.1.70[id number] 2.16.840.1.709166.3.579.2.531 Social History DateTypeDetailFacilityStart: 04-06-2023 End: 04-32-0695Yp alcohol useNo alcohol useNOMS Healthcare Work Phone: Comment on above:quit 1970;Start: 10-16-2021 End: 46-27-9845Zmkwewo smoking status NHISEx-smokerDunlap Memorial Hospitaltart: 10-16-2021 End: 82-67-1332Tmrgypu use and exposureSmokeless tobacco non-userDunlap Memorial Hospitaltart: 42-94-2251Jfb Assigned At BirthNot on fileDunlap Memorial Hospitaltart: 10-06-2021 End: 33-37-6012Mmxnodrv to SARS-CoV-2 (event)Not sureDunlap Memorial Hospitaltart: 04-06-2023 End: 01-87-5010Lxa [facility]: 32-43-0625Mna [facility]igned At [facility] HospitalT[facility] smoking statusNo Smoking Status [facility] 08-[facility]-2022 End: 31-48-2559Wuwdxmz smoking status NHISNever smoked tobacco (finding) [facility]2023 End: 79-15-3273Hepttic intakeLifetime non-drinker (finding)[facility] Work Phone: History of tobacco useCurrent smokerUnMercy Health St. [facility] Work Phone: History of tobacco useCigarette SmokerUnMercy Health St. [facility] Work Phone: History of tobacco usePassive smokerNOME Healthcare Within the last year, have you been afraid of your partner or ex-partner?NoNOMS Healthcare Work Phone: Do you belong to any clubs or organizations such as presybeterian groups, [employer], [employer] or athletic groups, or school groups?YesNOMS HealthcareAre you now , , , , never or living with a partner?MarriedNOMS HealthcareHow often to you have a drink containing alcohol?NeverNOMS HealthcareStart: 46-13-2094Tea many standard drinks containing alcohol do you have on a typical day?Patient does not drinkNOMS HealthcareDo you feel stress - tense, restless, nervous, or anxious, or unable to sleep at night because yourmind is troubled all the time - these days [OSQ] Not at allNOMS Healthcare(I/We) worried whether (my/our) food would run out before (I/we) got money to buy more.Never trueNOME HealthcareStart: 09-02-2024 End: 78-10-8693JvjOooter (finding)[facility] AdministrationHow often do you need to have someone help you when you read instructions, pamphlets, or other written material from your doctor or pharmacy [SILS]RarelyNOMS Healthcare Work Phone: Medical Equipment Procedure CodeEquipment CodeEquipment Original TextEquipment IdentifierDates Fusion, spine, lumbar, XLIFXLIF 3 LEVEL MAS REDUCTIONFDAStart: 97-13-3274Iyfhyq, spine, lumbar, XLIFBone-screw internal spinal fixation system, non-sterile ([id number] FDAStart: 75-02-1583Uxywyt, spine, lumbar, XLIFBone-screw internal spinal fixation system, non-sterile()[id number] FDAStart: 78-42-5413Ijzjcf, spine, lumbar, XLIFBone-screw internal spinal fixation system, non-sterile()[id number] FDAStart: 11-49-7787Ubtwvb, spine, lumbar, XLIF Spinal fusion graft kit()[id number])[id number] FDAStart: 85-63-0253Mwlnsm, spine, lumbar, XLIFBone-screw internal spinal fixation system, non-sterile()[id number] FDAStart: 14-78-7920Gmkamx, spine, lumbar, XLIF Spinal fusion graft kit()[id number](10)[id number] FDAStart: 62-55-7824Zzocgc, spine, lumbar, XLIFBone matrix implant, human-derived ()[id number] FDAStart: 04-76-7738Ictwlz, spine, lumbar, XLIFMetallic spinal fusion cage, non-sterile()[id number] FDAStart: 13-79-7929Mcomkj, spine, lumbar, XLIFMetallic spinal fusion cage, non-sterile ()[id number] FDAStart: 45-49-4259Mrssts, spine, lumbar, XLIFMetallic spinal fusion cage, non-sterile()[id number] FDAStart: 81-10-9243Tlcszm, spine, lumbar, XLIFBone-screw internal spinal fixation system, non-sterile ()[id number] FDAStart: 05-66-2178Vauxqm, spine, lumbar, XLIFBone-screw internal spinal fixation system, non-sterile()[id number] FDAStart: 83-22-0726Omexst, spine, lumbar, XLIFXLIF 3 LEVEL MAS REDUCTIONFDAStart: 91-68-2758Pnoesk, spine, lumbar, XLIFXLIF 3 LEVEL MAS REDUCTIONFDAStart: 00-53-1441Hxqnhe, spine, lumbar, XLIFXLIF 3 LEVEL MAS REDUCTIONFDAStart: 00-06-4545Bqtwyq, spine, lumbar, XLIFXLIF 3 LEVEL MAS REDUCTIONFDAStart: 28-11-7703Iyvjwa, spine, lumbar, XLIFXLIF 3 LEVEL MAS REDUCTIONFDAStart: 48-39-0386Wdmvkm, spine, lumbar, XLIFXLIF 3 LEVEL MAS REDUCTIONFDAStart: 85-43-1533Ogehtu, spine, lumbar, XLIFXLIF 3 LEVEL MAS REDUCTIONFDAStart: 39-55-2299Gnzwbl, spine, lumbar, XLIFXLIF 3 LEVEL MAS REDUCTIONFDAStart: 33-21-7117Pwpmpe, spine, lumbar, XLIFXLIF 3 LEVEL MAS REDUCTIONFDAStart: 14-69-4234Aapkdh, spine, lumbar, XLIFXLIF 3 LEVEL MAS REDUCTIONFDAStart: 33-74-1382Rxllkv, spine, lumbar, XLIFXLIF 3 LEVEL MAS REDUCTIONFDAStart: 89-82-4876Gtnqun, spine, lumbar, XLIFXLIF 3 LEVEL MAS REDUCTIONFDAStart: 56-76-9829Vhsqah, spine, lumbar, XLIFXLIF 3 LEVEL MAS REDUCTIONFDAStart: 75-28-8768Kucpkj, spine, lumbar, XLIFXLIF 3 LEVEL MAS REDUCTIONFDAStart: 83-20-1775Zqnkkkhsjhmv, hip, total, anterior approachHEAD BIOLOX CERAMIC 32/+3.5 FDAStart: 70-64-8144Odibuudtfrox, hip, total, anterior approachHIP LEVEL 3FDA Start: 65-04-9443Bvjancscyuny, hip, total, anterior approachLINER VIVACIT-E 32MM SIZE GGFDAStart: 26-67-2792Tjdnmbhqtlzv, hip, total, anterior approachSCREW BONE 6.5MM X 50MMFDAStart: 38-49-1853Lbkvrptqtxal, hip, total, anterior approach SHELL TM 48MM SIZE GGFDAStart: 21-43-6570Lvmuzhttmgsa, hip, total, anterior approachSTEM HIP FITMORE UNCEMENTEDFDAStart: 90-00-3596Qxahqdihfjli, hip, total, anterior approachHEAD BIOLOX CERAMIC 32/+3.5FDAStart: 32-88-9048Bsjepfhbgvrb, hip, total, anterior approachHIP LEVEL 3FDAStart: 39-68-9742Bpycbxpbance, hip, total, anterior approachLINER VIVACIT-E 32MM SIZE GGFDAStart: 08-13-2017 Arthroplasty, hip, total, anterior approachSCREW BONE 6.5MM X 50MMFDAStart: 05-10-0487Ztdbmgcdjezr, hip, total, anterior approachSHELL TM 48MM SIZE GGFDA Start: 15-56-1510Mdiuxwtcutto, hip, total, anterior approachSTEM HIP FITMORE UNCEMENTEDFDAStart: 32-06-1883Jyuuysgxhncc, hip, total, anterior approachHEAD BIOLOX CERAMIC 32/+3.5FDAStart: 96-91-8351Gqjddlyqweys, hip, total, anterior approachHIP LEVEL 3FDAStart: 51-50-6033Gbgbxhtacxtf, hip, total, anterior approachLINER VIVACIT-E 32MM SIZE GGFDAStart: 50-38-3880Bqrhighkgzhs, hip, total, anterior approachSCREW BONE 6.5MM X 50MMFDAStart: 11-56-2487Xemstqtlnhja, hip, total, anterior approachSHELL TM 48MM SIZE GGFDAStart: 08-13-2017 Arthroplasty, hip, total, anterior approachSTEM HIP FITMORE UNCEMENTEDFDAStart: 01-92-9169Mmmzifjfguol, hip, total, anterior approachHEAD BIOLOX CERAMIC 32/+3.5 FDAStart: 65-08-5304Monbixdidhzu, hip, total, anterior approachHIP LEVEL 3FDA Start: 81-72-7940Hvmubaiafxjt, hip, total, anterior approachLINER VIVACIT-E 32MM SIZE GGFDAStart: 31-68-1860Iarcxregxdmd, hip, total, anterior approachSCREW BONE 6.5MM X 50MMFDAStart: 84-29-5669Mytwcjaccicu, hip, total, anterior approach SHELL TM 48MM SIZE GGFDAStart: 23-89-1558Gnbxlnbdxojb, hip, total, anterior approachSTEM HIP FITMORE UNCEMENTEDFDAStart: 52-08-5847Qdjmgjgolpxy, hip, total, anterior approachHEAD BIOLOX CERAMIC 32/+3.5FDAStart: 20-91-8627Xhxchdqtarqc, hip, total, anterior approachHIP LEVEL 3FDAStart: 21-96-2920Nracjtuictjy, hip, total, anterior approachLINER VIVACIT-E 32MM SIZE GGFDAStart: 08-13-2017 Arthroplasty, hip, total, anterior approachSCREW BONE 6.5MM X 50MMFDAStart: 98-97-6628Brjbyfbowvqw, hip, total, anterior approachSHELL TM 48MM SIZE GGFDA Start: 91-77-7065Djvkvmncvqgi, hip, total, anterior approachSTEM HIP FITMORE UNCEMENTEDFDAStart: 43-18-4953Idspniguklul, hip, total, anterior approachHEAD BIOLOX CERAMIC 32/+3.5FDAStart: 13-99-1909Lsazqkajzbqn, hip, total, anterior approachHIP LEVEL 3FDAStart: 72-25-8344Luhtqildmbxc, hip, total, anterior approachLINER VIVACIT-E 32MM SIZE GGFDAStart: 84-34-8673Jluvlxsblxjo, hip, total, anterior approachSCREW BONE 6.5MM X 50MMFDAStart: 21-47-4639Srafhptjxmou, hip, total, anterior approachSHELL TM 48MM SIZE GGFDAStart: 08-13-2017 Arthroplasty, hip, total, anterior approachSTEM HIP FITMORE UNCEMENTEDFDAStart: 31-40-6246Oddjqfduobwl, hip, total, anterior approachHEAD BIOLOX CERAMIC 32/+3.5 FDAStart: 87-17-2341Pwckxfwwurny, hip, total, anterior approachHIP LEVEL 3FDA Start: 29-56-6494Iinwyjanoehw, hip, total, anterior approachLINER VIVACIT-E 32MM SIZE GGFDAStart: 32-08-7498Fsderhourmnw, hip, total, anterior approachSCREW BONE 6.5MM X 50MMFDAStart: 66-98-8706Nyevmegfzemq, hip, total, anterior approach SHELL TM 48MM SIZE GGFDAStart: 93-22-3802Zmbxzvsmgpxh, hip, total, anterior approachSTEM HIP FITMORE UNCEMENTEDFDAStart: 12-50-3880Fvajrdztbews, hip, total, anterior approachHEAD BIOLOX CERAMIC 32/+3.5FDAStart: 67-18-6410Cpjnizmfggor, hip, total, anterior approachHIP LEVEL 3FDAStart: 12-20-5275Yfooqxweezyn, hip, total, anterior approachLINER VIVACIT-E 32MM SIZE GGFDAStart: 08-13-2017 Arthroplasty, hip, total, anterior approachSCREW BONE 6.5MM X 50MMFDAStart: 93-79-1725Eifwudayazsf, hip, total, anterior approachSHELL TM 48MM SIZE GGFDA Start: 81-94-6769Wosmhhofvydy, hip, total, anterior approachSTEM HIP FITMORE UNCEMENTEDFDAStart: 39-86-0555Bptpgsfatdzw, hip, total, anterior approachHEAD BIOLOX CERAMIC 32/+3.5FDAStart: 04-59-8713Tupuuacitlzz, hip, total, anterior approachHIP LEVEL 3FDAStart: 37-45-8355Qjykfjcpxscm, hip, total, anterior approachLINER VIVACIT-E 32MM SIZE GGFDAStart: 89-02-5670Lmnbxclqzaaa, hip, total, anterior approachSCREW BONE 6.5MM X 50MMFDAStart: 04-88-9816Nwdrnnxhcnjj, hip, total, anterior approachSHELL TM 48MM SIZE GGFDAStart: 08-13-2017 Arthroplasty, hip, total, anterior approachSTEM HIP FITMORE UNCEMENTEDFDAStart: 25-02-7402Kytbnolurpqn, hip, total, anterior approachHEAD BIOLOX CERAMIC 32/+3.5 FDAStart: 77-42-1174Slsxjwvdbxim, hip, total, anterior approachHIP LEVEL 3FDA Start: 80-98-4952Dzuynhandvvj, hip, total, anterior approachLINER VIVACIT-E 32MM SIZE GGFDAStart: 37-78-6213Uylbitcdfdcj, hip, total, anterior approachSCREW BONE 6.5MM X 50MMFDAStart: 40-36-9031Qyxdivilvgbx, hip, total, anterior approach SHELL TM 48MM SIZE GGFDAStart: 72-37-6133Bvguaxzhcdox, hip, total, anterior approachSTEM HIP FITMORE UNCEMENTEDFDAStart: 69-76-0020Jiepixjghzyq, hip, total, anterior approachHEAD BIOLOX CERAMIC 32/+3.5FDAStart: 98-10-1847Humnqwtnvqmt, hip, total, anterior approachHIP LEVEL 3FDAStart: 45-48-0661Evoxaoebrafr, hip, total, anterior approachLINER VIVACIT-E 32MM SIZE GGFDAStart: 08-13-2017 Arthroplasty, hip, total, anterior approachSCREW BONE 6.5MM X 50MMFDAStart: 27-16-7676Szbzvcywcqur, hip, total, anterior approachSHELL TM 48MM SIZE GGFDA Start: 12-67-9793Sxxqjerjvgkm, hip, total, anterior approachSTEM HIP FITMORE UNCEMENTEDFDAStart: 57-65-7311Igdgkwychxau, hip, total, anterior approachHEAD BIOLOX CERAMIC 32/+3.5FDAStart: 42-54-3740Ryyfhyxnrwou, hip, total, anterior approachHIP LEVEL 3FDAStart: 90-70-3155Krzolilkibud, hip, total, anterior approachLINER VIVACIT-E 32MM SIZE GGFDAStart: 77-60-5969Bzfbnyawfmyt, hip, total, anterior approachSCREW BONE 6.5MM X 50MMFDAStart: 22-09-6954Rnhhnhvdfnpq, hip, total, anterior approachSHELL TM 48MM SIZE GGFDAStart: 08-13-2017 Arthroplasty, hip, total, anterior approachSTEM HIP FITMORE UNCEMENTEDFDAStart: 57-69-3589Fynxpnlbuule, hip, total, anterior approachHEAD BIOLOX CERAMIC 32/+3.5 FDAStart: 40-57-1357Hxlxlfcdslaj, hip, total, anterior approachHIP LEVEL 3FDA Start: 91-53-0448Tuphemhimdqf, hip, total, anterior approachLINER VIVACIT-E 32MM SIZE GGFDAStart: 64-86-1168Jwpwuugpqmds, hip, total, anterior approachSCREW BONE 6.5MM X 50MMFDAStart: 80-67-2224Ofbrduqbeyrj, hip, total, anterior approach SHELL TM 48MM SIZE GGFDAStart: 75-38-8535Dbsxkhkcevgt, hip, total, anterior approachSTEM HIP FITMORE UNCEMENTEDFDAStart: 55-55-0850Sdnlkxirdsda, hip, total, anterior approachHEAD BIOLOX CERAMIC 32/+3.5FDAStart: 42-62-3216Xvxlggsablgo, hip, total, anterior approachHIP LEVEL 3FDAStart: 11-70-7597Yyzibtlfxnel, hip, total, anterior approachLINER VIVACIT-E 32MM SIZE GGFDAStart: 08-13-2017 Arthroplasty, hip, total, anterior approachSCREW BONE 6.5MM X 50MMFDAStart: 77-02-0223Yvmkbirnchgs, hip, total, anterior approachSHELL TM 48MM SIZE GGFDA Start: 46-23-6291Qjxzoczcokza, hip, total, anterior approachSTEM HIP FITMORE UNCEMENTEDFDAStart: 77-13-4755Yhlbfstydmyk, hip, total, anterior approachHEAD BIOLOX CERAMIC 32/+3.5FDAStart: 83-44-8141Ofogbzcdvbme, hip, total, anterior approachHIP LEVEL 3FDAStart: 56-81-8681Jjlvvfwkioxg, hip, total, anterior approachLINER VIVACIT-E 32MM SIZE GGFDAStart: 54-04-8905Eflywlaytydb, hip, total, anterior approachSCREW BONE 6.5MM X 50MMFDAStart: 64-14-2398Jdishygbwfwk, hip, total, anterior approachSHELL TM 48MM SIZE GGFDAStart: 08-13-2017 Arthroplasty, hip, total, anterior approachSTEM HIP FITMORE UNCEMENTEDFDAStart: 55-63-0510Wgptqg fixation plate, non-bioabsorbable()[id number] FDAStart: 03-23-4165Mybj-screw internal spinal fixation system, non-sterile ()[id number] FDAStart: 37-73-6764Tnxy-screw internal spinal fixation system, non-sterile()[id number] FDAStart: 82-14-4153Vwpycyghaxwzmu-body internal spinal fixation system()[id number] FDA Start: 02-14-2020 Goals DatePatient GoalDesired Activity/State Functional Status DeznDpzpcruxotOrmekjEcagaahy83-87-6354Llezejm Health Questionnaire 2 item (PHQ- 2) [Reported][facility] CenterWawfkttduk59-92-8730Tzyudmh Health Questionnaire 2 item (PHQ- 2) [Reported][facility] CenterQxasdkvldb30-63-5487Joaezxp Health Questionnaire 2 item (PHQ- 2) [Reported][facility] CenterDtwgdpufeb01-88-9481Jzdrlgpoka StatusOhioHealth [facility] Notes 04-11-2021 to 02-07-2025 Note Date & GwuuHuenMnbbiihl33-03-7614 Evaluation note* Diagnosis Onset Date Resolution Status Admit Date Atypical chest pain acuteJuly 2024 9:59amEssential (primary) hypertensionacuteJuly 2024 9:59amGERD (gastroesophageal reflux disease)acuteJuly 2024 9:59am HyperlipidemiaacuteJuly 2024 9:59amParoxysmal atrial fibrillationacuteJuly 2024 9:59amShortness of breathacuteJuly 2024 9:59amSleep apnea with use of continuous positive airway pressure (CPAP)acuteJuly 2024 9:59am [facility] Work Phone: 1(950) 153-818807-29-2025 Evaluation note* Diagnosis Onset Date Resolution Status Admit Date Atypical chest pain acuteJuly 2024 9:59amEssential (primary) hypertensionacuteJuly 2024 9:59amGERD (gastroesophageal reflux disease)acuteJuly 2024 9:59am HyperlipidemiaacuteJuly 2024 9:59amParoxysmal atrial fibrillationacuteJuly 2024 9:59amShortness of breathacuteJuly 2024 9:59amSleep apnea with use of continuous positive airway pressure (CPAP)acuteJuly 2024 9:59am Atypical chest painacuteSeptember 2024 9:39amEssential (primary) hypertensionacuteSeptember 2024 9:39amGERD (gastroesophageal reflux disease)acuteSeptember 2024 9:39amHyperlipidemiaacuteSeptember 2024 9:39amParoxysmal atrial fibrillationacuteSeptember 2024 9:39amShortness of breathacuteSeptember 2024 9:39amSleep apnea with use of continuous positive airway pressure (CPAP)acuteSeptember 2024 9:39am [facility] Work Phone: 1(883) 178-743307-17-2025 History of Present illness Narrative* NICHO Gamez - 01/26/2025 1:30 PM EDT Images from the original note were not [...] then ONE CAPSULE BY MOUTH BEFORE bedtime 400capsule 3 Glucosamine-Chondroitin (GLUCOSAMINE CHONDR COMPLEX PO) 1 [...] laminectomy LUMBAR TRANSFORAMINAL EPIDURAL STEROID INJECTION 11/12/2021 ID BREAST REDUCTION 2001 ID EDG TRANSORAL BIOPSY SINGLE/MULTIPLE 06/02/2020 TONSILLECTOMY 1959 [...] by Dr. Chioma Mcneill, ECG showed Sinus Bradycardiawith Sinus Arrhythmia. Normal ECG. Vitals and symptoms [...] to go to ER or be taken toER for further evaluation. She and her voiced understanding. Benign essential hypertension - CT chest w IV contrast; Future Patient's blood pressure is currently well controlled. Continue with current medications and I willcontinue to monitor. Goal BP remains less than [...] No follow-ups on file. documented in this encounterSaint Joseph Health CenterLtbektncqy52-59-6878 History of Present illness Narrative* NICHO Gamez - 01/18/2025 11:00 AM EDT Images from the original note were not [...] then ONE CAPSULE BY MOUTH BEFORE bedtime 400capsule 3 Glucosamine-Chondroitin (GLUCOSAMINE CHONDR COMPLEX PO) 1 [...] laminectomy LUMBAR TRANSFORAMINAL EPIDURAL STEROID INJECTION 11/12/2021 ID BREAST REDUCTION 2002 ID EDG TRANSORAL BIOPSY SINGLE/MULTIPLE 06/02/2020 TONSILLECTOMY 1959 [...] this visit: Stage 3b chronic kidney disease ([facility]) - Basic metabolic panel Will recheck kidney function with a BMP today. Will notify pt of the results once received. Encouraged pt to continue to work on increasing her water intake. Benign essential hypertension Patient's blood pressure is currently stable. Continue with current medications and I will continueto monitor. Advised no lump noted on exam today. Could be a cyst that occasionally become inflamed. Encouraged her to contact office if becomes mor pronounces or painful. She can try Head and Shoulders shampoo to calm mild scalp irritation. Follow up if symptoms worsen or fail to improve. documented in this encounterSaint Joseph Health CenterJqqaeckddc00-37-6537 Evaluation note* Diagnosis Onset Date Resolution Status Admit Date Lumbar radiculopathy acuteMay 2024 9:53amS/P lumbar fusionacuteMay 2024 9:53amEssential (primary) hypertensionacuteJuly 2024 9:59amGERD (gastroesophageal reflux disease)acuteJuly 2024 9:59amHyperlipidemiaacuteJuly 2024 9:59am Paroxysmal atrial fibrillationacuteJuly 2024 9:59amSleep apnea with use of continuous positive airway pressure (CPAP)acuteJuly 2024 9:59am [facility] Work Phone: 1(205) 190-238205-15-2025 Evaluation note* Diagnosis Onset Date Resolution Status Admit Date Lumbar radiculopathy acuteMay 2024 9:53amS/P lumbar fusionacuteMay 2024 9:53amAtypical chest painacuteJuly 2024 9:59amEssential (primary) hypertensionacuteJuly 2024 9:59amGERD (gastroesophageal reflux disease)acuteJuly 2024 9:59amHyperlipidemiaacuteJuly 2024 9:59amParoxysmal atrial fibrillation acuteJuly 2024 9:59amShortness of breathacuteJuly 2024 9:59amSleep apnea with use of continuous positive airway pressure (CPAP)acuteJuly 2024 9:59am [facility] Work Phone: 1(214) 905-208303-12-2025 History of Present illness Narrative* NICHO Gamez - 09/21/2024 1:30 PM EDT Images from the original note were not included. Subjective Patient ID: Elicia Dent is a 74 y.o. female who presents for URI. Elicia is present today for follow up bronchitis. She was seen on 09/02/24 at [facility]. Viral Bronchitis, rx'd Methylprednisone, Albuterol inhaler. Admits sinus pressure, headaches, runny nose with clearand yellow mucus, post nasal drainage, scratchy throat, nausea, body aches, productive cough. This has been on going since 09/02/24. Feels like she has improved some but not over being sick. Feels rundown. States her had similar illness and was [...] Do all this for 7 days. 14 tablet0 aspirin 81 MG EC tablet Take 81 [...] laminectomy LUMBAR TRANSFORAMINAL EPIDURAL STEROID INJECTION 11/12/2021 ID BREAST REDUCTION 2002 ID EDG TRANSORAL BIOPSY SINGLE/MULTIPLE 06/02/2020 TONSILLECTOMY 1959 [...] or fail to improve. documented in this encounterNOMS Qtruibrgrw74-83-[address] [address] Colonoscopy Procedure Report Signed Patient: Elicia Dent MR#: [id number] : 1950 Acct:[id number] Age/Sex: 74 / F Adm Date: Loc: Room: Type: [facility] Attending Dr: Apryl Cardenas DO Copies to: DO Kyle Fuller II, MD~ Colonoscopy Date/Provider 09/08/2024 Apryl Cardenas DO Narrative Procedure: Colonoscopy Indication: Family history of colon cancer in her father, sister, maternal uncle, chronic constipation. Last colonoscopy in 2021. Pre-operative diagnosis: Family history of colon cancer in her father, sister, maternal uncle, chronic constipation. Post-operative diagnosis: mild diverticulosis, internal hemorrhoids, otherwise normal colon Sedation: propofol per anesthesia dept O2 oximetry, hemodynamic monitoring was performed pre, during, and post procedure. Patient was identified, H&P completed, patient was given full explanation of the procedure as well as associatedrisks and written consent wasobtained prior to procedure. Patient expressed complete understanding of the procedure as well as alternatives to the procedure and to anesthesia and agreed to proceed with the procedure as indicated. Patient was immediately reassessed prior to IV sedation. Under IV sedation, patient was placed in the left lateral decubitus position. Digital rectal exam was performed and normal. Colonoscope was inserted and passed proximally to the cecum, which was identified by the ileocecal valve, appendiceal orifice and cecal floor. Colonoscope was slowly withdrawnwith the findings as below. [place] bowel prep score was good. Findings: Terminal ileum: normal Cecum: Normal. Ascending colon: Normal. Hepatic flexure: Normal. Transverse colon: Normal. Splenic flexure: Normal. Descending colon: Normal. Sigmoid colon: mild diverticulosis Rectum: Normal. Retroflexed views: Rectum did show small internal hemorrhoids. Biopsy taken: None Complications: None EBL: None Recommendations: -Repeat colonoscopy in 5 yrs -Fibe rich diet -miralax as needed -Follow up in the office as needed -Follow up with PCP Following a period of recovery, patient was seen and given full explanation of the procedure. Patient tolerated the procedure well and will be discharged in satisfactory, stable condition. Apryl Cardenas DO Documented By: Apryl Cardenas DO 09/08/24 1137 Signed By: 09/08/24 1203 [facility]02-27-2025 History and physical [place] [id number] Gastroenterology H&P Signed Patient: Elicia Dent MR#: [id number] : 1950 Acct:[id number] Age/Sex: 74 / F Adm Date: 5 Loc: Room: Type: [facility] Attending Dr: Apryl Cardenas DO Copies to: DO Kyle Fuller II, MD~ Date of Service: 09/08/2024 HISTORY & PHYSICAL: Patient's history with special attention to the cardiovascular, pulmonary systems and the current problem was reviewed with the patient immediately prior to the procedure. Present medications and doses reviewed in the EMR. Allergies and pertinent laboratory tests were also re viewedat this time in the EMR. The physical [...] Apryl Cardenas DO 09/08/24 1136 Signed By: 09/08/24 1137 [facility]02-26-2025 History of Present illness Narrative * NICHO Gamez - 09/07/2024 1:30 PM EST Images from the original note were not included. HPI Sinusitis Additional comments: [facility] on [facility] - admits [...] but does feel that the rhinorrhea has improved.Sore throat started last Thursday, symptoms progressed from there. Sinusitis The problem has been gradually improving since onset. Associated symptoms include coughing, ear pain and sinus pressure. Pertinent negatives include no chills, congestion, shortness of breath or sorethroat. 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 Current Outpatient Medications on File Prior [...] Past Surgical History: Procedure Laterality Date APPENDECTOMY 1976 CARPAL TUNNEL RELEASE Bilateral 1998 CHOLECYSTECTOMY CHOLECYSTECTOMY 2003 COLONOSCOPY Bilateral COLONOSCOPY 07/21/2021 with egd DILATION AND CURETTAGE 1974 EGD 05/02/2020 HYSTERECTOMY 1995 KNEE SURGERY 2001 KNEE SURGERY 2016 LAMINECTOMY 08/21/2020 LUMBAR LAMINECTOMY 08/21/2020 L2-L5 fusion and decompressive laminectomy LUMBAR TRANSFORAMINAL EPIDURAL STEROID INJECTION 11/12/2021 ID BREAST REDUCTION 2002 ID EDG TRANSORAL BIOPSY SINGLE/MULTIPLE 06/02/2020 TONSILLECTOMY 1959 [...] controlled. Continue with current medications and I willcontinue to monitor. Goal BP remains less than 130/80. - Lipid panel 9. Paroxysmal atrial fibrillation (CMS/HCC) The patient is seeing a medical videographer for this condition, treatment is deferred to that specialist. Correspondence from that specialist and any available testing were reviewed during today's visit. 10. Peripheral vascular disease (CMS/HCC) This is a chronic medical condition that is stable since last assessment. No changes in treatment are suggested at this time. 11. Tachycardia The patient is seeing a medical videographer for this condition, treatment is deferred to [...] hip The patient is seeing a medical videographer for this condition, treatment is deferred to [...] replacement The patient is seeing a medical videographer for this condition, treatment is deferred to that specialist. Correspondence from that specialist and any available testing were reviewed during today's visit. 36. Hypokalemia This is a chronic medical condition that is stable since last assessment. Normal on most recent labs. Will continue to monitor. 37. Low serum prealbumin This is a chronic medical condition that is stable since last assessment. Continue adequate proteinin diet. 38. Mixed hyperlipidemia (CMS/HCC) This is [...] Up. Rosalva ORTEGA PA-C documented in this encounterSaint Joseph Health CenterOyjymtmjee08-94-0388 Evaluation note* Diagnosis Onset Date Resolution Status Admit Date Viral bronchitis acuteFebruary 2024 9:46am [facility] Work Phone: 1(525) 600-866402-21-2025 Evaluation note* Diagnosis Onset Date Resolution Status Admit Date Viral bronchitis acuteFebruary 2024 9:46amLumbar radiculopathyacuteMay 2024 9:53amS/P lumbar fusionacuteMay 2024 9:53am [facility] Work Phone: 1(852) 319-891101-14-2025 History of Present illness Narrative* NICHO Gamez [...] on. She has not started it yet. States is unable to sing two verses without stopping to breath for a bit. Is able to get up 3/4 a flight of stairs, but needed to stop to rest, this was months ago. Does not exercise routinely, admits mostly does quilting and is pretty sedentary. Used to go to [facility], states was prone to overdoing it. Current Outpatient [...] laminectomy LUMBAR TRANSFORAMINAL EPIDURAL STEROID INJECTION 11/12/2021 ID BREAST REDUCTION 2002 ID EDG TRANSORAL BIOPSY SINGLE/MULTIPLE 06/02/2020 TONSILLECTOMY 1959 [...] fibrillation The patient is seeing a medical videographer for this condition, treatment is deferred to that specialist. Follow up in about 2 months (around 09/23/2024) for Medicare Wellness Visit. documented in this encounterSaint Joseph Health CenterCjukkuoqtq14-11-6915 History of Present illness Narrative* NICHO Gamez [...] Diagnosis Date Asthma (CMS/HCC) Atrial fibrillation (CMS/HCC) Lweis esophagus Breast cancer (CMS/HCC) Chicken pox Chronic [...] laminectomy LUMBAR TRANSFORAMINAL EPIDURAL STEROID INJECTION 11/12/2021 ID BREAST REDUCTION 2002 ID EDG TRANSORAL BIOPSY SINGLE/MULTIPLE 06/02/2020 TONSILLECTOMY 195 [...] for Medicare Wellness Visit. documented in this encounterSaint Joseph Health CenterSwbfdgjxmt09-32-6898 History of Present illness Narrative* NICHO Gamez [...] laminectomy LUMBAR TRANSFORAMINAL EPIDURAL STEROID INJECTION 11/12/2021 ID BREAST REDUCTION 2001 ID EDG TRANSORAL BIOPSY SINGLE/MULTIPLE 06/02/2020 TONSILLECTOMY 1959 [...] for Medicare Wellness Visit. documented in this encounterSaint Joseph Health CenterUgjcolpsem28-45-4924 History of Present illness Narrative* Quita Hall [...] in the 30s and 40s in the engravings polisher hours longest R to R interval 1.9 [...] exam, discussion and plan. documented in this [facility] Work Phone: 1(872) 147-317809-16-2024 Instructions* Patient Instructions* Barbie Westbrook LPN - [...] Provided instructions on exercise. [facility] Work [facility] 1([phone]) 801-313907-19-2024 History of Present illness Narrative* Sridhar Mcgill [...] m (5' 5 ) documented in [facility] Work Phone: 1(445) 908-170412-21-2023 History of Present illness Narrative* Danish Olguin [...] name below, I, Xiomara ColemanBekah GREY , Scribmelida attest that this documentation has been prepared under the direction and in the presence of Mckenzie Olguin MD. documented in this encounterF[facility] Work Phone: 1(461) 454-923512-21-2023 Instructions* Patient Instructions* Shannan Giron LPN - [...] time of your visit. documented in this encounterFostoria City [facility] Work Phone: 1(215) 149-180912-11-2023 Evaluation note* Encounter Date Diagnosis Assessment Notes Treatment Notes Treatment Clinical Notes Jun, Right lumbar radiculopathy (ICD- 10 - M54.16) Patients primary complaint today continues to be chronic lumbar with numbness throughout her right leg extending past her knee into her foot. I reviewed the MRI of the lumbar spine from 11/30/20 whichshowed posterior fusion of the L2-L5. There is [...] Xray 6 view today with MRI Lumbar withand without gadolinium. Discussion of physical therapy in which patient is hesitant due to cost. Will order aqua therapy in [place]. Follow up in 8 weeks. Medical decision [...] negative findings were considered in medical decision-making. Jun,aresthesia (ICD-10 - R20.2) Jun,DD (degenerative disc disease), lumbar (ICD-10 - M51.36) Jun,History of lumbar fusion (ICD-10 - Z98.1) Jun,History of fusion of cervical spine (ICD-10 - Z98.1) [facility] Other 11-16-2023 Evaluation note* Encounter Date Diagnosis Assessment Notes Treatment Notes Treatment Clinical Notes May, Acute pain of right knee (ICD-10 - M25.561) May,rimary osteoarthritis of left knee (ICD-10 - M17.12) May,Other spondylosis with radiculopathy, lumbar region (ICD-10 - M47.26) May,DD (degenerative disc disease), lumbar (ICD-10 - M51.36) May,OtherWe had a long discussion today regarding the [...] the way she is describing these findings andher physical exam would be concerning for spinal [...] From an orthopedic surgery standpoint, I do notfeel that there are any issues with her bilateral hip replacements and I do not feel that the very mild knee arthritis is the cause of her discomfort at this time. [facility] Other 03-16-2023 Hospital Discharge instructions Patient Education [...] instructions at home: Medicines Take or use ytfp-hna-culqfms and prescription medicines only as told by [...] discomfort that does not get better with lvks-svh-bfqiypu medicine. You have a fever. You have [...] 11/13/2017 Document Revised: 10/21/2019 Document Reviewed: 11/13/2017 [employer] Patient Education 2019 [employer]. 09/25/2022 12:53:18 Post Op Patient Instructions - FT (CUSTOM) Follow Up Care 09/19/2022 11:29:26 With:Cathie Gomez Address:Unknown When: Unknown Comments:As needed [facility]03-14-2023 Note [id number]:127[facility] 09-22-2022 [id number]:127[facility]05-11-2022 Evaluation note* Encounter Date Diagnosis Assessment Notes Treatment Notes Treatment Clinical Notes November, Other spondylosis wi th radiculopathy, lumbar region (ICD-10 - M47.26) Patients [...] with patient in regard to patients condition. November,2DDD (degenerative disc disease), lumbar (ICD-10 - M51.36) November,2Other chronic pain (ICD-10 - G89.29) November,therAbove note written by Leonidas Marinelli CMA, Road Passenger Firer. Edited and approved by Dr. Bandar Bales MD. [facility] Other 04-06-2022 NoteHNO ID: [id number] Author: Ke Schaefer PA-C Service: ? Author Type: Physician Implementation Advisor Type: Progress Notes Filed: 10/16/2021 4:43 PM Note Text: Records reviewed and there is no mention of a right L5-S1 being done previously. We will have her get a right L5-S1 done as a diagnostic test per Dr. Dillard's request. Pt reports no change in sx's since last visit.[facility] CenterUvjffaxn36-90-1055 History of Present illness Narrative* Ke Schaefer PA-C - 10/16/2021 4:38 PM EDT Records reviewed and there is no mention of a right L5-S1 being done previously. We will have her get a right L5-S1 done as a diagnostic test per Dr. Dillard's request. Pt reports no change in sx's since last visit. documented in this encounterParma [facility] Hospital02-25-2022 NoteHNO ID: [id number] Author: Michael Dillard MD Service: ? Author [...] a right L5/S1 transforaminal epidural Michael Dillard MDChillicothe Va Medical CenterUnkcmqqn61-84-9355 NoteHNO ID: [id number] Author: Michael Dillard MD Service: ? Author [...] the cause of her pain. Michael Dillard, [facility]01-11-2022 NoteHNO ID: [id number] Author: RT Javad(Michael) Service: Radiology Author Type: Technologist Type: Progress [...] BY: RT Javad(R) July 23, 2021 12:16 [facility] HospitalXwmerqca70-31-5626 NoteHNO ID: [id number] Author: Michael Dillard MD Service: ? Author [...] DATE: July 23, 2021 TIME: 11:40 AM PAGER:[facility]11-27-2021 Evaluation note* Encounter Date Diagnosis Assessment Notes Treatment Notes Treatment Clinical Notes May, Contact with and (kiran spected) exposure to other viral communicable diseases (ICD-10 - Z20.828) May,ronchitis (ICD-10 - J40) Drink plenty fluids, get plenty of rest. Take your home medications as prescribed. Take the Zithromax as prescribed gone. Use the albuterol inhaler as prescribed for cough or shortness of breath. Follow-up with your family physician on Thursday if no improvement. May,ody aches (ICD-10 - R52) May,Other Additional time spent conducting pre-visit phone call, screening for symptoms, instructions on social distancing, application and removal of PPE, and cleaning of examination room, equipment and supplies was preformed. Patient education given for testing methodology and results. Patient care instructions given in writting by [facility] Care At Home document. [facility] Other 10-23-2021 Evaluation note* Encounter Date Diagnosis [...] inside ear after shower may use hairspring fabrication supervisor on lowest cool setting to blow dry. Follow up with PCP or UC if no improvement in the next 2-3 days. Immediate eval for severe ear pain, severe headache, neck pain/stiffness, fever, N/V, hearing loss, fever, lethargy, or any other new or concerning symptoms. Patient verbalizes understanding and is agreeable to treatment plan Apr,Other infective acute otitis externa of left ear (ICD-10 - H60.392) See above treatment plan [facility] Other 09-30-2021 Evaluation note* Encounter Date Diagnosis [...] right hip and right knee pain issues. Mar,Other spondylosis with radiculopathy, lumbar region (ICD-10 - M47.26) Mar,DD (degenerative disc disease), lumbar (ICD-10 - M51.36) Patient notes benefit in regards to her lower extremity pain while taking Gabapentin. OARRS was processed and reviewed, no discrepencies. Mar,rimary osteoarthritis of right hip (ICD-10 - M16.11) Patient seen and evaluated by orthopedics who do not believe her hip is contributing to her symtpoms Mar,Other chronic pain (ICD-10 - G89.29) Mar,OtherAbove note written by Cecilia Raymond CMA, Road Passenger Firer. Edited and approved by Dr. Bandar Balse MD. [facility] Other Evaluation + Plan note Future Appointments Appointment Date:09/25/2022 10:30:00 AM Scheduled Provider: Location:[facility] App[facility]ment Type:[facility]* Diagnosis Intervertebral disc disorder with radiculopathy of lumbar region Thoracic or lumbosacral neuritis or radiculitis, unspecified documented in this encounter [facility] HospitalEvaluation noteNo InformationNortSelect Specialty Hospital - [facility] Other Evaluation noteNo assessment information available [facility] Work Phone: Evaluation note* Diagnosis Paroxysmal atrial fibrillation (CMS/HCC)- Primary Atrial fibrillation Essential hypertension Unspecified essential hypertension Anticoagulated Encounter for long-term (current) use of anticoagulants documented in this encounter [facility] Work Phone: Evaluation note* Diagnosis Onset Date Resolution Status Greater trochanteric bursitis of right h ip acute [facility] Work Phone: Evaluation note* Diagnosis Onset Date Resolution Status Greater trochanteric bursitis of right h ip acuteGreater trochanteric bursitis of right hipacuteS/P lumbar fusionacute [facility] Work Phone: Evaluation note* Diagnosis Hordeolum externum of left upper eyelid- Primary Encounter for screening mammogram for malignant neoplasm of breast Hoarseness Dysphonia Memory changes documented in this encounter [facility] HealthcareEvaluation note* Diagnosis Paroxysmal atrial fibrillation (Multi) Atrial fibrillation documented in this encounter [facility] Work Phone: Evaluation note* Diagnosis Paroxysmal atrial fibrillation (Multi) Atrial fibrillation Essential hypertension Unspecified essential hypertension Anticoagulated Encounter for long-term (current) use of anticoagulants BMI 25.0-25.9,adult Former cigarette smoker Personal history of tobacco use, presenting hazards to health At high risk for falls documented in this encounter [facility] Work Phone: Evaluation note* Diagnosis Hair follicle infection- Primary Carbuncle and furuncle of unspecified site documented in this encounter [facility] HealthcareEvaluation note* Diagnosis Tinnitus of both ears- Primary Unspecified tinnitus Benign essential hypertension (CMS/HCC) Essential hypertension, benign Physical deconditioning Muscular wasting and disuse atrophy, not elsewhere classified Paroxysmal atrial fibrillation (CMS/HCC) Atrial fibrillation documented in this encounter [facility] HealthcareEvaluation note* Diagnosis Medicare annual wellness visit, [...] Abnormal involuntary movements [facility]* Diagnosis Acute cough Sinus pressure Other diseases of nasal cavity and sinuses documented in this encounter [facility]Evaluation [facility]* Diagnosis Stage 3b chronic kidney disease (CMS-HCC)- Primary Benign essential hypertension Essential hypertension, benign documented in this encounter [facility]* Diagnosis Other chest pain- Primary Benign essential hypertension Essential hypertension, benign Peripheral vascular disease Unspecified peripheral vascular disease Malaise and fatigue Shortness of breath documented in this encounter [facility] HealthcareHistory and physical note Author Apryl Cardenas [facility] AdministrationNote Date/TimeFebruary 2024 11:37am [place] [address] Gastroenterology H&P Signed Patient: Elicia Dent MR#: [id number] : 1950 Acct:[id number] Age/Sex: 74 / F Adm Date: Loc: Room: Type: [facility] Attending Dr: Apryl Cardenas DO Copies to: DO Kyle Fuller II, MD~ Date of Service: 09/08/2024 HISTORY & PHYSICAL: Patient's history with special attention to the cardiovascular, pulmonary systems and the current problem was reviewed with the patient immediately prior to the procedure. Present medications and doses reviewed in the EMR. Allergies and pertinent laboratory tests were also re viewedat this time in the EMR. The physical [...] signed by Apryl Cardenas DO> 09/08/24 1137 [facility] Work Phone: History general Narrative - Reported* Type Description Date Medical History hypertension Medical Historybreast cancerMedical HistoryGERDMedical Historybarretts esoph Medical Historymacular degeneration right eyeMedical HistoryAtrial fibrillation Medical HistoryAsthmaMedical Historydegenerative disc diseaseMedical History spinal stenosisSurgical Dadyadriauykxetylxdi2942Hdkegyab MvjljisJbibgep3679 Surgical HistoryD & N6750Ojxxnrsi HistoryD&T9444Llsmnvca Pgtbcyvtwneahgvomav0607 Surgical Uasixgwtqlrccphyqby6261Mstbchur HistoryCarpal Tunnel Release kig8769 Surgical Historycarpal tunnel optxbpp8354Cichjjqu HistoryLeft knee scope medial meniscus (other)2000Surgical Historyrepair of medial meniscus navd8326Dfdbpnpz HistoryBilateral Breast Ligarmwhs7231Ilnldszh Historypartial breast resection for hovwsg0833Ugyuifdw Chspkpwdyycjfkdbohjnmw4003Kxmjbaok HistoryLeft knee scope ( Other)2015Surgical HistoryLt hip ssplordscwb1685Zbsjqnkg HistoryLeft [facility] 05/19/2016Surgical HistoryRt hip hgppibavicf9295Mlzjgkzb HistoryLt knee10/2015 Surgical Historylumbar - Dr. Damons08/2019Surgical Historylumbar epidural12/2020 Surgical Historyback surgery09/02Hospitalization Historyas above in addition to giving to 3 times between 67 and 76 and admission for cardiac testingin 2011 [facility] Other History general Narrative - Reported* Type Description Date Medical History hypertension Medical Historybreast cancerMedical HistoryGERDMedical Historybarretts esoph Medical Historymacular degeneration right eyeMedical HistoryAtrial fibrillation Medical HistoryAsthmaMedical Historydegenerative disc diseaseMedical History spinal stenosisMedical HistoryArthritisMedical HistoryGoutMedical Historyhigh cholesterolMedical Historymigraine headacheMedical HistoryobesityMedical History pneumoniaMedical HistoryanxietySurgical Tnnucgcghhcviysbtxqd8362Uupceiqo History Lvkwpzi1039Hzonflvg HistoryD & V3257Btbnsuje HistoryD&U1944Gozwehsk History hmcfrsdfsxls2768Txkeoefc Huxgmxytmcdvfzcvbjc9927Nqtawewc HistoryCarpal Tunnel Release gdo4188Dqewmtlp Historycarpal tunnel ghbkfvt7539Qnnkewvt HistoryLeft knee scope medial meniscus (other)2000Surgical Historyrepair of medial meniscus dsdt2536Kmrmhvwj HistoryBilateral Breast Qmfznjxkq7944Bcehqdru Historypartial breast resection for omaiyo4023Xcptdpvg Aatdpwbtveijjlzhrlkkxd2309Ytbmmvvj HistoryLeft knee scope ( Other)2015Surgical HistoryLt hip ukmwyruedky5186 Surgical HistoryLeft THA05/19/2016Surgical HistoryRt hip xewcodvtajy2414Jrvdzjpa HistoryLt knee10/2015Surgical Historycervical - Dr. Damons08/2019Surgical Historylumbar epiduralurgical Historyback surgery - [facility] Hospitalization Historyas above in addition to giving to 3 times between 67 and 76 and admission for cardiac testingin 2011 [facility] Other History of Present illness NarrativePatient returns [...] necessary. We did advocate diet exercise and weightloss.-[facility]-Gunjan Davis DO Work Phone: History of Present illness [...] merits of a modest diet and weight loss.[facility] DO Work Phone: Hospital course Narrative No data available for this section [facility] Discharge instructions No data available for this section [facility] Discharge instructionsAmbulatory Orders* Referral to PT / OT / Speech (PT/OT/SP) Location: [facility] Work Phone: Progress note No data available for this section [facility] CenterReason for referral (narrative)* Consultation (Routine) - AuthorizedSpecialtyDiagnoses / ProceduresReferred By Contact Referred To ContactCardiology Diagnoses Paroxysmal atrial fibrillation (CMS/[facility]) Procedures Follow Up In Cardiology Danish Olguin MD [address] [place] [id number] Danish Olguin MD [address] [place] [address] 2, [address] [address] Referral IDStatusReasonStart DateExpiration DateVisits RequestedVisits [id number]/21/202312/20/202411 [facility] Work Phone: Reason for referral (narrative)No reason for referral information availableMarietta Memorial Hospital Work Phone: Summary Purpose Family History Unknown Family Member Name Dates Details Family history of atrial fib rillation: Mother, Sibling(V17.49, Z82.49) Status:ActiveS/P CABG (coronary artery bypass graft): Father(V45.81, Z95.1) Status:Active Unknown Family Member Name Dates Details Family history of atrial fib rillation: Mother, Sibling(V17.49, Z82.49) Status:ActiveS/P CABG (coronary artery bypass graft): Father(V45.81, Z95.1) Status:Active Unknown Family Member Name Dates Details Family history of atrial fib rillation: Mother, Sibling(V17.49, Z82.49) Status:ActiveS/P CABG (coronary artery bypass graft): Father(V45.81, Z95.1) Status:Active Unknown Family Member Name Dates Details Family history of atrial fib rillation: Mother, Sibling(V17.49, Z82.49) Status:ActiveS/P CABG (coronary artery bypass graft): Father(V45.81, Z95.1) Status:Active Relationship Condition Age at Onset Recorded Date/T giovanni father Malignant neoplasm of colon Unknown HypertensionUnknownFamily history of coronary artery bypass surgeryUnknownsister Malignant neoplasm of colonUnknownDiabetes mellitusUnknownNot Specified HypertensionUnknowngrandparentHypertensionUnknownbrotherDiabetes mellitusUnknown Unknown Family Member Name Dates Details Family history of atrial fib rillation: Mother, Sibling(V17.49, Z82.49) Status:ActiveS/P CABG (coronary artery bypass graft): Father(V45.81, Z95.1) Status:Active Relationship Condition Age at Onset Recorded Date/T giovanni father Malignant neoplasm of colon Unknown HypertensionUnknownFamily history of coronary artery bypass surgeryUnknownsister Malignant neoplasm of colonUnknownDiabetes mellitusUnknownmotherHypertension UnknowngrandparentHypertensionUnknownbrotherDiabetes mellitusUnknownbrother DeceasedUnknownfatherDeceasedUnknownMalignant neoplasmUnknownHeart disease Unknownfamily memberDeceasedUnknownmotherHeart diseaseUnknownsisterMalignant neoplasmUnknown Relationship Condition Age at Onset Recorded Date/T giovanni father Malignant neoplasm of colon Unknown Family history of coronary artery bypass surgeryUnknownHypertensionUnknownHeart diseaseUnknownsisterMalignant neoplasm of colonUnknownDiabetes mellitusUnknown motherDiabetes mellitusUnknowngrandparentHypertensionUnknownbrotherDiabetes mellitusUnknownbrotherDeceasedUnknownfatherDeceasedUnknownfamily memberDeceased UnknownsisterHypertensionUnknown Relationship Condition Age at Onset Recorded Date/T giovanni father Malignant neoplasm of colon Unknown Family history of coronary artery bypass surgeryUnknownHypertensionUnknownHeart diseaseUnknownsisterMalignant neoplasm of colonUnknownDiabetes mellitusUnknown motherDiabetes mellitusUnknowngrandparentHypertensionUnknownbrotherDiabetes mellitusUnknownMalignant neoplasmUnknownsisterMalignant neoplasmUnknownMultiple sclerosisUnknown Advance Directives Advance Directive Response Recorded Date/ Time Advance [...] REMIGIO PAIN M25.551 - Pain in right hipReason for VisitGreater trochanteric bursitis of right hip Chief Complaint OP SP RT REMIGIO PAIN M25.551 - Pain in right hip M48.061 Z98.890 M54.16Reason for VisitGreater trochanteric bursitis of right hip Chief Complaint OP SP RT REMIGIO PAIN M25.551 - Pain in right hip M48.061 Z98.890 M54.16 Y87Kpcnvd for VisitGreater trochanteric bursitis of right hip Chief Complaint OP SP RT REMIGIO PAIN M25.551 - Pain in right hip M48.061 Z98.890 M54.16 I10 mri resultsReason for VisitGreater trochanteric bursitis of right hip Greater trochanteric [...] lumbar fusion November 24, 2024 9:53a m Chief Complaint Admit Date Rt hip/knee pain November 14, 2024 10:19a m increased low back/BLE pain November 24 9:53am M54.16 Z98.1 November 24, 2024 11:14 am Essential Hypertension February 07, 2025 9 :59am Reason for Visit Admit Date Lumbar radiculopathy November 24, 2024 9:53 am S/P lumbar fusion November 24, 2024 9:53a m Essential (primary) hypertension February 072024 9:59am GERD (gastroesophageal reflux disease) J jessa 2024 9:59am Hyperlipidemia February 07, 2025 9:59 am Paroxysmal atrial fibrillation January 9:59am Sleep apnea with use of cont inuous positive airway pressure (CPAP) February 07, 2025 9:59am Chief Complaint Admit Date Rt hip/knee pain November 14, 2024 10:19a m increased low back/BLE pain November 24 9:53am M54.16 Z98.1 November 24, 2024 11:14 am Essential Hypertension February 07, 2025 9 :59am I48.0 February 07, 2025 10:0 3am Reason for Visit Admit Date Lumbar radiculopathy November 24, 2024 9:53 am S/P lumbar fusion November 24, 2024 9:53a m Atypical chest pain February 07, 2025 9:59 am Essential (primary) hypertension February 072024 9:59am GERD (gastroesophageal reflux disease) [facility] 2024 9:59am Hyperlipidemia February 07, 2025 9:59 am Paroxysmal atrial fibrillation January 9:59am Shortness of breath February 07, 2025 9:59 am Sleep apnea with use of cont inuous positive airway pressure (CPAP) February 07, 2025 9:59am Chief Complaint Admit Date Essential Hypertension February 07, 2025 9 :59am I48.0 February 07, 2025 10:0 3am R06.02 R07.89 April 05, 2025 8:12am Reason for Visit Admit Date Atypical chest pain February 07, 2025 9:59 am Essential (primary) hypertension February 072024 9:59am GERD (gastroesophageal reflux disease) [facility] 2024 9:59am Hyperlipidemia February 07, 2025 9:59 am Paroxysmal atrial fibrillation January 9:59am Shortness of breath February 07, 2025 9:59 am Sleep apnea with use of cont inuous positive airway pressure (CPAP) February 07, 2025 9:59am Chief Complaint Admit Date Essential Hypertension February 07, 2025 9 :59am I48.0 February 07, 2025 10:0 3am R06.02 R07.89 April 05, 2025 8:12am 6 week f/u April 10, 2025 9:39am Reason for Visit Admit Date Atypical chest pain February 07, 2025 9:59 am Essential (primary) hypertension February 072024 9:59am GERD (gastroesophageal reflux disease) [facility] 2024 9:59am Hyperlipidemia February 07, 2025 9:59 am Paroxysmal atrial fibrillation January 9:59am Shortness of breath February 07, 2025 9:59 am Sleep apnea with use of cont inuous positive airway pressure (CPAP) February 07, 2025 9:59am Atypical chest pain April 10, 2025 9:39am Essential (primary) hypertension Septemb er 2024 9:39am GERD (gastroesophageal reflux disease) S eptember 2024 9:39am Hyperlipidemia April 10, 2025 9:39am Paroxysmal atrial fibrillation April 10, 2025 9:39am Shortness of breath April 10, 2025 9:39am Sleep apnea with use of cont inuous positive airway pressure (CPAP) April 10, 2025 9:39am Reason for Referral SpecialtyDiagnoses / ProceduresReferred By ContactReferred To ContactCardiology Diagnoses Paroxysmal atrial fibrillation (Multi) Procedures Transthoracic Echo Complete ID ECHO TTHRC R-T 2D W/WOM-MODE COMPL SPEC&COLR D Quita Hall MD [address] [place], [place] [id number] Ref[facility] DateExpiration DateVisits RequestedVisits [id number] Review Perform Procedure [id number] / ProceduresReferred By ContactReferred To ContactCardiology Diagnoses Paroxysmal atrial fibrillation (Multi) Procedures Follow Up In Cardiology Quita Hall MD [address] [place] [address] Quita Hall MD [address] [place] [address] [facility] DateExpiration DateVisits RequestedVisits [id number] Reason aqua therapy - evalu ate and treat Diagnosis 1 DDD (degenerative di sc disease), lumbar (M51.36) Referral Organization [facility] urosurgery Referring Provider First Name Farnaz Referring Provider Last Name Lisa Referring Provider Specialty Nurse Pract saurav Referred Organization [facility] Referred Address [address] [place], [place],[address] Referred Provider Specialty Physical The rapist Referral Priority Routine Reason Please refer to Dr. Davis. Patient is former [facility] patient. Diagnosis 1 DDD (degenerative di sc disease), lumbar (M51.36) Diagnosis 2 Spondylolisthesis at L3-L4 level (M43.16) Diagnosis 3 Spondylolisthesis at L4-L5 level (M43.16) Diagnosis 4 Other spondylosis wi th radiculopathy, lumbar region (M47.26) Referral Organization [facility] Referring Provider First Name Demetrio Referring Provider Last Name Nilson GIBBS Referring Provider Specialty Orthopedic Surgery Referred Organization [facility] Referred Provider Eriberto Davis Referred Address [address] [facility],[address],[address] Referred Provider Specialty Neurological Surgery Referral Priority Routine General Notes Shaina Ramirez 12:02:24 PM >Received today, saw in November 2020. Sending p2p at this time Additional Source Comments INFORMATION SOURCE (unrecogn ized section and content) DATE CREATED AUTHOR 06/27/2018 [facility] DATE CREATED AUTHOR AUTHOR'S ORGANIZ ATION 07/24/2021 [facility] DATE CREATED AUTHOR AUTHOR'S ORGANIZ ATION 08/31/2021 [facility] [employer] DATE CREATED AUTHOR AUTHOR'S ORGANIZ ATION 10/03/2021 [facility] DATE CREATED AUTHOR AUTHOR'S ORGANIZ ATION 10/19/2021 [facility] DATE CREATED AUTHOR AUTHOR'S ORGANIZ ATION 06/12/2022 [employer] DATE CREATED AUTHOR AUTHOR'S ORGANIZ ATION 11/11/2022 [facility] DATE CREATED AUTHOR AUTHOR'S ORGANIZ ATION 12/19/2022 [facility] DATE CREATED AUTHOR AUTHOR'S ORGANIZ ATION 02/19/2023 [facility] DATE CREATED AUTHOR AUTHOR'S ORGANIZ ATION 08/28/2024 [facility] DATE CREATED AUTHOR AUTHOR'S ORGANIZ ATION 01/23/2025 [facility] DATE CREATED AUTHOR AUTHOR'S ORGANIZ ATION 01/30/2025 [facility] DATE CREATED AUTHOR AUTHOR'S ORGANIZ ATION 04/24/2025 [facility] Source Comments (unrecognize d section and content) In the event this informatio n is protected by the Federal Confidentiality of Alcohol and Drug Abuse Patient Records regulations: The Federal rules restrict any use of the information to criminally investigate or prosecute any alcohol or drug abuse patient.[facility] Reason for Visit (unrecogniz ed section and content) ReasonCommentsFollow UpReasonCommentsFollow-up1 yearReasonCommentsEKG visit SpecialtyDiagnoses / ProceduresReferred By ContactReferred To Contact Diagnoses Paroxysmal atrial fibrillation (Multi) Procedures ECG 12 Lead Danish Olguin MD [address] [facility] [address], [facility] [address] [place] [address] Referral IDStatusReasonStart DateExpiration DateVisits RequestedVisits [id number]-gyCqx change afibSpecialtyDiagnoses / ProceduresReferred By ContactReferred To Contact Cardiology Diagnoses Paroxysmal atrial fibrillation (Multi) Procedures Follow Up In Cardiology Andrzej Marinelli APRN-[employer]CHO[employer]ARD SUPERVISOR [address] [facility] [address], [facility] [address] [place] [address] Quita Hall MD [address] [place] [address] [address] [place] [address] Referral IDStatusReasonPort [place] DateExpiration DateVisits RequestedVisits [id number]v was seen at / for her sinues on Thursday - admits runny nose with clear mucus, sinus pressure, left ear pain, cough (improving). At urgent care they rx'd albuterol inhaler and a medrol dose [place]. Has colonoscopy scheduled for tomorrowReason CommentsMassPt noticed a lump on the top of head that increases and decreases in size about a week ago. Sometimes it is painful.ReasonCommentsChest Pain Care Teams (unrecognized sec tion and content) Team MemberRelationshipSpecialtyStart DateEnd Date Corinna Davis MD [address] [place] [address] [facility] Kyle Almendarez II [address] [place] [address] ReferringInternal Tfcxhlfn74/11/21 Team Status: Inactive Member Role Status Amanda Almendarez II MD Primary Care Provider Active Bruno Rubin ProviderActive Team Status: Active Member Role Status Amanda Almendarez II MD Primary Care Provider Active Team Status: Inactive Member Role Status Dates Kyle Almendarez II MD Primary Care Provider Active Peggy Santillan II ProviderActive Team Status: Inactive Member Role Status Dates Kyle Almendarez II MD Primary Care Provider Active Farnaz Gonzalez TRANSPORT TANK TECHNICIAN-CAttending ProviderActiveTeam MemberRelationshipSpecialty Start DateEnd Date Kyle Almendarez MD [address] [place] [address] PCP - GeneralInternal Mxigpojw89/21/23 Team Status: Inactive Member Role Status Amanda Almendarez II MD Primary Care Provider Active Start: February 11, 2024 End: February 10Moises Muñoz IIending ProviderActiveStart: February 11, 2024 End: February 11, 2024 Team Status: Active Member Role Status Amanda Almendarez II MD Primary Care Provider Active Start: February 11, 2024 Peggy Santillan II ProviderActiveStart: February 11, 2024 Team Status: Inactive Member Role Status Dates Kyle Almendarez II MD Primary Care Provider Active Start: March 05, 2024 End: March 05ale E Davis , MDAttending ProviderActiveStart: March 05, 2024 End: March 05, 2024 Team Status: Inactive Member Role Status Dates Kyle Almendarez II MD Primary Care Provider Active Start: March 28, 2024 End: March 28, 2024GePeggy Muhammad ProviderActiveStart: March 28, 2024 End: March 28, 2024 Team Status: Inactive Member Role Status Dates Kyle Almendarez II MD Primary Care Provider Active Start: March 31, 2024 End: March 31, 2024Chio Espinosa ProviderActiveStart: March 31, 2024 End: March 31, 2024Team MemberRelationshipSpecialtyStart DateEnd Date Kyle Almendarez MD [address] [place] [address] PCP - [facility]07/13/22 Kyle Almendarez MD [address] [place] [address] PCP - GeneralInternal Medicine11/24/22Team MemberRelationshipSpecialtyStart Date End Date Kyle Almendarez MD [address] [place] [address] PCP - [facility]07/13/22 Kyle Almendarez MD [address] [place] [address] PCP - GeneralInternal Medicine11/24/22Team MemberRelationshipSpecialtyStart Date End Date Kyle Almendarez MD [address] [place] [address] PCP - GeneralInternal Xshcobaq75/21/23Team MemberRelationshipSpecialtyStart Date End Date Kyle Almendarez MD [address] [place] [address] [facility] - [facility] Xavnytgj33/21/23Team MemberRelationshipSpecialtyStart Date End Date Kyle Almendarez MD [address] [place] [address] PCP - [facility]07/13/22 Kyle Almendarez MD [address] [place] [address] PCP - [facility]11/24/22Team MemberRelationshipSpecialtyStart Date End Date Kyle Almendarez MD [address] [place] [address] PCP - [facility]07/13/22 Kyle Almendarez MD [address] [place] [address] PCP - [facility]11/24/22Team MemberRelationshipSpecialtyStart Date End Date Kyle Almendarez MD [address] [place] [address] PCP - [facility]07/13/22 Kyle Almendarez MD [address] [place] [address] PCP - [facility]11/24/22 Team Status: Inactive Member Role Status Dates Kyle Almendarez II MD Primary Care Provider Active Start: September 02, 2024 End: September 02, 2024Chio Rangel ProviderActiveStart: September 02, 2024 End: September 02, 2024Team MemberRelationshipSpecialtyStart DateEnd Date Kyle Almendarez MD [address] [place] [address] PCP - [facility]07/13/22 Kyle Almendarez MD [address] [place] [address] PCP - GeneralInternal Medicine11/24/22 Jenae Warren, KATIE Clinical [facility]At[facility]08/19/24Team MemberRelationshipSpecialtyStart Date End Date Kyle Almendarez MD [address] [place] [address] PCP - [facility]07/13/22 Kyle Almendarez MD [address] [place] [address] [facility]22 Jenae Warren RN [facility]08/19/24 Team Status: Inactive Member Role Status Dates Kyle Almendarez II MD Primary Care Provider Active Start: September 08, 2024 End: September 08atherine L Ly , DOAttending ProviderActiveStart: September 08, 2024 End: September 08, 2024 Team Status: Active Member Role Status Dates Kyle Almendarez II MD Primary Care Provider Active Start: September 08, 2024 Apryl L Ly , DOAttending Provider, Other ProviderActiveStart: September 08, 2024 Team MemberRelationshipSpecialtyStart DateEnd Date Kyle Almendarez MD [address] [place] [address] PCP - [facility]07/13/22 Kyle Almendarez MD [address] [place] [address] [facility]11/24/22 Jenae Warren, RN [facility]08/19/24Team MemberRelationshipSpecialtyStart Date End Date Kyle Almendarez MD [address] [place] [address] PCP - [facility]07/13/22 Kyle Almendarez MD [address] [place] [address] PCP - GeneralInternal Medicine11/24/22 Jenae Warren, KATIE Clinical [facility]08/19/24 Team Status: Active Member Role Status Dates Kyle Almendarez II MD Primary Care Provider Active Start: September 13, 2024 Stormynamrata Gutierrez ProviderActiveStart: September 13, 2024 Team Status: Inactive Member Role Status Dates Kyle Almendarez II MD Primary Care Provider Active Start: November 14, 2024 End: November 14, 2024Simi Lujan ProviderActiveStart: November 14, 2024 End: November 14, 2024 Team Status: Inactive Member Role Status Dates Kyle Almendarez II MD Primary Care Provider Active Start: November 24, 2024 End: November 24, 2024Chio Espinosa ProviderActiveStart: November 24, 2024 End: November 24, 2024Team MemberRelationshipSpecialtyStart DateEnd Date Kyle Almendarez MD [address] [place] [address] PCP - [facility]07/13/22 Kyle Almendarez MD [address] [place] [address] [facility] - [facility]11/24/22 Alesia Zhu LPN [address] [place] [address] 09/30/24Team MemberRelationshipSpecialtyStart DateEnd Date Kyle Almendarez MD [address] [place] [address] PCP - [facility]07/13/22 Kyle Almendarez MD [address] [place] [address] PCP - GeneralInternal Medicine11/24/22 Alesia Zhu LPN [address] [place] [address] 09/30/24Team MemberRelationshipSpecialtyStart DateEnd Date Kyle Almendarez MD [address] [place] [address] PCP - [facility]07/13/22 Kyle Almendarez MD [address] [place] [address] PCP - GeneralInternal Medicine11/24/22 Alesia Zhu LPN [address] [place] [address] 09/30/24Team MemberRelationshipSpecialtyStart DateEnd Date Kyle Almendarez MD [address] [place] [address] PCP - [facility]07/13/22 Kyle Almendarez MD [address] [place] [address] PCP - GeneralInternal Medicine11/24/22 Alesia Zhu LPN [address] [place] [address] 09/30/24 Team Status: Inactive Member Role Status Dates Kyle Almendarez II MD Primary Care Provider Active Start: February 07, 2025 End: February 07, 2025BERNIE Shoemakererring ProviderActiveStart: February 07, 2025 End: February 07, 2025Gesuman Yañez MDAttending ProviderActiveStart: February 07, 2025 End: February 07, 2025 Team Status: Active Member Role Status Dates Kyle Almendarez II MD Primary Care Provider Active Start: February 07, 2025 Nuno Yañez , MDAttending ProviderActiveStart: February 07, 2025 Team Status: Inactive Member Role Status Dates Kyle Almendarez II MD Primary Care Provider Active Start: February 07, 2025 End: February 07, 2025Georrichard Yañez , MDAttending ProviderActiveStart: February 07, 2025 End: February 07, 2025 Team Status: Active Member Role Status Dates Kyle Almendarez II MD Primary Care Provider Active Start: April 05, 2025 Rosi Cuellar ProviderActiveStart: April 05, 2025 Elicia Lam , MDAttending ProviderActiveStart: April 05, 2025 ARIANE Guerreroeferring ProviderActiveStart: April 05, 2025 Team Status: Inactive Member Role Status Amanda Almendarez II MD Primary Care Provider Active Start: April 10, 2025 End: April 10darius Patricia APRNAtsherie ProviderActiveStart: April 10, 2025 End: April 10, 2025Team MemberRelationshipSpecialtyStart DateEnd Date Kyle Almendarez MD [address] [address] PCP - [facility]07/13/22 Kyle Almendarez MD [address] [facility] [address] [place] [address] PCP - GeneralInternal Medicine11/24/22 Jenae Warren, KATIE [address] [place] [address] Clinical AdvocateFamily Medicine Alesia Zhu LPN [address] [facility] [address] [place] [address] 09/30/24 Goals (unrecognized section and content) Goals [...] BE BASED ON THE PRIMARY CLINICAL RECORDS. [facility]. provides no warranty or guarantee of the accuracy or completeness of information in this document.
== END 2025-06-01 12:41 | disposition home or self-care (01) ==
LOC: MAMMO 12:40
PROVIDERS: PCP Internal Medicine; Visit Provider Physician Assistant
DX: Z12.31 Encounter for screening mammogram for malignant neoplasm of breast (principal); Z85.3 Personal history of malignant neoplasm of breast; Z80.3 Family history of malignant neoplasm of breast; Z80.1 Family history of malignant neoplasm of trachea, bronchus and lung; Z80.42 Family history of malignant neoplasm of prostate; Z80.0 Family history of malignant neoplasm of digestive organs
CPT/HCPCS: 77063; 77067

== ENCOUNTER 2025-06-12 10:41 | Outpatient (RCR) | payer OTHER, SELFPAY | END 2025-07-12 13:11 | disposition home or self-care (01) | LOC: MM 10:41 | PROVIDERS: PCP Internal Medicine; Visit Provider Internal Medicine | DX: Z51.81 Encounter for therapeutic drug level monitoring (principal); Z79.01 Long term (current) use of anticoagulants; I48.20 Chronic atrial fibrillation, unspecified | CPT/HCPCS: 85610; G0463 ==